=== PATIENT | male | born 1940 | race Caucasian/White ===

== ENCOUNTER 2023-12-16 03:29 | Emergency (ER) | payer MEDICARE, SELFPAY ==
[2023-12-16] VITALS (9 sets, daily range): BP systolic 149–202; BP diastolic 51–78; BMI 27.4
--- NOTE | 2023-12-16 04:08 | ED.GENMED ---
History of Present Illness
<BRIAN Hernandez - Last Filed: 12/16/23 21:51>
General
Chief Complaint: Chest Pain
Source: patient
Exam Limitations: none
Time Seen by Provider: 12/16/23 03:52
Nursing documentation reviewed up to this point in time: agreed with
Travel History
Have you had any contact with someone who has COVID-19?: No
Do you have any symptoms of coronavirus? Fever > 100 degrees, chills, cough, shortness of breath, sore throat, loss of taste or smell, muscle aches, or headache?: No
History of Present Illness
History of Present Illness:
Pt is a 83 YOM with significant ACS Hx including NSTEMI 2 weeks ago and RCA stenting and CKD stage 4 with dialysis presenting with 7/10 L sided crushing chest pain. Pt mentioned pain began around 0000 this morning and has persisted. Pt mentioned
this is similar pain to recent AR, but less severe. Pt mentioned accompanying mild LYON, dizziness, and SOB, fatigue. Pt is not hypoxic at this time. Pt gets dialysis Tues and Sat and only missed an appt while in hospital for his recent AR. Pt denied
any recent cough, rhinorrhea, fevers, vision changes, N/V/D/C, sensory changes. NKDA.
Past History
<BRIAN Hernandez - Last Filed: 12/16/23 21:51>
Past History
ED Past Medical History: CAD, HTN, Hypercholesterolemia, NIDDM, Renal failure and Other (TIA 2002)
ED Past Surgical History: Cardiac (Cardiac stents)
Social History
Tobacco: Former smoker
Alcohol: Occasional
Personal:
Living: with family
Employment: Retired
Review of Systems
<BRIAN Hernandez - Last Filed: 12/16/23 21:51>
Review of Systems
Allergies reviewed?: Yes
All Other Systems: ROS reviewed and negative except as documented in HPI and ROS
Constitutional: Reports fatigue
EENT: Reports no symptoms
Respiratory: Reports trouble breathing
Cardiac: Reports chest pain
ABD/GI: Reports no symptoms
: Reports no symptoms
Musculoskeletal: Reports no symptoms
Skin: Reports no symptoms
Neurological: Reports dizzy and headache
Hematologic/Lymphatic: Reports no symptoms
Psychiatric: Reports no symptoms
Phy Exam
<BRIAN Hernandez - Last Filed: 12/16/23 21:51>
General Physical Exam
General Presentation: moderate distress
General age: appears stated age
General Skin: warm, dry and pale
General Habitus: normal
General Mental: alert
General Hydration: appears well hydrated
ENT Exam
ENT Exam: EOMI
Eye Exam
Eye Exam: PERRL and EOMI
Cardiovascular Exam
Cardiovascular Exam: regular rate/rhythm, no edema, no gallop, no JVD, no murmur and normal peripheral pulses
Pulmonary Exam
Pulmonary Exam: lungs clear, no respiratory distress, no rales, no crackles, no rhonchi, no stridor, no wheezing and no cough
Gastrointestinal Exam
Gastrointestinal Exam: normal bowel sounds, non tender, soft, no pulsatile mass, non distended, no abdominal hernia and no masses
Neurological Exam
Neurological Exam: alert, oriented x3, no motor deficits, no sensory deficits and speech normal
Musculoskeletal Exam
Musculoskeletal Exam: neuro vasc intact
Skin Exam
Skin Exam: warm/dry, no rash and pallor
Psychiatric Exam
Psychiatric Exam: normal mood/affect
Scores
<BRIAN Hernandez - Last Filed: 12/16/23 21:51>
Heart Score for Chest Pain Patients
Heart Score for Chest Pain Patients: 6
Heart Score Risk: 20.3% MACE over next 6 weeks
<La R. Sheets, DO - Last Filed: 12/16/23 07:35>
Heart Score for Chest Pain Patients
STEMI patient?: No
History: Moderately Suspicious
ECG: Normal
Age: >/= 65 years
Risk Factors: >/= 3 Risk Factors or History of CAD
Troponin: >1 - <3 x Normal Limit
Heart Score for Chest Pain Patients: 6
Heart Score Risk: 20.3% MACE over next 6 weeks
<Evens Glover DO - Last Filed: 12/16/23 08:45>
Heart Score for Chest Pain Patients
Heart Score for Chest Pain Patients: 6
Heart Score Risk: 20.3% MACE over next 6 weeks
Course
<ST DavidIA - Last Filed: 12/16/23 21:51>
Orders/Labs/Results
Orders:
Orders
12/16/23 03:30
Electrocardiogram (*1) Urgent
Reason for Study: Chest Pain
EKG- Treatment ONCE
12/16/23 03:54
CMP [Comprehensive Metabolic Panel] Urgent
Complete Blood Count/With Diff Urgent
Troponin I Urgent
12/16/23 05:23
Aspirin Chewable [Low Strength Aspirin] 324 mg PO NOW STA
Nitroglycerin Sublingual [Nitrostat (Sublingual)] 0.4 mg SL NOW STA
12/16/23 05:36
Troponin I Urgent
12/16/23 05:54
Electrocardiogram (*1) Urgent
Reason for Study: Other
Other Reason for Exam: repeat EKG with trop
EKG- Treatment ONCE
12/16/23 06:03
Nitroglycerin Sublingual [Nitrostat (Sublingual)] 0.4 mg SL NOW STA
12/16/23 06:45
Nitroglycerin Sublingual [Nitrostat (Sublingual)] 0.4 mg SL NOW STA
12/16/23 07:33
Nitroglycerin Ointment [Nitro-Bid] 1 inch TOPICAL NOW STA
12/16/23 08:59
Amlodipine [Norvasc] 5 mg PO NOW STA
Amlodipine [Norvasc] 5 mg PO NOW STA
Abnormal Lab Results
12/16/23 12/16/23
03:54 05:36
WBC 4.0 L 10^3/uL
(4.8-10.8)
RBC 3.21 L 10^6/uL
(4.70-6.10)
Hgb 10.2 L g/dL
(13.0-18.0)
Hct 31.0 L %
(39.0-52.0)
MCV 96.6 H fL
(80.0-94.0)
MCH 31.8 H pg
(27.0-31.0)
MCHC 32.9 L g/dL
(33.0-37.0)
RDW 16.9 H %
(11.5-14.5)
MPV 10.6 H fL
(7.4-10.4)
Absolute Lymphs (auto) 0.8 L 10^3/uL
(1.2-3.4)
Immature Gran % 1.0 H %
(0-0.5)
Lymphocytes % 19.3 L %
(20.5-51.1)
Monocytes % 15.8 H %
(1.7-9.3)
BUN 55 H mg/dl
(9-20)
Creatinine 6.9 H* mg/dL
(0.7-1.3)
Glucose 105 H mg/dl
(70-99)
Calcium 7.6 L mg/dl
(8.4-10.2)
Troponin I 0.192 H* ng/ml 0.178 H* ng/ml
Total Protein 6.0 L g/dl
(6.3-8.2)
12/16/23 03:54
12/16/23 03:54
Vital Signs
Initial and Last Documented VS:
Initial Vital Signs
Pulse Pulse Ox
74 98
12/16/23 03:46 12/16/23 03:46
Last Documented Vital Signs
Temp Pulse Resp BP Pulse Ox
97.5 F 98 19 149/51 97
12/16/23 07:58 12/16/23 09:28 12/16/23 09:28 12/16/23 09:28 12/16/23 09:28
<La Sheets DO - Last Filed: 12/16/23 07:35>
Orders/Labs/Results
Orders:
Orders
12/16/23 03:30
Electrocardiogram (*1) Urgent
Reason for Study: Chest Pain
EKG- Treatment ONCE
12/16/23 03:54
CMP [Comprehensive Metabolic Panel] Urgent
Complete Blood Count/With Diff Urgent
Troponin I Urgent
12/16/23 05:23
Aspirin Chewable [Low Strength Aspirin] 324 mg PO NOW STA
Nitroglycerin Sublingual [Nitrostat (Sublingual)] 0.4 mg SL NOW STA
12/16/23 05:36
Troponin I Urgent
12/16/23 05:54
Electrocardiogram (*1) Urgent
Reason for Study: Other
Other Reason for Exam: repeat EKG with trop
EKG- Treatment ONCE
12/16/23 06:03
Nitroglycerin Sublingual [Nitrostat (Sublingual)] 0.4 mg SL NOW STA
12/16/23 06:45
Nitroglycerin Sublingual [Nitrostat (Sublingual)] 0.4 mg SL NOW STA
12/16/23 07:33
Nitroglycerin Ointment [Nitro-Bid] 1 inch TOPICAL NOW STA
12/16/23 08:59
Amlodipine [Norvasc] 5 mg PO NOW STA
Amlodipine [Norvasc] 5 mg PO NOW STA
Abnormal Lab Results
12/16/23 12/16/23
03:54 05:36
WBC 4.0 L 10^3/uL
(4.8-10.8)
RBC 3.21 L 10^6/uL
(4.70-6.10)
Hgb 10.2 L g/dL
(13.0-18.0)
Hct 31.0 L %
(39.0-52.0)
MCV 96.6 H fL
(80.0-94.0)
MCH 31.8 H pg
(27.0-31.0)
MCHC 32.9 L g/dL
(33.0-37.0)
RDW 16.9 H %
(11.5-14.5)
MPV 10.6 H fL
(7.4-10.4)
Absolute Lymphs (auto) 0.8 L 10^3/uL
(1.2-3.4)
Immature Gran % 1.0 H %
(0-0.5)
Lymphocytes % 19.3 L %
(20.5-51.1)
Monocytes % 15.8 H %
(1.7-9.3)
BUN 55 H mg/dl
(9-20)
Creatinine 6.9 H* mg/dL
(0.7-1.3)
Glucose 105 H mg/dl
(70-99)
Calcium 7.6 L mg/dl
(8.4-10.2)
Troponin I 0.192 H* ng/ml 0.178 H* ng/ml
Total Protein 6.0 L g/dl
(6.3-8.2)
12/16/23 03:54
12/16/23 03:54
Vital Signs
Initial and Last Documented VS:
Initial Vital Signs
Pulse Pulse Ox
74 98
12/16/23 03:46 12/16/23 03:46
Last Documented Vital Signs
Temp Pulse Resp BP Pulse Ox
97.5 F 98 19 149/51 97
12/16/23 07:58 12/16/23 09:28 12/16/23 09:28 12/16/23 09:28 12/16/23 09:28
<Evens Glover DO - Last Filed: 12/16/23 08:45>
Orders/Labs/Results
Orders:
Orders
12/16/23 03:30
Electrocardiogram (*1) Urgent
Reason for Study: Chest Pain
EKG- Treatment ONCE
12/16/23 03:54
CMP [Comprehensive Metabolic Panel] Urgent
Complete Blood Count/With Diff Urgent
Troponin I Urgent
12/16/23 05:23
Aspirin Chewable [Low Strength Aspirin] 324 mg PO NOW STA
Nitroglycerin Sublingual [Nitrostat (Sublingual)] 0.4 mg SL NOW STA
12/16/23 05:36
Troponin I Urgent
12/16/23 05:54
Electrocardiogram (*1) Urgent
Reason for Study: Other
Other Reason for Exam: repeat EKG with trop
EKG- Treatment ONCE
12/16/23 06:03
Nitroglycerin Sublingual [Nitrostat (Sublingual)] 0.4 mg SL NOW STA
12/16/23 06:45
Nitroglycerin Sublingual [Nitrostat (Sublingual)] 0.4 mg SL NOW STA
12/16/23 07:33
Nitroglycerin Ointment [Nitro-Bid] 1 inch TOPICAL NOW STA
12/16/23 08:59
Amlodipine [Norvasc] 5 mg PO NOW STA
Amlodipine [Norvasc] 5 mg PO NOW STA
Abnormal Lab Results
12/16/23 12/16/23
03:54 05:36
WBC 4.0 L 10^3/uL
(4.8-10.8)
RBC 3.21 L 10^6/uL
(4.70-6.10)
Hgb 10.2 L g/dL
(13.0-18.0)
Hct 31.0 L %
(39.0-52.0)
MCV 96.6 H fL
(80.0-94.0)
MCH 31.8 H pg
(27.0-31.0)
MCHC 32.9 L g/dL
(33.0-37.0)
RDW 16.9 H %
(11.5-14.5)
MPV 10.6 H fL
(7.4-10.4)
Absolute Lymphs (auto) 0.8 L 10^3/uL
(1.2-3.4)
Immature Gran % 1.0 H %
(0-0.5)
Lymphocytes % 19.3 L %
(20.5-51.1)
Monocytes % 15.8 H %
(1.7-9.3)
BUN 55 H mg/dl
(9-20)
Creatinine 6.9 H* mg/dL
(0.7-1.3)
Glucose 105 H mg/dl
(70-99)
Calcium 7.6 L mg/dl
(8.4-10.2)
Troponin I 0.192 H* ng/ml 0.178 H* ng/ml
Total Protein 6.0 L g/dl
(6.3-8.2)
12/16/23 03:54
12/16/23 03:54
Vital Signs
Initial and Last Documented VS:
Initial Vital Signs
Pulse Pulse Ox
74 98
12/16/23 03:46 12/16/23 03:46
Last Documented Vital Signs
Temp Pulse Resp BP Pulse Ox
97.5 F 98 19 149/51 97
12/16/23 07:58 12/16/23 09:28 12/16/23 09:28 12/16/23 09:28 12/16/23 09:28
<BRIAN Hernandez - Last Filed: 12/16/23 21:51>
MDM/Problems Addressed
Differential Diagnosis Includes:
ACS, acute HF, PE, pericarditis
MDM/Problems Addressed:
83 YOM presenting with chest pain
Chronic conditions affecting care:
ACS
Chronic conditions affecting care: Kidney disease
Acute Exacerbation and/or Progression of Chronic Illness:
ACS
Acute Exacerbation and/or Progression of Chronic Illness: Kidney disease
<BRIAN Hernandez - Last Filed: 12/16/23 21:51>
*Pulse Oximetry
Patient hypoxic: no
*EKG
Interpreted by ED Provider?: Yes
Interpretation: abnormal
Comparison EKG: changes noted
Rate: normal
Rhythm: sinus
[place]: normal axis
Interval: normal interval
QRS Pattern: right bundle branch block
Ischemia: no ischemia
*Bevel Polisher Interpretation
Rate: normal
Interpretation: normal
Rhythm: sinus
*Critical Care Note
Total Time (30-74mins, 75-104mins- exclusive of procedures): Not Applicable
<La Sheets DO - Last Filed: 12/16/23 07:35>
*EKG
Comparison EKG: no changes (Unchanged from previous November 28, 2023)
<BRIAN Hernandez - Last Filed: 12/16/23 21:51>
Update Note
Update Note:
12/16/23 0558: Pt is resting comfortably in bed. Pt admitted no pain relief with nitroglycerin dose. SBP in 190s at this time.
12/16/23 0645: Pt resting comfortably in bed. Pt mentioned improvement in pain. SBP in 170s at this time.
<Evens Glover, - Last Filed: 12/16/23 08:45>
Update Note
Update Note:
12/16/23 0558: Pt is resting comfortably in bed. Pt admitted no pain relief with nitroglycerin dose. SBP in 190s at this time.
12/16/23 0645: Pt resting comfortably in bed. Pt mentioned improvement in pain. SBP in 170s at this time.
0839: Pt seen by cardiology. They have cleared the patient for discharge. They will add amlodipine to medication regiment. Discussed case with Dr. Vargas, pt needs to go to dialysis today and they do have room for him to go.
ED Attending Note
<BRIAN Hernandez - Last Filed: 12/16/23 21:51>
-
Portions of this chart may have been created with voice recognition software.� Occasional wrong word or��sound alike� substitutions may have occurred due to the inherent limitations of voice recognition software.
<La Sheets DO - Last Filed: 12/16/23 07:35>
ED Attending Note
Patient seen and examined by attending physician: Yes
I performed the substantive portion of visit, reviewed & personally made and approve the management plan that is documented in note by myself or BRYAN.: Yes
I performed a history and physical exam of patient and discussed management with resident, I reviewed resident's note and agree with documented findings and plan of care.: Yes
ED Attending Note:
This is an 83-year-old gentleman who has history significant for coronary artery disease status post CABG 2017, hypertension, hyperlipidemia, end-stage renal disease on dialysis Tuesdays and Saturdays. He has history of paroxysmal A-fib on chronic
anticoagulation with Eliquis. History of prior strokes x 2 with recent hospitalization November 26 until December 02 when he presented with crushing substernal chest pain, EKG changes noting flipped T's anteriorly and questionable ST elevation
inferiorly. Urgent catheterization revealed 99% stenosis mid RCA where he received PTCA with stent.
Troponin peak at 26.8.
Hospitalization complicated with persistent abdominal pain, intermittent diarrhea, evaluated by GI. At 1 point concern for intermittent ischemic bowel but abdominal pain eventually resolved and patient was discharged to home on December 02 with
continuation of Eliquis and addition of Plavix.
Patient states he has been feeling relatively well until midnight tonight when he developed similar substernal chest pain, not as severe as November 26 but similar in quality and he is concern for recurrent AR. He denies shortness of breath, no
nausea nor vomiting, no palpitations, no dizziness nor lightheadedness. He has not had a cough, no fever nor chills. No return of abdominal pain, no diarrhea.
GENERAL: 83-year-old gentleman appears his stated age. Asleep upon initially entering exam room, awakens easily. He continues with some substernal chest pain, mild but not completely resolved. Overall appears comfortable.
EYE: anicteric
NECK: Supple, nontender, no meningismus, no significant adenopathy. No JVD.
ENT: oral mucosa is moist. No rhinorrhea.
CARDIAC: Regular rate and rhythm. no murmur.
LUNGS: Clear breath sounds bilaterally, no acute respiratory distress, no wheezes/rales/rhonchi
ABDOMEN: Soft, nondistended, without focal tenderness, no r/g, normoactive BS.
NEUROLOGICAL: Alert and oriented x3, no focal neuro deficits.
SKIN: Warm and dry, normal color, skin intact. No rash.
MUSCULOSKELETAL: No C/C/E. peripheral pulses are full and equal b/l. No palpable tenderness. AV graft left upper extremity.
PSYCH: Normal and appropriate interaction.
Concern for ACS/unstable angina. GERD. Less likely chest wall pain, pneumonia, CHF.
EKG shows normal sinus rhythm, right bundle branch block, no acute ST-T wave abnormalities and overall similar and unchanged from most recent EKG November 28. The prior flipped T waves anteriorly and minimal ST segment elevation in lead III noted on
EKG November 26 have resolved.
Patient noted to have significant systolic hypertension. Similar sporadic hypertension noted during most recent hospitalization.
He denies shortness of breath and lungs are clear to auscultation, nothing to suggest fluid overload.
Labs show troponin of 0.192 which is marked downtrend from most recent troponin of 11 on November 28. At this point unclear if this is continued downtrend from previous non-STEMI versus acute recurrent coronary ischemia.
Will give 325 mg of chewable aspirin and trial of sublingual nitroglycerin.
Will plan to repeat troponin and EKG at 6 AM. Will plan to contact cardiology.
12/16/2023 0646 AM
Troponin has trended down to 0.178.
Patient has had no relief of chest pain after 1 sublingual nitroglycerin but now reports mild to moderate relief after second sublingual nitroglycerin.
Hypertension is improving. Hypertension is improving, 170/70.
Will give additional sublingual nitroglycerin.
Awaiting return call from cardiology.
07:30
Pt pain free and comfortable after 3rd NTG.
Resting comfortably
BP improved 150/78---his baseline.
Case d/w cardiology who will evaluate at bedside this am.
Will add NTG paste.
Discharge Plan
Departure
Patient Disposition: Home (Routine Discharge)
Date of Disposition: 12/16/23
Time of Disposition: 08:41
Patient with high blood pressure during this ER visit?: Yes
Condition: Fair
Discharge Problem:
chest pain r/o [place]
Instructions: Chest Pain DCA Follow Up
Prescriptions:
New
amlodipine 5 mg tablet
5 mg PO DAILY Qty: 30 11RF
nitroglycerin 0.3 mg tablet, sublingual
0.3 mg sublingual Q5-15M PRN (Reason: chest pain) Qty: 30 0RF
No Action
furosemide 40 MG tablet
80 mg PO BID@0800,1600
Eliquis 2.5 MG tablet
2.5 mg PO BID Qty: 60 0RF
atorvastatin 80 MG tablet
80 mg PO HS
tamsulosin 0.4 MG capsule
0.4 mg PO BID
melatonin 3 mg Capsule
3 mg PO HS PRN (Reason: Sleep)
clopidogrel 75 mg Tablet
75 mg PO DAILY Qty: 30 0RF
pantoprazole 40 mg Tablet,Delayed Release (Dr/Ec)
40 mg PO DAILY Qty: 30 0RF
metoprolol succinate 25 mg Tablet Extended Release 24 Hr
12.5 mg PO DAILY Qty: 30 0RF
Referrals:
Jose Tamez MD [Family Provider] -
Ed Mak MD [Active] - 12/24/23 10:00 am (You have an appt to see Dr. Mak's physician paperhanger assistant, Laney, at the [facility] on 12/24/23 at 10 AM. Please call [phone] if you need to reschedule.)
Activity Restrictions/Additional Instructions:
Go right to dialysis
Interventions
Interventions:
*Risk Screen - Suicide Last Done: 12/16/23 03:53
*General Assessment Last Done: 12/16/23 03:53
*Neglect/Abuse Screening Last Done: 12/16/23 03:53
ED- Fall Risk Assessment Last Done: 12/16/23 07:58
*ED COVID-19 Vaccine History Last Done: 12/16/23 03:53
*Nursing Disposition Last Done: 12/16/23 09:28
ED- Cardiac Assessment Last Done: 12/16/23 07:58
Discharge Date and Time
Discharge Date/Time: 12/16/23 09:25
[2023-12-16 04:13] LABS: % Basophils 0.2 % (0-2); % Eosinophils 4.7 % (0-6); % Lymphocytes 19.3 % (20.5-51.1); % Monocytes 15.8 % (1.7-9.3); Absolute Eosinophils 0.2 10^3/uL (0-0.7); Absolute Lymphocytes 0.8 10^3/uL (1.2-3.4); Absolute Monocytes 0.6 10^3/uL (0.1-0.6); Absolute Neutrophils 2.4 10^3/uL (1.4-6.5); Hemoglobin 10.2 g/dL (13.0-18.0); Mean Corp Hgb Conc. 32.9 g/dL (33.0-37.0); Mean Corpuscular Hgb 31.8 pg (27.0-31.0); Mean Corpuscular Volume 96.6 fL (80.0-94.0); Mean Platelet Volume 10.6 fL (7.4-10.4); Nucleated Red Blood Cells % 0 % (-); Platelet Count 146 10^3/uL (130-400); Red Blood Cell Count 3.21 10^6/uL (4.70-6.10); Red Cell Dist. Width 16.9 % (11.5-14.5)
[2023-12-16 04:50] LABS: ALT (SGPT) 12 U/L (0-50); AST (SGOT) 22 U/L (17-59); Albumin 3.6 g/dl (3.5-5.0); Alkaline Phosphatase 72 U/L (38-126); Blood Urea Nitrogen 55 mg/dl (9-20); Calcium 7.6 mg/dl (8.4-10.2); Carbon Dioxide 27 mmol/L (22-30); Chloride 102 mmol/L (98-107); Estimated Creatinine Clearance 8 ml/min; Glucose 105 mg/dl (70-99); Potassium 4.3 mmol/L (3.5-5.1); Sodium 141 mmol/L (135-145); Total Bilirubin 0.6 mg/dl (0.2-1.3); Troponin I 0.192 ng/ml; eGFR 7.31
[2023-12-16] MEDS: LOW STRENGTH ASPIRIN 324 MG PO (05:32)
[2023-12-16] MEDS: NITROSTAT (SUBLINGUAL) 0.400000000000000022 MG SL ×3 (05:33→06:46)
[2023-12-16 06:13] LABS: Troponin I 0.178 ng/ml
[2023-12-16] MEDS: NITRO-BID 1 INCH TOPICAL (07:52)
--- NOTE | 2023-12-16 08:52 | CON.CAR ---
Addendum entered and electronically signed by Savanna Julien MD 12/16/23 12:36:
I saw and examined the patient.
The Appraiser Personal Property's note was reviewed and I agree with the note.
Comment: Patient is known to me from recent admission and PCI. Briefly he is a 83-year-old gentleman with past medical history of hypertension, hyperlipidemia, end-stage renal disease on dialysis, coronary artery disease status post prior bypass
with recent acute coronary syndrome status post RCA PCI on Plavix, paroxysmal atrial fibrillation on Eliquis and chronic amiodarone, multiple prior strokes, bilateral carotid artery disease, medication nonadherence who presents after a recurrent
episode of chest pressure while he was sitting in bed watching TV last night lasting for couple of hours. On presentation with ongoing chest discomfort his blood pressures were noted to be significantly elevated in the 200s systolic and he was
given to sublingual nitroglycerin with pain subsiding as his blood pressures improved. Most recently he continues to be hypertensive at 140s to 150s systolic. He is currently chest pain-free and has not had any recurrent symptoms.
Vital signs stable other than blood pressures as noted above. Exam is notable for a gentleman in no acute distress, normal S1 and S2, irregularly irregular heart rhythm, 2 out of 6 systolic ejection murmur at right upper sternal border, lungs are
clear to auscultation bilaterally, abdomen is soft, nontender, nondistended, warm extremities without significant edema.
Lab work reviewed with very low-level troponin, significantly reduced compared to recent admission where he presented with acute coronary syndrome. ECG is unchanged with stable right bundle branch block and ST-T wave changes.
Recommendations:
I do not think his discomfort at this time was due to acute coronary syndrome however more in the setting of poorly controlled hypertension. We will add 5 mg of amlodipine for better blood pressure control and continue his other medications
including low-dose beta-alicia and Lasix. Of note he has not tolerated higher doses of beta-blockers before given baseline bradycardia.
I reemphasized the importance of not missing any Plavix or Eliquis doses given recent PCI. Strongly encourage medication adherence to all his other cardiac medications.
Plan to continue outpatient dialysis as scheduled. He will follow-up with cardiology as scheduled on December 24, 2023.
Discussed plan with ED staff.
Savanna Julien MD, [facility], [facility]
Original Note:
Consultation
Consultation Request
Date/Time Consultation Requested: 12/16/23
Date/Time Consultation Performed: 12/16/23
Requesting Provider: Drs. Sheets and Adalberto in the ER
Performing Provider: Dr. Julien
Reason for Consultation: Chest pain, elevated Troponin
Medical History
-
History of Present Illness:
Patient came to [facility] very early this morning with chest pain and cardiology is now consulted. Patient was just admitted 11/26/23 until 12/02/23 with a NSTEMI peak Troponin 26.8 and he received a 2.75 mm Xience to mid RCA. EF was stable by echo.
Admission was prolonged due to nausea an vomiting. Also patient with a h/o ESRD and is on HD Tuesdays and Saturdays only by his direction/choice. He still makes urine. Patient was discharged to home with VN and has been driving himself to HD without
issue. Today is Friday and he says that he had his usual HD session on Friday. He had uneventful days Friday and Friday and then awoke very early this morning with a severe chest pain that felt identical to his [place] pain, but described as being
less intense. He came to [facility] and his initial Troponin was 0.192. ECG with a stable RBBB. Patient was also noted to be HTN at 202/71 initially. Patient was given NTG SL x1 and no real improvement in chest pain, but BP improved to 175/67. Patient
given a 2nd NTG SL and chest pain improved and BP again improved to 151/78. BP is now 149/51 and he is pain free. Patient is due for HD today.
PMH:
CAD
s/p LCX JOSE & PDA PTCA 2007
s/p CABG x3 GALVEZ to LAD, SVG sequential to OM-2 and OM-3 05/19/17
s/p NSTEMI and 2.75 mm Xience to mid RCA 11/26/2023
Sinus bradycardia/right bundle branch block
Paroxysmal Afib
Chronic Eliquis OAC
Chronic amiodarone
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
Linq monitor, no longer functional since 2019
HTN
Hyperlipidemia
ESRD on HD with LUE fistula
stenting of left upper extremity brachiocephalic fistula January 2022
h/o bilateral carotid disease
h/o medical noncompliance
h/o thrombocytopenia
Past Medical History
Past Medical History: Other (in HPI)
Past Surgical History: Cardiac (Circ and PDA PCI 2007, CABG 2016 and RCA PCI 11/26/23) and Other (LUE AV Fistula w/ stenting of left upper extremity brachiocephalic fistula January 2022)
Social History
Tobacco: Former Smoker
Alcohol: Occasional
Drug: None
Personal:
Living: Alone
Family History
Family History: Other (mother at age 70 from stroke, father at age 61 from [place]. No family history of lung cancer, lung disease)
Allergies / Home Medications
Allergy/AdvReac Type Severity Reaction Status Date / Time
No Known Allergies Allergy Verified 12/16/23 03:33
Medication Instructions Recorded Confirmed Type
furosemide 40 mg tablet 80 mg PO BID@0800,1600 Fluid 05/04/21 11/26/23 History
retention/Swelling
apixaban 2.5 mg tablet (Eliquis) 2.5 mg PO BID blood thinner #60 05/12/21 11/26/23 Rx
tabs
atorvastatin 80 mg tablet 80 mg PO HS High cholesterol 01/03/22 11/26/23 History
tamsulosin 0.4 mg capsule 0.4 mg PO BID Urinary issue 02/08/22 11/26/23 History
melatonin 3 mg capsule 3 mg PO HS PRN Sleep 11/27/23 11/27/23 History
clopidogrel 75 mg tablet 75 mg PO DAILY #30 tabs 12/02/23 Rx
metoprolol succinate 25 mg 12.5 mg PO DAILY #30 tabs 12/02/23 Rx
tablet,extended release 24 hr
pantoprazole 40 mg tablet,delayed 40 mg PO DAILY #30 tabs 12/02/23 Rx
release
Review of Systems
-
History Source: Patient and Family (daughter sitting bedside helps with HPI)
All other systems: Negative unless noted
Physical Exam
Vital Signs
Temp Pulse Resp BP Pulse Ox
97.5 F 69 18 151/78 97
12/16/23 07:58 12/16/23 07:58 12/16/23 07:58 12/16/23 07:58 12/16/23 07:58
GEN: NAD, AAOx3
HEENT: MMM, EOMI
LUNGS: CTA B/L without wheeze or rales
CV: Reg, S1/S2, 1 syst LSB
ABD: soft, BS+, ND, NT
EXT: No clubbing, cyanosis, lesions or edema B/L
NEURO: Gross non-focal
SKIN: Warm, dry and pink. No rash
Lab Results
12/16/23 03:54
12/16/23 03:54
Troponin I 0.178 ng/ml H* 12/16/23 05:36
Impression / Plan
-
PCP: Dr. Tamez
Cardiology: Dr. Mak
Impression:
Presented with chest pain 12/16/23
HTN urgency
Elevated Troponin
Recent admission for NSTEMI, RCA PCI and vomiting 11/26/23 until 12/02/23
CAD
s/p LCX JOSE & PDA PTCA 2007
s/p CABG x3 GALVEZ to LAD, SVG sequential to OM-2 and OM-3 05/19/17
s/p NSTEMI and 2.75 mm Xience to mid RCA 11/26/2023
Sinus bradycardia/right bundle branch block
Paroxysmal Afib
Chronic Eliquis OAC
Chronic amiodarone
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
Linq monitor, no longer functional since 2019
HTN
Hyperlipidemia
ESRD on HD with LUE fistula
stenting of left upper extremity brachiocephalic fistula January 2022
h/o bilateral carotid disease
h/o medical noncompliance
h/o thrombocytopenia
Echo 09/2020:�normal lv size and function, no regional wall abnormalities, EF 55-60%, mild lvh, severely dilated left atrium, mild mr, mild tr, estimated PAP 34-39
Echo 11/13/2023:�EF 60-65%, mild cLVH, mild LAE.
Echo 12/02/23: EF 60-65%, no WMA, mild conc LVH
Plan:
-Patient came to [facility] very early this morning with chest pain and cardiology is now consulted. Patient was just admitted 11/26/23 until 12/02/23 with a NSTEMI peak Troponin 26.8 and he received a 2.75 mm Xience to mid RCA. EF was stable by echo.
Admission was prolonged due to nausea an vomiting. Also patient with a h/o ESRD and is on HD Tuesdays and Saturdays only by his direction/choice. He still makes urine. Patient was discharged to home with VN and has been driving himself to HD without
issue. Today is Friday and he says that he had his usual HD session on Friday. He had uneventful days Friday and Friday and then awoke very early this morning with a severe chest pain that felt identical to his [place] pain, but described as being
less intense. He came to [facility] and his initial Troponin was 0.192. ECG with a stable RBBB. Patient was also noted to be HTN at 202/71 initially. Patient was given NTG SL x1 and no real improvement in chest pain, but BP improved to 175/67. Patient
given a 2nd NTG SL and chest pain improved and BP again improved to 151/78. BP is now 149/51 and he is pain free. Patient is due for HD today.
-Initial Troponin 0.192 and then trended down to 0.178. ECG reviewed by me is stable and without acute ischemic change. Chest pain initially that seemed to improve with lowering BP after NTG SL. Do not think this is ACS. Troponin is trending down
from recent NSTEMI.
-Suspect HTN urgency. Will add amlodipine 5 mg daily. Amlodipine e-scribed by me.
-Cont usual dose of Toprol XL 12.5 mg daily. Toprol XL dose lowered last admission due to bradycardia.
-Patient needs his HD session. Of note patient only has HD twice a week by his own wishes. He still makes urine.
-Cont Plavix 75 mg daily
-Cont Eliquis 2.5 mg BID for ESRD on HD (although twice weekly and not thrice weekly) and age 83
-Patient completed 1 week of triple therapy following recent NSTEMI and RCA PCI earlier this month. Hgb is stable at 10.2 on Eliquis and Plavix.
-LDL 65 on 11/27/2023.� Continue outpatient dose of Lipitor 80 mg daily.
-Known prior history of noncompliance and increased depression lately with the passing of his and their wedding anniversary, but his daughter is supportive and is here with him in the ER today.� Will continue to urge patient to take his
medications.
-Cardiology f/u already scheduled for 12/24/23, added to ER discharge instructions.
[2023-12-16] MEDS: NORVASC 5 MG PO (09:13)
--- NOTE | 2023-12-16 09:26 | EDRN ---
Reviewed discharge instructions with patient. Verbalized understanding. Ambulated with steady gait to the lobby.
== END 2023-12-16 09:25 | disposition home or self-care (01) ==
LOC: EMR 03:29
PROVIDERS: EMERGENCY PHYSICIAN Emergency Medicine; FAMILY PHYSICIAN Family Medicine
DX: R07.89 Other chest pain (principal); R42 Dizziness and giddiness; R51.9 Headache, unspecified; R06.00 Dyspnea, unspecified; I25.10 Atherosclerotic heart disease of native coronary artery without angina pectoris; Z95.1 Presence of aortocoronary bypass graft; I13.2 Hypertensive heart and chronic kidney disease with heart failure and with stage 5 chronic kidney disease, or end stage renal disease; I50.9 Heart failure, unspecified; E11.22 Type 2 diabetes mellitus with diabetic chronic kidney disease; N18.6 End stage renal disease; Z99.2 Dependence on renal dialysis; K57.90 Diverticulosis of intestine, part unspecified, without perforation or abscess without bleeding; Z91.148 Patient's other noncompliance with medication regimen for other reason; I48.0 Paroxysmal atrial fibrillation; E78.00 Pure hypercholesterolemia, unspecified; I45.10 Unspecified right bundle-branch block; I25.2 Old myocardial infarction; Z86.73 Personal history of transient ischemic attack (TIA), and cerebral infarction without residual deficits; Z87.891 Personal history of nicotine dependence; Z79.01 Long term (current) use of anticoagulants; Z79.899 Other long term (current) drug therapy
CPT/HCPCS: 99284; 80053; 84484; 85025; 93005

== ENCOUNTER 2023-12-20 04:12 | Emergency (ER) | payer MEDICARE, SELFPAY ==
[2023-12-20 04:18] VITALS: BP 170/72
[2023-12-20 04:30] VITALS: BMI 26.7
[2023-12-20 04:53] VITALS: BP 168/60
[2023-12-20 05:00] VITALS: BP 164/60
[2023-12-20 05:03] LABS: % Basophils 0.4 % (0-2); % Eosinophils 2.6 % (0-6); % Immature Granulocytes 2.6 % (0-0.5); % Lymphocytes 11.7 % (20.5-51.1); % Monocytes 13.9 % (1.7-9.3); % Neutrophils 68.8 % (42.2-75.2); Absolute Eosinophils 0.1 10^3/uL (0-0.7); Absolute Immature Granulocytes 0.1 10^3/uL (0-0.05); Absolute Lymphocytes 0.6 10^3/uL (1.2-3.4); Absolute Monocytes 0.7 10^3/uL (0.1-0.6); Absolute Neutrophils 3.5 10^3/uL (1.4-6.5); Hematocrit 31.5 % (39.0-52.0); Hemoglobin 10.8 g/dL (13.0-18.0); Mean Corp Hgb Conc. 34.3 g/dL (33.0-37.0); Mean Corpuscular Hgb 32.1 pg (27.0-31.0); Mean Corpuscular Volume 93.8 fL (80.0-94.0); Mean Platelet Volume 10.7 fL (7.4-10.4); Nucleated Red Blood Cells % 0 % (-); Platelet Count 143 10^3/uL (130-400); Red Blood Cell Count 3.36 10^6/uL (4.70-6.10); Red Cell Dist. Width 15.9 % (11.5-14.5); White Blood Cell Count 5.1 10^3/uL (4.8-10.8)
--- NOTE | 2023-12-20 05:19 | ED.GENMED ---
History of Present Illness
<DO Timothy Smith Filed: 12/20/23 07:08>
General
Chief Complaint: Abdominal Symptoms
Source: patient
Time Seen by Provider: 12/20/23 04:47
Travel History
Have you had any contact with someone who has COVID-19?: No
Do you have any symptoms of coronavirus? Fever > 100 degrees, chills, cough, shortness of breath, sore throat, loss of taste or smell, muscle aches, or headache?: No
History of Present Illness
History of Present Illness:
83-year-old male presents to the emergency room complaining of abdominal pain, nausea, vomiting and diarrhea. Patient states the pain in his abdomen became quite significant tonight. He has vomited multiple times. No fever or chills. Recent
hospitalization for NSTEMI and had a stent placed in the RCA.
Past History
<DO Timothy Smith Filed: 12/20/23 07:08>
Past History
ED Past Medical History: CAD, HTN, Hypercholesterolemia, NIDDM, Renal failure and Other (TIA 2002)
ED Past Surgical History: Cardiac (Cardiac stents)
Social History
Tobacco: Former smoker
Alcohol: Occasional
Personal:
Living: with family
Employment: Retired
Phy Exam
<DO Timothy Smith Filed: 12/20/23 07:08>
Physical Exam
Physical Exam:
General: Awake, Alert, Oriented X3. Patient is chronically ill and uncomfortable
Vitals: unremarkable
Head: Atraumatic
Eyes: Pupils equal, EOMI
Throat: Airway intact, no exudates
Neck: Trachea midline
Lungs: Clear and equal b/l
Heart: Regular rate, no murmurs
Abd: Soft, left lower abdominal tenderness to palpation, No pulsatile mass
Neuro: Nonfocal
Skin: Warm, dry, no rash
Extremities: pulses equal b/l, no edema
Course
<Evens Glover DO - Last Filed: 12/20/23 07:08>
Orders/Labs/Results
Orders:
Orders
12/20/23 04:28
Electrocardiogram (*1) Urgent
Reason for Study: Abdominal Pain
EKG- Treatment ONCE
IV Insert/Care/Rem.- Treatment PRN
12/20/23 04:55
Complete Blood Count/With Diff Urgent
Comprehensive Metabolic Panel Urgent
LDH Urgent
Comment: ADD ON
Lipase Urgent
Troponin I Urgent
Comment: .
12/20/23 05:16
CT Abd/Pel (IV only)-DH only Urgent
Comment:
Reason For Exam: left lower quad abd pain
12/20/23 05:19
0.9% Sodium Chloride 250 ml [Nss] 250 ml IV BOLUS
HYDROmorphone [Dilaudid] 0.5 mg IV NOW STA
Ondansetron Injectable [Zofran] 4 mg IV NOW STA
12/20/23 07:14
Lactic Acid Urgent
12/20/23 08:33
Albumin Human 25% 50 ml [Flexbumin 25% For Hemodialysis] 12.5 grams IV HD-Q1HPRN PRN
Epoetin Terry [Epogen] 10,000 units IV HD-ONCE ONE
Mannitol 12.5 grams IV HD-Q1HPRN PRN
Sodium Chloride [Sodium Chloride 4 Meq/ml For Hemodialysis] 10 ml IV HD-Q1HPRN PRN
Hemodialysis treatment As Directed
Treatment date:: 12/20/23
Treatment type: Hemodialysis
Ultrafiltration (kg): 2.5kg
Treatment time (duration): 3 hours 30 minutes
Use dialysis access:: AVF
Dialyzer:: Optiflux 160
Blood flow rate minimum: 350
Blood flow rate maximum: 400
Dialysis flow rate: 600 mL/min
Dialysate temperature: 35 degrees Celsius
Sodium (Na): 140
Potassium (K): 2
Calcium (Ca): 2.5
Bicarbonate (HCO3): 35
12/20/23 08:34
Add On- LAB Routine
Tests Added?: LDH
Abnormal Lab Results
12/20/23
04:55
RBC 3.36 L 10^6/uL
(4.70-6.10)
Hgb 10.8 L g/dL
(13.0-18.0)
Hct 31.5 L %
(39.0-52.0)
MCH 32.1 H pg
(27.0-31.0)
RDW 15.9 H %
(11.5-14.5)
MPV 10.7 H fL
(7.4-10.4)
Abs Immat Gran (auto) 0.1 H 10^3/uL
(0-0.05)
Absolute Lymphs (auto) 0.6 L 10^3/uL
(1.2-3.4)
Absolute Monos (auto) 0.7 H 10^3/uL
(0.1-0.6)
Immature Gran % 2.6 H %
(0-0.5)
Lymphocytes % 11.7 L %
(20.5-51.1)
Monocytes % 13.9 H %
(1.7-9.3)
Carbon Dioxide 20 L mmol/L
(22-30)
BUN 64 H mg/dl
(9-20)
Creatinine 8.1 H* mg/dL
(0.7-1.3)
Glucose 111 H mg/dl
(70-99)
Calcium 7.6 L mg/dl
(8.4-10.2)
Lactate Dehydrogenase 260 H U/L
(120-246)
Troponin I 0.038 H* ng/ml
12/20/23 04:55
12/20/23 04:55
Vital Signs
Initial and Last Documented VS:
Initial Vital Signs
Temp Pulse Resp BP Pulse Ox
97.7 F 75 20 170/72 100
12/20/23 04:18 12/20/23 04:18 12/20/23 04:18 12/20/23 04:18 12/20/23 04:18
Last Documented Vital Signs
Temp Pulse Resp BP Pulse Ox
97.7 F 68 23 156/59 97
12/20/23 04:18 12/20/23 08:30 12/20/23 08:30 12/20/23 08:00 12/20/23 07:30
<Abiodun Wilkins DO - Last Filed: 12/20/23 15:11>
Orders/Labs/Results
Orders:
Orders
12/20/23 04:28
Electrocardiogram (*1) Urgent
Reason for Study: Abdominal Pain
EKG- Treatment ONCE
IV Insert/Care/Rem.- Treatment PRN
12/20/23 04:55
Complete Blood Count/With Diff Urgent
Comprehensive Metabolic Panel Urgent
LDH Urgent
Comment: ADD ON
Lipase Urgent
Troponin I Urgent
Comment: .
12/20/23 05:16
CT Abd/Pel (IV only)-DH only Urgent
Comment:
Reason For Exam: left lower quad abd pain
12/20/23 05:19
0.9% Sodium Chloride 250 ml [Nss] 250 ml IV BOLUS
HYDROmorphone [Dilaudid] 0.5 mg IV NOW STA
Ondansetron Injectable [Zofran] 4 mg IV NOW STA
12/20/23 07:14
Lactic Acid Urgent
12/20/23 08:33
Albumin Human 25% 50 ml [Flexbumin 25% For Hemodialysis] 12.5 grams IV HD-Q1HPRN PRN
Epoetin Terry [Epogen] 10,000 units IV HD-ONCE ONE
Mannitol 12.5 grams IV HD-Q1HPRN PRN
Sodium Chloride [Sodium Chloride 4 Meq/ml For Hemodialysis] 10 ml IV HD-Q1HPRN PRN
Hemodialysis treatment As Directed
Treatment date:: 12/20/23
Treatment type: Hemodialysis
Ultrafiltration (kg): 2.5kg
Treatment time (duration): 3 hours 30 minutes
Use dialysis access:: AVF
Dialyzer:: Optiflux 160
Blood flow rate minimum: 350
Blood flow rate maximum: 400
Dialysis flow rate: 600 mL/min
Dialysate temperature: 35 degrees Celsius
Sodium (Na): 140
Potassium (K): 2
Calcium (Ca): 2.5
Bicarbonate (HCO3): 35
12/20/23 08:34
Add On- LAB Routine
Tests Added?: LDH
Abnormal Lab Results
12/20/23
04:55
RBC 3.36 L 10^6/uL
(4.70-6.10)
Hgb 10.8 L g/dL
(13.0-18.0)
Hct 31.5 L %
(39.0-52.0)
MCH 32.1 H pg
(27.0-31.0)
RDW 15.9 H %
(11.5-14.5)
MPV 10.7 H fL
(7.4-10.4)
Abs Immat Gran (auto) 0.1 H 10^3/uL
(0-0.05)
Absolute Lymphs (auto) 0.6 L 10^3/uL
(1.2-3.4)
Absolute Monos (auto) 0.7 H 10^3/uL
(0.1-0.6)
Immature Gran % 2.6 H %
(0-0.5)
Lymphocytes % 11.7 L %
(20.5-51.1)
Monocytes % 13.9 H %
(1.7-9.3)
Carbon Dioxide 20 L mmol/L
(22-30)
BUN 64 H mg/dl
(9-20)
Creatinine 8.1 H* mg/dL
(0.7-1.3)
Glucose 111 H mg/dl
(70-99)
Calcium 7.6 L mg/dl
(8.4-10.2)
Lactate Dehydrogenase 260 H U/L
(120-246)
Troponin I 0.038 H* ng/ml
12/20/23 04:55
12/20/23 04:55
Vital Signs
Initial and Last Documented VS:
Initial Vital Signs
Temp Pulse Resp BP Pulse Ox
97.7 F 75 20 170/72 100
12/20/23 04:18 12/20/23 04:18 12/20/23 04:18 12/20/23 04:18 12/20/23 04:18
Last Documented Vital Signs
Temp Pulse Resp BP Pulse Ox
97.7 F 68 23 156/59 97
12/20/23 04:18 12/20/23 08:30 12/20/23 08:30 12/20/23 08:00 12/20/23 07:30
<Evens Glover DO - Last Filed: 12/20/23 07:08>
MDM/Problems Addressed
Differential Diagnosis Includes:
Diverticulitis, ischemic bowel, intra-abdominal abscess
MDM/Problems Addressed:
Patient presents with significant left lower quadrant abdominal pain. He is quite tender to palpation. He is afebrile. CT with contrast obtained and is read as radiology is no specific abnormality. He does have extensive diverticulosis.
Radiology also also noted very advanced vascular calcifications. Given this it is possible his pain is due to ischemic colitis. He has had diarrhea though not bloody. Will hospitalize the patient for further evaluation. Today is a dialysis day
for him so I have sent a message to Dr. Vargas notifying him the patient will need dialysis today.
<Abiodun Wilkins, DO - Last Filed: 12/20/23 15:11>
*Critical Care Note
Total Time (30-74mins, 75-104mins- exclusive of procedures): Not Applicable
<Abiodun Wilkins, DO - Last Filed: 12/20/23 15:11>
Update Note
Update Note:
Renal saw patient. Renal said that the patient can go to his dialysis session this morning as an outpatient. Patient feels comfortable with this. I spoke to the patient at bedside.
ED Attending Note
<Evens Glover, DO - Last Filed: 12/20/23 07:08>
-
Portions of this chart may have been created with voice recognition software.� Occasional wrong word or��sound alike� substitutions may have occurred due to the inherent limitations of voice recognition software.
Discharge Plan
Departure
Patient Disposition: Home (Routine Discharge)
Date of Disposition: 12/20/23
Time of Disposition: 07:05
Admit to: Med/Surg
Patient with high blood pressure during this ER visit?: Yes
Condition: Fair
Discharge Problem:
Abdominal pain, ESRD (end stage renal disease)
Instructions: Hemodialysis (DC), Abdominal Pain
Prescriptions:
No Action
furosemide 40 MG tablet
80 mg PO BID@0800,1600
Eliquis 2.5 MG tablet
2.5 mg PO BID Qty: 60 0RF
atorvastatin 80 MG tablet
80 mg PO HS
tamsulosin 0.4 MG capsule
0.4 mg PO BID
melatonin 3 mg Capsule
3 mg PO HS PRN (Reason: Sleep)
clopidogrel 75 mg Tablet
75 mg PO DAILY Qty: 30 0RF
pantoprazole 40 mg Tablet,Delayed Release (Dr/Ec)
40 mg PO DAILY Qty: 30 0RF
metoprolol succinate 25 mg Tablet Extended Release 24 Hr
12.5 mg PO DAILY Qty: 30 0RF
amlodipine 5 mg tablet
5 mg PO DAILY Qty: 30 11RF
nitroglycerin 0.3 mg tablet, sublingual
0.3 mg sublingual Q5-15M PRN (Reason: chest pain) Qty: 30 0RF
Referrals:
Jose Tamez MD [Family Provider] -
Activity Restrictions/Additional Instructions:
Proceed for dialysis this morning. Return here if worse.
Interventions
Interventions:
*Risk Screen - Suicide Last Done: 12/20/23 04:18
*General Assessment Last Done: 12/20/23 04:18
*Neglect/Abuse Screening Last Done: 12/20/23 04:18
ED- Fall Risk Assessment Last Done: 12/20/23 04:18
*ED COVID-19 Vaccine History Last Done: 12/20/23 04:18
*Nursing Disposition Last Done: 12/20/23 09:02
KZ-Zftqhe-Bfusfuumno Assessment Last Done: 12/20/23 04:25
ED- Cardiac Assessment Last Done: 12/20/23 04:25
Discharge Date and Time
Discharge Date/Time: 12/20/23 09:02
[2023-12-20 05:22] LABS: ALT (SGPT) 14 U/L (0-50); AST (SGOT) 22 U/L (17-59); Albumin 4.1 g/dl (3.5-5.0); Alkaline Phosphatase 82 U/L (38-126); Blood Urea Nitrogen 64 mg/dl (9-20); Calcium 7.6 mg/dl (8.4-10.2); Carbon Dioxide 20 mmol/L (22-30); Chloride 105 mmol/L (98-107); Estimated Creatinine Clearance 7 ml/min; Glucose 111 mg/dl (70-99); Lipase 232 U/L (23-300); Potassium 4.6 mmol/L (3.5-5.1); Sodium 137 mmol/L (135-145); Total Bilirubin 0.8 mg/dl (0.2-1.3); Total Protein 6.4 g/dl (6.3-8.2); eGFR 6.03
[2023-12-20 05:30] LABS: Troponin I 0.038 ng/ml
[2023-12-20] MEDS: DILAUDID 0.5 MG IV (05:56)
[2023-12-20] MEDS: ZOFRAN 4 MG IV (05:57)
[2023-12-20 06:00] VITALS: BP 174/63
[2023-12-20] MEDS: NSS 250 IV (06:10)
[2023-12-20 07:00] VITALS: BP 163/64
[2023-12-20 07:41] LABS: Lactic Acid 0.9 mmol/L (0.7-2.0)
[2023-12-20 08:00] VITALS: BP 156/59
--- NOTE | 2023-12-20 08:26 | CON.MD ---
Consultation - Medical
-
Assessment:
Status post RCA stent on 11/26/23
ESRD ([facility]) [facility] in [place]
Diarrhea chronic
Weakness
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
Hypertension
Atrial fibrillation
BPH
Anemia of CKD
CAD/CABG 2016
Cerebrovascular disease
TIA 2002
History ESBL Klebsiella pneumoniae UTI
Gout
Medical noncompliance (allows only two 3-hour HD treatments weekly)
Plan:
-HD today
-check LDH
-prior eval suggested possible enteritis, but also has significant ASCVD involving celiac/SMA
-[id number]
[2023-12-20 11:57] LABS: LDH 260 U/L (120-246)
== END 2023-12-20 09:02 | disposition home or self-care (01) ==
LOC: EMR 04:12
PROVIDERS: EMERGENCY PHYSICIAN Emergency Medicine; FAMILY PHYSICIAN Family Medicine; OTHER PHYSICIAN Specialist
DX: R10.32 Left lower quadrant pain (principal); R11.2 Nausea with vomiting, unspecified; R19.7 Diarrhea, unspecified; I25.10 Atherosclerotic heart disease of native coronary artery without angina pectoris; I12.0 Hypertensive chronic kidney disease with stage 5 chronic kidney disease or end stage renal disease; N18.6 End stage renal disease; Z99.2 Dependence on renal dialysis; I48.0 Paroxysmal atrial fibrillation; E11.22 Type 2 diabetes mellitus with diabetic chronic kidney disease; E78.00 Pure hypercholesterolemia, unspecified; M10.9 Gout, unspecified; K57.90 Diverticulosis of intestine, part unspecified, without perforation or abscess without bleeding; N40.0 Benign prostatic hyperplasia without lower urinary tract symptoms; D63.1 Anemia in chronic kidney disease; I25.2 Old myocardial infarction; Z79.01 Long term (current) use of anticoagulants; Z91.158 Patient's noncompliance with renal dialysis for other reason; Z95.1 Presence of aortocoronary bypass graft; Z95.5 Presence of coronary angioplasty implant and graft; Z86.73 Personal history of transient ischemic attack (TIA), and cerebral infarction without residual deficits; Z86.718 Personal history of other venous thrombosis and embolism; Z87.891 Personal history of nicotine dependence
CPT/HCPCS: 99285; 96375; 96374; 74177; 80053; 83605; 83615; 83690; 84484; 85025; 93005; Q9967

== ENCOUNTER 2024-01-06 12:48 | Inpatient (IN) | payer MEDICARE, SELFPAY ==
[2024-01-06] VITALS (12 sets, daily range): BP systolic 153–185; BP diastolic 50–78; BMI 26.6; BMI 26.5
[2024-01-06 04:36] LABS: Hematocrit 27.2 % (39.0-52.0); Hemoglobin 9.4 g/dL (13.0-18.0); Mean Corp Hgb Conc. 34.6 g/dL (33.0-37.0); Mean Corpuscular Hgb 31.3 pg (27.0-31.0); Mean Corpuscular Volume 90.7 fL (80.0-94.0); Mean Platelet Volume 11.3 fL (7.4-10.4); Platelet Count 143 10^3/uL (130-400); Red Cell Dist. Width 14.6 % (11.5-14.5)
[2024-01-06 05:03] LABS: ALT (SGPT) 14 U/L (0-50); AST (SGOT) 20 U/L (17-59); Albumin 3.9 g/dl (3.5-5.0); Alkaline Phosphatase 93 U/L (38-126); Blood Urea Nitrogen 53 mg/dl (9-20); Calcium 7.8 mg/dl (8.4-10.2); Carbon Dioxide 28 mmol/L (22-30); Chloride 101 mmol/L (98-107); Estimated Creatinine Clearance 9 ml/min; Glucose 115 mg/dl (70-99); Potassium 4.2 mmol/L (3.5-5.1); Sodium 139 mmol/L (135-145); Total Bilirubin 0.7 mg/dl (0.2-1.3); Total Protein 6.3 g/dl (6.3-8.2)
[2024-01-06 05:11] LABS: Troponin I 0.032 ng/ml
[2024-01-06 05:30] LABS: Absolute Neutrophils -Man Diff 3.7 10^3/uL (1.4-6.5); Band Neutrophils 10 % (0-3); Eosinophils 2 % (0-6); Lymphocytes 14 % (20-51); Monocytes 10 % (2-9); Normal RBC Morphology Yes; Platelets Checked Yes; Segmented Neutrophils 64 % (42-75); Total Cells Counted 100; Toxic Granulation 1+
--- NOTE | 2024-01-06 06:10 | ED.GENMED ---
History of Present Illness
General
Chief Complaint: Chest Pain
Source: patient and records
Exam Limitations: none
Time Seen by Provider: 01/06/24 06:08
Nursing documentation reviewed up to this point in time: agreed with
Travel History
Have you had any contact with someone who has COVID-19?: No
Do you have any symptoms of coronavirus? Fever > 100 degrees, chills, cough, shortness of breath, sore throat, loss of taste or smell, muscle aches, or headache?: No
History of Present Illness
History of Present Illness:
83-year-old male presents emergency department complaining of chest heaviness, that feels like an elephant sitting on his chest. This began at midnight. It has dissipated some. It feels similar to when he had an RI about a month ago. He had an
RCA stent placed by Dr. Julien.
Past History
Past History
ED Past Medical History: CAD, HTN, Hypercholesterolemia, NIDDM, Renal failure and Other (TIA 2002)
ED Past Surgical History: Cardiac (Cardiac stents)
Social History
Tobacco: Former smoker
Alcohol: Occasional
Personal:
Living: with family
Employment: Retired
Review of Systems
Review of Systems
Allergies reviewed?: Yes
All Other Systems: Not applicable
Constitutional: Reports no symptoms
EENT: Reports no symptoms
Respiratory: Reports no symptoms
Cardiac: Reports chest pain
ABD/GI: Reports no symptoms
: Reports no symptoms
Musculoskeletal: Reports no symptoms
Skin: Reports no symptoms
Neurological: Reports no symptoms
Endocrine: Reports no symptoms
Hematologic/Lymphatic: Reports no symptoms
Psychiatric: Reports no symptoms
Phy Exam
Physical Exam
Physical Exam:
Physical Exam
General: no apparent distress, not acutely ill
Neck: supple. no meningeal signs. normal posterior pharynx
Heart: s1/s2 regular rate and rhythm, no murmur. equal radial
pulses.
HEENT: Pupils equal round reactive to light, EOMI
Lungs: no acute respiratory distress. clear bilaterally
Abdomen: normal bowel sounds. not tender. no CVAT
Neuro: alert and oriented. no focal neurological deficits cranial nerves II through XII intact
Skin: no rash
Psychiatric: well kept. interactive and cooperative
Extremities: no edema. no calf tenderness. negative homans. good distal pulses
Scores
Heart Score for Chest Pain Patients
STEMI patient?: No
History: Highly Suspicious
ECG: Nonspecific Repolarization
Age: >/= 65 years
Risk Factors: >/= 3 Risk Factors or History of CAD
Troponin: >1 - <3 x Normal Limit
Heart Score for Chest Pain Patients: 8
Heart Score Risk: 72.7 % MACE over next 6 weeks
Course
Orders/Labs/Results
Orders:
Orders
01/06/24 03:50
Electrocardiogram (*1) Urgent
Reason for Study: Chest Pain
EKG- Treatment ONCE
01/06/24 04:26
CMP [Comprehensive Metabolic Panel] Urgent
Complete Blood Count/With Diff Urgent
Manual Differential Urgent
Troponin I Urgent
01/06/24 06:17
Aspirin 325 mg PO NOW STA
Clopidogrel Bisulfate [Plavix] 75 mg PO NOW STA
01/06/24 06:19
CR Chest - 2 Views Urgent
Comment:
Reason For Exam: chest pain
01/06/24 06:58
Troponin I Urgent
01/06/24 08:54
Troponin I Stat
Abnormal Lab Results
01/06/24 01/06/24
04:26 06:58
RBC 3.00 L 10^6/uL
(4.70-6.10)
Hgb 9.4 L g/dL
(13.0-18.0)
Hct 27.2 L %
(39.0-52.0)
MCH 31.3 H pg
(27.0-31.0)
RDW 14.6 H %
(11.5-14.5)
MPV 11.3 H fL
(7.4-10.4)
Band Neutrophils 10 H %
(0-3)
Lymphocytes (Manual) 14 L %
(20-51)
Monocytes (Manual) 10 H %
(2-9)
BUN 53 H mg/dl
(9-20)
Creatinine 5.8 H* mg/dL
(0.7-1.3)
Glucose 115 H mg/dl
(70-99)
Calcium 7.8 L mg/dl
(8.4-10.2)
Troponin I 0.035 H* ng/ml
01/06/24 04:26
01/06/24 04:26
Vital Signs
Initial and Last Documented VS:
Initial Vital Signs
Temp Pulse Resp BP Pulse Ox
97.8 F 72 26 184/66 97
01/06/24 03:53 01/06/24 03:53 01/06/24 03:53 01/06/24 03:53 01/06/24 03:53
Last Documented Vital Signs
Temp Pulse Resp BP Pulse Ox
97.8 F 69 13 174/62 99
01/06/24 03:53 01/06/24 11:15 01/06/24 11:15 01/06/24 11:00 01/06/24 11:15
*Radiology
Radiology exam reviewed: radiology read reviewed (Chest x-ray no acute finding)
*Pulse Oximetry
Patient hypoxic: no
*EKG
Interpreted by ED Provider?: Yes
EKG Intrepretation Date: 01/06/24
EKG Intrepretation Time: 04:03
Interpretation: abnormal
Comparison EKG: no changes
Heart Rate: 69
Rate: normal
Rhythm: sinus
Bowie: normal axis
Interval: normal interval
QRS Pattern: right bundle branch block
Ischemia: no ischemia
*Asbestos Coverer Interpretation
Rate: normal
Interpretation: normal
Heart Rate: 66
Rhythm: sinus
*Critical Care Note
Total Time (30-74mins, 75-104mins- exclusive of procedures): Not Applicable
Data Reviewed
Review of Other/Old Records Reveals: Operative Reports (Prior cardiac catheterization 11/26/2023 99% occlusion RCA, RCA stent placed)
Source: records
Prescriptions/Medications Considered But Not Given:
Heparin considered, but not indicated
Patient Management
Social determinants of health affecting care: Living situation
Discussion with other providers: Hospitalist and Cell Maker (Dr. Muir, cardiology recommends admit, cath in 24-48hrs)
Escalation/DeEscalation of care consider admission/obs:
Admission indicated
ED Attending Note
-
Portions of this chart may have been created with voice recognition software.� Occasional wrong word or��sound alike� substitutions may have occurred due to the inherent limitations of voice recognition software.
Discharge Plan
Departure
Patient Disposition: Admit
Date of Disposition: 01/06/24
Time of Disposition: 11:56
Admit to: IVU
Presentation/result/management discussed w/ accepting MD/DO: Hospitalist
Patient with high blood pressure during this ER visit?: Yes
Condition: Good
Discharge Problem:
Unstable angina, Chronic renal failure
Prescriptions:
No Action
Eliquis 2.5 MG tablet
2.5 mg PO BID Qty: 60 0RF
atorvastatin 80 MG tablet
80 mg PO HS
tamsulosin 0.4 MG capsule
0.4 mg PO BID
clopidogrel 75 mg Tablet
75 mg PO DAILY Qty: 30 0RF
pantoprazole 40 mg Tablet,Delayed Release (Dr/Ec)
40 mg PO DAILY Qty: 30 0RF
amlodipine 5 mg tablet
5 mg PO DAILY Qty: 30 11RF
melatonin 3 mg Tablet
3 mg PO HS PRN (Reason: sleep)
lorazepam 0.5 mg Tablet
0.5 mg PO TID PRN (Reason: anxiety)
Patient Comments:
01/06/2024, pt. filled this med. on 12/11/2023 for 60 tablets according to PDMP.
temazepam 15 mg Capsule
15 mg PO DAILY
Patient Comments:
01/06/2024, pt. filled this med. on 12/12/2023 for 90 capsules according to PDMP.
furosemide 80 mg Tablet
80 mg PO BID@0800,1600
losartan 25 mg Tablet
25 mg PO DAILY
cyanocobalamin (vitamin B-12)
1 tab PO TUSA@0800
Patient Comments:
01/06/2024, taken on dialysis days.
metoprolol succinate 25 mg tablet extended release 24 hr
25 mg PO DAILY
Referrals:
Jose Tamez MD [Family Provider] -
Interventions
Interventions:
*Risk Screen - Suicide Last Done: 01/06/24 04:15
*General Assessment Last Done: 01/06/24 04:15
ED- Fall Risk Assessment Last Done: 01/06/24 04:15
*ED COVID-19 Vaccine History Last Done: 01/06/24 04:15
ED- Cardiac Assessment Last Done: 01/06/24 04:15
[2024-01-06] MEDS: ASPIRIN 325 MG PO (06:57)
[2024-01-06] MEDS: PLAVIX 75 MG PO (06:57)
[2024-01-06 07:48] LABS: Troponin I 0.035 ng/ml
[2024-01-06 09:26] LABS: Troponin I 0.031 ng/ml
--- NOTE | 2024-01-06 09:45 | CON.CAR ---
Addendum entered and electronically signed by Gregory Muir DO 01/06/24 20:17:
I saw and examined the patient.
The Incinerator Plant Laborer's note was reviewed and I agree with the note.
Comment:
Plan:
Pt is here for his second ER eval for chest pain that reminds him of his angina prior to his recent PCI. Discussed options including stress vs cardiac cath and he was agreeable to cath which is reasonable as he continues to have angina.
Hold Eliquis in anticipation of cath. Last Eliquis was PM Jan 05.
Coordinate cath with nephrology, likely next 24-48 hrs.
Cont Toprol which was recently increased in the office earlier this month
Cont Norvasc.
Cont Lipitor. Last LDL was 65.
Patient only has HD twice a week by his own wishes. He still makes urine. Cont Lasix 80 mg PO BID.
Cont Plavix 75 mg daily
Gave emotional support of his 's recent passing.
�
Original Note:
Consultation
Consultation Request
Date/Time Consultation Requested: 01/06/24
Date/Time Consultation Performed: 01/06/24
Requesting Provider: Dr. Hair in the ER
Performing Provider: Dr. Muir
Reason for Consultation: Chest pain, h/o CAD
Medical History
-
History of Present Illness:
Patient came to [facility] this morning with chest pain and cardiology has been consulted. Patient says that he missed his usual HD appointment on Friday due to snow, but he made up for it with an unscheduled HD session yesterday, Friday. Patient says
that he is scheduled again on Friday. Patient only has HD on Tuesdays and Saturdays which is not a standard HD schedule. Patient says that he had a normal HD sessions Friday. He went to bed last night feeling fine, but awoke around 0300 this AM
with chest pain. Chest pain has been constant. He was given Plavix 75 mg and aspirin 325 mg and he says that his pain is a little bit better, but still has some pressure. He has occasional SOB, but no KEYES. No palpitations. Chest pain feels identical
to his [place] pain. Initial Troponin was 0.032 then 0.035 then 0.031. Patient was also noted to be HTN at 184/66 and he says that sometimes it is higher at HD. Patient was seen in the ER for chest pain 12/16/23 and he had amlodipine 5 mg daily was added
at that time.
PMH:
Recent admission for NSTEMI, RCA PCI and vomiting 11/26/23 until 12/02/23
CAD
s/p LCX JOSE & PDA PTCA 2007
s/p CABG x3 GALVEZ to LAD, SVG sequential to OM-2 and OM-3 05/19/17
s/p NSTEMI and 2.75 mm Xience to mid RCA 11/26/2023
Sinus bradycardia/right bundle branch block
Paroxysmal Afib
Chronic Eliquis OAC
Chronic amiodarone
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
Linq monitor, no longer functional since 2019
HTN
Hyperlipidemia
ESRD on HD with LUE fistula
stenting of left upper extremity brachiocephalic fistula January 2022
h/o bilateral carotid disease
h/o medical noncompliance
h/o thrombocytopenia
Past Medical History
Past Medical History: Other (in HPI)
Past Surgical History: Cardiac (Circ and PDA PCI 2007, CABG 2016 and RCA PCI 11/26/23) and Other (LUE AV Fistula w/ stenting of left upper extremity brachiocephalic fistula January 2022)
Social History
Tobacco: Former Smoker
Alcohol: Occasional
Drug: None
Personal:
Family History
Family History: Other (mother at age 70 from stroke, father at age 61 from [place]. No family history of lung cancer, lung disease)
Allergies / Home Medications
Allergy/AdvReac Type Severity Reaction Status Date / Time
No Known Allergies Allergy Verified 01/06/24 03:59
Medication Instructions Recorded Confirmed Type
furosemide 40 mg tablet 80 mg PO BID@0800,1600 Fluid 05/04/21 01/06/24 History
retention/Swelling
apixaban 2.5 mg tablet (Eliquis) 2.5 mg PO BID blood thinner #60 05/12/21 01/06/24 Rx
tabs
atorvastatin 80 mg tablet 80 mg PO HS High cholesterol 01/03/22 01/06/24 History
tamsulosin 0.4 mg capsule 0.4 mg PO BID Urinary issue 02/08/22 01/06/24 History
melatonin 3 mg capsule 3 mg PO HS PRN Sleep 11/27/23 01/06/24 History
clopidogrel 75 mg tablet 75 mg PO DAILY #30 tabs 12/02/23 01/06/24 Rx
metoprolol succinate 25 mg 12.5 mg PO DAILY #30 tabs 12/02/23 01/06/24 Rx
tablet,extended release 24 hr
pantoprazole 40 mg tablet,delayed 40 mg PO DAILY #30 tabs 12/02/23 01/06/24 Rx
release
amlodipine 5 mg tablet 5 mg PO DAILY Blood pressure #30 12/16/23 01/06/24 Rx
tabs
nitroglycerin 0.3 mg sublingual 0.3 mg sublingual Q5-15M PRN chest 12/16/23 01/06/24 Rx
tablet pain #30 tabs
Review of Systems
-
History Source: Patient
All other systems: Negative unless noted
Physical Exam
Vital Signs
Temp Pulse Resp BP Pulse Ox
97.8 F 66 16 171/69 97
01/06/24 03:53 01/06/24 06:30 01/06/24 06:30 01/06/24 06:00 01/06/24 06:30
GEN: NAD, AAOx3
HEENT: MMM, EOMI
LUNGS: CTA B/L without wheeze or rales
CV: Reg, S1/S2, 1/6 syst LSB
ABD: soft, BS+, ND, NT
EXT: No clubbing, cyanosis, lesions or edema B/L
NEURO: Gross non-focal
SKIN: Warm, dry and pink. No rash
Lab Results
01/06/24 04:26
01/06/24 04:26
Troponin I 0.031 ng/ml 01/06/24 08:54
Impression / Plan
-
PCP: Dr. Tamez
Cardiology: Dr. Mak
Impression:
Presented with chest pain 12/16/23
HTN urgency
Elevated Troponin
Recent admission for NSTEMI, RCA PCI and vomiting 11/26/23 until 12/02/23
CAD
s/p LCX JOSE & PDA PTCA 2007
s/p CABG x3 GALVEZ to LAD, SVG sequential to OM-2 and OM-3 05/19/17
s/p NSTEMI and 2.75 mm Xience to mid RCA 11/26/2023
Sinus bradycardia/right bundle branch block
Paroxysmal Afib
Chronic Eliquis OAC
Chronic amiodarone
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
Linq monitor, no longer functional since 2019
HTN
Hyperlipidemia
ESRD on HD with LUE fistula
stenting of left upper extremity brachiocephalic fistula January 2022
h/o bilateral carotid disease
h/o medical noncompliance
h/o thrombocytopenia
Echo 09/2020:�normal lv size and function, no regional wall abnormalities, EF 55-60%, mild lvh, severely dilated left atrium, mild mr, mild tr, estimated PAP 34-39
Echo 11/13/2023:�EF 60-65%, mild cLVH, mild LAE.
Echo 12/02/23: EF 60-65%, no WMA, mild conc LVH
Plan:
-Patient came to [facility] this morning with chest pain and cardiology has been consulted. Patient says that he missed his usual HD appointment on Friday due to snow, but he made up for it with an unscheduled HD session yesterday, Friday. Patient says
that he is scheduled again on Friday. Patient only has HD on Tuesdays and Saturdays which is not a standard HD schedule. Patient says that he had a normal HD sessions Friday. He went to bed last night feeling fine, but awoke around 0300 this AM
with chest pain. Chest pain has been constant. He was given Plavix 75 mg and aspirin 325 mg and he says that his pain is a little bit better, but still has some pressure. He has occasional SOB, but no KEYES. No palpitations. Chest pain feels identical
to his [place] pain. Initial Troponin was 0.032 then 0.035 then 0.031. Patient was also noted to be HTN at 184/66 and he says that sometimes it is higher at HD. Patient was seen in the ER for chest pain 12/16/23 and he had amlodipine 5 mg daily was added
at that time.
-Recommend admission for [facility] in [facility]
-Troponin was 0.032 then 0.035 then 0.031. Will manage as a nonischemic myocardial injury Troponin elevation for now pending cath results.
-Toprol XL was increased to 25 mg daily at last office visit 12/24/23.
-Cont amlodipine 5 mg daily.
-He has losartan listed on his med list, but this looks like a mistake
-Patient only has HD twice a week by his own wishes. He still makes urine. Cont Lasix 80 mg PO BID.
-Cont Plavix 75 mg daily
-Cont Eliquis 2.5 mg BID for ESRD on HD (although twice weekly and not thrice weekly) and age 83
-LDL 65 on 11/27/2023.� Continue outpatient dose of Lipitor 80 mg daily.
-Known prior history of noncompliance and increased depression lately with the passing of his and their wedding anniversary, but his daughter is supportive and is here with him in the ER today.� Will continue to urge patient to take his
medications.
-ECG reviewed by me with cRBBB and no acute ischemic changes.
--- NOTE | 2024-01-06 12:04 | HPS.HSE ---
Addendum entered and electronically signed by Katalina Epstein MD 01/06/24 13:06:
I saw and examined the patient.
The SALES RECEPTIONIST or PA's note was reviewed and I agree with the note.
Comment: 83 male presented with chest pain, heaviness like on chest that last for two hours. No sob. He reported that pain was similar when he had the heart attack in 11/2023. No fever. No cough. troponin at 0.035 which is around his baseline. EKG
is reviewed.
Physical Exam
General: Other (no acute distress, conversant)
HEENT: Moist mucous membranes and PERRLA
Respiratory: Clear; No Wheezes, Rales or Rhonchi
Cardiac: S1/S2 and Regular Rhythm; No Murmur
GI: Soft, Non Distended, Normal Bowel Sounds.
Musculoskeletal: No Clubbing, No Cyanosis and No Edema
Neuro: AO x 3, followed commands.
Psych: Calm; No Anxious or Depressed
#chest pain/hxt of CAD/ R/o NSTEMI
-recent stent on RCA
-He is pain free now
No need for IV heparin gtt
plan for cardiac cath in 24-48 hours
-Troponin 0.035 then 0.031, around his baseline
-Chest x-ray with no impression of acute cardiopulmonary process
-EKG with normal sinus rhythm with right bundle branch block
-hold Eliquis
-received asa and Plavix in ER
-asa, Plavix continued
- Appreciate cardiology input
#ESRD on HD -on dialysis� fri, , Friday
-nephrology consulted
# Anemia of chronic disease
-Hemoglobin stable at 9.4
-No active bleeding
-Continue to monitor
#Paroxysmal atrial fibrillation- in SR
-Metoprolol continued
-Hold Eliquis
# Essential hypertension
-Norvasc continued
-furosemide continued
-losartan continued
#GERD
-PPI continued
#BPH
-Flomax continued
#anxiety
-lorazepam tid
Hyperlipidemia - cw statins
DVT prophylaxis
scd
#CODE status
-DNR
Total time spent to see the patient, examine the patient on the floor, review data and lab results, discuss treatment plan with patient, nursing staff, ER doctor around 75 minutes
�
Original Note:
Family Physician
-
Family Physician: Jose Tamez
Chief Complaint
-
mid sternum chest pain
History of Present Illness
83-year-old male history for coronary artery disease, hypertension, hyperlipidemia diabetes, TIA, chronic kidney disease presented to us with midsternal chest pain which lasted for few hours last night. Stated that feels like an elephant sitting on
his chest. Denied any short of breath. Patient denied fever or chills. Stated some headache denies dizziness or syncopal episode. Patient denied abdominal pain, nausea, vomiting, diarrhea. Patient denied dysuria, hematuria.
Patient received aspirin and Plavix in the ER. Management
Medical History
Past Medical History
Past Medical History: Reports Other
Additional Past Medical History:
Coronary artery disease
Hypertension
Hyperlipidemia
NIDDM
End-stage renal disease
TIA
Past Surgical History: Reports Other
Additional Past Surgical History:
Cardiac stent
CABG 2016
(LUE AV Fistula w/ stenting of left upper extremity brachiocephalic fistula January 2022)
Social History
Tobacco: Former Smoker
Alcohol: None
Drug: None
Personal: Single
Living: Alone
Family History
Family History: Not pertinent
Allergies / Home Medications
Allergies reflects when Allergies were last updated in [employer] [facility]
Home Medications with original date entered in [employer] ([facility])
Allergy/Medication List:
Allergies
Allergy/AdvReac Type Severity Reaction Status Date / Time
No Known Allergies Allergy Verified 01/06/24 03:59
Home Medications
apixaban 2.5 mg tablet (Eliquis) 2.5 mg PO BID blood thinner #60 tabs 05/12/21
atorvastatin 80 mg tablet 80 mg PO HS High cholesterol 01/03/22
tamsulosin 0.4 mg capsule 0.4 mg PO BID Urinary issue 02/08/22
clopidogrel 75 mg tablet 75 mg PO DAILY #30 tabs 12/02/23
pantoprazole 40 mg tablet,delayed release 40 mg PO DAILY #30 tabs 12/02/23
amlodipine 5 mg tablet 5 mg PO DAILY Blood pressure #30 tabs 12/16/23
cyanocobalamin (vitamin B-12) 1 tab PO TUSA@0800 01/06/24
furosemide 80 mg tablet 80 mg PO BID@0800,1600 01/06/24
lorazepam 0.5 mg tablet 0.5 mg PO TID PRN anxiety 01/06/24
losartan 25 mg tablet 25 mg PO DAILY 01/06/24
melatonin 3 mg tablet 3 mg PO HS PRN sleep 01/06/24
metoprolol succinate 25 mg tablet,extended release 24 hr 25 mg PO DAILY 01/06/24
temazepam 15 mg capsule 15 mg PO DAILY 01/06/24
Review of Systems
-
Constitutional: Reports No Symptoms
EENT: Reports No Symptoms
Respiratory: Reports No Symptoms
Cardiac: Reports Chest Pain
Abdomen/GI: Reports No Symptoms
: Reports No Symptoms
Musculoskeletal: Reports No Symptoms
Skin: Reports No Symptoms
Neurological: Reports No Symptoms
Endocrine: Reports No Symptoms
Hematologic/Lymphatic: Reports No Symptoms
Psych: Reports No Symptoms
Physical Exam
Vital Signs
Vital Signs
Temp Pulse Resp BP Pulse Ox
97.8 F 69 13 174/62 99
01/06/24 03:53 01/06/24 11:15 01/06/24 11:15 01/06/24 11:00 01/06/24 11:15
Physical Exam
General: Well Developed, Well Nourished and No Apparent Distress
HEENT: NormoCephalic, Moist mucous membranes and Atraumatic
Respiratory: Clear
Cardiac: S1/S2 and Regular Rhythm; No Murmur or Rub
GI: Soft, Non Tender, Non Distended and Normal Bowel Sounds; No Organomegaly
Rectal: Deferred by Provider
Musculoskeletal: No Clubbing, No Cyanosis and No Edema
Skin: No Rash
Neuro: AO x 3 and Nonfocal/grossly intact
Psych: Calm
Laboratory Results
-
01/06/24 04:26
01/06/24 04:26
Laboratory Results
Total Bilirubin 0.7 mg/dl (0.2-1.3) 01/06/24 04:26
AST 20 U/L (17-59) 01/06/24 04:26
ALT 14 U/L (0-50) 01/06/24 04:26
Alkaline Phosphatase 93 U/L (38-126) 01/06/24 04:26
Troponin I 0.031 ng/ml 01/06/24 08:54
Data Reviewed
-
Diagnostic Radiology: Report Reviewed by me
Lab Data: Labs Reviewed by me
Impression/Plan
-
#chest pain/hxt of CAD/ R/o NSTEMI
-recent stent on RCA
-plan for cardiac cath in 24-48 hours
-Troponin 0.035 then 0.031
-Chest x-ray with no impression of acute cardiopulmonary process
-EKG with normal sinus rhythm with right bundle branch block
-trend trop, EKG
-hold eliquis
-received asa and Plavix in ER
-asa, plavix continued
-cardiology following
#chornic kidney disease
-on dialysis fri, , Friday
-nephrology consulted
# Anemia of chronic disease
-Hemoglobin stable at 9.4
-No active bleeding
-Continue to monitor
#Paroxysmal atrial fibrillation- in SR
-Metoprolol continued
-Hold Eliquis
# Essential hypertension
-Norvasc continued
-furosemide continued
-losartan continued
#GERD
-PPI continued
#BPH
-flomax continued
#anxiety
-lorazepam tid
Hyperlipidemia - cw statins
DVT prophylaxis
scd
#CODE status
-DNR
[2024-01-06 14:25] LABS: Glucose - Point of Care 166 mg/dl (70-99)
--- NOTE | 2024-01-06 14:27 | W.CON.NEPH ---
Consultation
-
Date/Time Consultation Requested: 01/06/24 1233
Date/Time Consultation Performed: 01/06/24 1245
Requesting Provider: Dr Katalina Moreno
Performing Provider: Anastacia Wall
Reason for Consultation: ESRD
Medical History
-
Chief Complaint: CP
History of Present Illness:
This is an 83-year-old male who is well known to us for his end-stage renal disease on hemodialysis Tuesdays, Saturdays at [facility]. By his own preference, he would not come do more treatments. He does have known coronary disease with bypass
grafting as well as recent stenting last month
of his RCA. He has hypertension on a multidrug regimen as well as paroxysmal atrial fibrillation on Eliquis therapy presented with CP started midnight. It lasted for 2hrs not associated with sob. Reports CP similar to old ACS in Nov but not so
intense this time. He had missed HD on Friday due to snow and last HD was yesterday. He was seen by [facility] today and plan LHC if needed.
Past Medical History
1. ESRD.
2. Left arm AV fistula with angioplasty.
3. Coronary artery disease, bypass grafting, stent 2023.
4. Anemia.
5. Gout.
6. Diabetes mellitus, type 2.
7. Paroxysmal atrial fibrillation.
8. Stroke.
9. BPH.
10. Hypertension.
Social History
Tobacco: Former Smoker
Alcohol: None
Family History
no h/o CKD
Allergies / Home Medications
Allergy/AdvReac Type Severity Reaction Status Date / Time
No Known Allergies Allergy Verified 01/06/24 03:59
Medication Instructions Recorded Confirmed Type
apixaban 2.5 mg tablet (Eliquis) 2.5 mg PO BID blood thinner #60 05/12/21 01/06/24 Rx
tabs
atorvastatin 80 mg tablet 80 mg PO HS High cholesterol 01/03/22 01/06/24 History
tamsulosin 0.4 mg capsule 0.4 mg PO BID Urinary issue 02/08/22 01/06/24 History
clopidogrel 75 mg tablet 75 mg PO DAILY #30 tabs 12/02/23 01/06/24 Rx
pantoprazole 40 mg tablet,delayed 40 mg PO DAILY #30 tabs 12/02/23 01/06/24 Rx
release
amlodipine 5 mg tablet 5 mg PO DAILY Blood pressure #30 12/16/23 01/06/24 Rx
tabs
cyanocobalamin (vitamin B-12) 1 tab PO TUSA@0800 01/06/24 01/06/24 History
furosemide 80 mg tablet 80 mg PO BID@0800,1600 01/06/24 01/06/24 History
lorazepam 0.5 mg tablet 0.5 mg PO TID PRN anxiety 01/06/24 01/06/24 History
losartan 25 mg tablet 25 mg PO DAILY 01/06/24 01/06/24 History
melatonin 3 mg tablet 3 mg PO HS PRN sleep 01/06/24 01/06/24 History
metoprolol succinate 25 mg 25 mg PO DAILY 01/06/24 01/06/24 History
tablet,extended release 24 hr
temazepam 15 mg capsule 15 mg PO DAILY 01/06/24 01/06/24 History
Review of Systems
-
All complete 12 point ROS inquired and found negative other than stated in HPI
Physical Exam
Vital Signs
Vital Signs
Temp Pulse Resp BP Pulse Ox
97.8 F 69 13 174/62 99
01/06/24 03:53 01/06/24 11:15 01/06/24 11:15 01/06/24 11:00 01/06/24 11:15
Lab Results
WBC 5.0 10^3/uL (4.8-10.8) 01/06/24 04:26
RBC 3.00 10^6/uL (4.70-6.10) L 01/06/24 04:26
Hgb 9.4 g/dL (13.0-18.0) L 01/06/24 04:26
Hct 27.2 % (39.0-52.0) L 01/06/24 04:26
Plt Count 143 10^3/uL (130-400) 01/06/24 04:26
Sodium 139 mmol/L (135-145) 01/06/24 04:26
Potassium 4.2 mmol/L (3.5-5.1) 01/06/24 04:26
Chloride 101 mmol/L (98-107) 01/06/24 04:26
Carbon Dioxide 28 mmol/L (22-30) 01/06/24 04:26
BUN 53 mg/dl (9-20) H 01/06/24 04:26
Creatinine 5.8 mg/dL (0.7-1.3) H* 01/06/24 04:26
eGFR 9.00 01/06/24 04:26
Glucose 115 mg/dl (70-99) H 01/06/24 04:26
Calcium 7.8 mg/dl (8.4-10.2) L 01/06/24 04:26
Albumin 3.9 g/dl (3.5-5.0) 01/06/24 04:26
Physical Exam
General: Awake, Alert, Oriented and AOx3
HEENT: EOMI and Anicteric
Respiratory: Clear
Cardiac: S1/S2 and Regular Rate/Rhythm
Abdomen: Soft, Nontender and Nondistended
Musculoskeletal: No Cyanosis and No Edema
Skin: No Rash
Neuro: Nonfocal/Grossly Intact
Psych: Insight/judgement good and Appropriate
Assessment/Plan
-
Assessment:
Chest pain
Status post RCA stent on 11/26/23
ESRD ([facility]) [facility] in [place]
Diarrhea chronic
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
Hypertension
Atrial fibrillation
BPH
Anemia of CKD
CAD/CABG 2016
Cerebrovascular disease
TIA 2002
History ESBL Klebsiella pneumoniae UTI
Gout
Medical noncompliance (allows only two 3-hour HD treatments weekly)
Plan:
A/w CP started midnight with recent h/o RCA stent on 11/26
Pt has HD yesterday since missing Friday
Last week he only had HD once on Friday , only does HD twice weekly
We reviewed about imp of avoiding underdialysis with few and shorter HD session of his choice
he agreed to have HD tomorrow and not today
cont home meds
cards follows +/- cath
d/w pt and primary
[2024-01-06] MEDS: LASIX 80 MG PO (15:11)
--- NOTE | 2024-01-06 15:32 | PTCARENOTE ---
Received patient from ED into room 2122. Patient AAOx3, VSS, denies any chest pain at this time. Per H&P, patient with history of NIDDM; patient states he does not monitor his sugars at home. Blood sugar 166, MD made aware; per MD, no need for
sliding scale insulin at this time. Patient with history of ESRD on dialysis Tu/Sat; patient made aware of tentative HD scheduled for tomorrow per nephro. Patient oriented to room and call kaveh, states no concerns at this time.
[2024-01-06 17:58] LABS: Glucose - Point of Care 129 mg/dl (70-99)
[2024-01-06] MEDS: FLOMAX 0.400000000000000022 MG PO (20:20)
[2024-01-06] MEDS: RESTORIL 15 MG PO (21:00)
[2024-01-06] MEDS: LIPITOR 80 MG PO (21:01)
[2024-01-06 21:50] LABS: Glucose - Point of Care 91 mg/dl (70-99)
[2024-01-07] VITALS (7 sets, daily range): BP systolic 119–167; BP diastolic 60–71; PULSE 106; BMI 26.1
[2024-01-07 04:57] LABS: Hematocrit 25.9 % (39.0-52.0); Mean Corp Hgb Conc. 34.7 g/dL (33.0-37.0); Mean Corpuscular Hgb 31.4 pg (27.0-31.0); Mean Corpuscular Volume 90.2 fL (80.0-94.0); Mean Platelet Volume 10.9 fL (7.4-10.4); Platelet Count 131 10^3/uL (130-400); Red Blood Cell Count 2.87 10^6/uL (4.70-6.10); Red Cell Dist. Width 14.4 % (11.5-14.5); White Blood Cell Count 4.7 10^3/uL (4.8-10.8)
--- NOTE | 2024-01-07 05:06 | DOWNTIME ---
There was a [employer] Client [employer] Downtime on 01/07/2024 from 0111 to 01/07/2024 at 0405. Downtime documentation of patient's care, including medication administrations, has been reconciled in the electronic record per guidelines. Refer to the
patient's paper chart under the miscellaneous tab to see printed paper medication records and downtime forms.
[2024-01-07 05:30] LABS: Blood Urea Nitrogen 64 mg/dl (9-20); Calcium 7.7 mg/dl (8.4-10.2); Carbon Dioxide 27 mmol/L (22-30); Chloride 100 mmol/L (98-107); Estimated Creatinine Clearance 8 ml/min; Glucose 110 mg/dl (70-99); Sodium 137 mmol/L (135-145); eGFR 6.95
[2024-01-07 05:45] LABS: Glucose - Point of Care 115 mg/dl (70-99)
[2024-01-07] MEDS: LASIX PO (08:30)
[2024-01-07] MEDS: FLOMAX 0.400000000000000022 MG PO ×2 (08:35→19:48)
[2024-01-07] MEDS: NORVASC 5 MG PO (08:35)
[2024-01-07] MEDS: LOW STRENGTH ASPIRIN 81 MG PO (08:35)
[2024-01-07] MEDS: PLAVIX 75 MG PO (08:35)
[2024-01-07] MEDS: PROTONIX 40 MG PO (08:35)
--- NOTE | 2024-01-07 08:42 | W.PN.HOSP.TC ---
Today's Communication/Plan
-
.
Assessment / Plan
Assessment / Plan
83 male presented with chest pain, heaviness like on chest that last for two hours. No sob. He reported that pain was similar when he had the heart attack in 11/2023. No fever. No cough. troponin at 0.035 which is around his baseline. EKG is
reviewed.
Physical Exam
General: Other (no acute distress, conversant)
HEENT: Moist mucous membranes and PERRLA
Respiratory: Clear; No Wheezes, Rales or Rhonchi
Cardiac: S1/S2 and Regular Rhythm; No Murmur
GI: Soft, Non Distended, Normal Bowel Sounds.
Musculoskeletal: No Clubbing, No Cyanosis and No Edema
Neuro: AO x 3, followed commands.
Psych: Calm; No agitation.
#Angina
No recurrent chest pain over night
Plan for cath
Hx of CAD/ R/o NSTEMI/ recent stent on RCA
-Troponin 0.035 then 0.031, around his baseline
-Chest x-ray with no impression of acute cardiopulmonary process
-EKG with normal sinus rhythm with right bundle branch block
-holding Eliquis
-received asa and Plavix in ER
-asa, Plavix continued
- Appreciate cardiology input
#ESRD on HD -on dialysis� fri, , Friday
hx of non compliance with hD
-nephrology consulted
# Anemia of chronic disease
-Hemoglobin stable at 9.4
-No active bleeding
-Continue to monitor
#Paroxysmal atrial fibrillation- in SR
-Metoprolol continued
-Hold Eliquis
# Essential hypertension
-Norvasc continued
-furosemide continued
-losartan continued
#GERD
-PPI continued
#BPH
-Flomax continued
#anxiety
-lorazepam tid
Hyperlipidemia - cw statins
DVT prophylaxis
scd
#CODE status
-DNR
Total time spent to see the patient, examine the patient on the floor, review data and lab results, discuss treatment plan with patient, nursing staff around 55 minutes
Anticipated Discharge: 24 - 48 hours
Subjective/Interval History
-
Date of Service: January 07, 2024
no sob
no chest pain
Objective Data
-
Labs:
Laboratory Results
01/07/24
04:33
WBC 4.7 L
Hgb 9.0 L
Hct 25.9 L
Plt Count 131
Sodium 137
Potassium 4.0
Chloride 100
Carbon Dioxide 27
BUN 64 H
Creatinine 7.2 H*
Glucose 110 H
Calcium 7.7 L
Vital Signs:
Vital Signs
Temp Pulse Resp BP Pulse Ox
97.2 F 71 14 167/68 97
01/07/24 07:15 01/07/24 08:35 01/07/24 07:15 01/07/24 08:35 01/07/24 07:15
I&O
01/06/24 01/07/24 01/08/24
06:59 06:59 06:59
Intake Total 120 / 120
Balance 120 / 120
[2024-01-07] MEDS: RETACRIT 4000 UNITS IV (08:56)
[2024-01-07 10:12] LABS: Glucose - Point of Care 97 mg/dl (70-99)
--- NOTE | 2024-01-07 12:43 | W.PN.NEPH.HD ---
Assessment
-
- refused to complete 3.5 hour treatment
- blood pressures stable
- otherwise feeling well
Progress Note - Hemodialysis
-
Date of Service: January 07, 2024
Duration: 3 hours
Potassium Bath: 3
Calcium Bath: 2.5
Opti-Dialyzer: 160
Ultrafiltration: Other
Blood Flow: 400
Dialysate Flow: 600
EPO: 4K
--- NOTE | 2024-01-07 13:08 | W.PN.CARDCBS ---
Today's Communication / Plan
-
No further chest pain
Continue antianginal meds as well as Plavix and statin
Tentative plan for left heart cath tomorrow
Impression / Plan
-
PCP: Dr. Tamez
Cardiology: Dr. Mak
Impression:
Presented with chest pain 12/16/23
HTN urgency
Elevated Troponin
Recent admission for NSTEMI, RCA PCI and vomiting 11/26/23 until 12/02/23
CAD
s/p LCX JOSE & PDA PTCA 2007
s/p CABG x3 GALVEZ to LAD, SVG sequential to OM-2 and OM-3 05/19/17
s/p NSTEMI and 2.75 mm Xience to mid RCA 11/26/2023
Sinus bradycardia/right bundle branch block
Paroxysmal Afib
Chronic Eliquis OAC
Chronic amiodarone
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
Linq monitor, no longer functional since 2019
HTN
Hyperlipidemia
ESRD on HD with LUE fistula
stenting of left upper extremity brachiocephalic fistula January 2022
h/o bilateral carotid disease
h/o medical noncompliance
h/o thrombocytopenia
Echo 09/2020:�normal lv size and function, no regional wall abnormalities, EF 55-60%, mild lvh, severely dilated left atrium, mild mr, mild tr, estimated PAP 34-39
Echo 11/13/2023:�EF 60-65%, mild cLVH, mild LAE.
Echo 12/02/23: EF 60-65%, no WMA, mild conc LVH
[facility] this morning with chest pain and cardiology has been consulted. Patient says that he missed his usual HD appointment on Friday due to snow, but he made up for it with an unscheduled HD session yesterday, Friday. Patient says
that he is scheduled again on Friday. Patient only has HD on Tuesdays and Saturdays which is not a standard HD schedule. Patient says that he had a normal HD sessions Friday. He went to bed last night feeling fine, but awoke around 0300 this AM
with chest pain. Chest pain has been constant. He was given Plavix 75 mg and aspirin 325 mg and he says that his pain is a little bit better, but still has some pressure. He has occasional SOB, but no KEYES. No palpitations. Chest pain feels identical
to his PR pain. Initial Troponin was 0.032 then 0.035 then 0.031. Patient was also noted to be HTN at 184/66 and he says that sometimes it is higher at HD. Patient was seen in the ER for chest pain 12/16/23 and he had amlodipine 5 mg daily was added
at that time.
Plan:
-Presenting with chest pain in the setting of recent PCI
-ECG reviewed by me with cRBBB and no acute ischemic changes.
-Troponin was 0.032 then 0.035 then 0.031. Will manage as a nonischemic myocardial injury Troponin elevation for now pending cath results.
-Tentative plan for LHC in AM
-Cont Toprol XL and amlodipine as anti-anginals
-Cont Plavix, Eliquis on hold for possible LHC
-Continue outpatient dose of Lipitor 80 mg daily.
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
Subjective
Date of Service: January 07, 2024
NAOE. Resting comfortably, receiving HD. No further chest pain or pressure.
Objective
Labs:
01/07/24 04:33
01/07/24 04:33
Labs
Hgb 9.0 g/dL (13.0-18.0) L 01/07/24 04:33
Hct 25.9 % (39.0-52.0) L 01/07/24 04:33
Plt Count 131 10^3/uL (130-400) 01/07/24 04:33
Sodium 137 mmol/L (135-145) 01/07/24 04:33
Potassium 4.0 mmol/L (3.5-5.1) 01/07/24 04:33
BUN 64 mg/dl (9-20) H 01/07/24 04:33
Creatinine 7.2 mg/dL (0.7-1.3) H* 01/07/24 04:33
Glucose 110 mg/dl (70-99) H 01/07/24 04:33
Troponins
01/06/24 01/06/24 01/06/24
04:26 06:58 08:54
Troponin I 0.032 0.035 H* 0.031
Vital Signs and I&O:
Vital Signs
Temp Pulse Resp BP Pulse Ox
97.2 F 82 14 147/67 98
01/07/24 11:19 01/07/24 11:19 01/07/24 11:19 01/07/24 11:19 01/07/24 11:19
Vital Signs
Temp Pulse Resp BP Pulse Ox
97.2 F 82 14 147/67 98
01/07/24 11:19 01/07/24 11:19 01/07/24 11:19 01/07/24 11:19 01/07/24 11:19
Intake & Output
01/05/24 01/06/24 01/07/24 01/08/24
06:59 06:59 06:59 06:59
Intake Total 120 / 120
Balance 120 / 120
Physical Exam
Physical Exam
Gen: NAD, AA
HEENT: NC/AT, sclera anicteric
Neck: No JVD
CV: RRR, NL s1/s2
Lungs: CTAB
Abd: S/ND
Ext: No LE edema
Skin: Warm, dry
Neuro: Non-focal
[2024-01-07] MEDS: TOPROL XL 25 MG PO (13:17)
--- NOTE | 2024-01-07 13:53 | PN.CDI ---
Addendum entered and electronically signed by Katalina Epstein MD 01/07/24 14:26:
Stable angina
Original Note:
CDI
- -
CDI:
Physician Documentation Request
Admit Date: 01/06/24 12:48
Dear Doctor Tete,
Clinical Indicators:
Patient admitted with chest pain. PMH includes recent MO with RCA PCI.
01/06 Cardiology Consult,'He went to bed last night feeling fine, but awoke around 0300 this AM with chest pain. Chest pain has been constant.'
01/07 PN, 'Angina No recurrent chest pain over night'
Please clarify the type of angina:
Unstable angina
Stable angina
Other
Use of terms such as suspected, likely, concern for, or probable (associated with a specific diagnosis that is being evaluated, monitored, or treated as if it exists) are acceptable and can be coded in the inpatient setting, when documented at the
time of discharge.
Thank you,
AFTAB Canseco RN
CDI Specialist
available via tiger text
Please use your independent medical judgment in providing your response.
--- NOTE | 2024-01-07 14:36 | CM ---
Initial assessment completed with patient who lives alone in a 2 story home with B/B on 2nd and 1/2 bath on 1st, no steps to enter. He is independent in ADL's. Support system is 2 daughters, one of which lives in the area. Patient has a RW and cane
in the home. No services. Pharmacy is [facility] in [place] and PCP is Dr. Jose Tamez. Anticipate home with no needs.
[2024-01-07] MEDS: LASIX 80 MG PO (17:00)
[2024-01-07] MEDS: LIPITOR 80 MG PO (21:46)
[2024-01-07] MEDS: RESTORIL 15 MG PO (21:46)
[2024-01-08] VITALS (17 sets, daily range): BP systolic 133–160; BP diastolic 56–71; BMI 25.8
[2024-01-08] MEDS: NORVASC 5 MG PO (07:27)
[2024-01-08] MEDS: TOPROL XL 25 MG PO (07:28)
[2024-01-08] MEDS: PROTONIX 40 MG PO (07:28)
[2024-01-08] MEDS: PLAVIX 75 MG PO (07:28)
[2024-01-08] MEDS: LOW STRENGTH ASPIRIN 81 MG PO (07:28)
[2024-01-08] MEDS: LASIX PO (08:10)
[2024-01-08] MEDS: FLOMAX PO (08:10)
--- NOTE | 2024-01-08 08:28 | W.PN.HOSP.TC ---
Today's Communication/Plan
-
.
Assessment / Plan
Assessment / Plan
83 male presented with chest pain, heaviness like on chest that last for two hours. No sob. He reported that pain was similar when he had the heart attack in 11/2023. No fever. No cough. troponin at 0.035 which is around his baseline. EKG is
reviewed.
Physical Exam
General: Other (no acute distress, conversant)
HEENT: Moist mucous membranes and PERRLA
Respiratory: Clear; No Wheezes, Rales or Rhonchi
Cardiac: S1/S2 and Regular Rhythm; No Murmur
GI: Soft, Non Distended, Normal Bowel Sounds.
Musculoskeletal: No Clubbing, No Cyanosis and No Edema
Neuro: AO x 3, followed commands.
Psych: Calm; No agitation.
#Stable Angina
No recurrent chest pain over night
Plan for cath today, he is NPO
Hx of CAD/ R/o NSTEMI/ recent stent on RCA
-Troponin 0.035 then 0.031, around his baseline
-Chest x-ray with no impression of acute cardiopulmonary process
-EKG with normal sinus rhythm with right bundle branch block
-holding Eliquis
-received asa and Plavix in ER
-asa, Plavix continued
- Appreciate cardiology input
#ESRD on HD -on dialysis� fri, , Friday
hx of non compliance with hD
-nephrology consulted
# Anemia of chronic disease
-Hemoglobin stable at 9.4
-No active bleeding
-Continue to monitor
#Paroxysmal atrial fibrillation- in SR
-Metoprolol continued
-Hold Eliquis
# Essential hypertension
-Norvasc continued
-furosemide continued
-losartan continued
#GERD
-PPI continued
#BPH
-Flomax continued
#anxiety
-lorazepam tid
Hyperlipidemia - cw statins
DVT prophylaxis
scd
#CODE status
-DNR
Total time spent to see the patient, examine the patient on the floor, review data and lab results, discuss treatment plan with patient, daughter, nursing staff around 55 minutes
Anticipated Discharge: 24 - 48 hours
Subjective/Interval History
-
Date of Service: January 08, 2024
No chest pain
No sob
No abd pain
Objective Data
-
Vital Signs:
Vital Signs
Temp Pulse Resp BP Pulse Ox
97.6 F 73 14 138/66 98
01/08/24 07:45 01/08/24 07:45 01/08/24 07:45 01/08/24 07:45 01/08/24 07:45
I&O
01/07/24 01/08/24 01/09/24
06:59 06:59 06:59
Intake Total 120 / 120 1300 / 1300
Output Total 50 / 50
Balance 120 / 120 1250 / 1250
--- NOTE | 2024-01-08 09:00 | PTCARENOTE ---
Received pt from slab inspector with cath RN at bedside. VSS, dressing to the right femoral artery dry and intact, vascular check and VS stable. Pt resting comfortably at this time, call lnin within reach.
--- NOTE | 2024-01-08 09:43 | ITS.CL.CATH ---
Oral Communication Instructor - Catheterization
Cardiac Catheterization
Procedure Report:
LEFT HEART CATHETERIZATION
Date of Procedure: January 08, 2024
Referring: Dr. Ed Mak
PROCEDURES:
1. Left heart catheterization with coronary angiography
2. Selective saphenous vein and CORRINA angiography
INDICATION: This is an 83-year-old gentleman with a past medical history notable for end-stage renal disease on hemodialysis twice weekly and left upper extremity AV fistula. He has a history of paroxysmal atrial fibrillation and is chronically
maintained on oral apixaban, coronary artery disease with history of coronary artery bypass surgery in 2017 with a GALVEZ-LAD, SVG-OM1 and OM 2. He is diabetic, hypertensive, and hyperlipidemic. He presented to [facility] emergency
department on 11/26/2023 with chest discomfort and was referred for coronary angiography. He was found to have a high-grade mid RCA stenosis which underwent successful angioplasty and stenting with placement of a 2.75 x 28 mm Xience suha point stent
that was postdilated with a 3 mm noncompliant balloon. Since this time he has been back to the emergency department with complaints of vague chest discomfort. He was very hypertensive when he was admitted to [facility] and his troponin
peaked at 0.035. He is now referred for coronary angiography.
ACCESS: Right common femoral artery, 6 Singaporean sheath. The pulse in the right femoral artery was much better than that noted on the left. The patient did have an Angio-Seal on the right over a month ago.
HEMODYNAMICS : (mmHg)
AO (s/d) : 160/55
LV (s/d) : 156/9
LVEDP : 13
CORONARY ANGIOGRAPHY
Dominance: Right
LEFT MAIN: Calcified 80% distal left main stenosis involving proximal LAD and proximal circumflex
LEFT ANTERIOR DESCENDING: The LAD arises normally from the left main and runs in the anterior interventricular groove. There is 60% stenosis in the proximal LAD before the takeoff of a large first septal ios developer and small caliber first diagonal
branch. The mid LAD beyond the diagonal branch has diffuse 70% stenosis and supplies a small caliber second diagonal branch. The LAD beyond the second diagonal branch demonstrates competitive flow from a widely patent CORRINA graft
CIRCUMFLEX: The circumflex is heavily calcified and diffusely diseased in its proximal to midportion supplying 2 very small obtuse marginal branches. The saphenous vein graft to the second and third obtuse marginal branch is widely patent as
described below.
RIGHT CORONARY ARTERY: The right coronary artery has a 50% proximal stenosis. There is no pressure dampening with engagement of a 6 Singaporean diagnostic catheter. The stent in the mid right coronary artery is widely patent. The distal RCA has 30%
stenosis. The PDA is 100% occluded at its origin. The posterolateral branch has moderate diffuse plaque but no focal obstructive stenosis
GRAFT ANGIOGRAPHY:
1. SVG-OM2-OM 3: Widely patent with antegrade and retrograde filling. Both obtuse marginal branches are small
2. GALVEZ-LAD: The GALVEZ graft to the LAD is widely patent with antegrade and retrograde filling of the LAD
LEFT VENTRICULOGRAPHY: Not done
RADIATION SUMMARY: Fluoro Time (min): 3, Dose (mGy): 310, DAP (Gy.cm2) : 25.9
Closure Device: None
CONCLUSION
1. Patent mid RCA stent with otherwise stable coronary anatomy. Patent sequential SVG-OM2-OM3 and GALVEZ-LAD
Copy to: Dr. Ed Mak
[2024-01-08 10:22] LABS: Hematocrit 27.8 % (39.0-52.0); Hemoglobin 9.8 g/dL (13.0-18.0); Mean Corp Hgb Conc. 35.3 g/dL (33.0-37.0); Mean Corpuscular Hgb 31.6 pg (27.0-31.0); Mean Corpuscular Volume 89.7 fL (80.0-94.0); Mean Platelet Volume 11.1 fL (7.4-10.4); Platelet Count 139 10^3/uL (130-400); Red Cell Dist. Width 14.5 % (11.5-14.5); White Blood Cell Count 4.4 10^3/uL (4.8-10.8)
[2024-01-08 10:38] LABS: APTT 33.4 Sec (23.4-35.0)
--- NOTE | 2024-01-08 11:52 | W.PN.NEPH.PH ---
Today's Communication / Plan
-
- plan for HD on Friday if patient amenable
Assessment/Plan
-
Assessment:
Chest pain
Status post RCA stent on 11/26/23
[facility]RD () [facility] [place]
Diarrhea chronic
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
Hypertension
Atrial fibrillation
BPH
Anemia of CKD
CAD/CABG 2016
Cerebrovascular disease
TIA 2002
History ESBL Klebsiella pneumoniae UTI
Gout
Medical noncompliance (allows only two 3-hour HD treatments weekly)
Plan:
A/w
Patient underwent HD yesterday (01/07) and informed patient that he will be due Friday
He was very unhappy and is currently refusing HD on Friday, I am hopeful we will be able to convince him otherwise.
Underwent cardiac cath today - RCA stent patent
Last week he only had HD once on Friday , only does HD twice weekly
We reviewed about imp of avoiding underdialysis with few and shorter HD session of his choice
cont home meds
d/w pt
-
-
Date of Service: January 08, 2024
CC / HPI / ROS
-
Chief Complaint:
ESRD on HD
History of Present Illness:
chest pain in the setting of recent PCI (resolved)
HD TS as patient preference
Review of Systems:
no complaints
Labs
-
Labs:
WBC 4.4 10^3/uL (4.8-10.8) L 01/08/24 10:07
RBC 3.10 10^6/uL (4.70-6.10) L 01/08/24 10:07
Hgb 9.8 g/dL (13.0-18.0) L 01/08/24 10:07
Hct 27.8 % (39.0-52.0) L 01/08/24 10:07
Plt Count 139 10^3/uL (130-400) 01/08/24 10:07
Sodium 137 mmol/L (135-145) 01/07/24 04:33
Potassium 4.0 mmol/L (3.5-5.1) 01/07/24 04:33
Chloride 100 mmol/L (98-107) 01/07/24 04:33
Carbon Dioxide 27 mmol/L (22-30) 01/07/24 04:33
BUN 64 mg/dl (9-20) H 01/07/24 04:33
Creatinine 7.2 mg/dL (0.7-1.3) H* 01/07/24 04:33
eGFR 6.95 01/07/24 04:33
Glucose 110 mg/dl (70-99) H 01/07/24 04:33
Calcium 7.7 mg/dl (8.4-10.2) L 01/07/24 04:33
Albumin 3.9 g/dl (3.5-5.0) 01/06/24 04:26
Physical Exam
-
Vital Signs:
Vital Signs
Temp Pulse Resp BP Pulse Ox
97.7 F 61 16 145/57 99
01/08/24 11:00 01/08/24 11:00 01/08/24 11:00 01/08/24 11:00 01/08/24 11:00
Cardiovascular:: Regular rate and rhythm
Respiratory:: Bilateral: CTA
Lung Excursion:: Normal
Abdomen:: Nontender and Soft
Bowel Sounds:: Normal
Extremity Edema:: None: Bilateral:
Escobar Catheter: No
--- NOTE | 2024-01-08 14:10 | W.DCSUMMARY ---
Discharge Summary
Discharge Data
Date of Admission: 01/06/24
Date of Discharge: 01/09/24
-
Pending Results: No
Hospital Course
83 years old male presented with chest pain. He had mild elevation of troponin. His chest pain lasted for a few hours and subsided. He was found to have hypertensive emergency. Patient had history of recent admission for non-ST elevation
myocardial infarction with angioplasty of right coronary artery. Patient was evaluated by car stereo installer. He underwent left heart catheterization with reassuring finding of patent recent stent. His chest discomfort felt to be reflection of angina
secondary to uncontrolled hypertension and elevated Volume. Patient was advised to comply with hemodialysis schedule. Patient reported feeling unwell for more than the day after each dialysis. He reported weakness and dizziness upon standing
following each hemodialysis. Patient was evaluated by fire prevention engineer. He had hemodialysis with no complication. No reported postdialysis hypotension. He remained hemodynamically stable. Patient was discharged in a stable condition.
Discharge Plan
-
Patient Disposition: Home with Home Care
Discharge Diagnosis/Procedures: Cardiac catheterization.
You were seen by car stereo installer, metoprolol was stopped and you were started on Coreg.
Diet: Low Cholesterol
Stand Alone Forms: DC Instructions- Cath/EP Lab
Referrals:
Jose Tamez MD [Family Provider] -
Ed Mak MD [Active] - 04/30/24 8:00 am
Prescriptions:
New
nitroglycerin 0.4 mg tablet, sublingual
0.4 mg sublingual Q5-15M PRN (Reason: chest pain) Qty: 10 0RF
carvedilol [Coreg] 6.25 mg tablet
6.25 mg PO BID Qty: 90 3RF
ondansetron HCl 4 mg tablet
4 mg PO DAILY PRN (Reason: nausea after HD) 4 Days Qty: 10 0RF
Continued
Eliquis 2.5 MG tablet
2.5 mg PO BID Qty: 60 0RF
atorvastatin 80 MG tablet
80 mg PO HS
tamsulosin 0.4 MG capsule
0.4 mg PO BID
clopidogrel 75 mg Tablet
75 mg PO DAILY Qty: 30 0RF
pantoprazole 40 mg Tablet,Delayed Release (Dr/Ec)
40 mg PO DAILY Qty: 30 0RF
amlodipine 5 mg tablet
5 mg PO DAILY Qty: 30 11RF
melatonin 3 mg Tablet
3 mg PO HS PRN (Reason: sleep)
lorazepam 0.5 mg Tablet
0.5 mg PO TID PRN (Reason: anxiety)
Patient Comments:
01/06/2024, pt. filled this med. on 12/11/2023 for 60 tablets according to PDMP.
temazepam 15 mg Capsule
15 mg PO DAILY
Patient Comments:
01/06/2024, pt. filled this med. on 12/12/2023 for 90 capsules according to PDMP.
furosemide 80 mg Tablet
80 mg PO BID@0800,1600
losartan 25 mg Tablet
25 mg PO DAILY
cyanocobalamin (vitamin B-12)
1 tab PO TUSA@0800
Patient Comments:
01/06/2024, taken on dialysis days.
Discontinued
metoprolol succinate 25 mg tablet extended release 24 hr
25 mg PO DAILY
Discharge Orders:
Discharge Patient (As Directed); Ordered 01/09/24
Ordered By: Katalina Epstein
Discharge Date and Time
Discharge Date/Time: 01/09/24 14:55
--- NOTE | 2024-01-08 14:56 | CM ---
PT has recommended HH services for patient at the time of discharge. MD requesting VN. Met with patient and discussed HH services. He has had [facility] in the past and would like a referral be sent to them. Referral will be sent to - for VN,
PT/OT services. Patient in agreement.
[2024-01-08] MEDS: LASIX 80 MG PO (16:16)
[2024-01-08] MEDS: HEPARIN 25000 UNITS/250 ML IV (16:16)
[2024-01-08] MEDS: COREG 6.25 MG PO (19:49)
[2024-01-08] MEDS: FLOMAX 0.400000000000000022 MG PO (19:49)
[2024-01-08] MEDS: RESTORIL 15 MG PO (21:34)
[2024-01-08] MEDS: LIPITOR 80 MG PO (21:34)
[2024-01-08 23:16] LABS: APTT 39.1 Sec (23.4-35.0)
[2024-01-09 03:53] VITALS: BP 137/71
[2024-01-09 05:39] VITALS: BMI 26.2
[2024-01-09 06:15] LABS: APTT 80.3 Sec (23.4-35.0)
[2024-01-09 07:05] VITALS: BP 160/69
[2024-01-09] MEDS: LASIX 80 MG PO (08:11)
[2024-01-09] MEDS: COREG 6.25 MG PO (08:12)
[2024-01-09] MEDS: PLAVIX 75 MG PO (08:12)
[2024-01-09] MEDS: FLOMAX 0.400000000000000022 MG PO (08:12)
[2024-01-09] MEDS: PROTONIX 40 MG PO (08:12)
[2024-01-09] MEDS: LOW STRENGTH ASPIRIN 81 MG PO (08:12)
[2024-01-09] MEDS: NORVASC 5 MG PO (08:13)
--- NOTE | 2024-01-09 10:59 | PTCARENOTE ---
As per ENVIRONMENTAL SERVICES ASSOCIATE Isis Segura continue heparin as ordered, until Eliquis is resumed by cardio. plan of care ongoing. No s/s of distress noted.
[2024-01-09 11:00] VITALS: BP 144/77
--- NOTE | 2024-01-09 11:15 | W.PN.HOSP.TC ---
Today's Communication/Plan
-
.
Assessment / Plan
Assessment / Plan
83 male presented with chest pain, heaviness like on chest that last for two hours. No sob. He reported that pain was similar when he had the heart attack in 11/2023. No fever. No cough. troponin at 0.035 which is around his baseline. EKG is
reviewed.
Physical Exam
General: Other (no acute distress, conversant)
HEENT: Moist mucous membranes and PERRLA
Respiratory: Clear; No Wheezes, Rales or Rhonchi
Cardiac: S1/S2 and Regular Rhythm; No Murmur
GI: Soft, Non Distended, Normal Bowel Sounds.
Musculoskeletal: No Clubbing, No Cyanosis and No Edema
Neuro: AO x 3, followed commands.
Psych: Calm; No agitation.
#Stable Angina
No recurrent chest pain over night
cath no blockage to stent, patent stent
Hx of CAD/ R/o NSTEMI/ recent stent on RCA
-Troponin 0.035 then 0.031, around his baseline
-Chest x-ray with no impression of acute cardiopulmonary process
-EKG with normal sinus rhythm with right bundle branch block
-holding Eliquis
-received asa and Plavix in ER
-asa, Plavix continued
- Appreciate cardiology input
#ESRD on HD -on dialysis� fri, , Friday
hx of non compliance with hD
-nephrology consulted
# Anemia of chronic disease
-Hemoglobin stable at 9.4
-No active bleeding
-Continue to monitor
#Paroxysmal atrial fibrillation- in SR
-Metoprolol continued
-Hold Eliquis, started on IV heparin gtt post cath
# Essential hypertension
-Norvasc continued
-furosemide continued
-losartan continued
#GERD
-PPI continued
#BPH
-Flomax continued
#anxiety
-lorazepam tid
Hyperlipidemia - cw statins
DVT prophylaxis
scd
#CODE status
-DNR
Total discharge time spent to see the patient, examine the patient on the floor, review data and lab results, discuss discharge plan with patient, daughter, nursing staff around 67 minutes
Anticipated Discharge: Today
Subjective/Interval History
-
Date of Service: January 09, 2024
No events over night
Objective Data
-
Labs:
Laboratory Results
01/08/24 01/09/24 01/09/24
22:58 05:28 12:25
APTT 39.1 H 80.3 H Pending
Vital Signs:
Vital Signs
Temp Pulse Resp BP Pulse Ox
97.9 F 74 16 160/69 95
01/09/24 07:05 01/09/24 08:13 01/09/24 07:05 01/09/24 08:13 01/09/24 08:00
I&O
01/08/24 01/09/24 01/10/24
06:59 06:59 06:59
Intake Total 1300 / 1300 1140 / 1140
Output Total 50 / 50
Balance 1250 / 1250 1140 / 1140
[2024-01-09 11:24] VITALS: BP 156/64; PULSE 62; O2SAT 99
--- NOTE | 2024-01-09 12:23 | W.PN.CARDCBS ---
Today's Communication / Plan
-
Okay for discharge, see recommendations below
Impression / Plan
-
PCP: Dr. Tamez
Cardiology: Dr. Mak
Impression:
Presented with chest pain 12/16/23
HTN urgency
Elevated Troponin
Recent admission for NSTEMI, RCA PCI and vomiting 11/26/23 until 12/02/23
CAD
s/p LCX JOSE & PDA PTCA 2007
s/p CABG x3 GALVEZ to LAD, SVG sequential to OM-2 and OM-3 05/19/17
s/p NSTEMI and 2.75 mm Xience to mid RCA 11/26/2023
Sinus bradycardia/right bundle branch block
Paroxysmal Afib
Chronic Eliquis OAC
Chronic amiodarone
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
Linq monitor, no longer functional since 2019
HTN
Hyperlipidemia
ESRD on HD with LUE fistula
stenting of left upper extremity brachiocephalic fistula January 2022
h/o bilateral carotid disease
h/o medical noncompliance
h/o thrombocytopenia
Echo 09/2020:�normal lv size and function, no regional wall abnormalities, EF 55-60%, mild lvh, severely dilated left atrium, mild mr, mild tr, estimated PAP 34-39
Echo 11/13/2023:�EF 60-65%, mild cLVH, mild LAE.
Echo 12/02/23: EF 60-65%, no WMA, mild conc LVH
Plan:
From a cardiac standpoint, he seems stable.
Cardiac catheterization yesterday was reassuring.
Given that he has an occluded PDA intermittent angina is not necessarily surprising
Given his coronary anatomy, it may be that symptoms of chest discomfort, with detectable troponin are a reflection of hypertension and elevated volume, largely related to the fact that the patient does not want his antihypertensive meds increased
and will only undergo dialysis twice a week rather than 3 times a week as nephrology has requested.
I encouraged him to be compliant with dialysis and to permit nephrology to uptitrate his antihypertensive medications. I am skeptical that he will comply.
He can be discharged from a cardiac standpoint.
We will arrange for outpatient follow-up.
Recommended cardiac medications at discharge:
Amlodipine 5 mg a day
Furosemide per nephrology
Atorvastatin 80 mg a day
Clopidogrel 75 mg daily
Aspirin 81 mg daily
Carvedilol 6.25 mg twice daily
Eliquis 2.5 mg twice daily
Losartan per nephrology
Sublingual nitro 0.4 mg as needed for chest discomfort
Would not object to up titration of amlodipine or carvedilol if nephrology desires and patient is willing
Patient came to [facility] on the day of admission with chest pain and cardiology has been consulted. Patient says that he missed his usual HD appointment on Friday due to snow, but he made up for it with an unscheduled HD session yesterday, Friday.
Patient says that he is scheduled again on Friday. Patient only has HD on Tuesdays and Saturdays which is not a standard HD schedule. Patient says that he had a normal HD sessions Friday. He went to bed last night feeling fine, but awoke around
0300 this AM with chest pain. Chest pain has been constant. He was given Plavix 75 mg and aspirin 325 mg and he says that his pain is a little bit better, but still has some pressure. He has occasional SOB, but no KEYES. No palpitations. Chest pain
feels identical to his PR pain. Initial Troponin was 0.032 then 0.035 then 0.031. Patient was also noted to be HTN at 184/66 and he says that sometimes it is higher at HD. Patient was seen in the ER for chest pain 12/16/23 and he had amlodipine 5 mg
daily was added at that time.
Progress Note - Livestock Counter
Subjective
Date of Service: January 09, 2024:
recently . Not consistent in hemodialysis.
Allergies none
Outpatient medications: Amlodipine 5 mg a day, atorvastatin 80 at bedtime, carvedilol 6.25 twice daily, clopidogrel 75 mg a day, Eliquis 2.5 mg twice daily, furosemide 80 mg p.o. twice daily, losartan 25 mg a day, Protonix,
Current medications: Amlodipine 5 mg a day, furosemide 80 mg twice daily, atorvastatin 80 mg a day, Plavix 75 mg a day, aspirin 81 mg a day, carvedilol 6.25 twice daily
PMH/PSH/SH/FH: Reviewed
Review of systems negative except as above
No labs today
Cardiac catheterization 01/08/2024: GALVEZ to LAD patent, sequential saphenous vein graft patent, 80% distal left main, 60% proximal LAD, 70% mid LAD, calcified diffusely diseased circumflex, RCA with 50% proximal stenosis, 100% PDA, Xience stent to
mid RCA patent
Objective
Labs:
01/08/24 10:07
01/07/24 04:33
Labs
Hgb 9.8 g/dL (13.0-18.0) L 01/08/24 10:07
Hct 27.8 % (39.0-52.0) L 01/08/24 10:07
Plt Count 139 10^3/uL (130-400) 01/08/24 10:07
APTT 80.3 Sec (23.4-35.0) H 01/09/24 05:28
Sodium 137 mmol/L (135-145) 01/07/24 04:33
Potassium 4.0 mmol/L (3.5-5.1) 01/07/24 04:33
BUN 64 mg/dl (9-20) H 01/07/24 04:33
Creatinine 7.2 mg/dL (0.7-1.3) H* 01/07/24 04:33
Glucose 110 mg/dl (70-99) H 01/07/24 04:33
Vital Signs and I&O:
Vital Signs
Temp Pulse Resp BP Pulse Ox
36.7 C 90 16 144/77 95
01/09/24 11:00 01/09/24 11:00 01/09/24 11:00 01/09/24 11:00 01/09/24 11:00
Vital Signs
Temp Pulse Resp BP Pulse Ox
36.7 C 90 16 144/77 95
01/09/24 11:00 01/09/24 11:00 01/09/24 11:00 01/09/24 11:00 01/09/24 11:00
Intake & Output
01/07/24 01/08/24 01/09/24 01/10/24
07:59 07:59 07:59 07:59
Intake Total 120 / 120 1300 / 1300 1140 / 1140
Output Total 50 / 50
Balance 120 / 120 1250 / 1250 1140 / 1140
Physical Exam
Physical Exam
144/77, pulse 90, 70s
No acute distress
Head neck exam unremarkable
Lungs are clear
Regular rate and rhythm
Abdomen benign
Extremities without clubbing cyanosis edema
Neuro nonfocal
--- NOTE | 2024-01-09 14:20 | CM ---
Patient has been medically cleared for discharge to home with [facility] services. Daughter will transport home.
--- NOTE | 2024-01-09 14:31 | W.PN.NEPH.PH ---
Today's Communication / Plan
-
ok for d/c
Assessment/Plan
-
Assessment:
Chest pain
Status post RCA stent on 11/26/23
ESRD () [facility] in [place]
Diarrhea chronic
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
Hypertension
Atrial fibrillation
BPH
Anemia of CKD
CAD/CABG 2016
Cerebrovascular disease
TIA 2002
History ESBL Klebsiella pneumoniae UTI
Gout
Medical noncompliance (allows only two 3-hour HD treatments weekly)
Plan:
A/w CP -s/p LHC on 01/08 patent RCA stent and stable CAD
d/w cards suspect underdialysis could be playing a role
reviewed with pt in detail and requested him to do 3xweek HD which will allow better BP control too
If he is d/c today, should return HD tomorrow at [facility]-hope that he wont miss it
cont home meds
ok for d/c
-
-
Date of Service: January 09, 2024
CC / HPI / ROS
-
Chief Complaint:
ESRD on HD
History of Present Illness:
no fever, s/p LHC reviewed on 01/08
HD TS as patient preference, s/p HD Friday
hb stable at 9.8
Review of Systems:
no complaints
CP free , no sob
no n/v
Labs
-
Labs:
WBC 4.4 10^3/uL (4.8-10.8) L 01/08/24 10:07
RBC 3.10 10^6/uL (4.70-6.10) L 01/08/24 10:07
Hgb 9.8 g/dL (13.0-18.0) L 01/08/24 10:07
Hct 27.8 % (39.0-52.0) L 01/08/24 10:07
Plt Count 139 10^3/uL (130-400) 01/08/24 10:07
Sodium 137 mmol/L (135-145) 01/07/24 04:33
Potassium 4.0 mmol/L (3.5-5.1) 01/07/24 04:33
Chloride 100 mmol/L (98-107) 01/07/24 04:33
Carbon Dioxide 27 mmol/L (22-30) 01/07/24 04:33
BUN 64 mg/dl (9-20) H 01/07/24 04:33
Creatinine 7.2 mg/dL (0.7-1.3) H* 01/07/24 04:33
eGFR 6.95 01/07/24 04:33
Glucose 110 mg/dl (70-99) H 01/07/24 04:33
Calcium 7.7 mg/dl (8.4-10.2) L 01/07/24 04:33
Albumin 3.9 g/dl (3.5-5.0) 01/06/24 04:26
Physical Exam
-
Vital Signs:
Vital Signs
Temp Pulse Resp BP Pulse Ox
98.0 F 90 16 144/77 95
01/09/24 11:00 01/09/24 11:00 01/09/24 11:00 01/09/24 11:00 01/09/24 11:00
Cardiovascular:: Regular rate and rhythm
Respiratory:: Bilateral: CTA
Lung Excursion:: Normal
Abdomen:: Nontender and Soft
Extremity Edema:: None: Bilateral:
Escobar Catheter: No
== END 2024-01-09 14:55 | disposition home health service (06) | DRG 286 ==
LOC: 2 NORTH 12:48
PROVIDERS: Emergency Medicine; Internal Medicine Interventional Cardiology; Nurse Practitioner Adult Health; Registered Nurse; Student in an Organized Health Care Education/Training Program; ADMITTING PHYSICIAN Internal Medicine; CONSULT PHYSICIAN Internal Medicine; CONSULT PHYSICIAN Nuclear Medicine Nuclear Cardiology; EMERGENCY PHYSICIAN Emergency Medicine; FAMILY PHYSICIAN Family Medicine
PROC: 5A1D70Z Performance of Urinary Filtration, Intermittent, Less than 6 Hours Per Day (ICD-10-PCS; 2024-01-07)
PROC: 4A023N7 Measurement of Cardiac Sampling and Pressure, Left Heart, Percutaneous Approach (ICD-10-PCS; 2024-01-08)
PROC: B2111ZZ Fluoroscopy of Multiple Coronary Arteries using Low Osmolar Contrast (ICD-10-PCS; 2024-01-08)
PROC: B2131ZZ Fluoroscopy of Multiple Coronary Artery Bypass Grafts using Low Osmolar Contrast (ICD-10-PCS; 2024-01-08)
DX: I16.1 Hypertensive emergency (principal); N18.6 End stage renal disease; I5A Non-ischemic myocardial injury (non-traumatic); I25.118 Atherosclerotic heart disease of native coronary artery with other forms of angina pectoris; I12.0 Hypertensive chronic kidney disease with stage 5 chronic kidney disease or end stage renal disease; I45.10 Unspecified right bundle-branch block; E11.22 Type 2 diabetes mellitus with diabetic chronic kidney disease; E78.00 Pure hypercholesterolemia, unspecified; I48.0 Paroxysmal atrial fibrillation; M10.9 Gout, unspecified; D63.1 Anemia in chronic kidney disease; K21.9 Gastro-esophageal reflux disease without esophagitis; N40.0 Benign prostatic hyperplasia without lower urinary tract symptoms; F32.A Depression, unspecified; F41.9 Anxiety disorder, unspecified; Z86.73 Personal history of transient ischemic attack (TIA), and cerebral infarction without residual deficits; Z95.5 Presence of coronary angioplasty implant and graft; Z87.891 Personal history of nicotine dependence; Z79.01 Long term (current) use of anticoagulants; Z79.02 Long term (current) use of antithrombotics/antiplatelets; Z66 Do not resuscitate; Z95.1 Presence of aortocoronary bypass graft; Z99.2 Dependence on renal dialysis; Z86.718 Personal history of other venous thrombosis and embolism; Z87.440 Personal history of urinary (tract) infections; Z86.19 Personal history of other infectious and parasitic diseases; Z91.199 Patient's noncompliance with other medical treatment and regimen due to unspecified reason; I25.2 Old myocardial infarction; Z82.49 Family history of ischemic heart disease and other diseases of the circulatory system; Z63.4 Disappearance and death of family member
CPT/HCPCS: 71046; 80048; 80053; 82962; 83036; 84484; 85025; 85027; 85730; 87070; 93005; 93459; 97116; 97162; 97166; 99285; C1894; G0257; P9047; Q5106; Q9967

== ENCOUNTER 2024-01-26 23:26 | Inpatient (IN) | payer MEDICARE, SELFPAY ==
[2024-01-26 20:40] VITALS: BP 139/74
[2024-01-26 20:58] LABS: % Basophils 0.3 % (0-2); % Immature Granulocytes 11.3 % (0-0.5); % Monocytes 11.6 % (1.7-9.3); % Neutrophils 67.8 % (42.2-75.2); Absolute Eosinophils 0.1 10^3/uL (0-0.7); Absolute Immature Granulocytes 0.9 10^3/uL (0-0.05); Absolute Lymphocytes 0.6 10^3/uL (1.2-3.4); Absolute Monocytes 0.9 10^3/uL (0.1-0.6); Absolute Neutrophils 5.3 10^3/uL (1.4-6.5); Hematocrit 29.9 % (39.0-52.0); Hemoglobin 10.1 g/dL (13.0-18.0); Mean Corp Hgb Conc. 33.8 g/dL (33.0-37.0); Mean Corpuscular Hgb 32.1 pg (27.0-31.0); Mean Corpuscular Volume 94.9 fL (80.0-94.0); Mean Platelet Volume 10.3 fL (7.4-10.4); Nucleated Red Blood Cells % 0 % (-); Platelet Count 190 10^3/uL (130-400); Red Blood Cell Count 3.15 10^6/uL (4.70-6.10); Red Cell Dist. Width 16.9 % (11.5-14.5); White Blood Cell Count 7.9 10^3/uL (4.8-10.8)
[2024-01-26 21:10] LABS: INR 1.29; PT 15.9 Sec (11.4-14.6)
[2024-01-26 21:11] LABS: APTT 44.1 Sec (23.4-35.0)
[2024-01-26 21:17] LABS: ALT (SGPT) 13 U/L (0-50); AST (SGOT) 18 U/L (17-59); Albumin 4.3 g/dl (3.5-5.0); Alkaline Phosphatase 90 U/L (38-126); Blood Urea Nitrogen 65 mg/dl (9-20); Calcium 8.4 mg/dl (8.4-10.2); Carbon Dioxide 28 mmol/L (22-30); Chloride 95 mmol/L (98-107); Glucose 151 mg/dl (70-99); Potassium 4.2 mmol/L (3.5-5.1); Sodium 139 mmol/L (135-145); Total Bilirubin 1.2 mg/dl (0.2-1.3); Total Protein 6.7 g/dl (6.3-8.2); eGFR 5.53
--- NOTE | 2024-01-26 21:19 | ED.GENMED ---
History of Present Illness
General
Chief Complaint: Abdominal Symptoms
Source: patient
Exam Limitations: none
Time Seen by Provider: 01/26/24 20:45
Travel History
Have you had any contact with someone who has COVID-19?: No
Do you have any symptoms of coronavirus? Fever > 100 degrees, chills, cough, shortness of breath, sore throat, loss of taste or smell, muscle aches, or headache?: No
History of Present Illness
History of Present Illness:
This is 83 year old male that comes in with c/o dizziness and diarrhea. States that this started today. Yesterday he states he had chest pain and abd pain. States that he feels SOB, Nausea, abd cramping, headache and dizziness. States that he has
had diarrhea bout 10 times today. States that he is also nauseated. States that he does urinate daily. Denies any fever, chills, chest pain, vomiting, urinary burning.
Past History
Past History
ED Past Medical History: Arrthythmia (Atrial fib), CAD, CVA (Left sided weakness slight), HTN, Hypercholesterolemia, NIDDM, [place], Renal failure (Dialysis Friday and Friday) and Other (TIA 2003, Diverticulosis, Anemia)
ED Past Surgical History: Cardiac (Cardiac stents, LINK, CABG) and Other (Cataracts, Left arm fistula)
Social History
Tobacco: Former smoker
Alcohol: None
Personal:
Living: alone
Employment: Retired
Review of Systems
Review of Systems
All Other Systems: ROS reviewed and negative except as documented in HPI and ROS
Constitutional: Reports no symptoms; Denies fever or chills
EENT: Reports no symptoms
Respiratory: Reports trouble breathing; Denies cough
Cardiac: Reports chest pain
ABD/GI: Reports nausea and diarrhea; Denies abdominal pain or vomiting
: Reports no symptoms
Musculoskeletal: Reports no symptoms
Skin: Reports no symptoms
Neurological: Reports dizzy and headache
Psychiatric: Reports no symptoms
Phy Exam
General Physical Exam
General Presentation: mild distress
General age: appears stated age
General Skin: warm and dry
General Habitus: elderly
General Mental: alert
General Hydration: appears well hydrated
ENT Exam
ENT Exam: TM's normal, pharynx normal and neck supple
Eye Exam
Eye Exam: EOMI
Cardiovascular Exam
Cardiovascular Exam: regular rate/rhythm, no edema and normal peripheral pulses
Pulmonary Exam
Pulmonary Exam: no respiratory distress, no rales, chest non tender, no crackles, no rhonchi, no cough and other (Exp wheezing throughout)
Gastrointestinal Exam
Gastrointestinal Exam: soft, no organomegaly, no pulsatile mass, non distended, tender (Left sided abd tenderness. ) and other (Hypoactive bowel sounds)
Musculoskeletal Exam
Musculoskeletal Exam: full ROM and no edema
Skin Exam
Skin Exam: normal color, warm/dry, no rash and no petechia
Psychiatric Exam
Psychiatric Exam: normal mood/affect
Course
Orders/Labs/Results
Orders:
Orders
01/26/24 20:44
Electrocardiogram (*1) Urgent
Reason for Study: QTc Monitoring
EKG- Treatment ONCE
01/26/24 20:47
Complete Blood Count/With Diff Urgent
Comprehensive Metabolic Panel Urgent
Protime/PTT Urgent
01/26/24 21:19
0.9% Sodium Chloride 250 ml [Nss] 250 ml IV BOLUS
01/26/24 21:23
Ondansetron Injectable [Zofran] 4 mg IV NOW STA
01/26/24 21:24
Troponin I Urgent
Stool Culture Urgent
DREW Source: Feces/Stool
Specimen Description:
Date Specimen was Collected: 01/26/24
Time Specimen was Collected: 21:22
Stool For WBC Urgent
DREW Source: Feces/Stool
Specimen Description:
Date Specimen was Collected: 01/26/24
Time Specimen was Collected: 21:22
01/26/24 21:25
CT Abd/pelvis W Iv Cont Urgent
Comment:
Reason For Exam: left sided abd tenderness
01/26/24 21:28
Norovirus by PCR Urgent
DREW Source: Feces/Stool
Specimen Description:
Date Specimen was Collected: 01/26/24
Time Specimen was Collected: 21:21
STOOL [C difficile Antigen & Toxins] Urgent
DREW Source: Feces/Stool
Specimen Description:
Date Specimen was Collected: 01/26/24
Time Specimen was Collected: 21:21
Abnormal Lab Results
01/26/24
20:47
RBC 3.15 L 10^6/uL
(4.70-6.10)
Hgb 10.1 L g/dL
(13.0-18.0)
Hct 29.9 L %
(39.0-52.0)
MCV 94.9 H fL
(80.0-94.0)
MCH 32.1 H pg
(27.0-31.0)
RDW 16.9 H %
(11.5-14.5)
Abs Immat Gran (auto) 0.9 H 10^3/uL
(0-0.05)
Absolute Lymphs (auto) 0.6 L 10^3/uL
(1.2-3.4)
Absolute Monos (auto) 0.9 H 10^3/uL
(0.1-0.6)
Immature Gran % 11.3 H %
(0-0.5)
Lymphocytes % 8.0 L %
(20.5-51.1)
Monocytes % 11.6 H %
(1.7-9.3)
PT 15.9 H Sec
(11.4-14.6)
APTT 44.1 H Sec
(23.4-35.0)
Chloride 95 L mmol/L
(98-107)
BUN 65 H mg/dl
(9-20)
Creatinine 8.7 H* mg/dL
(0.7-1.3)
Glucose 151 H mg/dl
(70-99)
01/26/24 20:47
01/26/24 20:47
H/H low, Anemia, Chronic renal Failure, Glucose nonfasting, PT 15.9 with INR 1.29, PTT 44.1, Troponin 0.028,
Vital Signs
Initial and Last Documented VS:
Initial Vital Signs
Temp Pulse Resp BP Pulse Ox
97.7 F 81 24 139/74 100
01/26/24 20:40 01/26/24 20:40 01/26/24 20:40 01/26/24 20:40 01/26/24 20:40
Last Documented Vital Signs
Temp Pulse Resp BP Pulse Ox
97.7 F 81 24 139/74 95
01/26/24 20:40 01/26/24 20:40 01/26/24 20:40 01/26/24 20:40 01/26/24 22:22
MDM/Problems Addressed
Differential Diagnosis Includes:
GI viral syndrome. C-diff, Colitis,
MDM/Problems Addressed:
This is a 83 year old male that comes in with c/o abd pain, nausea and diarrhea. States that this started today and he has had diarrhea about 10 times. States that he has chest pain yesterday and is SOB.
Will check labs, Sent stool and given only NSS 250mg over 2 hours. Patient live alone and will most likely admit due to weakness. Daughter is aware.
Back into see patient. Explained that his CT shows Enteritis. Patient at this time is having diarrhea in the bed. Patient is very weak and will need dialysis tomorrow. Will admit.
Chronic conditions affecting care: Kidney disease
Acute Exacerbation and/or Progression of Chronic Illness: Kidney disease
*Radiology
Radiology exam reviewed: radiology read reviewed (CT-Questionable mild enteritis with diffuse slightly prominent small bowel loops. Chronic findings are otherwise unchanged from previous exam. )
*Pulse Oximetry
Patient hypoxic: no
*EKG
Interpreted by ED Provider?: Yes
Heart Rate: 82
Rate: normal
[place]: left axis deviation
Interval: normal interval
QRS Pattern: right bundle branch block
Ischemia: no ischemia
*Leaf Sucker Operator Interpretation
Rate: normal
Heart Rate: 83
Rhythm: sinus
*Critical Care Note
Total Time (30-74mins, 75-104mins- exclusive of procedures): Not Applicable
ED Attending Note
-
Portions of this chart may have been created with voice recognition software.� Occasional wrong word or��sound alike� substitutions may have occurred due to the inherent limitations of voice recognition software.
Discharge Plan
Departure
Patient Disposition: Admit
Date of Disposition: 01/26/24
Time of Disposition: 22:41
Admit to: Med/Surg
Presentation/result/management discussed w/ accepting MD/DO: Hospitalist
Patient with high blood pressure during this ER visit?: Yes
Condition: Good
Covid-19: Not Applicable
Discharge Problem:
Weakness, Enteritis, Diarrhea
Prescriptions:
No Action
Eliquis 2.5 MG tablet
2.5 mg PO BID Qty: 60 0RF
atorvastatin 80 MG tablet
80 mg PO DAILY
tamsulosin 0.4 MG capsule
0.4 mg PO BID
clopidogrel 75 mg Tablet
75 mg PO DAILY Qty: 30 0RF
pantoprazole 40 mg Tablet,Delayed Release (Dr/Ec)
40 mg PO DAILY Qty: 30 0RF
amlodipine 5 mg tablet
5 mg PO DAILY Qty: 30 11RF
melatonin 3 mg Tablet
3 mg PO HS PRN (Reason: sleep)
lorazepam 0.5 mg Tablet
0.5 mg PO TID PRN (Reason: anxiety)
Patient Comments:
01/26/2024, pt. filled this med. on 12/11/2023 for 60 tablets according to PDMP.
temazepam 15 mg Capsule
15 mg PO HS
Patient Comments:
01/26/2024, pt. filled this med. on 12/12/2023 for 90 capsules according to PDMP.
furosemide 80 mg Tablet
80 mg PO BID
losartan 25 mg Tablet
25 mg PO DAILY
cyanocobalamin (vitamin B-12)
1 tab PO TUSA@0800
carvedilol [Coreg] 6.25 mg tablet
6.25 mg PO BID Qty: 90 3RF
acetaminophen [Tylenol] 325 mg Tablet
975 mg PO DAILYPRN PRN (Reason: mild pain)
loperamide [Imodium] 2 mg Capsule
4 mg PO Q2HPRN PRN (Reason: diarrhea)
Referrals:
Jose Tamez MD [Family Provider] -
Interventions
Interventions:
*Risk Screen - Suicide Last Done: 01/26/24 20:40
ED- Fall Risk Assessment Last Done: 01/26/24 22:20
HF-Gtcdhi-Luorwtcxea Assessment Last Done: 01/26/24 22:20
[2024-01-26] MEDS: NSS 250 IV (21:32)
[2024-01-26] MEDS: ZOFRAN 4 MG IV (21:32)
[2024-01-26 21:59] LABS: Troponin I 0.028 ng/ml
[2024-01-26 22:32] VITALS: BP 145/77
--- NOTE | 2024-01-26 22:50 | HPS.HSE ---
Addendum entered and electronically signed by Clem Nance MD 01/26/24 23:36:
Patient seen and examined independently with CONTROLS TECHNICIAN.� 83-year-old male past medical history of ESRD on hemodialysis Friday and Friday, anemia, atrial fibrillation, CAD status post CABG, CVA, hypertension, hypercholesteremia, diabetes, presenting with
profuse diarrhea and abdominal pain since yesterday likely viral gastroenteritis.� CT scan shows mild enteritis.� N.p.o., IV fluids, Zofran, check stool studies and cdif.� Nephrology consulted for dialysis tomorrow.
Original Note:
Family Physician
-
Family Physician: Jose Tamez
Chief Complaint
-
diarrhea , nausea
History of Present Illness
83-year-old male complaining of abdominal cramping with watery diarrhea yellow in color since yesterday a.m. He reports he ate a breakfast sandwich he did in the microwave then 1 hour later started with abdominal cramping and watery diarrhea all
day yesterday and all day today. He reports feeling slightly dizzy. He also had fish sticks the night before for dinner. He reports he has been taking his 80 mg of furosemide twice daily while having diarrhea. He denies fever, chills, chest
pain, palpitations, shortness breath, cough, vomiting, recent sick contacts. He lives alone and has had no visitors in the last several weeks.
The patient has past medical history of recent NSTEMI 11/26/2023 requiring RCA stent with recurrent chest pain December 2023 and admission, paroxysmal A-fib, RBBB, Linq device, CVA 2011, 2016, HTN, HLD, ESRD dialysis Friday ,Friday,
diverticulosis, chronic anemia, former smoker, BPH, anxiety
Medical History
Past Medical History
Past Medical History: Reports Other
Additional Past Medical History:
Coronary artery disease
Nstemi 11/26/23
Hypertension
Hyperlipidemia
NIDDM
End-stage renal disease
TIA
Past Surgical History: Reports Other
Additional Past Surgical History:
CAD/NSTEMI/stent RCA 11/26/2023
s/p LCX JOSE & PDA PTCA 2007
s/p CABG x3 GALVEZ to LAD, SVG sequential to OM-2 and OM-3 05/19/17
s/p NSTEMI and 2.75 mm Xience to mid RCA 11/26/2023
CABG 2016
(LUE AV Fistula w/ stenting of left upper extremity brachiocephalic fistula January 2022)
Social History
Tobacco: Former Smoker
Alcohol: None
Drug: None
Personal: Single
Living: Alone
Family History
Family History: Not pertinent
Allergies / Home Medications
Allergies reflects when Allergies were last updated in [employer].
Home Medications with original date entered in [employer]
Allergy/Medication List:
Allergies
Allergy/AdvReac Type Severity Reaction Status Date / Time
No Known Allergies Allergy Verified 01/06/24 03:59
Home Medications
apixaban 2.5 mg tablet (Eliquis) 2.5 mg PO BID blood thinner #60 tabs 05/12/21
atorvastatin 80 mg tablet 80 mg PO DAILY High cholesterol 01/03/22
tamsulosin 0.4 mg capsule 0.4 mg PO BID Urinary issue 02/08/22
clopidogrel 75 mg tablet 75 mg PO DAILY #30 tabs 12/02/23
pantoprazole 40 mg tablet,delayed release 40 mg PO DAILY #30 tabs 12/02/23
amlodipine 5 mg tablet 5 mg PO DAILY Blood pressure #30 tabs 12/16/23
cyanocobalamin (vitamin B-12) 1 tab PO TUSA@0800 Supplement 01/06/24
furosemide 80 mg tablet 80 mg PO BID Fluid Retention/Swelling 01/06/24
lorazepam 0.5 mg tablet 0.5 mg PO TID PRN anxiety 01/06/24
losartan 25 mg tablet 25 mg PO DAILY Blood Pressure 01/06/24
melatonin 3 mg tablet 3 mg PO HS PRN sleep 01/06/24
temazepam 15 mg capsule 15 mg PO HS SLEEP 01/06/24
carvedilol 6.25 mg tablet (Coreg) 6.25 mg PO BID #90 tabs 01/09/24
acetaminophen 325 mg tablet (Tylenol) 975 mg PO DAILYPRN PRN mild pain 01/26/24
loperamide 2 mg capsule 4 mg PO Q2HPRN PRN diarrhea 01/26/24
Review of Systems
-
History Source: Patient
A 12 point ROS was completed and negative except as noted: Yes
Constitutional: Denies Fever or Chills
EENT: Denies Sore Throat or Runny Nose
Respiratory: Denies Cough or Trouble Breathing
Cardiac: Denies Chest Pain, Diaphoresis or Syncope
Abdomen/GI: Reports Nausea and Diarrhea (Yellow watery); Denies Vomiting or Constipated
: Denies Dysuria, Frequency, Flank Pain, Incontinence or Difficulty Voiding
Musculoskeletal: Denies Joint Pain, Joint Swelling or Muscle Pain
Skin: Denies Itching or Rash
Neurological: Denies Dizzy, Headache or Weakness
Endocrine: Reports No Symptoms
Hematologic/Lymphatic: Reports No Symptoms
Psych: Reports Calm
Physical Exam
Vital Signs
Vital Signs
Temp Pulse Resp BP Pulse Ox
97.7 F 81 24 139/74 95
01/26/24 20:40 01/26/24 20:40 01/26/24 20:40 01/26/24 20:40 01/26/24 22:22
Physical Exam
General: Conversant; No Pain, Fever or Chills
HEENT: NormoCephalic, Anicteric, PERRLA and Other (Dry oral mucosa)
Respiratory: Clear; No Wheezes, Rales or Rhonchi
Cardiac: S1/S2 and Regular Rhythm; No Murmur, Rub, Gallop or Peripheral Edema
Breast: Deferred by me
GI: Soft, Non Tender, Non Distended, No Hepatosplenomegaly and Other (Hyperactive bowel sounds, watery yellow diarrhea)
Rectal: Deferred by Provider
Genito-urinary: Deferred by me
Musculoskeletal: No Clubbing, No Cyanosis and No Edema
Skin: Warm, Dry and Other (AV fistula); No Rash
Neuro: AO x 3, No Motor Deficits, Nonfocal/grossly intact, Cranial Nerves Intact and No Sensory Deficits; No Slurred Speech, Facial Droop or Tremors
Psych: Calm
Laboratory Results
-
01/26/24 20:47
01/26/24 20:47
Laboratory Results
PT 15.9 Sec (11.4-14.6) H 01/26/24 20:47
INR 1.29 01/26/24 20:47
APTT 44.1 Sec (23.4-35.0) H 01/26/24 20:47
Total Bilirubin 1.2 mg/dl (0.2-1.3) 01/26/24 20:47
AST 18 U/L (17-59) 01/26/24 20:47
ALT 13 U/L (0-50) 01/26/24 20:47
Alkaline Phosphatase 90 U/L (38-126) 01/26/24 20:47
Troponin I 0.028 ng/ml 01/26/24 21:24
Data Reviewed
-
CT Scan: Report Reviewed by me
Lab Data: Labs Reviewed by me
Impression/Plan
-
Impression/plan:
Admit to MedSurg
#Acute enteritis likely viral with Volume depletion 2/2 to diarrhea
stool culture, stool wbc, cdiff
- add probiotic
- zofran
- Iv NSS 80 cc/hr
CT abdomen pelvis with IV contrast:
? Mild enteritis with a few slightly prominent small bowel loops
#ESRD on HD Friday
#Left upper extremity fistula
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
Hx noncompliance with HD
-Consult Nephro
-IV NSS
#Hx CAD/NSTEMI/stent RCA 11/26/2023
#RBBB
s/p LCX JOSE & PDA PTCA 2007
s/p CABG x3 GALVEZ to LAD, SVG sequential to OM-2 and OM-3 05/19/17
s/p NSTEMI and 2.75 mm Xience to mid RCA 11/26/2023
-Continue aspirin, Plavix
-Follows with [facility]
2D echo 12/02/2023 EF 60-65% no wall abnormalities, mild LVH
#Anemia of chronic disease
-Hgb 10.1 appears baseline for patient
#Paroxysmal A-fib
Linq monitor no longer functional since 2019
-Continue metoprolol with hold parameters
-Continue Eliquis
#CVA Hx 11/05/2012, 03/06/2017
-Continue Plavix, statin
#HTN�benign
-Continue Norvasc, losartan,
-HOLD furosemide
#HLD
-Continue statins
#GERD
-Continue PPI
#BPH
-Continue Flomax
#Anxiety
-Continue lorazepam 3 times daily
DVT prophylaxis
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
Dnr per pt
[2024-01-26 23:00] VITALS: BP 167/68
[2024-01-27] VITALS (19 sets, daily range): BP systolic 138–163; BP diastolic 49–96; PULSE 65; BMI 25.9; BMI 25.4
[2024-01-27] MEDS: TYLENOL 975 MG PO (00:48)
[2024-01-27] MEDS: NSS 1000 IV (01:01)
[2024-01-27 06:14] LABS: % Basophils 0.1 % (0-2); % Eosinophils 1.2 % (0-6); % Immature Granulocytes 9.6 % (0-0.5); % Lymphocytes 8.3 % (20.5-51.1); % Monocytes 16.1 % (1.7-9.3); % Neutrophils 64.7 % (42.2-75.2); Absolute Eosinophils 0.1 10^3/uL (0-0.7); Absolute Immature Granulocytes 0.7 10^3/uL (0-0.05); Absolute Lymphocytes 0.6 10^3/uL (1.2-3.4); Absolute Monocytes 1.2 10^3/uL (0.1-0.6); Absolute Neutrophils 4.8 10^3/uL (1.4-6.5); Hematocrit 24.6 % (39.0-52.0); Hemoglobin 8.1 g/dL (13.0-18.0); Mean Corp Hgb Conc. 32.9 g/dL (33.0-37.0); Mean Corpuscular Hgb 31.4 pg (27.0-31.0); Mean Corpuscular Volume 95.3 fL (80.0-94.0); Nucleated Red Blood Cells % 0 % (-); Platelet Count 155 10^3/uL (130-400); Red Blood Cell Count 2.58 10^6/uL (4.70-6.10); Red Cell Dist. Width 16.5 % (11.5-14.5); White Blood Cell Count 7.4 10^3/uL (4.8-10.8)
[2024-01-27 06:46] LABS: ALT (SGPT) < 10 U/L (0-50); AST (SGOT) 15 U/L (17-59); Albumin 3.6 g/dl (3.5-5.0); Alkaline Phosphatase 86 U/L (38-126); Blood Urea Nitrogen 64 mg/dl (9-20); Carbon Dioxide 27 mmol/L (22-30); Chloride 99 mmol/L (98-107); Glucose 116 mg/dl (70-99); Potassium 3.8 mmol/L (3.5-5.1); Sodium 139 mmol/L (135-145); Total Bilirubin 0.9 mg/dl (0.2-1.3); Total Protein 5.9 g/dl (6.3-8.2); eGFR 5.24
[2024-01-27] MEDS: FLOMAX 0.400000000000000022 MG PO ×2 (07:49→20:24)
[2024-01-27] MEDS: LIPITOR 80 MG PO (07:49)
[2024-01-27] MEDS: PROTONIX 40 MG PO (07:49)
[2024-01-27] MEDS: VISBIOME 2 CAP PO (07:49)
[2024-01-27] MEDS: COZAAR 25 MG PO (07:49)
[2024-01-27] MEDS: PLAVIX 75 MG PO (07:49)
[2024-01-27] MEDS: ELIQUIS 2.5 MG PO ×2 (07:50→20:24)
[2024-01-27] MEDS: VITAMIN B-12 1000 MCG PO (07:50)
[2024-01-27] MEDS: COREG 6.25 MG PO ×2 (07:50→20:23)
--- NOTE | 2024-01-27 09:43 | VNURNOTE ---
Patient is current with [facility] since 01/11 w/SN, will monitor progress and plan at discharge.
--- NOTE | 2024-01-27 10:44 | W.CON.NEPH ---
Consultation
-
Date/Time Consultation Requested: 01/26/24 2318
Date/Time Consultation Performed: 01/27/24 1000
Requesting Provider: Eduardo Garcia
Performing Provider: Anastacia Wall
Reason for Consultation: ESRD
Medical History
-
Chief Complaint: Diarrhea
History of Present Illness:
83-year-old male who is well known to us for his end-stage renal disease on hemodialysis Tuesdays, Saturdays at [facility]. By his own preference, he would not come do more treatments. He does have known coronary
disease with bypass grafting as well as recent stenting in Nov of his RCA. He has hypertension on a multidrug regimen as well as paroxysmal atrial fibrillation on Eliquis therapy. He had multiple admits since Nov. He now returns with diarrhea
starting from Friday 2days ago after eating sandwich at breakfast, CT shows enteritis. He reports feeling dizzy but no n/v or abd pain. NO fever, cough or CP or sob. Last admit in dec for CP felt he was under dialyzed and recommended to increase to
3xweekly diaysis but pt refused to comply. We are asked to assist in management of his ESRD, last HD on Friday..
Past Medical History
Status post RCA stent on 11/26/23
ESRD () [facility] in [place]
Diarrhea chronic
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
Hypertension
Atrial fibrillation
BPH
Anemia of CKD
CAD/CABG 2016
Cerebrovascular disease
TIA 2002
History ESBL Klebsiella pneumoniae UTI
Gout
Medical noncompliance (allows only two 3-hour HD treatments weekly)
Social History
Tobacco: Former Smoker
Alcohol: None
Living: Alone
Family History
No CKD
Family History: Not Pertinent
Allergies / Home Medications
Allergy/AdvReac Type Severity Reaction Status Date / Time
No Known Allergies Allergy Verified 01/06/24 03:59
Medication Instructions Recorded Confirmed Type
apixaban 2.5 mg tablet (Eliquis) 2.5 mg PO BID blood thinner #60 05/12/21 01/26/24 Rx
tabs
atorvastatin 80 mg tablet 80 mg PO DAILY High cholesterol 01/03/22 01/26/24 History
tamsulosin 0.4 mg capsule 0.4 mg PO BID Urinary issue 02/08/22 01/26/24 History
clopidogrel 75 mg tablet 75 mg PO DAILY #30 tabs 12/02/23 01/26/24 Rx
pantoprazole 40 mg tablet,delayed 40 mg PO DAILY #30 tabs 12/02/23 01/26/24 Rx
release
amlodipine 5 mg tablet 5 mg PO DAILY Blood pressure #30 12/16/23 01/26/24 Rx
tabs
cyanocobalamin (vitamin B-12) 1 tab PO TUSA@0800 Supplement 01/06/24 01/26/24 History
furosemide 80 mg tablet 80 mg PO BID Fluid 01/06/24 01/26/24 History
Retention/Swelling
lorazepam 0.5 mg tablet 0.5 mg PO TID PRN anxiety 01/06/24 01/26/24 History
losartan 25 mg tablet 25 mg PO DAILY Blood Pressure 01/06/24 01/26/24 History
melatonin 3 mg tablet 3 mg PO HS PRN sleep 01/06/24 01/26/24 History
temazepam 15 mg capsule 15 mg PO HS SLEEP 01/06/24 01/26/24 History
carvedilol 6.25 mg tablet (Coreg) 6.25 mg PO BID #90 tabs 01/09/24 01/26/24 Rx
acetaminophen 325 mg tablet 975 mg PO DAILYPRN PRN mild pain 01/26/24 01/26/24 History
(Tylenol)
loperamide 2 mg capsule 4 mg PO Q2HPRN PRN diarrhea 01/26/24 01/26/24 History
Review of Systems
-
All complete 12 point ROS have been inquired and found negative other than stated in HPI
Physical Exam
Vital Signs
Vital Signs
Temp Pulse Resp BP Pulse Ox
97.8 F 80 16 151/62 94
01/27/24 07:00 01/27/24 07:49 01/27/24 07:00 01/27/24 07:49 01/27/24 07:00
Lab Results
WBC 7.4 10^3/uL (4.8-10.8) 01/27/24 05:51
RBC 2.58 10^6/uL (4.70-6.10) L 01/27/24 05:51
Hgb 8.1 g/dL (13.0-18.0) L 01/27/24 05:51
Hct 24.6 % (39.0-52.0) L 01/27/24 05:51
Plt Count 155 10^3/uL (130-400) 01/27/24 05:51
Sodium 139 mmol/L (135-145) 01/27/24 05:51
Potassium 3.8 mmol/L (3.5-5.1) 01/27/24 05:51
Chloride 99 mmol/L (98-107) 01/27/24 05:51
Carbon Dioxide 27 mmol/L (22-30) 01/27/24 05:51
BUN 64 mg/dl (9-20) H 01/27/24 05:51
Creatinine 9.1 mg/dL (0.7-1.3) H* 01/27/24 05:51
eGFR 5.24 01/27/24 05:51
Glucose 116 mg/dl (70-99) H 01/27/24 05:51
Calcium 8.0 mg/dl (8.4-10.2) L 01/27/24 05:51
Albumin 3.6 g/dl (3.5-5.0) 01/27/24 05:51
Exams:� CT Abd/pelvis W Iv Cont
PROCEDURES: CT Abd/pelvis W Iv Cont
CLINICAL INDICATION: Left abdominal tenderness.
TECHNIQUE: A CT examination of the abdomen and pelvis was performed following the administration of nonionic intravenous contrast. Oral contrast was not administered. Coronal and sagittal reformatted images were obtained. Automatic exposure control
radiation dose reduction technology was utilized.
COMPARISON: CT abdomen/pelvis 12/20/2023.
FINDINGS:
CHEST: Mild atelectasis in the left lung base. Small hiatal hernia. Sternotomy wires and coronary artery calcifications.
ABDOMEN:
Subcentimeter hypoattenuating foci in the right hepatic lobe, too small to accurately characterize. The gallbladder, bile ducts, pancreas, and bilateral adrenal glands are unremarkable. The spleen is enlarged and measures 15 cm in length. Chronic
bilateral renal cortical thinning. Bilateral renal cysts with the largest measuring 2.6 cm in the upper pole of the right kidney. Right upper pole renal calculus measuring 4 mm. Punctate right midpole renal calculus. No hydronephrosis.
The abdominal aorta is normal in caliber. Severe aortobiiliac calcified atherosclerosis. Severe calcified atherosclerosis throughout the upper abdominal arterial vasculature.
No abdominal or retroperitoneal lymphadenopathy.
Tiny fat-containing umbilical hernia.
Colonic diverticulosis, without evidence for acute diverticulitis. No bowel obstruction. Nonspecific but slightly prominent small bowel loops, which may be on the basis of a mild enteritis. No extraluminal free air, fluid collection, or ascites.
PELVIS: The urinary bladder is unremarkable. The prostate gland is mildly enlarged. No pelvic lymphadenopathy or free fluid.
SKELETON: Chronic degenerative changes of the spine.
IMPRESSION:
Questionable mild enteritis with diffuse slightly prominent small bowel loops. Chronic findings are otherwise unchanged from previous examinations.
Electronically signed by Conrad Patel 01/26/2024 10:32 PM
[employer] Dose Report: Up-to-date CT equipment and radiation dose reduction techniques were employed. CTDIvol: 12.8 mGy. DLP: 751 mGy-cm.
Physical Exam
General: Awake, Alert, Oriented, No Distress and Nontoxic
HEENT: EOMI and Anicteric
Respiratory: Clear
Cardiac: S1/S2, Regular Rate/Rhythm and No Edema
Abdomen: Soft, Nontender and Nondistended
Musculoskeletal: No Cyanosis and No Edema
Skin: No Rash
Neuro: Nonfocal/Grossly Intact
Psych: Mood/afflect pleasant, Insight/judgement good and Appropriate
Assessment/Plan
-
Assessment:
Acute enteritis likely viral with Volume depletion 2/2 to diarrhea
Status post RCA stent on 11/26/23
ESRD (TuSa 3hr) [facility] in [place]
Diarrhea chronic
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
Hypertension
Atrial fibrillation
BPH
Anemia of CKD
CAD/CABG 2016
Cerebrovascular disease
TIA 2002
History ESBL Klebsiella pneumoniae UTI
Gout
Medical noncompliance (allows only two 3-hour HD treatments weekly)
Plan:
A/w acute onset of diarrhea 2days ago, CT noted enteritis
felt viral in nature-cont supportive care s/p 1.25 lit NS in ER
BP are stable back on home meds
plan HD today with limited UF as he risk of vol depletion
high dose ROB for anemia
He typically does Friday and Friday 3hr HD only and would not allow anymore than this and he is well aware of under dialysis and its complication-reviewed in the past many times
d/w pt
Data Reviewed
-
Radiology: Report Reviewed by me
CT Scan: Report Reviewed by me
Labs: Labs Reviewed by me
--- NOTE | 2024-01-27 11:03 | W.PN.HOSP.TC ---
Today's Communication/Plan
-
monitor stool output
HD today-awaiting room assignment
BRAT diet
Assessment / Plan
Assessment / Plan
#Acute enteritis likely viral with Volume depletion 2/2 to diarrhea
-�cdiff negative.
-�add probiotic
- zofran
- DC IVF. Diet advanced to BRAT.
CT abdomen pelvis with IV contrast: ?� Mild enteritis with a few slightly prominent small bowel loops
#ESRD on HD Friday
#Left upper extremity fistula
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
Hx noncompliance with HD
-Consult Nephro
#Hx CAD/NSTEMI/stent RCA 11/26/2023
#RBBB
s/p LCX JOSE & PDA PTCA 2007
s/p CABG x3 GALVEZ to LAD, SVG sequential to OM-2 and OM-3 05/19/17
s/p NSTEMI and 2.75 mm Xience to mid RCA 11/26/2023-Continue aspirin, Plavix
-Follows with [facility]
2D echo 12/02/2023 EF 60-65% no wall abnormalities, mild LVH
#Anemia of chronic disease
-Hgb 8.1
-EPO/IV iron per nephro.
#Paroxysmal A-fib
Linq monitor no longer functional since 2019
-Continue metoprolol with hold parameters
-Continue Eliquis
#CVA Hx 11/05/2012, 03/06/2017
-Continue Plavix, statin
#HTN�benign
-Continue Norvasc, losartan,
-HOLD furosemide
#HLD
-Continue statins
#GERD
-Continue PPI
#BPH
-Continue Flomax
#Anxiety
-Continue lorazepam 3 times daily
DVT prophylaxis
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
Dnr per pt
Anticipated Discharge: > 48 hours
Subjective/Interval History
-
Date of Service: January 27, 2024
denies abd pain or nausea
with rectal tube
tolerated breakfast
Objective Data
-
Labs:
Laboratory Results
01/27/24
05:51
WBC 7.4
Hgb 8.1 L
Hct 24.6 L
Plt Count 155
Sodium 139
Potassium 3.8
Chloride 99
Carbon Dioxide 27
BUN 64 H
Creatinine 9.1 H*
Glucose 116 H
Calcium 8.0 L
Total Bilirubin 0.9
AST 15 L
ALT < 10
Alkaline Phosphatase 86
Vital Signs:
Vital Signs
Temp Pulse Resp BP Pulse Ox
97.8 F 80 16 151/62 94
01/27/24 07:00 01/27/24 07:49 01/27/24 07:00 01/27/24 07:49 01/27/24 07:00
Physical Exam
-
General: Well Developed and No Apparent Distress
HEENT: Normocephalic, Atraumatic and Moist Mucous Membranes
Respiratory: Clear to Auscultation
Cardiac: Regular Rhythm and S1/S2; Negative Murmur, Rub or Gallop
GI: Soft, Nontender, Nondistended and Normal Bowel Sounds; Negative Organomegaly
Rectal: Deferred by Provider
Musculoskeletal: No Clubbing, No Cyanosis and No Edema
Skin: Negative Rash
Neuro: Awake, No Motor Deficits and Nonfocal/Grossly Intact
[2024-01-27] MEDS: NORVASC 5 MG PO (11:17)
--- NOTE | 2024-01-27 13:00 | PTCARENOTE ---
Patient received to [facility] with rectal pouch placed in ED. Vitals stable on room air. Patient oriented to room. Dialysis treatment received in afternoon.
[2024-01-27] MEDS: TYLENOL 650 MG PO (15:59)
[2024-01-27] MEDS: RETACRIT 10000 UNITS IV (17:25)
--- NOTE | 2024-01-27 17:36 | W.PN.NEPH.HD ---
Assessment
-
pt seen during HD
vitals stable
still with diarrhea on rectal tube
limited UF
AVF functions well
Progress Note - Hemodialysis
-
Date of Service: January 27, 2024
Duration: 3 hours
Potassium Bath: 3
Calcium Bath: 2.5
Opti-Dialyzer: 160
Ultrafiltration: Other (0.5kg)
Blood Flow: 400
Dialysate Flow: 600
Heparin: no
EPO: 29344
[2024-01-27] MEDS: RESTORIL 15 MG PO (21:58)
[2024-01-28 05:08] LABS: % Basophils 0.2 % (0-2); % Immature Granulocytes 11.1 % (0-0.5); % Lymphocytes 12.7 % (20.5-51.1); % Monocytes 14.7 % (1.7-9.3); % Neutrophils 59.3 % (42.2-75.2); Absolute Eosinophils 0.1 10^3/uL (0-0.7); Absolute Immature Granulocytes 0.5 10^3/uL (0-0.05); Absolute Lymphocytes 0.6 10^3/uL (1.2-3.4); Absolute Monocytes 0.7 10^3/uL (0.1-0.6); Absolute Neutrophils 2.7 10^3/uL (1.4-6.5); Hemoglobin 8.4 g/dL (13.0-18.0); Mean Corp Hgb Conc. 33.6 g/dL (33.0-37.0); Mean Corpuscular Hgb 32.4 pg (27.0-31.0); Mean Corpuscular Volume 96.5 fL (80.0-94.0); Mean Platelet Volume 10.8 fL (7.4-10.4); Nucleated Red Blood Cells % 0 % (-); Platelet Count 142 10^3/uL (130-400); Red Blood Cell Count 2.59 10^6/uL (4.70-6.10); Red Cell Dist. Width 16.3 % (11.5-14.5); White Blood Cell Count 4.5 10^3/uL (4.8-10.8)
[2024-01-28 05:38] VITALS: BMI 25.9
[2024-01-28 05:59] LABS: ALT (SGPT) < 10 U/L (0-50); AST (SGOT) 18 U/L (17-59); Albumin 3.5 g/dl (3.5-5.0); Alkaline Phosphatase 85 U/L (38-126); Blood Urea Nitrogen 25 mg/dl (9-20); Calcium 7.7 mg/dl (8.4-10.2); Carbon Dioxide 27 mmol/L (22-30); Chloride 101 mmol/L (98-107); Estimated Creatinine Clearance 11 ml/min; Glucose 94 mg/dl (70-99); Sodium 135 mmol/L (135-145); Total Bilirubin 0.8 mg/dl (0.2-1.3); Total Protein 5.8 g/dl (6.3-8.2); eGFR 10.51
[2024-01-28 07:20] VITALS: BP 145/51
[2024-01-28] MEDS: COZAAR 25 MG PO (08:39)
[2024-01-28] MEDS: NORVASC 5 MG PO (08:40)
[2024-01-28] MEDS: ELIQUIS 2.5 MG PO ×2 (08:40→20:52)
[2024-01-28] MEDS: COREG 6.25 MG PO ×2 (08:40→20:52)
[2024-01-28] MEDS: PROTONIX 40 MG PO (08:40)
[2024-01-28] MEDS: IMODIUM 4 MG PO (08:40)
[2024-01-28] MEDS: VISBIOME 2 CAP PO (08:40)
[2024-01-28] MEDS: PLAVIX 75 MG PO (08:40)
[2024-01-28] MEDS: LIPITOR 80 MG PO (08:40)
[2024-01-28] MEDS: FLOMAX 0.400000000000000022 MG PO ×2 (08:40→20:52)
--- NOTE | 2024-01-28 10:27 | W.PN.HOSP.TC ---
Today's Communication/Plan
-
monitor stools output
advanced diet
Assessment / Plan
Assessment / Plan
#Acute enteritis likely viral with Volume depletion 2/2 to diarrhea
-�cdiff and norovirus negative.
-�add probiotic. Imodium x 1 dose.
- zofran
- DC IVF. Will advanced to LRD. Monitor diet tolerance.
- CT abdomen pelvis with IV contrast: ?� Mild enteritis with a few slightly prominent small bowel loops
- wbc wnl. afebrile. Hold off on abx.
#ESRD on HD Friday
#Left upper extremity fistula
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
Hx noncompliance with HD and only wants 2 days of week compared to TID weekly. Understands risks
-Consult Nephro
#Hx CAD/NSTEMI/stent RCA 11/26/2023
#RBBB
2D echo 12/02/2023 EF 60-65% no wall abnormalities, mild LVH
-No chest pain.
#Anemia of chronic disease
-Hgb 8.4
-EPO/IV iron per nephro.
#Paroxysmal A-fib
Linq monitor no longer functional since 2019
-Continue metoprolol with hold parameters
-Continue Eliquis
#CVA Hx 11/05/2012, 03/06/2017
-Continue Plavix, statin
#HTN�benign
-Continue Norvasc, losartan,
-HOLD furosemide
#HLD
-Continue statins
#GERD
-Continue PPI
#BPH
-Continue Flomax
#Anxiety
-Continue lorazepam 3 times daily
DVT prophylaxis
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
Dnr per pt
PT/OT -HH vs. no needs.
Anticipated Discharge: Within 24 hours
Subjective/Interval History
-
Date of Service: January 28, 2024
underwent Hd yesterday
Denies abd pain this morning
tolerating breakfast
not much output in rectal bag
Objective Data
-
Labs:
Laboratory Results
01/28/24
04:06
WBC 4.5 L
Hgb 8.4 L
Hct 25.0 L
Plt Count 142
Sodium 135
Potassium 4.0
Chloride 101
Carbon Dioxide 27
BUN 25 H
Creatinine 5.1 H*
Glucose 94
Calcium 7.7 L
Total Bilirubin 0.8
AST 18
ALT < 10
Alkaline Phosphatase 85
Vital Signs:
Vital Signs
Temp Pulse Resp BP Pulse Ox
98.8 F 68 14 145/51 94
01/28/24 07:20 01/28/24 08:40 01/28/24 07:20 01/28/24 08:40 01/28/24 07:20
I&O
01/27/24 01/28/24 01/29/24
06:59 06:59 06:59
Intake Total 720 / 720
Output Total 300 / 300
Balance 420 / 420
Physical Exam
-
General: Well Developed and No Apparent Distress
HEENT: Normocephalic, Atraumatic and Moist Mucous Membranes
Respiratory: Clear to Auscultation
Cardiac: Regular Rhythm and S1/S2; Negative Murmur, Rub or Gallop
GI: Soft, Nontender, Nondistended, Normal Bowel Sounds and Other (rectal bag-no stool noted); Negative Organomegaly
Rectal: Deferred by Provider
Musculoskeletal: No Clubbing, No Cyanosis and No Edema
Skin: Negative Rash
Neuro: Awake and Nonfocal/Grossly Intact
[2024-01-28] MEDS: TYLENOL 650 MG PO ×2 (10:31→23:55)
--- NOTE | 2024-01-28 11:15 | W.PN.NEPH.PH ---
Today's Communication / Plan
-
- no hd tomorrow per patient preference
Assessment/Plan
-
Assessment:
Acute enteritis likely viral with Volume depletion 2/2 to diarrhea
Status post RCA stent on 11/26/23
ESRD (TuSa 3hr) [facility] in [place]
Diarrhea chronic
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
Hypertension
Atrial fibrillation
BPH
Anemia of CKD
CAD/CABG 2016
Cerebrovascular disease
TIA 2002
History ESBL Klebsiella pneumoniae UTI
Gout
Medical noncompliance (allows only two 3-hour HD treatments weekly)
Plan:
A/w acute onset of diarrhea 2days ago, CT noted enteritis
felt viral in nature-cont supportive care s/p 1.25 lit NS in ER
BP are stable back on home meds
plan HD today with limited UF as he risk of vol depletion
high dose ROB for anemia
He typically does Friday and Friday 3hr HD only and would not allow anymore than this and he is well aware of under dialysis and its complication-reviewed in the past many times
-
-
Date of Service: January 28, 2024
CC / HPI / ROS
-
Chief Complaint:
ESRD on HD
History of Present Illness:
enteritis, continues with diarrhea
Review of Systems:
denies complaints.
Labs
-
Labs:
WBC 4.5 10^3/uL (4.8-10.8) L 01/28/24 04:06
RBC 2.59 10^6/uL (4.70-6.10) L 01/28/24 04:06
Hgb 8.4 g/dL (13.0-18.0) L 01/28/24 04:06
Hct 25.0 % (39.0-52.0) L 01/28/24 04:06
Plt Count 142 10^3/uL (130-400) 01/28/24 04:06
Sodium 135 mmol/L (135-145) 01/28/24 04:06
Potassium 4.0 mmol/L (3.5-5.1) 01/28/24 04:06
Chloride 101 mmol/L (98-107) 01/28/24 04:06
Carbon Dioxide 27 mmol/L (22-30) 01/28/24 04:06
BUN 25 mg/dl (9-20) H 01/28/24 04:06
Creatinine 5.1 mg/dL (0.7-1.3) H* 01/28/24 04:06
eGFR 10.51 01/28/24 04:06
Glucose 94 mg/dl (70-99) 01/28/24 04:06
Calcium 7.7 mg/dl (8.4-10.2) L 01/28/24 04:06
Albumin 3.5 g/dl (3.5-5.0) 01/28/24 04:06
Physical Exam
-
Vital Signs:
Vital Signs
Temp Pulse Resp BP Pulse Ox
98.8 F 68 14 145/51 94
01/28/24 07:20 01/28/24 08:40 01/28/24 07:20 01/28/24 08:40 01/28/24 07:20
Cardiovascular:: Regular rate and rhythm
Respiratory:: Bilateral: Coarse
Lung Excursion:: Normal
Abdomen:: Nontender and Soft
Bowel Sounds:: Normal
Extremity Edema:: +1: Bilateral:
Escobar Catheter: No
[2024-01-28 15:20] VITALS: BP 128/47
--- NOTE | 2024-01-28 15:26 | CM ---
Initial assessment completed with patient with daughter in room. Patient lives alone in a 2 story home with basement , no steps to enter, B/B on and 1/2 bath on , has a RW and SPC, no in home services. 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
drove. He receives HD on and Sat only with a 5:30am chair time at [facility] in [place]. His daughter, Elle Sandra, is HC POA. His 2 daughters are support system. No psychiatric history. Pharmacy is [facility] in [place] and PCP is
Jose Lozoya. Anticipate no needs at discharge.
[2024-01-28 16:53] VITALS: BP 143/61; PULSE 77; O2SAT 100
[2024-01-28 20:51] VITALS: BP 159/57
[2024-01-28] MEDS: RESTORIL 15 MG PO (20:52)
[2024-01-28 23:35] VITALS: BP 138/52
[2024-01-29 05:06] LABS: Hematocrit 24.2 % (39.0-52.0); Hemoglobin 7.9 g/dL (13.0-18.0); Mean Corp Hgb Conc. 32.6 g/dL (33.0-37.0); Mean Corpuscular Volume 94.9 fL (80.0-94.0); Mean Platelet Volume 10.5 fL (7.4-10.4); Nucleated Red Blood Cells % 0 % (-); Platelet Count 143 10^3/uL (130-400); Red Blood Cell Count 2.55 10^6/uL (4.70-6.10); Red Cell Dist. Width 16.2 % (11.5-14.5); White Blood Cell Count 3.8 10^3/uL (4.8-10.8)
[2024-01-29 05:31] LABS: ALT (SGPT) < 10 U/L (0-50); AST (SGOT) 15 U/L (17-59); Albumin 3.4 g/dl (3.5-5.0); Alkaline Phosphatase 74 U/L (38-126); Blood Urea Nitrogen 42 mg/dl (9-20); Calcium 7.7 mg/dl (8.4-10.2); Carbon Dioxide 27 mmol/L (22-30); Chloride 97 mmol/L (98-107); Estimated Creatinine Clearance 7 ml/min; Glucose 122 mg/dl (70-99); Sodium 136 mmol/L (135-145); Total Bilirubin 0.5 mg/dl (0.2-1.3); Total Protein 5.7 g/dl (6.3-8.2); eGFR 6.51
[2024-01-29 06:00] VITALS: BMI 25.8
[2024-01-29 07:43] LABS: Absolute Neutrophils -Man Diff 2.6 10^3/uL (1.4-6.5); Band Neutrophils 2 % (0-3); Eosinophils 2 % (0-6); Lymphocytes 21 % (20-51); Monocytes 6 % (2-9); Segmented Neutrophils 69 % (42-75)
[2024-01-29 07:45] LABS: Acanthocytes 1+; Anisocytosis 1+; Hypochromasia 1+; Normal RBC Morphology No; Ovalocytes 1+; Platelets Checked Yes; Polychromasia 1+; Total Cells Counted 100
[2024-01-29 07:55] VITALS: BP 162/59
[2024-01-29] MEDS: LASIX 80 MG PO (08:00)
[2024-01-29] MEDS: NORVASC 5 MG PO (08:01)
[2024-01-29] MEDS: COZAAR 25 MG PO (08:01)
[2024-01-29] MEDS: PLAVIX 75 MG PO (08:01)
[2024-01-29] MEDS: FLOMAX 0.400000000000000022 MG PO (08:01)
[2024-01-29] MEDS: LIPITOR 80 MG PO (08:02)
[2024-01-29] MEDS: PROTONIX 40 MG PO (08:02)
[2024-01-29] MEDS: ELIQUIS 2.5 MG PO (08:02)
[2024-01-29] MEDS: COREG 6.25 MG PO (08:02)
[2024-01-29] MEDS: VISBIOME 2 CAP PO (08:02)
--- NOTE | 2024-01-29 09:55 | W.PN.HOSP.TC ---
Addendum entered and electronically signed by Eduardo Guzman MD 01/29/24 09:59:
Addendum-rectal bag has been removed since yesterday.
Original Note:
Today's Communication/Plan
-
DC home
Dialysis on Friday
Assessment / Plan
Assessment / Plan
#Acute enteritis likely viral with Volume depletion 2/2 to diarrhea
-�cdiff and norovirus negative.
-�add probiotic. Imodium x 1 dose.
- zofran
- DC IVF. Will advanced to [facility]. Monitor diet tolerance.
- CT abdomen pelvis with IV contrast: ?� Mild enteritis with a few slightly prominent small bowel loops
- wbc wnl. afebrile. Hold off on abx.
#ESRD on HD Friday
#Left upper extremity fistula
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
Hx noncompliance with HD and only wants 2 days of week compared to TID weekly. Understands risks
-Makes urine. On diuretics.
-Consult Nephro
#Hx CAD/NSTEMI/stent RCA 11/26/2023
#RBBB
2D echo 12/02/2023 EF 60-65% no wall abnormalities, mild LVH
-No chest pain.
#Anemia of chronic disease
-Hgb 7.9. No luminal bleeding.
-EPO/IV iron per nephro.
#Paroxysmal A-fib
Linq monitor no longer functional since 2019
-Continue metoprolol with hold parameters
-Continue Eliquis
#CVA Hx 11/05/2012, 03/06/2017
-Continue Plavix, statin
#HTN�benign
-Continue Norvasc, losartan,
#HLD
-Continue statins
#GERD
-Continue PPI
#BPH
-Continue Flomax
#Anxiety
-Continue lorazepam 3 times daily
DVT prophylaxis
Continue [employer] Eliquis
Dnr per pt
PT/OT -HH vs. no needs.
DC today.More than 30 minutes spent in discharge including
Final examination of the patient
Summarizing hospital stay
Instructions for continuing care to all relevant caregivers
Preparation of discharge records, prescriptions, and referral forms
Total time spent (in minutes): 45
Anticipated Discharge: Today
Subjective/Interval History
-
Date of Service: January 29, 2024
Feeling better
Tolerating diet
Denies severe abdominal pain
Denies any nausea vomiting
Sitting in chair.
Afebrile.
Objective Data
-
Labs:
Laboratory Results
01/29/24
04:20
WBC 3.8 L
Hgb 7.9 L
Hct 24.2 L
Plt Count 143
Sodium 136
Potassium 4.0
Chloride 97 L
Carbon Dioxide 27
BUN 42 H
Creatinine 7.6 H*
Glucose 122 H
Calcium 7.7 L
Total Bilirubin 0.5
AST 15 L
ALT < 10
Alkaline Phosphatase 74
Vital Signs:
Vital Signs
Temp Pulse Resp BP Pulse Ox
97.7 F 64 12 162/59 99
01/29/24 07:55 01/29/24 08:02 01/29/24 07:55 01/29/24 08:02 01/29/24 07:55
I&O
01/28/24 01/29/24 01/30/24
06:59 06:59 06:59
Intake Total 720 / 720 1140 / 1140
Output Total 300 / 300 100 / 100
Balance 420 / 420 1040 / 1040
Physical Exam
-
General: Well Developed and No Apparent Distress
HEENT: Normocephalic, Atraumatic and Moist Mucous Membranes
Respiratory: Clear to Auscultation
Cardiac: Regular Rhythm and S1/S2; Negative Murmur, Rub or Gallop
GI: Soft, Nontender, Nondistended, Normal Bowel Sounds and Other (rectal bag-no stool noted); Negative Organomegaly
Rectal: Deferred by Provider
Musculoskeletal: No Clubbing, No Cyanosis and No Edema
Skin: Negative Rash
Neuro: Awake and Nonfocal/Grossly Intact
--- NOTE | 2024-01-29 10:00 | W.DCSUMMARY ---
Discharge Summary
Discharge Data
Date of Admission: 01/26/24
Date of Discharge: 01/29/24
-
Pending Results: No
Hospital Course
82 male past medical history of anemia chronic ESRD on dialysis, stroke, hypertension, hyperlipidemia, GERD, BPH, CAD status post stents, anxiety presenting from home with abdominal pain nausea and vomiting. Patient stated he had frozen breakfast
which he heated up. Had a lot of abdominal pain nausea vomiting decided come to the ER. Underwent CT abdomen pelvis which showed mild enteritis with diffuse slightly prominent small bowel loops. Chronic findings. No abdominal retroperitoneal
lymphadenopathy. Gallbladder minus pancreas and bilateral adrenal glands are unremarkable. Patient stool study was negative. Patient underwent regular scheduled dialysis. Patient has only agreed to undergo dialysis 2 times a week instead of 3
times daily weekly. He understands the risk of decreasing with dialysis leading to complication, cardiac arrest and . Patient abdominal pain nausea vomiting resolved. Patient diet was advanced. Patient was tolerating diet. Patient was eval
by physical and Occupational Therapy. Patient blood pressure was stable. Patient be discharged home with VN.
Discharge Plan
-
Patient Disposition: Home with Home Care
Discharge Diagnosis/Procedures: Acute viral gastroenteritis
Dehydration
Condition: Fair
Diet: 2 Gram Sodium and Restrict fluids to 48 oz
Activity: With assistance and As tolerated
Driving Restrictions: Not until seen by your Dr
Blood Work: Recommend CBC at your next dialysis session.
Other Services: [facility]
Referrals:
Jose Tamez MD [Family Provider] - in less than 1 week
Prescriptions:
Continued
Eliquis 2.5 MG tablet
2.5 mg PO BID Qty: 60 0RF
atorvastatin 80 MG tablet
80 mg PO DAILY
tamsulosin 0.4 MG capsule
0.4 mg PO BID
clopidogrel 75 mg Tablet
75 mg PO DAILY Qty: 30 0RF
pantoprazole 40 mg Tablet,Delayed Release (Dr/Ec)
40 mg PO DAILY Qty: 30 0RF
amlodipine 5 mg tablet
5 mg PO DAILY Qty: 30 11RF
melatonin 3 mg Tablet
3 mg PO HS PRN (Reason: sleep)
lorazepam 0.5 mg Tablet
0.5 mg PO TID PRN (Reason: anxiety)
Patient Comments:
01/26/2024, pt. filled this med. on 12/11/2023 for 60 tablets according to PDMP.
temazepam 15 mg Capsule
15 mg PO HS
Patient Comments:
01/26/2024, pt. filled this med. on 12/12/2023 for 90 capsules according to PDMP.
furosemide 80 mg Tablet
80 mg PO BID
losartan 25 mg Tablet
25 mg PO DAILY
cyanocobalamin (vitamin B-12)
1 tab PO TUSA@0800
carvedilol [Coreg] 6.25 mg tablet
6.25 mg PO BID Qty: 90 3RF
acetaminophen [Tylenol] 325 mg Tablet
975 mg PO DAILYPRN PRN (Reason: mild pain)
loperamide 2 mg Capsule
4 mg PO Q2HPRN PRN (Reason: diarrhea)
Discharge Orders:
Discharge Patient (As Directed); Ordered 01/29/24
Ordered By: Eduardo Guzman
Discharge Date and Time
Discharge Date/Time: 01/29/24 11:25
--- NOTE | 2024-01-29 10:31 | W.PN.NEPH.PH ---
Today's Communication / Plan
-
- for discharge
Assessment/Plan
-
Assessment:
Acute enteritis likely viral with Volume depletion 2/2 to diarrhea
Status post RCA stent on 11/26/23
ESRD ([facility]Sa 3hr) [facility] in [place]
Diarrhea chronic
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
Hypertension
Atrial fibrillation
BPH
Anemia of CKD
CAD/CABG 2016
Cerebrovascular disease
TIA 2002
History ESBL Klebsiella pneumoniae UTI
Gout
Medical noncompliance (allows only two 3-hour HD treatments weekly)
Plan:
A/w acute onset of diarrhea 2days ago, CT noted enteritis
felt viral in nature-cont supportive care s/p 1.25 lit NS in ER
BP are stable back on home meds
likely for discharge today, next HD on Friday
high dose ROB for anemia
He typically does Friday and Friday 3hr HD only and would not allow anymore than this and he is well aware of under dialysis and its complication-reviewed in the past many times
-
-
Date of Service: January 29, 2024
CC / HPI / ROS
-
Chief Complaint:
ESRD on HD
History of Present Illness:
enteritis, continues with diarrhea
Review of Systems:
denies complaints.
Labs
-
Labs:
WBC 3.8 10^3/uL (4.8-10.8) L 01/29/24 04:20
RBC 2.55 10^6/uL (4.70-6.10) L 01/29/24 04:20
Hgb 7.9 g/dL (13.0-18.0) L 01/29/24 04:20
Hct 24.2 % (39.0-52.0) L 01/29/24 04:20
Plt Count 143 10^3/uL (130-400) 01/29/24 04:20
Sodium 136 mmol/L (135-145) 01/29/24 04:20
Potassium 4.0 mmol/L (3.5-5.1) 01/29/24 04:20
Chloride 97 mmol/L (98-107) L 01/29/24 04:20
Carbon Dioxide 27 mmol/L (22-30) 01/29/24 04:20
BUN 42 mg/dl (9-20) H 01/29/24 04:20
Creatinine 7.6 mg/dL (0.7-1.3) H* 01/29/24 04:20
eGFR 6.51 01/29/24 04:20
Glucose 122 mg/dl (70-99) H 01/29/24 04:20
Calcium 7.7 mg/dl (8.4-10.2) L 01/29/24 04:20
Albumin 3.4 g/dl (3.5-5.0) L 01/29/24 04:20
Physical Exam
-
Vital Signs:
Vital Signs
Temp Pulse Resp BP Pulse Ox
97.7 F 64 12 162/59 99
01/29/24 07:55 01/29/24 08:02 01/29/24 07:55 01/29/24 08:02 01/29/24 07:55
Cardiovascular:: Regular rate and rhythm
Respiratory:: Bilateral: Coarse
Lung Excursion:: Normal
Abdomen:: Nontender and Soft
Bowel Sounds:: Normal
Extremity Edema:: None: Bilateral:
Escobar Catheter: No
--- NOTE | 2024-01-29 13:26 | VNURNOTE ---
[facility] resumption of care completed in [facility] after review of chart and discussion with patient by phone.
Patient is in agreement with having [facility].
Patient confirmed having [facility] contact number.
--- NOTE | 2024-01-29 13:51 | CM ---
Patient has been discharged to home with no additional skilled services. Patient is walking in hallways independently. Daughter to transport home.
== END 2024-01-29 11:25 | disposition home health service (06) | DRG 391 ==
LOC: 2 NORTH 23:26
PROVIDERS: Clinical Nurse Specialist Family Health; ADMITTING PHYSICIAN Hospitalist; ATTENDING PHYSICIAN Hospitalist; CONSULT PHYSICIAN Internal Medicine; EMERGENCY PHYSICIAN Emergency Medicine; FAMILY PHYSICIAN Family Medicine
PROC: 5A1D70Z Performance of Urinary Filtration, Intermittent, Less than 6 Hours Per Day (ICD-10-PCS; 2024-01-27)
DX: A08.4 Viral intestinal infection, unspecified (principal); N18.6 End stage renal disease; I12.0 Hypertensive chronic kidney disease with stage 5 chronic kidney disease or end stage renal disease; I69.354 Hemiplegia and hemiparesis following cerebral infarction affecting left non-dominant side; E86.0 Dehydration; K57.30 Diverticulosis of large intestine without perforation or abscess without bleeding; E78.00 Pure hypercholesterolemia, unspecified; I48.0 Paroxysmal atrial fibrillation; D63.1 Anemia in chronic kidney disease; E11.22 Type 2 diabetes mellitus with diabetic chronic kidney disease; I25.10 Atherosclerotic heart disease of native coronary artery without angina pectoris; F41.9 Anxiety disorder, unspecified; I25.2 Old myocardial infarction; Z79.02 Long term (current) use of antithrombotics/antiplatelets; Z91.158 Patient's noncompliance with renal dialysis for other reason
CPT/HCPCS: 74177; 80053; 84484; 85025; 85610; 85730; 87045; 87046; 87070; 87324; 87427; 87449; 87798; 89055; 93005; 96374; 97530; 99285; G0257; P9047; Q5106; Q9967

== ENCOUNTER 2024-08-14 05:50 | Inpatient (IN) | payer OTHER, SELFPAY ==
[2024-08-14] VITALS (31 sets, daily range): BP systolic 149–197; BP diastolic 57–83; BMI 29.0
--- NOTE | 2024-08-14 02:04 | ED.GENMED ---
History of Present Illness
<BRIAN Sow - Last Filed: 08/14/24 03:51>
General
Chief Complaint: Cardiac Symptoms
Source: patient
Time Seen by Provider: 08/14/24 02:02
Nursing documentation reviewed up to this point in time: agreed with
History of Present Illness
History of Present Illness:
Patient is an 83 year old male with a PMH of afib CAD HTN HLD ESRD CVA and previous LA with CABG ans stent presents to the ED with complaints of chest pain x 5 days. Patient said he lost his balance and had a fall on Friday and now reports with left
sided weakness and chest pain. He denies hitting his head. He described the chest pain as a tight pressure and rates it a 5/10. He states it is worse with mild activity and the pain comes and goes. While talking to him he did not have any chest
pain. Patient does not remember if the pain was the same as his anginal pain in November. The weakness is on the whole left side of his body and describes it as hard to move around and feels unsteady. He drove himself to the ED today. He also admits
to mild sob which had the same onset as the chest pain. He denies fever light headedness headache change in weight.
Patient currently takes Eliquis and clopidogrel for clot prevention. He was admitted to the hospital in November for an NSTEMI which resulted in an RCA stent. He was also in January for abdominal problems. He had a stroke in 2016. Patient denies any
alcohol and is a former smoker who quit 70 years ago. His EKG is similar to the one in January with NSR with some PACs and a right bundle branch block.
Past History
<BRIAN Sow - Last Filed: 08/14/24 03:51>
Past History
ED Past Medical History: Arrthythmia (Atrial fib), CAD, CVA (Left sided weakness slight), HTN, Hypercholesterolemia, NIDDM, LA, Renal failure (Dialysis Friday and Friday) and Other (TIA 2003, Diverticulosis, Anemia)
ED Past Surgical History: Cardiac (Cardiac stents, LINK, CABG) and Other (Cataracts, Left arm fistula)
Social History
Tobacco: Former smoker
Alcohol: None
Personal:
Living: alone
Employment: Retired
Review of Systems
<Shekhar Castro [facility] - Last Filed: 08/14/24 03:51>
Review of Systems
Allergies reviewed?: Yes
Constitutional: Reports no symptoms
Respiratory: Reports trouble breathing
Cardiac: Reports chest pain
ABD/GI: Reports no symptoms
Neurological: Reports weakness (left sided)
Phy Exam
<Shekhar Castro [facility] - Last Filed: 08/14/24 03:51>
General Physical Exam
General Presentation: mild distress
General age: appears stated age
General Habitus: elderly
General Mental: alert
Cardiovascular Exam
Cardiovascular Exam: no edema, no gallop, no JVD and occasionally irregular (PAC)
Pulmonary Exam
Pulmonary Exam: lungs clear, no respiratory distress, no rales, chest non tender, no crackles, no rhonchi, no stridor, no wheezing and no cough
NIH Stroke Score
Level of Consciousness: 0 - Alert
LOC questions: 0-Answers both correctly
LOC Commands: 0-Performs both correctly
Best Gaze: 0-Normal
Visual Rooney: 0=Normal, no visual loss
Facial palsy: 0=Normal, symmetrical
Motor - Right Arm: 0=No drift 10 seconds
Motor - Left Arm: 0=No drift 10 seconds
Motor - Right Le-No drift 5 seconds
Motor - Left Le-No drift 5 seconds
Limb Ataxia: 0-Absent
Sensation: 0-Normal
Best Language: 0-No aphasia
Dysarthria: 0-Normal
Extinction and Inattention: 0-No abnormality
Total Score:: 0
Sensory
Sensory Exam: intact (sensation intact to light touch in upper and lower extremities b/l)
Cerebellar
Cerebellar Function: normal heel to louis
<La Sheets DO - Last Filed: 08/14/24 03:50>
NIH Stroke Score
Total Score:: 0
Scores
<ST JuanjosePA - Last Filed: 08/14/24 03:51>
NIH Stroke Score
Total Score:: 1
Heart Failure Risk
HF Risk Score: 5
Admission Status: VERY HIGH RISK 39.8% Consider admission to hospital
Heart Score for Chest Pain Patients
Heart Score for Chest Pain Patients: 8
Heart Score Risk: 72.7 % MACE over next 6 weeks
<La Sheets DO - Last Filed: 08/14/24 03:50>
NIH Stroke Score
Level of Consciousness: 0 - Alert
LOC Questions: 0-Answers both correctly
LOC Commands: 0-Performs both correctly
Best Horizontal Gaze: 0-Normal
Visual Rooney: 1=Partial hemianopia
Facial Palsy: 0=Normal, symmetrical
Motor - Right Arm: 0=No drift 10 seconds
Motor - Left Arm: 0=No drift 10 seconds
Motor - Right Le-No drift 5 seconds
Motor - Left Le-No drift 5 seconds
Limb Ataxia: 0-Absent
Sensation: 0-Normal
Best Language: 0-No aphasia
Dysarthria: 0-Normal
Extinction and Inattention: 0-No abnormality
Total Score:: 1
Thrombolytic Contraindication
Inclusion and Exclusion criteria reviewed: Yes
Reasons for NON-Tx with Thrombolytics ABSOLUTE Exclusions: Greater than 4.5 hrs from onset of sxs and Patient taking oral anticoagulant and last dose within 48 hours
IAT Contraindications: NIHSS < 6
Heart Failure Risk
Heart Failure Risk Score: Yes
History of Stroke or TIA: Yes
History of intubation for respiratory distress: No
Heart rate on ED arrival >/= 110: No
SaO2 <90% on arrival on room air: No
HR >/=110 during 3min walk test (or too ill to perform test): Yes
ECG has acute ischemic changes: No
Urea >/=12mmol/L (BUN 33.6mg/dL): Yes
Serum CO2>/=35mmol/L: No
Troponin I or T elevated to LA Level (0.4mg/dL): No
NT-proBNP >/=5,000ng/L (5,000pg/ml): Yes
HF Risk Score: 5
Admission Status: VERY HIGH RISK 39.8% Consider admission to hospital
Heart Score for Chest Pain Patients
STEMI patient?: No
History: Highly Suspicious
ECG: Nonspecific Repolarization
Age: >/= 65 years
Risk Factors: >/= 3 Risk Factors or History of CAD
Troponin: >1 - <3 x Normal Limit
Heart Score for Chest Pain Patients: 8
Heart Score Risk: 72.7 % MACE over next 6 weeks
Course
<BRIAN Sow - Last Filed: 08/14/24 03:51>
Orders/Labs/Results
Orders:
Orders
08/14/24 01:56
EKG [Electrocardiogram (*1)] Urgent
Reason for Study: Chest Pain
EKG- Treatment ONCE
08/14/24 02:09
CR Chest - 2 Views Urgent
Comment:
Reason For Exam: CP, SOB
08/14/24 02:10
CT Head W/o Iv Contrast Urgent
Comment:
Reason For Exam: FALL 1 WEEK AGO, L SIDED WEAKNESS
08/14/24 02:40
Complete Blood Count/With Diff Urgent
Comprehensive Metabolic Panel Urgent
NT-proBNP Urgent
PTT Urgent
Troponin I Urgent
08/14/24 03:10
Aspirin Chewable [Low Strength Aspirin] 324 mg PO NOW STA
08/14/24 03:38
Furosemide [Lasix] 100 mg IV NOW STA
Nitroglycerin Ointment [Nitro-Bid] 1 inch TOPICAL NOW STA
Abnormal Lab Results
08/14/24
02:40
WBC 3.6 L 10^3/uL
(4.8-10.8)
RBC 3.17 L 10^6/uL
(4.70-6.10)
Hgb 9.9 L g/dL
(13.0-18.0)
Hct 30.6 L %
(39.0-52.0)
MCV 96.5 H fL
(80.0-94.0)
MCH 31.2 H pg
(27.0-31.0)
MCHC 32.4 L g/dL
(33.0-37.0)
RDW 15.0 H %
(11.5-14.5)
MPV 11.2 H fL
(7.4-10.4)
Abs Immat Gran (auto) 0.3 H 10^3/uL
(0-0.05)
Absolute Lymphs (auto) 0.6 L 10^3/uL
(1.2-3.4)
Immature Gran % 9.1 H %
(0-0.5)
Lymphocytes % 16.0 L %
(20.5-51.1)
Monocytes % 16.0 H %
(1.7-9.3)
APTT 42.9 H Sec
(23.4-35.0)
Sodium 146 H mmol/L
(135-145)
Chloride 108 H mmol/L
(98-107)
Carbon Dioxide 21 L mmol/L
(22-30)
BUN 74 H mg/dl
(9-20)
Creatinine 7.1 H* mg/dL
(0.7-1.3)
Glucose 106 H mg/dl
(70-99)
Calcium 7.9 L mg/dl
(8.4-10.2)
Troponin I 0.063 H* ng/ml
08/14/24 02:40
08/14/24 02:40
Vital Signs
Initial and Last Documented VS:
Initial Vital Signs
Temp Pulse BP Pulse Ox
98.0 F 88 197/73 96
08/14/24 02:02 08/14/24 02:02 08/14/24 02:02 08/14/24 02:02
Last Documented Vital Signs
Temp Pulse Resp BP Pulse Ox
98.0 F 77 26 181/74 93
08/14/24 02:02 08/14/24 03:34 08/14/24 03:34 08/14/24 03:34 08/14/24 03:34
<La Sheets, DO - Last Filed: 08/14/24 03:50>
Orders/Labs/Results
Orders:
Orders
08/14/24 01:56
EKG [Electrocardiogram (*1)] Urgent
Reason for Study: Chest Pain
EKG- Treatment ONCE
08/14/24 02:09
CR Chest - 2 Views Urgent
Comment:
Reason For Exam: CP, SOB
08/14/24 02:10
CT Head W/o Iv Contrast Urgent
Comment:
Reason For Exam: FALL 1 WEEK AGO, L SIDED WEAKNESS
08/14/24 02:40
Complete Blood Count/With Diff Urgent
Comprehensive Metabolic Panel Urgent
NT-proBNP Urgent
PTT Urgent
Troponin I Urgent
08/14/24 03:10
Aspirin Chewable [Low Strength Aspirin] 324 mg PO NOW STA
08/14/24 03:38
Furosemide [Lasix] 100 mg IV NOW STA
Nitroglycerin Ointment [Nitro-Bid] 1 inch TOPICAL NOW STA
Abnormal Lab Results
08/14/24
02:40
WBC 3.6 L 10^3/uL
(4.8-10.8)
RBC 3.17 L 10^6/uL
(4.70-6.10)
Hgb 9.9 L g/dL
(13.0-18.0)
Hct 30.6 L %
(39.0-52.0)
MCV 96.5 H fL
(80.0-94.0)
MCH 31.2 H pg
(27.0-31.0)
MCHC 32.4 L g/dL
(33.0-37.0)
RDW 15.0 H %
(11.5-14.5)
MPV 11.2 H fL
(7.4-10.4)
Abs Immat Gran (auto) 0.3 H 10^3/uL
(0-0.05)
Absolute Lymphs (auto) 0.6 L 10^3/uL
(1.2-3.4)
Immature Gran % 9.1 H %
(0-0.5)
Lymphocytes % 16.0 L %
(20.5-51.1)
Monocytes % 16.0 H %
(1.7-9.3)
APTT 42.9 H Sec
(23.4-35.0)
Sodium 146 H mmol/L
(135-145)
Chloride 108 H mmol/L
(98-107)
Carbon Dioxide 21 L mmol/L
(22-30)
BUN 74 H mg/dl
(9-20)
Creatinine 7.1 H* mg/dL
(0.7-1.3)
Glucose 106 H mg/dl
(70-99)
Calcium 7.9 L mg/dl
(8.4-10.2)
Troponin I 0.063 H* ng/ml
08/14/24 02:40
08/14/24 02:40
Vital Signs
Initial and Last Documented VS:
Initial Vital Signs
Temp Pulse BP Pulse Ox
98.0 F 88 197/73 96
08/14/24 02:02 08/14/24 02:02 08/14/24 02:02 08/14/24 02:02
Last Documented Vital Signs
Temp Pulse Resp BP Pulse Ox
98.0 F 77 26 181/74 93
08/14/24 02:02 08/14/24 03:34 08/14/24 03:34 08/14/24 03:34 08/14/24 03:34
<BRIAN Sow - Last Filed: 08/14/24 03:51>
MDM/Problems Addressed
Differential Diagnosis Includes:
unstable angina, CVA, NSTEMI, stable angina
MDM/Problems Addressed:
order blood work cardiac enzymes CT head and cxr, give baby aspirin 349a update troponin above baseline at 0.063 creatinine 7.1, give IV dose of lasix and nitro, admit
<BRIAN Sow - Last Filed: 08/14/24 03:51>
*Radiology
Radiology exam reviewed: preliminary read by ED provider (CT looked similar to previous, XR increased interstitial markings, infiltrate in posterior lobe)
*Pulse Oximetry
Patient hypoxic: no
*EKG
Interpreted by ED Provider?: Yes
Interpretation: abnormal
Comparison EKG: no changes
Rate: normal
Rhythm: sinus and PAC's
Gerald: normal axis
QRS Pattern: right bundle branch block
Ischemia: non-specific ST changes
*Librarian Head Interpretation
Rate: normal
Interpretation: normal
Rhythm: sinus
*Critical Care Note
Total Time (30-74mins, 75-104mins- exclusive of procedures): Not Applicable
<La Sheets DO - Last Filed: 08/14/24 03:50>
*Radiology
Radiology exam reviewed: radiology read reviewed (CT of the head shows chronic findings, unchanged from previous.)
ED Attending Note
<BRIAN Sow - Last Filed: 08/14/24 03:51>
-
Portions of this chart may have been created with voice recognition software.� Occasional wrong word or��sound alike� substitutions may have occurred due to the inherent limitations of voice recognition software.
<La Sheets DO - Last Filed: 08/14/24 03:50>
ED Attending Note
Patient seen and examined by attending physician: Yes
I performed the substantive portion of visit, reviewed & personally made and approve the management plan that is documented in note by myself or BRYAN.: Yes
ED Attending Note:
This is an 83-year-old gentleman with extensive past medical history including end-stage renal disease, dialysis dependent twice weekly, hypertension, hyperlipidemia, [id number]-[id number] diabetes, CAD with prior LA 2017 as well as November 2023.
Several previous cardiac interventions/stents, most recently November 2023 when he suffered a non-STEMI. He has history of CVA 2017 with chronic right eye vision loss. History of PAF maintained on Eliquis as well as Plavix.
He has driven himself to the ED tonight with concern for intermittent chest pain that began a week ago, described as a pressure, heaviness in nature, questionably worse with activity and also associated with some dyspnea on exertion. Chest pain was
worse tonight prompting ED visit. Currently chest pain-free.
He also notes history of suffering a fall 6 days ago. He denies head injury, denies loss of consciousness but since that fall on Friday he complains of some left-sided weakness.
Although he has driven himself to the ED he was noted by triage nurse to be significantly unsteady on his feet requiring much assistance to get into and then out of wheelchair and much assistance to transition to stretcher.
GENERAL: 83-year-old gentleman appears his stated age, appears mildly debilitated. Seems mildly confused with recent events, unable to elaborate with current symptoms/HPI.
EYE: pupils equal and reactive. anicteric. Mild masklike facies noted. No facial asymmetry.
NECK: Supple, nontender, no meningismus, no significant adenopathy.
ENT: posterior pharynx is clear, oral mucosa is moist. No rhinorrhea..
CARDIAC: Regular rate and rhythm. 2/6 holosystolic murmur left sternal border.
LUNGS: Very mild resting tachypnea noted. Fine bibasilar rales otherwise clear to auscultation.
ABDOMEN: Soft, nondistended, without focal tenderness, normoactive BS.
NEUROLOGICAL: Alert and oriented x3, no focal/lateralizing weakness noted. Very mild cogwheel rigidity noted of extremities. Masklike facies noted. No evidence of pill-rolling/resting tremor.
SKIN: Warm and dry, normal color, skin intact. No rash.
MUSCULOSKELETAL: No C/C/E. peripheral pulses are full and equal b/l. No palpable tenderness. AV graft left upper arm.
PSYCH: Mildly blunted affect. Cooperative.
Concern for ACS/unstable angina, non-STEMI. Concern for CVA, intracranial injury/bleeding related to fall, concern for electrolyte abnormality, CHF, pneumonia.
EKG shows no evidence of STEMI, overall similar and unchanged from EKG January 2024.
Currently chest pain-free.
Will plan for 324 mg chewable aspirin but will await CT of the head findings to ensure there is no acute intracranial bleeding.
Labs are pending.
Patient is significantly unsteady on his feet and is at significant risk for recurrent falls. As he is chronically maintained on Eliquis, Plavix, significant risk for recurrent falls as well as significant concern for CVA, significant concern for
unstable angina, he will require acute hospitalization for further evaluation/treatment of these potential life-threatening conditions.
08/14/2024 0330 AM
Patient continues to deny chest pain. He is noted to have very mild resting tachypnea but currently denies shortness of breath.
Chest x-ray consistent with CHF and BNP is markedly elevated greater than 27,000 which is much higher from previous results.
CT of the head unchanged from previous, no evidence of acute traumatic findings nor acute CVA.
Troponin 0.063 which is higher than his baseline of 0.028�0.03.
He is chronically maintained on Lasix 80 mg twice daily and does produce urine. Will give an IV dose of Lasix now.
Moderate systolic hypertension persists. Will add Nitropaste.
Chronically maintained on Plavix as well as Eliquis. PTT is pending. Due to concern for ACS, could consider initiation of IV heparin but will discuss with hospitalist.
Discharge Plan
Departure
Patient Disposition: Admit
Date of Disposition: 08/14/24
Time of Disposition: 03:42
Admit to: Telemetry
Admit to doctor: Aliza
Presentation/result/management discussed w/ accepting MD/DO: Hospitalist
Condition: Serious
Discharge Problem:
ACS (acute coronary syndrome), Acute on chronic diastolic CHF (congestive heart failure), weakness r/o CVA
Prescriptions:
No Action
Eliquis 2.5 MG tablet
2.5 mg PO BID Qty: 60 0RF
atorvastatin 80 MG tablet
80 mg PO DAILY
tamsulosin 0.4 MG capsule
0.4 mg PO BID
clopidogrel 75 mg Tablet
75 mg PO DAILY Qty: 30 0RF
pantoprazole 40 mg Tablet,Delayed Release (Dr/Ec)
40 mg PO DAILY Qty: 30 0RF
amlodipine 5 mg tablet
5 mg PO DAILY Qty: 30 11RF
melatonin 3 mg Tablet
3 mg PO HS PRN (Reason: sleep)
lorazepam 0.5 mg Tablet
0.5 mg PO TID PRN (Reason: anxiety)
Patient Comments:
01/26/2024, pt. filled this med. on 12/11/2023 for 60 tablets according to PDMP.
temazepam 15 mg Capsule
15 mg PO HS
Patient Comments:
01/26/2024, pt. filled this med. on 12/12/2023 for 90 capsules according to PDMP.
furosemide 80 mg Tablet
80 mg PO BID
losartan 25 mg Tablet
25 mg PO DAILY
cyanocobalamin (vitamin B-12)
1 tab PO TUSA@0800
carvedilol [Coreg] 6.25 mg tablet
6.25 mg PO BID Qty: 90 3RF
acetaminophen [Tylenol] 325 mg Tablet
975 mg PO DAILYPRN PRN (Reason: mild pain)
loperamide 2 mg Capsule
4 mg PO Q2HPRN PRN (Reason: diarrhea)
Referrals:
Jose Tamez MD [Family Provider] -
Interventions
Interventions:
*Risk Screen - Suicide Last Done: 08/14/24 02:02
*General Assessment Last Done: 08/14/24 02:02
*Neglect/Abuse Screening Last Done: 08/14/24 02:02
ED- Fall Risk Assessment Last Done: 08/14/24 02:23
*ED COVID-19 Vaccine History Last Done: 08/14/24 02:02
ED- Pulmonary Assessment Last Done: 08/14/24 02:23
ED- Cardiac Assessment Last Done: 08/14/24 02:23
Discharge Date and Time
Print Language: [place]
[2024-08-14 03:05] LABS: Hematocrit 30.6 % (39.0-52.0); Hemoglobin 9.9 g/dL (13.0-18.0); Mean Corp Hgb Conc. 32.4 g/dL (33.0-37.0); Mean Corpuscular Hgb 31.2 pg (27.0-31.0); Mean Corpuscular Volume 96.5 fL (80.0-94.0); Mean Platelet Volume 11.2 fL (7.4-10.4); Platelet Count 143 10^3/uL (130-400); Red Blood Cell Count 3.17 10^6/uL (4.70-6.10); White Blood Cell Count 3.6 10^3/uL (4.8-10.8)
[2024-08-14 03:16] LABS: ALT (SGPT) 12 U/L (0-50); AST (SGOT) 17 U/L (17-59); Albumin 4.2 g/dl (3.5-5.0); Alkaline Phosphatase 79 U/L (38-126); Blood Urea Nitrogen 74 mg/dl (9-20); Calcium 7.9 mg/dl (8.4-10.2); Carbon Dioxide 21 mmol/L (22-30); Chloride 108 mmol/L (98-107); Estimated Creatinine Clearance 8 ml/min; Glucose 106 mg/dl (70-99); Potassium 4.9 mmol/L (3.5-5.1); Sodium 146 mmol/L (135-145); Total Bilirubin 0.4 mg/dl (0.2-1.3); Total Protein 6.4 g/dl (6.3-8.2); eGFR 7.06
[2024-08-14 03:26] LABS: APTT 42.9 Sec (23.4-35.0)
[2024-08-14 03:28] LABS: % Basophils 0.3 % (0-2); % Eosinophils 3.9 % (0-6); % Immature Granulocytes 9.1 % (0-0.5); % Neutrophils 54.7 % (42.2-75.2); Absolute Eosinophils 0.1 10^3/uL (0-0.7); Absolute Immature Granulocytes 0.3 10^3/uL (0-0.05); Absolute Lymphocytes 0.6 10^3/uL (1.2-3.4); Absolute Monocytes 0.6 10^3/uL (0.1-0.6); NT-proBNP > 27000 pg/ml; Nucleated Red Blood Cells % 0 % (-); Troponin I 0.063 ng/ml
[2024-08-14] MEDS: LASIX 100 MG IV (03:48)
[2024-08-14] MEDS: LOW STRENGTH ASPIRIN 324 MG PO (03:55)
[2024-08-14] MEDS: NITRO-BID 1 INCH TOPICAL (03:56)
--- NOTE | 2024-08-14 04:10 | HPS.HSE ---
Family Physician
-
Family Physician: Jose Tamez
Chief Complaint
-
Chest Pressure
History of Present Illness
This is an 83-year-old male with past medical history of CAD status post non-ST elevation [place] in November with status post PCI to the RCA. He is also status post CABG in 2017 presenting to the emergency department with chest pressure that
started this evening.
Patient has end-stage renal disease on hemodialysis Tuesdays and Saturdays. Patient reported that last week Friday he felt he had a stroke. This is because he had a fall. Patient denies any weakness numbness tingling. He denies any speech
difficulty. He denies any facial asymmetry. He denies having any headache. He denies hitting his head. There was no loss of consciousness. He had felt uneasy since then due to concern for stroke. He has had a prior stroke. He is on Plavix and
Eliquis currently.
He went to his usual dialysis on Friday without anybody noticing any symptoms.
Patient reported that today he was plan to go to bed when he noticed a 5 out of 10 chest pressure in the substernal area. He denies any radiation. He denies any nausea or vomiting. He had no diaphoresis. He denies any numbness or tingling to his
upper or lower extremities. He reports mild shortness of breath. Stated last dialysis was Friday. Patient denies any acute weight gain or weight loss. He denies any lower extremity swelling. He denies recent exertional dyspnea orthopnea or PND.
On arrival in the emergency department he was noted to be unsteady on his feet especially with transfers. Otherwise he was hypertensive to 181/74, afebrile with a pulse of 72. He was satting at 92% on room air. ECG shows sinus rhythm at a rate of
89 with a known right bundle branch. It is unchanged from his recent EKG except PACs. [place] trop[place] 0[place] [address]. Chest x-ray shows mild pulmonary edema to me. There was no cardiomegaly. CBC was unremarkable. Electrolytes consistent
with ESRD. Sodium 146 potassium 4.9 bicarb 21. BUN 75 creatinine 7.1.
Medical History
Past Medical History
Past Medical History: Reports Arrhythmia (Atrial fibrillation), CAD (CAD s/p CABG 2016. PCI to RCA Nov 2023), CVA, HTN and Renal Failure (ESRD on HD via LUE AVF)
Past Surgical History: Reports Cardiac (CABG 2016)
Social History
Tobacco: Non-smoker
Alcohol: None
Drug: None
Personal:
Living: Alone
Employment: Retired
Family History
Family History: Not pertinent
Allergies / Home Medications
Allergies reflects when Allergies were last updated in [facility].
Home Medications with original date entered in [facility]
Allergy/Medication List:
Allergies
Allergy/AdvReac Type Severity Reaction Status Date / Time
No Known Allergies Allergy Verified 08/14/24 02:02
Home Medications
apixaban 2.5 mg tablet (Eliquis) 2.5 mg PO BID blood thinner #60 tabs 05/12/21
atorvastatin 80 mg tablet 80 mg PO DAILY High cholesterol 01/03/22
tamsulosin 0.4 mg capsule 0.4 mg PO BID Urinary issue 02/08/22
clopidogrel 75 mg tablet 75 mg PO DAILY #30 tabs 12/02/23
pantoprazole 40 mg tablet,delayed release 40 mg PO DAILY #30 tabs 12/02/23
amlodipine 5 mg tablet 5 mg PO DAILY Blood pressure #30 tabs 12/16/23
cyanocobalamin (vitamin B-12) 1 tab PO TUSA@0800 Supplement 01/06/24
furosemide 80 mg tablet 80 mg PO BID Fluid Retention/Swelling 01/06/24
lorazepam 0.5 mg tablet 0.5 mg PO TID PRN anxiety 01/06/24
losartan 25 mg tablet 25 mg PO DAILY Blood Pressure 01/06/24
melatonin 3 mg tablet 3 mg PO HS PRN sleep 01/06/24
temazepam 15 mg capsule 15 mg PO HS SLEEP 01/06/24
carvedilol 6.25 mg tablet (Coreg) 6.25 mg PO BID #90 tabs 01/09/24
acetaminophen 325 mg tablet (Tylenol) 975 mg PO DAILYPRN PRN mild pain 01/26/24
loperamide 2 mg capsule 4 mg PO Q2HPRN PRN diarrhea 01/26/24
Review of Systems
-
History Source: Patient
Constitutional: Reports No Symptoms
EENT: Reports No Symptoms
Respiratory: Reports Trouble Breathing
Cardiac: Reports Chest Pain
Abdomen/GI: Reports No Symptoms
: Reports No Symptoms
Musculoskeletal: Reports No Symptoms
Skin: Reports No Symptoms
Neurological: Reports Dizzy
Endocrine: Reports No Symptoms
Hematologic/Lymphatic: Reports No Symptoms
Psych: Reports No Symptoms
Physical Exam
Vital Signs
Vital Signs
Temp Pulse Resp BP Pulse Ox
98.0 F 80 28 186/74 92
08/14/24 02:02 08/14/24 04:00 08/14/24 04:00 08/14/24 04:00 08/14/24 04:00
Physical Exam
General: Well Developed, Well Nourished and Pain (5/10 chest pain)
HEENT: NormoCephalic, Anicteric, Moist mucous membranes, Atraumatic, PERRLA and [place] Conjunctivae
Respiratory: Clear and Non Labored Respirations
Cardiac: S1/S2 and Regular Rhythm
Breast: Deferred by me
GI: Soft, Non Tender, Non Distended and Normal Bowel Sounds
Rectal: Deferred by Provider
Genito-urinary: Deferred by me
Musculoskeletal: No Clubbing, No Cyanosis, No Edema and Other (LEFT UE AVF)
Skin: Warm
Neuro: AO x 3, No Motor Deficits, Cranial Nerves Intact, No Sensory Deficits and DTR's Intact & Symmetrical
Hematologic/Lymphatic: No Lymphadenopathy
Psych: Calm
Laboratory Results
-
08/14/24 02:40
08/14/24 02:40
Laboratory Results
APTT 42.9 Sec (23.4-35.0) H 08/14/24 02:40
Total Bilirubin 0.4 mg/dl (0.2-1.3) 08/14/24 02:40
AST 17 U/L (17-59) 08/14/24 02:40
ALT 12 U/L (0-50) 08/14/24 02:40
Alkaline Phosphatase 79 U/L (38-126) 08/14/24 02:40
Troponin I 0.063 ng/ml H* 08/14/24 02:40
Data Reviewed
-
Diagnostic Radiology: Image Personally Visualized and interpreted
Medical Tests (Nuc Med, Echo, EKG etc): Image Personally Visualized and interpreted
Lab Data: Labs Reviewed by me
Old Records: Reviewed
Impression/Plan
-
IMPRESSION:
83 M CAD s/p CABG and recent PCI to RCA in November on plavix and eliquis presenting to ED with substernal chest pressure 5/10 for about 3 - 4 hours prior to ED arrival. ECG is non-ischemic. Trop is 0.063, up from 0.035. Hypertensive in ED with
elevated JVD, no peripheral edema, mild pulm edema on Xray suggestive of volume overload. Suspect symptoms may be secondary to HTN and volume overload vs ACS. Patient was seen in December for chest pressure and mild trop elevation to 0.035 after 4
hours of CP and resolution. Patient was evaluated by instructor ground services. He underwent left heart catheterization with reassuring finding of patent recent stent. His chest discomfort felt to be reflection of angina secondary to uncontrolled hypertension
and elevated Volume. Patient was advised to comply with hemodialysis schedule. Pain was reproducible with palp but no history to suggest msk pain.
PLAN:
1. Chest pain - Chest pressure 5/10 x 4 hours. Still persistent without ischemia on ECG. Trop 0.063. Concern for ACS versus hypertensive urgency and volume overload.
- admit to telemetry
- given asa 324 w/o improvement
- given sl-ntg x 2 in ED, mild improvement in pain, hold off on heparin, repeat trop 2 hrs unchanged.
- continue plavix, eliquis, statin carvedilol
- given lasix 100mg in ED as patient is not anuric
- cardiology consult
2. HTN - Moderately hypertensive at 180/70. Possible but less likely etiology of discomfort
- BP control improved to 163 with ntg, continue nitropaste for now
- continue carvedilol, losartan and amlodipine
- lasix given
- HD per renal
3. ESRD - Volume overload on my exam with elevated JVD. Last HD was Friday. No hypoxia. K 4.9. HCO3 21.
- fluid restriction
- IV lasix 80 bid for now
- UF per renal
- renal consult
4. AFIB - Rate controlled and on AC at home
- continue coreg
- ac with either eliquis or if trop elevation heparin gtt
5. Fall - H/O CVA with residual left sided weakness. Unwitnessed fall at home 6 days ago. Denied loss of consciousness. Did not hit head. CT head negative for acute bleed. Chronic appearing bilateral basal ganglia lacunar infarcts unchanged.
Patient unsteady on feet, felt he had a stroke. NIHSS = 0 at this time. On eliquis and plavix.
- neurochecks q6
- no TPA, on plavix and eliquis
- consider MRI to confirm stroke
- PT evaluation
DVT PPX - on AC
Code status - DNR
[2024-08-14] MEDS: NITROSTAT (SUBLINGUAL) 0.4 MG SL ×2 (04:25→05:02)
[2024-08-14 05:49] LABS: Troponin I 0.067 ng/ml
[2024-08-14] MEDS: NORVASC 5 MG PO (08:15)
[2024-08-14] MEDS: LIPITOR 80 MG PO (08:15)
[2024-08-14] MEDS: FLOMAX 0.4 MG PO ×2 (08:15→20:35)
[2024-08-14] MEDS: COZAAR 25 MG PO (08:15)
[2024-08-14] MEDS: PROTONIX 40 MG PO (08:15)
[2024-08-14] MEDS: PLAVIX 75 MG PO (08:16)
[2024-08-14] MEDS: COREG 6.25 MG PO (08:16)
[2024-08-14 10:24] LABS: INR 1.17; PT 14.8 Sec (11.4-14.6)
[2024-08-14 10:42] LABS: Troponin I 0.085 ng/ml
[2024-08-14 11:28] LABS: Troponin I 0.078 ng/ml
--- NOTE | 2024-08-14 13:54 | W.PN.UPDATE ---
Update Note
Progress Note Update
Patient seen and examined after postmidnight admission. Patient denies chest pain. Reports some shortness of breath. Vital signs stable. No acute stress, awake and alert. Regular rate and rhythm, normal S1-S2. Clear to auscultation
bilaterally. Cranial to 12 intact. Troponins minimally elevated and flat. Repeat ECG without ST changes. Will order another ECG now. Cardiology to see. Continue management as outlined in the H&P done after midnight.
--- NOTE | 2024-08-14 14:23 | W.CON.NEPH ---
Consultation
-
Date/Time Consultation Requested: 08/14/2024 11:00 AM
Date/Time Consultation Performed: 08/14/2024 215 PM
Requesting Provider: Dr. Jackson
Performing Provider: Dr. Mckeon
Reason for Consultation: End-stage renal disease
Medical History
-
Chief Complaint: End-stage renal disease
History of Present Illness:
The patient is an 83-year-old male with a past medical history of end-stage renal disease who dialyzes only on Tuesdays and Saturdays (due to noncompliance), at [facility] dialysis unit. His last dialysis was this past Friday as he
refuses to show up on . He has baseline uncontrolled hypertension due to his noncompliance with dialysis modality. He is maintained on amlodipine , losartan and carvedilol for his hypertension. He receives ROB therapy on dialysis for his
anemia of chronic kidney disease and is maintained on benzodiazepine therapy for his anxiety. He is chronically anticoagulated for paroxysmal A-fib. His past medical history also includes CAD status post non-ST elevation [place] in November with status
post PCI to the RCA. He is also status post CABG in 2017 presenting to the emergency department with chest pressure that started last evening. The Patient reported that last week Friday he felt he had a stroke. This is because he had a fall.
Patient denies any weakness numbness tingling. He denies any speech difficulty. He denies any facial asymmetry. He denies having any headache. He denies hitting his head. There was no loss of consciousness. He had felt uneasy since then due to
concern for stroke. He has had a prior stroke. He is on Plavix and Eliquis currently. Patient reported that today he was plan to go to bed when he noticed a 5 out of 10 chest pressure in the substernal area. He denies any radiation. He denies
any nausea or vomiting. He had no diaphoresis. He denies any numbness or tingling to his upper or lower extremities. He reports mild shortness of breath. Stated last dialysis was Friday. Patient denies any acute weight gain or weight loss. He
denies any lower extremity swelling. He denies recent exertional dyspnea orthopnea or PND.
On arrival in the emergency department he was noted to be unsteady on his feet especially with transfers. Otherwise he was hypertensive to 181/74, afebrile with a pulse of 72. He was satting at 92% on room air. ECG shows sinus rhythm at a rate of
89 with a known right bundle branch. It is unchanged from his recent EKG except PACs. [place] 0[place] [address]. Chest x-ray shows mild pulmonary edema. There was no cardiomegaly. CBC was unremarkable. Electrolytes consistent with
ESRD. Sodium 146 potassium 4.9 bicarb 21. BUN 75 creatinine 7.1. During by encounter with him in the emergency room he denied chest pain or shortness of breath. We were consulted for end-stage renal disease management.
Past Medical History
Status post RCA stent on 11/26/23
[facility]RD (TuSa 3hr) [facility] [place]
Diarrhea chronic
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
Hypertension
Atrial fibrillation
BPH
Anemia of CKD
CAD/CABG 2016
Cerebrovascular disease
TIA 2002
History ESBL Klebsiella pneumoniae UTI
Gout
Medical noncompliance (allows only two 3-hour HD treatments weekly)
Social History
Tobacco: Former Smoker
Alcohol: None
Family History
no ckd
Allergies / Home Medications
Allergy/AdvReac Type Severity Reaction Status Date / Time
No Known Allergies Allergy Verified 08/14/24 02:02
�Medication �Instructions �Recorded �Confirmed �Type
apixaban 2.5 mg tablet (Eliquis) 2.5 mg PO BID blood thinner #60 05/12/21 08/14/24 Rx
tabs
atorvastatin 80 mg tablet 80 mg PO DAILY High cholesterol 01/03/22 08/14/24 History
tamsulosin 0.4 mg capsule 0.4 mg PO BID Urinary issue 02/08/22 08/14/24 History
clopidogrel 75 mg tablet 75 mg PO DAILY #30 tabs 12/02/23 08/14/24 Rx
pantoprazole 40 mg tablet,delayed 40 mg PO DAILY #30 tabs 12/02/23 08/14/24 Rx
release
amlodipine 5 mg tablet 5 mg PO DAILY Blood pressure #30 12/16/23 08/14/24 Rx
tabs
cyanocobalamin (vitamin B-12) 1 tab PO TUSA@0800 Supplement 01/06/24 08/14/24 History
furosemide 80 mg tablet 80 mg PO BID Fluid 01/06/24 08/14/24 History
Retention/Swelling
lorazepam 0.5 mg tablet 0.5 mg PO TIDPRN PRN anxiety 01/06/24 08/14/24 History
losartan 25 mg tablet 25 mg PO DAILY Blood Pressure 01/06/24 08/14/24 History
temazepam 15 mg capsule 15 mg PO HSPRN PRN sleep 01/06/24 08/14/24 History
carvedilol 6.25 mg tablet (Coreg) 6.25 mg PO BID #90 tabs 01/09/24 08/14/24 Rx
acetaminophen 325 mg tablet 975 mg PO DAILYPRN PRN mild pain 01/26/24 08/14/24 History
(Tylenol)
loperamide 2 mg capsule 4 mg PO Q2HPRN PRN diarrhea 01/26/24 08/14/24 History
Review of Systems
-
History Source: Patient
All other systems: Negative unless noted
Constitutional: Other (weakness)
Hematologic/Lymphatic: Other (Left upper extremity AV fistula)
Physical Exam
Vital Signs
Vital Signs
Temp Pulse Resp BP Pulse Ox
97.6 F 74 24 177/69 96
08/14/24 11:00 08/14/24 14:00 08/14/24 14:00 08/14/24 14:00 08/14/24 14:00
Lab Results
08/14/24 02:40
08/14/24 02:40
WBC 3.6 10^3/uL (4.8-10.8) L 08/14/24 02:40
RBC 3.17 10^6/uL (4.70-6.10) L 08/14/24 02:40
Hgb 9.9 g/dL (13.0-18.0) L 08/14/24 02:40
Hct 30.6 % (39.0-52.0) L 08/14/24 02:40
Plt Count 143 10^3/uL (130-400) 08/14/24 02:40
Sodium 146 mmol/L (135-145) H 08/14/24 02:40
Potassium 4.9 mmol/L (3.5-5.1) 08/14/24 02:40
Chloride 108 mmol/L (98-107) H 08/14/24 02:40
Carbon Dioxide 21 mmol/L (22-30) L 08/14/24 02:40
BUN 74 mg/dl (9-20) H 08/14/24 02:40
Creatinine 7.1 mg/dL (0.7-1.3) H* 08/14/24 02:40
eGFR 7.06 08/14/24 02:40
Glucose 106 mg/dl (70-99) H 08/14/24 02:40
Calcium 7.9 mg/dl (8.4-10.2) L 08/14/24 02:40
Ees-E-Obfmjxojvys Pept > 47115 pg/ml 08/14/24 02:40
Albumin 4.2 g/dl (3.5-5.0) 08/14/24 02:40
Physical Exam
General: AOx3, Nontoxic , NAD
HEENT: PERRL, EOMI, Anicteric, Conjunctivae Clear, Ear/Nose Intact, Hearing Normal, Oropharynx Clear/Moist, Dentition Intact, Facial Symmetry, Neck Supple, Neck: Trachea Midline, No JVD and No Thyromegaly, no Bruits
Respiratory: Clear to auscultation bilaterally with normal lung exersion
Cardiac: S1/S2 and Regular Rate/Rhythm
Breast: Deferred by me
Abdomen: Soft, Nontender, Nondistended, Normal Bowel Sounds and No Hepatosplenomegaly
Rectal: Deferred by Provider
Genito-urinary: No Costovertebral Tenderness
Extremities: No Clubbing, No Cyanosis and No Edema
Skin: No Rash or open lesions
Neuro: Nonfocal/Grossly Intact, CN II-XII (Intact) and Strength (Musculoskeletal exam 5 out of 5 both upper and lower extremities)
Hematologic/Lymphatic: No Cervical Lymphadenopathy, No Submandibular Lymphadenopathy and No Supraclavicular Lymphadenopathy
Psych: Very Flat affect Insight/judgement good and Appropriate
Vascular: plus 2 pedal and radial pulses
Vascular Access: AVF (Left brachiocephalic AV fistula with good thrill and bruit)
Data Reviewed
-
Radiology: Image Personally Visualized and interpreted (Chest x-ray personally reviewed shows mild pulmonary edema sternal stable wires small effusion)
MRI: Other (EKG report notes right bundle branch block Q waves in the inferior leads and lateral T wave abnormalities at 76 bpm)
Labs: Labs Reviewed by me (BMP CBC)
Old Records: Reviewed (Reviewed previous consultation from January 2024 for end-stage renal disease (gastroenteritis admission))
Assessment/Plan
-
Impression:
Chest Pain
CAD with history of ACS Status post RCA stent on 11/26/23
ESRD (TuSa 3hr) [facility] in [place]
Diarrhea chronic
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
Hypertension
Atrial fibrillation
BPH
Anemia of CKD
CAD/CABG 2016
Cerebrovascular disease
TIA 2002
History ESBL Klebsiella pneumoniae UTI
Gout
Medical noncompliance (allows only two 3-hour HD treatments weekly)
Plan:
HD today, orders provided
Cardiology evaluation for chest pain which has subsequently stopped, continue troponin trend
ROB to be provided for anemia
Maintain oral antihypertensives for hypertension
Hopefully ultrafiltration on dialysis will help with hypertension but noncompliance limits our efficacy, patient does have mild CHF findings on chest x-ray by personal review of film
Fluid restriction and low sodium and potassium diet
[2024-08-14] MEDS: HEPARIN 500 UNITS IV ×2 (15:55→16:55)
--- NOTE | 2024-08-14 16:00 | W.PN.NEPH.HD ---
Assessment
-
Patient seen on dialysis
Patient already battling me on time and UF
I explained to him that he needs 3-1/2 hours of dialysis as he only receives dialysis twice a week and he now has some pulmonary edema on chest x-ray and is hypertensive
I also explained to him that 2 times of dialysis a week is not enough and it is only at his demand and refusal to come to our unit 3 times a week
Progress Note - Hemodialysis
-
Date of Service: August 14, 2024
Duration: 30 minutes and 3 hours
Potassium Bath: 2
Calcium Bath: 2.5
Opti-Dialyzer: 160
Ultrafiltration: Other (2-2.5kg)
Blood Flow: 400
Dialysate Flow: 600
Heparin: 500 times two
EPO: 8000
--- NOTE | 2024-08-14 16:42 | CON.CAR ---
Addendum entered and electronically signed by Elvis Recio MD 08/14/24 17:03:
He remains in sinus rhythm. Would recommend continuing Eliquis 2.5 mg twice daily.
Original Note:
Consultation
Consultation Request
Date/Time Consultation Requested: 08/14/24 7:00AM
Date/Time Consultation Performed: 08/14/24 7:00AM
Requesting Provider: Dr Jackson
Performing Provider: Dr Recio
Reason for Consultation: chest pain
Medical History
-
Chief Complaint: chest pain/falls
History of Present Illness:
83-year-old male with past medical history of coronary artery disease status post CABG and RCA PCI, stroke, diabetes, end-stage renal disease on hemodialysis with noncompliance presents to [facility] with chest pains fatigue and dizziness.
The patient states that 1 week ago he fell and believes he had a stroke but did not seek medical attention. He was having some intermittent balance issues but these seem to improved. He went to dialysis on last Friday and overall felt okay. He
then last night started having some more dizziness and some chest discomfort. The chest pain was an atypical ache in the center of his chest. It seemed worse sometimes with deep breaths other times with exertion. It was moderate in severity do
not radiate. He denies any orthopnea or PND. His weight is up somewhat from his dry weight. He only is agreeable to dialysis Tuesdays and Saturdays. He has no bleeding. He denies any focal power deficits, slurred speech or weakness. He has no
palpitations or syncope.
Past Medical History
Past Medical History: Arrhythmias (Paroxysmal atrial fibrillation) and Other (Recent admission for NSTEMI, RCA PCI and vomiting 11/26/23 until 12/02/23 CAD s/p LCX JOSE & PDA PTCA 2007 s/p CABG x3 GALVEZ to LAD, SVG sequential to OM-2 and OM-3 05/19/17 s/p
NSTEMI and 2.75 mm Xience to mid RCA 11/26/2023 Sinus bradycardia/right bundle branch block Paroxysmal Afib Chronic Eliquis OAC C)
Past Surgical History: Cardiac (CABG 2017)
Social History
Tobacco: Former Smoker
Alcohol: Occasional
Drug: None
Personal:
Family History
Family History: CAD (father 61 GA)
Allergies / Home Medications
Allergy/AdvReac Type Severity Reaction Status Date / Time
No Known Allergies Allergy Verified 08/14/24 02:02
�Medication �Instructions �Recorded �Confirmed �Type
apixaban 2.5 mg tablet (Eliquis) 2.5 mg PO BID blood thinner #60 05/12/21 08/14/24 Rx
tabs
atorvastatin 80 mg tablet 80 mg PO DAILY High cholesterol 01/03/22 08/14/24 History
tamsulosin 0.4 mg capsule 0.4 mg PO BID Urinary issue 02/08/22 08/14/24 History
clopidogrel 75 mg tablet 75 mg PO DAILY #30 tabs 12/02/23 08/14/24 Rx
pantoprazole 40 mg tablet,delayed 40 mg PO DAILY #30 tabs 12/02/23 08/14/24 Rx
release
amlodipine 5 mg tablet 5 mg PO DAILY Blood pressure #30 12/16/23 08/14/24 Rx
tabs
cyanocobalamin (vitamin B-12) 1 tab PO TUSA@0800 Supplement 01/06/24 08/14/24 History
furosemide 80 mg tablet 80 mg PO BID Fluid 01/06/24 08/14/24 History
Retention/Swelling
lorazepam 0.5 mg tablet 0.5 mg PO TIDPRN PRN anxiety 01/06/24 08/14/24 History
losartan 25 mg tablet 25 mg PO DAILY Blood Pressure 01/06/24 08/14/24 History
temazepam 15 mg capsule 15 mg PO HSPRN PRN sleep 01/06/24 08/14/24 History
carvedilol 6.25 mg tablet (Coreg) 6.25 mg PO BID #90 tabs 01/09/24 08/14/24 Rx
acetaminophen 325 mg tablet 975 mg PO DAILYPRN PRN mild pain 01/26/24 08/14/24 History
(Tylenol)
loperamide 2 mg capsule 4 mg PO Q2HPRN PRN diarrhea 01/26/24 08/14/24 History
Review of Systems
-
History Source: Patient
Constitutional: Weight Gain and Fatigue
EENT: No Symptoms
Respiratory: Trouble Breathing
Cardiac: Chest Pain
Abdomen/GI: No Symptoms
: No Symptoms
Musculoskeletal: Muscle Stiffness
Skin: No Symptoms
Neurological: Dizzy
Endocrine: No Symptoms
Hematologic/Lymphatic: No Symptoms
Physical Exam
Vital Signs
Temp Pulse Resp BP Pulse Ox
97.6 F 74 24 177/69 96
08/14/24 11:00 08/14/24 14:00 08/14/24 14:00 08/14/24 14:00 08/14/24 14:00
Lab Results
08/14/24 02:40
08/14/24 02:40
Troponin I 0.078 ng/ml H* 08/14/24 10:46
Bly-Z-Lqrabnjhpvk Pept > 50190 pg/ml 08/14/24 02:40
Physical Exam
General: Well Developed, Well Nourished and No Apparent Distress
HEENT: Normocephalic and Anicteric
Respiratory: Clear and Non Labored Respirations
Cardiac: S1/S2, Regular Rhythm and Murmur (11/22 syst LSB)
GI: Soft, Non Tender and Non Distended
Genito-urinary: No Costovertebral Tender
Musculoskeletal: No Edema
Skin: Warm and Dry
Neuro: AO x 3
Psych: Calm
Impression / Plan
-
PCP: Dr. Tamez
Cardiology: Dr. Mak
Impression:
Presented with chest pain
HTN urgency
Elevated Troponin
NSTEMI, RCA PCI and vomiting 11/26/23 until 12/02/23
CAD
s/p LCX JOSE & PDA PTCA 2007
s/p CABG x3 GALVEZ to LAD, SVG sequential to OM-2 and OM-3 05/19/17
s/p NSTEMI and 2.75 mm Xience to mid RCA 11/26/2023Sinus bradycardia/right bundle branch block
Paroxysmal Afib
Chronic Eliquis OAC
Chronic amiodarone
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
Linq monitor, no longer functional since 2019
HTN
Hyperlipidemia
ESRD on HD with LUE fistula
stenting of left upper extremity brachiocephalic fistula January 2022h/o bilateral carotid disease
h/o medical noncompliance
h/o thrombocytopenia
Echo 09/2020:�normal lv size and function, no regional wall abnormalities, EF 55-60%, mild lvh, severely dilated left atrium, mild mr, mild tr, estimated PAP 34-39
Echo 11/13/2023:�EF 60-65%, mild cLVH, mild LAE.
Echo 12/02/23: EF 60-65%, no WMA, mild conc LVH
Cath 01/08/24: Patent saphenous vein graft to OM2-OM3, patent GALVEZ to LAD, patent mid RCA stent.
Plan:
He has known significant coronary artery status post CABG and RCA stent from November 2023. He presents with more chest pains. We reviewed his catheterization from December 2023 which was stable.
His EKG does have some nonspecific T wave abnormalities. Cardiac troponins are mildly elevated but also in the setting of dialysis, although he is not compliant with dialysis and only uses dialysis twice a week.
Would recommend medical therapy for CAD/non-STEMI.
Will increase Coreg to 12.5 mg p.o. twice daily. Continue Plavix, high-dose atorvastatin, losartan, and amlodipine.
Continue hemodialysis for volume removal.
Will check lipids.
Will check echocardiogram on Friday.
Data Reviewed
-
EKG: Tracing Personally Visualized and interpreted
Radiology: Report Reviewed by me
Medical Tests (Nuc Med, Echo etc): Report Reviewed by me
Labs: Labs Reviewed by me
Old Records: Reviewed
[2024-08-14] MEDS: LASIX 80 MG IV (17:05)
[2024-08-14] MEDS: RETACRIT 8000 UNITS IV (17:15)
[2024-08-14] MEDS: COREG 12.5 MG PO (20:35)
[2024-08-15 03:00] VITALS: BP 143/51
--- NOTE | 2024-08-15 07:10 | PTCARENOTE ---
pt agitated standing at elevator stated he is leaving. code purple. pt assisted back to his room. Ivs removed, daughter called. Daughter S/W pt on phone but he continued to insist he was leaving. pt oriented x3. states he has his car here, presented
keys, educated on risks of leaving AMA but insisted firmly.
== END 2024-08-15 07:41 | disposition left against medical advice (07) | DRG 291 ==
LOC: 3 WEST ACU 05:50
PROVIDERS: ADMITTING PHYSICIAN Internal Medicine; ATTENDING PHYSICIAN Internal Medicine; CONSULT PHYSICIAN Internal Medicine Cardiovascular Disease; CONSULT PHYSICIAN Specialist; EMERGENCY PHYSICIAN Emergency Medicine; FAMILY PHYSICIAN Family Medicine
PROC: 5A1D70Z Performance of Urinary Filtration, Intermittent, Less than 6 Hours Per Day (ICD-10-PCS; 2024-08-14)
DX: I13.2 Hypertensive heart and chronic kidney disease with heart failure and with stage 5 chronic kidney disease, or end stage renal disease (principal); I50.33 Acute on chronic diastolic (congestive) heart failure; N18.6 End stage renal disease; I69.354 Hemiplegia and hemiparesis following cerebral infarction affecting left non-dominant side; E11.22 Type 2 diabetes mellitus with diabetic chronic kidney disease; I48.0 Paroxysmal atrial fibrillation; I25.10 Atherosclerotic heart disease of native coronary artery without angina pectoris; I16.0 Hypertensive urgency; Z66 Do not resuscitate; Z99.2 Dependence on renal dialysis; Z91.158 Patient's noncompliance with renal dialysis for other reason; I25.2 Old myocardial infarction; Z79.02 Long term (current) use of antithrombotics/antiplatelets; Z95.1 Presence of aortocoronary bypass graft; Z95.5 Presence of coronary angioplasty implant and graft; Z87.891 Personal history of nicotine dependence
CPT/HCPCS: 70450; 71046; 80053; 83880; 84484; 85025; 85610; 85730; 87070; 93005; 96374; 99285; G0257; Q5106

== ENCOUNTER → 2024-12-31 07:37 | Outpatient (REF) | payer OTHER, SELFPAY | LOC: RAD 07:37 | PROVIDERS: ATTENDING PHYSICIAN Family Medicine | DX: R06.00 Dyspnea, unspecified (principal) | CPT/HCPCS: 71046 ==

== ENCOUNTER 2025-01-11 10:39 | Emergency (ER) | payer OTHER, SELFPAY ==
[2025-01-11 11:00] VITALS: BP 184/82
--- NOTE | 2025-01-11 13:24 | ED.GENMED ---
History of Present Illness
General
Chief Complaint: Catheter/Tube Problem
Source: patient and family
Exam Limitations: none
Time Seen by Provider: 01/11/25 13:23
Nursing documentation reviewed up to this point in time: agreed with
History of Present Illness
History of Present Illness:
Patient is a 84-year-old male who was brought to the ER by EMS for bleeding left AV fistula. Patient started bleeding in dialysis. He now reports bleeding has since resolved. He has no complaints and wanted to go home prior to my exam.
Daughter at bedside
Past History
Past History
ED Past Medical History: Arrthythmia (Atrial fib), CAD, CVA (Left sided weakness slight), HTN, Hypercholesterolemia, NIDDM, [place], Renal failure (Dialysis Friday and Friday) and Other (TIA 2002, Diverticulosis, Anemia)
ED Past Surgical History: Cardiac (Cardiac stents, LINK, CABG) and Other (Cataracts, Left arm fistula)
Social History
Tobacco: Former smoker
Alcohol: None
Personal:
Living: alone
Employment: Retired
Review of Systems
Review of Systems
Allergies reviewed?: Yes
All Other Systems: ROS reviewed and negative except as documented in HPI and ROS
Constitutional: Reports no symptoms; Denies fever
Musculoskeletal: Reports other (Bleeding from left AV fistula)
Skin: Reports no symptoms
Psychiatric: Reports no symptoms
Phy Exam
General Physical Exam
General Presentation: no apparent distress
General age: appears stated age
General Skin: warm and dry
General Habitus: elderly
General Mental: alert
Neurological Exam
Neurological Exam: alert
Musculoskeletal Exam
Musculoskeletal Exam: other (Left upper extremity AV fistula no bleeding positive thrill good pulses normal distal sensation)
Course
Vital Signs
Initial and Last Documented VS:
Initial Vital Signs
Temp Pulse Resp BP Pulse Ox
97.5 F 83 18 184/82 98
01/11/25 11:00 01/11/25 11:00 01/11/25 11:00 01/11/25 11:00 01/11/25 11:00
Last Documented Vital Signs
Temp Pulse Resp BP Pulse Ox
97.5 F 83 18 184/82 98
01/11/25 11:00 01/11/25 11:00 01/11/25 11:00 01/11/25 11:00 01/11/25 11:00
MDM/Problems Addressed
MDM/Problems Addressed:
Patient is an 84-year-old male who presented for bleeding AV fistula. Patient had bleeding while in dialysis and has had a clip on for several hours however bleeding has self resolved. He has no physical complaints. Positive thrill good pulse.
Case to ED physician ultrasound considered heart patient declines, patient also declines blood work. He is requesting to go home as symptoms are resolved. Repeat blood pressure 179/82 taken by myself
*Critical Care Note
Total Time (30-74mins, 75-104mins- exclusive of procedures): Not Applicable
ED Attending Note
-
Portions of this chart may have been created with voice recognition software.� Occasional wrong word or��sound alike� substitutions may have occurred due to the inherent limitations of voice recognition software.
Discharge Plan
Departure
Patient Disposition: Home (Routine Discharge)
Date of Disposition: 01/11/25
Time of Disposition: 13:38
Patient with high blood pressure during this ER visit?: Yes
Condition: Fair
Covid-19: Not Applicable
Discharge Problem:
bleeding av fistula
Prescriptions:
No Action
Eliquis 2.5 MG tablet
2.5 mg PO BID Qty: 60 0RF
atorvastatin 80 MG tablet
80 mg PO DAILY
tamsulosin 0.4 MG capsule
0.4 mg PO BID
clopidogrel 75 mg Tablet
75 mg PO DAILY Qty: 30 0RF
pantoprazole 40 mg Tablet,Delayed Release (Dr/Ec)
40 mg PO DAILY Qty: 30 0RF
amlodipine 5 mg tablet
5 mg PO DAILY Qty: 30 11RF
lorazepam 0.5 mg Tablet
0.5 mg PO TIDPRN PRN (Reason: anxiety)
Patient Comments:
08/14/2024: last filled on 04/29/2024 for 60 tablets over 20 days
temazepam 15 mg Capsule
15 mg PO HSPRN PRN (Reason: sleep)
Patient Comments:
08/14/2024: last filled on 03/24/2024 for 30 capsules over 30 days
furosemide 80 mg Tablet
80 mg PO BID
losartan 25 mg Tablet
25 mg PO DAILY
cyanocobalamin (vitamin B-12)
1 tab PO TUSA@0800
Patient Comments:
08/14/24: patient states he gets this from dialysis. Unsure of dosage
carvedilol [Coreg] 6.25 mg tablet
6.25 mg PO BID Qty: 90 3RF
acetaminophen [Tylenol] 325 mg Tablet
975 mg PO DAILYPRN PRN (Reason: mild pain)
loperamide 2 mg Capsule
4 mg PO Q2HPRN PRN (Reason: diarrhea)
Referrals:
Jose Tamez MD [Family Provider] -
Activity Restrictions/Additional Instructions:
You were seen today for bleeding from your AV fistula. Return if any worsening of symptoms follow-up with your personnel director as needed and dialysis as scheduled
Interventions
Interventions:
*Risk Screen - Suicide Last Done: 01/11/25 11:00
*General Assessment Last Done: 01/11/25 11:00
*Neglect/Abuse Screening Last Done: 01/11/25 11:00
*ED COVID-19 Vaccine History Last Done: 01/11/25 11:00
*Nursing Disposition Last Done: 01/11/25 14:08
Discharge Date and Time
Discharge Date/Time: 01/11/25 14:09
Print Language: CYMRAES
== END 2025-01-11 14:09 | disposition home or self-care (01) ==
LOC: EMR 10:39
PROVIDERS: EMERGENCY PHYSICIAN Emergency Medicine; FAMILY PHYSICIAN Family Medicine
DX: T82.838A Hemorrhage due to vascular prosthetic devices, implants and grafts, initial encounter (principal); Y84.1 Kidney dialysis as the cause of abnormal reaction of the patient, or of later complication, without mention of misadventure at the time of the procedure; E78.00 Pure hypercholesterolemia, unspecified; I12.0 Hypertensive chronic kidney disease with stage 5 chronic kidney disease or end stage renal disease; N18.6 End stage renal disease; Z99.2 Dependence on renal dialysis; I25.10 Atherosclerotic heart disease of native coronary artery without angina pectoris; I69.954 Hemiplegia and hemiparesis following unspecified cerebrovascular disease affecting left non-dominant side; I48.91 Unspecified atrial fibrillation; Z87.891 Personal history of nicotine dependence; Z95.1 Presence of aortocoronary bypass graft; Z95.5 Presence of coronary angioplasty implant and graft
CPT/HCPCS: 99283

== ENCOUNTER → 2025-02-02 06:32 | Outpatient (REF) | payer OTHER, SELFPAY | LOC: RAD 06:32 | PROVIDERS: ATTENDING PHYSICIAN Surgery Vascular Surgery; FAMILY PHYSICIAN Family Medicine | DX: I77.0 Arteriovenous fistula, acquired (principal); N18.4 Chronic kidney disease, stage 4 (severe) | CPT/HCPCS: 93990 ==

== ENCOUNTER 2025-02-18 11:49 | Day surgery (SDC) | payer OTHER, SELFPAY ==
--- NOTE | 2025-02-15 12:36 | SUR.OPER ---
11/2024 ECG w/ Inferior infarct, 04/30/2024 ECG with same
[2025-02-18 12:32] LABS: Hematocrit 35.6 % (39.0-52.0); Hemoglobin 11.4 g/dL (13.0-18.0); Mean Corpuscular Hgb 30.5 pg (27.0-31.0); Mean Corpuscular Volume 95.2 fL (80.0-94.0); Mean Platelet Volume 11.1 fL (7.4-10.4); Platelet Count 156 10^3/uL (130-400); Red Blood Cell Count 3.74 10^6/uL (4.70-6.10); Red Cell Dist. Width 16.5 % (11.5-14.5); White Blood Cell Count 5.6 10^3/uL (4.8-10.8)
[2025-02-18 12:35] VITALS: BP 189/74
[2025-02-18 12:38] VITALS: BMI 27.8
[2025-02-18 12:41] LABS: INR 1.25
[2025-02-18 12:42] LABS: APTT 37.7 Sec (23.4-35.0)
[2025-02-18 12:45] VITALS: BP 189/74
[2025-02-18 12:50] LABS: Blood Urea Nitrogen 46 mg/dl (9-20); Calcium 8.5 mg/dl (8.4-10.2); Carbon Dioxide 29 mmol/L (22-30); Chloride 102 mmol/L (98-107); Estimated Creatinine Clearance 7 ml/min; Glucose 94 mg/dl (70-99); Potassium 4.5 mmol/L (3.5-5.1); Sodium 144 mmol/L (135-145); eGFR 7.14
--- NOTE | 2025-02-18 15:50 | W.SUR.PREOP ---
Pre-Operative Surgical Note
-
I have examined this patient prior to the performance of the scheduled procedure.
The patient's condition is unchanged from the time of the current History and
Physical and the patient is able to undergo the scheduled procedure.
[2025-02-18 17:09] LABS: Glucose - Point of Care 112 mg/dl (70-99)
[2025-02-18 17:22] VITALS: BP 135/54; BP 189/74
[2025-02-18 17:27] LABS: Glucose - Point of Care 115 mg/dl (70-99)
--- NOTE | 2025-02-18 17:28 | OR.RPT ---
Operative Report
Operative Report
Date of Operation: 02/18/2025
Pre Op Diagnosis: Prolonged bleeding following hemodialysis
Post Op Diagnosis: Prolonged bleeding following hemodialysis
Procedure:
1. Diagnostic left upper extremity fistulogram
2. Central venogram
3. Balloon angioplasty of venous outflow stenosis (7 mm x 40 mm balloon)
Surgeon: Maximino Escobar III, MD
Toe Lining Closer: Álvaro Groves MD PGY1
Anesthesia: Sedation/local
Complications: None
Fluoroscopy:
5 minutes
15 mGy
5.23 DAP
History and Indications for Procedure: 84-year-old male with end-stage renal disease requiring hemodialysis. He has a functioning left upper arm arteriovenous access. He noted prolonged bleeding at hemodialysis
Procedure in Detail: Israel Frost was correctly identified and placed supine on the operating table. After adequate induction of anesthesia the [ ] was positioned, prepped and draped in the usual sterile fashion. Preoperative antibiotics were
administered. A timeout procedure was performed with the nursing and anesthesia staff confirming the patient�s identity as well as the nature and laterality of the procedure.
Intraoperative ultrasound was performed on the AV access. This was a brachiocephalic arteriovenous fistula. The fistula was patent.
I identified a puncture site along the proximal venous outflow and infiltrated local anesthesia at this site. Under ultrasound guidance I accessed the fistula with a micropuncture needle facing towards the venous outflow and placed the micropuncture
sheath. I performed a fistulogram which demonstrated the following:
Fistulogram: Patent left upper extremity brachiocephalic fistula. Mild aneurysmal degeneration at the mid arm cephalic vein segment. Patent Viabahn stent graft in the distal venous outflow in the upper arm. Focal high-grade stenosis identified at
the proximal edge of the Viabahn stent graft and in the more proximal venous outflow. Distal cephalic vein widely patent. Patent cephalic arch with no stenosis identified.
Central venogram: Patent central venous system with brisk flow and no stenosis identified
Endovascular intervention:
Systemic heparin was administered. A short 6 Fr sheath was placed. A [employer]ao[employer]son wire was used to cross the stenosis. I then brought a 7 mm x 40 mm angioplasty balloon into position under roadmap guidance and centered this across the stenosis at the
proximal end of the Viabahn stent graft. This was inflated to nominal pressure and held in place for 1 minute.
While the balloon was inflated I performed a reflux fistulogram that demonstrated the proximal vein was patent and no significant stenosis identified. There was reflux across the arteriovenous anastomosis which was patent and no stenosis was
identified. The visualized segment of the brachial artery was patent.
I then deflated the balloon and pulled it back to treat the more proximal venous outflow stenosis. The balloon was inflated to nominal pressure and held in place for 1 minute.
Completion fistulogram demonstrated an excellent technical result. Widely patent fistula with brisk flow. No residual stenosis was identified..
At the conclusion of the procedure a Monocryl suture was placed around the sheath puncture site. The sheath was removed and the suture secured. Hemostasis was achieved. A sterile dressing was applied.
The patient tolerated the procedure well and was taken to the PACU in stable condition
Attestation: I was present and responsible for the entire procedure
Signed: Maximino Escobar III, MD
[facility]
[phone] ([id number])
[2025-02-18 17:30] VITALS: BP 147/58
[2025-02-18 17:45] VITALS: BP 152/57
[2025-02-18 17:59] VITALS: BP 160/62
== END 2025-02-18 18:20 | disposition home or self-care (01) ==
LOC: CATH 11:49
PROVIDERS: ATTENDING PHYSICIAN Surgery Vascular Surgery; FAMILY PHYSICIAN Family Medicine; OTHER PHYSICIAN Internal Medicine Cardiovascular Disease; PRIMARYCARE PHYSICIAN Internal Medicine Cardiovascular Disease
DX: T82.838D Hemorrhage due to vascular prosthetic devices, implants and grafts, subsequent encounter (principal); Y83.2 Surgical operation with anastomosis, bypass or graft as the cause of abnormal reaction of the patient, or of later complication, without mention of misadventure at the time of the procedure; I12.0 Hypertensive chronic kidney disease with stage 5 chronic kidney disease or end stage renal disease; E11.22 Type 2 diabetes mellitus with diabetic chronic kidney disease; N18.6 End stage renal disease; Z99.2 Dependence on renal dialysis; I25.2 Old myocardial infarction; Z86.73 Personal history of transient ischemic attack (TIA), and cerebral infarction without residual deficits; Z95.5 Presence of coronary angioplasty implant and graft; Z79.899 Other long term (current) drug therapy; Z79.01 Long term (current) use of anticoagulants; Z79.82 Long term (current) use of aspirin
CPT/HCPCS: 36902; 80048; 82962; 85027; 85610; 85730; C1725; C1769; C1894; Q9967

== ENCOUNTER → 2025-02-24 06:23 | Outpatient (REF) | payer OTHER, SELFPAY ==
[2025-02-24 06:52] LABS: Hematocrit 34.2 % (39.0-52.0); Hemoglobin 11.1 g/dL (13.0-18.0); Mean Corp Hgb Conc. 32.5 g/dL (33.0-37.0); Mean Corpuscular Hgb 30.7 pg (27.0-31.0); Mean Corpuscular Volume 94.7 fL (80.0-94.0); Mean Platelet Volume 11.1 fL (7.4-10.4); Platelet Count 102 10^3/uL (130-400); Red Blood Cell Count 3.61 10^6/uL (4.70-6.10); Red Cell Dist. Width 16.3 % (11.5-14.5); White Blood Cell Count 5.5 10^3/uL (4.8-10.8)
[2025-02-24 07:28] LABS: NT-proBNP > 27000 pg/ml
[2025-02-24 07:36] LABS: ALT (SGPT) 14 U/L (0-50); AST (SGOT) 17 U/L (17-59); Albumin 4.7 g/dl (3.5-5.0); Alkaline Phosphatase 93 U/L (38-126); Blood Urea Nitrogen 56 mg/dl (9-20); Calcium 8.9 mg/dl (8.4-10.2); Carbon Dioxide 28 mmol/L (22-30); Chloride 101 mmol/L (98-107); Glucose 125 mg/dl (70-99); HDL Cholesterol 69 mg/dl; LDL Cholesterol, Calculated 52 mg/dl; Phosphorus 5.7 mg/dl (2.5-4.5); Sodium 145 mmol/L (135-145); Total Bilirubin 0.7 mg/dl (0.2-1.3); Total Cholesterol 137 mg/dl (50-199); Total Protein 6.8 g/dl (6.3-8.2); Triglyceride 82 mg/dl (10-149); Very Low Density Lipoprotein 16 mg/dl (0-30)
[2025-02-24 07:57] LABS: TSH 3.06 uIU/ml (0.47-4.68)
[2025-02-24 11:19] LABS: % Basophils 0.4 % (0-2); % Immature Granulocytes 5.9 % (0-0.5); % Lymphocytes 10.8 % (20.5-51.1); % Monocytes 19.8 % (1.7-9.3); % Neutrophils 61.1 % (42.2-75.2); Absolute Eosinophils 0.1 10^3/uL (0-0.7); Absolute Immature Granulocytes 0.3 10^3/uL (0-0.05); Absolute Lymphocytes 0.6 10^3/uL (1.2-3.4); Absolute Monocytes 1.1 10^3/uL (0.1-0.6); Absolute Neutrophils 3.3 10^3/uL (1.4-6.5); Nucleated Red Blood Cells % 0 % (-)
== END ==
LOC: REG 06:23
PROVIDERS: ATTENDING PHYSICIAN Internal Medicine Cardiovascular Disease; FAMILY PHYSICIAN Family Medicine
DX: R06.02 Shortness of breath (principal); D63.8 Anemia in other chronic diseases classified elsewhere; N18.5 Chronic kidney disease, stage 5; I50.33 Acute on chronic diastolic (congestive) heart failure; E78.5 Hyperlipidemia, unspecified
CPT/HCPCS: 36415; 80053; 80061; 83880; 84100; 84443; 85025

== ENCOUNTER → 2025-03-02 13:25 | Outpatient (REF) | payer OTHER, SELFPAY | LOC: RCS 13:25 | PROVIDERS: ATTENDING PHYSICIAN Internal Medicine Cardiovascular Disease; FAMILY PHYSICIAN Family Medicine | DX: R06.02 Shortness of breath (principal) | CPT/HCPCS: 93306 ==

== ENCOUNTER 2025-04-12 19:40 | Observation (INO) | payer OTHER, SELFPAY ==
[2025-04-12] VITALS (7 sets, daily range): BP systolic 134–183; BP diastolic 45–77; BMI 24.8
[2025-04-12 14:39] LABS: Hematocrit 28.8 % (39.0-52.0); Hemoglobin 9.6 g/dL (13.0-18.0); Mean Corp Hgb Conc. 33.3 g/dL (33.0-37.0); Mean Corpuscular Hgb 30.4 pg (27.0-31.0); Mean Corpuscular Volume 91.1 fL (80.0-94.0); Mean Platelet Volume 11.1 fL (7.4-10.4); Platelet Count 137 10^3/uL (130-400); Red Blood Cell Count 3.16 10^6/uL (4.70-6.10); Red Cell Dist. Width 16.7 % (11.5-14.5); White Blood Cell Count 6.4 10^3/uL (4.8-10.8)
[2025-04-12 15:10] LABS: ALT (SGPT) 16 U/L (0-50); AST (SGOT) 18 U/L (17-59); Albumin 4.6 g/dl (3.5-5.0); Alkaline Phosphatase 99 U/L (38-126); Blood Urea Nitrogen 48 mg/dl (9-20); Carbon Dioxide 29 mmol/L (22-30); Chloride 101 mmol/L (98-107); Glucose 98 mg/dl (70-99); Potassium 4.6 mmol/L (3.5-5.1); Sodium 143 mmol/L (135-145); Total Bilirubin 0.7 mg/dl (0.2-1.3); Total Protein 7.2 g/dl (6.3-8.2); eGFR 9.14
[2025-04-12 15:11] LABS: % Basophils 0.2 % (0-2); % Eosinophils 3.8 % (0-6); % Immature Granulocytes 7.5 % (0-0.5); % Lymphocytes 10.6 % (20.5-51.1); % Monocytes 17.7 % (1.7-9.3); % Neutrophils 60.2 % (42.2-75.2); Absolute Eosinophils 0.2 10^3/uL (0-0.7); Absolute Immature Granulocytes 0.5 10^3/uL (0-0.05); Absolute Lymphocytes 0.7 10^3/uL (1.2-3.4); Absolute Monocytes 1.1 10^3/uL (0.1-0.6); Absolute Neutrophils 3.9 10^3/uL (1.4-6.5); Nucleated Red Blood Cells % 0 % (-)
--- NOTE | 2025-04-12 16:46 | ED.GENMED ---
History of Present Illness
General
Chief Complaint: Fall
Source: patient
Exam Limitations: none
Time Seen by Provider: 04/12/25 16:17
Nursing documentation reviewed up to this point in time: agreed with
History of Present Illness
History of Present Illness:
Patient is an 84-year-old with past medical history of chronic renal disease on hemodialysis Friday, A-fib CHF CAD NC on Eliquis presents to the ER for evaluation. Daughter at bedside reports patient's balance has gotten
progressively worse for the past month. He has had 2 falls because of his balance. He does feel somewhat weak but reports he mainly feels off balance when he walks. he describes feeling very unsteady on his feet and feeling dizzy though the room
does not spin. He has to hold onto things or is going to fall over. He fell 2 weeks ago and then fell again 2 days ago. He has hit his head when he fell and is on anticoagulation. Dialysis nurses noticed his abrasion to his left knee and called
daughter who brought patient to the ER. He does report that symptoms started 1 month ago prior to that his balance was not off. He fell 1 month ago due to his balance and also at that time noticed that his left hearing was decreased and reports he
was concerned he might of had a stroke at that time.
Patient reports when symptoms first started about a month ago he got up out of a chair felt off balance and fell and thought he might of had a stroke at that time because his left hearing has been decreased since then.
He denies any recent illness fever chills. He denies any black or dark stools.
Past History
Past History
ED Past Medical History: Arrthythmia (Atrial fib), CAD, CVA (Left sided weakness slight), HTN, Hypercholesterolemia, NIDDM, NC, Renal failure (Dialysis Friday and Friday) and Other (TIA 2002, Diverticulosis, Anemia)
ED Past Surgical History: Cardiac (Cardiac stents, LINK, CABG) and Other (Cataracts, Left arm fistula)
Social History
Tobacco: Former smoker
Alcohol: None
Personal:
Living: alone
Employment: Retired
Review of Systems
Review of Systems
Allergies reviewed?: Yes
Other source history: family
All Other Systems: ROS reviewed and negative except as documented in HPI and ROS
Constitutional: Reports fatigue; Denies fever
Respiratory: Reports no symptoms; Denies trouble breathing
Cardiac: Reports no symptoms; Denies chest pain
ABD/GI: Reports no symptoms; Denies abdominal pain, nausea, vomiting or black stools
: Reports no symptoms
Musculoskeletal: Reports no symptoms
Skin: Reports no symptoms
Neurological: Reports other (Feels off balance when he walks)
Psychiatric: Reports no symptoms
Phy Exam
General Physical Exam
General Presentation: no apparent distress
General age: appears stated age
General Skin: warm and dry
General Habitus: elderly
General Mental: alert
General Hydration: appears well hydrated
Eye Exam
Eye Exam: PERRL, EOMI and other (No nystagmus)
Eye Exam General: PERRL: bilateral and EOM intact: bilateral
Pupil Exam: Bilateral: round and reactive
Cardiovascular Exam
Cardiovascular Exam: regular rate/rhythm, no murmur and normal peripheral pulses
Pulmonary Exam
Pulmonary Exam: lungs clear and no respiratory distress
Neurological Exam
Neurological Exam: alert, oriented x3, no sensory deficits and other (Minimal left sided weakness which is chronic from previous stroke; normal finger-nose; attempted ambulation balance is very slow slightly unsteady)
Musculoskeletal Exam
Musculoskeletal Exam: full ROM
Skin Exam
Skin Exam: normal color and warm/dry
Psychiatric Exam
Psychiatric Exam: normal mood/affect
Course
Orders/Labs/Results
Orders:
Orders
04/12/25 14:19
CT Head W/o Iv Contrast Urgent
Comment:
Reason For Exam: fall+thinners
04/12/25 14:28
Complete Blood Count/With Diff Urgent
Comprehensive Metabolic Panel Urgent
04/12/25 17:00
UA Reflex to Culture [Urinalysis Reflex To Culture] Urgent
04/12/25 17:04
Electrocardiogram (*1) Stat
Reason for Study: Other
Other Reason for Exam: chest pain
Cardiac Monitoring- Treatment ONCE
EKG- Treatment ONCE
04/12/25 17:25
C DIFF [C difficile Antigen & Toxins] Urgent
DREW Source: Feces/Stool
Specimen Description:
Stool Culture Urgent
DREW Source: Feces/Stool
Specimen Description:
Abnormal Lab Results
04/12/25
14:28
RBC 3.16 L 10^6/uL
(4.70-6.10)
Hgb 9.6 L g/dL
(13.0-18.0)
Hct 28.8 L %
(39.0-52.0)
RDW 16.7 H %
(11.5-14.5)
MPV 11.1 H fL
(7.4-10.4)
Abs Immat Gran (auto) 0.5 H 10^3/uL
(0-0.05)
Absolute Lymphs (auto) 0.7 L 10^3/uL
(1.2-3.4)
Absolute Monos (auto) 1.1 H 10^3/uL
(0.1-0.6)
Immature Gran % 7.5 H %
(0-0.5)
Lymphocytes % 10.6 L %
(20.5-51.1)
Monocytes % 17.7 H %
(1.7-9.3)
BUN 48 H mg/dl
(9-20)
Creatinine 5.7 H* mg/dL
(0.7-1.3)
04/12/25 14:28
04/12/25 14:28
Vital Signs
Initial and Last Documented VS:
Initial Vital Signs
Temp Pulse Resp BP Pulse Ox
98.3 F 46 20 155/59 96
04/12/25 14:14 04/12/25 14:14 04/12/25 14:14 04/12/25 14:14 04/12/25 14:14
Last Documented Vital Signs
Temp Pulse Resp BP Pulse Ox
98.3 F 91 21 183/77 95
04/12/25 14:14 04/12/25 18:03 04/12/25 18:03 04/12/25 17:08 04/12/25 17:20
MDM/Problems Addressed
MDM/Problems Addressed:
As documented patient is an 84-year-old male with significant history stocking above presents for difficulty walking progressive weakness balance issues over the past 1 month. He has fallen twice in the past month ;last fall was 2 days ago and he
has hit his head with this falls. He is anticoagulated. Patient does feel slightly weak but reports mostly feeling unsteady with ambulation. Patient has no acute neurological deficits here in the ER he has chronic slight left-sided weakness from
previous CVA. Nurse and I did attempt to ambulate patient he is very slow and unsteady there is a definite high concern for fall risk at home. No acute findings on CAT scan however may need neuro eval and PT eval. He lives at home alone. Will
require admission for evaluation safety/fall risk.
He denies any fevers and is afebrile here hemoglobin low at 9.6 decreased from 11.1 in February. He denies any black or dark stools. He does report he has had diarrhea for the past several weeks. Stool culture ordered. He has chronic renal failure
his potassium was normal at 4.6 with a normal sodium. Will check urinalysis.
*Radiology
Radiology exam reviewed: radiology read reviewed
*Pulse Oximetry
Patient hypoxic: no
*EKG
Interpreted by ED Provider?: Yes
Comparison EKG: changes noted (qtc lengthened)
Heart Rate: 72
Rate: normal
Rhythm: sinus
Ischemia: no ischemia
*Critical Care Note
Total Time (30-74mins, 75-104mins- exclusive of procedures): Not Applicable
Data Reviewed
Review of Other/Old Records Reveals: Labs and Discharge Summary
Patient Management
Discussion with other providers: Hospitalist
ED Attending Note
-
Portions of this chart may have been created with voice recognition software.� Occasional wrong word or��sound alike� substitutions may have occurred due to the inherent limitations of voice recognition software.
Discharge Plan
Departure
Patient Disposition: Admit
Date of Disposition: 04/12/25
Time of Disposition: 17:33
Admit to: Med/Surg
Admit to doctor: hospitalist
Presentation/result/management discussed w/ accepting MD/DO: Hospitalist
Patient with high blood pressure during this ER visit?: Yes
Condition: Fair
Covid-19: Not Applicable
Discharge Problem:
Frequent falls, Ambulatory dysfunction, Anemia, Chronic renal failure
Prescriptions:
No Action
Eliquis 2.5 MG tablet
2.5 mg PO BID Qty: 60 0RF
atorvastatin 80 MG tablet
80 mg PO DAILY
tamsulosin 0.4 MG capsule
0.4 mg PO BID
pantoprazole 40 mg Tablet,Delayed Release (Dr/Ec)
40 mg PO DAILY Qty: 30 0RF
amlodipine 5 mg tablet
5 mg PO DAILY Qty: 30 11RF
furosemide 80 mg Tablet
80 mg PO BID
losartan 25 mg Tablet
25 mg PO DAILY
carvedilol [Coreg] 6.25 mg tablet
6.25 mg PO BID Qty: 90 3RF
sertraline 50 mg Tablet
50 mg PO BID
mirtazapine 7.5 mg Tablet
7.5 mg PO HS
Referrals:
NONE,* [Active] -
Interventions
Interventions:
*Risk Screen - Suicide Last Done: 04/12/25 14:14
*General Assessment Last Done: 04/12/25 14:14
*Neglect/Abuse Screening Last Done: 04/12/25 14:14
*ED- Fall Risk Assessment Last Done: 04/12/25 18:27
*ED COVID-19 Vaccine History Last Done: 04/12/25 18:27
ED-Musculoskeletal Assessment Last Done: 04/12/25 18:29
ED- Neurological Assessment Last Done: 04/12/25 18:29
ED-Skin Assessment Last Done: 04/12/25 18:30
Discharge Date and Time
Print Language: CENTRAL AFRICAN
--- NOTE | 2025-04-12 18:00 | HPS.HSE ---
Family Physician
-
Family Physician: Jose Tamez
Chief Complaint
-
Falls, bilateral hearing loss left greater than right
History of Present Illness
84-year-old male with reported 2 falls over the past month and worsening balance. He reportedly feels unsteady on his feet with a dizzy sensation he has to hold onto furniture to walk throughout his apartment after falling 1 month ago he has
noticed some left hearing loss. The patient states about a month ago he got up out of a chair felt off balance and thought he might of had a stroke due to developing left hearing loss acutely. He reports on Friday he was walking out of his house
took 2 steps out the door and suddenly fell on the ground he had no prodrome of symptoms. He reports hearing loss is worse in his left ear he did have the ear wax removed 1 month ago there is currently no wax in his bilateral ears however he has
cloudy appearance behind his tympanic membrane although landmarks are visible. He denies any postnasal drip, rhinorrhea, sneezing. 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
He was complaining of diarrhea for a couple weeks to the ER he denies current headache, fever, chills, chest pain, palpitations, cough, shortness of breath, abdominal pain, nausea, vomiting. Patient has past medical history of Cardiac murmur,
CAD/NE/CABG, 2D echo 03/02/2025 EF 50-55%, normal LVS LVSF, mild LVH, mild inferior septal hypokinesis, stage I diastolic dysfunction, severely dilated LA, moderate MR, mild TR, PASP 22 mmHg, Stent March 2017, drug-eluting stent, multiple stents and
PCI 2 stents to circumflex and PDA on 05/26/2008, 07/31/2011
CABG x 3 vessel GALVEZ to LAD, vein graft OM 2 sequential to OM [address] Wilkes 05/19/2017, RBBB, Paroxysmal A-fib, Bradycardia due to labetalol, ESRD on HD Friday by his choice, Anemia of chronic disease, Benign HTN, CVA with left-sided
weakness, Dizziness, HLD, Depression
Medical History
Past Medical History
Past Medical History: Reports Other
Additional Past Medical History:
Cardiac murmur
Cardiac stents�Stent March 2017, drug-eluting stent, multiple stents and PCI 2 stents to circumflex and PDA on 05/26/2008, 07/31/2011
CAD/NE/CABG x 3 vessel 05/19/2017 GALVEZ to LAD, vein graft OM 2 sequential to OM [address] Wilkes 05/19/2017
2D echo 03/02/2025 EF 50-55%, normal LVS LVSF, mild LVH, mild inferior septal hypokinesis, stage I diastolic dysfunction, severely dilated LA, moderate MR, mild TR, PASP 22 mmHg
Stent coronary artery
RBBB
Paroxysmal A-fib
Bradycardia due to labetalol
ESRD on HD Friday by his choice
Anemia of chronic disease
Benign HTN
CVA with left-sided weakness
Dizziness
HLD
Depression
Past Surgical History: Reports Other
Additional Past Surgical History:
Stent March 2017, drug-eluting stent, multiple stents and PCI 2 stents to circumflex and PDA on 05/26/2008, 07/31/2011
CABG x 3 vessel GALVEZ to LAD, vein graft OM 2 sequential to OM [address] Wilkes 05/19/2017
AV fistula 11/03/2020, left arm fistulogram 01/05/2021, 04/13/2021
Stenting left upper extremity brachiocephalic fistula venous outflow stenosis Dr. Escobar 02/08/2022
Balloon angioplasty proximal venous stenosis of the left upper arm AV fistula Dr. Escobar 02/04/2023
Social History
Tobacco: Non-smoker
Alcohol: None
Drug: None
Personal: Single
Living: Alone
Employment: Retired
Family History
Family History: Other (Father age 61 NE Mother age 70 CVA Son from suicide Son bladder cancer)
Allergies / Home Medications
Allergies reflects when Allergies were last updated in [facility].
Home Medications with original date entered in [facility]
Allergy/Medication List:
Allergies
Allergy/AdvReac Type Severity Reaction Status Date / Time
No Known Allergies Allergy Verified 04/12/25 14:18
Home Medications
apixaban 2.5 mg tablet (Eliquis) 2.5 mg PO BID blood thinner #60 tabs 05/12/21
atorvastatin 80 mg tablet 80 mg PO DAILY High cholesterol 01/03/22
tamsulosin 0.4 mg capsule 0.4 mg PO BID Urinary issue 02/08/22
pantoprazole 40 mg tablet,delayed release 40 mg PO DAILY #30 tabs 12/02/23
amlodipine 5 mg tablet 5 mg PO DAILY Blood pressure #30 tabs 12/16/23
furosemide 80 mg tablet 80 mg PO BID Fluid Retention/Swelling 01/06/24
losartan 25 mg tablet 25 mg PO DAILY Blood Pressure 01/06/24
carvedilol 6.25 mg tablet (Coreg) 6.25 mg PO BID #90 tabs 01/09/24
mirtazapine 7.5 mg tablet 7.5 mg PO HS 04/12/25
sertraline 50 mg tablet 50 mg PO BID 04/12/25
Review of Systems
-
History Source: Patient
A 12 point ROS was completed and negative except as noted: Yes
Constitutional: Reports Other (Falls x 2 past month); Denies Fever, Fatigue or Chills
EENT: Denies Sore Throat or Other (Bilateral hearing loss left greater than right)
Respiratory: Denies Cough or Trouble Breathing
Cardiac: Denies Chest Pain, Diaphoresis, Palpitations or Syncope
Abdomen/GI: Reports Diarrhea (Watery brown x 1 month); Denies Abdominal Pain, Nausea, Vomiting, Constipated, Bloody Stools or Black Stools
: Denies Dysuria, Frequency, Flank Pain, Incontinence, Difficulty Voiding or Urgency
Musculoskeletal: Denies Joint Pain or Edema
Skin: Reports Other (AV fistula left upper arm positive thrill); Denies Itching or Rash
Neurological: Reports Dizzy (Episode 1 month ago prior to fall); Denies Headache or Weakness
Endocrine: Reports No Symptoms
Hematologic/Lymphatic: Reports No Symptoms
Psych: Reports Calm
Physical Exam
Vital Signs
Vital Signs
Temp Pulse Resp BP Pulse Ox
98.3 F 46 20 155/59 96
04/12/25 14:14 04/12/25 14:14 04/12/25 14:14 04/12/25 14:14 04/12/25 14:14
Physical Exam
General: Comfortable and Conversant; No Pain, Fever or Chills
HEENT: NormoCephalic, Anicteric, PERRLA, Farnam Conjunctivae, No Ptosis, Neck Nontender and Other (Bilateral TMs intact no cerumen, left tympanic membrane slightly cloudy but visualization of landmarks present speech is clear patient able to
understand me at normal tone spoken)
Respiratory: Clear; No Wheezes or Rales
Cardiac: S1/S2 and Regular Rhythm; No Murmur, Rub, Gallop or Peripheral Edema
Breast: Deferred by me
GI: Soft, Non Tender, Non Distended, Normal Bowel Sounds and No Hepatosplenomegaly
Rectal: Deferred by Provider
Genito-urinary: Deferred by me
Musculoskeletal: No Clubbing, No Cyanosis and No Edema
Skin: Warm, Dry and Other (Left upper arm AV fistula positive thrill); No Rash or Jaundice
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
Speech, Facial Droop, Tremors or Sedated
Laboratory Results
-
04/12/25 14:28
04/12/25 14:28
Laboratory Results
Total Bilirubin 0.7 mg/dl (0.2-1.3) 04/12/25 14:28
AST 18 U/L (17-59) 04/12/25 14:28
ALT 16 U/L (0-50) 04/12/25 14:28
Alkaline Phosphatase 99 U/L (38-126) 04/12/25 14:28
Impression/Plan
-
Impression/plan:
OBS telemetry
#Acute on chronic ambulatory dysfunction with falls recent/bilateral hearing loss left greater than right concern possible CVA versus orthostatic hypotension due to dialysis/chronic diarrhea volume depletion
fall 3 days ago
#CVA in 1999 with left arm weakness can only lift to the level of the shoulder. lacunar infarcts bilateral cochran radiata, right basal ganglia, right thalamus
# Chronic dizziness
- Check orthostatic vitals
- Check MRI brain
-Carotid ultrasound
- Lipid profile, HgbA1c
- Consult neurology
-Recommend outpatient ENT for hearing test
- Continue atorvastatin 80 mg daily, Eliquis 2.5 mg twice daily
PT/OT/case management lives alone
CT head: Chronic lacunar infarcts of the bilateral cochran radiata, right basal ganglia and right thalamus mild age-related parenchymal atrophy, bilateral ocular lens implants, no acute intracranial abnormality
#Chronic watery brown diarrhea x 1 month-unclear etiology
Several episodes a day no recent antibiotics or travel
-Check stool WBC, stool culture, C. difficile
#Benign HTN
BP 155/59
-Continue losartan 25 mg daily with hold parameters, Coreg 6.25 mg p.o. twice daily, amlodipine 5 mg daily with hold parameters
#ESRD on HD Friday, Friday
#AV fistula 11/03/2020, left arm fistulogram 01/05/2021, 04/13/2021
#Stenting left upper extremity brachiocephalic fistula venous outflow stenosis Dr. Escobar 02/08/2022
#Balloon angioplasty proximal venous stenosis of the left upper arm AV fistula Dr. Escobar 02/04/2023
-Creat 5.7, bun 48
-Patient reports had dialysis today 3 hours via left upper arm fistula, patient follows with Dr. Vargas
- Consult Nephro
#BPH
-Continue tamsulosin 0.4 mg p.o. twice daily with hold parameters
#Anemia of chronic disease/ESRD
Hgb 9.6 baseline appears 9-11
#CAD/NE/CABG
#Stent March 2017, drug-eluting stent, multiple stents and PCI 2 stents to circumflex and PDA on 05/26/2008, 07/31/2011
#CABG x 3 vessel GALVEZ to LAD, vein graft OM 2 sequential to OM [address] Wilkes 05/19/2017
-Continue atorvastatin, Coreg 6.25 mg twice daily, Eliquis 2.5 mg twice daily
2D echo 03/02/2025 EF 50-55%, normal LVS LVSF, mild LVH, mild inferior septal hypokinesis, stage I diastolic dysfunction, severely dilated LA, moderate MR, mild TR, PASP 22 mmHg
#RBBB
#Paroxysmal A-fib
#Cardiac murmur
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
- Continue Eliquis 2.5 mg twice daily, Coreg 6.25 mg twice daily
#Chronic diastolic CHF
I/O, daily weights
-Continue Lasix 80 mg twice daily with hold parameters
#HLD
Continue atorvastatin
#Depression
Continue Zoloft 50 mg twice daily, mirtazapine 7.5 mg at bedtime
DVT prophylaxis
Continue Eliquis 2.5 mg twice daily
DNR per patient
--- NOTE | 2025-04-12 20:13 | W.PN.UPDATE ---
Update Note
Progress Note Update
This note serves as an addendum to the H&P by hand leather trimmer BRYAN Gi PRINCE
HPI
84M Lives alone HX ESRD, CHD on Fri and Sat by choice , stented CAD, FL, CABG, HX Prx AF on eliquis, HX CVA, Depression, limited RoM left shoulder seen at ER for falls:
- difficulty walking/balance issues for past one month and 2 falls w/ head injury
- Non of the falls associated with LoC
- last fall 2 d ago.
- Gait: slow and unsteady for 1 month
- denies vertigo type
- decreased hearing in left ear and thought he might have had a stroke.
- baseline very flat affect as per daughter
HX depression
Vital Signs
Temp Pulse Resp BP Pulse Ox
98.3 F 71 17 161/55 97
04/12/25 14:14 04/12/25 19:15 04/12/25 19:15 04/12/25 19:00 04/12/25 19:15
PE
Gen: conversant
HEENT: atraumatic
Neck: supple
Lungs: CTA
Cor: RRR S1 S2
Abdomen: soft benign
CLINICAL FELLOW: AAO3 , NFND , No resting tremors, No rigidity
MS:
Left upper arm AV fistula positive thrill
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
able to grasp objects from prior stroke in 1999
Gait: Steady gait walking back from bathroom,
Psych:
Labs
02/24/25 04/12/25
06:37 14:28
Hgb 11.1 L 9.6 L
MCV 94.7 H 91.1
Plt Count 102 L D 137
Potassium 5.0 4.6
Carbon Dioxide 29
BUN 56 H 48 H
Creatinine 8.7 H* 5.7 H*
EKG
NORMAL SINUS RHYTHM
RIGHT BUNDLE BRANCH BLOCK
INFERIOR INFARCT (CITED ON OR BEFORE 24-NOV-2023)
ABNORMAL ECG
WHEN COMPARED WITH ECG OF 14-AUG-2024 14:14,
QT HAS LENGTHENED
03/02/2025 TTE
EF 50-55%
normal LVS LVS
mild inferior septal hypokinesis
stage I diastolic dysfunction
severely dilated LA
moderate MR
mild TR
PASP [address] W/o Iv Contrast
Mild age-related parenchymal atrophy. Chronic lacunar infarcts of the bilateral cochran radiata, right basal ganglia, and right thalamus. No intra- or extra-axial mass, hemorrhage, or fluid collection. Moderate subcortical, deep, and periventricular
white matter low-attenuation, compatible with changes of chronic small vessel ischemic disease. Mild mucosal thickening of the bilateral maxillary sinuses. The mastoid air cells are clear. Bilateral ocular lens implants.
ASSESSMENT & PLAN
2 non traumatic falls in 4 week
Difficulty walking and balance issues
Acute on chronic ambulatory dysfunction
No extrapyramidal symptoms
No clinical evidence of Parkinsonism
HCT suggest chronic lacunar infarcts of the bilateral cochran radiata, right basal ganglia, and right thalamus
lives alone
- Ortho VSS
- agree with CUS
- Brain MRI
- Atorvastatin 80 mg daily,
- BUSINESS TECH[employer]OLOGY ARCHITECT Eliquis 2.5 mg twice daily
- PT
- Neuro consult
Chronic dizziness
B/L Hearing Loss L > R
- OP ENT
Chronic watery brown diarrhea of unclear etiology
Several episodes a day no recent antibiotics or travel
- stool WBC, Cx stool culture, C. difficile
Benign HTN
BP 155/59
- c/w losartan 25 mg daily with hold parameters, Coreg 6.25 mg p.o. twice daily, amlodipine 5 mg daily with hold parameters
HX ESRD on HD Friday, Friday
AV fistula 11/03/2020, left arm fistulogram 01/05/2021, 04/13/2021
Stenting left upper extremity brachiocephalic fistula venous outflow stenosis Dr. Escobar 02/08/2022
Balloon angioplasty proximal venous stenosis of the left upper arm AV fistula Dr. Escobar 02/04/2023
- Patient reports had dialysis today 3 hours via left upper arm fistula, patient follows with Dr. Vargas
- Consult Nephro
Anemia of chronic disease/ESRD
Interval new drop in Gfb Hgb 9.6 baseline appears 11
- No active bleed
- Trend Hgb
BPH
- c/w tamsulosin
HX stented CAD/FL/CABG
Stent March 2017, drug-eluting stent, multiple stents and PCI 2 stents to circumflex and PDA on 05/26/2008, 07/31/2011
CABG x [address] Wilkes 05/19/2017
HLD
- c/w atorvastatin, Coreg
Prx AF on Eliquis
- on BUSINESS TECHNOLOGY ARCHITECT Eliquis, Coreg
Chronic HFpEF
- c/w PO Lasix 80 mg BID
Depression
- cont. Zoloft 50 mg twice daily, mirtazapine 7.5 mg at bedtime
DVT Px: on [employer] TECH[employer]OLOGY ARCHITECT Eliquis
DNR
OBS TLM
--- NOTE | 2025-04-12 21:30 | PTCARENOTE ---
Received patient from ED at approx 2100. Patient ambulated with assistance from stretcher to bed. AAA x 3. Denies pain. Oriented to room Call linn in reach.
[2025-04-12] MEDS: REMERON 7.5 MG PO (21:45)
[2025-04-12] MEDS: COREG 6.25 MG PO (21:45)
[2025-04-12] MEDS: LASIX 80 MG PO (21:45)
[2025-04-12] MEDS: ELIQUIS 2.5 MG PO (21:45)
[2025-04-12] MEDS: FLOMAX PO (21:45)
[2025-04-12] MEDS: ZOLOFT 50 MG PO (21:45)
[2025-04-12] MEDS: FLOMAX 0.4 MG PO (21:48)
[2025-04-13] VITALS (8 sets, daily range): BP systolic 125–177; BP diastolic 43–76; PULSE 53–86; O2SAT 93–94; BMI 24.7
--- NOTE | 2025-04-13 02:00 | PTCARENOTE ---
Tele monitor occasionally showing patient in the [facility]. Patient is asymptomatic. GROUP SUPERVISOR YARD made aware via TT. Electrolytes added to AM labs.
[2025-04-13 07:33] LABS: Hematocrit 25.7 % (39.0-52.0); Hemoglobin 8.3 g/dL (13.0-18.0); Mean Corp Hgb Conc. 32.3 g/dL (33.0-37.0); Mean Corpuscular Hgb 29.9 pg (27.0-31.0); Mean Corpuscular Volume 92.4 fL (80.0-94.0); Mean Platelet Volume 12.2 fL (7.4-10.4); Platelet Count 114 10^3/uL (130-400); Red Blood Cell Count 2.78 10^6/uL (4.70-6.10); Red Cell Dist. Width 16.8 % (11.5-14.5); White Blood Cell Count 6.2 10^3/uL (4.8-10.8)
--- NOTE | 2025-04-13 07:39 | PTCARENOTE ---
Patient off unit for MRI.
--- NOTE | 2025-04-13 08:04 | CON.NEURO ---
Neuro Assessment/Plan
Assessment
Recurrent falling
MRI of brain failed to demonstrate an acute abnormality however there is evidence of chronic lacunar infarcts
Most likely secondary to vasovagal events with possible orthostasis most likely secondary to diffuse autonomic dysfunction and prior renal dysfunction
Plan
Check orthostatic blood pressures with 3-minute intervals between each body position change
Rehabilitation evaluations
Continue apixaban
Continue atorvastatin
Goal of normotension
Due to evidence of greater than 70% stenosis in the right carotid bulb by ultrasound, patient should have eventual evaluation by vascular surgery. Of note is that the patient's carotid stenosis is by no means symptomatic neurologically.
Will follow as outpatient
Consultation
Order
Date of Consultation: 04/13/25
Requesting Provider: Hospitalist
Reason for Consult: Gait dysfunction
Subjective/Objective
Subjective Data
Date of Service: April 13, 2025
Edited from my esteemed former colleague's consult note of March 09, 2017:
'Patient is a 76 years old male who has been admitted to the hospital since 07 of March with chest pain. Cardiology is of the opinion that patient may require a coronary artery bypass graft surgery for triple vessel disease. Patient is also found
to be having chronic anemia with a positive Hemoccult. GI needs to evaluate him for his chronic blood loss. Neurology has not been consulted because patient is on dual antiplatelet therapy with aspirin and Plavix for secondary prevention of stroke.
Patient has had had multiple strokes in the past; the latest one was about 2 weeks ago when he was admitted to the [facility] with a sudden loss of vision from his right eye. Both cardiology and gastroenterology consider dual antiplatelet
therapy a significant risk for their respective procedures and would like to withhold the medication for 5-7 day period prior to and during the procedures.
Patient currently reports that he does have continued loss of vision from his right eye. He also complains of chronic weakness in his left upper and lower extremity more in the left upper extremity. He denies any difficulty speaking/swallowing,
headache dizziness or facial weakness. He reports compliance with his medications.
Impression:
Mr. STACY VOSS is a 76 years old M who has presented to the hospital with chest pain. Neurology has been consulted to comment upon risks associated with holding his antiplatelet therapy for a possible coronary artery bypass graft and GI
evaluation for chronic anemia. His neurologic examination is remarkable for loss of vision from the right eye, left hemiparesis and hyperreflexia on the left side. There is no neuro imaging to review for this admission.
In my opinion, the withholding antiplatelet therapy (even though briefly) on the patient especially in view of his multiple strokes in the past the latest one as recent as 2 weeks ago, would expose him to a significant risk for future strokes in the
short-term. But at the same time, symptomatic coronary artery disease and anemia due, in themselves, carry a significant risk to patient's health and life both in short-term as well as long-term. I also agree with cardiology and GI teams' concerns
that patient needs to be off Plavix for 5-7 days pre-, and mack-procedurally.
At this time, the long-term benefit associated with patient getting a GI evaluation for anemia, and coronary artery bypass graft surgery would outweigh the short-term risk of new stroke associated with temporary withholding of Plavix for 5-7 days.
Moreover, a new acute ischemic stroke does not pose a threat to patient's life whereas a myocardial infarction does.
Recommendations:
In view of the above stated opinion that benefit of patient getting GI evaluation for anemia, and coronary artery bypass graft surgery would outweigh the risk of acute stroke associated with temporarily withholding Plavix, Plavix may be temporarily
withheld for the minimal and absolutely essential period prior to and during the procedures. My understanding is that patient will not at all be taken off aspirin. Plavix may be reinstituted at the first available opportunity after the procedures.'
The patient returned to this hospital on 04/12/2025 due to worsening balance for the last month. The patient reports 2 episodes of falling as well as dizziness. Falling took place according to records 2 weeks prior to presentation as well as 3 days
ago.
First episode at home after going to stand. Second episode standing and took 1.5 hour to stand again.
Objective Data
Vital Signs
Temp Pulse Resp BP Pulse Ox
36.7 C 76 14 125/46 94
04/13/25 03:29 04/13/25 03:29 04/13/25 03:29 04/13/25 03:29 04/13/25 03:29
Lab Results
04/13/25 06:22
Sodium 143 mmol/L (135-145) 04/12/25 14:28
Potassium 4.6 mmol/L (3.5-5.1) 04/12/25 14:28
BUN 48 mg/dl (9-20) H 04/12/25 14:28
Glucose 98 mg/dl (70-99) 04/12/25 14:28
Calcium 9.0 mg/dl (8.4-10.2) 04/12/25 14:28
Patient Allergies
No Known Allergies Allergy (Verified 04/12/25 14:18)
Review of Systems
-
History Source: Patient
All other systems: Reviewed and negative
EENT: Negative Blurry Vision or Swallowing Difficulty
Respiratory: Negative Trouble Breathing
Cardiac: Negative Chest Pain
Abdomen/GI: Negative Incontinence of Stool
Genitourinary: Negative Incontinence
Musculoskeletal: Negative Back Pain or Neck Pain
Neuro: Weakness (starting in 02/2025 in BLEs); Negative Dizzy or Headache
Physical Exam
-
General: No Apparent Distress and Appears Stated Age
Eyes: Round [place]U, [place] Conjunctivae and No Ptosis
HEENT: Anicteric and Moist Mucous Membranes
Neck: Full Range of Motion
Respiratory: No Dyspnea
Cardiac: No JVD
GI: Non-distended
Extremities: No Clubbing, No Cyanosis and No Edema
Psych: Intact Judgement/Insight
Extended Neurological Exam
Mood & Affect: Mood Unremarkable and Affect Unremarkable
Attention Span & Concentration: Awake, Alert, Interactive and No Difficulty with 2 Step Request
Memory: Unremarkable
Tremor: Hand Tremor Absent and Head Tremor Absent
Speech: Quality Unremarkable and Quantity Unremarkable
Cranial Nerve II: Left Eye: Pupillary Reactivity Unremarkable, Pupillary Size Unremarkable and Visual [place] Intact
Cranial Nerve II: Right Eye: Pupillary Reactivity Unremarkable, Pupillary Size Unremarkable and Other (No vision)
Cranial Nerves III, IV, : Extraocular Movement: Extraocular Movement Full in all Directions and Other (Right eye 1+ exophoria)
Cranial Nerve VII: Facial Symmetry: Normal Facial Symmetry
Cranial Nerve VIII: Hearing: Unremarkable Hearing to Normal Conversational Volume
Cranial Nerves IX, X: Palate Movement: Palate Elevation Symmetric
Cranial Nerve XI: Shoulder Shrug: Unremarkable
Cranial Nerve XII: Tongue Protusion: Midline
Muscle Strength, Overall: Full Throughout
Muscle Bulk & Tone: Bulk Unremarkable and Tone Unremarkable
Pronator Drift: No Drift in Upper Extremities and No Drift in Lower Extremities
Deep Tendon Reflexes: Absent Throughout
Touch Sensation: Unremarkable
Coordination: [id number] Testing Unremarkable
Babinski Sign: Absent Bilaterally
Data Reviewed
-
MRI Head: Report Reviewed and Image Reviewed
Labs: Report Reviewed
Reviewed with: Physician and Patient
Old Records: Summarized
Medications
-
Active Medications
Generic Name Dose Route Start Last Admin
Trade Name Freq PRN Reason Stop Dose Admin
Acetaminophen 650 mg 04/12/25 20:47
Acetaminophen 325 Mg Tablet PO 05/10/25 20:46
Q4HPRN PRN
mild pain/LYON/temp> 100.4F
Amlodipine Besylate 5 mg 04/13/25 08:00
Amlodipine 5 Mg Tablet PO 05/11/25 07:59
DAILY ZACHARY
Apixaban 2.5 mg 04/12/25 20:47 04/12/25 21:45
Apixaban (Eliquis) 2.5 Mg Tablet PO 05/10/25 20:46 2.5 mg
BID ZACHARY Administration
Atorvastatin Calcium 80 mg 04/13/25 08:00
Atorvastatin (Lipitor) 80 Mg Tablet PO 05/11/25 07:59
DAILY ZACHARY
Carvedilol 6.25 mg 04/12/25 20:47 04/12/25 21:45
Carvedilol 6.25 Mg Tablet PO 05/10/25 20:46 6.25 mg
BID ZACHARY Administration
Furosemide 80 mg 04/12/25 20:47 04/12/25 21:45
Furosemide 80 Mg Tablet PO 05/10/25 20:46 80 mg
BID AT 0800,1600 ZACHARY Administration
Losartan Potassium 25 mg 04/13/25 08:00
Losartan 25 Mg Tablet PO 05/11/25 07:59
DAILY ZACHARY
Mirtazapine 7.5 mg 04/12/25 22:00 04/12/25 21:45
Mirtazapine 7.5 Mg Regular Release Tablet PO 05/10/25 21:59 7.5 mg
HS ZACHARY Administration
Pantoprazole Sodium 40 mg 04/13/25 08:00
Pantoprazole 40 Mg Delayed Release Tablet PO 05/11/25 07:59
DAILY ZACHARY
Sertraline HCl 50 mg 04/12/25 20:47 04/12/25 21:45
Sertraline 50 Mg Tablet PO 05/10/25 20:46 50 mg
BID ZACHARY Administration
Sodium Chloride 0 flush 04/12/25 21:00
Sodium Chloride 0.9% (Flush) Syringe IV 05/10/25 20:59
PER PROTOCOL ZACHARY
Tamsulosin HCl 0.4 mg 04/12/25 20:47 04/12/25 21:48
Tamsulosin 0.4 Mg Capsule PO 05/10/25 20:46 0.4 mg
BID ZACHARY Administration
Home Medications
�Medication �Instructions �Recorded
apixaban 2.5 mg tablet (Eliquis) 2.5 mg PO BID blood thinner #60 05/12/21
tabs
atorvastatin 80 mg tablet 80 mg PO DAILY High cholesterol 01/03/22
tamsulosin 0.4 mg capsule 0.4 mg PO BID Urinary issue 02/08/22
pantoprazole 40 mg tablet,delayed 40 mg PO DAILY #30 tabs 12/02/23
release
amlodipine 5 mg tablet 5 mg PO DAILY Blood pressure #30 12/16/23
tabs
furosemide 80 mg tablet 80 mg PO BID Fluid 01/06/24
Retention/Swelling
losartan 25 mg tablet 25 mg PO DAILY Blood Pressure 01/06/24
carvedilol 6.25 mg tablet (Coreg) 6.25 mg PO BID #90 tabs 01/09/24
mirtazapine 7.5 mg tablet 7.5 mg PO HS 04/12/25
sertraline 50 mg tablet 50 mg PO BID 04/12/25
Past History
Past History
ED Past Medical History: Arrthythmia (Atrial fib), CAD, CHF, CVA (Left sided weakness slight), HTN, Hypercholesterolemia, NIDDM, NV, Renal failure (Dialysis Friday and Friday) and Other (TIA 2002, Diverticulosis, Anemia, right central retinal
artery occlusion)
ED Past Surgical History: Cardiac (Cardiac stents, LINQ device placement, CABG) and Other (Cataracts, Left arm fistula)
Social History
Tobacco: Former smoker
Alcohol: None
Personal:
Living: alone
Employment: Retired
Family History
Family History: Other (Reviewed and noncontributory)
[2025-04-13 08:16] LABS: ALT (SGPT) 14 U/L (0-50); AST (SGOT) 14 U/L (17-59); Alkaline Phosphatase 89 U/L (38-126); Blood Urea Nitrogen 64 mg/dl (9-20); Carbon Dioxide 22 mmol/L (22-30); Chloride 105 mmol/L (98-107); Estimated Creatinine Clearance 8 ml/min; Glucose 122 mg/dl (70-99); HDL Cholesterol 43 mg/dl; LDL Cholesterol, Calculated 51 mg/dl; Magnesium 1.9 mg/dl (1.6-2.3); Potassium 4.3 mmol/L (3.5-5.1); Sodium 142 mmol/L (135-145); Total Bilirubin 0.5 mg/dl (0.2-1.3); Total Cholesterol 116 mg/dl (50-199); Total Protein 6.1 g/dl (6.3-8.2); Triglyceride 112 mg/dl (10-149); Very Low Density Lipoprotein 22 mg/dl (0-30)
[2025-04-13 08:26] LABS: Absolute Neutrophils -Man Diff 3.2 10^3/uL (1.4-6.5); Band Neutrophils 0 % (0-3); Eosinophils 2 % (0-6); Lymphocytes 21 % (20-51); Monocytes 18 % (2-9); Myelocytes 6 % (-); Normal RBC Morphology Yes; Platelets Checked Yes; Segmented Neutrophils 53 % (42-75); Total Cells Counted 100
[2025-04-13 09:08] LABS: Glycohemoglobin (HgbA1c) 5.8 % (4.0-5.6)
[2025-04-13] MEDS: LASIX 80 MG PO ×2 (10:35→18:04)
[2025-04-13] MEDS: ELIQUIS 2.5 MG PO ×2 (10:35→20:24)
[2025-04-13] MEDS: FLOMAX 0.4 MG PO ×2 (10:36→20:24)
[2025-04-13] MEDS: ZOLOFT 50 MG PO ×2 (10:36→20:24)
[2025-04-13] MEDS: COZAAR 25 MG PO (10:36)
[2025-04-13] MEDS: NORVASC 5 MG PO (10:36)
[2025-04-13] MEDS: PROTONIX 40 MG PO (10:36)
[2025-04-13] MEDS: LIPITOR 80 MG PO (10:36)
[2025-04-13] MEDS: COREG 6.25 MG PO ×2 (10:36→20:24)
--- NOTE | 2025-04-13 10:52 | W.CON.NEPH ---
Consultation
-
Date/Time Consultation Requested: 04/12/25 2415
Date/Time Consultation Performed: 04/13/25 1040
Requesting Provider: Arthur Dinero
Performing Provider: molly Carvajal
Reason for Consultation: ESRD
Medical History
-
Chief Complaint: Frequent falls
History of Present Illness:
The patient is an 83-year-old male with a past medical history of end-stage renal disease who dialyzes only on Tuesdays and Saturdays (by his choice), at [facility] dialysis unit. His last dialysis was this past Friday as he refuses to
show up on . He has baseline uncontrolled hypertension due to his noncompliance with dialysis modality. He is maintained on amlodipine , losartan and carvedilol for his hypertension. He receives ROB therapy on dialysis for his anemia of
chronic kidney disease and is chronically anticoagulated for paroxysmal A-fib. His past medical history also includes CAD status post PCI to the RCA. He is also status post CABG in 2017, CVA presenting to the emergency department with frequent
falls, reported 2 falls over the past month and worsening balance. He has chronic intermittent dizziness, He reports hearing loss is worse in his left ear he did have the ear wax removed 1 month ago. He had complaining of diarrhea for a couple
weeks to the ER he denies current headache, fever, chills, chest pain, shortness of breath, abdominal pain, nausea, vomiting. He denies any dysuria. He completed HD yesterday with out difficulty. HIs BPs were high on reviewing records. Nephrology
consulted for HD needs.
Past Medical History
Status post RCA stent on 11/26/23
[facility] [place]
Diarrhea chronic
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
Hypertension
Atrial fibrillation
BPH
Anemia of CKD
CAD/CABG 2016
Cerebrovascular disease
TIA 2002
History ESBL Klebsiella pneumoniae UTI
Gout
Medical noncompliance (allows only two 3-hour HD treatments weekly)
Past Surgical History: Other (Stent March 2017, drug-eluting stent, multiple stents and PCI 2 stents to circumflex and PDA on 05/26/2008, 07/31/2011 CABG x 3 vessel GALVEZ to LAD, vein graft OM [address] Wilkes 05/19/2017 AV fistula
11/03/2020, left arm fistulogram 01/05/2021, 04/13/2021 Stenting left upper extremity brachi)
Social History
Tobacco: Former Smoker
Alcohol: None
Family History
no ckd
Allergies / Home Medications
Allergy/AdvReac Type Severity Reaction Status Date / Time
No Known Allergies Allergy Verified 04/12/25 14:18
�Medication �Instructions �Recorded �Confirmed �Type
apixaban 2.5 mg tablet (Eliquis) 2.5 mg PO BID blood thinner #60 05/12/21 04/12/25 Rx
tabs
atorvastatin 80 mg tablet 80 mg PO DAILY High cholesterol 01/03/22 04/12/25 History
tamsulosin 0.4 mg capsule 0.4 mg PO BID Urinary issue 02/08/22 04/12/25 History
pantoprazole 40 mg tablet,delayed 40 mg PO DAILY #30 tabs 12/02/23 04/12/25 Rx
release
amlodipine 5 mg tablet 5 mg PO DAILY Blood pressure #30 12/16/23 04/12/25 Rx
tabs
furosemide 80 mg tablet 80 mg PO BID Fluid 01/06/24 04/12/25 History
Retention/Swelling
losartan 25 mg tablet 25 mg PO DAILY Blood Pressure 01/06/24 04/12/25 History
carvedilol 6.25 mg tablet (Coreg) 6.25 mg PO BID #90 tabs 01/09/24 04/12/25 Rx
mirtazapine 7.5 mg tablet 7.5 mg PO HS Mental Health/Anxiety 04/12/25 04/12/25 History
sertraline 50 mg tablet 50 mg PO BID Depression 04/12/25 04/12/25 History
Review of Systems
-
All other systems: Negative unless noted
Physical Exam
Vital Signs
Vital Signs
Temp Pulse Resp BP Pulse Ox
97.9 F 52 16 133/43 98
04/13/25 16:34 04/13/25 16:34 04/13/25 16:34 04/13/25 16:34 04/13/25 16:34
Lab Results
WBC 6.2 10^3/uL (4.8-10.8) 04/13/25 06:22
RBC 2.78 10^6/uL (4.70-6.10) L 04/13/25 06:22
Hgb 8.3 g/dL (13.0-18.0) L 04/13/25 06:22
Hct 25.7 % (39.0-52.0) L 04/13/25 06:22
Plt Count 114 10^3/uL (130-400) L 04/13/25 06:22
Sodium 142 mmol/L (135-145) 04/13/25 06:22
Potassium 4.3 mmol/L (3.5-5.1) 04/13/25 06:22
Chloride 105 mmol/L (98-107) 04/13/25 06:22
Carbon Dioxide 22 mmol/L (22-30) 04/13/25 06:22
BUN 64 mg/dl (9-20) H 04/13/25 06:22
Creatinine 7.2 mg/dL (0.7-1.3) H* 04/13/25 06:22
eGFR 6.90 04/13/25 06:22
Glucose 122 mg/dl (70-99) H 04/13/25 06:22
Calcium 8.0 mg/dl (8.4-10.2) L 04/13/25 06:22
Albumin 4.0 g/dl (3.5-5.0) 04/13/25 06:22
Physical Exam
General: Awake, Alert, Oriented, AOx3, No Distress and Nontoxic
HEENT: EOMI, Anicteric, Conjunctivae Clear, Facial Symmetry and Neck Supple
Respiratory: Clear, Normal Excursion and Nonlabored Respirations
Cardiac: S1/S2 and Regular Rate/Rhythm
Breast: Deferred by me
Abdomen: Soft and Nontender
Musculoskeletal: No Cyanosis and No Edema
Skin: No Rash
Neuro: Nonfocal/Grossly Intact
Vascular Access: AVF
Data Reviewed
-
Labs: Labs Reviewed by me, Discussed with Physician, Discussed with Nurse and Discussed with Patient
Assessment/Plan
-
Impression:
Acute on chronic ambulatory dysfunction with falls
recent/bilateral hearing impairment left greater
Chronic dizziness
Chronic watery brown diarrhea x 1 month-unclear etiology
[facility] [place]
Benign HTN
AV fistula last fistulogram 02/2025
BPH
Anemia of chronic disease/ESRD
CAD/SC/CABG s/p stent 11/2023
RBBB
Paroxysmal A-fib
Cardiac murmur
Bradycardia due to labetalol
Chronic diastolic CHF
HLD
Depression
Gout
Medical noncompliance (allows only two 3-hour HD treatments weekly)
Plan:
A/w frequent fall, neuro follows
+ve orthostatic seem chronic issues
UF usually on HD is limited due to his symptoms
his BP are high during hd at out pt
start TEDs
Maintain oral antihypertensives for hypertension
renal diet
next HD friday
he still makes urine hence cont lasix
carotid US today
d/w pt and nursing
d/w primary
--- NOTE | 2025-04-13 11:51 | CM ---
CM reviewed chart, patient seen bedside, initial assessment completed. Patient resides in a two story home, no steps to enter. Patient reports having two walkers at home, history of VN in past, denies SNF. Patient confirms HD Tu and Sat at [facility]
[place], 5:30 a.m. chair time. Patient confirms PCP Jose Tamez, pharmacy [facility], confirms prescription coverage. Patient provided with [facility] form, verbally reviewed, placed in chart. CM discussed PT recommendation of SNF, patient not
agreeable to rehab, offered VN, patient not agreeable at this time. CM will continue to follow for all discharge planning needs.
Plan; home with outpatient HD, declining SNF, declining VN
[facility]
--- NOTE | 2025-04-13 16:09 | DOWNTIME ---
There was a [employer] Service Dispatcher Downtime on 04/13/2025 from 1230 to 04/13/2025 at 1550. Downtime documentation of patient's care, including medication administrations, has been reconciled in the electronic record per guidelines. Refer to the
patient's paper chart under the miscellaneous tab to see printed paper medication records and downtime forms.
--- NOTE | 2025-04-13 16:59 | W.PN.HOSP.TC ---
Addendum entered and electronically signed by Humza Judd MD 04/13/25 17:44:
Seen and examined by me independently in collaboration with the medical affairs leader.
Lab data and imaging data reviewed.
Addendum as below :
No evidence of acute stroke on MRI of brain. Multiple small chronic lacunar infarcts with moderate chronic microvascular white matter ischemic changes noted.
Orthostatic drop noted. His weight is the lowest in [facility] system. He says he lost 20 pounds of weight since he went on dialysis. He only receives dialysis twice at week.
His symptoms are orthostatic more so. He also has balance issues at the times. I suspect some of his symptoms are related to orthostatic hypotension. I will consult nephrology regarding his ideal goal weight and make sure his not to below his
goal weight account for his orthostatic symptoms. No evidence of extrarenal losses. Check TSH and cortisol and consider midodrine. He is known to have hypertension and blood pressure readings were high here. Continue with antihypertensives for
now.
He does have bigeminy but no evidence of any tacky arrhythmias on the monitor. Patient denies any palpitations or loss of consciousness. Continue with telemetry.
Discussed with neurology.
Total time spent on today's encounter was 52 minutes which included time spent in counseling the patient/family regarding diagnosis and treatment plan as listed above, goals of care, and symptom management. Case was discussed with nursing staff,
specialists, and care coordinators/case management. All labs and imaging personally reviewed by me. Remainder the time spent in detailed review of previous records, lab data, imaging, and other medical provider documentation.
Original Note:
Today's Communication/Plan
-
Continue home medications.
PT and OT evaluations.
Nephrology evaluation, carotid ultrasounds
Assessment / Plan
Assessment / Plan
[id number]-old male with PMHx significant for CAD,-PCI x 2 for circumflex, and PDA, history of CVA, RBBB, paroxysmal A-fib, ESRD on hemodialysis, benign HTN, dizziness, hyperlipidemia, depression presents to the hospital for evaluation of
recurrent mechanical falls-with no prodrome.
Plan-
Recurrent falls-
CT of the head showed no evidence of new stroke
MRI of the brain failed to demonstrate any acute abnormality.
Orthostatic vital signs positive.
Most likely secondary to vasovagal events from previous renal dysfunction versus autonomic dysfunction.
Compression stockings, abdominal binders.
Patient has been on his dry side with lowest weight. Dry target weight unknown. Could also be vasovagal from volume depletion after dialysis.
Noncompliant with dialysis, on Lasix 80 twice daily.
Ultrasound of the carotids showed bilateral 70% stenosis-likely asymptomatic. Appreciate neurology help in evaluating patient.
Vascular surgery consulted.
Consult PT and OT to evaluate for mechanical falls.
Chronic watery brown diarrhea-
Intermittent, no recent history of travel, no recent antibiotics.
Formed stools, unlikely C. difficile.
Salmonella Shigella and Campylobacter pending.
Stool WBC pending. Will order fecal calprotectin, suspect less likely to be infectious in etiology.
Chronic dizziness-
Bilateral hearing loss left greater than right.
ENT evaluation outpatient.
Patient denies tinnitus.
ESRD on hemodialysis-Friday, Friday.
Reviewed with nephrology, left arm fistulogram on 01/05/2021, 04/13/2021.
Stenting of the left upper extremity brachiocephalic fistula for venous outflow stenosis on 02/08/2022, balloon angioplasty for proximal venous stenosis on 02/04/2023.
Most recent dialysis-on 04/12/2025.
Reviewed with nephrology, patient noncompliant, and on Friday and Friday regimen by his choice (although nephrology would not recommend it).
On high dose of Lasix, still having urine output.
Monitor urine output, appreciate nephrology inputs.
Paroxysmal A-fib-
On carvedilol and Eliquis.
[id number] score-5.
Eliquis reduced dosing.-Age 84, ESRD.
CAD/HI-
Continue atorvastatin and Coreg.
Chronic HFpEF-
P.o. Lasix 80 twice daily-continue
Depression-
Home meds Zoloft and mirtazapine.
Continue Zoloft and mirtazapine.
BPH-
Continue with tamsulosin.
Anemia of chronic disease-
Hemoglobin at 8.6.
No active bleed
Trend hemoglobin.
DVT prophylaxis-
Patient on Eliquis.
CODE STATUS-
DO NOT RESUSCITATE.
Anticipated Discharge: > 48 hours
Subjective/Interval History
-
Date of Service: April 13, 2025
Met the patient today for the first time. Patient states that he had about 2 falls in the last 1 month with the most recent fall being yesterday. His falls usually happen without any prodrome of symptoms or warning signs. He did not loose
consciousness during the falls. He reports to have extreme dizziness after every dialysis episode, feels wobbly on his legs, and has been experiencing unsteadiness over the last 1 month. Over the last 2 falls he hit his head, and could not hear
from his left ear and right ear's, left greater than right. Patient also denies having any neck pain, bilateral leg pain, joint aches, muscle weakness. He is unsure what his dry weight is. When reviewed his records he is at a weight of 75 kgs
-which has been his lowest weight so far. Patient denies having any bowel incontinence, bladder incontinence, lightheadedness, vertigo, dizziness, nausea, emesis, blurring of vision.
Patient denies having any focal weakness, paresthesias, tingling or numbness.
He also reports to have intermittent episodes of diarrhea-watery loose stools, 3 episodes a day lasting for about 5 days to 1 week. The maximum number of weeks he has been symptom-free is 2 weeks so far. He has been having ongoing diarrheal
episodes for last few months.
Of note, he is on Friday and Friday dialysis regimen per his will, missed about 5 dialysis episodes in the last 1 month. This is one of the reasons why he continues to remain on Lasix 80 twice daily.
Objective Data
-
Labs:
Laboratory Results
04/13/25
06:22
WBC 6.2
Hgb 8.3 L
Hct 25.7 L
Plt Count 114 L
Sodium 142
Potassium 4.3
Chloride 105
Carbon Dioxide 22
BUN 64 H
Creatinine 7.2 H*
Glucose 122 H
Calcium 8.0 L
Total Bilirubin 0.5
AST 14 L
ALT 14
Alkaline Phosphatase 89
Vital Signs:
Vital Signs
Temp Pulse Resp BP Pulse Ox
97.9 F 52 16 133/43 98
04/13/25 16:34 04/13/25 16:34 04/13/25 16:34 04/13/25 16:34 04/13/25 16:34
Review of Systems
-
History Source: Patient
Constitutional: Reports No Symptoms
EENT: Reports Hearing Loss (Bilateral ears, left greater than right.)
Respiratory: Denies Cough or Trouble Breathing
Cardiac: Denies Chest Pain, Palpitations, Syncope or Orthopnea
Abdomen/GI: Reports Diarrhea; Denies Abdominal Pain, Nausea or Vomiting
Genitourinary: Reports No Symptoms and Other (Still making urine,)
Musculoskeletal: Reports No Symptoms
Skin: Reports No Symptoms
Neuro: Reports No Symptoms
Hematologic / Lymphatic: Reports No Symptoms
Allergy / Immunology: Reports No Symptoms
Physical Exam
-
General: No Apparent Distress and Comfortable
HEENT: Moist Mucous Membranes, Anicteric and [place] Conjunctivae
Respiratory: Clear to Auscultation and Crackles; Negative Wheezes, Rales or Rhonchi
Cardiac: Regular Rhythm, S1/S2 and Murmur (Systolic's 3/6 in intensity best heard in aortic and pulmonary areas); Negative Rub or Gallop
GI: Soft, Nontender, Nondistended and Normal Bowel Sounds
Genito-urinary: No Costovertebral Tender
Musculoskeletal: No Clubbing, No Cyanosis and No Edema
Skin: Warm
Neuro: AO x 3, No Motor Deficits and Other (Right eye exophoria (present since 2017), no facial asymmetry noted, no pronator drift, no deep tendon reflexes, [id number] test unremarkable, no dysdiadochokinesia, Romberg's negative, gait-guarded.);
Negative Tremors
Psych: Calm
Data Reviewed
-
MRI: Image personally visualized and interpreted (With help of Dr. Mooney), Report Reviewed by me and Discussed with Physician
Medical Tests (Nuc Med, Echo etc): Image personally visualized and interpreted, Report Reviewed by me and Discussed with Physician
Labs: Labs Reviewed by me, Discussed with Physician and Discussed with Nurse
[2025-04-13] MEDS: REMERON 7.5 MG PO (21:53)
[2025-04-14 01:26] LABS: Urine Albumin 3+ (Neg - Trace); Urine Bilirubin Negative (Negative); Urine Character Clear (Clear); Urine Color Yellow; Urine Glucose Negative (Negative); Urine Ketone Negative (Negative); Urine Leukocyte Negative (Negative); Urine Nitrite Negative (Negative); Urine Occult Blood 1+ (Negative); Urine Specific Gravity 1.025 (<1.030); Urine Urobilinogen Negative (Neg - 1+)
[2025-04-14 02:51] LABS: Urine Squamous Cell >30 /LPF (Few)
[2025-04-14 03:12] VITALS: BP 135/55
[2025-04-14 06:00] VITALS: BMI 25.0
[2025-04-14 07:00] VITALS: BP 163/64
[2025-04-14 07:52] LABS: Hematocrit 25.8 % (39.0-52.0); Hemoglobin 8.3 g/dL (13.0-18.0); Mean Corp Hgb Conc. 32.2 g/dL (33.0-37.0); Mean Corpuscular Hgb 30.5 pg (27.0-31.0); Mean Corpuscular Volume 94.9 fL (80.0-94.0); Mean Platelet Volume 11.7 fL (7.4-10.4); Platelet Count 112 10^3/uL (130-400); Red Blood Cell Count 2.72 10^6/uL (4.70-6.10); Red Cell Dist. Width 16.5 % (11.5-14.5); White Blood Cell Count 5.4 10^3/uL (4.8-10.8)
[2025-04-14] MEDS: LIPITOR 80 MG PO (09:31)
[2025-04-14] MEDS: PROTONIX 40 MG PO (09:31)
[2025-04-14] MEDS: ELIQUIS 2.5 MG PO (09:32)
[2025-04-14] MEDS: ZOLOFT 50 MG PO (09:32)
[2025-04-14] MEDS: FLOMAX 0.4 MG PO (09:32)
[2025-04-14] MEDS: LASIX 80 MG PO (09:32)
[2025-04-14] MEDS: NORVASC 5 MG PO (09:33)
[2025-04-14] MEDS: COREG 6.25 MG PO (09:33)
[2025-04-14] MEDS: COZAAR 25 MG PO (09:34)
--- NOTE | 2025-04-14 09:42 | CON.VAS ---
Consultation
Consultation Request
Date/Time Consultation Performed: 04/14/25 0945
Requesting Provider: Hospitalist
Performing Provider: Annelise Romero, CORINA-C for Prashant Hernandez M.D.
Reason for Consultation: Asymptomatic carotid stenosis
Medical History
-
Chief Complaint: Ataxia
History of Present Illness:
This is a 84-year-old male with significant past medical history for atrial fibrillation, right bundle branch block, CAD, stroke, renal failure on HD, anemia, hypertension, hyperlipidemia, and depression who presented to [facility] ED on 04/12/2025
with reports of worsening balance, dizziness, some hearing loss in his left ea intermittently occurring over the past month. He was seen by neurology, and as part of workup had carotid duplex. We were consulted for evaluation of asymptomatic
carotid stenosis right greater than left. Patient has a history of end-stage renal disease on hemodialysis (prior fistula created by [facility], and subsequent fistulogram/angioplasty most recently 02/18/2025). Patient specifically denies any episodes of
amaurosis, unilateral numbness or weakness, speech dysarthria. He does endorse history of stroke which left him with mild left upper extremity weakness.
Past Medical History
Past Medical History: Arrhythmias (RBBB, Paroxysmal A-fib, Bradycardia due to labetalol), CAD, CVA (Left-sided weakness), Renal Failure (ESRD on HD Friday by his choice) and Other (Anemia of chronic disease, hypertension, dizziness,
hyperlipidemia, depression)
Past Surgical History: Cardiac (Cardiac catherization w/ PCI (Stent March 2017, drug-eluting stent, multiple stents and PCI 2 stents to circumflex and PDA on 05/26/2008, 07/31/2011), CAD/NE/CABG x 3 vessel 05/19/2017 GALVEZ to LAD, vein graft OM 2
sequential to OM [address] Wilkes 05/19/2017) and Other (AV fistula 11/03/2020, left arm fistulogram 01/05/2021, 04/13/2021)
Social History
Tobacco: Non-Smoker
Alcohol: None
Drug: None
Personal: Single
Living: Alone
Family History
Family History: Other (Father age 61 NE Mother age 70 CVA Son from suicide Son bladder cancer)
Allergies / Home Medications
Allergy/AdvReac Type Severity Reaction Status Date / Time
No Known Allergies Allergy Verified 04/12/25 14:18
�Medication �Instructions �Recorded �Confirmed �Type
apixaban 2.5 mg tablet (Eliquis) 2.5 mg PO BID blood thinner #60 05/12/21 04/12/25 Rx
tabs
atorvastatin 80 mg tablet 80 mg PO DAILY High cholesterol 01/03/22 04/12/25 History
tamsulosin 0.4 mg capsule 0.4 mg PO BID Urinary issue 02/08/22 04/12/25 History
pantoprazole 40 mg tablet,delayed 40 mg PO DAILY #30 tabs 12/02/23 04/12/25 Rx
release
amlodipine 5 mg tablet 5 mg PO DAILY Blood pressure #30 12/16/23 04/12/25 Rx
tabs
furosemide 80 mg tablet 80 mg PO BID Fluid 01/06/24 04/12/25 History
Retention/Swelling
losartan 25 mg tablet 25 mg PO DAILY Blood Pressure 01/06/24 04/12/25 History
carvedilol 6.25 mg tablet (Coreg) 6.25 mg PO BID #90 tabs 01/09/24 04/12/25 Rx
mirtazapine 7.5 mg tablet 7.5 mg PO HS Mental Health/Anxiety 04/12/25 04/12/25 History
sertraline 50 mg tablet 50 mg PO BID Depression 04/12/25 04/12/25 History
Review of Systems
-
History Source: Patient
All other systems: Negative unless noted
Constitutional: Reports No Symptoms
EENT: Reports Other (Left hearing loss)
Respiratory: Reports No Symptoms
Cardiac: Reports No Symptoms
Abdomen/GI: Reports Diarrhea
: Reports No Symptoms
Musculoskeletal: Reports No Symptoms
Skin: Reports No Symptoms
Neurological: Reports Dizzy and Other (Incoordination, falls due to imbalance)
Endocrine: Reports No Symptoms
Physical Exam
Vital Signs
Temp Pulse Resp BP Pulse Ox
98.1 F 74 19 163/64 100
04/14/25 07:00 04/14/25 09:34 04/14/25 07:00 04/14/25 09:34 04/14/25 07:00
Lab Results
04/14/25 06:58
Physical Exam
General: No Apparent Distress
HEENT: Normocephalic, Anicteric and Atraumatic
Respiratory: Non Labored Respirations
Cardiac: Negative JVD
GI: Soft, Non Tender and Non Distended
Musculoskeletal: No Edema and Other (Left upper extremity AV fistula with palpable thrill, unable to palpate distal DP/PT pulses)
Skin: Warm
Neuro: Awake and Alert
Assessment / Plan
-
Assessment: 84-year-old male admitted for ataxia, and reports of left hearing loss with incidental finding of asymptomatic bilateral carotid stenosis prompting vascular surgical consultation
Plan:
Asymptomatic bilateral carotid stenosis, right side greater than 70%, left side either 50 to 69%, or alternatively greater than 70% sort of on the cusp. He is asymptomatic and therefore no urgent indication for revascularization. However would
pursue CT angiogram given bilateral potentially high-grade stenoses. He can follow-up in the office (known to Shawn, so can follow-up with him) within the next month after completion of CT angiogram that can be obtained in the outpatient setting.
Appointment for CT angiogram of head and neck and outpatient vascular surgery appointment placed in discharge instructions.
Suspect he also has a degree of peripheral arterial disease due to nonpalpable distal pulses. However, at this time he denies rest pain/tissue loss. No chronic limb threatening ischemia. However, can get baseline noninvasive ultrasound studies
and can continue to follow-up in the office with us.
Please call with questions or concerns we will sign off
I performed this shared service with the attending. I evaluated the patient [id number] and have entered clinical documentation as shown in the encounter note. I performed the following component(s):�history and physical exam. Note that medical
decision making is not final until attested by vascular attending.
--- NOTE | 2025-04-14 09:45 | W.PN.UPDATE ---
Update Note
Progress Note Update
Seen and evaluated with CORINA Romero. Full consultation to follow. Briefly 84-year-old male presented with worsening balance, dizziness, some hearing loss in his left ear. He was seen by neurology, and as part of workup had carotid duplex. We were
consulted for evaluation of asymptomatic carotid stenosis right greater than left. Patient has a history of end-stage renal disease on hemodialysis (prior fistula created by Shawn, and subsequent fistulogram/angioplasty most recently 02/18/2025).
Patient specifically denies any episodes of amaurosis, unilateral numbness or weakness, speech dysarthria.
On exam/he is awake and alert. No acute distress. Breathing is unlabored. Neurologically no focal deficits. Left upper extremity fistula with good thrill. Nonpalpable pedal pulses bilaterally.
Carotid duplex reviewed.
MRI report reviewed.
Plan/
1. Asymptomatic bilateral carotid stenosis, right side greater than 70%, left side either 50 to 69%, or alternatively greater than 70% sort of on the cusp. He is asymptomatic and therefore no urgent indication for revascularization. However would
pursue CT angiogram given bilateral potentially high-grade stenoses. He can follow-up in the office (known to Shawn, so can follow-up with him) within the next month after completion of CT angiogram.
2. Peripheral arterial disease. Nonpalpable distal pulses. No ischemic rest pain/tissue loss. No chronic limb threatening ischemia. However can get baseline noninvasive ultrasound studies and can continue to follow-up in the office with us.
3. End-stage renal disease on hemodialysis. Fistula working well. No active issues.
--- NOTE | 2025-04-14 09:51 | W.PN.HOSP.TC ---
Addendum entered and electronically signed by Humza Judd MD 04/14/25 13:02:
Seen and examined by me independently in collaboration with the nuclear medical technologist.
Lab data and imaging data reviewed.
Addendum as below :
No episodes of loss of consciousness, syncope or falls. Apart from balance issues he voices no new specific complaints. He worked with the PT who is recommending rehab but he wants to go home and declining rehab. He is agreeable for
home/outpatient PT.
No evidence of stroke. Appreciate neurology input.
Clinical concern may be symptomatic from his orthostatic hypotension. His advised MICHELLE stockings which he is refusing. Midodrine treatments would be risk for him due to supine hypertension. Advised caution and stressed about the importance of stat
stockings.
Appreciate nephrology input-continue with dialysis per nephrology.
Ultrasound of the carotid showed more than 70% stenosis of the bilateral carotid bulbs and vascular is recommending a CT angiogram head and neck and follow-up as an outpatient.
Nephrology is okay with CT angiogram and do not need to time with hemodialysis. Next hemodialysis is on Friday.
DC home after CT angiogram.
Original Note:
Today's Communication/Plan
-
Patient declined dialysis, not scheduled for dialysis today.
Patient declined compression stockings and abdominal binders.
Continue his oral medications.
CT angiogram of the neck and then plan for discharge.
Assessment / Plan
Assessment / Plan
Xjfensrtou-41-hehg-old male with PMHx significant for CAD,-PCI x 2 for circumflex, and PDA, history of CVA, RBBB, paroxysmal A-fib, ESRD on hemodialysis, benign HTN, dizziness, hyperlipidemia, depression presents to the hospital for evaluation of
recurrent mechanical falls-with no prodrome.
Plan-
Recurrent falls-
CT of the head showed no evidence of new stroke
MRI of the brain failed to demonstrate any acute abnormality.
Orthostatic vital signs positive.
Most likely secondary to vasovagal events from previous renal dysfunction versus autonomic dysfunction.
Compression stockings, abdominal binders.
Patient has been on his dry side with lowest weight. Dry target weight unknown. Could also be vasovagal from volume depletion after dialysis.
Noncompliant with dialysis, on Lasix 80 twice daily.
Ultrasound of the carotids showed bilateral 70% stenosis-likely asymptomatic. Appreciate neurology help in evaluating patient.
Vascular surgery recommended CTA and outpatient follow up.
patient refused compression stockings and abdominal binder for orthostasis.
Consult PT and OT to evaluate for mechanical falls.
Chronic watery brown diarrhea-
Intermittent, no recent history of travel, no recent antibiotics.
Formed stools, unlikely C. difficile.
Salmonella Shigella and Campylobacter pending.
Stool WBC pending. fecal calprotectin added.
suspect less likely to be infectious in etiology.
Chronic dizziness-
Bilateral hearing loss left greater than right.
ENT evaluation outpatient.
Patient denies tinnitus.
ESRD on hemodialysis-Friday, Friday.
Reviewed with nephrology, left arm fistulogram on 01/05/2021, 04/13/2021.
Stenting of the left upper extremity brachiocephalic fistula for venous outflow stenosis on 02/08/2022, balloon angioplasty for proximal venous stenosis on 02/04/2023.
Most recent dialysis-on 04/12/2025.
Reviewed with nephrology, patient noncompliant, and on Friday and Friday regimen by his choice (although nephrology would not recommend it).
On high dose of Lasix, still having urine output.
Monitor urine output, appreciate nephrology inputs.
Paroxysmal A-fib-
On carvedilol and Eliquis.
[id number] score-5.
Eliquis reduced dosing.-Age 84, ESRD.
CAD/[place]-
Continue atorvastatin and Coreg.
Chronic HFpEF-
P.o. Lasix 80 twice daily-continue
Depression-
Home meds Zoloft and mirtazapine.
Continue Zoloft and mirtazapine.
BPH-
Continue with tamsulosin.
Anemia of chronic disease-
Hemoglobin at 8.6.
No active bleed
Trend hemoglobin.
DVT prophylaxis-
Patient on Eliquis.
CODE STATUS-
DO NOT RESUSCITATE.
Anticipated Discharge: 24 - 48 hours
Subjective/Interval History
-
Date of Service: April 14, 2025
Spoke to [place] at bedside about dialysis today. Patient stated that he thinks he needs only 2 days of dialysis a week, when offered to discuss further, and tried to explain though necessity of volume regulation and its association with dizziness,
he did not want to talk any further about dialysis and kept staring at the wall. When asked if he wants to talk further about the dialysis recommendations per nephrology he politely declined.
Patient stated that he he does not have any complaints today. His dizziness is still there.
Objective Data
-
Labs:
Laboratory Results
04/14/25
06:58
WBC 5.4
Hgb 8.3 L
Hct 25.8 L
Plt Count 112 L
Sodium Pending
Potassium Pending
Chloride Pending
Carbon Dioxide Pending
BUN Pending
Creatinine Pending
Glucose Pending
Calcium Pending
Vital Signs:
Vital Signs
Temp Pulse Resp BP Pulse Ox
98.1 F 74 19 163/64 100
04/14/25 07:00 04/14/25 09:34 04/14/25 07:00 04/14/25 09:34 04/14/25 07:00
I&O
04/13/25 04/14/25 04/15/25
06:59 06:59 06:59
Intake Total 327 / 327
Output Total 100 / 100 100 / 100
Balance -100 / -100 227 / 227
Review of Systems
-
History Source: Patient
Constitutional: Denies Fever, Fatigue or Chills
EENT: Reports Hearing Loss; Denies Blurry Vision, Decreased Vision or Tinnitis
Respiratory: Denies Cough or Trouble Breathing
Cardiac: Denies Chest Pain, Palpitations, Syncope or Orthopnea
Abdomen/GI: Denies Abdominal Pain, Nausea or Diarrhea
Genitourinary: Denies Dysuria or Frequency
Musculoskeletal: Denies No Symptoms
Neuro: Denies No Symptoms
Hematologic / Lymphatic: Denies No Symptoms
Physical Exam
-
General: No Apparent Distress and Comfortable
HEENT: Moist Mucous Membranes, [place] Conjunctivae and PERRLA
Respiratory: Clear to Auscultation; Negative Wheezes, Rales, Rhonchi or Crackles
Cardiac: Regular Rhythm, S1/S2 and Murmur (systolic murmur 3/6 best heard in [place]); Negative Rub or Gallop
GI: Soft, Nontender, Nondistended and Normal Bowel Sounds
Genito-urinary: No Costovertebral Tender; Negative Supra Pubic Tube
Musculoskeletal: No Clubbing, No Cyanosis and Other (Stasis dermatitis changes on bilateral lower extremities.)
Skin: Warm
Neuro: AO x 3 and No Motor Deficits; Negative DTR's Intact & Symmetrica
Psych: Calm
Data Reviewed
-
Ultrasound: Report Reviewed by me and Discussed with Physician
Medical Tests (Nuc Med, Echo etc): Report Reviewed by me and Discussed with Physician
Labs: Labs Reviewed by me and Discussed with Physician
[2025-04-14 10:06] LABS: Blood Urea Nitrogen 77 mg/dl (9-20); Calcium 7.8 mg/dl (8.4-10.2); Carbon Dioxide 24 mmol/L (22-30); Chloride 105 mmol/L (98-107); Estimated Creatinine Clearance 6 ml/min; Glucose 106 mg/dl (70-99); Potassium 4.6 mmol/L (3.5-5.1); Sodium 143 mmol/L (135-145); eGFR 5.66
[2025-04-14 10:35] LABS: TSH Reflex To Free T4 0.89 uIU/ml (0.47-4.68)
[2025-04-14 10:53] LABS: Cortisol, Random 17.2 ug/dl
[2025-04-14 11:00] VITALS: BP 155/62
--- NOTE | 2025-04-14 13:27 | W.PN.NEPH.PH ---
Today's Communication / Plan
-
next HD on Friday
Assessment/Plan
-
Impression:
Acute on chronic ambulatory dysfunction with falls
recent/bilateral hearing impairment left greater
Chronic dizziness
Chronic watery brown diarrhea x 1 month-unclear etiology
ESRD ([facility] 3hr) [facility] in [place]
Benign HTN
AV fistula last fistulogram 02/2025
BPH
Anemia of chronic disease/ESRD
CAD/HI/CABG s/p stent 11/2023
RBBB
Paroxysmal A-fib
Cardiac murmur
Bradycardia due to labetalol
Chronic diastolic CHF
HLD
Depression
Gout
Medical noncompliance (allows only two 3-hour HD treatments weekly)
Plan:
A/w frequent fall, neuro follows
+ve orthostatic seem chronic issues
UF usually on HD is limited due to his symptoms
his BP are high during hd at out pt
start TEDs
Maintain oral antihypertensives for hypertension
renal diet
next HD friday
he still makes urine hence cont lasix
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
d/w pt and daughter at bedside
-
-
Date of Service: April 14, 2025
CC / HPI / ROS
-
Chief Complaint:
ESRD
History of Present Illness:
Bp high with mild ortho vitals
no fever. hb at 8.3
Review of Systems:
no cp ro sob
not willing to use walker even at home
chr diarrhea
Labs
-
Labs:
WBC 5.4 10^3/uL (4.8-10.8) 04/14/25 06:58
RBC 2.72 10^6/uL (4.70-6.10) L 04/14/25 06:58
Hgb 8.3 g/dL (13.0-18.0) L 04/14/25 06:58
Hct 25.8 % (39.0-52.0) L 04/14/25 06:58
Plt Count 112 10^3/uL (130-400) L 04/14/25 06:58
Sodium 143 mmol/L (135-145) 04/14/25 06:58
Potassium 4.6 mmol/L (3.5-5.1) 04/14/25 06:58
Chloride 105 mmol/L (98-107) 04/14/25 06:58
Carbon Dioxide 24 mmol/L (22-30) 04/14/25 06:58
BUN 77 mg/dl (9-20) H 04/14/25 06:58
Creatinine 8.5 mg/dL (0.7-1.3) H* 04/14/25 06:58
eGFR 5.66 04/14/25 06:58
Glucose 106 mg/dl (70-99) H 04/14/25 06:58
Calcium 7.8 mg/dl (8.4-10.2) L 04/14/25 06:58
Albumin 4.0 g/dl (3.5-5.0) 04/13/25 06:22
Physical Exam
-
Vital Signs:
Vital Signs
Temp Pulse Resp BP Pulse Ox
97.3 F 69 18 155/62 100
04/14/25 11:00 04/14/25 11:00 04/14/25 11:00 04/14/25 11:00 04/14/25 11:00
Cardiovascular:: Regular rate and rhythm
Respiratory:: Bilateral: CTA
Lung Excursion:: Normal
Abdomen:: Nontender and Soft
Bowel Sounds:: Normal
Extremity Edema:: None: Bilateral:
Escobar Catheter: No
--- NOTE | 2025-04-14 14:56 | CM ---
Addendum entered by Savanna Cook 04/14/25 15:44:
Scripts for OP PT/OT placed on pt chart
Original Note:
CM received consult for VN, met with pt and his daughter at bedside. Pt confirms that he lives alone and drives himself to dialysis. Daughter requesting information about [facility], information printed from the internet and given to pt. Discussed
with pt he may not qualify for VN services since he is not homebound(drives himself to dialysis twice a week), is interested in VN but will consider OP therapy if he does not qualify. Will discuss with VN Liaison.
Pt confirms transportation home at time of discharge. CM will continue to follow for discharge planning needs.
Plan: Home with VN vs OP therapy
[facility]
[2025-04-14 15:00] VITALS: BP 141/56; BP 155/54; BP 157/59; PULSE 67; PULSE 76; PULSE 79
--- NOTE | 2025-04-14 15:45 | W.DCSUMMARY ---
Discharge Summary
Discharge Data
Date of Admission: 04/12/25
Date of Discharge: 04/14/25
-
Pending Results: Yes
Additional Pending Results:
CTA head and neck
Hospital Course
Assessment - 84-year-old male with PMHx significant for CAD,-PCI x 2 for circumflex, and PDA, history of CVA, RBBB, paroxysmal A-fib, ESRD on hemodialysis, benign HTN, dizziness, hyperlipidemia, depression presents to the hospital for evaluation of
recurrent mechanical falls-with no prodrome.
PCP - Unknown
Primary discharge diagnosis -
Mechanical fall
Dizziness
Hospital course -
Patient is admitted to hospital for evaluation of recurrent falls, he was worked up for falls-he denied having any syncope upon admission. Neurology was called to evaluate his dizziness, a CT head was obtained to rule out any acute intracranial
hemorrhage, and MRI brain was ordered to rule out any balance issues. Both of which are normal, chronic lacunar infarcts are found but no evidence of acute disease process (infection, stroke, hemorrhage, tumors) found. Patient was also connected
to telemetry where PVCs were found over the last 2 days, and occasional ventricular bigeminy. An ultrasound of the carotids was obtained that showed evidence for carotid artery stenosis-bilateral with 70% occlusion. Vascular surgery was consulted,
vascular surgery saw the patient and recommended outpatient follow-up and a CT angiogram. CT angiogram of head and neck is obtained in the hospital.
Nephrology was consulted for his end-stage renal disease on dialysis, there was difficulty in patient being compliant with his 3-day dialysis regimen. In the last 1 month he missed about 5 dialysis episodes. Patient repeatedly denied conversations
about dialysis as he only wants to stick to 2 days a week instead of 3 days a week. Hence decision was made to continue Lasix twice daily of the patient. Given his complicated dialysis regimen and Lasix-patient is having volume maintenance issues
and dry weight issues. He is also found to be positive for orthostatic vitals. When advised the patient to wear compression stockings and abdominal binders patient declined them. PT and OT was consulted to evaluate for balance issues and frailty,
they recommended SNF stay. Patient refused staying at SNF. Case management was consulted, PT and OT arrangements were made for at home as well as outpatient, and patient was discharged home with a follow-up appointment set with vascular surgery on
May 16.
Workup in the hospital-
CT angiogram-04/14/2025-results pending.
Lower extremity gvzixfdbzl-qnjxdskv-6/29/2025-
IMPRESSION:
Right leg: FORTINO unreliable/unobtainable secondary to calcified/non-compliant vessels. TBI severely reduced measuring 0.26. Multiphasic flow within the common femoral artery with no evidence for inflow disease. Multiphasic flow also observed within
the superficial femoral and popliteal arteries. Monophasic continuous pedal flow suggestive of infrapopliteal and distal small vessel disease.
Left leg: FORTINO unobtainable/unreliable secondary to noncompressible vessels. TBI moderately reduced measuring 0.55. Multifocal flow within the common femoral through popliteal arteries. Monophasic pedal flow. Findings suggestive of infrapopliteal and
distal small vessel disease.
Vascular ultrasound of carotids-04/13/2025-
IMPRESSION:
1. Calcified plaque within the right carotid bulb, measurements suggestive of greater than 70% stenosis as per modified Society of Radiologists in Ultrasound consensus criteria (IAC carotid criteria white paper, 2020). Progression compared to prior
study dated 05/16/2017.
2. Calcified left carotid bulb plaque, velocity measurements suggestive of greater than 70% stenosis but internal to common carotid ratio suggestive of 50-69%. Also progressed compared to prior study.
Brain MRI-04/13/2025-
No acute intracranial abnormality noted. Specifically, no acute infarct. Multiple small chronic lacunar infarcts. Moderate chronic microvascular white matter ischemic disease. Advanced global atrophy. Chronic occlusion of the right intradural
vertebral artery.
Head CT-04/12/2025-
No acute intracranial abnormality.
Discharge Plan
-
Patient Disposition: Home (Routine Discharge)
Discharge Diagnosis/Procedures: Mechanical falls, Dizziness
Condition: Fair
Diet: No restrictions
Activity: No restrictions and As tolerated
Driving Restrictions: As prior to admission
Bathing Restrictions: None
Other Services: PT and OT
Instructions: Preventing falls in adults, Dizziness in adults - ED discharge instructions
Referrals:
Jose Tamez MD [Family Provider, [facility]]
Maximino Escobar III, MD [Active, Vascular Surgery] - 05/18/25 4:15 pm
Prescriptions:
Continued
Eliquis 2.5 MG tablet
2.5 mg PO BID Qty: 60 0RF
atorvastatin 80 MG tablet
80 mg PO DAILY
tamsulosin 0.4 MG capsule
0.4 mg PO BID
pantoprazole 40 mg Tablet,Delayed Release (Dr/Ec)
40 mg PO DAILY Qty: 30 0RF
amlodipine 5 mg tablet
5 mg PO DAILY Qty: 30 11RF
furosemide 80 mg Tablet
80 mg PO BID
losartan 25 mg Tablet
25 mg PO DAILY
carvedilol [Coreg] 6.25 mg tablet
6.25 mg PO BID Qty: 90 3RF
sertraline 50 mg Tablet
50 mg PO BID
mirtazapine 7.5 mg Tablet
7.5 mg PO HS
Discharge Orders:
Discharge Patient (As Directed); Ordered 04/14/25
Ordered By: Belinda Cao
Discharge Date and Time
Discharge Date/Time: 04/14/25 17:35
Print Language: K[place]
[2025-04-14] MEDS: LASIX PO (16:57)
== END 2025-04-14 17:35 | disposition home or self-care (01) ==
LOC: 4 WEST ACU 19:40
PROVIDERS: Clinical Nurse Specialist Family Health; Nurse Practitioner; Student in an Organized Health Care Education/Training Program; ADMITTING PHYSICIAN Internal Medicine; ATTENDING PHYSICIAN Internal Medicine; CONSULT PHYSICIAN Psychiatry & Neurology Neurology; CONSULT PHYSICIAN Surgery Vascular Surgery; EMERGENCY PHYSICIAN Emergency Medicine; FAMILY PHYSICIAN Family Medicine; OTHER PHYSICIAN Internal Medicine
DX: R27.0 Ataxia, unspecified (principal); R29.6 Repeated falls; R53.1 Weakness; R19.7 Diarrhea, unspecified; N18.6 End stage renal disease; I13.2 Hypertensive heart and chronic kidney disease with heart failure and with stage 5 chronic kidney disease, or end stage renal disease; I48.0 Paroxysmal atrial fibrillation; I50.32 Chronic diastolic (congestive) heart failure; I25.10 Atherosclerotic heart disease of native coronary artery without angina pectoris; I65.23 Occlusion and stenosis of bilateral carotid arteries; I69.354 Hemiplegia and hemiparesis following cerebral infarction affecting left non-dominant side; I73.9 Peripheral vascular disease, unspecified; G31.9 Degenerative disease of nervous system, unspecified; I66.8 Occlusion and stenosis of other cerebral arteries; E78.00 Pure hypercholesterolemia, unspecified; D63.1 Anemia in chronic kidney disease; S80.212A Abrasion, left knee, initial encounter; I49.3 Ventricular premature depolarization; H91.93 Unspecified hearing loss, bilateral; I45.10 Unspecified right bundle-branch block; N40.0 Benign prostatic hyperplasia without lower urinary tract symptoms; R45.89 Other symptoms and signs involving emotional state; H54.61 Unqualified visual loss, right eye, normal vision left eye; M10.9 Gout, unspecified; F32.A Depression, unspecified; W18.39XA Other fall on same level, initial encounter; Y93.01 Activity, walking, marching and hiking; Y92.008 Other place in unspecified non-institutional (private) residence as the place of occurrence of the external cause; I25.2 Old myocardial infarction; Z66 Do not resuscitate; Z60.2 Problems related to living alone; Z79.899 Other long term (current) drug therapy; Z95.1 Presence of aortocoronary bypass graft; Z79.01 Long term (current) use of anticoagulants; Z87.891 Personal history of nicotine dependence; Z95.5 Presence of coronary angioplasty implant and graft; Z99.2 Dependence on renal dialysis; Z87.74 Personal history of (corrected) congenital malformations of heart and circulatory system; Z82.3 Family history of stroke; Z82.49 Family history of ischemic heart disease and other diseases of the circulatory system; Z87.19 Personal history of other diseases of the digestive system; Z87.440 Personal history of urinary (tract) infections; Z91.158 Patient's noncompliance with renal dialysis for other reason
CPT/HCPCS: 70450; 70496; 70498; 70551; 80048; 80053; 80061; 81003; 81015; 82533; 83036; 83735; 84443; 85025; 85027; 87045; 87046; 87070; 87427; 93005; 93880; 93922; 93925; 97163; 97167; 99285; G0378; Q9967

== ENCOUNTER 2025-05-11 13:24 | Emergency (ER) | payer OTHER, SELFPAY ==
[2025-05-11 13:36] VITALS: BP 139/58
[2025-05-11 14:13] LABS: Hematocrit 28.2 % (39.0-52.0); Hemoglobin 8.8 g/dL (13.0-18.0); Mean Corp Hgb Conc. 31.2 g/dL (33.0-37.0); Mean Corpuscular Hgb 30.1 pg (27.0-31.0); Mean Corpuscular Volume 96.6 fL (80.0-94.0); Mean Platelet Volume 11.9 fL (7.4-10.4); Platelet Count 170 10^3/uL (130-400); Red Blood Cell Count 2.92 10^6/uL (4.70-6.10); Red Cell Dist. Width 16.8 % (11.5-14.5)
[2025-05-11 14:15] LABS: Lactic Acid 2.3 mmol/L (0.7-2.0)
[2025-05-11 14:23] LABS: ALT (SGPT) 11 U/L (0-50); AST (SGOT) 14 U/L (17-59); Albumin 4.2 g/dl (3.5-5.0); Alkaline Phosphatase 83 U/L (38-126); Blood Urea Nitrogen 34 mg/dl (9-20); Calcium 8.6 mg/dl (8.4-10.2); Carbon Dioxide 30 mmol/L (22-30); Chloride 99 mmol/L (98-107); Glucose 124 mg/dl (70-99); Lipase 89 U/L (23-300); Potassium 4.6 mmol/L (3.5-5.1); Sodium 141 mmol/L (135-145); Total Bilirubin 0.7 mg/dl (0.2-1.3); Total Protein 6.7 g/dl (6.3-8.2); eGFR 6.57
[2025-05-11 14:55] LABS: Absolute Neutrophils -Man Diff 8.8 10^3/uL (1.4-6.5); Band Neutrophils 3 % (0-3); Lymphocytes 3 % (20-51); Monocytes 9 % (2-9); Segmented Neutrophils 85 % (42-75)
[2025-05-11 14:56] LABS: Acanthocytes 1+; Anisocytosis 1+; Hypochromasia 1+; Normal RBC Morphology No; Ovalocytes 1+; Platelets Checked Yes; Polychromasia 1+; Total Cells Counted 100
[2025-05-11 15:03] VITALS: BP 132/67
--- NOTE | 2025-05-12 08:55 | EDRN ---
Called patient at number provided in chart to inform him of abnormal test results from 05/11/24. Pt reports that he's feeling a little better though he still has dry heaves. Pt reports that he's taking fluids well PO. Advised pt to follow up with his
primary doctor. He replied 'I'll see him this week.' Pt reports he receives dialysis Tuesdays and Saturdays and will go this Friday. Advised pt to return to the ED with any medical concerns.
== END 2025-05-11 15:41 | disposition left against medical advice (07) ==
LOC: EMR 13:24
PROVIDERS: EMERGENCY PHYSICIAN Emergency Medicine
DX: R10.9 Unspecified abdominal pain (principal); Z53.21 Procedure and treatment not carried out due to patient leaving prior to being seen by health care provider
CPT/HCPCS: 80053; 83605; 83690; 85025

== ENCOUNTER 2025-05-28 03:53 | Emergency (ER) | payer OTHER, SELFPAY ==
[2025-05-28 03:54] VITALS: BP 156/79
--- NOTE | 2025-05-28 04:13 | ED.GENMED ---
History of Present Illness
General
Chief Complaint: Abdominal Pain
Time Seen by Provider: 05/28/25 04:09
History of Present Illness
History of Present Illness:
TIME OF INITIAL EVALUATION
- 4:10 AM
REVIEW OF OLD RECORDS
- The patient has history of CKD/on dialysis, CHF, CAD. I reviewed the discharge summary from admission from March of this year when he was here with falls, ambulatory dysfunction
Note:
CHIEF COMPLAINT(S)
Lower abdominal pain and hematuria.
HISTORY OF PRESENT ILLNESS
The patient is an 84-year-old male with a history of chronic abdominal pain who presents with new-onset hematuria. The patient reports that both symptoms started approximately 12 hours ago, around Friday, with significant blood visible in the urine.
He describes the abdominal pain as consistent with previous episodes he experiences regularly due to an underlying chronic condition. The patient emphasizes the hematuria as the new and concerning feature, prompting his visit. He denies any nausea.
The patient is on dialysis and is able to produce urine. His med list includes Eliquis.
The patient tells me that he chronically has lower abdominal pain which is common for him but the new issue is gross hematuria.
SOCIAL DETERMINANTS AFFECTING HEALTH
The patient is on dialysis, indicating potential significant chronic health management requirements affecting daily life. Of note, patient states that he was able to drive himself here
PHYSICAL EXAM
- General: The patient appears somewhat chronically weak and debilitated
- HEENT: Moist oral mucosa
- Cardiovascular: No murmurs, normal heart rate, regular rhythm, No chest wall tenderness
- Pulmonary: No respiratory distress, breath sounds are clear and equal
- Abdomen: Soft with no peritoneal signs, no significant tenderness
- Neurologic: Good strength all extremities, no coordination deficits
- Psychiatric: Reasonable insight and judgment but there may be some mild cognitive impairment
- Extremities: Nontender, no edema, moves all extremities equally
- Skin: No rash, no lesions
DIFFERENTIAL DIAGNOSIS
The Differential Diagnosis includes, in no particular order and is not limited to:
1. Urinary tract infection
2. Nephrolithiasis
3. Bladder cancer
4. Benign prostatic hyperplasia
5. Urethral trauma
6. Glomerulonephritis
7. Renal cell carcinoma
8. Analgesic nephropathy
9. Polycystic kidney disease
10. Hemorrhagic cystitis
RADIOLOGY
- CT imaging shows no obstructive uropathy, perinephric stranding again seen. Although the patient stated he had no sensation of need to void, CT imaging shows that he had a moderately distended bladder.
EKG
-
LABS
- White count normal at 9.8, hemoglobin 8.3 which is near recent baseline, creatinine 0.9, calcium low at 6.1, urinalysis shows no evidence of infection
UPDATE
- Given the distended bladder noted on CT with out ability to void, RN straight cath. Of note, there was no gross blood on urine sample
SUMMARY OF ENCOUNTER
The patient, an 84-year-old male on dialysis, presented to the emergency department with lower abdominal pain and new-onset hematuria that began approximately 12 hours prior. Physical examination revealed tenderness upon palpation of the lower
abdomen. A CT scan was performed, revealing a significant amount of urine in the bladder, but no alarming findings. The urine analysis did not indicate infection or current hematuria. Management involved draining the bladder. There was no indication
for antibiotics or additional medications at this time. The patient is to follow up with dialysis as scheduled.
DISPOSITION
Discharge.
PLAN
The patient will be discharged with instructions to continue with his scheduled dialysis on Friday and return if symptoms worsen or new symptoms develop.
INDEPENDENT REVIEW OF LABS AND INTERPRETATION OF TESTS
My independent review of the urine analysis indicated no signs of infection and no current presence of blood.
My independent interpretation of the CT scan reveals no alarming findings, other than a significant amount of urine in the bladder, which was subsequently drained.
MEDICAL DECISION MAKING
-Chronic conditions affecting care: Chronic abdominal pain, undergoing dialysis regularly. Differential diagnosis includes urinary tract infection, nephrolithiasis, bladder cancer, benign prostatic hyperplasia, urethral trauma, glomerulonephritis,
renal cell carcinoma, analgesic nephropathy, polycystic kidney disease, hemorrhagic cystitis.
-Data:
Category 1
The urine analysis was reviewed showing no signs of active infection or current blood. The CT scan was independently interpreted with the findings of urine accumulation but no alarming abnormalities.
-Risk:
Care significantly affected by Social Determinants of Health: The patients reliance on consistent dialysis is crucial for his chronic condition management.
Consideration of Admission/Observation: Escalation of care including admission/observation was considered given the complexity and risk of the patients presenting complaint, exam findings, and/or their underlying comorbidities. However, ultimately I
feel the patient is safe for outpatient management with close follow-up. Reasoning: Work-up reassuring, does not reveal any acute life/organ-threatening processes, patients symptoms well controlled upon reevaluation, reexamination is reassuring,
vitals are stable, patient agreeable with discharge, reliable for follow-up.
DIAGNOSIS
Lower abdominal pain (R10.30)
Hematuria, unspecified (R31.9)
Past History
Past History
ED Past Medical History: Arrthythmia (Atrial fib), CAD, CHF, CVA (Left sided weakness slight), HTN, Hypercholesterolemia, NIDDM, [place], Renal failure (Dialysis Friday and Friday) and Other (TIA 2003, Diverticulosis, Anemia, right central retinal
artery occlusion)
ED Past Surgical History: Cardiac (Cardiac stents, LINQ device placement, CABG) and Other (Cataracts, Left arm fistula)
Social History
Tobacco: Former smoker
Alcohol: None
Personal:
Living: alone
Employment: Retired
Family History
Family History: Other (Reviewed and noncontributory)
Phy Exam
Physical Exam
Physical Exam:
See HPI
Course
Orders/Labs/Results
Orders:
Orders
05/28/25 04:15
CT Abd/pel Without Iv Or Oral Urgent
Comment:
Reason For Exam: CKD, pain, hematuria
05/28/25 04:37
Complete Blood Count/With Diff Urgent
Comprehensive Metabolic Panel Urgent
05/28/25 05:22
0.9% Sodium Chloride 250 ml [Nss] 250 ml IV BOLUS
05/28/25 05:42
Straight cath- Treatment ONCE
05/28/25 05:50
Lidocaine 2% [Lidocaine Uro-Jet 2%] 1 syringe .ROUTE .STK-MED ONE
05/28/25 06:00
Urinalysis Reflex To Culture Urgent
Date Specimen was Collected: 05/28/25
Time Specimen was Collected: 05:58
05/28/25 06:08
Calcium Carbonate [Oscal Blayne 500] 500 mg PO NOW STA
05/28/25 07:00
Flush (0.9% Sodium Chloride) [Flush (Nss)] See Dose Instructions IV PER PROTOCOL
Abnormal Lab Results
05/28/25
04:37
RBC 2.65 L 10^6/uL
(4.70-6.10)
Hgb 8.3 L g/dL
(13.0-18.0)
Hct 25.9 L %
(39.0-52.0)
MCV 97.7 H fL
(80.0-94.0)
MCH 31.3 H pg
(27.0-31.0)
MCHC 32.0 L g/dL
(33.0-37.0)
RDW 17.9 H %
(11.5-14.5)
MPV 11.1 H fL
(7.4-10.4)
Abs Immat Gran (auto) 0.7 H 10^3/uL
(0-0.05)
Absolute Lymphs (auto) 0.6 L 10^3/uL
(1.2-3.4)
Absolute Monos (auto) 1.9 H 10^3/uL
(0.1-0.6)
Immature Gran % 7.0 H %
(0-0.5)
Lymphocytes % 6.0 L %
(20.5-51.1)
Monocytes % 19.8 H %
(1.7-9.3)
BUN 91 H mg/dl
(9-20)
Creatinine 8.9 H* mg/dL
(0.7-1.3)
Glucose 118 H mg/dl
(70-99)
Calcium 6.1 L* mg/dl
(8.4-10.2)
05/28/25 04:37
05/28/25 04:37
Vital Signs
Initial and Last Documented VS:
Initial Vital Signs
Temp Pulse Resp BP Pulse Ox
36.6 C 84 22 156/79 99
05/28/25 03:54 05/28/25 03:54 05/28/25 03:54 05/28/25 03:54 05/28/25 03:54
Last Documented Vital Signs
Temp Pulse Resp BP Pulse Ox
36.6 C 84 22 142/72 99
05/28/25 03:54 05/28/25 04:42 05/28/25 03:54 05/28/25 04:42 05/28/25 04:42
*Pulse Oximetry
SaO2: 99
Oxygen Mode of Delivery: Room air
Patient hypoxic: no
*Critical Care Note
Total Time (30-74mins, 75-104mins- exclusive of procedures): Not Applicable
ED Attending Note
-
Portions of this chart may have been created with voice recognition software.� Occasional wrong word or��sound alike� substitutions may have occurred due to the inherent limitations of voice recognition software.
Discharge Plan
Departure
Prescriptions:
No Action
Eliquis 2.5 MG tablet
2.5 mg PO BID Qty: 60 0RF
atorvastatin 80 MG tablet
80 mg PO DAILY
tamsulosin 0.4 MG capsule
0.4 mg PO BID
pantoprazole 40 mg Tablet,Delayed Release (Dr/Ec)
40 mg PO DAILY Qty: 30 0RF
amlodipine 5 mg tablet
5 mg PO DAILY Qty: 30 11RF
furosemide 80 mg Tablet
80 mg PO BID
losartan 25 mg Tablet
25 mg PO DAILY
carvedilol [Coreg] 6.25 mg tablet
6.25 mg PO BID Qty: 90 3RF
sertraline 50 mg Tablet
50 mg PO BID
mirtazapine 7.5 mg Tablet
7.5 mg PO HS
Referrals:
Jose Tamez MD [Family Provider, Family Practice]
Interventions
Interventions:
*Risk Screen - Suicide Last Done: 05/28/25 03:54
[id number] Assessment Last Done: 05/28/25 04:41
Discharge Date and Time
Print Language: SPANISH
[2025-05-28 04:35] VITALS: BP 142/72
[2025-05-28 04:38] VITALS: BMI 26.8
[2025-05-28 04:42] VITALS: BP 142/72
[2025-05-28 05:03] LABS: Hematocrit 25.9 % (39.0-52.0); Hemoglobin 8.3 g/dL (13.0-18.0); Mean Corp Hgb Conc. 32.0 g/dL (33.0-37.0); Mean Corpuscular Volume 97.7 fL (80.0-94.0); Platelet Count 158 10^3/uL (130-400); Red Cell Dist. Width 17.9 % (11.5-14.5)
[2025-05-28] MEDS: NSS 250 IV (05:31)
[2025-05-28 05:38] LABS: ALT (SGPT) 19 U/L (0-50); AST (SGOT) 20 U/L (17-59); Albumin 4.0 g/dl (3.5-5.0); Alkaline Phosphatase 84 U/L (38-126); Blood Urea Nitrogen 91 mg/dl (9-20); Calcium 6.1 mg/dl (8.4-10.2); Carbon Dioxide 22 mmol/L (22-30); Chloride 103 mmol/L (98-107); Estimated Creatinine Clearance 6 ml/min; Glucose 118 mg/dl (70-99); Potassium 4.3 mmol/L (3.5-5.1); Sodium 141 mmol/L (135-145); Total Protein 6.4 g/dl (6.3-8.2); eGFR 5.35
[2025-05-28 06:16] LABS: Urine Character Clear (Clear)
[2025-05-28 06:16] LABS: Nucleated Red Blood Cells % 0 % (-)
[2025-05-28] MEDS: OSCAL CAL 500 500 MG PO (06:26)
[2025-05-28 06:29] VITALS: BP 135/70
[2025-05-28 06:29] LABS: Urine Red Blood Cell 0-2 /HPF (0-2)
== END 2025-05-28 06:45 | disposition home or self-care (01) ==
LOC: EMR 03:53
PROVIDERS: EMERGENCY PHYSICIAN Emergency Medicine; FAMILY PHYSICIAN Family Medicine
DX: R10.30 Lower abdominal pain, unspecified (principal); R31.0 Gross hematuria; E78.00 Pure hypercholesterolemia, unspecified; I13.2 Hypertensive heart and chronic kidney disease with heart failure and with stage 5 chronic kidney disease, or end stage renal disease; I50.9 Heart failure, unspecified; N18.6 End stage renal disease; Z99.2 Dependence on renal dialysis; I25.10 Atherosclerotic heart disease of native coronary artery without angina pectoris; N40.0 Benign prostatic hyperplasia without lower urinary tract symptoms; Z86.73 Personal history of transient ischemic attack (TIA), and cerebral infarction without residual deficits; Z87.891 Personal history of nicotine dependence; Z95.1 Presence of aortocoronary bypass graft; Z95.5 Presence of coronary angioplasty implant and graft
CPT/HCPCS: 99284; 96360; 74176; 80053; 81003; 81015; 85025

== ENCOUNTER → 2025-06-02 09:44 | Outpatient (REF) | payer OTHER, SELFPAY ==
[2025-06-02 11:36] LABS: Calcium 6.3 mg/dl (8.4-10.2)
== END ==
LOC: CLAB 09:44
PROVIDERS: ATTENDING PHYSICIAN Specialist
DX: N18.6 End stage renal disease (principal)
CPT/HCPCS: 36415; 82310

== ENCOUNTER 2025-06-18 03:52 | Inpatient (IN) | payer MEDICARE, SELFPAY ==
[2025-06-18] VITALS (22 sets, daily range): BP systolic 134–174; BP diastolic 61–88; PULSE 2–74; BMI 25.6; BMI 24.4
[2025-06-18] MEDS: NITROSTAT (SUBLINGUAL) 0.4 MG SL (00:52)
[2025-06-18 01:02] LABS: ALT (SGPT) 28 U/L (0-50); AST (SGOT) 30 U/L (17-59); Albumin 4.5 g/dl (3.5-5.0); Alkaline Phosphatase 79 U/L (38-126); Blood Urea Nitrogen 119 mg/dl (9-20); Calcium 7.4 mg/dl (8.4-10.2); Carbon Dioxide 16 mmol/L (22-30); Chloride 107 mmol/L (98-107); Estimated Creatinine Clearance 6 ml/min; Glucose 122 mg/dl (70-99); Potassium 5.7 mmol/L (3.5-5.1); Sodium 141 mmol/L (135-145); Total Protein 6.9 g/dl (6.3-8.2); eGFR 4.89
[2025-06-18 01:08] LABS: Hematocrit 28.0 % (39.0-52.0); Hemoglobin 8.8 g/dL (13.0-18.0); Mean Corp Hgb Conc. 31.4 g/dL (33.0-37.0); Mean Corpuscular Volume 94.6 fL (80.0-94.0); Platelet Count 123 10^3/uL (130-400); Red Cell Dist. Width 16.2 % (11.5-14.5)
[2025-06-18] MEDS: NITROGLYCERIN PREMIX 250 IV (01:13)
[2025-06-18 01:21] LABS: Troponin I 0.108 ng/ml
--- NOTE | 2025-06-18 02:39 | ED.GENMED ---
History of Present Illness
General
Chief Complaint: Chest Pain
Source: patient
Time Seen by Provider: 06/18/25 00:39
History of Present Illness
History of Present Illness:
Presents to the emergency shortness. Patient evidently had an episode of chest pain 2 days ago. Is felt short of breath since then. Patient has end-stage renal disease and receives dialysis on Tuesdays and Saturdays. He only receives dialysis
twice a week. He did not miss any recent treatments. Currently patient denies chest tightness but just states he has significant shortness of breath. No fever or chills.
Past History
Past History
ED Past Medical History: Arrthythmia (Atrial fib), CAD, CHF, CVA (Left sided weakness slight), HTN, Hypercholesterolemia, NIDDM, SC, Renal failure (Dialysis Friday and Friday) and Other (TIA 2002, Diverticulosis, Anemia, right central retinal
artery occlusion)
ED Past Surgical History: Cardiac (Cardiac stents, LINQ device placement, CABG) and Other (Cataracts, Left arm fistula)
Social History
Tobacco: Former smoker
Alcohol: None
Personal:
Living: alone
Employment: Retired
Family History
Family History: Other (Reviewed and noncontributory)
Phy Exam
Physical Exam
Physical Exam:
General: Awake, Alert, Oriented X2. No acute distress.
Vitals: Hypertensive mildly tachypnea
Head: Atraumatic
Eyes: Pupils equal, EOMI
Throat: Airway intact, no exudates
Neck: Trachea midline
Lungs: Crackles bilateral bases
Heart: Regular rate, no murmurs
Abd: Soft, Nontender, No pulsatile mass
Neuro: Nonfocal
Skin: Warm, dry, no rash
Extremities: pulses equal b/l, trace edema. Left arm AV fistula
Scores
Heart Score for Chest Pain Patients
STEMI patient?: No
History: Moderately Suspicious
ECG: Nonspecific Repolarization
Age: >/= 65 years
Risk Factors: >/= 3 Risk Factors or History of CAD
Troponin: >/= 3 x Normal Limit
Heart Score for Chest Pain Patients: 8
Heart Score Risk: 72.7 % MACE over next 6 weeks
Course
Orders/Labs/Results
Orders:
Orders
06/18/25 00:33
EKG [Electrocardiogram (*1)] Urgent
Reason for Study: Chest Pain
EKG- Treatment ONCE
06/18/25 00:39
Complete Blood Count/With Diff Urgent
Comprehensive Metabolic Panel Urgent
NT-proBNP Urgent
Troponin I Urgent
Nitroglycerin 100 mg/250 ml [Nitroglycerin Premix] 100 mg in 250 ml IV NOW
Initial dose in mcg/min, then titrate:: 40
Titrate to keep:: SBP < 160 mmHg
Titrate by mcg/min:: 5 mcg/min, may increase by 10 mcg/min if dose > 20 mcg/min
Frequency of titrations (minutes):: every 3-5 minutes
Maximum dose in mcg/min:: 200
Begin to taper infusion when:: Remained at goal for 2hrs
Taper by mcg/min:: 5 mcg/min
Frequency of taper (minutes) if patient maintains goal:: 30
Taper to off?: Yes
If infusion off & no longer maintaining goal:: Contact Provider
Nitroglycerin Sublingual [Nitrostat (Sublingual)] 0.4 mg SL NOW STA
06/18/25 00:41
CR Chest Portable - 1 View Urgent
Comment:
Reason For Exam: sob
Reason Study Needs to be Portable: Patient Unstable
06/18/25 02:29
Furosemide [Lasix] 80 mg IV NOW STA
06/18/25 02:33
Bipap [RESP] Urgent
Patient to use own unit?: No
Inspiratory Pressure (cm H2O): 12
Expiratory Pressure (cm H2O): 4
06/18/25 02:38
Sodium Zirconium Cyclosilicate [Lokelma] 10 gram PO NOW STA
Abnormal Lab Results
06/18/25
00:39
RBC 2.96 L 10^6/uL
(4.70-6.10)
Hgb 8.8 L g/dL
(13.0-18.0)
Hct 28.0 L %
(39.0-52.0)
MCV 94.6 H fL
(80.0-94.0)
MCHC 31.4 L g/dL
(33.0-37.0)
RDW 16.2 H %
(11.5-14.5)
Plt Count 123 L 10^3/uL
(130-400)
MPV 12.0 H fL
(7.4-10.4)
Potassium 5.7 H mmol/L
(3.5-5.1)
Carbon Dioxide 16 L mmol/L
(22-30)
BUN 119 H* mg/dl
(9-20)
Creatinine 9.6 H* mg/dL
(0.7-1.3)
Glucose 122 H mg/dl
(70-99)
Calcium 7.4 L mg/dl
(8.4-10.2)
Troponin I 0.108 H* ng/ml
06/18/25 00:39
06/18/25 00:39
Vital Signs
Initial and Last Documented VS:
Initial Vital Signs
Temp Pulse Resp Pulse Ox
98.3 F 92 28 97
06/18/25 00:34 06/18/25 00:34 06/18/25 00:34 06/18/25 00:34
Last Documented Vital Signs
Temp Pulse Resp BP Pulse Ox
98.3 F 78 24 134/77 94
06/18/25 00:34 06/18/25 02:15 06/18/25 02:15 06/18/25 02:15 06/18/25 02:15
MDM/Problems Addressed
Differential Diagnosis Includes:
Pulmonary edema, angina, NSTEMI
MDM/Problems Addressed:
Patient presents with essentially shortness of breath. Shortness of breath is described as being significant though his work of breathing does not seem as high as I would expect given his complaint. He is not hypoxic. Patient arrived fairly
hypertensive and therefore nitro was started. This did ultimately reduce his blood pressure but did not really help his symptomatology very much. His troponin is 0.108. His tropes have been elevated with multiple previous measurements. Troponin
will need to be trended. He is already anticoagulant Eliquis. Chest x-ray shows perhaps mild pulmonary edema. Patient states he does make some urine so we will give him a dose of Lasix as well. Given the patient's symptoms have not been
alleviated with our above interventions we will also start him on BiPAP to see if this will help
Chronic conditions affecting care: HTN and Kidney disease
*Radiology
Radiology exam reviewed: preliminary read by ED provider (Mild pulmonary edema)
*Pulse Oximetry
SaO2: 94
Oxygen Mode of Delivery: Room air
Patient hypoxic: no
*EKG
Interpreted by ED Provider?: Yes
Comparison EKG: no changes
Heart Rate: 83
Rate: normal
Rhythm: sinus
QRS Pattern: right bundle branch block and wide non-specific
Ischemia: non-specific ST changes
*Or[employer] Adf Developer Interpretation
Rate: normal
Interpretation: normal
Rhythm: sinus
*Critical Care Note
Total Time (30-74mins, 75-104mins- exclusive of procedures): 35 min
comment:
Critical care statement: A total of 35 minutes of critical care time was provided for this patient. This includes management of unstable vital signs, evaluation of the patient at bedside, reviewing the patient's pertinent medical records, discussion
with consultants, review of old EKGs and review of pertinent medical records. This time with separate from time utilized to perform the aforementioned documented procedures
Data Reviewed
Review of Other/Old Records Reveals: Labs, Radiology Studies and Discharge Summary
Patient Management
Social determinants of health affecting care: Living situation
ED Attending Note
-
Portions of this chart may have been created with voice recognition software.� Occasional wrong word or��sound alike� substitutions may have occurred due to the inherent limitations of voice recognition software.
Discharge Plan
Departure
Prescriptions:
No Action
Eliquis 2.5 MG tablet
2.5 mg PO BID Qty: 60 0RF
atorvastatin 80 MG tablet
80 mg PO DAILY
tamsulosin 0.4 MG capsule
0.4 mg PO BID
pantoprazole 40 mg Tablet,Delayed Release (Dr/Ec)
40 mg PO DAILY Qty: 30 0RF
amlodipine 5 mg tablet
5 mg PO DAILY Qty: 30 11RF
furosemide 80 mg Tablet
80 mg PO BID
losartan 25 mg Tablet
25 mg PO DAILY
carvedilol [Coreg] 6.25 mg tablet
6.25 mg PO BID Qty: 90 3RF
sertraline 50 mg Tablet
50 mg PO BID
mirtazapine 7.5 mg Tablet
7.5 mg PO HS
Referrals:
UNKNOWN - PT DOES,NOT KNOW [Family Provider]
Interventions
Interventions:
*Risk Screen - Suicide Last Done: 06/18/25 00:34
*General Assessment Last Done: 06/18/25 00:34
*Neglect/Abuse Screening Last Done: 06/18/25 00:34
*ED- Fall Risk Assessment Last Done: 06/18/25 00:34
*ED COVID-19 Vaccine History Last Done: 06/18/25 00:34
ED- Cardiac Assessment Last Done: 06/18/25 00:34
Discharge Date and Time
Print Language: OMANI
[2025-06-18] MEDS: LASIX 80 MG IV (02:43)
--- NOTE | 2025-06-18 02:57 | HPS.HSE ---
Family Physician
-
Family Physician: NOT KNOW UNKNOWN - PT DOES
Chief Complaint
-
Shortness of breath
History of Present Illness
This is a 84-year-old male with past medical history of end-stage renal disease on hemodialysis on Tuesdays and Saturdays, paroxysmal atrial fibrillation on Eliquis, CAD status post CABG and multiple cardiac interventions, peripheral arterial
disease, [id number] diabetes, history of CVA, hypertension presenting to the emergency department with complaint of shortness of breath.
He reported that he had an episode of chest pain 2 days ago that has since resolved since then he has had some shortness of breath. He reports that glucose a dialysis on Tuesdays and Saturdays prior show he is and has not missed any recent
sessions. Stated that he currently does not have any cough fevers or chills. Denies any chest tightness. Denies any nausea vomiting or diaphoresis. Denies any worsening lower extremity edema. Reports that he feels congested when he lays down
but does not have a productive cough. He has dyspnea on any amount of exertion. Says that he has had some mild shortness of breath for about 1 week but it has been more severe over the last 2 days.
While in the emergency department he was given nitroglycerin without any improvement in his shortness of breath although he was not hypoxic. He was also placed on BiPAP.
Currently blood pressure was 148/74 with a pulse rate of 74 and he was satting 99% on BIPAP 10/5 on RA. Temperature was 90.3. Chest x-ray shows increased vascular markings and mild pulmonary edema. ECG shows sinus rhythm at a rate of 83 with
known right bundle branch block and left anterior fascicular block. He has occasional PVC. His troponin was 0.1. BNP is greater than 27,000.
CBC shows a hemoglobin of 8.8 otherwise unremarkable. His potassium was 5.7 with a bicarb of 16. BUN and creatinine were 19 and 9.6.
Medical History
Past Medical History
Past Medical History: Reports Other
Additional Past Medical History:
Cardiac murmur
Cardiac stents�Stent March 2017, drug-eluting stent, multiple stents and PCI 2 stents to circumflex and PDA on 05/26/2008, 07/31/2011
CAD/SC/CABG x 3 vessel 05/19/2017 GALVEZ to LAD, vein graft OM 2 sequential to OM [address] Wilkes 05/19/2017
2D echo 03/02/2025 EF 50-55%, normal LVS LVSF, mild LVH, mild inferior septal hypokinesis, stage I diastolic dysfunction, severely dilated LA, moderate MR, mild TR, PASP 22 mmHg
Stent coronary artery
RBBB
Paroxysmal A-fib
Bradycardia due to labetalol
ESRD on HD Friday by his choice
Anemia of chronic disease
Benign HTN
CVA with left-sided weakness
Dizziness
HLD
Depression
Past Surgical History: Reports Other
Additional Past Surgical History:
Stent March 2017, drug-eluting stent, multiple stents and PCI 2 stents to circumflex and PDA on 05/26/2008, 07/31/2011
CABG x 3 vessel GALVEZ to LAD, vein graft OM 2 sequential to OM [address] Wilkes 05/19/2017
AV fistula 11/03/2020, left arm fistulogram 01/05/2021, 04/13/2021
Stenting left upper extremity brachiocephalic fistula venous outflow stenosis Dr. Escobar 02/08/2022
Balloon angioplasty proximal venous stenosis of the left upper arm AV fistula Dr. Escobar 02/04/2023
Social History
Tobacco: Non-smoker
Alcohol: None
Drug: None
Personal: Single
Living: Alone
Employment: Retired
Family History
Family History: Other (Father age 61 SC Mother age 70 CVA Son from suicide Son bladder cancer)
Allergies / Home Medications
Allergies reflects when Allergies were last updated in [facility].
Home Medications with original date entered in [facility]
Allergy/Medication List:
Allergies
Allergy/AdvReac Type Severity Reaction Status Date / Time
No Known Allergies Allergy Verified 04/12/25 14:18
Home Medications
apixaban 2.5 mg tablet (Eliquis) 2.5 mg PO BID blood thinner #60 tabs 05/12/21
atorvastatin 80 mg tablet 80 mg PO DAILY High cholesterol 01/03/22
tamsulosin 0.4 mg capsule 0.4 mg PO BID Urinary issue 02/08/22
pantoprazole 40 mg tablet,delayed release 40 mg PO DAILY #30 tabs 12/02/23
amlodipine 5 mg tablet 5 mg PO DAILY Blood pressure #30 tabs 12/16/23
furosemide 80 mg tablet 80 mg PO BID Fluid Retention/Swelling 01/06/24
losartan 25 mg tablet 25 mg PO DAILY Blood Pressure 01/06/24
carvedilol 6.25 mg tablet (Coreg) 6.25 mg PO BID #90 tabs 01/09/24
mirtazapine 7.5 mg tablet 7.5 mg PO HS 04/12/25
sertraline 50 mg tablet 50 mg PO BID 04/12/25
Review of Systems
-
History Source: Patient
Constitutional: Reports No Symptoms
EENT: Reports No Symptoms
Respiratory: Reports Trouble Breathing; Denies Cough
Cardiac: Reports Chest Pain; Denies Diaphoresis or Palpitations
Abdomen/GI: Reports No Symptoms
: Reports No Symptoms
Musculoskeletal: Reports No Symptoms; Denies Edema
Skin: Reports No Symptoms
Neurological: Reports No Symptoms
Endocrine: Reports No Symptoms
Hematologic/Lymphatic: Reports No Symptoms
Psych: Reports No Symptoms
Physical Exam
Vital Signs
Vital Signs
Temp Pulse Resp BP Pulse Ox
98.3 F 74 24 148/74 94
06/18/25 00:34 06/18/25 02:43 06/18/25 02:15 06/18/25 02:43 06/18/25 02:41
Physical Exam
General: Well Developed
HEENT: NormoCephalic, Moist mucous membranes, Atraumatic and PERRLA
Respiratory: Clear; No Wheezes, Rales, Rhonchi or Crackles
Cardiac: S1/S2, Regular Rhythm and JVD; No Murmur, Rub or Peripheral Edema
Breast: Deferred by me
GI: Soft, Non Tender, Non Distended and Normal Bowel Sounds; No Organomegaly
Rectal: Deferred by Provider
Genito-urinary: Deferred by me
Musculoskeletal: No Clubbing, No Cyanosis and No Edema
Skin: No Rash
Neuro: AO x 3 and Nonfocal/grossly intact
Hematologic/Lymphatic: No Lymphadenopathy
Psych: Calm
Laboratory Results
-
06/18/25 00:39
06/18/25 00:39
Laboratory Results
Total Bilirubin 0.9 mg/dl (0.2-1.3) 06/18/25 00:39
AST 30 U/L (17-59) 06/18/25 00:39
ALT 28 U/L (0-50) 06/18/25 00:39
Alkaline Phosphatase 79 U/L (38-126) 06/18/25 00:39
Troponin I 0.108 ng/ml H* 06/18/25 00:39
Data Reviewed
-
Diagnostic Radiology: Image Personally Visualized and interpreted
Medical Tests (Nuc Med, Echo, EKG etc): Image Personally Visualized and interpreted
Lab Data: Labs Reviewed by me
Old Records: Reviewed
Impression/Plan
-
IMPRESSION:
84-year-old with multiple comorbidities including end-stage renal disease on hemodialysis, CAD status post CABG, status post multiple stents, peripheral arterial disease, hypertension, CVA, nqc-dfjcpry-oonozyiui diabetes, chronic anemia who comes to
the Emergency Department with complaints of persistent dyspnea on exertion as well as shortness of breath with signs of congestion but no productive cough fevers or chills. X-ray with pulmonary edema. Patient is satting 99% on BiPAP currently.
His signs of dyspnea did not improve with nitroglycerin. He does feel slightly improved with the BiPAP. Overall patient has some pulmonary edema and elevated neck veins with no significant peripheral edema. Suspect volume overload with mild CHF
exacerbation in the setting of end-stage renal disease. His BNP is elevated over 27,000 similar to prior. His troponin is also elevated at 0.1 similar to prior admissions for which he has left AMA. He is currently without any chest pain and ECG
is nonischemic. No evidence of acute infection.
PLAN:
Shortness of breath - Dyspnea without hypoxia suggestive of pulmonary vessel congestion but was not improved with Nitro. He has no infiltrates, fevers or leukocytosis. Most recent echo shows worsening function with declining EF to 45-55% and mild
infero-septal hypokinesis, developement of moderate mr and enlarging LA
- admit to IMU due to being on bipap, removed bipap and remained with pulse ox of 93-98 on RA w/o SOB, admitted to telemetry
- plan for urgent HD in am, Renal aware
- nitroglycerin prn
- trend troponin. No CP, on eliquis 2.5 bid
- check echo
- sl-ntg prn chest pain
- continue eliquis and statin
- continue oral lasix, and antihypertensives.
ESRD - mild volume overload, K 5.7, bicarb 16, BUN 119. Likely underdialyzed at twice weekly dialysis.
- HD via LUE AVF (good thrill and bruit)
- nephrology consult
- fluid and salt restricton
- reassess SOB after HD
AFIB
- continue coreg
- continue eliquis
DVT PPX - on coreg
Code status - DNR
[2025-06-18] MEDS: LOKELMA 10 GRAM PO (04:12)
[2025-06-18 04:26] LABS: Absolute Neutrophils -Man Diff 6.9 10^3/uL (1.4-6.5)
[2025-06-18 04:27] LABS: Anisocytosis 1+; Macrocytosis 2+; Normal RBC Morphology No; Platelets Checked Yes; Total Cells Counted 100
[2025-06-18 07:08] LABS: Troponin I 0.109 ng/ml
--- NOTE | 2025-06-18 09:38 | W.CON.NEPH ---
Addendum entered and electronically signed by Anastacia Hammond MD 06/18/25 18:34:
edit CC-to sob
Original Note:
Consultation
-
Date/Time Consultation Requested: 06/18/2025 0620
Date/Time Consultation Performed: 06/18/25 0930
Requesting Provider: Adonay Bower
Performing Provider: anastacia Carvajal
Reason for Consultation: ESRD
Medical History
-
Chief Complaint: Frequent falls
History of Present Illness:
The patient is an 84-year-old male with a past medical history of end-stage renal disease who dialyzes only on Tuesdays and Saturdays (by his choice), at [facility] dialysis unit. His last dialysis was this past Friday as he refuses to
show up on . He has baseline uncontrolled hypertension due to his noncompliance with dialysis modality. He is maintained on amlodipine , losartan and carvedilol for his hypertension. He receives ROB therapy on dialysis for his anemia of
chronic kidney disease and is chronically anticoagulated for paroxysmal A-fib. His past medical history also includes CAD status post PCI to the RCA. He is also status post CABG in 2017, CVA presenting to the emergency department with Shortness of
breath. Reportedly symptoms started 2 days ago when he had chest pain that reportedly resolved. He reports no issues with her dialysis on Friday. Complains about mild cough and congestion. Denies any fevers or chills. No nausea or vomiting or
abdominal symptoms. In the ER he was on BiPAP temporarily. Potassium was elevated at 5.7, bicarbonate of 16, hemoglobin of 8.8. chest x-ray shows mild pulmonary vascular congestion. He was tried on a nitroglycerin drip however no improvement in
the symptoms. Nephrology was asked for dialysis needs.
Past Medical History
Status post RCA stent on 11/26/23
ESRD (TuSa 3hr) [facility] in [place]
Diarrhea chronic
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
Hypertension
Atrial fibrillation
BPH
Anemia of CKD
CAD/CABG 2016
Cerebrovascular disease
TIA 2002
History ESBL Klebsiella pneumoniae UTI
Gout
Medical noncompliance (allows only two 3-hour HD treatments weekly)
Past Surgical History: Other (Stent March 2017, drug-eluting stent, multiple stents and PCI 2 stents to circumflex and PDA on 05/26/2008, 07/31/2011 CABG x 3 vessel GALVEZ to LAD, vein graft OM 2 sequential to OM [address] Wilkes 05/19/2017 AV fistula
11/03/2020, left arm fistulogram 01/05/2021, 04/13/2021 Stenting left upper extremity brachi)
Social History
Tobacco: Former Smoker
Alcohol: None
Family History
no ckd
Family History: Not Pertinent
Allergies / Home Medications
Allergy/AdvReac Type Severity Reaction Status Date / Time
No Known Allergies Allergy Verified 05/28/25 03:54
�Medication �Instructions �Recorded �Confirmed �Type
apixaban 2.5 mg tablet (Eliquis) 2.5 mg PO BID blood thinner #60 05/12/21 04/12/25 Rx
tabs
atorvastatin 80 mg tablet 80 mg PO DAILY High cholesterol 01/03/22 04/12/25 History
tamsulosin 0.4 mg capsule 0.4 mg PO BID Urinary issue 02/08/22 04/12/25 History
pantoprazole 40 mg tablet,delayed 40 mg PO DAILY #30 tabs 12/02/23 04/12/25 Rx
release
amlodipine 5 mg tablet 5 mg PO DAILY Blood pressure #30 12/16/23 04/12/25 Rx
tabs
furosemide 80 mg tablet 80 mg PO BID Fluid 01/06/24 04/12/25 History
Retention/Swelling
losartan 25 mg tablet 25 mg PO DAILY Blood Pressure 01/06/24 04/12/25 History
carvedilol 6.25 mg tablet (Coreg) 6.25 mg PO BID #90 tabs 01/09/24 04/12/25 Rx
mirtazapine 7.5 mg tablet 7.5 mg PO HS Mental Health/Anxiety 04/12/25 04/12/25 History
sertraline 50 mg tablet 50 mg PO BID Depression 04/12/25 04/12/25 History
Review of Systems
-
All other systems: Negative unless noted
Physical Exam
Vital Signs
Vital Signs
Temp Pulse Resp BP Pulse Ox
97.5 F 85 20 174/83 98
06/18/25 08:00 06/18/25 08:00 06/18/25 08:00 06/18/25 08:00 06/18/25 08:00
Lab Results
WBC 8.2 10^3/uL (4.8-10.8) 06/18/25 00:39
RBC 2.96 10^6/uL (4.70-6.10) L 06/18/25 00:39
Hgb 8.8 g/dL (13.0-18.0) L 06/18/25 00:39
Hct 28.0 % (39.0-52.0) L 06/18/25 00:39
Plt Count 123 10^3/uL (130-400) L 06/18/25 00:39
Sodium 141 mmol/L (135-145) 06/18/25 00:39
Potassium 5.7 mmol/L (3.5-5.1) H 06/18/25 00:39
Chloride 107 mmol/L (98-107) 06/18/25 00:39
Carbon Dioxide 16 mmol/L (22-30) L 06/18/25 00:39
BUN 119 mg/dl (9-20) H* 06/18/25 00:39
Creatinine 9.6 mg/dL (0.7-1.3) H* 06/18/25 00:39
eGFR 4.89 06/18/25 00:39
Glucose 122 mg/dl (70-99) H 06/18/25 00:39
Calcium 7.4 mg/dl (8.4-10.2) L 06/18/25 00:39
Sqi-H-Hbxpirkomqb Pept > 72700 pg/ml 06/18/25 00:39
Albumin 4.5 g/dl (3.5-5.0) 06/18/25 00:39
Physical Exam
General: Awake, Alert, Oriented, AOx3, No Distress and Nontoxic
HEENT: EOMI, Anicteric, Conjunctivae Clear, Facial Symmetry and Neck Supple
Respiratory: Clear, Crackels, Normal Excursion and Nonlabored Respirations
Cardiac: S1/S2 and Regular Rate/Rhythm
Breast: Deferred by me
Abdomen: Soft and Nontender
Musculoskeletal: No Cyanosis and Edema (1+)
Skin: No Rash
Neuro: Nonfocal/Grossly Intact
Vascular Access: AVF
Data Reviewed
-
Labs: Labs Reviewed by me and Discussed with Patient
Assessment/Plan
-
Impression:
shortness of breath, pulmonary edema
ESRD (TuSa 3hr) [facility] in [place]
Benign HTN
AV fistula last fistulogram 02/2025
BPH
Anemia of chronic disease/ESRD
CAD/NM/CABG s/p stent 11/2023
RBBB
Paroxysmal A-fib
Cardiac murmur
Bradycardia due to labetalol
Chronic diastolic CHF
HLD
Depression
Gout
Medical noncompliance (allows only two 3-hour HD treatments weekly)
Chronic dizziness
Chronic watery brown diarrhea x 1 month-unclear etiology
Plan:
A/w sob, hypervolemia
not compliant with HDs , by his choice only twice weekly for 3hrs
will schedule HD today and UF as much possible
BP are high end, monitor post HD
has chr dizziness with orthostasis
he still makes urine hence cont lasix
d/w pt
[2025-06-18] MEDS: RETACRIT 8000 UNITS IV (09:47)
--- NOTE | 2025-06-18 10:44 | W.PN.NEPH.HD ---
Assessment
-
pt seen during HD
vitals stable
UF as tolerated
AVF functions fine
may need extra UF but pt not willing
Progress Note - Hemodialysis
-
Date of Service: June 18, 2025
Duration: 30 minutes and 3 hours
Potassium Bath: 2
Calcium Bath: 2.5
Opti-Dialyzer: 160
Ultrafiltration: Other (2.5-3kg)
Blood Flow: 400
Dialysate Flow: 600
Heparin: no
EPO: 8000
[2025-06-18] MEDS: COREG 6.25 MG PO ×2 (13:07→20:17)
[2025-06-18] MEDS: LASIX 80 MG PO ×2 (13:08→16:38)
[2025-06-18] MEDS: ELIQUIS 2.5 MG PO ×2 (13:08→20:17)
[2025-06-18] MEDS: LIPITOR 80 MG PO (13:08)
[2025-06-18] MEDS: COZAAR 25 MG PO (13:08)
[2025-06-18] MEDS: PROTONIX 40 MG PO (13:09)
[2025-06-18] MEDS: NORVASC 5 MG PO (13:09)
[2025-06-18] MEDS: FLOMAX 0.4 MG PO ×2 (13:09→20:17)
[2025-06-18] MEDS: ZOLOFT 50 MG PO ×2 (13:13→20:17)
[2025-06-18 13:50] LABS: Troponin I 0.095 ng/ml
--- NOTE | 2025-06-18 15:15 | W.PN.HOSP.TC ---
Today's Communication/Plan
-
Assessment / Plan
Assessment / Plan
General: No Apparent Distress, Comfortable and Conversant
HEENT: NormoCephalic, Moist mucous membranes, Atraumatic
Respiratory: Clear and Non Labored Respirations
Cardiac: S1/S2 and Regular Rhythm; No Rub or Gallop
GI: Soft, Non Tender, Non Distended and Normal Bowel Sounds
Musculoskeletal: No Edema, no deformity
Skin: Warm and dry
: NO Escobar
Neuro: Awake, Alert, Nonfocal/grossly intact
Psych: Calm and Intact Judgment/Insight
Mr. Frost is an 84-year-old male with a medical history of ESRD (on HD only Friday and Friday, by his choice), paroxysmal A-fib (on Eliquis), CAD (status post CABG), PAD, CVA, anemia of chronic disease, and hypertension who presented with
shortness of breath and fatigue. He was found to be normotensive and saturating appropriately on room air. Chest imaging showed pulmonary edema. Labs revealed a BNP greater than 27,000, mildly elevated but stable troponins, and a creatinine of
9.6 with a BUN of 119. He was started on BiPAP with improvement in his dyspnea. He was not hypoxic. He was admitted for further evaluation and management including dialysis.
Volume overload:
- Secondary to need for dialysis
- Patient usually undergoes HD only Tuesdays and Saturdays for 3 hours each time due to his choice, would most likely benefit from more frequent dialysis
- He is receiving dialysis this morning 06/18, with ultrafiltration as much as possible
- Continue further dialysis per nephrology recommendations
- Currently in the comfortably and saturating appropriately on room air, no longer dyspneic
- Continue diuresis with Lasix 40 mg p.o. twice daily, patient still makes urine
A-fib:
- Currently rate controlled
- Continue beta-blockade with carvedilol 6.25 milligrams twice daily
- Anticoagulation with low-dose Eliquis
Hypertension:
- Partially due to volume overload which is being treated as above
- Continue amlodipine 5 mg daily and losartan 25 mg daily
DVT prophylaxis: Low-dose Eliquis
CODE STATUS: DNR
Total time spent on today's encounter was 45 minutes
Anticipated Discharge: 24 - 48 hours
Subjective/Interval History
-
Date of Service: June 18, 2025
Patient was seen and examined at bedside this morning. He was getting dialysis in his room at that time. Reports feeling very tired.
Objective Data
-
Vital Signs:
Vital Signs
Temp Pulse Resp BP Pulse Ox
97.7 F 88 26 171/81 99
06/18/25 11:00 06/18/25 13:07 06/18/25 11:00 06/18/25 13:07 06/18/25 11:00
Review of Systems
-
History Source: Patient
All other systems: Reviewed and negative
Constitutional: Reports Fatigue
Physical Exam
-
General: No Apparent Distress
[2025-06-18] MEDS: DUONEB 3 ML INH (21:12)
[2025-06-18] MEDS: REMERON 7.5 MG PO (21:57)
[2025-06-19 03:00] VITALS: BP 149/70
[2025-06-19 04:26] VITALS: BMI 23.7
[2025-06-19] MEDS: DUONEB 3 ML INH (05:45)
[2025-06-19 07:00] VITALS: BP 169/72
[2025-06-19] MEDS: ELIQUIS 2.5 MG PO ×2 (08:17→19:52)
[2025-06-19] MEDS: LASIX 80 MG PO ×2 (08:17→16:09)
[2025-06-19] MEDS: LIPITOR 80 MG PO (08:18)
[2025-06-19] MEDS: PROTONIX 40 MG PO (08:18)
[2025-06-19] MEDS: COREG 6.25 MG PO ×2 (08:18→19:51)
[2025-06-19] MEDS: NORVASC 5 MG PO (08:18)
[2025-06-19] MEDS: COZAAR 25 MG PO (08:18)
[2025-06-19] MEDS: FLOMAX 0.4 MG PO ×2 (08:18→19:53)
[2025-06-19] MEDS: ZOLOFT 50 MG PO ×2 (08:18→19:52)
[2025-06-19 09:08] LABS: Blood Urea Nitrogen 62 mg/dl (9-20); Calcium 7.9 mg/dl (8.4-10.2); Carbon Dioxide 24 mmol/L (22-30); Chloride 102 mmol/L (98-107); Estimated Creatinine Clearance 9 ml/min; Glucose 120 mg/dl (70-99); HDL Cholesterol 54 mg/dl; LDL Cholesterol, Calculated 47 mg/dl; Magnesium 1.8 mg/dl (1.6-2.3); Potassium 4.0 mmol/L (3.5-5.1); Sodium 141 mmol/L (135-145); Very Low Density Lipoprotein 16 mg/dl (0-30); eGFR 7.53
--- NOTE | 2025-06-19 10:16 | CM ---
town manager reviewed patient's chart and met with patient and patient states he lives alone in a 2 story home, patient states he is independent with adl's and uses 2 crutches with ambulation, patient drives, per patient he goes to HD on Friday and
Saturdays at 5:30 pm chair, patient refuses to go to HD on .
Patient transports himself to HD.
PCP: Dr. Jose Tamez
Pharmacy: [facility] in [place]
Plan; Home with stable and follow up with [facility]
[phone]
[2025-06-19 11:00] VITALS: BP 151/63
--- NOTE | 2025-06-19 12:37 | W.PN.NEPH.PH ---
Today's Communication / Plan
-
HD on Friday
Assessment/Plan
-
Impression:
shortness of breath, pulmonary edema
ESRD ( 3hr) [facility] in [place]
Benign HTN
AV fistula last fistulogram 02/2025
BPH
Anemia of chronic disease/ESRD
CAD/ME/CABG s/p stent 11/2023
RBBB
Paroxysmal A-fib
Cardiac murmur
Bradycardia due to labetalol
Chronic diastolic CHF
HLD
Depression
Gout
Medical noncompliance (allows only two 3-hour HD treatments weekly)
Chronic dizziness
Chronic watery brown diarrhea x 1 month-unclear etiology
Plan:
A/w sob, hypervolemia
not compliant with HDs , by his choice only twice weekly for 3hrs
will schedule HD Friday
improving resp symp but reports not baseline
BP are high end, cont home meds
has chr dizziness with orthostasis
expect BP to improve with further UF
d/w pt
-
-
Date of Service: June 19, 2025
CC / HPI / ROS
-
Chief Complaint:
ESRD
History of Present Illness:
Bp better but high
wt is down
no fever. hb at 8.3
Review of Systems:
no cp, sob better but not baseline
no n/v
Labs
-
Labs:
WBC 8.2 10^3/uL (4.8-10.8) 06/18/25 00:39
RBC 2.96 10^6/uL (4.70-6.10) L 06/18/25 00:39
Hgb 8.8 g/dL (13.0-18.0) L 06/18/25 00:39
Hct 28.0 % (39.0-52.0) L 06/18/25 00:39
Plt Count 123 10^3/uL (130-400) L 06/18/25 00:39
Sodium 141 mmol/L (135-145) 06/19/25 08:03
Potassium 4.0 mmol/L (3.5-5.1) D 06/19/25 08:03
Chloride 102 mmol/L (98-107) 06/19/25 08:03
Carbon Dioxide 24 mmol/L (22-30) 06/19/25 08:03
BUN 62 mg/dl (9-20) H 06/19/25 08:03
Creatinine 6.7 mg/dL (0.7-1.3) H* 06/19/25 08:03
eGFR 7.53 06/19/25 08:03
Glucose 120 mg/dl (70-99) H 06/19/25 08:03
Calcium 7.9 mg/dl (8.4-10.2) L 06/19/25 08:03
Phosphorus 4.6 mg/dl (2.5-4.5) H 06/19/25 08:03
Ctp-D-Todddpbdvjk Pept > 07807 pg/ml 06/18/25 00:39
Albumin 4.5 g/dl (3.5-5.0) 06/18/25 00:39
Physical Exam
-
Vital Signs:
Vital Signs
Temp Pulse Resp BP Pulse Ox
97.9 F 83 20 151/63 97
06/19/25 11:00 06/19/25 11:00 06/19/25 11:00 06/19/25 11:00 06/19/25 11:00
Cardiovascular:: Regular rate and rhythm
Respiratory:: Bilateral: CTA
Lung Excursion:: Normal
Abdomen:: Nontender and Soft
Bowel Sounds:: Normal
Extremity Edema:: None: Bilateral:
Escobar Catheter: No
[2025-06-19 15:00] VITALS: BP 130/54
--- NOTE | 2025-06-19 15:01 | W.PN.HOSP.TC ---
Today's Communication/Plan
-
Assessment / Plan
Assessment / Plan
General: No Apparent Distress, Comfortable and Conversant
HEENT: NormoCephalic, Moist mucous membranes, Atraumatic
Respiratory: Clear and Non Labored Respirations
Cardiac: S1/S2 and Regular Rhythm; No Rub or Gallop
GI: Soft, Non Tender, Non Distended and Normal Bowel Sounds
Musculoskeletal: No Edema, no deformity
Skin: Warm and dry
: NO Escobar
Neuro: Awake, Alert, Nonfocal/grossly intact
Psych: Calm and Intact Judgment/Insight
Mr. Frost is an 84-year-old male with a medical history of ESRD (on HD only Friday and Friday, by his choice), paroxysmal A-fib (on Eliquis), CAD (status post CABG), PAD, CVA, anemia of chronic disease, and hypertension who presented with
shortness of breath and fatigue. He was found to be normotensive and saturating appropriately on room air. Chest imaging showed pulmonary edema. Labs revealed a BNP greater than 27,000, mildly elevated but stable troponins, and a creatinine of
9.6 with a BUN of 119. He was started on BiPAP with improvement in his dyspnea. He was not hypoxic. He was admitted for further evaluation and management including dialysis.
Volume overload:
- Secondary to need for dialysis
- Patient usually undergoes HD only Tuesdays and Saturdays for 3 hours each time due to his choice, would most likely benefit from more frequent dialysis
- He received dialysis yesterday morning 06/18, next dialysis planned for Friday
- Appreciate nephrology guidance
- Currently in the comfortably and saturating appropriately on room air, reports feeling slightly dyspneic
- Continue diuresis with Lasix 40 mg p.o. twice daily, patient still makes urine
ESRD:
- Plan as above
A-fib:
- Currently rate controlled
- Continue beta-blockade with carvedilol 6.25 milligrams twice daily
- Anticoagulation with low-dose Eliquis
Hypertension:
- Partially due to volume overload which is being treated as above
- Continue amlodipine 5 mg daily and losartan 25 mg daily
DVT prophylaxis: Low-dose Eliquis
CODE STATUS: DNR
Total time spent on today's encounter was 40 minutes
Anticipated Discharge: > 48 hours
Subjective/Interval History
-
Date of Service: June 19, 2025
Patient was seen and examined at bedside this morning. Still feeling short of breath but slightly better after dialysis yesterday.
Objective Data
-
Labs:
Laboratory Results
06/19/25
08:03
Sodium 141
Potassium 4.0 D
Chloride 102
Carbon Dioxide 24
BUN 62 H
Creatinine 6.7 H*
Glucose 120 H
Calcium 7.9 L
Vital Signs:
Vital Signs
Temp Pulse Resp BP Pulse Ox
97.9 F 83 20 151/63 97
06/19/25 11:00 06/19/25 11:00 06/19/25 11:00 06/19/25 11:00 06/19/25 11:00
I&O
06/18/25 06/19/25 06/20/25
06:59 06:59 06:59
Intake Total 240 / 240
Output Total 750 / 750
Balance -510 / -510
Review of Systems
-
History Source: Patient
All other systems: Reviewed and negative
Respiratory: Reports Trouble Breathing
Physical Exam
-
General: No Apparent Distress
[2025-06-19 19:52] VITALS: BP 117/59
[2025-06-19] MEDS: REMERON 7.5 MG PO (19:52)
[2025-06-19 23:16] VITALS: BP 121/62
[2025-06-20 04:13] VITALS: BP 153/68
[2025-06-20 06:00] VITALS: BMI 23.7
[2025-06-20 07:00] VITALS: BP 151/67
[2025-06-20 08:07] LABS: Blood Urea Nitrogen 67 mg/dl (9-20); Calcium 7.0 mg/dl (8.4-10.2); Carbon Dioxide 25 mmol/L (22-30); Chloride 103 mmol/L (98-107); Estimated Creatinine Clearance 8 ml/min; Glucose 107 mg/dl (70-99); Potassium 4.0 mmol/L (3.5-5.1); Sodium 140 mmol/L (135-145); eGFR 6.57
[2025-06-20] MEDS: COREG 6.25 MG PO ×2 (08:25→20:58)
[2025-06-20] MEDS: PROTONIX 40 MG PO (08:25)
[2025-06-20] MEDS: FLOMAX 0.4 MG PO ×2 (08:26→20:58)
[2025-06-20] MEDS: COZAAR 25 MG PO (08:26)
[2025-06-20] MEDS: ELIQUIS 2.5 MG PO ×2 (08:26→20:58)
[2025-06-20] MEDS: LASIX 80 MG PO ×2 (08:26→16:44)
[2025-06-20] MEDS: ZOLOFT 50 MG PO ×2 (08:26→20:58)
[2025-06-20] MEDS: NORVASC 5 MG PO (08:26)
[2025-06-20] MEDS: LIPITOR 80 MG PO (08:26)
[2025-06-20 11:00] VITALS: BP 149/62
--- NOTE | 2025-06-20 13:58 | W.PN.HOSP.TC ---
Today's Communication/Plan
-
Hemodialysis in the morning 06/21
Continue Coreg and losartan
Assessment / Plan
Assessment / Plan
Mr. Frost is an 84-year-old male with a medical history of ESRD (on HD only Friday and Friday, by his choice), paroxysmal A-fib (on Eliquis), CAD (status post CABG), PAD, CVA, anemia of chronic disease, and hypertension who presented with
shortness of breath and fatigue. He was found to be normotensive and saturating appropriately on room air. Chest imaging showed pulmonary edema. Labs revealed a BNP greater than 27,000, mildly elevated but stable troponins, and a creatinine of
9.6 with a BUN of 119. He was started on BiPAP with improvement in his dyspnea. He was not hypoxic. He was admitted for further evaluation and management including dialysis.
Volume overload:
- Secondary to need for dialysis
- Patient usually undergoes HD only Tuesdays and Saturdays for 3 hours each time due to his choice, would most likely benefit from more frequent dialysis
- He received dialysis yesterday morning 06/18, next dialysis planned for Friday
- Appreciate nephrology guidance
- Currently in the comfortably and saturating appropriately on room air, reports feeling slightly dyspneic
- Continue diuresis with Lasix increased to 80 mg twice a day mg p.o. twice daily, patient still makes urine
Cardiomyopathy.
Updated echo 06/20/25 LVEF 40% stage II diastolic dysfunction, no changes since echo 03/11
Continue current regimen including Coreg and losartan.
Outpatient follow-up with cardiology
ESRD:
- Plan as above
A-fib:
- Currently rate controlled
- Continue beta-blockade with carvedilol 6.25 milligrams twice daily
- Anticoagulation with low-dose Eliquis
Hypertension:
- Partially due to volume overload which is being treated as above
- Continue amlodipine 5 mg daily and losartan 25 mg daily
DVT prophylaxis: Low-dose Eliquis
CODE STATUS: DNR
Anticipated Discharge: 24 - 48 hours
Subjective/Interval History
-
Date of Service: June 20, 2025
Objective Data
-
Labs:
Laboratory Results
06/20/25
07:01
Sodium 140
Potassium 4.0
Chloride 103
Carbon Dioxide 25
BUN 67 H
Creatinine 7.5 H*
Glucose 107 H
Calcium 7.0 L
Vital Signs:
Vital Signs
Temp Pulse Resp BP Pulse Ox
97.9 F 69 18 149/62 97
06/20/25 11:00 06/20/25 11:00 06/20/25 11:00 06/20/25 11:00 06/20/25 11:00
I&O
06/19/25 06/20/25 06/21/25
06:59 06:59 06:59
Intake Total 240 / 240 240 / 240 240 / 240
Output Total 750 / 750
Balance -510 / -510 240 / 240 240 / 240
Physical Exam
-
General: Well Developed and No Apparent Distress
HEENT: Normocephalic, Atraumatic and Moist Mucous Membranes
Respiratory: Clear to Auscultation
Cardiac: Regular Rhythm and S1/S2; Negative Murmur, Rub or Gallop
GI: Soft, Nontender, Nondistended and Normal Bowel Sounds; Negative Organomegaly
Rectal: Deferred by Provider
Musculoskeletal: No Clubbing, No Cyanosis and No Edema
Skin: Negative Rash
Neuro: Nonfocal/Grossly Intact
[2025-06-20 15:00] VITALS: BP 161/70
--- NOTE | 2025-06-20 15:45 | CM ---
Addendum entered by Janice Almaguer 06/20/25 15:59:
Imm given to pt and form placed on the chart.
Original Note:
Chart reviewed. Met with Pt. possible D/C tomorrow to home, with no needs, after morning HD. [facility] notified of possible discharge. Pt also aware.
Plan; Home with no needs. Dialysis due on 06/21. [facility] aware.
[facility]
[phone]
[2025-06-20] MEDS: REMERON 7.5 MG PO (20:58)
[2025-06-20 23:55] VITALS: BP 128/67
[2025-06-21] VITALS: BP 128/67
[2025-06-21 06:00] VITALS: BMI 25.9
--- NOTE | 2025-06-21 07:52 | PN.CDI ---
CDI
- -
CDI:
Physician Documentation Request
Admit Date: 06/18/25 03:52
Dear Doctor Julia,
Please review the following and provide your response in the progress notes.
Clinical Indicators:
Nephrology, consult, 06/18
#...shortness of breath, pulmonary edema
#ESRD (TuSa 3hr) [facility] in [place]
#Chronic diastolic CHF
PN, 06/20
#...medical history of ESRD (on HD only Friday and Friday, by his choice),
#Chest imaging showed pulmonary edema.
#Labs revealed a BNP greater than 27,000,
#...was started on BiPAP with improvement in his dyspnea. He was not hypoxic.
#Volume overload:
#...- Secondary to need for dialysis
#...- Continue diuresis with Lasix increased to 80 mg twice a day mg p.o. twice daily,
Based on the above and your clinical assessment, please clarify the acuity and etiology of the pulmonary edema/volume overload:
Acute non-cardiac pulmonary edema due to fluid overload
Acute pulmonary edema due to heart failure (please specify type and acuity)
Type: systolic, diastolic, combined or other type
Acuity: acute (new onset), chronic or acute on chronic
Chronic pulmonary edema due to non-cardiac etiology (specify cause)
Other(please specify)
Use of terms such as suspected, likely, concern for, or probable (associated with a specific diagnosis that is being evaluated, monitored, or treated as if it exists) are acceptable and can be coded in the inpatient setting, when documented at the
time of discharge.
Thank you,
Bridgette Hodges RN BSN CCDS
CDI Specialist
Please contact via tiger text
Please use your independent medical judgment in providing your response.
[2025-06-21 07:55] VITALS: BP 152/71
--- NOTE | 2025-06-21 08:01 | PN.CDI ---
CDI
- -
CDI:
Physician Documentation Request
Admit Date: 06/18/25 03:52
Dear Doctor Julia,
Please review the following and provide your response in the progress notes.
Clinical Indicators:
PN, 06/20
#...Labs revealed a BNP greater than 27,000, mildly elevated but stable troponins,....
Laboratory Tests
06/18/25 06/18/25 06/18/25
00:39 06:24 12:54
Troponin I 0.108 H* 0.109 H* 0.095 H*
Based on the above, please clarify in the progress notes, the appropriate diagnosis, if significant, that supports the above abnormalities and additional evaluation, monitoring and/or treatment rendered:
Non ischemic myocardial injury
Abnormal lab value, clinically insignificant
Other(please specify)
Use of terms such as suspected, likely, concern for, or probable (associated with a specific diagnosis that is being evaluated, monitored, or treated as if it exists) are acceptable and can be coded in the inpatient setting, when documented at the
time of discharge.
Thank you,
Bridgette Hodges RN BSN CCDS
CDI Specialist
Please contact via tiger text
Please use your independent medical judgment in providing your response.
--- NOTE | 2025-06-21 08:06 | PN.CDI ---
CDI
- -
CDI:
Physician Documentation Request
Admit Date: 06/18/25 03:52
Dear Doctor Julia,
Please review the following and provide your response in the progress notes.
Clinical Indicators:
Nephrology, consult, 06/18
#...shortness of breath, pulmonary edema
#ESRD (Sa 3hr) [facility] in [place]
#Chronic diastolic CHF
PN, 06/20
#...BNP greater than 27,000, ...
#...medical history of ESRD (on HD only Friday and Friday, by his choice),
#Chest imaging showed pulmonary edema.
#Labs revealed a BNP greater than 27,000,
#...was started on BiPAP with improvement in his dyspnea. He was not hypoxic.
#Volume overload:
#...- Secondary to need for dialysis
#...- Continue diuresis with Lasix increased to 80 mg twice a day mg p.o. twice daily,
Laboratory Tests
06/18/25
00:39
Qnp-Z-Srjzynhzjim Pept > 11676
Based on the above and your clinical assessment, please clarify the acuity and etiology of the pulmonary edema/volume overload:
Acute non-cardiac pulmonary edema due to fluid overload
Acute pulmonary edema due to heart failure (please specify type and acuity)
Type: systolic, diastolic, combined or other type
Acuity: acute (new onset), chronic or acute on chronic
Chronic pulmonary edema due to non-cardiac etiology (specify cause)
Other(please specify)
Use of terms such as suspected, likely, concern for, or probable (associated with a specific diagnosis that is being evaluated, monitored, or treated as if it exists) are acceptable and can be coded in the inpatient setting, when documented at the
time of discharge.
Thank you,
Bridgette Hodges RN BSN CCDS
CDI Specialist
Please contact via tiger text
Please use your independent medical judgment in providing your response.
[2025-06-21 08:24] LABS: Hematocrit 25.4 % (39.0-52.0); Hemoglobin 8.1 g/dL (13.0-18.0)
[2025-06-21] MEDS: RETACRIT 10000 UNITS IV (09:19)
[2025-06-21 10:15] LABS: Blood Urea Nitrogen 74 mg/dl (9-20); Calcium 6.7 mg/dl (8.4-10.2); Carbon Dioxide 20 mmol/L (22-30); Chloride 104 mmol/L (98-107); Estimated Creatinine Clearance 6 ml/min; Glucose 195 mg/dl (70-99); Potassium 4.2 mmol/L (3.5-5.1); Sodium 139 mmol/L (135-145); eGFR 5.74
--- NOTE | 2025-06-21 10:34 | W.PN.NEPH.HD ---
Assessment
-
Seen on HD. no new issues. VSS< access ok
off supplemental O2
Progress Note - Hemodialysis
-
Date of Service: June 21, 2025
Duration: 30 minutes and 3 hours
Potassium Bath: 2
Calcium Bath: 2.5
Opti-Dialyzer: 160
Ultrafiltration: Other (4kg)
Blood Flow: 400
Dialysate Flow: 600
Heparin: 0
EPO: 44205 units
[2025-06-21] MEDS: COZAAR 25 MG PO (12:14)
[2025-06-21] MEDS: LIPITOR 80 MG PO (12:14)
[2025-06-21] MEDS: ZOLOFT 50 MG PO (12:14)
[2025-06-21] MEDS: LASIX 80 MG PO (12:14)
[2025-06-21] MEDS: PROTONIX 40 MG PO (12:15)
[2025-06-21] MEDS: FLOMAX 0.4 MG PO (12:15)
[2025-06-21] MEDS: ELIQUIS 2.5 MG PO (12:15)
[2025-06-21] MEDS: COREG 6.25 MG PO (12:15)
[2025-06-21] MEDS: NORVASC 5 MG PO (12:15)
--- NOTE | 2025-06-21 12:18 | W.DS.TRANS ---
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
-
Discharge Instructions:
Sleep Apnea Risk Intermediate
Discharge Diagnosis/Procedures ESRD with volume overload
Diet 2 Gram Sodium
Instructions:
Stand-Alone Forms:
Changes to Home Medications: No
Discharge Medications:
DC Medications w/original date entered in [email or web address]
apixaban 2.5 mg tablet (Eliquis) 2.5 mg PO BID blood thinner #60 tabs 05/12/21
atorvastatin 80 mg tablet 80 mg PO DAILY High cholesterol 01/03/22
tamsulosin 0.4 mg capsule 0.4 mg PO BID Urinary issue 02/08/22
pantoprazole 40 mg tablet,delayed release 40 mg PO DAILY #30 tabs 12/02/23
amlodipine 5 mg tablet 5 mg PO DAILY Blood pressure #30 tabs 12/16/23
furosemide 80 mg tablet 80 mg PO BID Fluid Retention/Swelling 01/06/24
losartan 25 mg tablet 25 mg PO DAILY Blood Pressure 01/06/24
carvedilol 6.25 mg tablet (Coreg) 6.25 mg PO BID #90 tabs 01/09/24
mirtazapine 7.5 mg tablet 7.5 mg PO HS Mental Health/Anxiety 04/12/25
sertraline 50 mg tablet 50 mg PO BID Depression 04/12/25
Home Medication Changes
Pending Results: No
--- NOTE | 2025-06-21 12:31 | CM ---
Pt completed HD today. Pt is D/C to home, no needs. Dtr will transport Pt home. Notified [facility] of D/C. Requesting last Dialysis treatment sheet and D/C summary: documents faxed
Plan: Pt is D/C to home, no needs
[facility]
[phone]
[2025-06-21 15:43] VITALS: BP 149/60
== END 2025-06-21 17:37 | disposition home or self-care (01) | DRG 291 ==
LOC: 4 WEST ACU 03:52
PROVIDERS: Specialist; ADMITTING PHYSICIAN Internal Medicine; ATTENDING PHYSICIAN Internal Medicine; EMERGENCY PHYSICIAN Emergency Medicine; OTHER PHYSICIAN Internal Medicine
PROC: 5A09357 Assistance with Respiratory Ventilation, Less than 24 Consecutive Hours, Continuous Positive Airway Pressure (ICD-10-PCS; 2025-06-18)
PROC: 5A1D70Z Performance of Urinary Filtration, Intermittent, Less than 6 Hours Per Day (ICD-10-PCS; 2025-06-18)
DX: I13.2 Hypertensive heart and chronic kidney disease with heart failure and with stage 5 chronic kidney disease, or end stage renal disease (principal); I50.33 Acute on chronic diastolic (congestive) heart failure; N18.6 End stage renal disease; I69.354 Hemiplegia and hemiparesis following cerebral infarction affecting left non-dominant side; I45.2 Bifascicular block; I48.20 Chronic atrial fibrillation, unspecified; E11.22 Type 2 diabetes mellitus with diabetic chronic kidney disease; I42.9 Cardiomyopathy, unspecified; I25.10 Atherosclerotic heart disease of native coronary artery without angina pectoris; N40.0 Benign prostatic hyperplasia without lower urinary tract symptoms; M10.9 Gout, unspecified; E78.00 Pure hypercholesterolemia, unspecified; F32.A Depression, unspecified; R29.6 Repeated falls; E03.9 Hypothyroidism, unspecified; D63.1 Anemia in chronic kidney disease; Z66 Do not resuscitate; Z60.2 Problems related to living alone; Z99.2 Dependence on renal dialysis; I25.2 Old myocardial infarction; Z95.1 Presence of aortocoronary bypass graft; Z95.5 Presence of coronary angioplasty implant and graft; Z87.891 Personal history of nicotine dependence; Z79.01 Long term (current) use of anticoagulants; Z86.718 Personal history of other venous thrombosis and embolism; Z86.19 Personal history of other infectious and parasitic diseases; Z91.158 Patient's noncompliance with renal dialysis for other reason; Z82.3 Family history of stroke
CPT/HCPCS: 71045; 80048; 80053; 80061; 83735; 83880; 84100; 84484; 85014; 85018; 85025; 87070; 93005; 93308; 93321; 93325; 94640; 94660; 96365; 96375; 99291; G0257; P9047; Q5106

== ENCOUNTER 2025-07-04 04:26 | Inpatient (IN) | payer MEDICARE, SELFPAY ==
[2025-07-04] VITALS (15 sets, daily range): BP systolic 129–190; BP diastolic 55–82; BMI 27.7; BMI 27.0
[2025-07-04 01:47] LABS: Hematocrit 27.7 % (39.0-52.0); Hemoglobin 8.7 g/dL (13.0-18.0); Mean Corp Hgb Conc. 31.4 g/dL (33.0-37.0); Mean Corpuscular Volume 95.8 fL (80.0-94.0); Platelet Count 120 10^3/uL (130-400); Red Cell Dist. Width 16.7 % (11.5-14.5)
[2025-07-04 02:10] LABS: Absolute Neutrophils -Man Diff 5.0 10^3/uL (1.4-6.5); Anisocytosis 1+; Normal RBC Morphology No; Platelets Checked Yes; Total Cells Counted 100
[2025-07-04 02:17] LABS: Troponin I 0.034 ng/ml
[2025-07-04 02:29] LABS: ALT (SGPT) 33 U/L (0-50); AST (SGOT) 27 U/L (17-59); Albumin 4.4 g/dl (3.5-5.0); Alkaline Phosphatase 79 U/L (38-126); Blood Urea Nitrogen 136 mg/dl (9-20); Calcium 8.9 mg/dl (8.4-10.2); Carbon Dioxide 19 mmol/L (22-30); Chloride 107 mmol/L (98-107); Estimated Creatinine Clearance 5 ml/min; Glucose 112 mg/dl (70-99); Potassium 7.0 mmol/L (3.5-5.1); Sodium 140 mmol/L (135-145); Total Protein 6.8 g/dl (6.3-8.2); eGFR 4.65
--- NOTE | 2025-07-04 02:39 | ED.GENMED ---
History of Present Illness
General
Chief Complaint: Weakness
Source: patient, ambulance crew and previous hospital records (Recent hospitalization June 18 to June 21 for treatment of pulmonary edema secondary to volume overload with missed hemodialysis.)
Exam Limitations: none
Time Seen by Provider: 07/04/25 02:05
Nursing documentation reviewed up to this point in time: agreed with
History of Present Illness
History of Present Illness:
This is an 84-year-old gentleman with history of end-stage renal disease, dialysis dependent twice weekly. Tuesdays and Saturdays. He also has history of PAF on Eliquis, CAD status post CABG and multiple cardiac interventions, PAD,
wow-ysthihe-errmttvyi diabetes, CVA, hypertension. Most recently hospitalized June 18 to June 21 for treatment of acute pulmonary edema related to missed hemodialysis. He was also noted to have non-[place] troponin elevation. Echocardiogram showed
EF of 40% stage II diastolic dysfunction with no changes in his echo since February 2025. There was recommendations to increase dialysis to 3 times weekly but patient has continued twice weekly dialysis and has been doing well until missing his most
recent dialysis this past Friday. He complains of 2-day history of cough, generalized fatigue and weakness as well as generalized headache. His appetite has been good. He has had no nausea or vomiting. No diarrhea. He does note intermittent
chest discomfort, more so with coughing. He notes difficulty sleeping over the past few days. He has not had a fall.
Although resides independently he is generally able to perform his ADLs and he continues to drive himself to dialysis.
Past History
Past History
ED Past Medical History: Arrthythmia (Atrial fib), CAD, CHF, CVA (Left sided weakness slight), HTN, Hypercholesterolemia, NIDDM, [place], Renal failure (Dialysis Friday and Friday) and Other (TIA 2002, Diverticulosis, Anemia, right central retinal
artery occlusion)
ED Past Surgical History: Cardiac (Cardiac stents, LINQ device placement, CABG) and Other (Cataracts, Left arm fistula)
Social History
Tobacco: Former smoker
Alcohol: None
Personal:
Living: alone
Employment: Retired
Family History
Family History: Other (Reviewed and noncontributory)
Phy Exam
Physical Exam
Physical Exam:
GENERAL: 84-year-old gentleman appears his stated age, awake and alert, appears moderately fatigued but easily communicative. Rare brief nonproductive cough is noted. No respiratory distress. Low-grade fever noted.
EYE: pupils equal and reactive. anicteric
NECK: Supple, nontender, no meningismus, no significant adenopathy. Mild JVD.
ENT: posterior pharynx is clear, oral mucosa is mildly dry. No rhinorrhea.
CARDIAC: Regular rate and rhythm. Occasional ectopy. No murmur.
LUNGS: no acute respiratory distress, bibasilar rales left greater than right with decreased breath sounds left base.
ABDOMEN: Rotund, soft, nondistended, without focal tenderness, no r/g, no cvat. normoactive BS.
NEUROLOGICAL: Alert and oriented x3, no focal neuro deficits.
SKIN: Mildly hot to touch and dry, normal color, skin intact. No rash.
MUSCULOSKELETAL: No C/C/E. peripheral pulses are full and equal b/l. No palpable tenderness.
PSYCH: Normal and appropriate interaction.
Course
Orders/Labs/Results
Orders:
Orders
07/04/25 01:01
EKG [Electrocardiogram (*1)] Urgent
Reason for Study: Chest Pain
EKG- Treatment ONCE
CR Chest - 2 Views Urgent
Comment:
Reason For Exam: chest pain
07/04/25 01:37
Complete Blood Count/With Diff Urgent
Comprehensive Metabolic Panel Urgent
Manual Differential Urgent
NT-proBNP Urgent
Troponin I Urgent
07/04/25 02:34
Calcium Gluconate 1,000 mg IV NOW STA
Dextrose 50%-Water [Dextrose 50% Syringe] 12.5 grams IV [id number] PRN
Dextrose 50%-Water [Dextrose 50% Syringe] 25 grams IV NOW STA
Furosemide [Lasix] 80 mg IV NOW STA
Insulin Human Regular [Novolin R] 5 units IV NOW STA
Sodium Bicarbonate 50 meq IV NOW STA
Sodium Zirconium Cyclosilicate [Lokelma] 10 gram PO NOW STA
07/04/25 02:35
Urinalysis Reflex To Culture Urgent
07/04/25 02:36
Bedside Glucose PRE IV Insulin- HyperK+ NOW
07/04/25 02:51
COVID-19 Antigen Urgent
Source: Nasal Swab
Lactic Acid Urgent
Potassium Urgent
Comment: draw 2 hours after regular insulin IV administration
Blood Culture Q30M
DREW Source: Blood/Venous
Specimen Description:
Blood Culture Q30M
DREW Source: Blood/Venous
Specimen Description:
07/04/25 03:33
Admit/Transfer Patient As Directed
Co-Sign Provider:
Level of Care: Inpatient admission
Assign to:: Telemetry
Physician / Group: Aliza
Diagnosis: Hyperkalemia
Reason for Telemetry: Other
Other Reason for Telemetry: hyperkalemia
Date to Stop Telemetry: 07/06/25
Time to Stop Telemetry: 11:00
Reason for Hospitalization: Hyperkalemia
Expected length of stay greater than two midnights?: Yes
ELOS- Estimated Length of Stay in days: 2
I certify the patient meets the requirements for IP care: Yes
PRN Pain Medication Management As Directed
May give lesser potent ordered pain med per pt: Yes
preference::
Protocol:: Medication orders for pain may be administered in a
manner that supports deferring to patient preference
when the pt is:
- Requesting an ordered lesser potent pain medication.
Least to most potent pain medications are defined
as: acetaminophen < NSAID < tramadol < opioids
(morphine, oxycodone, hydromorphone).
- Requesting a lesser dose of the same medication IF
ORDERED.
- Requesting a less intrusive route of administration
if both routes are prescribed by the provider (PO <
IV).
07/04/25 03:34
Code Status As Directed
Resuscitation Status: Do not resuscitate
Reached after discussion with pt or family/Healthcare POA: Yes
07/04/25 03:35
DNR Bracelet Application ONCE
07/04/25 03:40
Ipratropium/Albuterol Sulfate [Duoneb] 3 ml INH R NOW ONE
07/04/25 04:06
Bedside Glucose POST IV Insulin- HyperK+ Q1HX2,Q2HX2
07/04/25 04:15
CefTRIAXone [Rocephin] 1,000 mg IV NOW STA
Doxycycline Hyclate [Vibramycin] 100 mg 0.9% Sodium Chloride 250 ml [Nss] 250 ml IV NOW
07/04/25 05:17
BMP [Basic Metabolic Panel] Urgent
CBC/No Diff [Complete Blood Count/No Diff] Urgent
07/04/25 Breakfast
Potassium, 2 Gram
At Your Request: Limited Participation
07/04/25 06:53
Acetaminophen [Tylenol] 650 mg PO Q4HPRN PRN
Bisacodyl [Dulcolax] 10 mg RECTAL [id number] PRN
Docusate W/Senna [Senokot-S] 1 tablet PO BIDPRN PRN
Ipratropium/Albuterol Sulfate [Duoneb] 3 ml INH R Q4HPRN PRN
Ondansetron Injectable [Zofran] 4 mg IV Q6HPRN PRN
Polyethylene Glycol Powder [Miralax] 17 grams PO DAILYPRN PRN
07/04/25 06:53
NEPHROLOGY CONSULT Routine
Consulting Provider: Hernando Mckeon V.
Was physician already notified: Yes
Reason for consult: Hyperkalemia
VTE Contraindication Routine
VTE Mechanical Device Contraindication: Medical Contraindication
Pharmocologic Contraindication: Medical Contraindication
Activity As Directed
Activity Level: With Assistance
Vital Signs As Directed
Frequency: Per unit guidelines
O2 Therapy [RESP] Routine
Nasal Cannula Liter Flow: 2 LPM
Titrate/Wean O2 to maintain O2 sat greater than (%): 93
Pulse Ox/cont/shift [RESP] Routine
Quantity: 1
07/04/25 08:00
Albuterol Nebs [Ventolin Nebules] 2.5 mg INH R QID
Amlodipine [Norvasc] 5 mg PO DAILY
Apixaban [Eliquis] 2.5 mg PO BID
Atorvastatin [Lipitor] 80 mg PO DAILY
Carvedilol [Coreg] 6.25 mg PO BID
Furosemide [Lasix] 80 mg IV BID AT 0800,1600
Pantoprazole [Protonix] 40 mg PO DAILY
Sertraline HCl [Zoloft] 50 mg PO BID
Tamsulosin [Flomax] 0.4 mg PO BID
07/04/25 20:00
Doxycycline [Vibramycin] 100 mg PO BID
07/04/25 22:00
Mirtazapine [Remeron] 7.5 mg PO HS
07/05/25 04:00
CefTRIAXone [Rocephin] 1,000 mg IV Q24H
07/06/25 11:00
DC Protocol for Telemetry ONCE
Abnormal Lab Results
07/04/25 07/04/25 07/04/25
01:37 02:51 02:52
RBC 2.89 L 10^6/uL
(4.70-6.10)
Hgb 8.7 L g/dL
(13.0-18.0)
Hct 27.7 L %
(39.0-52.0)
MCV 95.8 H fL
(80.0-94.0)
MCHC 31.4 L g/dL
(33.0-37.0)
RDW 16.7 H %
(11.5-14.5)
Plt Count 120 L 10^3/uL
(130-400)
MPV 11.1 H fL
(7.4-10.4)
Band Neutrophils 6 H %
(0-3)
Lymphocytes (Manual) 10 L %
(20-51)
Potassium 7.0 H* mmol/L 6.8 H* mmol/L
(3.5-5.1) (3.5-5.1)
Carbon Dioxide 19 L mmol/L
(22-30)
BUN 136 H* mg/dl
(9-20)
Creatinine 10.0 H* mg/dL
(0.7-1.3)
Glucose 112 H mg/dl
(70-99)
POC Glucose 125 H mg/dl
(70-99)
07/04/25
04:04
RBC
Hgb
Hct
MCV
MCHC
RDW
Plt Count
MPV
Band Neutrophils
Lymphocytes (Manual)
Potassium
Carbon Dioxide
BUN
Creatinine
Glucose
POC Glucose 122 H mg/dl
(70-99)
07/04/25 01:37
07/04/25 02:51
Vital Signs
Temp: 99.3 F
Initial and Last Documented VS:
Initial Vital Signs
Temp Pulse Resp Pulse Ox
97.6 F 76 18 100
07/04/25 00:54 07/04/25 00:54 08/18/25 00:54 07/04/25 00:54
Last Documented Vital Signs
Temp Pulse Resp BP Pulse Ox
98.5 F 96 30 157/82 99
07/04/25 06:14 07/04/25 07:01 07/04/25 06:15 07/04/25 07:01 07/04/25 07:01
MDM/Problems Addressed
Differential Diagnosis Includes:
The Differential Diagnosis includes, in no particular order and is not limited to:
1. Pneumonia
2. Congestive heart failure exacerbation
3. Hyperkalemia
4. Chronic kidney disease-associated symptoms
5. Acute respiratory infection
6. Dehydration
7. Medication-related side effects
8. Viral infection
9. Chronic obstructive pulmonary disease exacerbation
10. Pulmonary edema
11. UTI
12. Sepsis
13. ACS
MDM/Problems Addressed:
Acute Problems:
- Cough
- Generalized weakness
- Chest pain
Chronic Problems:
- Congestive heart failure
- Dialysis requirement
Chronic conditions affecting care: DM, HTN, CAD, Cardiomyopathy, Arrhythmia and Kidney disease
Acute Exacerbation and/or Progression of Chronic Illness: Kidney disease
*Radiology
Radiology exam reviewed: preliminary read by ED provider (Chest x-ray shows chronic cardiomegaly, there is a left lower lobe infiltrate versus effusion, new compared to previous. Mild interstitial fullness bilaterally.)
*Pulse Oximetry
SaO2: 95
Oxygen Mode of Delivery: Room air
Patient hypoxic: no
*EKG
Interpreted by ED Provider?: Yes
Interpretation: abnormal
Comparison EKG: changes noted (Bigeminy is new compared to previous EKG June 18. Right bundle branch block is chronic and unchanged.)
Rate: normal
Rhythm: sinus and other (Bigeminy)
[place]: normal axis
QRS Pattern: right bundle branch block
Ischemia: non-specific ST changes
*Photographic Machine Operator Interpretation
Rate: normal
Rhythm: sinus and PVC's (Intermittent bigeminy)
*Critical Care Note
Total Time (30-74mins, 75-104mins- exclusive of procedures): Not Applicable
Patient Management
Social determinants of health affecting care: Living situation (Patient resides alone and although reports he generally has no difficulty driving himself to dialysis twice weekly. He has missed a dialysis session now twice this month.) and Poor
social support
Escalation/DeEscalation of care consider admission/obs:
Chest x-ray concerning for left lower lobe pneumonia. Also note of an element of interstitial edema.
Labs are remarkable for significant hyperkalemia with potassium of 7.
Low-grade fever noted. Concern for sepsis. Will check lactic acid, blood cultures, urinalysis with reflex to culture. Will check COVID antigen.
Will require acute treatment/stabilization for hyperkalemia.
IV antibiotics for potential pneumonia.
Will require acute hospitalization for acute pulmonary edema, pneumonia, hyperkalemia.
Consider social service evaluation to assess for improvement and home care needs/reliability with outpatient follow-up.
ED Attending Note
-
Portions of this chart may have been created with voice recognition software.� Occasional wrong word or��sound alike� substitutions may have occurred due to the inherent limitations of voice recognition software.
Discharge Plan
Departure
Patient Disposition: Admit
Date of Disposition: 07/04/25
Time of Disposition: 03:00
Admit to: Telemetry
Admit to doctor: Aliza
Presentation/result/management discussed w/ accepting MD/DO: Hospitalist
Condition: Serious
Discharge Problem:
Left lower lobe pneumonia, Acute pulmonary edema related to missed , Hyperkalemia related to end-stage renal , Fever, rule out sepsis
Interventions
Interventions:
*Risk Screen - Suicide Last Done: 07/04/25 00:54
*General Assessment Last Done: 07/04/25 00:54
*Neglect/Abuse Screening Last Done: 07/04/25 00:54
*ED- Fall Risk Assessment Last Done: 07/04/25 01:00
*ED COVID-19 Vaccine History Last Done: 07/04/25 01:00
ED- Cardiac Assessment Last Done: 07/04/25 01:52
ED- Neurological Assessment Last Done: 07/04/25 01:52
ED- Pulmonary Assessment Last Done: 07/04/25 01:52
[2025-07-04 02:54] LABS: Glucose - Point of Care 125 mg/dl (70-99)
--- NOTE | 2025-07-04 03:02 | HPS.HSE ---
Family Physician
-
Family Physician: NOT KNOW UNKNOWN - PT DOES
Chief Complaint
-
Weakness
History of Present Illness
This is a 84-year-old male with past medical history significant for ischemic cardiomyopathy, CHF with reduced EF of 40%, end-stage renal disease on hemodialysis Saturdays, paroxysmal atrial fibrillation, BPH, CVA with residual
left-sided weakness who presents to the emergency department with feeling weak and having some shortness of breath.
Patient reported that for about 2 days he has been having incessant cough and when he is coughing he feels short of breath and has some chest congestion and heaviness. He missed dialysis on Friday due to the symptoms. He has been having fatigue.
He also reports having a headache for about 2 days. He denies any sinus congestion, postnasal drip sore throat or rhinorrhea. He denies any sick contacts. He reports low-grade fevers at home. He denies any nausea or vomiting or diaphoresis. He
denies any radiating chest pain, he denies any numbness or tingling. He completed his usual session of dialysis on without any complications.
In the emergency department he was afebrile, blood pressure was 180/70, respiratory rate was 18 and he was satting 95% on room air.
ECG shows sinus rhythm at rate of 72 with bigeminy and some widening of the QRS.
Her CBC is at baseline without leukocytosis and globin of 8.7 with a platelet count of 120. His BNP is elevated at 27,000 which is similar to prior, troponin was negative. Electrolytes notable for a potassium of 7.
Chest x-ray showing now mild to moderate pleural effusion with possible retrocardiac consolidation versus atelectasis.
Medical History
Past Medical History
Past Medical History: Reports Other
Additional Past Medical History:
Cardiac murmur
Cardiac stents�Stent March 2017, drug-eluting stent, multiple stents and PCI 2 stents to circumflex and PDA on 05/26/2008, 07/31/2011
CAD/[place]/CABG x 3 vessel 05/19/2017 GALVEZ to LAD, vein graft OM 2 sequential to OM [address] Wilkes 05/19/2017
2D echo 03/02/2025 EF 50-55%, normal LVS LVSF, mild LVH, mild inferior septal hypokinesis, stage I diastolic dysfunction, severely dilated LA, moderate MR, mild TR, PASP 22 mmHg
Stent coronary artery
RBBB
Paroxysmal A-fib
Bradycardia due to labetalol
ESRD on HD Friday by his choice
Anemia of chronic disease
Benign HTN
CVA with left-sided weakness
Dizziness
HLD
Depression
Past Surgical History: Reports Other
Additional Past Surgical History:
Stent March 2017, drug-eluting stent, multiple stents and PCI 2 stents to circumflex and PDA on 05/26/2008, 07/31/2011
CABG x 3 vessel GALVEZ to LAD, vein graft OM 2 sequential to OM [address] Wilkes 05/19/2017
AV fistula 11/03/2020, left arm fistulogram 01/05/2021, 04/13/2021
Stenting left upper extremity brachiocephalic fistula venous outflow stenosis Dr. Escobar 02/08/2022
Balloon angioplasty proximal venous stenosis of the left upper arm AV fistula Dr. Escobar 02/04/2023
Social History
Tobacco: Non-smoker
Alcohol: None
Drug: None
Personal: Single
Living: Alone
Employment: Retired
Family History
Family History: Other (Father age 61 [place] Mother age 70 CVA Son from suicide Son bladder cancer)
Allergies / Home Medications
Allergies reflects when Allergies were last updated in [employer].
Home Medications with original date entered in [employer]
Allergy/Medication List:
Allergies
Allergy/AdvReac Type Severity Reaction Status Date / Time
No Known Allergies Allergy Verified 04/12/25 14:18
Home Medications
apixaban 2.5 mg tablet (Eliquis) 2.5 mg PO BID blood thinner #60 tabs 05/12/21
atorvastatin 80 mg tablet 80 mg PO DAILY High cholesterol 01/03/22
tamsulosin 0.4 mg capsule 0.4 mg PO BID Urinary issue 02/08/22
pantoprazole 40 mg tablet,delayed release 40 mg PO DAILY #30 tabs 12/02/23
amlodipine 5 mg tablet 5 mg PO DAILY Blood pressure #30 tabs 12/16/23
furosemide 80 mg tablet 80 mg PO BID Fluid Retention/Swelling 01/06/24
losartan 25 mg tablet 25 mg PO DAILY Blood Pressure 01/06/24
carvedilol 6.25 mg tablet (Coreg) 6.25 mg PO BID #90 tabs 01/09/24
mirtazapine 7.5 mg tablet 7.5 mg PO HS 04/12/25
sertraline 50 mg tablet 50 mg PO BID 04/12/25
Review of Systems
-
History Source: Patient
Constitutional: Reports Fatigue
EENT: Reports No Symptoms
Respiratory: Reports Cough
Cardiac: Reports Chest Pain; Denies Diaphoresis or Palpitations
Abdomen/GI: Reports No Symptoms
: Reports No Symptoms
Musculoskeletal: Reports No Symptoms; Denies Edema
Skin: Reports No Symptoms
Neurological: Reports Headache and Weakness
Endocrine: Reports No Symptoms
Hematologic/Lymphatic: Reports No Symptoms
Psych: Reports No Symptoms
Physical Exam
Vital Signs
Vital Signs
Temp Pulse Resp Pulse Ox
99.3 F 75 18 95
07/04/25 02:52 07/04/25 01:36 07/04/25 01:36 07/04/25 02:52
Physical Exam
General: Well Developed
HEENT: NormoCephalic, Moist mucous membranes, Atraumatic and PERRLA
Respiratory: Clear and Crackles; No Wheezes, Rales or Rhonchi
Cardiac: S1/S2, Regular Rhythm and JVD; No Murmur, Rub or Peripheral Edema
Breast: Deferred by me
GI: Soft, Non Tender, Non Distended and Normal Bowel Sounds; No Organomegaly
Rectal: Deferred by Provider
Genito-urinary: Deferred by me
Musculoskeletal: No Clubbing, No Cyanosis and No Edema
Skin: No Rash
Neuro: AO x 3 and Nonfocal/grossly intact
Hematologic/Lymphatic: No Lymphadenopathy
Psych: Calm
Laboratory Results
-
07/04/25 01:37
Laboratory Results
Total Bilirubin 0.9 mg/dl (0.2-1.3) 07/04/25 01:37
AST 27 U/L (17-59) 07/04/25 01:37
ALT 33 U/L (0-50) 07/04/25 01:37
Alkaline Phosphatase 79 U/L (38-126) 07/04/25 01:37
Troponin I 0.034 ng/ml 07/04/25 01:37
Data Reviewed
-
Diagnostic Radiology: Image Personally Visualized and interpreted
Medical Tests (Nuc Med, Echo, EKG etc): Image Personally Visualized and interpreted
Lab Data: Labs Reviewed by me
Old Records: Reviewed
Impression/Plan
-
IMPRESSION:
84-year-old with complex past medical history including ischemic cardiomyopathy with CHF and reduced EF of around 40%, proximal atrial fibrillation, end-stage renal disease on hemodialysis, type 2 diabetes, hypertension presenting to the emergency
department after missing dialysis on Friday due to respiratory symptoms of nonproductive cough with some congestion, headaches and fatigue. Found to have hyperkalemia to 7.0 with bigeminy on ECG. Days rest of his labs are mostly unremarkable.
His chest x-ray does shows increased cyst bilateral pleural effusion compared to prior and retrocardiac opacity cannot be ruled out. He is currently afebrile and not on supplemental oxygen. Despite chronically elevated BNP (307,000), he does not
have markedly elevated JVD and does not have peripheral edema. However cannot rule out some role of congestive heart failure.
PLAN:
Hyperkalemia -ESRD on HD who previous twice weekly dialysis sessions, missed his last Friday dialysis, K7.0, bigeminy on ECG. Bicarb is 19,
- Admit to telemetry once K < 6
- Temporizing measures in ED with calcium gluconate, sodium bicarb, insulin/dextrose and Lokelma
- Repeat K in 2 hours
- nephrology consult for HD in am
Cough/congestion - suspect bronchitis without pneumonia. No known COPD and temporily smoked over 50 years ago. Faint crackles on ausculation. No wheezing.
- duonebs RTC and prn
- will start empiric doxycyline and azithromycin
- sputum culture
- monitor fever profile
Congestive heart failure -dyspnea with mild hypoxia satting around 90% on room air. Suspect some mild volume overload with chronically elevated BNP and slight jugular vein enlargement. Hypertensive but hemodynamically stable. Slight increase in
pleural effusion
- Lasix 80 mg IV bid while inpatient, on oral lasix 80 bid at home
- Plan HD in a.m.
- Continue Coreg 6.25 twice daily
- Sublingual nitroglycerin as needed chest pain
- Nephrology consulted
Paroxysmal atrial fibrillation
- continue coreg
- continue eliquis
Anemia - Hgb 8.7, similar to prior. ACD.
- monitor for now
- iron/ROB per HD likely not in setting of acute infection
- no recent hx of bleeding on AC
DVT PPX - on apixaban
Code status - DNR
[2025-07-04] MEDS: LOKELMA 10 GRAM PO (03:06)
[2025-07-04] MEDS: CALCIUM GLUCONATE 1000 MG IV (03:07)
[2025-07-04] MEDS: DEXTROSE 50% SYRINGE 25 GRAMS IV (03:09)
[2025-07-04] MEDS: NOVOLIN R 5 UNITS IV (03:09)
[2025-07-04] MEDS: SODIUM BICARBONATE 50 MEQ IV (03:12)
[2025-07-04] MEDS: LASIX 80 MG IV ×2 (03:17→07:38)
[2025-07-04] MEDS: DUONEB 3 ML INH (04:04)
[2025-07-04 04:05] LABS: Potassium 6.8 mmol/L (3.5-5.1)
[2025-07-04 04:05] LABS: Glucose - Point of Care 122 mg/dl (70-99)
[2025-07-04 04:08] LABS: COVID-19 Antigen Negative (Negative)
[2025-07-04] MEDS: ROCEPHIN 1000 MG IV (04:30)
[2025-07-04] MEDS: VIBRAMYCIN 260 MG IV (05:22)
[2025-07-04 05:34] LABS: Hematocrit 24.9 % (39.0-52.0); Hemoglobin 8.0 g/dL (13.0-18.0); Mean Corp Hgb Conc. 32.1 g/dL (33.0-37.0); Mean Corpuscular Volume 94.0 fL (80.0-94.0); Platelet Count 112 10^3/uL (130-400); Red Cell Dist. Width 16.7 % (11.5-14.5)
[2025-07-04 06:03] LABS: Calcium 8.6 mg/dl (8.4-10.2); Carbon Dioxide 17 mmol/L (22-30); Chloride 108 mmol/L (98-107); Estimated Creatinine Clearance 6 ml/min; Glucose 75 mg/dl (70-99); Potassium 5.9 mmol/L (3.5-5.1); Sodium 142 mmol/L (135-145); eGFR 4.77
[2025-07-04 06:12] LABS: Blood Urea Nitrogen 136 mg/dl (9-20)
[2025-07-04 06:27] LABS: Glucose - Point of Care 118 mg/dl (70-99)
[2025-07-04 07:20] LABS: Glucose - Point of Care 105 mg/dl (70-99)
[2025-07-04] MEDS: ELIQUIS 2.5 MG PO ×2 (07:35→20:28)
[2025-07-04] MEDS: FLOMAX 0.4 MG PO ×2 (07:35→20:28)
[2025-07-04] MEDS: NORVASC 5 MG PO (07:35)
[2025-07-04] MEDS: PROTONIX 40 MG PO (07:35)
[2025-07-04] MEDS: LIPITOR 80 MG PO (07:35)
[2025-07-04] MEDS: COREG 6.25 MG PO ×2 (07:35→20:28)
[2025-07-04] MEDS: VENTOLIN NEBULES 2.5 MG INH ×3 (07:35→19:47)
[2025-07-04] MEDS: ZOLOFT 50 MG PO ×2 (07:38→20:28)
--- NOTE | 2025-07-04 08:32 | W.PN.HOSP.TC ---
Today's Communication/Plan
-
HD as per Nephro
dc abx, monitor off
Assessment / Plan
Assessment / Plan
Physical Exam
General: No acute distress, appears comfortable at this time
HEENT: NormoCephalic, Moist mucous membranes, Atraumatic PERRLA EOMI
Respiratory: Clear and Crackles; No Wheezes, Rales or Rhonchi
Cardiac: S1/S2, Regular Rhythm and JVD; No Murmur, Rub or Peripheral Edema
GI: Soft, Non Tender, Non Distended and Normal Bowel Sounds; No Organomegaly
Musculoskeletal: No Clubbing, No Cyanosis and No Edema
Skin: No Rash
Neuro: AO x 3 conversant coherent no asterixis
Psych: Calm flat affect denies depression though appears listless
84M with complex past medical history including ischemic cardiomyopathy HFrEF 40%, pAfib, ESRD HD, type 2 diabetes, HTN presented following missed dialysis session with respiratory symptoms, nonproductive cough, congestion, headaches, and fatigue.
Found to have Hyperkalemia to 7.0 with bigeminy on ECG. Chest x-ray showed increased bilateral pleural effusion compared to prior. Afebrile stable respirator status room air.
PLAN:
Hyperkalemia -ESRD on HD missed dialysis session, K high 7.0, bigeminy on ECG
- Tele admit
- Temporizing measures in ED with calcium gluconate, sodium bicarb, insulin/dextrose and Lokelma
- K trended down
- nephrology consult appreciated HD performed
Cough/congestion - likely d/t fluid overload from missed dialysis sesssion
- duonebs RTC and prn
- dc empiric abx ceftriaxone doxycycline, monitor off
- sputum culture
- monitor fever profile
Congestive heart failure -dyspnea with mild hypoxia satting around 90% on room air. Suspect mild volume overload. Hypertensive but hemodynamically stable. Slight increase in pleural effusion
- Lasix 80 mg IV bid while inpatient, on oral lasix 80 bid at home
- HD as per nephro
- Continue Coreg 6.25 twice daily
- Sublingual nitroglycerin as needed chest pain
Paroxysmal atrial fibrillation
- continue coreg
- continue eliquis (renally dosed d/t age >80 Cr>1.5)
Anemia -. ACD.
- H&H stable
- monitor for now
- iron/ROB per HD
DVT PPX - on apixaban
Code status - DNR
I spent a total of 45 minutes with the patient or on the floor. More than 50% of this time involved counseling and coordination of care.
Anticipated Discharge: 24 - 48 hours
Subjective/Interval History
-
Date of Service: July 04, 2025
No acute distress, resting comfortably in bed, overall reports feeling well. Denies new acute issues at this time. Cough improved.
Objective Data
-
Labs:
Laboratory Results
07/04/25 07/04/25 07/04/25
01:37 02:51 05:17
WBC 6.6 6.1
Hgb 8.7 L 8.0 L
Hct 27.7 L 24.9 L
Plt Count 120 L 112 L
Sodium 140 142
Potassium 7.0 H* 6.8 H* 5.9 H
Chloride 107 108 H
Carbon Dioxide 19 L 17 L
BUN 136 H* 136 H*
Creatinine 10.0 H* 9.8 H*
Glucose 112 H 75
Calcium 8.9 8.6
Total Bilirubin 0.9
AST 27
ALT 33
Alkaline Phosphatase 79
Vital Signs:
Vital Signs
Temp Pulse Resp BP Pulse Ox
98.5 F 96 30 157/82 99
07/04/25 06:14 07/04/25 07:01 07/04/25 06:15 07/04/25 07:01 07/04/25 07:01
[2025-07-04 09:29] LABS: Glucose - Point of Care 165 mg/dl (70-99)
--- NOTE | 2025-07-04 09:50 | W.CON.NEPH ---
Consultation
-
Date/Time Consultation Requested: June 24, 2025 1 AM
Date/Time Consultation Performed: June 24, 2025 9 AM
Requesting Provider: Adonay Abrams
Performing Provider: Dr. Horn
Reason for Consultation: ESRD
Medical History
-
Chief Complaint: ESRD and hyperkalemia
History of Present Illness:
The patient is an 84-year-old male presents with cough weakness and missed dialysis on Friday. He has baseline uncontrolled hypertension due to his noncompliance with dialysis modality. He receives ROB therapy on dialysis for his anemia of
chronic kidney disease and is chronically anticoagulated for paroxysmal A-fib. His past medical history also includes CAD status post PCI to the RCA. He is also status post CABG in 2016, CVA
Renal consultation end-stage renal disease
Chest x-ray independently reviewed no signs of pulmonary edema or infiltrate
He was seen in the emergency room comfortable no chest pain or shortness of breath no nausea or vomiting
Consistently misses dialysis treatments as outpatient records have been reviewed
His estimated dry weight is 77 kg. He is on room air
Presents with a potassium of 6.8 no significant azotemia with BUN of 140
Past Medical History
Status post RCA stent on 11/26/23
ESRD TTS [facility] in [place]
Diarrhea chronic
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
Hypertension
Atrial fibrillation
BPH
Anemia of CKD
CAD/CABG 2016
Cerebrovascular disease
TIA 2002
History ESBL Klebsiella pneumoniae UTI
Gout
Medical noncompliance (allows only two 3-hour HD treatments weekly)
Past Surgical History: Other (Stent March 2017, drug-eluting stent, multiple stents and PCI 2 stents to circumflex and PDA on 05/26/2008, 07/31/2011 CABG x 3 vessel GALVEZ to LAD, vein graft OM [address] Wilkes 05/19/2017 AV fistula
11/03/2020, left arm fistulogram 01/05/2021, 04/13/2021 Stenting left upper extremity brachi)
Social History
Tobacco: Former Smoker
Alcohol: None
Family History
no ckd
Family History: Not Pertinent
Allergies / Home Medications
Allergy/AdvReac Type Severity Reaction Status Date / Time
No Known Allergies Allergy Verified 05/28/25 03:54
�Medication �Instructions �Recorded �Confirmed �Type
apixaban 2.5 mg tablet (Eliquis) 2.5 mg PO BID blood thinner #60 05/12/21 07/04/25 Rx
tabs
atorvastatin 80 mg tablet 80 mg PO DAILY High cholesterol 01/03/22 07/04/25 History
tamsulosin 0.4 mg capsule 0.4 mg PO BID Urinary issue 02/08/22 07/04/25 History
amlodipine 5 mg tablet 5 mg PO DAILY Blood pressure #30 12/16/23 07/04/25 Rx
tabs
furosemide 80 mg tablet 80 mg PO BID Fluid 01/06/24 07/04/25 History
Retention/Swelling
losartan 25 mg tablet 25 mg PO DAILY Blood Pressure 01/06/24 07/04/25 History
carvedilol 6.25 mg tablet (Coreg) 6.25 mg PO BID #90 tabs 01/09/24 07/04/25 Rx
mirtazapine 7.5 mg tablet 7.5 mg PO HS Mental Health/Anxiety 04/12/25 07/04/25 History
sertraline 50 mg tablet 50 mg PO BID Depression 04/12/25 07/04/25 History
calcium acetate 668 mg (169 mg 1,336 mg PO AC hyperphosphatemia 07/04/25 07/04/25 History
calcium) tablet
therapeutic multivitamin 1 tab PO DAILY Supplement 07/04/25 07/04/25 History
Review of Systems
-
No chest pain or shortness of breath. Mild cough overall weakness
All other systems: Negative unless noted
Physical Exam
Vital Signs
Vital Signs
Temp Pulse Resp BP Pulse Ox
98.5 F 96 30 157/82 99
07/04/25 06:14 07/04/25 07:01 07/04/25 06:15 07/04/25 07:01 07/04/25 07:01
Lab Results
WBC 6.1 10^3/uL (4.8-10.8) 07/04/25 05:17
RBC 2.65 10^6/uL (4.70-6.10) L 07/04/25 05:17
Hgb 8.0 g/dL (13.0-18.0) L 07/04/25 05:17
Hct 24.9 % (39.0-52.0) L 07/04/25 05:17
Plt Count 112 10^3/uL (130-400) L 07/04/25 05:17
Sodium 142 mmol/L (135-145) 07/04/25 05:17
Potassium 5.9 mmol/L (3.5-5.1) H 07/04/25 05:17
Chloride 108 mmol/L (98-107) H 07/04/25 05:17
Carbon Dioxide 17 mmol/L (22-30) L 07/04/25 05:17
BUN 136 mg/dl (9-20) H* 07/04/25 05:17
Creatinine 9.8 mg/dL (0.7-1.3) H* 07/04/25 05:17
eGFR 4.77 07/04/25 05:17
Glucose 75 mg/dl (70-99) 07/04/25 05:17
Calcium 8.6 mg/dl (8.4-10.2) 07/04/25 05:17
Xyn-R-Khvbeqxjibr Pept > 06096 pg/ml 07/04/25 01:37
Albumin 4.4 g/dl (3.5-5.0) 07/04/25 01:37
Physical Exam
General no acute distress
HEENT no cephalic atraumatic extraocular muscle intact no scleral icterus no JVD neck supple
lungs clear to auscultation bilateral
heart regular S1-S2 positive
abdomen soft nontender positive bowel sounds
extremities no edema pulses present bilateral
Neurologically nonfocal alert and oriented x 3
Skin no lesions no abrasions no petechiae
Psych normal affect no bizarre behavior
Data Reviewed
-
Radiology: Image Personally Visualized and interpreted
Labs: Labs Reviewed by me and Discussed with Patient
Assessment/Plan
-
Impression:
ESRD TTS) [facility] in [place]
Benign HTN
AV fistula last fistulogram 02/2025
BPH
Anemia of chronic disease/ESRD
CAD/HI/CABG s/p stent 11/2023
RBBB
Paroxysmal A-fib
Cardiac murmur
Bradycardia due to labetalol
Chronic diastolic CHF
HLD
Depression
Gout
Medical noncompliance (allows only two 3-hour HD treatments weekly)
Chronic dizziness
Chronic watery brown diarrhea x 1 month-unclear etiology
Plan:
Dialysis ordered today
2 potassium bath
Estimated dry weight goal 77 kg
Epogen for hemoglobin of 8
Discussed with dialysis nurse
Patient agrees to dialysis today
We will dialyze again tomorrow as well
--- NOTE | 2025-07-04 11:39 | CM ---
CM reviewed chart and met with pt bedside in ED. Lives alone, 2 story home, no KEITH, has first floor BA, second floor BR.
Independent in ADLs, personal care and ambulation at baseline. Has walkers but does not use them.
Receives HD Friday and Friday, per pt he will be increasing to 3 days a week //Fri. Pt drives himself to HD, does not have a plan if he cannot drive himself.
Confirms prescription coverage.
Hemodialysis at [facility] [phone], fax [phone]
PCP: Jose Tamez
Pharmacy: [facility]
Hx VN, no hx SNF.
--- NOTE | 2025-07-04 14:28 | W.PN.NEPH.HD ---
Progress Note - Hemodialysis
-
Date of Service: July 04, 2025
Duration: 30 minutes and 3 hours
Potassium Bath: 2
Calcium Bath: 2.5
Opti-Dialyzer: 160
Ultrafiltration: Other (4kg)
Blood Flow: 400
Dialysate Flow: 600
Heparin: 0
EPO: 83348 units
[2025-07-04] MEDS: VENTOLIN NEBULES INH (14:54)
[2025-07-04] MEDS: RETACRIT 10000 UNITS IV (15:57)
[2025-07-04] MEDS: REMERON 7.5 MG PO (22:20)
[2025-07-05 03:34] VITALS: BP 121/50
[2025-07-05 06:00] VITALS: BMI 25.7
--- NOTE | 2025-07-05 06:28 | PTCARENOTE ---
07/05: 0630: Patient had no urine output on overnight shift. Patient was due for urine culture. Patient was bladder scanned due to 0 mL void. Bladder scan result: 684 mL. Nursing explained to patient straight catheterization, reason for procedure,
and repercussions of not completing the straight catheterization procedure. Patient refused. Patient education continued to be provided. Patient said 'No, no. Give me lasix.' Nursing explained patient has right to refuse and nursing will take note.
ESTHETICIAN AND [employer]GER [employer] notified.
[2025-07-05 07:00] VITALS: BP 135/64
[2025-07-05] MEDS: VENTOLIN NEBULES INH ×2 (07:27→15:36)
[2025-07-05 08:28] LABS: Hematocrit 24.4 % (39.0-52.0); Hemoglobin 7.9 g/dL (13.0-18.0); Mean Corp Hgb Conc. 32.4 g/dL (33.0-37.0); Mean Corpuscular Volume 93.8 fL (80.0-94.0); Platelet Count 106 10^3/uL (130-400); Red Cell Dist. Width 16.6 % (11.5-14.5)
--- NOTE | 2025-07-05 08:58 | W.PN.HOSP.TC ---
Today's Communication/Plan
-
HD as per Nephro
PT/OT
discharge planning
Assessment / Plan
Assessment / Plan
Physical Exam
General: No acute distress, appears comfortable at this time
HEENT: NormoCephalic, Moist mucous membranes, Atraumatic PERRLA EOMI
Respiratory: Clear and Crackles; No Wheezes, Rales or Rhonchi
Cardiac: S1/S2, Regular Rhythm and JVD; No Murmur, Rub or Peripheral Edema
GI: Soft, Non Tender, Non Distended and Normal Bowel Sounds; No Organomegaly
Musculoskeletal: No Clubbing, No Cyanosis and No Edema
Skin: No Rash
Neuro: AO x 3 conversant coherent no asterixis
Psych: Calm flat affect denies depression though appears listless
84M with complex past medical history including ischemic cardiomyopathy HFrEF 40%, pAfib, ESRD HD, type 2 diabetes, HTN presented following missed dialysis session with respiratory symptoms, nonproductive cough, congestion, headaches, and fatigue.
Found to have Hyperkalemia to 7.0 with bigeminy on ECG. Chest x-ray showed increased bilateral pleural effusion compared to prior. Afebrile stable respirator status room air.
PLAN:
Hyperkalemia -ESRD on HD missed dialysis session, K high 7.0, bigeminy on ECG
- Tele admit
- Temporizing measures in ED with calcium gluconate, sodium bicarb, insulin/dextrose and Lokelma
- K trended down
- nephrology consult appreciated
- cont HD as per nephro
Cough/congestion - likely d/t fluid overload from missed dialysis session
- duonebs RTC and prn
- dc empiric abx ceftriaxone doxycycline, monitor off
- sputum culture
- monitor fever profile
Congestive heart failure -dyspnea with mild hypoxia satting around 90% on room air. Suspect mild volume overload. Hypertensive but hemodynamically stable. Slight increase in pleural effusion
- Lasix 80 mg IV bid while inpatient, on oral lasix 80 bid at home
- HD as per nephro
- Continue Coreg 6.25 twice daily
- Sublingual nitroglycerin as needed chest pain
Paroxysmal atrial fibrillation
- continue coreg
- continue eliquis (renally dosed d/t age >80 Cr>1.5)
Anemia -. ACD.
- H&H stable
- monitor for now
- iron/ROB per HD
PT/OT eval pending
DVT PPX - on apixaban
Code status - DNR
I spent a total of 45 minutes with the patient or on the floor. More than 50% of this time involved counseling and coordination of care.
Anticipated Discharge: Within 24 hours
Subjective/Interval History
-
Date of Service: July 05, 2025
no acute distress, resting comfortably in bed. Endorses fatigue.
Objective Data
-
Labs:
Laboratory Results
07/05/25
07:48
WBC 4.4 L
Hgb 7.9 L
Hct 24.4 L
Plt Count 106 L
Sodium Pending
Potassium Pending
Chloride Pending
Carbon Dioxide Pending
BUN Pending
Creatinine Pending
Glucose Pending
Calcium Pending
Vital Signs:
Vital Signs
Temp Pulse Resp BP Pulse Ox
97.7 F 70 18 135/64 96
07/05/25 07:00 07/05/25 07:00 07/05/25 07:00 07/05/25 07:00 07/05/25 07:00
I&O
07/04/25 07/05/25 07/06/25
06:59 06:59 06:59
Intake Total 480 / 480
Balance 480 / 480
[2025-07-05 09:04] LABS: Blood Urea Nitrogen 67 mg/dl (9-20); Calcium 8.3 mg/dl (8.4-10.2); Carbon Dioxide 23 mmol/L (22-30); Chloride 99 mmol/L (98-107); Estimated Creatinine Clearance 8 ml/min; Glucose 157 mg/dl (70-99); Magnesium 1.9 mg/dl (1.6-2.3); Potassium 4.8 mmol/L (3.5-5.1); Sodium 137 mmol/L (135-145); eGFR 7.80
[2025-07-05] MEDS: MANNITOL 25% 12.5 GRAMS IV (09:09)
[2025-07-05] MEDS: LASIX 80 MG IV ×2 (10:17→16:48)
[2025-07-05] MEDS: FLOMAX 0.4 MG PO ×2 (10:21→21:50)
[2025-07-05 11:00] VITALS: BP 146/66
[2025-07-05] MEDS: VENTOLIN NEBULES 2.5 MG INH ×2 (11:45→19:51)
[2025-07-05] MEDS: LIPITOR 80 MG PO (12:18)
[2025-07-05] MEDS: PROTONIX 40 MG PO (12:18)
[2025-07-05] MEDS: COREG 6.25 MG PO ×2 (12:19→21:50)
[2025-07-05] MEDS: NORVASC 5 MG PO (12:19)
[2025-07-05] MEDS: ZOLOFT 50 MG PO ×2 (12:20→21:50)
[2025-07-05] MEDS: ELIQUIS 2.5 MG PO ×2 (12:21→21:49)
--- NOTE | 2025-07-05 13:50 | W.PN.NEPH.HD ---
Assessment
-
Seen on dialysis tolerating would be okay with discharge postdialysis
Progress Note - Hemodialysis
-
Date of Service: July 05, 2025
Duration: 30 minutes and 3 hours
Potassium Bath: 2
Calcium Bath: 2.5
Opti-Dialyzer: 160
Ultrafiltration: Other (4kg)
Blood Flow: 400
Dialysate Flow: 600
Heparin: 0
EPO: 60600 units
[2025-07-05 15:00] VITALS: BP 124/45
[2025-07-05 18:56] LABS: Urine Character Cloudy (Clear)
[2025-07-05 19:03] LABS: Urine Squamous Cell 0-2 /LPF (Few)
[2025-07-05 19:04] LABS: Urine White Cell >100 /HPF (0-5)
[2025-07-05 19:25] VITALS: BP 131/52
[2025-07-05] MEDS: REMERON 7.5 MG PO (21:50)
[2025-07-05 23:41] VITALS: BP 139/48
--- NOTE | 2025-07-06 02:46 | DOWNTIME ---
There was a [employer] Downtime on 07/06/2025 from 0100 to 07/06/2025 at 0235. Downtime documentation of patient's care, including medication administrations, has been reconciled in the electronic record per guidelines. Refer to the
patient's paper chart under the miscellaneous tab to see printed paper medication records and downtime forms.
[2025-07-06 03:40] VITALS: BP 132/56
[2025-07-06 05:18] VITALS: BMI 25.3
[2025-07-06 07:00] VITALS: BP 150/62
--- NOTE | 2025-07-06 07:57 | W.PN.HOSP.TC ---
Addendum entered and electronically signed by Georgia Verduzco MD 07/11/25 06:56:
Acute on chronic HFrEF 2/2 missed HD
resolved with HD here
Addendum entered and electronically signed by Georgia Verduzco MD 07/11/25 06:54:
pancytopenia
Original Note:
Today's Communication/Plan
-
Discharge
Assessment / Plan
Assessment / Plan
Physical Exam
General: No acute distress, appears comfortable at this time
HEENT: NormoCephalic, Moist mucous membranes, Atraumatic PERRLA EOMI
Respiratory: Clear and Crackles; No Wheezes, Rales or Rhonchi
Cardiac: S1/S2, Regular Rhythm and JVD; No Murmur, Rub or Peripheral Edema
GI: Soft, Non Tender, Non Distended and Normal Bowel Sounds; No Organomegaly
Musculoskeletal: No Clubbing, No Cyanosis and No Edema
Skin: No Rash
Neuro: AO x 3 conversant coherent no asterixis
Psych: Calm flat affect denies depression though appears listless
84M with complex past medical history including ischemic cardiomyopathy HFrEF 40%, pAfib, ESRD HD, type 2 diabetes, HTN presented following missed dialysis session with respiratory symptoms, nonproductive cough, congestion, headaches, and fatigue.
Found to have Hyperkalemia to 7.0 with bigeminy on ECG. Chest x-ray showed increased bilateral pleural effusion compared to prior. Afebrile stable respirator status room air.
PLAN:
Hyperkalemia -ESRD on HD missed dialysis session, K high 7.0, bigeminy on ECG
- Tele admit
- Temporizing measures in ED with calcium gluconate, sodium bicarb, insulin/dextrose and Lokelma
- K trended down
- received back to back HD x2 as per nephro
- nephrology consult appreciated cleared for discharge
Cough/congestion - likely d/t fluid overload from missed dialysis session
- duonebs RTC and prn
- dc empiric abx ceftriaxone doxycycline, monitor off
- sputum culture
- symptomatically improved
Congestive heart failure -dyspnea with mild hypoxia satting around 90% on room air. Suspect mild volume overload. Hypertensive but hemodynamically stable. Slight increase in pleural effusion
- Lasix 80 mg IV bid switched back to home PO Lasix
- HD as per nephro
- Continue Coreg 6.25 twice daily
- Sublingual nitroglycerin as needed chest pain
Paroxysmal atrial fibrillation
- continue coreg
- continue eliquis (renally dosed d/t age >80 Cr>1.5)
Anemia -. ACD.
- H&H stable
- iron/ROB per HD
PT/OT eval appreciated SNF vs HH pt prefers HH
DVT PPX - on apixaban
Code status - DNR
Medically stable for discharge home with home services and outpatient follow up recommendations.
Total Time Preparing Discharge ___40____ minutes including examination of the patient, summary of the hospital stay, instructions for continuing care to all relevant caregivers; and preparation of discharge records, prescriptions, and referral
forms if necessary.
Anticipated Discharge: Today
Subjective/Interval History
-
Date of Service: July 06, 2025
Seen and examined at bedside in no acute distress. Overall Reports feeling well. Denies new acute issues at this time.
Objective Data
-
Vital Signs:
Vital Signs
Temp Pulse Resp BP Pulse Ox
98.3 F 69 16 132/56 94
07/06/25 03:40 07/06/25 03:40 07/06/25 03:40 07/06/25 03:40 07/06/25 03:40
I&O
07/05/25 07/06/25 07/07/25
06:59 06:59 06:59
Intake Total 480 / 480 240 / 240
Balance 480 / 480 240 / 240
[2025-07-06] MEDS: VENTOLIN NEBULES 2.5 MG INH (08:16)
[2025-07-06] MEDS: NORVASC 5 MG PO (08:37)
[2025-07-06] MEDS: THERAGRAN 1 TABLET PO (08:37)
[2025-07-06] MEDS: COREG 6.25 MG PO (08:37)
[2025-07-06] MEDS: FLOMAX 0.4 MG PO (08:37)
[2025-07-06] MEDS: ELIQUIS 2.5 MG PO (08:37)
[2025-07-06] MEDS: LIPITOR 80 MG PO (08:37)
[2025-07-06] MEDS: ZOLOFT 50 MG PO (08:38)
[2025-07-06] MEDS: PROTONIX 40 MG PO (08:38)
[2025-07-06] MEDS: LASIX 80 MG PO (08:38)
[2025-07-06] MEDS: COZAAR 25 MG PO (08:38)
[2025-07-06] MEDS: PHOSLO 1334 MG PO ×3 (08:38→16:19)
[2025-07-06 09:09] VITALS: BP 162/83
[2025-07-06 09:24] VITALS: BP 124/74
[2025-07-06 11:00] VITALS: BP 136/57
[2025-07-06] MEDS: VENTOLIN NEBULES INH (11:26)
--- NOTE | 2025-07-06 11:59 | CM ---
CM reviewed chart, patient seen bedside, discussed therapy recommendation of home health, patient agreeable, reports he has worked with [facility] in past. IMM verbally reviewed with patient, provided with copy, placed in chart. Patient reports his
daughter will provide transport home upon d.c. CM will continue to follow for all discharge planning needs.
Plan; home, referral to [facility]
at [facility] [phone], fax [phone]
--- NOTE | 2025-07-06 14:16 | PN.CDI ---
CDI
- -
CDI:
Physician Documentation Request
Admit Date: 07/04/25 04:26
Dear Doctor Dax,
Clinical Indicators:
Patient admitted with cough/congestion after missed HD session.
06/18/2025 Echo Report, 'Left ventricular ejection fraction is 40% visually.'
07/05 PN 'Congestive heart failure -dyspnea with mild hypoxia satting around 90% on room air. Suspect some mild volume overload with chronically elevated BNP and slight jugular vein enlargement.
Please provide further specificity regarding the most likely acuity of CHF you are evaluating, treating or monitoring.
Acute on chronic HFrEF
Other, please specify
Use of terms such as suspected, likely, concern for, or probable (associated with a specific diagnosis that is being evaluated, monitored, or treated as if it exists) are acceptable and can be coded in the inpatient setting, when documented at the
time of discharge.
Thank you,
AFTAB Canesco RN
CDI Specialist
available via tiger text
Please use your independent medical judgment in providing your response.
--- NOTE | 2025-07-06 14:22 | PN.CDI ---
CDI
- -
CDI:
Physician Documentation Request
Admit Date: 07/04/25 04:26
Dear Doctor Dax,
Clinical Indicators:
Patient admitted with cough/congestion after missed HD session.
WBC, RBC, Plts:
07/05/25
07:48
WBC 4.4 L
RBC 2.60 L
Hgb 7.9 L
Plt Count 106 L
Based on the above, could you clarify in the progress notes, the appropriate diagnosis, if significant, that supports the above abnormalities and additional evaluation, monitoring and/or treatment rendered:
Pancytopenia
Abnormal lab values clinically insignificant
Other, please specify
Use of terms such as suspected, likely, concern for, or probable (associated with a specific diagnosis that is being evaluated, monitored, or treated as if it exists) are acceptable and can be coded in the inpatient setting, when documented at the
time of discharge.
Thank you,
AFTAB Canseco RN
CDI Specialist
available via tiger text
Please use your independent medical judgment in providing your response.
--- NOTE | 2025-07-06 14:22 | W.PN.NEPH.PH ---
Today's Communication / Plan
-
Dialysis tomorrow if patient is still here in the hospital
Assessment/Plan
-
Impression:
ESRD TTS) [facility] in [place]
Benign HTN
AV fistula last fistulogram 02/2025
BPH
Anemia of chronic disease/ESRD
CAD/AK/CABG s/p stent 11/2023
RBBB
Paroxysmal A-fib
Cardiac murmur
Bradycardia due to labetalol
Chronic diastolic CHF
HLD
Depression
Gout
Medical noncompliance (allows only two 3-hour HD treatments weekly)
Chronic dizziness
Chronic watery brown diarrhea x 1 month-unclear etiology
Plan:
Dialysis ordered for tomorrow if patient is not discharged today
Anemia persists, will escalate erythropoietin on dialysis
2 potassium bath
Estimated dry weight goal 77 kg
-
-
Date of Service: July 06, 2025
CC / HPI / ROS
-
Chief Complaint:
ESRD
History of Present Illness:
ESRD Friday but only goes to dialysis once or twice a week
Hemodynamically stable
Review of Systems:
No current chest pain or shortness of breath
Weight down to 77.7
Labs
-
Labs:
WBC 4.4 10^3/uL (4.8-10.8) L 07/05/25 07:48
RBC 2.60 10^6/uL (4.70-6.10) L 07/05/25 07:48
Hgb 7.9 g/dL (13.0-18.0) L 07/05/25 07:48
Hct 24.4 % (39.0-52.0) L 07/05/25 07:48
Plt Count 106 10^3/uL (130-400) L 07/05/25 07:48
Sodium 137 mmol/L (135-145) 07/05/25 07:48
Potassium 4.8 mmol/L (3.5-5.1) 07/05/25 07:48
Chloride 99 mmol/L (98-107) 07/05/25 07:48
Carbon Dioxide 23 mmol/L (22-30) 07/05/25 07:48
BUN 67 mg/dl (9-20) H 07/05/25 07:48
Creatinine 6.5 mg/dL (0.7-1.3) H* 07/05/25 07:48
eGFR 7.80 07/05/25 07:48
Glucose 157 mg/dl (70-99) H 07/05/25 07:48
Calcium 8.3 mg/dl (8.4-10.2) L 07/05/25 07:48
Phosphorus 5.7 mg/dl (2.5-4.5) H 07/05/25 07:48
Gkl-J-Korgocngwha Pept > 56291 pg/ml 07/04/25 01:37
Albumin 4.4 g/dl (3.5-5.0) 07/04/25 01:37
Physical Exam
-
Vital Signs:
Vital Signs
Temp Pulse Resp BP Pulse Ox
98.3 F 67 18 136/57 97
07/06/25 11:00 07/06/25 11:00 07/06/25 11:00 07/06/25 11:00 07/06/25 11:00
Cardiovascular:: Regular rate and rhythm
Respiratory:: Bilateral: Coarse
Lung Excursion:: Normal
Abdomen:: Nontender and Soft
Bowel Sounds:: Normal
Extremity Edema:: None: Bilateral:
Escobar Catheter: No
[2025-07-06 15:00] VITALS: BP 140/58
--- NOTE | 2025-07-06 16:07 | W.DCSUMMARY ---
Discharge Summary
Discharge Data
Date of Admission: 07/04/25
Date of Discharge: 07/06/25
-
Pending Results: Yes (urine culture results)
Hospital Course
84M with complex past medical history including ischemic cardiomyopathy HFrEF 40%, pAfib, ESRD HD, type 2 diabetes, HTN presented following missed dialysis session with respiratory symptoms, nonproductive cough, congestion, headaches, and fatigue.
Found to have Hyperkalemia to 7.0 with bigeminy on ECG. Chest x-ray showed increased bilateral pleural effusion compared to prior. Afebrile stable respirator status room air. Hyperkalemia likely d/t missed dialysis session, K high 7.0, bigeminy
on ECG. Tele admit. Temporizing measures given in ED with calcium gluconate, sodium bicarb, insulin/dextrose and Lokelma. K trended down. Received back to back HD x2 as per nephro. Nephrology consult appreciated cleared for discharge by
hospital day 3. Cough/congestion - likely d/t fluid overload from missed dialysis session. Treated with duonebs RTC and prn, eventually weaned to just PRN. DC empiric abx ceftriaxone doxycycline, monitor off. Patient since symptomatically
improved. PT/OT eval appreciated SNF vs (patient preferred ). Medically stable, patient was discharged home with home services and outpatient follow up recommendations.
Discharge Plan
-
Patient Disposition: Home with Home Care
Discharge Diagnosis/Procedures: Hyperkalemia, cough/congestion, fluid overload, likely due to missed dialysis sessions
End stage renal disease
paroxysmal atrial fibrillation
Anemia of chronic disease
Coronary Artery Disease
Congestive Heart Failure
Condition: Fair
Diet: 2 Gram Sodium
Additional Diets: 2 gram Potassium restricted diet, 40 oz fluid restriction
Activity: As tolerated
Driving Restrictions: As prior to admission
Bathing Restrictions: None
Other Services: PT and OT
Activity Restrictions/Additional Instructions:
Follow up with primary care provider in 1 week of discharge. Follow up with your Dialysis Center for your next Dialysis session.
Compliance with your scheduled dialysis sessions is strongly encouraged/recommended.
Referrals:
UNKNOWN - PT DOES,NOT KNOW [Family Provider]
Prescriptions:
Continued
Eliquis 2.5 MG tablet
2.5 mg PO BID Qty: 60 0RF
atorvastatin 80 MG tablet
80 mg PO DAILY
tamsulosin 0.4 MG capsule
0.4 mg PO BID
amlodipine 5 mg tablet
5 mg PO DAILY Qty: 30 11RF
furosemide 80 mg Tablet
80 mg PO BID
losartan 25 mg Tablet
25 mg PO DAILY
carvedilol [Coreg] 6.25 mg tablet
6.25 mg PO BID Qty: 90 3RF
sertraline 50 mg Tablet
50 mg PO BID
mirtazapine 7.5 mg Tablet
7.5 mg PO HS
therapeutic multivitamin Tablet
1 tab PO DAILY
calcium acetate 668 mg (169 mg calcium) Tablet
1,336 mg PO AC
Discharge Orders:
Discharge Patient (As Directed); Ordered 07/06/25
Ordered By: Georgia Verduzco
Discharge Date and Time
Discharge Date/Time: 07/06/25 18:05
Print Language: ROMANIAN
== END 2025-07-06 18:05 | disposition home health service (06) | DRG 640 ==
LOC: 4 WEST ACU 04:26
PROVIDERS: ADMITTING PHYSICIAN Internal Medicine; ATTENDING PHYSICIAN Internal Medicine; EMERGENCY PHYSICIAN Emergency Medicine; OTHER PHYSICIAN Internal Medicine Nephrology
PROC: 5A1D70Z Performance of Urinary Filtration, Intermittent, Less than 6 Hours Per Day (ICD-10-PCS; 2025-07-04)
DX: E87.5 Hyperkalemia (principal); I50.23 Acute on chronic systolic (congestive) heart failure; J18.9 Pneumonia, unspecified organism; N18.6 End stage renal disease; I13.2 Hypertensive heart and chronic kidney disease with heart failure and with stage 5 chronic kidney disease, or end stage renal disease; I69.354 Hemiplegia and hemiparesis following cerebral infarction affecting left non-dominant side; D61.818 Other pancytopenia; E11.22 Type 2 diabetes mellitus with diabetic chronic kidney disease; I48.0 Paroxysmal atrial fibrillation; E11.36 Type 2 diabetes mellitus with diabetic cataract; I45.10 Unspecified right bundle-branch block; I49.3 Ventricular premature depolarization; E78.00 Pure hypercholesterolemia, unspecified; F32.A Depression, unspecified; I25.10 Atherosclerotic heart disease of native coronary artery without angina pectoris; R09.02 Hypoxemia; M10.9 Gout, unspecified; D63.1 Anemia in chronic kidney disease; N40.0 Benign prostatic hyperplasia without lower urinary tract symptoms; E11.51 Type 2 diabetes mellitus with diabetic peripheral angiopathy without gangrene; I25.5 Ischemic cardiomyopathy; Z66 Do not resuscitate; Z60.8 Other problems related to social environment; Z60.2 Problems related to living alone; Z99.2 Dependence on renal dialysis; Z79.01 Long term (current) use of anticoagulants; Z95.1 Presence of aortocoronary bypass graft; I25.2 Old myocardial infarction; Z87.891 Personal history of nicotine dependence; Z95.5 Presence of coronary angioplasty implant and graft; Z87.19 Personal history of other diseases of the digestive system; Z79.4 Long term (current) use of insulin; Z11.52 Encounter for screening for COVID-19; Z91.158 Patient's noncompliance with renal dialysis for other reason; Z82.3 Family history of stroke; Z82.49 Family history of ischemic heart disease and other diseases of the circulatory system; Z80.52 Family history of malignant neoplasm of bladder; Z81.8 Family history of other mental and behavioral disorders; Z86.718 Personal history of other venous thrombosis and embolism
CPT/HCPCS: 71046; 80048; 80053; 81003; 81015; 82962; 83605; 83735; 83880; 84100; 84132; 84484; 85025; 85027; 87040; 87070; 87086; 87147; 87186; 87811; 93005; 94640; 96374; 96375; 97162; 97167; 99285; G0257; J2916; Q5106

== ENCOUNTER 2025-07-25 01:48 | Inpatient (IN) | payer MEDICARE, SELFPAY ==
[2025-07-24 21:36] VITALS: BP 149/79
[2025-07-24 21:46] VITALS: BMI 27.0
[2025-07-24 21:57] LABS: Hematocrit 30.3 % (39.0-52.0); Hemoglobin 9.7 g/dL (13.0-18.0); Mean Corp Hgb Conc. 32.0 g/dL (33.0-37.0); Mean Corpuscular Volume 96.8 fL (80.0-94.0); Platelet Count 103 10^3/uL (130-400); Red Cell Dist. Width 17.9 % (11.5-14.5)
[2025-07-24 22:00] VITALS: BP 132/77
[2025-07-24 22:12] LABS: ALT (SGPT) 20 U/L (0-50); AST (SGOT) 19 U/L (17-59); Albumin 4.5 g/dl (3.5-5.0); Alkaline Phosphatase 86 U/L (38-126); Calcium 9.0 mg/dl (8.4-10.2); Carbon Dioxide 15 mmol/L (22-30); Chloride 104 mmol/L (98-107); Estimated Creatinine Clearance 5 ml/min; Glucose 129 mg/dl (70-99); Potassium 6.1 mmol/L (3.5-5.1); Sodium 140 mmol/L (135-145); Total Protein 6.8 g/dl (6.3-8.2); eGFR 4.49
[2025-07-24 22:16] LABS: Normal RBC Morphology No; Ovalocytes 1+; Platelets Checked Yes
[2025-07-24 22:17] LABS: Anisocytosis 1+; Poikilocytosis 1+; Total Cells Counted 100
[2025-07-24 22:22] LABS: Blood Urea Nitrogen 126 mg/dl (9-20); Troponin I 0.035 ng/ml
--- NOTE | 2025-07-24 22:40 | ED.GENMED ---
History of Present Illness
General
Chief Complaint: Weakness
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 Similarly missing dialysis sessions.)
Exam Limitations: none
Time Seen by Provider: 07/24/25 21:58
Nursing documentation reviewed up to this point in time: agreed with
History of Present Illness
History of Present Illness:
This is an 84-year-old gentleman who resides at home alone, independently. He has history of end-stage renal disease, dialysis dependent, twice weekly. On Tuesdays and Saturdays. He continues to neglect dialysis on . He also has a
history of PAF, on , CAD status post CABG and multiple cardiac interventions, PAD, eyz-bpwjsig-qzluggobh diabetes, multiple lacunar infarcts, hypertension. Recent hospitalizations twice last month for treatment of acute pulmonary edema
related to missed dialysis sessions. He was also noted to have non-NC troponin elevations. Echocardiogram showed EF of 40%, stage II diastolic dysfunction with no change in previous echo since February 2025.
Despite recommending he increase his dialysis to 3 times weekly, he continues with twice weekly dialysis and again missed his most recent dialysis on Friday/yes due to complaints of generalized fatigue, generalized weakness and difficulty
sleeping which began a week ago.
He notes multiple falls over the past several days including twice today. He reports feeling unsteady on his feet having to hold onto things to ambulate. He complains of bilateral shoulder pain but denies striking his head. He denies loss of
consciousness. He denies nausea and or vomiting. Appetite has been good. He denies diarrhea or constipation. He does continue to urinate, denies dysuria and urgency and or hematuria. He has a somewhat chronic dry cough. He notes intermittent
chest pain, chronic in nature, no definitive aggravating or relieving factors. He denies chest pain with activity. He does note some dyspnea on exertion, denies nocturnal dyspnea but has had difficulty sleeping. He denies neck nor back pain. No
leg pain.
Somewhat similar complaints noted during most recent hospitalization July 04 to July 06. However, during that hospitalization he denied recent falls.
Past History
Past History
ED Past Medical History: Arrthythmia (Atrial fib), CAD, CHF, CVA (Left sided weakness slight), HTN, Hypercholesterolemia, NIDDM, NC, Renal failure (Dialysis Friday and Friday) and Other (TIA 2002, Diverticulosis, Anemia, right central retinal
artery occlusion)
ED Past Surgical History: Cardiac (Cardiac stents, LINQ device placement, CABG) and Other (Cataracts, Left arm fistula)
Social History
Tobacco: Former smoker
Alcohol: None
Personal:
Living: alone
Employment: Retired
Family History
Family History: Other (Reviewed and noncontributory)
Phy Exam
Physical Exam
Physical Exam:
GENERAL: 84-year-old gentleman appears his stated age, awake and alert, appears moderately fatigued but easily communicative. Very mild resting tachypnea is noted. Rare brief nonproductive cough is noted. He is afebrile.
EYE: pupils equal and reactive. anicteric. The head is normocephalic, atraumatic.
NECK: Supple, no midline bony tenderness, no meningismus, no significant adenopathy.
ENT: posterior pharynx is clear, oral mucosa is moist. TM clear b/l, nares patent.
CARDIAC: Regular rate and rhythm. Occasional ectopy. No murmur.
LUNGS: Very mild resting tachypnea, bibasilar rales noted.
ABDOMEN: Soft, nondistended, without focal tenderness, no r/g, no cvat. normoactive BS.
NEUROLOGICAL: Alert and oriented x3, no focal neuro deficits. Motor strength is 5/5 bilaterally. Gross sensation is intact.
SKIN: Warm and dry, normal color, skin intact. No rash. AV fistula left upper arm.
MUSCULOSKELETAL: No C/C/E. peripheral pulses are full and equal b/l. Mild tenderness to palpation left shoulder with moderately restricted range of motion left shoulder with mild crepitus with range of motion left shoulder. There is no gross
deformity. No soft tissue swelling nor ecchymosis. No tenderness about the right shoulder, full range of motion with mildly increased pain of right shoulder with abduction greater than 90 degrees. No crepitus. No soft tissue swelling nor
ecchymosis. There is no clavicular tenderness nor chest wall tenderness.
PSYCH: Normal and appropriate interaction.
Course
Orders/Labs/Results
Orders:
Orders
07/24/25 21:47
Electrocardiogram (*1) Urgent
Reason for Study: Chest Pain
Cardiac Monitoring- Treatment ONCE
EKG- Treatment ONCE
IV Insert/Care/Rem.- Treatment PRN
07/24/25 21:49
Complete Blood Count/With Diff Urgent
Comprehensive Metabolic Panel Urgent
Manual Differential Urgent
Troponin I Urgent
07/24/25 22:35
CT Cervical Spine W/o Iv Contr Urgent
Comment:
Reason For Exam: multiple falls, b/l shoulder pain
CT Head W/o Iv Contrast Urgent
Comment:
Reason For Exam: multiple falls, unsteady gait, on eliquis
Shoulder, Left, Trauma CR [CR Shoulder, Trauma - Left] Urgent
Comment:
Reason For Exam: multiple falls, L shoulder pain
Shoulder, Right, Trauma [CR Shoulder, Trauma - Right] Urgent
Comment:
Reason For Exam: fall today, R shoulder pain
07/24/25 22:36
CR Chest - 2 Views Urgent
Comment:
Reason For Exam: SOB, cough, missed dialysis yestrday
07/24/25 22:37
Urinalysis Reflex To Culture Urgent
07/24/25 22:38
Calcium Gluconate 1,000 mg IV NOW STA
Dextrose 50%-Water [Dextrose 50% Syringe] 12.5 grams IV [id number] PRN
Dextrose 50%-Water [Dextrose 50% Syringe] 25 grams IV NOW STA
Furosemide [Lasix] 80 mg IV NOW STA
Insulin Human Regular [Novolin R] 5 units IV NOW STA
Sodium Bicarbonate 50 meq IV NOW STA
Sodium Zirconium Cyclosilicate [Lokelma] 10 gram PO NOW STA
Bedside Glucose PRE IV Insulin- HyperK+ NOW
07/25/25 00:08
Bedside Glucose POST IV Insulin- HyperK+ Q1HX2,Q2HX2
07/25/25 01:12
Potassium Urgent
Comment: draw 2 hours after regular insulin IV administration
Abnormal Lab Results
07/24/25 07/24/25 07/25/25
21:49 22:50 01:09
RBC 3.13 L 10^6/uL
(4.70-6.10)
Hgb 9.7 L g/dL
(13.0-18.0)
Hct 30.3 L %
(39.0-52.0)
MCV 96.8 H fL
(80.0-94.0)
MCHC 32.0 L g/dL
(33.0-37.0)
RDW 17.9 H %
(11.5-14.5)
Plt Count 103 L 10^3/uL
(130-400)
MPV 12.7 H fL
(7.4-10.4)
Lymphocytes (Manual) 11 L %
(20-51)
Monocytes (Manual) 16 H %
(2-9)
Potassium 6.1 H* mmol/L
(3.5-5.1)
Carbon Dioxide 15 L mmol/L
(22-30)
BUN 126 H* mg/dl
(9-20)
Creatinine 10.3 H* mg/dL
(0.7-1.3)
Glucose 129 H mg/dl
(70-99)
Troponin I 0.035 H* ng/ml
POC Glucose 136 H mg/dl 116 H mg/dl
(70-99) (70-99)
07/24/25 21:49
Vital Signs
Initial and Last Documented VS:
Initial Vital Signs
Temp Pulse Resp BP Pulse Ox
97.5 F 88 22 149/79 98
07/24/25 21:36 07/24/25 21:36 07/24/25 21:36 07/24/25 21:36 07/24/25 21:36
Last Documented Vital Signs
Temp Pulse Resp BP Pulse Ox
97.5 F 69 22 148/65 96
07/24/25 21:36 07/25/25 01:00 07/24/25 21:36 07/25/25 01:00 07/25/25 01:00
MDM/Problems Addressed
Differential Diagnosis Includes:
The Differential Diagnosis includes, in no particular order and is not limited to:
- Electrolyte imbalance due to missed dialysis
- Heart failure exacerbation
- Diastolic dysfunction
- Renal failure
- Frequent falls secondary to muscle weakness or electrolyte imbalance
- Sleep apnea or insomnia
- Medication-related side effects
- Infection/pneumonia/UTI/sepsis
- Postural instability or unsteadiness due to weakness
- Psychological factors contributing to fatigue or insomnia
- CVA
- arrhythmia
- USA/NC
MDM/Problems Addressed:
Acute:
- Generalized weakness
- Frequent falls
- Bilateral shoulder pain
- Chest pain
- Elevated potassium level
Chronic:
- Chronic kidney disease
- Diastolic dysfunction with reduced ejection fraction
- Past urinary tract infection
- CAD
- CVA
Significant concern for recurrent pulmonary edema and electrolyte abnormality/hyperkalemia related to missed dialysis. These could certainly be attributed to his ambulatory dysfunction, frequent falls but must also consider CVA, closed head injury.
Complains of bilateral shoulder pain and upon review of records similar complaints of shoulder pain October 2023. I suspect acute on chronic DJD but must consider fracture. With bilateral shoulder pain and frequent falls must also consider
cervical spine fracture.
Polymyalgia rheumatica is much less likely.
EKG shows normal sinus rhythm with first-degree AV block, frequent unifocal PVCs, bigeminy. Overall similar to previous EKG July 04.
Patient remains hemodynamically stable and is afebrile. Normal pulse ox although noted have very mild resting tachypnea.
Review of previous records notes UTI on last hospitalization July 04 with urine culture positive for Staph epidermidis. Must consider recurrent UTI thus will check urinalysis with reflex to culture.
Labs are pending.
Due to significant concern for recurrent falls, missing dialysis, recurrent pulmonary edema, patient will require acute hospitalization for stabilization, further evaluation.
I have significant concern for progressive decline and concern for patient's safety residing alone/independently. I highly suspect he will require significant outpatient social service support. Other consideration is need for SNF placement.
*Radiology
Radiology exam reviewed: radiology read reviewed (CT of the head shows no acute intracranial hemorrhage. Atrophy and small vessel ischemic disease. Old lacunar infarcts. C-spine shows no acute fracture. Moderate DJD of cervical spine.)
*Pulse Oximetry
SaO2: 96
Oxygen Mode of Delivery: Room air
Patient hypoxic: no
*EKG
Interpreted by ED Provider?: Yes
Interpretation: abnormal
Comparison EKG: no changes (Unchanged from previous July 04, 2025)
Rate: normal
Rhythm: sinus and PVC's
Interval: first degree heart block
QRS Pattern: right bundle branch block
Ischemia: non-specific ST changes
*Supervisor Type Bar And Segment Interpretation
Rate: normal
Interpretation: abnormal
Rhythm: sinus, PVC's and other (Intermittent bigeminy)
*Critical Care Note
Total Time (30-74mins, 75-104mins- exclusive of procedures): Not Applicable
Patient Management
Social determinants of health affecting care: Living situation, Poor outpatient follow-up and Poor social support
Escalation/DeEscalation of care consider admission/obs:
The patient lives alone and is still driving himself to dialysis appointments, which may contribute to the irregular attendance for treatment sessions.
Update Note
Update Note:
Labs show mild but stable anemia.
Markedly elevated BUN and creatinine with metabolic acidosis. Potassium elevated at 6.1.
Troponin mildly elevated 0.035. This is actually improved from previous.
EKG shows normal sinus rhythm with frequent PVCs, intermittent bigeminy, first-degree AV block and right bundle branch block. Overall similar to previous June 2018.
Bilateral shoulder x-rays showed DJD more so on the left than right. No fracture.
Chest x-ray shows interstitial fullness consistent with CHF, cardiomegaly, similar to previous.
CTs of head and cervical spine show no acute findings.
Hyperkalemia has been addressed with stabilizing medications.
Will admit to hospitalist service.
ED Attending Note
-
Portions of this chart may have been created with voice recognition software.� Occasional wrong word or��sound alike� substitutions may have occurred due to the inherent limitations of voice recognition software.
Discharge Plan
Departure
Patient Disposition: Admit
Date of Disposition: 07/25/25
Time of Disposition: 01:19
Admit to: Telemetry
Admit to doctor: Ketan
Presentation/result/management discussed w/ accepting MD/DO: Hospitalist
Condition: Fair
Discharge Problem:
End-stage renal disease, dialysis depend, Acute ambulatory dysfunction, Frequent falls, DJD of both shoulders, Acute exacerbation of chronic insomnia, Recurrent hyperkalemia, Acute on chronic CHF
Prescriptions:
No Action
Eliquis 2.5 MG tablet
2.5 mg PO BID Qty: 60 0RF
atorvastatin 80 MG tablet
80 mg PO DAILY
tamsulosin 0.4 MG capsule
0.4 mg PO BID
amlodipine 5 mg tablet
5 mg PO DAILY Qty: 30 11RF
furosemide 80 mg Tablet
80 mg PO BID
losartan 25 mg Tablet
25 mg PO DAILY
carvedilol [Coreg] 6.25 mg tablet
6.25 mg PO BID Qty: 90 3RF
sertraline 50 mg Tablet
50 mg PO BID
mirtazapine 7.5 mg Tablet
7.5 mg PO HS
therapeutic multivitamin Tablet
1 tab PO DAILY
calcium acetate 668 mg (169 mg calcium) Tablet
1,336 mg PO AC
Referrals:
Rylan Tamez, Jose Rodriguez, [Other]
Jose Tamez MD [Family Provider, Family Practice]
Interventions
Interventions:
*Risk Screen - Suicide Last Done: 07/24/25 21:36
*General Assessment Last Done: 07/24/25 21:36
*Neglect/Abuse Screening Last Done: 07/24/25 21:36
*ED- Fall Risk Assessment Last Done: 07/24/25 21:36
*ED COVID-19 Vaccine History Last Done: 07/24/25 21:36
ED- Cardiac Assessment Last Done: 07/24/25 21:57
ED- Neurological Assessment Last Done: 07/24/25 21:57
ED- Pulmonary Assessment Last Done: 07/24/25 21:57
Discharge Date and Time
Print Language: BERMUDIAN
[2025-07-24 22:51] LABS: Glucose - Point of Care 136 mg/dl (70-99)
[2025-07-24] MEDS: LASIX 80 MG IV (22:52)
[2025-07-24] MEDS: CALCIUM GLUCONATE 1000 MG IV (22:57)
[2025-07-24 23:00] VITALS: BP 129/75
[2025-07-24] MEDS: DEXTROSE 50% SYRINGE 25 GRAMS IV (23:00)
[2025-07-24] MEDS: NOVOLIN R 5 UNITS IV (23:04)
[2025-07-24] MEDS: SODIUM BICARBONATE 50 MEQ IV (23:06)
[2025-07-24] MEDS: LOKELMA 10 GRAM PO (23:08)
[2025-07-24 23:35] VITALS: BP 150/84
[2025-07-25] VITALS (10 sets, daily range): BP systolic 130–159; BP diastolic 54–71; PULSE 64–65; O2SAT 97; BMI 25.9
[2025-07-25 00:19] LABS: Glucose - Point of Care 81 mg/dl (70-99)
[2025-07-25 01:11] LABS: Glucose - Point of Care 116 mg/dl (70-99)
[2025-07-25 01:40] LABS: Potassium 5.5 mmol/L (3.5-5.1)
--- NOTE | 2025-07-25 01:40 | HPS.HSE ---
Family Physician
-
Family Physician: Jose Tamez
Chief Complaint
-
SOB, Falls
History of Present Illness
Patient is an 84y M with PMH significant for ESRD on HD, CHFpEF and A-Fib who presents to ED complaining of weakness / falls and SOB. Patient states that he has been increasingly weak and unsteady since Friday. He reports dyspnea with activity
- even walking - and notes that he has had to hold on to furniture, etc due to imbalance/ unsteady gait. he fell twice yesterday - once on either side. He complains of pain in both shoulder after these falls. Not clear whether he struck his head.
He denies syncope / LOC. Patient has some residual L sided weakness from prior stroke. He denies any specific laterality to his current issues and notes that both legs seem weak.
He denies any recent cough, fevers / chills, chest pain, N/V/D or urinary complaints (he states that he urinates normally despite HD status).
Patient missed his last HD on Friday. He has a history of frequent missed sessions and has been hospitalized for volume overload as a result on multiple occasions.
Patient reports that he 'can't sleep' after dialysis and typically stays up for days. He falls asleep only a short time before Friday HD and then sleeps through this as a result.
He states that he does not have similar issues after Friday dialysis.
Medical History
Past Medical History
Past Medical History: Reports Other
Additional Past Medical History:
Cardiac murmur
Cardiac stents�Stent March 2017, drug-eluting stent, multiple stents and PCI 2 stents to circumflex and PDA on 05/26/2008, 07/31/2011
CAD/IA/CABG x 3 vessel 05/19/2017 GALVEZ to LAD, vein graft OM 2 sequential to OM [address] Wilkes 05/19/2017
2D echo 03/02/2025 EF 50-55%, normal LVS LVSF, mild LVH, mild inferior septal hypokinesis, stage I diastolic dysfunction, severely dilated LA, moderate MR, mild TR, PASP 22 mmHg
Stent coronary artery
RBBB
Paroxysmal A-fib
Bradycardia due to labetalol
ESRD on HD Friday by his choice
Anemia of chronic disease
Benign HTN
CVA with left-sided weakness
HLD
Depression
Past Surgical History: Reports Other
Additional Past Surgical History:
Stent March 2017, drug-eluting stent, multiple stents and PCI 2 stents to circumflex and PDA on 05/26/2008, 07/31/2011
CABG x 3 vessel GALVEZ to LAD, vein graft OM [address] sequential to OM [address] Wilkes 05/19/2017
AV fistula 11/03/2020, left arm fistulogram 01/05/2021, 04/13/2021
Stenting left upper extremity brachiocephalic fistula venous outflow stenosis Dr. Escobar 02/08/2022
Balloon angioplasty proximal venous stenosis of the left upper arm AV fistula Dr. Escobar 02/04/2023
Social History
Tobacco: Former Smoker (Quit smoking many years ago.)
Alcohol: None
Drug: None
Personal: Single
Living: Alone
Employment: Retired
Family History
Family History: Other (Father age 61 [place] Mother age 70 CVA Son from suicide Son bladder cancer)
Allergies / Home Medications
Allergies reflects when Allergies were last updated in [facility].
Home Medications with original date entered in [facility]
Allergy/Medication List:
Allergies
Allergy/AdvReac Type Severity Reaction Status Date / Time
No Known Allergies Allergy Verified 05/28/25 03:54
Home Medications
apixaban 2.5 mg tablet (Eliquis) 2.5 mg PO BID blood thinner #60 tabs 05/12/21
atorvastatin 80 mg tablet 80 mg PO DAILY High cholesterol 01/03/22
tamsulosin 0.4 mg capsule 0.4 mg PO BID Urinary issue 03/25/22
amlodipine 5 mg tablet 5 mg PO DAILY Blood pressure #30 tabs 12/16/23
furosemide 80 mg tablet 80 mg PO BID Fluid Retention/Swelling 01/06/24
losartan 25 mg tablet 25 mg PO DAILY Blood Pressure 01/06/24
carvedilol 6.25 mg tablet (Coreg) 6.25 mg PO BID #90 tabs 01/09/24
mirtazapine 7.5 mg tablet 7.5 mg PO HS Mental Health/Anxiety 04/12/25
sertraline 50 mg tablet 50 mg PO BID Depression 04/12/25
calcium acetate 668 mg (169 mg calcium) tablet 1,336 mg PO AC hyperphosphatemia 07/04/25
therapeutic multivitamin 1 tab PO DAILY Supplement 07/04/25
Review of Systems
-
History Source: Patient
A 12 point ROS was completed and negative except as noted: Yes
Constitutional: Reports Fatigue; Denies Fever or Chills
EENT: Denies Sore Throat
Respiratory: Reports Trouble Breathing; Denies Cough
Cardiac: Denies Chest Pain or Palpitations
Abdomen/GI: Denies Abdominal Pain, Nausea, Vomiting or Diarrhea
: Denies Dysuria, Frequency or Flank Pain
Musculoskeletal: Denies Joint Pain or Edema
Neurological: Reports Dizzy and Weakness; Denies Headache or Numbness
Psych: Denies Depression or Anxiety
Physical Exam
Vital Signs
Vital Signs
Temp Pulse Resp BP Pulse Ox
97.5 F 69 24 148/65 96
07/24/25 21:36 07/25/25 01:00 07/25/25 01:00 07/25/25 01:00 07/25/25 01:00
Physical Exam
General: Other (84y M in no acute distress.)
HEENT: Moist mucous membranes and PERRLA
Respiratory: Other (Few bibasilar rales.)
Cardiac: S1/S2 and Regular Rhythm; No Murmur
GI: Soft, Non Tender, Non Distended and Normal Bowel Sounds
Musculoskeletal: No Clubbing, No Cyanosis and No Edema
Neuro: AO x 3 and Other (Mild L weakness - unchanged per patient.)
Hematologic/Lymphatic: Other (LUE AVF with pos thrill / bruit.)
Laboratory Results
-
07/24/25 21:49
Laboratory Results
Total Bilirubin 0.7 mg/dl (0.2-1.3) 07/24/25 21:49
AST 19 U/L (17-59) 07/24/25 21:49
ALT 20 U/L (0-50) 07/24/25 21:49
Alkaline Phosphatase 86 U/L (38-126) 07/24/25 21:49
Troponin I 0.035 ng/ml H* 07/24/25 21:49
Impression/Plan
-
A/P: Patient is an 84y M with PMH significant for ESRD on HD, A-Fib and hypertension who presents to ED complaining of weakness / falls and dyspnea with exertion x 2 days.
Volume Overload
Acute on Chronic HFrEF
ESRD on HD with Missed HD Session
Anion Gap Metabolic Acidosis (? uremia)
Mild Hyperkalemia
- Admit for further evaluation and treatment.
- Nephrology evaluation for HD needs during acute stay.
- Continue usual Lasix dose for now with additional volume management on HD.
- Reported dry weight per prior notes is 77kg. Currently 83kg by ED scale.
Ambulatory Dysfunction
Frequent Falls
- PT / OT evaluations.
- No evidence of new focal deficits on exam.
- Decrease tamsulosin to once daily.
- Follow orthostatic signs.
Paroxysmal Atrial Fibrillation
- Stable. Continue metoprolol.
- Continue Eliquis for stroke risk reduction.
Anemia of CKD
- Stable. Hgb is at / near known baseline.
- Follow for changes.
Anxiety / Depression / Insomnia
- Continue current med regimen including sertraline / mirtazapine.
DVT Prophylaxis: On Eliquis
Code Status: DNR
[2025-07-25] MEDS: REMERON 7.5 MG PO ×2 (01:53→20:59)
[2025-07-25 03:09] LABS: Glucose - Point of Care 142 mg/dl (70-99)
[2025-07-25 05:10] LABS: Glucose - Point of Care 119 mg/dl (70-99)
[2025-07-25] MEDS: COREG 6.25 MG PO ×2 (08:28→20:58)
[2025-07-25] MEDS: LASIX 80 MG PO ×2 (08:29→20:59)
[2025-07-25] MEDS: ZOLOFT 50 MG PO ×2 (08:29→20:59)
[2025-07-25] MEDS: LIPITOR 80 MG PO (08:29)
[2025-07-25] MEDS: NORVASC 5 MG PO (08:29)
[2025-07-25] MEDS: COZAAR 25 MG PO (08:30)
[2025-07-25] MEDS: ELIQUIS 2.5 MG PO ×2 (08:30→20:58)
[2025-07-25] MEDS: PHOSLO 1334 MG PO ×3 (08:30→17:50)
[2025-07-25 08:53] LABS: Hematocrit 26.8 % (39.0-52.0); Hemoglobin 8.7 g/dL (13.0-18.0); Mean Corp Hgb Conc. 32.5 g/dL (33.0-37.0); Mean Corpuscular Volume 97.1 fL (80.0-94.0); Platelet Count 93 10^3/uL (130-400); Red Cell Dist. Width 17.6 % (11.5-14.5)
[2025-07-25 09:02] LABS: Calcium 8.6 mg/dl (8.4-10.2); Carbon Dioxide 16 mmol/L (22-30); Chloride 103 mmol/L (98-107); Estimated Creatinine Clearance 5 ml/min; Glucose 89 mg/dl (70-99); Magnesium 2.5 mg/dl (1.6-2.3); Potassium 5.7 mmol/L (3.5-5.1); Sodium 139 mmol/L (135-145); eGFR 4.60
[2025-07-25 09:26] LABS: Blood Urea Nitrogen 135 mg/dl (9-20)
--- NOTE | 2025-07-25 16:32 | W.CON.NEPH ---
Consultation
-
Date/Time Consultation Requested: July 25, 2025 9 AM
Date/Time Consultation Performed: July 25, 2025 4:30 PM
Requesting Provider: Dr. Aceves
Performing Provider: Dr. Vargas
Reason for Consultation: ESRD
Medical History
-
Chief Complaint: ESRD and hyperkalemia
History of Present Illness:
The patient is an 84-year-old male presents with weakness and 2 falls in the last week at home and missed dialysis on last and Friday. He has baseline uncontrolled hypertension due to his noncompliance with dialysis modality. He
receives ROB therapy on dialysis for his anemia of chronic kidney disease and is chronically anticoagulated for paroxysmal A-fib. His past medical history also includes CAD status post PCI to the RCA. He is also status post CABG in 2017, CVA.
He was hospitalized just last month with weakness. He has had more falls at home and given this came to the emergency room. He says that he has not been sleeping at home though his daughter who says that she has seen the cameras in the house that
he does nap though he does not sleep in the bed he only ever sleeps on the couch. He appears to nap for a few hours each time. The patient says that he does not go into the bedroom because it reminds him of his who . Lab values
show BUN greater than 100, creatinine greater than 10, potassium 5.7.
Past Medical History
Status post RCA stent on 11/26/23
ESRD TTS [facility] in [place]
Diarrhea chronic
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
Hypertension
Atrial fibrillation
BPH
Anemia of CKD
CAD/CABG 2016
Cerebrovascular disease
TIA 2002
History ESBL Klebsiella pneumoniae UTI
Gout
Medical noncompliance (allows only two 3-hour HD treatments weekly)
Past Surgical History: Other (Stent March 2017, drug-eluting stent, multiple stents and PCI 2 stents to circumflex and PDA on 05/26/2008, 07/31/2011 CABG x 3 vessel GALVEZ to LAD, vein graft OM [address] Wilkes 05/19/2017 AV fistula
11/03/2020, left arm fistulogram 01/05/2021, 04/13/2021 Stenting left upper extremity brachi)
Social History
Tobacco: Former Smoker
Alcohol: None
Family History
no ckd
Family History: Not Pertinent
Allergies / Home Medications
Allergy/AdvReac Type Severity Reaction Status Date / Time
No Known Allergies Allergy Verified 05/28/25 03:54
�Medication �Instructions �Recorded �Confirmed �Type
apixaban 2.5 mg tablet (Eliquis) 2.5 mg PO BID blood thinner #60 05/12/21 07/25/25 Rx
tabs
atorvastatin 80 mg tablet 80 mg PO DAILY High cholesterol 01/03/22 07/25/25 History
tamsulosin 0.4 mg capsule 0.4 mg PO BID Urinary issue 02/08/22 07/25/25 History
amlodipine 5 mg tablet 5 mg PO DAILY Blood pressure #30 12/16/23 07/25/25 Rx
tabs
furosemide 80 mg tablet 80 mg PO BID Fluid 01/06/24 07/25/25 History
Retention/Swelling
losartan 25 mg tablet 25 mg PO DAILY Blood Pressure 01/06/24 07/25/25 History
carvedilol 6.25 mg tablet (Coreg) 6.25 mg PO BID #90 tabs 01/09/24 07/25/25 Rx
mirtazapine 7.5 mg tablet 7.5 mg PO HS Mental Health/Anxiety 04/12/25 07/25/25 History
sertraline 50 mg tablet 50 mg PO BID Depression 04/12/25 07/25/25 History
calcium acetate 668 mg (169 mg 1,336 mg PO AC hyperphosphatemia 07/04/25 07/25/25 History
calcium) tablet
therapeutic multivitamin 1 tab PO DAILY Supplement 07/04/25 07/25/25 History
Review of Systems
-
No chest pain or shortness of breath. Weakness overall, falls as above. Poor sleep.
Physical Exam
Vital Signs
Vital Signs
Temp Pulse Resp BP Pulse Ox
97.8 F 63 18 151/61 99
07/25/25 15:00 07/25/25 15:00 07/25/25 15:00 07/25/25 15:00 07/25/25 15:00
Lab Results
WBC 5.7 10^3/uL (4.8-10.8) 07/25/25 06:31
RBC 2.76 10^6/uL (4.70-6.10) L 07/25/25 06:31
Hgb 8.7 g/dL (13.0-18.0) L 07/25/25 06:31
Hct 26.8 % (39.0-52.0) L 07/25/25 06:
Plt Count 93 10^3/uL (130-400) L 07/25/25 06:31
Sodium 139 mmol/L (135-145) 07/25/25 06:31
Potassium 5.7 mmol/L (3.5-5.1) H 07/25/25 06:31
Chloride 103 mmol/L (98-107) 07/25/25 06:31
Carbon Dioxide 16 mmol/L (22-30) L 07/25/25 06:31
BUN 135 mg/dl (9-20) H* 07/25/25 06:31
Creatinine 10.1 mg/dL (0.7-1.3) H* 07/25/25 06:31
eGFR 4.60 07/25/25 06:31
Glucose 89 mg/dl (70-99) 07/25/25 06:31
Calcium 8.6 mg/dl (8.4-10.2) 07/25/25 06:
Phosphorus 9.7 mg/dl (2.5-4.5) H 07/25/25 06:31
Albumin 4.5 g/dl (3.5-5.0) 07/24/25 21:49
Laboratory Tests
07/05/25
07:48
Hgb 7.9 L
Physical Exam
Patient is awake alert oriented and in no distress. Mood and affect were pleasant, insight and judgment were good. Pupils are equal round and reactive to light, extraocular movements are intact, sclera were anicteric. Hearing was normal, ears and
nose are intact. Oropharynx was clear. Neck was supple with trachea midline and no thyromegaly. Heart was regular rate and rhythm without rubs. Lower extremities without edema. Lungs were clear to auscultation bilaterally and with normal
excursion. Abdomen was soft, nontender, with normal active bowel sounds, and no hepatosplenomegaly. Skin was without rash and with normal turgor. AV fistula with good thrill and bruit
Data Reviewed
-
Radiology: Image Personally Visualized and interpreted (Chest x-ray 07/24/2025 by my reading vascular prominence)
Medical Tests (Nuc Med, Echo etc): Image Personally Visualized and interpreted (EKG 07/24/2025 by my reading sinus rhythm right bundle branch block inferior Q lateral T wave abnormality)
Labs: Labs Reviewed by me
Old Records: Reviewed
Assessment/Plan
-
Impression:
ESRD TTS [facility] in [place]
HTN
AV fistula last fistulogram 02/2025
BPH
Anemia of chronic disease/ESRD
CAD/[place]/CABG s/p stent 11/2023
RBBB
Paroxysmal A-fib
Cardiac murmur
Bradycardia due to labetalol
Chronic diastolic CHF
HLD
Depression
Gout
Medical noncompliance (allows only two 3-hour HD treatments weekly)
Chronic dizziness
Poor sleep
Plan:
Dialysis today
Dialysis tomorrow
Will likely need rehab
Discussed with patient and daughter
--- NOTE | 2025-07-25 17:10 | W.PN.NEPH.HD ---
Assessment
-
Seen on HD no new complaints. VSS< access ok
Progress Note - Hemodialysis
-
Date of Service: July 25, 2025
Duration: 3 hours
Potassium Bath: 2
Calcium Bath: 2.5
Opti-Dialyzer: 160
Ultrafiltration: Other (3kg)
Blood Flow: 400
Dialysate Flow: 600
Heparin: 0
EPO: [id number] units
--- NOTE | 2025-07-25 17:12 | PTCARENOTE ---
received pt to 3W, room 327 from ED approx 12:00. VS obtained, assessment complete, pt oriented to room, bed in lowest position, bed alarm applied, call linn within reach. Pt resting comfortably, will receive HD later today and again tomorrow
[2025-07-25] MEDS: RETACRIT 10000 UNITS IV (17:44)
[2025-07-25] MEDS: FLOMAX 0.4 MG PO (20:59)
[2025-07-26] VITALS (7 sets, daily range): BP systolic 137–152; BP diastolic 52–68; PULSE 70–76; BMI 25.7
[2025-07-26 06:53] LABS: Hematocrit 25.2 % (39.0-52.0); Hemoglobin 8.2 g/dL (13.0-18.0); Mean Corp Hgb Conc. 32.5 g/dL (33.0-37.0); Mean Corpuscular Volume 96.6 fL (80.0-94.0); Platelet Count 91 10^3/uL (130-400); Red Cell Dist. Width 17.4 % (11.5-14.5)
[2025-07-26 07:40] LABS: Blood Urea Nitrogen 64 mg/dl (9-20); Calcium 8.0 mg/dl (8.4-10.2); Carbon Dioxide 25 mmol/L (22-30); Chloride 102 mmol/L (98-107); Estimated Creatinine Clearance 8 ml/min; Glucose 91 mg/dl (70-99); Potassium 4.3 mmol/L (3.5-5.1); Sodium 139 mmol/L (135-145); eGFR 7.80
[2025-07-26] MEDS: NORVASC 5 MG PO (08:53)
[2025-07-26] MEDS: COZAAR 25 MG PO (08:53)
[2025-07-26] MEDS: LASIX 80 MG PO ×2 (08:53→20:47)
[2025-07-26] MEDS: ELIQUIS 2.5 MG PO ×2 (08:54→20:47)
[2025-07-26] MEDS: PHOSLO 1334 MG PO ×3 (08:54→17:28)
[2025-07-26] MEDS: COREG 6.25 MG PO ×2 (08:54→20:47)
[2025-07-26] MEDS: ZOLOFT 50 MG PO ×2 (08:54→20:47)
[2025-07-26] MEDS: LIPITOR 80 MG PO (08:54)
--- NOTE | 2025-07-26 09:18 | W.PN.HOSP.TC ---
Today's Communication/Plan
-
Check orthostatic vital signs
Discharge planning to SNF
Assessment / Plan
Assessment / Plan
HPI: 84y M with PMH significant for ESRD on HD, A-Fib and hypertension who presents to ED complaining of weakness / falls and dyspnea with exertion x 2 days.
Volume Overload
Acute on Chronic HFrEF
ESRD on HD with Missed HD Session
Anion Gap Metabolic Acidosis (? uremia)
Mild Hyperkalemia
- Appreciate nephrology input
- Hyperkalemia resolved status post dialysis 07/25
- Continue usual Lasix dose for now with additional volume management on HD.
- Reported dry weight per prior notes is 77kg. Currently 78.9 kg
- Continue dialysis as per nephrology, usually on Friday//Friday schedule
Ambulatory Dysfunction
Frequent Falls
Intermittent dizziness
- PT/OT rec SNF - CM informed 07/26
- No evidence of new focal deficits on exam
- Decreased tamsulosin to once daily
- Requested orthostatic vital signs from nursing
Paroxysmal Atrial Fibrillation
- Continue metoprolol and Eliquis
Anemia of CKD
- Monitor hemoglobin
Anxiety / Depression / Insomnia
- Continue sertraline / mirtazapine.
DVT Prophylaxis: On Eliquis
Code Status: DNR
Total time spent to see the patient on the floor, examine the patient, review data and lab results, discuss treatment plan with patient, nursing staff around 40 minutes.
Physical Exam
General: Appears chronically weak, no acute distress
HEENT: Normocephalic, Atraumatic, EOMI, MMM
Respiratory: Clear to Auscultation bilaterally
Cardiac: Normal S1/S2, Regular Rate and Rhythm
GI: Soft, Nontender, Nondistended, Normal Bowel Sounds
Extremities: No Clubbing, Cyanosis, or Edema
Neuro: Nonfocal/Grossly Intact
Anticipated Discharge: 24 - 48 hours
Subjective/Interval History
-
Date of Service: July 26, 2025
Patient reports intermittent dizziness, sometimes standing, sometimes sitting. No chest pain, no shortness of breath. No fever, no vomiting.
Objective Data
-
Labs:
Laboratory Results
07/26/25
05:47
WBC 4.5 L
Hgb 8.2 L
Hct 25.2 L
Plt Count 91 L
Sodium 139
Potassium 4.3
Chloride 102
Carbon Dioxide 25
BUN 64 H
Creatinine 6.5 H*
Glucose 91
Calcium 8.0 L
Vital Signs:
Vital Signs
Temp Pulse Resp BP Pulse Ox
97.4 F 68 18 152/64 98
07/26/25 07:00 07/26/25 08:54 07/26/25 07:00 07/26/25 08:54 07/26/25 07:00
I&O
07/25/25 07/26/25 07/27/25
06:59 06:59 06:59
Intake Total 840 / 840
Balance 840 / 840
[2025-07-26] MEDS: RETACRIT 10000 UNITS IV (12:52)
--- NOTE | 2025-07-26 15:33 | W.PN.NEPH.HD ---
Assessment
-
Seen on HD. no new complaints. not sleeping. VSS, access ok
Progress Note - Hemodialysis
-
Date of Service: July 26, 2025
Duration: 3 hours
Potassium Bath: 2
Calcium Bath: 2.5
Opti-Dialyzer: 160
Ultrafiltration: Other
Blood Flow: 400
Dialysate Flow: 600
Heparin: 0
EPO: [id number] units
--- NOTE | 2025-07-26 16:07 | CM ---
CM following for discharge planning. CARE AIDE pt had been driving himself to dialysis at [facility] in [place]. He has recently had several falls at home and was admitted to on 07/24/2025. SNF is recommended.
Pt is receiving dialysis this afternoon, so will need to await PT eval for SNF authorization; OT eval completed today.
Plan: CM to speak with patient and daughter to determine facilities of choice for SNF transfer.
[2025-07-26] MEDS: REMERON 7.5 MG PO (20:47)
[2025-07-26] MEDS: FLOMAX 0.4 MG PO (21:42)
[2025-07-27 03:00] VITALS: BP 153/66
[2025-07-27 06:00] VITALS: BMI 25.2
[2025-07-27 07:00] VITALS: BP 148/57
[2025-07-27 07:15] LABS: Hematocrit 29.7 % (39.0-52.0); Hemoglobin 9.2 g/dL (13.0-18.0); Mean Corp Hgb Conc. 31.0 g/dL (33.0-37.0); Mean Corpuscular Volume 98.7 fL (80.0-94.0); Platelet Count 99 10^3/uL (130-400); Red Cell Dist. Width 17.8 % (11.5-14.5)
[2025-07-27 07:22] LABS: Blood Urea Nitrogen 40 mg/dl (9-20); Calcium 8.2 mg/dl (8.4-10.2); Carbon Dioxide 29 mmol/L (22-30); Chloride 102 mmol/L (98-107); Estimated Creatinine Clearance 12 ml/min; Glucose 97 mg/dl (70-99); Potassium 4.4 mmol/L (3.5-5.1); Sodium 140 mmol/L (135-145); eGFR 12.46
[2025-07-27] MEDS: LASIX 80 MG PO ×2 (08:26→21:05)
[2025-07-27] MEDS: ZOLOFT 50 MG PO ×2 (08:27→21:06)
[2025-07-27] MEDS: COZAAR 25 MG PO (08:27)
[2025-07-27] MEDS: PHOSLO 1334 MG PO ×3 (08:27→17:47)
[2025-07-27] MEDS: NORVASC 5 MG PO (08:27)
[2025-07-27] MEDS: LIPITOR 80 MG PO (08:28)
[2025-07-27] MEDS: ELIQUIS 2.5 MG PO ×2 (08:28→21:06)
[2025-07-27] MEDS: COREG 6.25 MG PO ×2 (08:28→21:06)
--- NOTE | 2025-07-27 08:56 | W.PN.HOSP.TC ---
Today's Communication/Plan
-
Discharge to short-term rehab when bed available
Assessment / Plan
Assessment / Plan
HPI: 84y M with PMH significant for ESRD on HD, A-Fib and hypertension who presents to ED complaining of weakness / falls and dyspnea with exertion x 2 days.
Volume Overload
Acute on Chronic HFrEF
ESRD on HD with Missed HD Session
Anion Gap Metabolic Acidosis (? uremia)
Mild Hyperkalemia
- Appreciate nephrology input
- Hyperkalemia resolved status post dialysis 07/25
- Continue usual Lasix dose for now with additional volume management on HD
- Reported dry weight per prior notes is 77kg. Was 79.6 kg upon admission, now back to dry weight of 77.3 kg
- Continue dialysis as per nephrology, usually on Friday//Friday schedule
- Medically stable for discharge to short-term rehab when bed available
Ambulatory Dysfunction
Frequent Falls
Intermittent dizziness
- PT/OT rec SNF - CM informed 07/26
- No evidence of new focal deficits on exam
- Decreased tamsulosin to once daily
- Orthostatic vital signs negative, dizziness resolved
Paroxysmal Atrial Fibrillation
- Continue metoprolol and Eliquis
Anemia of CKD
- Monitor hemoglobin
Anxiety / Depression / Insomnia
- Continue sertraline / mirtazapine.
DVT Prophylaxis: On Eliquis
Code Status: DNR
Total time spent to see the patient on the floor, examine the patient, review data and lab results, discuss treatment plan with patient, nursing staff around 36 minutes.
Physical Exam
General: Appears chronically weak, no acute distress
HEENT: Normocephalic, Atraumatic, EOMI, MMM
Respiratory: Clear to Auscultation bilaterally
Cardiac: Normal S1/S2, Regular Rate and Rhythm
GI: Soft, Nontender, Nondistended, Normal Bowel Sounds
Extremities: No Clubbing, Cyanosis, or Edema
Neuro: Nonfocal/Grossly Intact
Anticipated Discharge: Within 24 hours
Subjective/Interval History
-
Date of Service: July 27, 2025
Dizziness and shortness of breath have resolved. No chest pain, no nausea, no vomiting. No fever.
Objective Data
-
Labs:
Laboratory Results
07/27/25
06:13
WBC 4.4 L
Hgb 9.2 L
Hct 29.7 L
Plt Count 99 L
Sodium 140
Potassium 4.4
Chloride 102
Carbon Dioxide 29
BUN 40 H
Creatinine 4.4 H*
Glucose 97
Calcium 8.2 L
Vital Signs:
Vital Signs
Temp Pulse Resp BP Pulse Ox
97.9 F 72 16 148/57 99
07/27/25 07:00 07/27/25 08:28 07/27/25 07:00 07/27/25 08:28 07/27/25 07:00
I&O
07/26/25 07/27/25 07/28/25
06:59 06:59 06:59
Intake Total 840 / 840 820 / 820
Balance 840 / 840 820 / 820
[2025-07-27 11:00] VITALS: BP 151/59
--- NOTE | 2025-07-27 11:50 | PN.CDI ---
CDI
- -
CDI:
Physician Documentation Request
Admit Date: 07/25/25 01:48
Dear Doctor Do,
Patient admitted acute on chronic HFrEF
Trop 07/24 0.035
Could you please provide a diagnosis that supports the above lab abnormalities:
nonischemic myocardial injury
Type II ME demand ischemia
Abnormal lab value clinically insignificant
Other
Use of terms such as suspected, likely, concern for, or probable (associated with a specific diagnosis that is being evaluated, monitored, or treated as if it exists) are acceptable and can be coded in the inpatient setting, when documented at the
time of discharge.
Thank you,
Tanisha Serna RN, BSN
CDI Specialist
tiger text
Please use your independent medical judgment in providing your response.
--- NOTE | 2025-07-27 11:53 | PN.CDI ---
CDI
- -
CDI:
Physician Documentation Request
Admit Date: 07/25/25 01:48
Dear Doctor Do,
Patient admitted with Acute on Chronic HFrEF
Recent hematology results:
Laboratory Tests
07/26/25 07/27/25
05:47 06:13
WBC 4.5 L 4.4 L
RBC 2.61 L 3.01 L
Plt Count 91 L 99 L
Could you please provide a diagnosis that supports the above lab abnormalities and additional evaluation/ monitoring:
Pancytopenia
Abnormal lab value clinically insignificant
Other- please specify
Use of terms such as suspected, likely, concern for, or probable (associated with a specific diagnosis that is being evaluated, monitored, or treated as if it exists) are acceptable and can be coded in the inpatient setting, when documented at the
time of discharge.
Thank you,
Tanisha Serna RN BSN
CDI Specialist
tiger text
Please use your independent medical judgment in providing your response.
--- NOTE | 2025-07-27 12:15 | PTCARENOTE ---
Tele monitor alarmed- pt had 14 beat run of Vtach. Pt denies chest pain and/or palpitations. BP 149/61 HR 75 now on monitor. made aware. No new orders at this time.
--- NOTE | 2025-07-27 12:15 | CM ---
Therapy recommendation for SNF. Patient on HD. Referrals forwarded to SNF-HD facilities.
[2025-07-27 15:00] VITALS: BP 135/52
--- NOTE | 2025-07-27 15:21 | W.PN.NEPH.PH ---
Today's Communication / Plan
-
HD Friday
Assessment/Plan
-
Impression:
ESRD TTS [facility] in [place]
HTN
AV fistula last fistulogram 02/2025
BPH
Anemia of chronic disease/ESRD
CAD/[place]/CABG s/p stent 11/2023
RBBB
Paroxysmal A-fib
Cardiac murmur
Bradycardia due to labetalol
Chronic diastolic CHF
HLD
Depression
Gout
Medical noncompliance (allows only two 3-hour HD treatments weekly)
Chronic dizziness
Poor sleep
Plan:
hemodynamically stable
tolerated HD yesterday, wants no HD tomorrow
next one on Friday
pending rehab placement
wt is down
-
-
Date of Service: July 27, 2025
CC / HPI / ROS
-
Chief Complaint:
ESRD
History of Present Illness:
ESRD Friday but only goes to dialysis once or twice a week
Hemodynamically stable
wt is down
Review of Systems:
no fever
sleeping during visit
on RA
Labs
-
Labs:
WBC 4.4 10^3/uL (4.8-10.8) L 07/27/25 06:13
RBC 3.01 10^6/uL (4.70-6.10) L 07/27/25 06:13
Hgb 9.2 g/dL (13.0-18.0) L 07/27/25 06:13
Hct 29.7 % (39.0-52.0) L 07/27/25 06:13
Plt Count 99 10^3/uL (130-400) L 07/27/25 06:13
Sodium 140 mmol/L (135-145) 07/27/25 06:13
Potassium 4.4 mmol/L (3.5-5.1) 07/27/25 06:13
Chloride 102 mmol/L (98-107) 07/27/25 06:13
Carbon Dioxide 29 mmol/L (22-30) 07/27/25 06:13
BUN 40 mg/dl (9-20) H 07/27/25 06:13
Creatinine 4.4 mg/dL (0.7-1.3) H* 07/27/25 06:13
eGFR 12.46 07/27/25 06:13
Glucose 97 mg/dl (70-99) 07/27/25 06:13
Calcium 8.2 mg/dl (8.4-10.2) L 07/27/25 06:13
Phosphorus 9.7 mg/dl (2.5-4.5) H 07/25/25 06:31
Albumin 4.5 g/dl (3.5-5.0) 07/24/25 21:49
Physical Exam
-
Vital Signs:
Vital Signs
Temp Pulse Resp BP Pulse Ox
97.6 F 65 18 151/59 99
07/27/25 11:00 07/27/25 11:00 07/27/25 11:00 07/27/25 11:00 07/27/25 11:00
Cardiovascular:: Regular rate and rhythm
Respiratory:: Bilateral: CTA
Lung Excursion:: Normal
Abdomen:: Nontender and Soft
Bowel Sounds:: Normal
Extremity Edema:: None: Bilateral:
Escobar Catheter: No
[2025-07-27 19:10] VITALS: BP 147/57; BP 161/62; BP 161/65; PULSE 64; PULSE 68; PULSE 72
[2025-07-27] MEDS: REMERON 7.5 MG PO (21:05)
[2025-07-27] MEDS: FLOMAX 0.4 MG PO (21:05)
[2025-07-27 23:28] VITALS: BP 156/66
[2025-07-28 03:03] VITALS: BP 137/61
[2025-07-28 06:00] VITALS: BMI 25.7
[2025-07-28 07:20] VITALS: BP 141/69
[2025-07-28 07:48] LABS: Blood Urea Nitrogen 55 mg/dl (9-20); Calcium 8.2 mg/dl (8.4-10.2); Carbon Dioxide 27 mmol/L (22-30); Chloride 102 mmol/L (98-107); Estimated Creatinine Clearance 9 ml/min; Glucose 100 mg/dl (70-99); Potassium 4.9 mmol/L (3.5-5.1); Sodium 140 mmol/L (135-145); eGFR 9.14
[2025-07-28] MEDS: COREG 6.25 MG PO (07:53)
[2025-07-28] MEDS: PHOSLO 1334 MG PO ×3 (07:53→17:03)
[2025-07-28] MEDS: COZAAR 25 MG PO (07:53)
[2025-07-28] MEDS: ELIQUIS 2.5 MG PO (07:53)
[2025-07-28] MEDS: LASIX 80 MG PO (07:53)
[2025-07-28] MEDS: ZOLOFT 50 MG PO (07:53)
[2025-07-28] MEDS: NORVASC 5 MG PO (07:53)
[2025-07-28] MEDS: LIPITOR 80 MG PO (07:53)
--- NOTE | 2025-07-28 09:10 | W.PN.HOSP.TC ---
Today's Communication/Plan
-
Discharge to short-term rehab when bed available
Assessment / Plan
Assessment / Plan
HPI: 84y M with PMH significant for ESRD on HD, A-Fib and hypertension who presents to ED complaining of weakness / falls and dyspnea with exertion x 2 days.
Volume Overload
Acute on Chronic HFrEF
ESRD on HD with Missed HD Session
Anion Gap Metabolic Acidosis (? uremia)
Mild Hyperkalemia
- Appreciate nephrology input
- Hyperkalemia resolved status post dialysis 07/25
- Continue usual Lasix dose for now with additional volume management on HD
- Reported dry weight per prior notes is 77kg. Was 79.6 kg upon admission, now back to dry weight of 77.3 kg
- Continue dialysis as per nephrology, usually on Friday//Friday schedule
- Medically stable for discharge to short-term rehab when bed available
Ambulatory Dysfunction
Frequent Falls
Intermittent dizziness
- PT/OT rec SNF - CM informed 07/26
- No evidence of new focal deficits on exam
- Decreased tamsulosin to once daily
- Orthostatic vital signs negative, dizziness resolved
Nonischemic myocardial injury troponin elevation
- Monitor
Paroxysmal Atrial Fibrillation
- Continue metoprolol and Eliquis
Anemia of CKD
- Monitor hemoglobin
Pancytopenia
- Monitor
Anxiety / Depression / Insomnia
- Continue sertraline / mirtazapine.
DVT Prophylaxis: On Eliquis
Code Status: DNR
Total time spent to see the patient on the floor, examine the patient, review data and lab results, discuss treatment plan with patient, nursing staff around 35 minutes.
Physical Exam
General: Appears chronically weak, no acute distress
HEENT: Normocephalic, Atraumatic, EOMI, MMM
Respiratory: Clear to Auscultation bilaterally
Cardiac: Normal S1/S2, Regular Rate and Rhythm
GI: Soft, Nontender, Nondistended, Normal Bowel Sounds
Extremities: No Clubbing, Cyanosis, or Edema
Neuro: Nonfocal/Grossly Intact
Anticipated Discharge: Within 24 hours
Subjective/Interval History
-
Date of Service: July 27, 2025
No recurrence of SOB or LH. No fever, no vomiting.
Objective Data
-
Labs:
Laboratory Results
07/27/25
06:13
WBC 4.4 L
Hgb 9.2 L
Hct 29.7 L
Plt Count 99 L
Sodium 140
Potassium 4.4
Chloride 102
Carbon Dioxide 29
BUN 40 H
Creatinine 4.4 H*
Glucose 97
Calcium 8.2 L
Vital Signs:
Vital Signs
Temp Pulse Resp BP Pulse Ox
97.6 F 65 18 151/59 99
07/27/25 11:00 07/27/25 11:00 07/27/25 11:00 07/27/25 11:00 07/27/25 11:00
I&O
07/26/25 07/27/25 07/28/25
06:59 06:59 06:59
Intake Total 840 / 840 820 / 820
Balance 840 / 840 820 / 820
[2025-07-28 11:15] VITALS: BP 154/63
--- NOTE | 2025-07-28 12:12 | CM ---
CM following for discharge planning to SNF with dialysis. [facility] and [facility] both have dialysis on site. [facility] is offering a bed, however their dialysis unit is not fully open; they would transport pt to/from dialysis until
their unit is complete.
CM to speak with pt's daughter to determine her preference for SNF.
--- NOTE | 2025-07-28 15:24 | W.PN.UPDATE ---
Update Note
Progress Note Update
Patient refusing dialysis today, refusing longterm rehab placement.
Discussed with nephrology, stable for discharge home with home care today.
[2025-07-28 15:30] VITALS: BP 141/51
--- NOTE | 2025-07-28 16:08 | W.PN.NEPH.PH ---
Today's Communication / Plan
-
HD on friday if he still here
Assessment/Plan
-
Impression:
[facility] [place]
[facility]
AV fistula last fistulogram 02/2025
BPH
Anemia of chronic disease/ESRD
CAD/[place]/CABG s/p stent 11/2023
RBBB
Paroxysmal A-fib
Cardiac murmur
Bradycardia due to labetalol
Chronic diastolic CHF
HLD
Depression
Gout
Medical noncompliance (allows only two 3-hour HD treatments weekly)
Chronic dizziness
Poor sleep
Plan:
hemodynamically stable
tolerated HD typically does HD on Friday and Friday by his choice
next one on Friday
pending rehab placement -not sure if he will accept
-
-
Date of Service: July 28, 2025
CC / HPI / ROS
-
Chief Complaint:
ESRD
History of Present Illness:
ESRD Friday but only goes to dialysis once or twice a week
Hemodynamically stable
wt is uup
Review of Systems:
no fever
offers no cp ro sob at rest
on RA
Labs
-
Labs:
WBC 4.4 10^3/uL (4.8-10.8) L 07/27/25 06:13
RBC 3.01 10^6/uL (4.70-6.10) L 07/27/25 06:13
Hgb 9.2 g/dL (13.0-18.0) L 07/27/25 06:13
Hct 29.7 % (39.0-52.0) L 07/27/25 06:13
Plt Count 99 10^3/uL (130-400) L 07/27/25 06:13
Sodium 140 mmol/L (135-145) 07/28/25 06:23
Potassium 4.9 mmol/L (3.5-5.1) 07/28/25 06:23
Chloride 102 mmol/L (98-107) 07/28/25 06:23
Carbon Dioxide 27 mmol/L (22-30) 07/28/25 06:23
BUN 55 mg/dl (9-20) H 07/28/25 06:23
Creatinine 5.7 mg/dL (0.7-1.3) H* 07/28/25 06:23
eGFR 9.14 07/28/25 06:23
Glucose 100 mg/dl (70-99) H 07/28/25 06:23
Calcium 8.2 mg/dl (8.4-10.2) L 07/28/25 06:23
Phosphorus 9.7 mg/dl (2.5-4.5) H 07/25/25 06:31
Albumin 4.5 g/dl (3.5-5.0) 07/24/25 21:49
Physical Exam
-
Vital Signs:
Vital Signs
Temp Pulse Resp BP Pulse Ox
97.7 F 64 16 154/63 99
07/28/25 11:15 07/28/25 11:15 07/28/25 11:15 07/28/25 11:15 07/28/25 11:15
Cardiovascular:: Regular rate and rhythm
Respiratory:: Bilateral: CTA
Lung Excursion:: Normal
Abdomen:: Nontender and Soft
Bowel Sounds:: Normal
Extremity Edema:: None: Bilateral:
Escobar Catheter: No
--- NOTE | 2025-07-28 16:26 | W.DCSUMMARY ---
Discharge Summary
Discharge Data
Date of Admission: 07/25/25
Date of Discharge: 07/28/25
-
Pending Results: No
Hospital Course
Discharge diagnosis:
End-stage renal failure on dialysis
Volume overload
Acute on chronic heart failure with reduced ejection fraction
Hyperkalemia
Ambulatory dysfunction
Frequent falls
Intermittent dizziness
Nonischemic myocardial injury troponin elevation
Paroxysmal atrial fibrillation
Anemia of chronic kidney disease
Pancytopenia
Anxiety/depression/insomnia
Consults: Nephrology
Hospital course:
84-year-old male with a past medical history of renal failure on dialysis //Fri, atrial fibrillation on , CHF, ambulatory dysfunction, anemia, and anxiety/depression was admitted for volume overload and acute on chronic heart failure
secondary to missing his dialysis session on Friday. Patient reports that he was dizzy on Friday, and could not make it to his dialysis session. He was found to be hyperkalemic upon admission. He was seen in conjunction with nephrology, and
dialyzed. His hyperkalemia and shortness of breath resolved.
Patient's dizziness resolved. His orthostatic vital signs were negative. He was seen in conjunction with PT, who recommended short-term rehab. Patient declined short-term rehab.
Patient is supposed to be on a Friday//Friday dialysis schedule. Patient refused dialysis on . Nephrology cleared him discharge. He is discharged home with home care. He needs to attend his usual dialysis sessions on
Friday//Friday, and follow-up with his PCP in 1 week.
Disposition: Home with home care
Discharge planning: Required 34 minutes
Discharge Plan
-
Patient Disposition: Home with Home Care
Discharge Diagnosis/Procedures: Shortness of breath due to missed dialysis, dizziness
Condition: Fair
Diet: 2 Gram Sodium and Other diet
Additional Diets: Low potassium diet
Activity: As tolerated
Driving Restrictions: As prior to admission
Activity Restrictions/Additional Instructions:
It is very important that you keep your dialysis sessions.
Follow-up with your primary care provider in 1 week.
Referrals:
Jose Tamez MD [Family Provider, [facility]] - in one week
Prescriptions:
Continued
Eliquis 2.5 MG tablet
2.5 mg PO BID Qty: 60 0RF
atorvastatin 80 MG tablet
80 mg PO DAILY
tamsulosin 0.4 MG capsule
0.4 mg PO BID
amlodipine 5 mg tablet
5 mg PO DAILY Qty: 30 11RF
furosemide 80 mg Tablet
80 mg PO BID
losartan 25 mg Tablet
25 mg PO DAILY
carvedilol [Coreg] 6.25 mg tablet
6.25 mg PO BID Qty: 90 3RF
sertraline 50 mg Tablet
50 mg PO BID
mirtazapine 7.5 mg Tablet
7.5 mg PO HS
therapeutic multivitamin Tablet
1 tab PO DAILY
calcium acetate 668 mg (169 mg calcium) Tablet
1,336 mg PO AC
Discharge Orders:
Discharge Patient (As Directed); Ordered 07/28/25
Ordered By: Bossman Quiroga
Discharge Date and Time
Discharge Date/Time: 07/28/25 18:44
Print Language: FAROESE
--- NOTE | 2025-07-28 16:29 | CM ---
Pt states his daughter will transport him home via car today. IMM reviewed and pt provided verbal consent.
CM spoke with Mehul's daughter to discuss discharge plans. Daughter asked that I speak with him to determine what he is willing to consider in terms of services. Daughter will not consider the available SNF facilities which are [facility],
[facility].
Pt is known to [facility] and referral sent to [facility] for resumption of services. Do to place order for VN.
Pt states his daughter will transport him home via car today. IMM reviewed and pt provided verbal consent.
[facility]
== END 2025-07-28 18:44 | disposition home health service (06) | DRG 291 ==
LOC: 3 WEST ACU 01:48
PROVIDERS: Emergency Medicine; ADMITTING PHYSICIAN Hospitalist; ATTENDING PHYSICIAN Family Medicine; CONSULT PHYSICIAN Specialist; EMERGENCY PHYSICIAN Emergency Medicine; FAMILY PHYSICIAN Family Medicine
PROC: 5A1D70Z Performance of Urinary Filtration, Intermittent, Less than 6 Hours Per Day (ICD-10-PCS; 2025-07-25)
DX: I13.2 Hypertensive heart and chronic kidney disease with heart failure and with stage 5 chronic kidney disease, or end stage renal disease (principal); I50.23 Acute on chronic systolic (congestive) heart failure; N18.6 End stage renal disease; I69.354 Hemiplegia and hemiparesis following cerebral infarction affecting left non-dominant side; E87.20 Acidosis, unspecified; D61.818 Other pancytopenia; I5A Non-ischemic myocardial injury (non-traumatic); E11.22 Type 2 diabetes mellitus with diabetic chronic kidney disease; D63.1 Anemia in chronic kidney disease; I48.0 Paroxysmal atrial fibrillation; I25.10 Atherosclerotic heart disease of native coronary artery without angina pectoris; E11.36 Type 2 diabetes mellitus with diabetic cataract; R29.6 Repeated falls; E78.00 Pure hypercholesterolemia, unspecified; I45.10 Unspecified right bundle-branch block; I44.0 Atrioventricular block, first degree; E87.5 Hyperkalemia; M19.011 Primary osteoarthritis, right shoulder; F41.9 Anxiety disorder, unspecified; M19.012 Primary osteoarthritis, left shoulder; F51.04 Psychophysiologic insomnia; N40.0 Benign prostatic hyperplasia without lower urinary tract symptoms; I49.3 Ventricular premature depolarization; M10.9 Gout, unspecified; F32.A Depression, unspecified; Z60.8 Other problems related to social environment; Z66 Do not resuscitate; Z79.01 Long term (current) use of anticoagulants; Z91.158 Patient's noncompliance with renal dialysis for other reason; Z99.2 Dependence on renal dialysis; Z95.1 Presence of aortocoronary bypass graft; Z91.81 History of falling; Z82.3 Family history of stroke; I25.2 Old myocardial infarction; Z82.49 Family history of ischemic heart disease and other diseases of the circulatory system; Z95.5 Presence of coronary angioplasty implant and graft; Z87.891 Personal history of nicotine dependence; Z80.52 Family history of malignant neoplasm of bladder; Z87.440 Personal history of urinary (tract) infections; Z86.718 Personal history of other venous thrombosis and embolism; Z79.4 Long term (current) use of insulin
CPT/HCPCS: 70450; 71046; 72125; 73030; 80048; 80053; 82962; 83735; 84100; 84132; 84484; 85025; 85027; 93005; 96374; 96375; 97116; 97163; 97166; 99285; G0257; P9047; Q5106

== ENCOUNTER 2025-09-30 18:42 | Inpatient (IN) | payer MEDICARE, SELFPAY ==
[2025-09-30] VITALS (11 sets, daily range): BP systolic 105–172; BP diastolic 55–65; BMI 25.3; BMI 24.7
[2025-09-30 11:21] LABS: Hematocrit 32.9 % (39.0-52.0); Hemoglobin 10.3 g/dL (13.0-18.0); Mean Corp Hgb Conc. 31.3 g/dL (33.0-37.0); Mean Corpuscular Volume 96.5 fL (80.0-94.0); Platelet Count 156 10^3/uL (130-400); Red Cell Dist. Width 17.8 % (11.5-14.5)
[2025-09-30 11:36] LABS: Absolute Neutrophils -Man Diff 10.7 10^3/uL (1.4-6.5); Anisocytosis 1+; Hypochromasia 1+; Normal RBC Morphology No; Ovalocytes 1+; Platelets Checked Yes; Polychromasia 1+
[2025-09-30 11:37] LABS: Acanthocytes FEW; Total Cells Counted 100
[2025-09-30 11:39] LABS: ALT (SGPT) 47 U/L (0-50); AST (SGOT) 43 U/L (17-59); Albumin 5.0 g/dl (3.5-5.0); Alkaline Phosphatase 121 U/L (38-126); Blood Urea Nitrogen 49 mg/dl (9-20); Calcium 9.3 mg/dl (8.4-10.2); Carbon Dioxide 32 mmol/L (22-30); Chloride 93 mmol/L (98-107); Glucose 143 mg/dl (70-99); Lipase 136 U/L (23-300); Potassium 5.5 mmol/L (3.5-5.1); Sodium 138 mmol/L (135-145); Total Protein 7.8 g/dl (6.3-8.2); eGFR 8.95
[2025-09-30] MEDS: TYLENOL 1000 MG PO (13:39)
[2025-09-30] MEDS: NSS 250 IV (13:48)
--- NOTE | 2025-09-30 14:02 | ED.GENMED ---
History of Present Illness
<Mojgan Wilhelm DO - Last Filed: 09/30/25 17:42>
General
Chief Complaint: Abdominal Pain
Time Seen by Provider: 09/30/25 13:02
<Nasima Lassiter MD, Resident - Last Filed: 09/30/25 15:41>
General
Source: patient and family
History of Present Illness
History of Present Illness:
84-year-old male with past medical history of end-stage renal disease on dialysis, CAD status post CABG x 3, diverticulitis, CHF, atrial fibrillation, CVA presents to the ER abdominal pain. He started to notice some itchiness and abdominal pain 1
week ago localized to the left lower quadrant. The pain is constant, 10 and 10 and nonradiating. Yesterday, he had 10-15 bouts of nonbloody watery diarrhea and 10-15 episodes of nonbloody vomiting. He went to dialysis yesterday regardless. He
denies any fevers or chills. This morning he continued to have nausea, vomiting and diarrhea so he came to the ER for further evaluation. He has no recent sick contacts that he is aware of. No recent antibiotic use. Diarrhea is not smelling. He
otherwise endorses some lightheadedness and dizziness however this has been a chronic issue over the past many months. He denies Chest pain, shortness of breath, numbness or tingling anywhere.
Past History
<Mojgan Wilhelm DO - Last Filed: 09/30/25 17:42>
Past History
ED Past Medical History: Arrthythmia (Atrial fib), CAD, CHF, CVA (Left sided weakness slight), HTN, Hypercholesterolemia, NIDDM, NE, Renal failure (Dialysis Friday and Friday) and Other (TIA 2003, Diverticulosis, Anemia, right central retinal
artery occlusion)
ED Past Surgical History: Cardiac (Cardiac stents, LINQ device placement, CABG) and Other (Cataracts, Left arm fistula)
Social History
Tobacco: Former smoker
Alcohol: None
Personal:
Living: alone
Employment: Retired
Family History
Family History: Other (Reviewed and noncontributory)
Review of Systems
<Nasima Lassiter MD, Resident - Last Filed: 09/30/25 15:41>
Review of Systems
Allergies reviewed?: Yes
Constitutional: Reports no symptoms
EENT: Reports no symptoms
Respiratory: Reports no symptoms
Cardiac: Reports no symptoms
ABD/GI: Reports abdominal pain, nausea, vomiting and diarrhea
: Reports no symptoms
Musculoskeletal: Reports no symptoms
Skin: Reports no symptoms
Neurological: Reports dizzy
Endocrine: Reports no symptoms
Hematologic/Lymphatic: Reports no symptoms
Psychiatric: Reports no symptoms
Phy Exam
<Nasima Lassiter MD, Resident - Last Filed: 09/30/25 15:41>
Physical Exam
Physical Exam:
General: Appears chronically ill
Head: Atraumatic
Eyes: PERRLA
ENT: Dry mucous membranes
Cardiac: Regular S1, S2, murmur noted
Respiratory: Clear breath sounds bilaterally, no wheezes or rails
Abdomen: Left lower quadrant tenderness to palpation, otherwise soft, no guarding or rigidity, nondistended, normal bowel sounds
Extremities: Decreased skin turgor, no peripheral edema
Psych: Calm
Course
<Mojgan Wilhelm, DO - Last Filed: 09/30/25 17:42>
Orders/Labs/Results
Orders:
Orders
09/30/25 11:04
Electrocardiogram (*1) Urgent
Reason for Study: Vertigo / Dizzy
EKG- Treatment ONCE
09/30/25 11:09
Complete Blood Count/With Diff Urgent
Comprehensive Metabolic Panel Urgent
Lipase Urgent
Manual Differential Urgent
09/30/25 13:32
CT Abd/pelvis W Iv Cont Urgent
Comment:
Reason For Exam: LLQ pain, diarrhea
Norovirus by PCR Urgent
DREW Source: Feces/Stool
Specimen Description:
Stool Culture Urgent
DREW Source: Feces/Stool
Specimen Description:
0.9% Sodium Chloride 250 ml [Nss] 250 ml IV BOLUS
09/30/25 13:33
Acetaminophen [Tylenol] 1,000 mg PO NOW STA
09/30/25 13:42
C DIFF [C difficile Antigen & Toxins] Urgent
DREW Source: Feces/Stool
Specimen Description:
09/30/25 13:51
Morphine Sulfate 4 mg IV NOW STA
Abnormal Lab Results
09/30/25
11:09
WBC 12.4 H 10^3/uL
(4.8-10.8)
RBC 3.41 L 10^6/uL
(4.70-6.10)
Hgb 10.3 L g/dL
(13.0-18.0)
Hct 32.9 L %
(39.0-52.0)
MCV 96.5 H fL
(80.0-94.0)
MCHC 31.3 L g/dL
(33.0-37.0)
RDW 17.8 H %
(11.5-14.5)
MPV 10.7 H fL
(7.4-10.4)
Abs Neuts (Manual) 10.7 H 10^3/uL
(1.4-6.5)
Segmented Neutrophils 85 H %
(42-75)
Lymphocytes (Manual) 5 L %
(20-51)
Potassium 5.5 H mmol/L
(3.5-5.1)
Chloride 93 L mmol/L
(98-107)
Carbon Dioxide 32 H mmol/L
(22-30)
BUN 49 H mg/dl
(9-20)
Creatinine 5.8 H* mg/dL
(0.7-1.3)
Glucose 143 H mg/dl
(70-99)
09/30/25 11:09
09/30/25 11:09
Vital Signs
Initial and Last Documented VS:
Initial Vital Signs
Temp Pulse Resp BP Pulse Ox
97.6 F 82 16 143/59 97
09/30/25 11:02 09/30/25 11:02 09/30/25 11:02 09/30/25 11:02 09/30/25 11:02
Last Documented Vital Signs
Temp Pulse Resp BP Pulse Ox
97.6 F 81 14 161/62 93
09/30/25 11:02 09/30/25 14:15 09/30/25 14:15 09/30/25 14:00 09/30/25 14:15
<Nasima Lassiter MD, Resident - Last Filed: 09/30/25 15:41>
Orders/Labs/Results
Orders:
Orders
09/30/25 11:04
Electrocardiogram (*1) Urgent
Reason for Study: Vertigo / Dizzy
EKG- Treatment ONCE
09/30/25 11:09
Complete Blood Count/With Diff Urgent
Comprehensive Metabolic Panel Urgent
Lipase Urgent
Manual Differential Urgent
09/30/25 13:32
CT Abd/pelvis W Iv Cont Urgent
Comment:
Reason For Exam: LLQ pain, diarrhea
Norovirus by PCR Urgent
DREW Source: Feces/Stool
Specimen Description:
Stool Culture Urgent
DREW Source: Feces/Stool
Specimen Description:
0.9% Sodium Chloride 250 ml [Nss] 250 ml IV BOLUS
09/30/25 13:33
Acetaminophen [Tylenol] 1,000 mg PO NOW STA
09/30/25 13:42
C DIFF [C difficile Antigen & Toxins] Urgent
DREW Source: Feces/Stool
Specimen Description:
09/30/25 13:51
Morphine Sulfate 4 mg IV NOW STA
Abnormal Lab Results
09/30/25
11:09
WBC 12.4 H 10^3/uL
(4.8-10.8)
RBC 3.41 L 10^6/uL
(4.70-6.10)
Hgb 10.3 L g/dL
(13.0-18.0)
Hct 32.9 L %
(39.0-52.0)
MCV 96.5 H fL
(80.0-94.0)
MCHC 31.3 L g/dL
(33.0-37.0)
RDW 17.8 H %
(11.5-14.5)
MPV 10.7 H fL
(7.4-10.4)
Abs Neuts (Manual) 10.7 H 10^3/uL
(1.4-6.5)
Segmented Neutrophils 85 H %
(42-75)
Lymphocytes (Manual) 5 L %
(20-51)
Potassium 5.5 H mmol/L
(3.5-5.1)
Chloride 93 L mmol/L
(98-107)
Carbon Dioxide 32 H mmol/L
(22-30)
BUN 49 H mg/dl
(9-20)
Creatinine 5.8 H* mg/dL
(0.7-1.3)
Glucose 143 H mg/dl
(70-99)
09/30/25 11:09
09/30/25 11:09
Vital Signs
Initial and Last Documented VS:
Initial Vital Signs
Temp Pulse Resp BP Pulse Ox
97.6 F 82 16 143/59 97
09/30/25 11:02 09/30/25 11:02 09/30/25 11:02 09/30/25 11:02 09/30/25 11:02
Last Documented Vital Signs
Temp Pulse Resp BP Pulse Ox
97.6 F 81 14 161/62 93
09/30/25 11:02 09/30/25 14:15 09/30/25 14:15 09/30/25 14:00 09/30/25 14:15
<Nasima Lassiter MD, Resident - Last Filed: 09/30/25 15:41>
MDM/Problems Addressed
Differential Diagnosis Includes:
Diverticulitis, norovirus, C. difficile, gastritis, viral colitis, bacterial colitis, pancreatitis, flu, COVID, SBO
MDM/Problems Addressed:
84-year-old male presents to the ER with severe abdominal pain, nausea, vomiting and diarrhea.
Considering he has a history of diverticulitis, highly probable this is a recurrence. Will get abdomen pelvis CT with IV contrast to evaluate. CBC did reveal white count of 12.4. CMP consistent with that of a end-stage renal disease patient on
dialysis. Will also order stool studies, norovirus and C. difficile. With dry oral mucous membranes and decreased skin turgor, give 250 cc bolus. Will avoid larger bolus at this time due to history of CHF and on dialysis. Will provide morphine
for pain.
15:40
Updated daughter that we are still awaiting ab/pelvis CT, but he does have a white count and we are doing stool cultures. Will continue to keep her in the loop.
Chronic conditions affecting care: Other (End-stage renal disease on dialysis, CAD status post CABG x 3, CVA, atrial fibrillation, diverticulitis)
<Mojgan Wilhelm DO - Last Filed: 09/30/25 17:42>
*Pulse Oximetry
SaO2: 98
Oxygen Mode of Delivery: Room air
<Nasima Lassiter MD, Resident - Last Filed: 09/30/25 15:41>
*Pulse Oximetry
Patient hypoxic: no
*Critical Care Note
Total Time (30-74mins, 75-104mins- exclusive of procedures): Not Applicable
Data Reviewed
Review of Other/Old Records Reveals: Labs (07/27/25 hg 9.2) and Radiology Studies (Chest x-ray 07/24/25 Mild pulmonary vascular congestion.)
Source: patient, records and family
ED Attending Note
<Mojgan Wilhelm DO - Last Filed: 09/30/25 17:42>
ED Attending Note
Patient seen and examined by attending physician: Yes
I performed the substantive portion of visit, reviewed & personally made and approve the management plan that is documented in note by myself or BRYAN.: Yes
I performed a history and physical exam of patient and discussed management with resident, I reviewed resident's note and agree with documented findings and plan of care.: Yes
ED Attending Note:
84-year-old male with history of end-stage renal disease on hemodialysis TTS, CHF, CAD status post CABG, anemia, diabetes, hyperlipidemia, hypertension presenting to the emergency department for abdominal pain. Patient reports pain started about a
week ago in the left lower quadrant. He has been taking Tylenol with some relief. Yesterday started with nausea and vomiting. Notes multiple episodes of both, nonbloody. Pain has also been increasing to the left lower quadrant. Denies any
abdominal surgeries in the past. Does note history of diverticulitis, however pain feels differently. Denies any fever. He did have dialysis yesterday, full treatment. Vital signs on arrival are normal.
On exam patient is in no acute distress, resting comfortably. Unremarkable cardiac and pulmonary exam. However on abdominal exam, focal tenderness to left lower quadrant with some voluntary guarding, no rebound. Symptom presentation and physical
exam appears most consistent with likely diverticulitis, particularly given location of pain and prior history. Gastroenteritis or colitis is also a consideration. Plan for laboratory analysis and CT imaging. Will administer morphine for pain.
17:40 -patient's labs do show mild leukocytosis. CT is consistent with enteritis. Given duration of symptoms, will start on antibiotics. Patient is still having some pain and daughter notes concern, patient lives at home alone, has not been
eating or drinking very much, has been increasingly weak. For this reason we will admit to the hospital for continued pain management and treatment.
-
Portions of this chart may have been created with voice recognition software.� Occasional wrong word or��sound alike� substitutions may have occurred due to the inherent limitations of voice recognition software.
Discharge Plan
Departure
Prescriptions:
No Action
Eliquis 2.5 MG tablet
2.5 mg PO BID Qty: 60 0RF
atorvastatin 80 MG tablet
80 mg PO DAILY
tamsulosin 0.4 MG capsule
0.4 mg PO BID
amlodipine 5 mg tablet
5 mg PO DAILY Qty: 30 11RF
furosemide 80 mg Tablet
80 mg PO BID
losartan 25 mg Tablet
25 mg PO DAILY
carvedilol [Coreg] 6.25 mg tablet
6.25 mg PO BID Qty: 90 3RF
therapeutic multivitamin Tablet
1 tab PO DAILY
calcium acetate 668 mg (169 mg calcium) Tablet
1,336 mg PO DAILY
acetaminophen [Tylenol] 325 mg Tablet
650 mg PO Q6HPRN PRN (Reason: mild pain)
loperamide 2 mg Tablet
2 mg PO BIDPRN PRN (Reason: dirrhea)
diphenhydramine HCl [Benadryl] 25 mg Capsule
25 mg PO DAILYPRN PRN (Reason: allergies)
hydroxyzine HCl 10 mg Tablet
10 mg PO HS
Referrals:
Jose Tamez MD [Family Provider, Family Practice]
Interventions
Interventions:
*Risk Screen - Suicide Last Done: 09/30/25 11:05
*General Assessment Last Done: 09/30/25 13:11
*Neglect/Abuse Screening Last Done: 09/30/25 11:05
*ED- Fall Risk Assessment Last Done: 09/30/25 13:11
*ED COVID-19 Vaccine History Last Done: 09/30/25 13:11
*ED Influenza Vaccine History Last Done: 09/30/25 13:11
TT-Pdregs-Ycusgbzine Assessment Last Done: 09/30/25 13:49
Discharge Date and Time
Print Language: WELSH
[2025-09-30] MEDS: MORPHINE SULFATE 4 MG IV (14:07)
--- NOTE | 2025-09-30 15:30 | EDRN ---
Report received, introduced myself to patient he is aware he is waiting to go to CT, asked for more water, provided for patient who has been tolerating water without issues.
--- NOTE | 2025-09-30 17:54 | HPS.HSE ---
Addendum entered and electronically signed by Clem Nance MD 09/30/25 19:05:
This is an addendum to H&P written by Gi Richard on 09/30/2025. �Patient seen and examined independently with G[employer]ER.
84-year-old male past medical history of ESRD on hemodialysis, CAD status post CABG x 3, right bundle branch block, chronic HFrEF, paroxysmal atrial fibrillation on Eliquis, anemia of CKD, pancytopenia, anxiety/depression, insomnia, hyperlipidemia,
presenting with left lower quadrant abdominal pain. �10-15 bouts of nonbloody watery diarrhea and vomiting yesterday. �No fevers or chills.
Vital signs unremarkable.
Labs show�leukocytosis. �Stable anemia of 10.3. �Potassium 5.5.
EKG shows chronic T wave inversions, QTc 490 improved from previously.
CT abdomen pelvis shows some nondistended fluid-filled loops of small bowel and liquid stool particularly in the right colon suggestive of enteritis.
Patient with acute enteritis. �Check stool studies for n.p.o., IV fluids given, Zosyn. �Hold Lasix and further fluid. �Nephro consulted for hemodialysis.
Mild hyperkalemia so hold losartan for now.
Original Note:
Family Physician
-
Family Physician: Jose Tamez
Chief Complaint
-
Watery brown diarrhea, vomiting liquid in color
History of Present Illness
84-year-old male complaining of left lower quadrant abdominal pain x 1 week with 10-15 episodes of watery brown diarrhea and vomiting yesterday and today. The patient denies blood or mucus in watery brown diarrhea. Denies hematic emesis. Despite
GI symptoms he did have regular dialysis session yesterday. He does report feeling somewhat lightheaded and dizzy. In the ER he has had no vomiting since 3 PM is able to tolerate water. He does complain of left lower quadrant abdominal pain which
is better after morphine and Tylenol. Patient lives alone in his home. He was brought to the ER today by his daughter. He denies fever, chills, sick contacts, antibiotics, chest pain, palpitations, cough, shortness of breath, rash. He had CT in
ER showing enteritis. He has past medical history of 1 month diarrhea in March 2025 that was negative, ESRD on dialysis Friday, patient does make urine daily cardiac murmur, CAD/DC/CABG x 3 vessel, 2D echo 03/02/2025 EF 50-55%,
normal LVS LVSF, mild LVH, mild inferior septal hypokinesis, stage I diastolic dysfunction, severely dilated LA, moderate MR, mild TR, PASP 22 mmHg, Stent March 2017, drug-eluting stent, multiple stents and PCI 2 stents to circumflex and PDA on
05/26/2008, 07/31/2011, CABG x 3 vessel GALVEZ to LAD, vein graft OM 2 sequential to OM [address] Wilkes 05/19/2017, RBBB, Paroxysmal A-fib, Bradycardia due to labetalol, , Anemia of chronic disease, Benign HTN, CVA with left-sided weakness, Dizziness, HLD,
Depression
Medical History
Past Medical History
Past Medical History: Reports Other
Additional Past Medical History:
Cardiac murmur
Cardiac stents�Stent March 2017, drug-eluting stent, multiple stents and PCI 2 stents to circumflex and PDA on 05/26/2008, 07/31/2011
CAD/DC/CABG x 3 vessel 05/19/2017 GALVEZ to LAD, vein graft OM 2 sequential to OM [address] Wilkes 05/19/2017
2D echo 03/02/2025 EF 50-55%, normal LVS LVSF, mild LVH, mild inferior septal hypokinesis, stage I diastolic dysfunction, severely dilated LA, moderate MR, mild TR, PASP 22 mmHg
Stent coronary artery
RBBB
Paroxysmal A-fib
Bradycardia due to labetalol
ESRD on HD Friday, Friday�patient does make urine daily
Anemia of chronic disease
Benign HTN
CVA with left-sided weakness
Dizziness
HLD
Depression
Diverticulosis descending and sigmoid colon per CT 09/30/2025
Past Surgical History: Reports Other
Additional Past Surgical History:
Stent March 2017, drug-eluting stent, multiple stents and PCI 2 stents to circumflex and PDA on 05/26/2008, 07/31/2011
CABG x 3 vessel GALVEZ to LAD, vein graft OM 2 sequential to OM [address] Wilkes 05/19/2017
AV fistula 11/03/2020, left arm fistulogram 01/05/2021, 04/13/2021
Stenting left upper extremity brachiocephalic fistula venous outflow stenosis Dr. Escobar 02/08/2022
Balloon angioplasty proximal venous stenosis of the left upper arm AV fistula Dr. Escobar 02/04/2023
Social History
Tobacco: Non-smoker
Alcohol: None
Drug: None
Personal: Single
Living: Alone
Employment: Retired
Family History
Family History: Other (Father age 61 DC Mother age 70 CVA Son from suicide Son bladder cancer)
Allergies / Home Medications
Allergies reflects when Allergies were last updated in [employer].
Home Medications with original date entered in [employer]
Allergy/Medication List:
Allergies
Allergy/AdvReac Type Severity Reaction Status Date / Time
No Known Allergies Allergy Verified 05/28/25 03:54
Home Medications
apixaban 2.5 mg tablet (Eliquis) 2.5 mg PO BID blood thinner #60 tabs 05/12/21
atorvastatin 80 mg tablet 80 mg PO DAILY High cholesterol 01/03/22
tamsulosin 0.4 mg capsule 0.4 mg PO BID Urinary issue 02/08/22
amlodipine 5 mg tablet 5 mg PO DAILY Blood pressure #30 tabs 12/16/23
furosemide 80 mg tablet 80 mg PO BID Fluid Retention/Swelling 01/06/24
losartan 25 mg tablet 25 mg PO DAILY Blood Pressure 01/06/24
carvedilol 6.25 mg tablet (Coreg) 6.25 mg PO BID #90 tabs 01/09/24
calcium acetate 668 mg (169 mg calcium) tablet 1,336 mg PO DAILY hyperphosphatemia 07/04/25
therapeutic multivitamin 1 tab PO DAILY Supplement 07/04/25
acetaminophen 325 mg tablet (Tylenol) 650 mg PO Q6HPRN PRN mild pain 09/30/25
diphenhydramine HCl 25 mg capsule (Benadryl) 25 mg PO DAILYPRN PRN allergies 09/30/25
hydroxyzine HCl 10 mg tablet 10 mg PO HS 09/30/25
loperamide 2 mg tablet 2 mg PO BIDPRN PRN dirrhea 09/30/25
Review of Systems
-
History Source: Patient
A 12 point ROS was completed and negative except as noted: Yes
Constitutional: Denies Fever or Chills
EENT: Denies Sore Throat or Runny Nose
Respiratory: Denies Cough or Trouble Breathing
Cardiac: Denies Chest Pain, Diaphoresis, Palpitations or Syncope
Abdomen/GI: Reports Abdominal Pain (Left lower quadrant), Nausea, Vomiting and Diarrhea (Watery brown); Denies Constipated, Bloody Stools or Black Stools
: Denies Dysuria, Frequency, Flank Pain, Incontinence, Difficulty Voiding or Urgency
Musculoskeletal: Denies Joint Pain or Edema
Skin: Denies Itching or Rash
Neurological: Reports Dizzy; Denies Headache or Weakness
Endocrine: Reports No Symptoms
Hematologic/Lymphatic: Reports No Symptoms
Psych: Reports Calm
Physical Exam
Vital Signs
Vital Signs
Temp Pulse Resp BP Pulse Ox
97.6 F 81 14 161/62 93
09/30/25 11:02 09/30/25 14:15 09/30/25 14:15 09/30/25 14:00 09/30/25 14:15
Physical Exam
General: No Fever or Chills
HEENT: NormoCephalic, Anicteric, Moist mucous membranes, PERRLA, [place] Conjunctivae and No Ptosis
Respiratory: Clear; No Wheezes, Rales or Rhonchi
Cardiac: S1/S2 and Regular Rhythm; No Murmur, Rub, Gallop or Peripheral Edema
GI: Non Distended, Normal Bowel Sounds, Tender (Left lower quadrant) and No Hepatosplenomegaly
Genito-urinary: Deferred by me
Musculoskeletal: No Clubbing, No Cyanosis and No Edema
Skin: Warm and Dry; No Rash
Neuro: AO x 3, No Motor Deficits, Nonfocal/grossly intact, Cranial Nerves Intact and No Sensory Deficits; No Slurred Speech, Facial Droop, Tremors or Sedated
Psych: Calm
Laboratory Results
-
09/30/25 11:09
09/30/25 11:09
Laboratory Results
Total Bilirubin 0.8 mg/dl (0.2-1.3) 09/30/25 11:09
AST 43 U/L (17-59) 09/30/25 11:09
ALT 47 U/L (0-50) 09/30/25 11:09
Alkaline Phosphatase 121 U/L (38-126) 09/30/25 11:09
Lipase 136 U/L (23-300) 09/30/25 11:09
Data Reviewed
-
CT Scan: Report Reviewed by me
Lab Data: Labs Reviewed by me
Impression/Plan
-
Impression/plan:
Admit to telemetry
#Acute enteritis with watery diarrhea/vomiting
#History of 1 month diarrhea March 2025 with negative cultures negative C. difficile
#History of watery diarrhea and vomiting since yesterday no recent constipation
#History of diverticulosis descending sigmoid colon on CT
-Check stool cultures, C. difficile
- IV Zosyn
- Patient was given Rocephin/Flagyl in ER
-Patient was given 500 cc bolus NSS in ER will hold further fluids
-Hold Lasix 80 mg twice daily
- IV Phenergan in place of Zofran due to slight prolonged QTc
- Clear liquid diet as is tolerating water in ER for several hours
EKG NSR RBBB known heart rate 82 bpm, QTc B490 MS(improved from 530 July 2025), Chronic T wave inversions in all leads
CT abdomen pelvis: 1. Limited evaluation of intestinal tract without oral contrast with some nondistended fluid-filled loops of small bowel and some liquid stool particularly in the right colon,
intestinal tract nonobstructed. No free air. Findings overall could represent ENTERITIS.
2. Diverticulosis of the descending and sigmoid colon.
3. Relative atrophic kidneys bilaterally non-excreting. Small right renal nonobstructing calculi versus atherosclerotic vascular calcification. Small simple right renal cysts.
Additional bilateral subcentimeter low-attenuation renal lesions too small to characterize.
#ESRD on HD Friday
#AV fistula 11/03/2020, left arm fistulogram 01/05/2021, 04/13/2021
#Stenting left upper extremity brachiocephalic fistula venous outflow stenosis Dr. Escobar 02/08/2022
#Balloon angioplasty proximal venous stenosis of the left upper arm AV fistula Dr. Escobar 02/04/2023
Had full session yesterday 09/29/2025
-Creat 5.8, bun 48
- patient follows with Dr. aVrgas
- Consult Nephro Dr. Hammond aware
# Mild hyperkalemia
K5.4
Will hold losartan at current time
-follow BMP
#Chronic ambulatory dysfunction with falls recent/bilateral hearing loss left greater than right concern possible CVA versus orthostatic hypotension due to dialysis/chronic diarrhea volume depletion
fall 3
#CVA in 1999 with left arm weakness can only lift to the level of the shoulder. Chronic lacunar infarcts bilateral cochran radiata, right basal ganglia, right thalamus
# Chronic dizziness
-Check orthostatics, PT/OT/case management
#Benign HTN
BP 161/62
-Continue Coreg 6.25 mg p.o. twice daily, amlodipine 5 mg daily with hold parameters
Hold losartan
#BPH
-Continue tamsulosin 0.4 mg p.o. twice daily with hold parameters
#Anemia of chronic disease/ESRD
Hgb 10.3 baseline appears 07-28
#CAD/DC/CABG
#Stent March 2017, drug-eluting stent, multiple stents and PCI 2 stents to circumflex and PDA on 05/26/2008, 07/31/2011
#CABG x 3 vessel GALVEZ to LAD, vein graft OM 2 sequential to OM [address] Wilkes 05/19/2017
-Continue atorvastatin, Coreg 6.25 mg twice daily, Eliquis 2.5 mg twice daily
2D echo 03/02/2025 EF 50-55%, normal LVS LVSF, mild LVH, mild inferior septal hypokinesis, stage I diastolic dysfunction, severely dilated LA, moderate MR, mild TR, PASP 22 mmHg
#RBBB
#Paroxysmal A-fib
#Cardiac murmur
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
- Continue Eliquis 2.5 mg twice daily, Coreg 6.25 mg twice daily
#Chronic diastolic CHF
I/O, daily weights
-Hold Lasix 80 mg twice daily with hold parameters
#HLD
Continue atorvastatin
#Depression
Continue Zoloft 50 mg twice daily, mirtazapine 7.5 mg at bedtime
DVT prophylaxis
Continue Eliquis 2.5 mg twice daily
DNR per patient
[2025-09-30] MEDS: FLAGYL 500 MG 100 IV (18:03)
[2025-09-30] MEDS: ROCEPHIN 1000 MG IV (18:03)
--- NOTE | 2025-09-30 18:08 | EDRN ---
CORINA Angelo at bedside working on admission
[2025-09-30] MEDS: ATARAX 10 MG PO (21:22)
[2025-09-30] MEDS: COREG 6.25 MG PO (21:22)
[2025-09-30] MEDS: FLOMAX 0.4 MG PO (21:22)
[2025-09-30] MEDS: ELIQUIS 2.5 MG PO (21:22)
[2025-09-30] MEDS: ZOSYN 50 IV (21:23)
[2025-09-30] MEDS: MORPHINE SULFATE 2 MG IV (21:24)
--- NOTE | 2025-09-30 21:40 | PTCARENOTE ---
Pt arrived to unit at 2019-pt ambulated to bed without assist-gait steady & erect posture. Pt complaining LLQ abd pain-See JAN. Pt given HS medications-See JAN. Pt reports some weakness to LE-notified to ring prior to ambulation d/t weakness-patient
is agreeable to this at this time. Plan for HD 10/01. Pt denies recent N/V/D at this time. Bed in lowest position and locked, call linn within reach, pt without further concerns at this time.
[2025-10-01 03:36] VITALS: BP 144/63
[2025-10-01] MEDS: ZOSYN 50 IV ×3 (03:47→19:35)
[2025-10-01 06:00] VITALS: BMI 24.8
[2025-10-01 07:45] VITALS: BP 148/55
[2025-10-01] MEDS: BENADRYL 25 MG PO (08:08)
[2025-10-01 08:14] LABS: Hematocrit 27.8 % (39.0-52.0); Hemoglobin 8.6 g/dL (13.0-18.0); Mean Corp Hgb Conc. 30.9 g/dL (33.0-37.0); Mean Corpuscular Volume 98.2 fL (80.0-94.0); Platelet Count 140 10^3/uL (130-400); Red Cell Dist. Width 17.5 % (11.5-14.5)
[2025-10-01 08:31] LABS: ALT (SGPT) 42 U/L (0-50); AST (SGOT) 31 U/L (17-59); Albumin 3.9 g/dl (3.5-5.0); Alkaline Phosphatase 96 U/L (38-126); Blood Urea Nitrogen 58 mg/dl (9-20); Calcium 8.0 mg/dl (8.4-10.2); Carbon Dioxide 25 mmol/L (22-30); Chloride 93 mmol/L (98-107); Estimated Creatinine Clearance 8 ml/min; Glucose 102 mg/dl (70-99); Magnesium 2.1 mg/dl (1.6-2.3); Potassium 5.2 mmol/L (3.5-5.1); Sodium 131 mmol/L (135-145); Total Protein 6.2 g/dl (6.3-8.2); eGFR 6.90
--- NOTE | 2025-10-01 09:09 | W.PN.HOSP.TC ---
Addendum entered and electronically signed by Natanael Apodaca MD 10/01/25 11:07:
Attending�addendum:
I saw and evaluated the patient. I reviewed the resident�s note and agree with findings and plan as documented in the resident�s note.��patient seen and examined at bedside, denies any more diarrhea, complaining of mild nausea and overall itching,
no abdominal pain or vomiting.
Physical�exam:
GENERAL : Patient is awake, alert, oriented x3
HEENT: Nonicteric sclerae, PERRLA, EOMI. Oropharynx clear. Moist mucous membranes. Conjunctivae appear well perfused.
CHEST: Chest wall is nontender.
HEART: Regular rate and rhythm without murmurs.
LUNGS: Clear to auscultation bilaterally.
ABDOMEN: Soft, positive bowel sounds, nontender, no organomegaly.
RECTAL: Deferred.
MUSCLES/EXTREMITIES: Left arm AV fistula
NEUROLOGIC: Cranial nerves II-XII intact without motor/sensory deficit.
�
Assessment/plan:
Acute enteritis.
Continue Zosyn.
Pending stool studies
End-stage renal disease on dialysis.
Hyperkalemia.
Appreciate nephrology input
Anemia of chronic disease.
Stable
CODE STATUS: DNR
DVT prophylaxis: Eliquis
Diet: Renal/low residual
Disposition: Advance diet
�
Total time spent on today�s encounter was 51 minutes which included time spent in counseling the patient/family regarding diagnosis and treatment plan as listed above, goals of care, and symptom management. Case was discussed with nursing staff,
specialists, and care coordinators/case management. All labs and imaging personally reviewed by me. Remainder the time spent in detailed review of previous records, lab data, imaging, and other medical provider documentation.
Original Note:
Today's Communication/Plan
-
Continue Zosyn
Pending stool studies
Switch to Tigan
Nephrology following. Hemodialysis today 10/01
Trend CBC, BMP
Assessment / Plan
Assessment / Plan
Impression:
An 84-year-old male with a past medical history significant for ESRD on hemodialysis (Friday//Friday), coronary artery disease s/p CABG x 3, chronic HFrEF, paroxysmal atrial fibrillation on Eliquis, anemia of CKD, hypertension,
hyperlipidemia, BPH, depression/anxiety presented to the ED with left lower quadrant abdominal pain with associated vomiting and watery diarrhea. Found to have enteritis on CT.
PLAN:
# Left lower quadrant abdominal pain/acute enteritis
CT abdomen/pelvis: Nondistended fluid-filled small bowel loops; liquid stool in right colon suggestive of enteritis
WBC 12.4 on arrival. Afebrile.
History of month-long diarrhea earlier this year with negative infectious workup
Continue Zosyn
IV Phenergan for nausea due to prolonged QTc-patient still nauseous 10/01. Switched to Tigan 100 mg PRN
Avoid further IV fluids due to ESRD and heart failure
Stool studies/cultures, C. difficile pending
Low residue diet
# ESRD on hemodialysis
# Hyperkalemia
Friday, , Friday schedule
Initial creatinine 5.9, BUN 48
Hyperkalemia K 5.5�losartan held
Follows up outpatient with Dr. Brown
Nephrology consulted for hemodialysis management. Getting hemodialysis 10/01/2025
Trend BMP daily
# Anemia of chronic kidney disease
Hgb 10.3; baseline -
Trend CBC
# Chronic ambulatory dysfunction
# Recurrent falls
# Bilateral hearing loss
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
Chronic dizziness may multifactorial-deconditioning versus hearing impairment versus orthostasis
PT/OT following
Orthostats
Case management for dispo planning
# Essential hypertension
Continue Coreg 6.25 mg twice daily, and amlodipine 5 mg with hold parameters
Losartan held due to hyperkalemia
# Paroxysmal atrial fibrillation
# Right bundle branch block
EKG showed chronic T wave inversions, QTc 490 (improved from prior)
Continue Eliquis 2.5 mg twice daily, Coreg 6.25 mg twice daily
Monitor telemetry for arrhythmia
# Chronic heart failure
Holding diuretics due to GI illness and ESRD
Daily weights, strict I/Os
Monitor for volume overload
# BPH
Continue tamsulosin
# Hyperlipidemia
Continue atorvastatin
# Depression
# Anxiety
# Insomnia
Continue Zoloft 50 mg twice daily, mirtazapine 7.5 mg nightly
CODE STATUS: DNR
DVT prophylaxis: Eliquis
Disposition: Pending clinical improvement, infectious workup, PT/OT recommendations
Anticipated Discharge: > 48 hours
Subjective/Interval History
-
Date of Service: October 01, 2025
Patient evaluated at bedside this morning. He states he still feels nauseous despite getting antiemetics. Slightly feeling short of breath, no other complaints.
Objective Data
-
Labs:
Laboratory Results
10/01/25
06:22
WBC 13.0 H
Hgb 8.6 L
Hct 27.8 L
Plt Count 140
Sodium 131 L
Potassium 5.2 H
Chloride 93 L
Carbon Dioxide 25
BUN 58 H
Creatinine 7.2 H*
Glucose 102 H
Calcium 8.0 L
Total Bilirubin 0.7
AST 31
ALT 42
Alkaline Phosphatase 96
Vital Signs:
Vital Signs
Temp Pulse Resp BP Pulse Ox
97.3 F 77 16 148/55 96
10/01/25 07:45 10/01/25 07:45 10/01/25 07:45 10/01/25 07:45 10/01/25 07:45
I&O
09/30/25 10/01/25 10/02/25
06:59 06:59 06:59
Intake Total 1060 / 1060
Balance 1060 / 1060
Review of Systems
-
History Source: Patient
Constitutional: Reports Fatigue
EENT: Reports No Symptoms Reported
Respiratory: Reports Trouble Breathing
Cardiac: Reports No Symptoms
Abdomen/GI: Reports Nausea
Musculoskeletal: Reports No Symptoms
Skin: Reports No Symptoms
Neuro: Reports No Symptoms
Endocrine: Reports No Symptoms
Hematologic / Lymphatic: Reports No Symptoms
Allergy / Immunology: Reports No Symptoms
Physical Exam
-
General: Well Developed, Well Nourished and Appears in Distress (Mild)
HEENT: Normocephalic, Atraumatic, Moist Mucous Membranes and Anicteric
Respiratory: Clear to Auscultation
GI: Soft, Nondistended, Normal Bowel Sounds and Tender (LLQ)
Musculoskeletal: No Clubbing, No Cyanosis and No Edema
Skin: Warm
Neuro: Awake and AO x 3
Psych: Calm and Intact Judgement/Insight
Data Reviewed
-
CT Scan: Report Reviewed by me and Discussed with Physician
Labs: Labs Reviewed by me, Discussed with Physician and Discussed with Patient
Old Records: Reviewed
[2025-10-01] MEDS: RETACRIT 2000 UNITS IV (10:01)
--- NOTE | 2025-10-01 10:24 | W.CON.NEPH ---
Consultation
-
Date/Time Consultation Requested: 09/30/25 1816
Date/Time Consultation Performed: 10/01/25 0945
Requesting Provider: Dr Clem Nance
Performing Provider: Anastacia Wall
Reason for Consultation: ESRD
Medical History
-
Chief Complaint: Abd pain and diarrhea
History of Present Illness:
84-year-old male with PMH of hypertension, ESRD on TTS through AVF with better compliance lately, ROB therapy on dialysis for his anemia of chronic kidney disease and is chronically anticoagulated for paroxysmal A-fib. His past medical history also
includes CAD status post PCI to the RCA. He is also status post CABG in 2017, CVA presented to ER on 09/30 with complaining of left lower quadrant abdominal pain x 1 week with 10-15 episodes of watery brown diarrhea and vomiting with decreased po
intake. Denies hematemesis or blood in stools. He does report feeling somewhat lightheaded and dizzy likely more than baseline. He denies fever, chills, sick contacts, antibiotics, chest pain, cough, shortness of breath. He had CT in ER showing
enteritis. Nephrology asked for ESRd and HD needs.
Past Medical History
Status post RCA stent on 11/26/23
ESRD TTS [facility] in [place]
Diarrhea chronic
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
Hypertension
Atrial fibrillation
BPH
Anemia of CKD
CAD/CABG 2016
Cerebrovascular disease
TIA 2002
History ESBL Klebsiella pneumoniae UTI
Gout
Medical noncompliance (allows only two 3-hour HD treatments weekly)
Past Surgical History: Other (Stent March 2017, drug-eluting stent, multiple stents and PCI 2 stents to circumflex and PDA on 05/26/2008, 07/31/2011 CABG x 3 vessel GALVEZ to LAD, vein graft OM 2 sequential to OM [address] Wilkes 05/19/2017 AV fistula
11/03/2020, left arm fistulogram 01/05/2021, 04/13/2021 Stenting left upper extremity brachi)
Social History
Tobacco: Former Smoker
Alcohol: None
Family History
no ckd
Family History: Not Pertinent
Allergies / Home Medications
Allergy/AdvReac Type Severity Reaction Status Date / Time
No Known Allergies Allergy Verified 05/28/25 03:54
�Medication �Instructions �Recorded �Confirmed �Type
apixaban 2.5 mg tablet (Eliquis) 2.5 mg PO BID blood thinner #60 05/12/21 09/30/25 Rx
tabs
atorvastatin 80 mg tablet 80 mg PO DAILY High cholesterol 01/03/22 09/30/25 History
tamsulosin 0.4 mg capsule 0.4 mg PO BID Urinary issue 02/08/22 09/30/25 History
amlodipine 5 mg tablet 5 mg PO DAILY Blood pressure #30 12/16/23 09/30/25 Rx
tabs
furosemide 80 mg tablet 80 mg PO BID Fluid 01/06/24 09/30/25 History
Retention/Swelling
losartan 25 mg tablet 25 mg PO DAILY Blood Pressure 01/06/24 09/30/25 History
carvedilol 6.25 mg tablet (Coreg) 6.25 mg PO BID #90 tabs 01/09/24 09/30/25 Rx
calcium acetate 668 mg (169 mg 1,336 mg PO DAILY hyperphosphatemia 07/04/25 09/30/25 History
calcium) tablet
therapeutic multivitamin 1 tab PO DAILY Supplement 07/04/25 09/30/25 History
acetaminophen 325 mg tablet 650 mg PO Q6HPRN PRN mild pain 09/30/25 09/30/25 History
(Tylenol)
diphenhydramine HCl 25 mg capsule 25 mg PO DAILYPRN PRN allergies 09/30/25 09/30/25 History
(Benadryl)
hydroxyzine HCl 10 mg tablet 10 mg PO HS Sleep 09/30/25 09/30/25 History
loperamide 2 mg tablet 2 mg PO BIDPRN PRN dirrhea 09/30/25 09/30/25 History
Review of Systems
-
All other systems: Negative unless noted
Physical Exam
Vital Signs
Vital Signs
Temp Pulse Resp BP Pulse Ox
97.3 F 77 16 148/55 96
10/01/25 07:45 10/01/25 07:45 10/01/25 07:45 10/01/25 07:45 10/01/25 07:45
Lab Results
WBC 13.0 10^3/uL (4.8-10.8) H 10/01/25 06:22
RBC 2.83 10^6/uL (4.70-6.10) L 10/01/25 06:22
Hgb 8.6 g/dL (13.0-18.0) L 10/01/25 06:22
Hct 27.8 % (39.0-52.0) L 10/01/25 06:22
Plt Count 140 10^3/uL (130-400) 10/01/25 06:22
Sodium 131 mmol/L (135-145) L 10/01/25 06:22
Potassium 5.2 mmol/L (3.5-5.1) H 10/01/25 06:22
Chloride 93 mmol/L (98-107) L 10/01/25 06:22
Carbon Dioxide 25 mmol/L (22-30) 10/01/25 06:22
BUN 58 mg/dl (9-20) H 10/01/25 06:22
Creatinine 7.2 mg/dL (0.7-1.3) H* 10/01/25 06:22
eGFR 6.90 10/01/25 06:22
Glucose 102 mg/dl (70-99) H 10/01/25 06:22
Calcium 8.0 mg/dl (8.4-10.2) L 10/01/25 06:22
Phosphorus 5.9 mg/dl (2.5-4.5) H 10/01/25 06:22
Albumin 3.9 g/dl (3.5-5.0) 10/01/25 06:22
Physical Exam
General: Awake, Alert, Oriented and AOx3
HEENT: EOMI, Anicteric, Conjunctivae Clear and Facial Symmetry
Respiratory: Clear, Normal Excursion and Nonlabored Respirations
Cardiac: S1/S2, Regular Rate/Rhythm and Murmur
Breast: Deferred by me
Abdomen: Soft and Other (TTP lower abd)
Rectal: Deferred by Provider
Musculoskeletal: No Cyanosis and No Edema
Skin: No Rash
Neuro: Nonfocal/Grossly Intact
Psych: Insight/judgement good and Appropriate
Vascular Access: AVF
Data Reviewed
-
Labs: Labs Reviewed by me and Discussed with Patient
Assessment/Plan
-
Impression:
Acute enteritis with watery diarrhea/vomiting
Mild hyperkalemia
ESRD TTS [facility] in [place]
HTN
AV fistula last fistulogram 02/2025
BPH
Anemia of chronic disease/ESRD
CAD/CO/CABG s/p stent 11/2023
RBBB
Paroxysmal A-fib
Cardiac murmur
Bradycardia due to labetalol
Chronic diastolic CHF
HLD
Depression
Gout
Chronic dizziness
Poor sleep
Hypoantremia
Plan:
A/w abd pain and diarrhea, CT noted enteritis
hemodynamically stable
HD today as per schedule
resume home meds including phoslo
abx per primary
[2025-10-01 11:01] LABS: Nucleated Red Blood Cells % 0 % (-)
[2025-10-01] MEDS: MORPHINE SULFATE 2 MG IV (11:04)
--- NOTE | 2025-10-01 11:19 | W.PN.NEPH.HD ---
Assessment
-
pt seen during HD
vitals stable
no sig UF needed , close to EDW
AVF functions fine
Progress Note - Hemodialysis
-
Date of Service: October 01, 2025
Duration: 3 hours
Potassium Bath: 2
Calcium Bath: 2.5
Opti-Dialyzer: 160
Ultrafiltration: Other (0.5kg)
Blood Flow: 400
Dialysate Flow: 600
Heparin: no
EPO: 2000
[2025-10-01] MEDS: PHOSLO 1334 MG PO (14:30)
[2025-10-01] MEDS: LIPITOR 80 MG PO (14:30)
[2025-10-01] MEDS: THERAGRAN 1 TABLET PO (14:31)
[2025-10-01] MEDS: COREG 6.25 MG PO ×2 (14:31→20:53)
[2025-10-01] MEDS: FLOMAX 0.4 MG PO ×2 (14:31→19:35)
[2025-10-01] MEDS: ELIQUIS 2.5 MG PO ×2 (14:31→19:35)
[2025-10-01] MEDS: NORVASC 5 MG PO (14:31)
[2025-10-01 15:43] VITALS: BP 145/67
[2025-10-01 19:34] VITALS: BP 147/60
[2025-10-01] MEDS: ATARAX 10 MG PO (20:52)
[2025-10-01 23:49] VITALS: BP 125/52
[2025-10-02] VITALS (8 sets, daily range): BP systolic 99–147; BP diastolic 52–76; PULSE 76–77; O2SAT 95–98; BMI 25.0
[2025-10-02] MEDS: ZOSYN 50 IV ×3 (04:41→20:34)
[2025-10-02 07:09] LABS: ALT (SGPT) 83 U/L (0-50); AST (SGOT) 63 U/L (17-59); Albumin 3.5 g/dl (3.5-5.0); Alkaline Phosphatase 88 U/L (38-126); Blood Urea Nitrogen 36 mg/dl (9-20); Calcium 8.2 mg/dl (8.4-10.2); Carbon Dioxide 29 mmol/L (22-30); Chloride 95 mmol/L (98-107); Estimated Creatinine Clearance 10 ml/min; Glucose 113 mg/dl (70-99); Potassium 4.4 mmol/L (3.5-5.1); Sodium 134 mmol/L (135-145); Total Protein 5.9 g/dl (6.3-8.2); eGFR 9.54
--- NOTE | 2025-10-02 07:27 | W.PN.HOSP.TC ---
Addendum entered and electronically signed by Natanael Apodaca MD 10/02/25 11:09:
Attending�addendum:
I saw and evaluated the patient. I reviewed the resident�s note and agree with findings and plan as documented in the resident�s note.��patient seen and examined at bedside, denies any more diarrhea, complaining of mild nausea and itching, patient
still complaining of abdominal pain, no vomiting.
Physical�exam:
GENERAL : Patient is awake, alert, oriented x3
HEENT: Nonicteric sclerae, PERRLA, EOMI. Oropharynx clear. Moist mucous membranes. Conjunctivae appear well perfused.
CHEST: Chest wall is nontender.
HEART: Regular rate and rhythm without murmurs.
LUNGS: Clear to auscultation bilaterally.
ABDOMEN: Soft, positive bowel sounds, nontender, no organomegaly.
RECTAL: Deferred.
MUSCLES/EXTREMITIES: Left arm AV fistula
NEUROLOGIC: Cranial nerves II-XII intact without motor/sensory deficit.
�
Assessment/plan:
Acute enteritis.
Continue Zosyn.
Pending stool studies (no bowel movement since admission)
End-stage renal disease on dialysis.
Hyperkalemia.
Appreciate nephrology input
Anemia of chronic disease.
Stable
CODE STATUS: DNR
DVT prophylaxis: Eliquis
Diet: Renal/low residual
Disposition: Bentyl, continue Zosyn
�
Total time spent on today�s encounter was 51 minutes which included time spent in counseling the patient/family regarding diagnosis and treatment plan as listed above, goals of care, and symptom management. Case was discussed with nursing staff,
specialists, and care coordinators/case management. All labs and imaging personally reviewed by me. Remainder the time spent in detailed review of previous records, lab data, imaging, and other medical provider documentation.
Original Note:
Documented by User: Bernadette Haley MD, Resident 10/02/25 11:04
Today's Communication/Plan
-
Continue IV Zosyn
Pantoprazole 40 mg daily
Trend CBC and BMP
Nephrology following
Assessment / Plan
Assessment / Plan
Impression:
An 84-year-old male with a past medical history significant for ESRD on hemodialysis (Friday//Friday), coronary artery disease s/p CABG x 3, chronic HFrEF, paroxysmal atrial fibrillation on Eliquis, anemia of chronic disease (CKD),
hypertension, hyperlipidemia, BPH, depression/anxiety presented to the ED with left lower quadrant abdominal pain with associated vomiting and watery diarrhea. Found to have enteritis on CT.
PLAN:
# Left lower quadrant abdominal pain/acute enteritis
# Nausea
CT abdomen/pelvis: Nondistended fluid-filled small bowel loops; liquid stool in right colon suggestive of enteritis
WBC 12.4 on arrival. Afebrile.
History of month-long diarrhea earlier this year with negative infectious workup
Continue Zosyn
IV Phenergan for nausea due to prolonged QTc-patient still nauseous 10/01. Switched to Tigan 100 mg PRN.
Avoid further IV fluids due to ESRD and heart failure
Stool studies/cultures, C. difficile pending- patient has not had a bowel movement since being hospitalized- no stool sample. Last bowel movement 3 days ago.
Pantoprazole 40 mg daily
Low residue diet
# ESRD on hemodialysis
# Hyperkalemia
# Hyponatremia
Friday, , Friday schedule
Initial creatinine 5.9, BUN 48
Follows up outpatient with Dr. Vargas
Nephrology consulted for hemodialysis management. HD 10/01/2025. Labs improved from Cr 7.2, BUN 58 on 10/01 to Cr 5.5, BUN 36. Close to estimated dry weight.
Hyperkalemia K 5.5 on 10/01�losartan held. After HD, improved K 4.4 10/02/25
Hyponatremia Na 131 10/01, improved to 134 on 10/02.
Trend BMP daily
# Anemia of chronic kidney disease
On admission- Hgb 10.3; baseline 9-11
Hgb 8.5 10/02/25
Trend CBC
# Chronic ambulatory dysfunction
# Recurrent falls
# Bilateral hearing loss
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
Chronic dizziness may multifactorial-deconditioning versus hearing impairment versus orthostasis
PT/OT following
Orthostatic vital signs
CM for care home dc planning
# Essential hypertension
Continue Coreg 6.25 mg twice daily, and amlodipine 5 mg with hold parameters
Losartan held due to hyperkalemia
# Paroxysmal atrial fibrillation
# Right bundle branch block
EKG showed chronic T wave inversions, QTc 490 (QTc improved from prior)
Continue Eliquis 2.5 mg twice daily, Coreg 6.25 mg twice daily
Monitor telemetry for arrhythmia
# Chronic heart failure
Holding diuretics due to GI illness and ESRD
Daily weights, strict I/Os
Monitor for volume overload
# BPH
Continue tamsulosin
# Hyperlipidemia
Continue atorvastatin
# Depression
# Anxiety
# Insomnia
Continue Zoloft 50 mg twice daily, mirtazapine 7.5 mg nightly
CODE STATUS: DNR
DVT prophylaxis: Eliquis
Anticipated Discharge: > 48 hours
Subjective/Interval History
-
Date of Service: October 02, 2025
Patient evaluated at bedside this morning. He states he is still having lower abdominal pain which started 4 days ago. His last bowel movement was 3 days ago (diarrhea). Patient does not have nausea currently. No new complaints.
Objective Data
-
Labs:
Laboratory Results
10/02/25
06:05
WBC Pending
Hgb Pending
Hct Pending
Plt Count Pending
Sodium 134 L
Potassium 4.4
Chloride 95 L
Carbon Dioxide 29
BUN 36 H
Creatinine 5.5 H*
Glucose 113 H
Calcium 8.2 L
Total Bilirubin 0.6
AST 63 H
ALT 83 H
Alkaline Phosphatase 88
Vital Signs:
Vital Signs
Temp Pulse Resp BP Pulse Ox
97.8 F 77 18 147/57 97
10/02/25 03:24 10/02/25 03:24 10/02/25 03:24 10/02/25 03:24 10/02/25 03:24
I&O
10/01/25 10/02/25 10/03/25
06:59 06:59 06:59
Intake Total 1060 / 1060 1540 / 1540
Balance 1060 / 1060 1540 / 1540
Review of Systems
-
History Source: Patient
Constitutional: Reports Fatigue
EENT: Reports No Symptoms Reported
Respiratory: Reports No Symptoms
Cardiac: Reports No Symptoms
Abdomen/GI: Reports Abdominal Pain
Genitourinary: Reports No Symptoms
Musculoskeletal: Reports No Symptoms
Skin: Reports No Symptoms
Neuro: Reports No Symptoms
Endocrine: Reports No Symptoms
Hematologic / Lymphatic: Reports No Symptoms
Allergy / Immunology: Reports No Symptoms
Physical Exam
-
General: Well Developed, Well Nourished, No Apparent Distress, Comfortable and Conversant
HEENT: Normocephalic, Atraumatic, Moist Mucous Membranes and Anicteric
Respiratory: Clear to Auscultation
Cardiac: Regular Rhythm and S1/S2
GI: Soft, Nondistended and Normal Bowel Sounds
Musculoskeletal: No Clubbing, No Cyanosis and No Edema
Skin: Warm
Neuro: Awake and AO x 3
Psych: Calm and Intact Judgement/Insight
Data Reviewed
-
Labs: Labs Reviewed by me, Discussed with Physician and Discussed with Patient

Documented by User: Natanael Apodaca MD 10/02/25 11:07
Assessment / Plan
Assessment / Plan
Impression:
An 84-year-old male with a past medical history significant for ESRD on hemodialysis (Friday//Friday), coronary artery disease s/p CABG x 3, chronic HFrEF, paroxysmal atrial fibrillation on Eliquis, anemia of chronic disease (CKD),
hypertension, hyperlipidemia, BPH, depression/anxiety presented to the ED with left lower quadrant abdominal pain with associated vomiting and watery diarrhea. Found to have enteritis on CT.
PLAN:
# Left lower quadrant abdominal pain/acute enteritis
# Nausea
CT abdomen/pelvis: Nondistended fluid-filled small bowel loops; liquid stool in right colon suggestive of enteritis
WBC 12.4 on arrival. Afebrile.
History of month-long diarrhea last year with negative infectious workup
Continue Zosyn
IV Phenergan for nausea due to prolonged QTc-patient still nauseous 10/01. Switched to Tigan 100 mg PRN.
Avoid further IV fluids due to ESRD and heart failure
Stool studies/cultures, C. difficile pending- patient has not had a bowel movement since being hospitalized- no stool sample. Last bowel movement 3 days ago.
Pantoprazole 40 mg daily
Low residue diet
# ESRD on hemodialysis
# Hyperkalemia
# Hyponatremia
Friday, , Friday schedule
Initial creatinine 5.9, BUN 48
Follows up outpatient with Dr. Vargas
Nephrology consulted for hemodialysis management. HD 10/01/2025. Labs improved from Cr 7.2, BUN 58 on 10/01 to Cr 5.5, BUN 36. Close to estimated dry weight.
Hyperkalemia K 5.5 on 10/01�losartan held. After HD, improved K 4.4 10/02/25
Hyponatremia Na 131 10/01, improved to 134 on 10/02.
Trend BMP daily
# Anemia of chronic kidney disease
On admission- Hgb 10.3; baseline 9-
Hgb 8.5 10/02/25
Trend CBC
# Chronic ambulatory dysfunction
# Recurrent falls
# Bilateral hearing loss
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
Chronic dizziness may multifactorial-deconditioning versus hearing impairment versus orthostasis
PT/OT following
Orthostatic vital signs
CM for terminal makeup operator dc planning
# Essential hypertension
Continue Coreg 6.25 mg twice daily, and amlodipine 5 mg with hold parameters
Losartan held due to hyperkalemia
# Paroxysmal atrial fibrillation
# Right bundle branch block
EKG showed chronic T wave inversions, QTc 490 (QTc improved from prior)
Continue Eliquis 2.5 mg twice daily, Coreg 6.25 mg twice daily
Monitor telemetry for arrhythmia
# Chronic heart failure
Holding diuretics due to GI illness and ESRD
Daily weights, strict I/Os
Monitor for volume overload
# BPH
Continue tamsulosin
# Hyperlipidemia
Continue atorvastatin
# Depression
# Anxiety
# Insomnia
Continue Zoloft 50 mg twice daily, mirtazapine 7.5 mg nightly
CODE STATUS: DNR
DVT prophylaxis: Eliquis
[2025-10-02 07:41] LABS: Hematocrit 27.5 % (39.0-52.0); Hemoglobin 8.5 g/dL (13.0-18.0); Mean Corp Hgb Conc. 30.9 g/dL (33.0-37.0); Mean Corpuscular Volume 99.3 fL (80.0-94.0); Platelet Count 131 10^3/uL (130-400); Red Cell Dist. Width 17.7 % (11.5-14.5)
[2025-10-02] MEDS: THERAGRAN 1 TABLET PO (08:11)
[2025-10-02] MEDS: FLOMAX 0.4 MG PO ×2 (08:11→20:38)
[2025-10-02] MEDS: COREG 6.25 MG PO ×2 (08:11→20:35)
[2025-10-02] MEDS: NORVASC 5 MG PO (08:11)
[2025-10-02] MEDS: PHOSLO 1334 MG PO (08:11)
[2025-10-02] MEDS: ELIQUIS 2.5 MG PO ×2 (08:11→20:38)
[2025-10-02] MEDS: LIPITOR 80 MG PO (08:12)
[2025-10-02] MEDS: BENADRYL 25 MG PO (08:19)
[2025-10-02 09:02] LABS: Absolute Neutrophils -Man Diff 7.9 10^3/uL (1.4-6.5)
[2025-10-02 09:03] LABS: Acanthocytes FEW; Anisocytosis 1+; Hypochromasia 1+; Normal RBC Morphology No; Ovalocytes 1+; Platelets Checked Yes; Polychromasia 1+; Schistocytes FEW; Total Cells Counted 100
[2025-10-02] MEDS: PROTONIX 40 MG PO (09:26)
--- NOTE | 2025-10-02 12:58 | CM ---
Cm met with pt bedside
He resides alone in a 2SH with OSTE, full flight to 2nd floor
Pt is independent without ADs, drives+
has a WW and SPC for use as needed
He attends outpt HD at [facility] TTS 0530, he drives himself
PCP- Jose Tamez
Rx- CLAUDE Hernandez
SNF recs by therapy, pt declined
Referral sent to [facility] per his request
With permission, call to dtr/Elle with update
She supports pt going home as she noted they have not been pleased with SNFs with HD onsite
TT/resident requesting to update to dtr per family request
Discharge Disposition - home with [facility] (referral pending) and [facility] outpt HD
[facility] Fax- [phone]
[facility] fax- [phone]
--- NOTE | 2025-10-02 15:47 | W.PN.NEPH.PH ---
Today's Communication / Plan
-
observe
Assessment/Plan
-
Impression:
Acute enteritis with watery diarrhea/vomiting
Mild hyperkalemia
ESRD TTS [facility] in [place]
HTN
AV fistula last fistulogram 02/2025
BPH
Anemia of chronic disease/ESRD
CAD/RI/CABG s/p stent 11/2023
RBBB
Paroxysmal A-fib
Cardiac murmur
Bradycardia due to labetalol
Chronic diastolic CHF
HLD
Depression
Gout
Chronic dizziness
Poor sleep
Hypoantremia
Plan:
A/w abd pain and diarrhea, CT noted enteritis
hemodynamically stable
next HD Friday as per schedule
Bp stable
abx per primary
-
-
Date of Service: October 02, 2025
CC / HPI / ROS
-
Chief Complaint:
ESRD
History of Present Illness:
ESRD Friday
Hemodynamically stable
k normal, sodium better at 134
no fever
Review of Systems:
offers no cp ro sob at rest
no change in abd pain
on RA
no diarrhea
Labs
-
Labs:
WBC 10.7 10^3/uL (4.8-10.8) 10/02/25 06:05
RBC 2.77 10^6/uL (4.70-6.10) L 10/02/25 06:05
Hgb 8.5 g/dL (13.0-18.0) L 10/02/25 06:05
Hct 27.5 % (39.0-52.0) L 10/02/25 06:05
Plt Count 131 10^3/uL (130-400) 10/02/25 06:05
Sodium 134 mmol/L (135-145) L 10/02/25 06:05
Potassium 4.4 mmol/L (3.5-5.1) 10/02/25 06:05
Chloride 95 mmol/L (98-107) L 10/02/25 06:05
Carbon Dioxide 29 mmol/L (22-30) 10/02/25 06:05
BUN 36 mg/dl (9-20) H 10/02/25 06:05
Creatinine 5.5 mg/dL (0.7-1.3) H* 10/02/25 06:05
eGFR 9.54 10/02/25 06:05
Glucose 113 mg/dl (70-99) H 10/02/25 06:05
Calcium 8.2 mg/dl (8.4-10.2) L 10/02/25 06:05
Phosphorus 5.9 mg/dl (2.5-4.5) H 10/01/25 06:22
Albumin 3.5 g/dl (3.5-5.0) 10/02/25 06:05
Physical Exam
-
Vital Signs:
Vital Signs
Temp Pulse Resp BP Pulse Ox
97.8 F 74 16 135/53 96
10/02/25 11:00 10/02/25 11:00 10/02/25 11:00 10/02/25 11:00 10/02/25 11:00
Cardiovascular:: Regular rate and rhythm
Respiratory:: Bilateral: CTA
Lung Excursion:: Normal
Abdomen:: Nontender and Soft
Bowel Sounds:: Normal
Extremity Edema:: None: Bilateral:
Escobar Catheter: No
[2025-10-02] MEDS: ATARAX 10 MG PO (21:20)
[2025-10-02] MEDS: ZYRTEC 10 MG PO (21:20)
[2025-10-02] MEDS: CLARITIN 10 MG PO (23:14)
[2025-10-03 03:00] VITALS: BP 125/47
[2025-10-03] MEDS: TYLENOL 650 MG PO (03:06)
[2025-10-03] MEDS: ZOSYN 50 IV ×3 (03:06→20:25)
[2025-10-03 07:00] VITALS: BP 134/58
[2025-10-03 08:32] LABS: Hematocrit 27.7 % (39.0-52.0); Hemoglobin 8.7 g/dL (13.0-18.0); Mean Corp Hgb Conc. 31.4 g/dL (33.0-37.0); Mean Corpuscular Volume 101.5 fL (80.0-94.0); Platelet Count 127 10^3/uL (130-400); Red Cell Dist. Width 17.4 % (11.5-14.5)
[2025-10-03] MEDS: NORVASC 5 MG PO (08:34)
[2025-10-03] MEDS: PHOSLO 1334 MG PO (08:34)
[2025-10-03] MEDS: LIPITOR 80 MG PO (08:34)
[2025-10-03] MEDS: PROTONIX 40 MG PO (08:34)
[2025-10-03] MEDS: COREG 6.25 MG PO ×2 (08:35→20:24)
[2025-10-03] MEDS: ELIQUIS 2.5 MG PO ×2 (08:35→20:24)
[2025-10-03] MEDS: FLOMAX 0.4 MG PO ×2 (08:35→20:25)
[2025-10-03] MEDS: THERAGRAN 1 TABLET PO (08:35)
[2025-10-03 08:38] VITALS: BMI 26.2
[2025-10-03] MEDS: MORPHINE SULFATE 2 MG IV (08:44)
--- NOTE | 2025-10-03 08:55 | W.PN.HOSP.TC ---
Addendum entered and electronically signed by Bridgette Xiao MD 10/03/25 17:31:
I saw and evaluated the patient independently. I reviewed and discussed the resident�s note and agree with findings and plan as documented by Dr. Arce.
GENERAL: well developed, well nourished, male in no apparent distress
HEENT: NC/AT
HEART: irreg irreg, murmur
LUNGS : clear to auscultation bilaterally
ABDOM: soft, tender just with lying my stethoscope linn on his belly (seems out of proportion), nondistended, + bowel sounds
EXT: no cyanosis, clubbing, or edema
NEUROLOGIC: flat affect--grossly intact
Left lower quadrant abdominal pain/acute enteritis with nausea (possibly due to abx)--started on zosyn (renally dosed)--CT scan with enteritis--stool cultures pending--transitioned to oral augmentin--WBC improved--(History of month-long diarrhea
last year with negative infectious workup)--may need to follow up with GI as outpt if symptoms continue--Low residue diet
ESRD on hemodialysis/Hyperkalemia/Hyponatremia--Friday, , Friday schedule--apprec renal--cont meds as able
Anemia of chronic kidney disease-- no signs of active bleeding
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
PT/OT following
Essential hypertension--Continue Coreg 6.25 mg twice daily, and amlodipine 5 mg with hold parameters--Losartan held due to hyperkalemia
Paroxysmal atrial fibrillation/Right bundle branch block--EKG showed chronic T wave inversions, QTc 490 (QTc improved from prior)--Continue Eliquis 2.5 mg twice daily, Coreg 6.25 mg twice daily
Chronic heart failure with mildly reduced EF 40% in 06/2025 with stage 2 diastolic dysfunction--volume controlled by HD
BPH--Continue tamsulosin
Hyperlipidemia--Continue atorvastatin
Depression/Anxiety/Insomnia--Continue Zoloft 50 mg twice daily, mirtazapine 7.5 mg nightly
CODE STATUS--DNR
DVT proph-- Eliquis
Dr. Arce spoke with pt daughter to update clinical course.
Original Note:
Today's Communication/Plan
-
Hemodialysis for tomorrow.
piptaz switched to Augmentin
Discharge tomorrow after hemodialysis.
On trimethobenzamide for nausea.
Follow-up CMP, CBC.
Assessment / Plan
Assessment / Plan
Impression:
An 84-year-old male with a past medical history significant for ESRD on hemodialysis (Friday//Friday), coronary artery disease s/p CABG x 3, chronic HFrEF, paroxysmal atrial fibrillation on Eliquis, anemia of chronic disease (CKD),
hypertension, hyperlipidemia, BPH, depression/anxiety presented to the ED with left lower quadrant abdominal pain with associated vomiting and watery diarrhea. Found to have enteritis on CT.
PLAN:
# Left lower quadrant abdominal pain/acute enteritis:
# Nausea
Vitals: BP 99/53---134/58, [place] 78, temp 98, O2 sat 97, RR 16--20,
WBC 12.4 on arrival---> 8.2 today. Afebrile.
On 09/30 CT abdomen/pelvis: Nondistended fluid-filled small bowel loops; liquid stool in right colon suggestive of enteritis.
Diverticulosis of the descending and sigmoid colon.
Relative atrophic kidneys bilaterally non-excreting. Small right renal nonobstructing calculi versus atherosclerotic vascular calcification.
Small simple right renal cysts. Additional bilateral subcentimeter low-attenuation renal lesions too small to characterize.
History of month-long diarrhea last year with negative infectious workup.
Switched Zosyn to Augmentin for 10 days, planning the discharge for tomorrow after hemodialysis.
IV Phenergan for nausea due to prolonged QTc-patient still nauseous 10/01. Switched to Tigan 100 mg PRN.
Avoid further IV fluids due to ESRD and heart failure
Stool studies/cultures, C. difficile pending- patient had a bowel movement since being hospitalized- stool sample not collected.
Pantoprazole 40 mg daily
Low residue diet
# ESRD on hemodialysis
# Hyperkalemia
# Hyponatremia
Friday, , Friday schedule
Initial creatinine 5.9---7.6 high, BUN 48
Follows up outpatient with Dr. Vargas
Nephrology consulted for hemodialysis management.
Tomorrow scheduled for hemodialysis.
Hyperkalemia K 5.5 on 10/01�losartan held. After HD, improved K 4.4 10/02/25
Hyponatremia Na 131----130 low
Trend BMP daily
# Anemia of chronic kidney disease
On admission- Hgb 10.3; baseline -
Hgb 8.5 10/02/25
Trend CBC
# Chronic ambulatory dysfunction
# Recurrent falls
# Bilateral hearing loss
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
Chronic dizziness may multifactorial-deconditioning versus hearing impairment versus orthostasis
PT/OT following
Orthostatic vital signs
CM for [facility] dc planning
# Essential hypertension
Continue Coreg 6.25 mg twice daily, and amlodipine 5 mg with hold parameters
Losartan held due to hyperkalemia
# Paroxysmal atrial fibrillation
# Right bundle branch block
EKG showed chronic T wave inversions, QTc 490 (QTc improved from prior)
Continue Eliquis 2.5 mg twice daily, Coreg 6.25 mg twice daily
Monitor telemetry for arrhythmia
# Chronic heart failure
Holding diuretics due to GI illness and ESRD
Daily weights, strict I/Os
Monitor for volume overload
# BPH
Continue tamsulosin
# Hyperlipidemia
Continue atorvastatin
# Depression
# Anxiety
# Insomnia
Continue Zoloft 50 mg twice daily, mirtazapine 7.5 mg nightly
CODE STATUS: DNR
DVT prophylaxis: Eliquis
disposition: home with [facility]- visiting nurses.
Anticipated Discharge: Within 24 hours
Subjective/Interval History
-
Date of Service: October 03, 2025
Overnight he Concerns for lower abdominal pain on the left side, associated with nausea overnight he got Tigan, no vomiting episode.
His lower abdominal pain on the left side which is not radiating dull in nature not associated with the bowel movement.
Discussed with nurse regarding his itchiness and received cetirizine, diphenhydramine 25 mg, loratadine 10 mg overnight.
Objective Data
-
Labs:
Laboratory Results
10/03/25
07:57
WBC 8.2
Hgb 8.7 L
Hct 27.7 L
Plt Count 127 L
Sodium Pending
Potassium Pending
Chloride Pending
Carbon Dioxide Pending
BUN Pending
Creatinine Pending
Glucose Pending
Calcium Pending
Total Bilirubin Pending
AST Pending
ALT Pending
Alkaline Phosphatase Pending
Vital Signs:
Vital Signs
Temp Pulse Resp BP Pulse Ox
97.6 F 77 20 134/58 97
10/03/25 07:00 10/03/25 08:35 10/03/25 07:00 10/03/25 08:35 10/03/25 07:00
I&O
10/02/25 10/03/25 10/04/25
06:59 06:59 06:59
Intake Total 1540 / 1540
Output Total 350 / 350
Balance 1540 / 1540 -350 / -350
Review of Systems
-
History Source: Patient
All other systems: Reviewed and negative
Physical Exam
-
General: Well Developed, No Apparent Distress, Obese and Other (AV fistula on left side for hemodialysis.)
Respiratory: Clear to Auscultation
Cardiac: Regular Rhythm and Murmur (Systolic murmur)
GI: Soft, Nontender and Nondistended
Genito-urinary: No Costovertebral Tender
Musculoskeletal: No Clubbing, No Cyanosis and No Edema
Skin: Warm
Neuro: AO x 3
Hematologic / Lymphatic: No Lymphadenopathy
[2025-10-03 10:28] LABS: ALT (SGPT) 63 U/L (0-50); AST (SGOT) 34 U/L (17-59); Albumin 3.9 g/dl (3.5-5.0); Alkaline Phosphatase 81 U/L (38-126); Blood Urea Nitrogen 56 mg/dl (9-20); Calcium 8.0 mg/dl (8.4-10.2); Carbon Dioxide 26 mmol/L (22-30); Chloride 93 mmol/L (98-107); Estimated Creatinine Clearance 7 ml/min; Glucose 112 mg/dl (70-99); Potassium 4.6 mmol/L (3.5-5.1); Sodium 130 mmol/L (135-145); Total Protein 6.5 g/dl (6.3-8.2); eGFR 6.47
--- NOTE | 2025-10-03 10:47 | W.PN.NEPH.PH ---
Today's Communication / Plan
-
For dialysis tomorrow orders provided
Zosyn renally dosed
Assessment/Plan
-
Impression:
Acute enteritis with watery diarrhea/vomiting
Mild hyperkalemia
ESRD TTS [facility] in [place]
HTN
AV fistula last fistulogram 02/2025
BPH
Anemia of chronic disease/ESRD
CAD/PA/CABG s/p stent 11/2023
RBBB
Paroxysmal A-fib
Cardiac murmur
Bradycardia due to labetalol
Chronic diastolic CHF
HLD
Depression
Gout
Chronic dizziness
Poor sleep
Hypoantremia
Plan:
A/w abd pain and diarrhea, CT noted enteritis
hemodynamically stable
next HD Friday as per schedule , orders provided
Zosyn renally dosed
Bp stable
abx per primary
-
-
Date of Service: October 03, 2025
CC / HPI / ROS
-
Chief Complaint:
ESRD
History of Present Illness:
ESRD Friday
Hemodynamically stable
no fever
Review of Systems:
offers no cp ro sob at rest
no change in abd pain
on RA
no diarrhea
Labs
-
Labs:
WBC 8.2 10^3/uL (4.8-10.8) 10/03/25 07:57
RBC 2.73 10^6/uL (4.70-6.10) L 10/03/25 07:57
Hgb 8.7 g/dL (13.0-18.0) L 10/03/25 07:57
Hct 27.7 % (39.0-52.0) L 10/03/25 07:57
Plt Count 127 10^3/uL (130-400) L 10/03/25 07:57
Sodium 130 mmol/L (135-145) L 10/03/25 07:57
Potassium 4.6 mmol/L (3.5-5.1) 10/03/25 07:57
Chloride 93 mmol/L (98-107) L 10/03/25 07:57
Carbon Dioxide 26 mmol/L (22-30) 10/03/25 07:57
BUN 56 mg/dl (9-20) H 10/03/25 07:57
Creatinine 7.6 mg/dL (0.7-1.3) H* 10/03/25 07:57
eGFR 6.47 10/03/25 07:57
Glucose 112 mg/dl (70-99) H 10/03/25 07:57
Calcium 8.0 mg/dl (8.4-10.2) L 10/03/25 07:57
Phosphorus 5.9 mg/dl (2.5-4.5) H 10/01/25 06:22
Albumin 3.9 g/dl (3.5-5.0) 10/03/25 07:57
Physical Exam
-
Vital Signs:
Vital Signs
Temp Pulse Resp BP Pulse Ox
97.6 F 77 20 134/58 97
10/03/25 07:00 10/03/25 08:35 10/03/25 07:00 10/03/25 08:35 10/03/25 07:00
Cardiovascular:: Regular rate and rhythm
Respiratory:: Bilateral: CTA
Lung Excursion:: Normal
Abdomen:: Nontender and Soft
Bowel Sounds:: Normal
Extremity Edema:: None: Bilateral:
Escobar Catheter: No
[2025-10-03 11:00] VITALS: BP 146/60
[2025-10-03 11:00] LABS: Nucleated Red Blood Cells % 0 % (-)
--- NOTE | 2025-10-03 11:49 | CM ---
[facility] is unable to accept patient due to insurance. CM spoke with patient and he is in agreement to accept [facility], tt sent to Liaison and she will follow with patient to assess. Patient for HD tomorrow and tentatively planning for discharge home
tomorrow. CM will continue to follow for discharge planning needs.
Plan; home with [facility] pending acceptance
--- NOTE | 2025-10-03 12:13 | VNURNOTE ---
Home Health Liaison met with patient at bedside to discuss [facility] nurse/therapy, visits, schedule and homebound status. Patient is agreeable and understands that visits at home will be 2-3 x per week to assess and teach medical management. Patient
is aware that [facility] will contact them for start of care within a week after discharge from . Provided contact number for [facility].
[facility] referral completed in [facility].
[2025-10-03 15:00] VITALS: BP 146/64
--- NOTE | 2025-10-03 16:15 | W.PN.UPDATE ---
Update Note
Progress Note Update
Spoke with the patient's daughter Elle on phone.
Explained in detail regards patient's status includes below:
WBC in normal range, and currently he is on antibiotic, CT scan findings of enteritis, stool culture blood culture still pending.
He is stable currently with vitals and planning to discharge after hemodialysis for tomorrow.
Requested to follow-up with buncher operator in future.
Explained his hospitalization for more days might leads to hospital induced infection. She agrees with the plan for disposition to home with [facility]- visiting nurses.
[2025-10-03 19:21] VITALS: BP 142/57
[2025-10-03] MEDS: MORPHINE SULFATE 4 MG IV (20:36)
[2025-10-03] MEDS: ZYRTEC 10 MG PO (21:30)
[2025-10-03] MEDS: ATARAX 10 MG PO (21:30)
[2025-10-03 23:28] VITALS: BP 131/52
[2025-10-04] VITALS (7 sets, daily range): BP systolic 119–156; BP diastolic 41–65; BMI 25.8
[2025-10-04] MEDS: MORPHINE SULFATE 4 MG IV (03:40)
[2025-10-04] MEDS: ZOSYN 50 IV ×2 (03:43→12:49)
--- NOTE | 2025-10-04 06:38 | W.PN.HOSP.TC ---
Addendum entered and electronically signed by Bridgette Xiao MD 10/04/25 15:27:
I saw and evaluated the patient independently. I reviewed and discussed the resident�s note and agree with findings and plan as documented by Dr. Arce.
GENERAL: well developed, well nourished, male in no apparent distress
HEENT: NC/AT
HEART: irreg irreg, murmur
LUNGS : clear to auscultation bilaterally
ABDOM: soft, tenderness improving, nondistended, + bowel sounds
EXT: no cyanosis, clubbing, or edema
NEUROLOGIC: flat affect--grossly intact
Left lower quadrant abdominal pain/acute enteritis with nausea (possibly due to abx now resolved)--started on zosyn (renally dosed)--CT scan with enteritis--stool cultures pending, neg for norovirus and C. diff negative--transitioned to oral
augmentin--WBC improved--(History of month-long diarrhea last year with negative infectious workup)--may need to follow up with GI as outpt if symptoms continue--Low residue diet
ESRD on hemodialysis/Hyperkalemia/Hyponatremia--Friday, , Friday schedule--apprec renal--cont meds as able
Anemia of chronic kidney disease-- no signs of active bleeding
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
PT/OT following
Essential hypertension--Continue Coreg 6.25 mg twice daily, and amlodipine 5 mg with hold parameters--Losartan held due to hyperkalemia
Paroxysmal atrial fibrillation/Right bundle branch block--EKG showed chronic T wave inversions, QTc 490 (QTc improved from prior)--Continue Eliquis 2.5 mg twice daily, Coreg 6.25 mg twice daily
Chronic heart failure with mildly reduced EF 40% in 06/2025 with stage 2 diastolic dysfunction--volume controlled by HD
BPH--Continue tamsulosin
Hyperlipidemia--Continue atorvastatin
Depression/Anxiety/Insomnia--Continue Zoloft 50 mg twice daily, mirtazapine 7.5 mg nightly
CODE STATUS--DNR
DVT proph-- Eliquis
Dr. Arce spoke with pt daughter to update clinical course and she wants him to stay another night because he is 'weak' after HD.
Original Note:
Today's Communication/Plan
-
Augmentin for 5 days (tomorrow discharge) to complete 10 days course.
Follow-up with design draftsman at outpatient clinic
switched to augmentin today
follow up with design draftsman
c.dif negative
follow up with git as opd
Assessment / Plan
Assessment / Plan
Impression:
An 84-year-old male with a past medical history significant for ESRD on hemodialysis (Friday//Friday), coronary artery disease s/p CABG x 3, chronic HFrEF, paroxysmal atrial fibrillation on Eliquis, anemia of chronic disease (CKD),
hypertension, hyperlipidemia, BPH, depression/anxiety presented to the ED with left lower quadrant abdominal pain with associated vomiting and watery diarrhea. Found to have enteritis on CT.
PLAN:
# Left lower quadrant abdominal pain/acute enteritis:
# Nausea
Vitals: BP 141/65, VA 81, temp 98, O2 sat 97, RR 17
WBC 12.4 on arrival---> 8.2-->8.2 today. Afebrile.
On 09/30 CT abdomen/pelvis: Nondistended fluid-filled small bowel loops; liquid stool in right colon suggestive of enteritis.
Diverticulosis of the descending and sigmoid colon.
Relative atrophic kidneys bilaterally non-excreting. Small right renal nonobstructing calculi versus atherosclerotic vascular calcification.
Small simple right renal cysts. Additional bilateral subcentimeter low-attenuation renal lesions too small to characterize.
History of month-long diarrhea last year with negative infectious workup.
Switched Zosyn to Augmentin for 10 days, planning the discharge for today after hemodialysis.
IV Phenergan for nausea due to prolonged QTc-patient still nauseous 10/01. Switched to Tigan 100 mg PRN.
Avoid further IV fluids due to ESRD and heart failure
Stool culture collected yesterday norovirus negative. Salmonella, Shigella, Campylobacter still pending.
C. difficile negative
Pantoprazole 40 mg daily
Low residue diet
# ESRD on hemodialysis
# Hyperkalemia
# Hyponatremia
Friday, , Friday schedule
Initial creatinine 5.9---7.6 high, BUN 48
Follows up outpatient with Dr. Vargas
Nephrology consulted for hemodialysis management.
Tomorrow scheduled for hemodialysis.
Hyperkalemia K 5.5 on 10/01�losartan held. After HD, improved K 4.4 10/02/25
Hyponatremia Na 131----130 low
Trend BMP daily
# Anemia of chronic kidney disease
On admission- Hgb 10.3; baseline 9-
Hgb 8.5--->8.7-->8.3 10/02/25
Trend CBC
# Chronic ambulatory dysfunction
# Recurrent falls
# Bilateral hearing loss
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
Chronic dizziness may multifactorial-deconditioning versus hearing impairment versus orthostasis
PT/OT following
Orthostatic vital signs
CM for dry transfer worker dc planning
# Essential hypertension
Continue Coreg 6.25 mg twice daily, and amlodipine 5 mg with hold parameters
Losartan held due to hyperkalemia
# Paroxysmal atrial fibrillation
# Right bundle branch block
EKG showed chronic T wave inversions, QTc 490 (QTc improved from prior)
Continue Eliquis 2.5 mg twice daily, Coreg 6.25 mg twice daily
Monitor telemetry for arrhythmia
# Chronic heart failure
Holding diuretics due to GI illness and ESRD
Daily weights, strict I/Os
Monitor for volume overload
# BPH
Continue tamsulosin
# Hyperlipidemia
Continue atorvastatin
# Depression
# Anxiety
# Insomnia
Continue Zoloft 50 mg twice daily, mirtazapine 7.5 mg nightly
Case management consulted for visiting nurse at home during the discharge.
CODE STATUS: DNR
DVT prophylaxis: Eliquis
disposition: home with [facility]- visiting nurses.
Anticipated Discharge: Within 24 hours
Subjective/Interval History
-
Date of Service: October 04, 2025
Overnight the patient has no acute concerns for nausea, vomiting, diarrhea,fever, chills. Stool sample collected from yesterday's bowel movement sample. Today he is going to resume hemodialysis at morning.
Yesterday evening patient had a SVT at telemetry followed by EKG taken demonstrated type I AV block. He had similar EKG findings in his past.
Objective Data
-
Labs:
Laboratory Results
10/04/25
06:00
WBC Pending
Hgb Pending
Hct Pending
Plt Count Pending
Sodium Pending
Potassium Pending
Chloride Pending
Carbon Dioxide Pending
BUN Pending
Creatinine Pending
Glucose Pending
Calcium Pending
Total Bilirubin Pending
AST Pending
ALT Pending
Alkaline Phosphatase Pending
Vital Signs:
Vital Signs
Temp Pulse Resp BP Pulse Ox
97.6 F 81 17 141/65 98
10/04/25 03:21 10/04/25 03:21 10/04/25 03:21 10/04/25 03:21 10/04/25 03:21
I&O
10/02/25 10/03/25 10/04/25
06:59 06:59 06:59
Intake Total 1540 / 1540 1020 / 1020
Output Total 350 / 350
Balance 1540 / 1540 -350 / -350 1020 / 1020
Review of Systems
-
History Source: Patient
All other systems: Reviewed and negative
Physical Exam
-
General: No Apparent Distress and Obese
Respiratory: Clear to Auscultation
Cardiac: Regular Rhythm and Murmur (Systolic murmur)
GI: Soft, Nontender and Nondistended
Genito-urinary: No Costovertebral Tender
Musculoskeletal: No Clubbing and No Cyanosis
Neuro: AO x 3
Psych: Calm
[2025-10-04] MEDS: PHOSLO 1334 MG PO (08:03)
[2025-10-04 08:39] LABS: Hematocrit 25.4 % (39.0-52.0); Hemoglobin 8.3 g/dL (13.0-18.0); Mean Corp Hgb Conc. 32.7 g/dL (33.0-37.0); Mean Corpuscular Volume 93.0 fL (80.0-94.0); Platelet Count 154 10^3/uL (130-400); Red Cell Dist. Width 17.4 % (11.5-14.5)
[2025-10-04 09:19] LABS: ALT (SGPT) 54 U/L (0-50); AST (SGOT) 26 U/L (17-59); Albumin 3.9 g/dl (3.5-5.0); Alkaline Phosphatase 80 U/L (38-126); Blood Urea Nitrogen 65 mg/dl (9-20); Calcium 7.6 mg/dl (8.4-10.2); Carbon Dioxide 19 mmol/L (22-30); Chloride 95 mmol/L (98-107); Estimated Creatinine Clearance 6 ml/min; Glucose 126 mg/dl (70-99); Potassium 5.2 mmol/L (3.5-5.1); Sodium 130 mmol/L (135-145); Total Protein 5.9 g/dl (6.3-8.2); eGFR 5.01
[2025-10-04] MEDS: RETACRIT 8000 UNITS IV (09:37)
--- NOTE | 2025-10-04 09:39 | W.PN.NEPH.HD ---
Assessment
-
Patient seen on dialysis
Patient refusing full dialysis treatment per usual despite need
change K bath to 2
discharge after HD
Progress Note - Hemodialysis
-
Date of Service: October 04, 2025
Duration: 15 minutes and 3 hours
Potassium Bath: 2
Calcium Bath: 2.5
Opti-Dialyzer: 160
Ultrafiltration: Other (3kg)
Blood Flow: 400
Dialysate Flow: 600
Heparin: none
[2025-10-04 09:46] LABS: Nucleated Red Blood Cells % 0 % (-)
[2025-10-04] MEDS: LIPITOR 80 MG PO (12:47)
[2025-10-04] MEDS: FLOMAX 0.4 MG PO ×2 (12:48→20:06)
[2025-10-04] MEDS: NORVASC 5 MG PO (12:48)
[2025-10-04] MEDS: COREG 6.25 MG PO ×2 (12:48→20:05)
[2025-10-04] MEDS: PROTONIX 40 MG PO (12:48)
[2025-10-04] MEDS: ELIQUIS 2.5 MG PO ×2 (12:48→20:05)
[2025-10-04] MEDS: THERAGRAN 1 TABLET PO (12:49)
--- NOTE | 2025-10-04 16:18 | CM ---
Patient seen at bedside with physicians on [address]. Patient daughter did not want to transport home as patient was complaining of weakness following HD. CM spoke with HD nurse and she was planning to send updated flow sheets to HD agency. Patient
now for discharge home tomorrow with [facility] to follow. CM will continue to follow for discharge planning needs.
Plan; home with [facility] to follow and HD tue/thur/sat.
[2025-10-04] MEDS: AUGMENTIN 500 MG/125 MG 1 TABLET PO (20:05)
[2025-10-04] MEDS: ZYRTEC 10 MG PO (21:45)
[2025-10-04] MEDS: ATARAX 10 MG PO (21:45)
[2025-10-05 03:00] VITALS: BP 142/54
--- NOTE | 2025-10-05 03:00 | DOWNTIME ---
There was a [employer] Downtime on 10/05/2025 from 0100 to 10/05/2025 at 0255. Downtime documentation of patient's care, including medication administrations, has been reconciled in the electronic record per guidelines. Refer to the
patient's paper chart under the miscellaneous tab to see printed paper medication records and downtime forms.
[2025-10-05 05:54] VITALS: BMI 24.6
[2025-10-05] MEDS: MORPHINE SULFATE 4 MG IV (05:55)
--- NOTE | 2025-10-05 07:03 | W.PN.HOSP.TC ---
Addendum entered and electronically signed by Bridgette Xiao MD 10/05/25 13:23:
I saw and evaluated the patient independently. I reviewed and discussed the resident�s note and agree with findings and plan as documented by Dr. Arce.
GENERAL: well developed, well nourished, male in no apparent distress
HEENT: NC/AT
HEART: irreg irreg, murmur
LUNGS : clear to auscultation bilaterally
ABDOM: soft, tenderness improving, nondistended, + bowel sounds
EXT: no cyanosis, clubbing, or edema
NEUROLOGIC: flat affect--grossly intact--appears depressed
Left lower quadrant abdominal pain/acute enteritis with nausea (possibly due to abx now resolved)--started on zosyn (renally dosed) converted to augmentin at d/c--CT scan with enteritis--stool cultures neg for norovirus and C. diff negative-WBC
improved--(History of month-long diarrhea last year with negative infectious workup)--may need to follow up with GI as outpt if symptoms continue--Low residue diet
ESRD on hemodialysis/Hyperkalemia/Hyponatremia--Friday, , Friday schedule--apprec renal--cont meds as able--patient states that for the last 3 years he has been unable to complete a 4-hour dialysis treatment due to intolerance and
dizziness/weakness
Anemia of chronic kidney disease-- no signs of active bleeding
Chronic ambulatory dysfunction/Recurrent falls/Bilateral hearing loss--History of prior CVA with chronic left arm weakness--1999--Chronic dizziness may multifactorial--deconditioning versus hearing impairment versus orthostasis
PT/OT following
Essential hypertension--Continue Coreg 6.25 mg twice daily, and amlodipine 5 mg with hold parameters--Losartan held due to hyperkalemia
Paroxysmal atrial fibrillation/Right bundle branch block--EKG showed chronic T wave inversions, QTc 490 (QTc improved from prior)--Continue Eliquis 2.5 mg twice daily, Coreg 6.25 mg twice daily
Chronic heart failure with mildly reduced EF 40% in 06/2025 with stage 2 diastolic dysfunction--volume controlled by HD
BPH--Continue tamsulosin
Hyperlipidemia--Continue atorvastatin
Depression/Anxiety/Insomnia--Continue Zoloft 50 mg twice daily, mirtazapine 7.5 mg nightly
CODE STATUS--DNR
DVT proph-- Eliquis
Spoke with patient daughter Elle, she would like patient to go to long term facility for rehab. Patient is not agreeable. He only wants to go home. I have no reason to believe that he is unable to make informed medical decisions.
Therefore, I cannot send him any please he does not wish to go.
Ok for d/c home.
Original Note:
Today's Communication/Plan
-
Follow up with cto, GIT within a week
follow up with PCP
Assessment / Plan
Assessment / Plan
Impression:
An 84-year-old male with a past medical history significant for ESRD on hemodialysis (Friday//Friday), coronary artery disease s/p CABG x 3, chronic HFrEF, paroxysmal atrial fibrillation on Eliquis, anemia of chronic disease (CKD),
hypertension, hyperlipidemia, BPH, depression/anxiety presented to the ED with left lower quadrant abdominal pain with associated vomiting and watery diarrhea. Found to have enteritis on CT.
PLAN:
# Left lower quadrant abdominal pain/acute enteritis:
# Nausea
Vitals: BP 141/65, IN 81, temp 98, O2 sat 97, RR 17
WBC 12.4 on arrival---> 8.2-->8.2 today. Afebrile.
On 09/30 CT abdomen/pelvis: Nondistended fluid-filled small bowel loops; liquid stool in right colon suggestive of enteritis.
Diverticulosis of the descending and sigmoid colon.
Relative atrophic kidneys bilaterally non-excreting. Small right renal nonobstructing calculi versus atherosclerotic vascular calcification.
Small simple right renal cysts. Additional bilateral subcentimeter low-attenuation renal lesions too small to characterize.
History of month-long diarrhea last year with negative infectious workup.
Switched Zosyn to Augmentin for 10 days adjusted to renal dosage, planning the discharge for today after hemodialysis.
Augmentin renal dosage adjusted to 500 mg/125 on day 7.
IV Phenergan for nausea due to prolonged QTc-patient still nauseous 10/01. Switched to Tigan 100 mg PRN.
Avoid further IV fluids due to ESRD and heart failure
Stool culture collected yesterday norovirus negative. Salmonella, Shigella, Campylobacter still pending.
C. difficile negative
Pantoprazole 40 mg daily
Low residue diet
# ESRD on hemodialysis
# Hyperkalemia
# Hyponatremia
Friday, , Friday schedule
Initial creatinine 5.9---7.6-- 6.4 downtrending, BUN 48
Follows up outpatient with Dr. Vargas
Nephrology consulted for hemodialysis management.
Tomorrow scheduled for hemodialysis.
Hyperkalemia K 5.5 on 10/01�losartan held. After HD, improved K 4.4 10/02/25
Hyponatremia Na 131----130 low
Trend BMP daily
# Anemia of chronic kidney disease
On admission- Hgb 10.3; baseline 9-11
Hgb 8.5--->8.7-->8.3-->8.2 today
Trend CBC
# Chronic ambulatory dysfunction
# Recurrent falls
# Bilateral hearing loss
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
Chronic dizziness may multifactorial-deconditioning versus hearing impairment versus orthostasis
PT/OT following
Orthostatic vital signs
CM for supervisor long goods dc planning
# Essential hypertension
Continue Coreg 6.25 mg twice daily, and amlodipine 5 mg with hold parameters
Losartan held due to hyperkalemia
glucose 108 improving.
# Paroxysmal atrial fibrillation
# Right bundle branch block
EKG showed chronic T wave inversions, QTc 490 (QTc improved from prior)
Continue Eliquis 2.5 mg twice daily, Coreg 6.25 mg twice daily
Monitor telemetry for arrhythmia
# Chronic heart failure
Holding diuretics due to GI illness and ESRD
Daily weights, strict I/Os
Monitor for volume overload
# BPH
Continue tamsulosin
# Hyperlipidemia
Continue atorvastatin
# Depression
# Anxiety
# Insomnia
Continue Zoloft 50 mg twice daily, mirtazapine 7.5 mg nightly
Case management consulted for visiting nurse at home during the discharge.
CODE STATUS: DNR
DVT prophylaxis: Eliquis
disposition: [facility].
# he refused to work with PT,
# refused for the full dialysis.
# disposition: home.
Anticipated Discharge: Today
Subjective/Interval History
-
Date of Service: October 05, 2025
Overnight he he has concern for chronic abdominal pain, fatigue, dizziness, diarrhea. However checked with overnight nurse who reported no episodes of diarrhea, for the pain they administered morphine 1 dosage. His vitals are stable.
# he refused to work with PT, and therapy recommending long term.
# refused for the full dialysis for 3 yrs.
# Dr. Xiao spoke with the daughter on phone: regards his partial dialysis for the past 3 yrs because of dizziness, and not willing to go to SNF, not willing to accept physical therapy.
Objective Data
-
Labs:
Laboratory Results
10/05/25
06:49
WBC Pending
Hgb Pending
Hct Pending
Plt Count Pending
Sodium Pending
Potassium Pending
Chloride Pending
Carbon Dioxide Pending
BUN Pending
Creatinine Pending
Glucose Pending
Calcium Pending
Total Bilirubin Pending
AST Pending
ALT Pending
Alkaline Phosphatase Pending
Vital Signs:
Vital Signs
Temp Pulse Resp BP Pulse Ox
98.7 F 85 18 142/54 93
10/05/25 03:00 10/05/25 03:00 10/05/25 03:00 10/05/25 03:00 10/05/25 03:00
I&O
10/04/25 10/05/25 10/06/25
06:59 06:59 06:59
Intake Total 1500 / 1500 210 / 210
Balance 1500 / 1500 210 / 210
Physical Exam
-
General: Well Developed and Obese
Respiratory: Clear to Auscultation
Cardiac: Regular Rhythm and S1/S2
GI: Soft, Nontender and Nondistended
Genito-urinary: No Costovertebral Tender
Musculoskeletal: No Clubbing and No Edema
Skin: Warm
Neuro: AO x 3
Hematologic / Lymphatic: No Lymphadenopathy
Psych: Calm
[2025-10-05 07:18] LABS: Hematocrit 25.6 % (39.0-52.0); Hemoglobin 8.2 g/dL (13.0-18.0); Mean Corp Hgb Conc. 32.0 g/dL (33.0-37.0); Mean Corpuscular Volume 95.5 fL (80.0-94.0); Platelet Count 157 10^3/uL (130-400); Red Cell Dist. Width 17.4 % (11.5-14.5)
[2025-10-05 07:43] LABS: ALT (SGPT) 52 U/L (0-50); AST (SGOT) 26 U/L (17-59); Albumin 3.8 g/dl (3.5-5.0); Alkaline Phosphatase 86 U/L (38-126); Blood Urea Nitrogen 38 mg/dl (9-20); Calcium 8.1 mg/dl (8.4-10.2); Carbon Dioxide 29 mmol/L (22-30); Chloride 97 mmol/L (98-107); Estimated Creatinine Clearance 8 ml/min; Glucose 108 mg/dl (70-99); Potassium 4.5 mmol/L (3.5-5.1); Sodium 138 mmol/L (135-145); Total Protein 6.2 g/dl (6.3-8.2); eGFR 7.95
[2025-10-05 07:57] VITALS: BP 134/57
[2025-10-05] MEDS: LIPITOR 80 MG PO (08:06)
[2025-10-05] MEDS: PROTONIX 40 MG PO (08:06)
[2025-10-05] MEDS: AUGMENTIN 500 MG/125 MG 1 TABLET PO (08:06)
[2025-10-05] MEDS: COREG 6.25 MG PO (08:06)
[2025-10-05] MEDS: THERAGRAN 1 TABLET PO (08:06)
[2025-10-05] MEDS: ELIQUIS 2.5 MG PO (08:06)
[2025-10-05] MEDS: FLOMAX 0.4 MG PO (08:06)
[2025-10-05] MEDS: PHOSLO 1334 MG PO (08:06)
[2025-10-05] MEDS: NORVASC 5 MG PO (08:07)
--- NOTE | 2025-10-05 10:16 | CM ---
Addendum entered by Katya Houser 10/05/25 13:04:
Met with daughter at bedside; she will provide transport home
IMM explained; form signed @ 1305
Plan: discharge to home with VNA; VN/PT/OT
Original Note:
CM spoke with patient's daughter, Elle; she wants patient to go to rehab; per CM notes, patient refused
SNF site options in the [facility] with HD support were identified; daughter agreeable to a referral being sent to [facility]
[2025-10-05 11:21] VITALS: BP 142/61
--- NOTE | 2025-10-05 17:02 | W.DCSUMMARY ---
Addendum entered and electronically signed by Bridgette Xiao MD 10/06/25 06:57:
Read, reviewed, and agree. See same day progress note for additional details. Time spent coordinating care, DC planning, review of DC plan of care with resident, transition of care, review of records in EMR, med rec, consults, notes, d/w
consultants, nursing, family, and CM = 45 minutes
Original Note:
Discharge Summary
Discharge Data
Date of Admission: 09/30/25
Date of Discharge: 10/05/25
Total time spent discharging patient (in min): 45-minute
-
Pending Results: Yes
Additional Pending Results:
Discharging Physician : Dr. Xiao, Bridgette Burrell MD
Shannan Gonzales MD
Disposition : Home with visiting nurse
Primary care physician : Dr. Jose Tamez MD
Principal Discharge diagnosis : Enteritis
Chronic Discharge diagnosis :
# End-stage renal disease on hemodialysis-receiving partial hemodialysis for the past 3 years because he is unable to complete a 4-hour dialysis treatment due to intolerance of dizziness/weakness.
# Anemia of chronic kidney disease--no signs of active bleeding
# Chronic ambulatory dysfunction/recurrent falls/bilateral hearing loss--history of prior CVA with chronic left arm weakness
# Essential hypertension--continued Coreg 6.25 mg twice daily, amlodipine 5 mg with hold parameters--losartan held due to hyperkalemia, at the time of discharge restart her losartan and close follow-up with trust accounts supervisor in future.
# Paroxysmal A-fib/right bundle branch block--EKG shows chronic T wave inversions, QTc 490--continue Eliquis 2.5 mg twice daily.
# Chronic heart failure with mildly reduced ejection fraction 40% with stage II diastolic dysfunction--volume controlled by HD
# BPH--continue tamsulosin
# Depression/anxiety/insomnia--continue Zoloft 50 mg twice daily, mirtazapine 7.5 mg nightly
# Hyperlipidemia--continue atorvastatin
Hospital Course :
On 84-year-old male with past medical history of paroxysmal A-fib on Eliquis, hyperlipidemia, end-stage renal disease on hemodialysis(Friday, , Friday), essential hypertension, chronic heart failure with mildly reduced
ejection fraction, BPH, depression presented to ER with symptoms of watery brown diarrhea, vomiting, abdominal pain. Denied hematic emesis, fever, chills, dizziness, chest pain, palpitation, cough, shortness of breath, rash. He lives alone at his
home, he was brought by her daughter. Initial workup was done for the blood culture, CBC, CMP no significant findings. Stool culture collected at the course of admission when he had a bowel movement. Stool culture negative for C. difficile,
norovirus. IV Zosyn started. Social Work Supervisor was consulted for hemodialysis, 2 partial hemodialysis was done at the hospitalization. CT scan with enteritis results Zosyn started with renal dosed and while on discharge switch to Augmentin renally
adjusted dosage for 7 days of antibiotic course to complete. Patient was stable at the time of discharge and requested to follow-up with outpatient manufacturing industrial engineer, trust accounts supervisor, PCP within [address] Xiao spoke with patient daughter Elle, she would like patient to go to assisted facility for rehab. Patient is not agreeable. He only wants to go home. I have no reason to believe that he is unable to make informed medical
decisions. Therefore, I cannot send him any please he does not wish to go.
CODE STATUS--DNR
DVT prophylaxis--Eliquis at hospitalization time.
Disposition-Home
IMPORTANT:
If your symptoms worsen when you get home, go to the Emergency Room if you cannot reach a doctor, or call 911
Important imaging findings :
CT abdomen pelvis: 1. Limited evaluation of intestinal tract without oral contrast with some nondistended fluid-filled loops of small bowel and some liquid stool particularly in the right colon, intestinal tract nonobstructed.
No free air. Findings overall could represent ENTERITIS.
2. Diverticulosis of the descending and sigmoid colon.
3. Relative atrophic kidneys bilaterally non-excreting. Small right renal nonobstructing calculi versus atherosclerotic vascular calcification. Small simple right renal cysts. Additional bilateral subcentimeter
low-attenuation renal lesions too small to characterize.
Procedure findings : 2 days of partial hemodialysis on 10/01, 10/04.
Discharge Plan
-
Patient Disposition: Home with Home Care
Discharge Diagnosis/Procedures: Enteritis, end-stage renal disease on hemodialysis, anemia of chronic disease, chronic ambulatory dysfunction, essential hypertension, paroxysmal atrial fibrillation with right bundle branch block, chronic heart
failure with mildly reduced ejection fraction without exacerbation along with stage II diastolic dysfunction, benign prostatic hyperplasia, hyperlipidemia, depression/anxiety/insomnia
Condition: Fair
Diet: Low Sodium and 2 Gram Sodium
Additional Diets: Less than 2 g sodium, 2 g potassium
Activity: No restrictions
Driving Restrictions: As prior to admission
Bathing Restrictions: None
Blood Work: CBC, CMP 5-7 days after discharge
Other Services: VN
Specialty Instructions: Weigh Daily- Call MD for wt gain/loss 3 lbs overnight/5 lbs in 1 week
Instructions: Hemodialysis, End-stage kidney disease (kidney failure)
Referrals:
Ed Winston MD [Active, Gastroenterology] - in two to four weeks
Jose Tamez MD [Family Provider, Family Practice] - in less than 1 week
Turner Vargas MD [Active, Nephrology]
Referral Note: as per usual for HD
Additional Discharge Medication Instructions: Continue Augmentin and complete the course until 10/04.
Follow-up with GI regards enteritis.
follow-up with outpatient trust accounts supervisor within 1-2 weeks of discharge
Follow-up with PCP 3 to 4 weeks of discharge.
Shigella, Salmonella culture results are pending, will call and update the result in future.
Prescriptions:
New
amoxicillin-pot clavulanate 500-125 mg tablet
1 tab PO BID 1 Days Qty: 3 0RF
Continued
Eliquis 2.5 MG tablet
2.5 mg PO BID Qty: 60 0RF
atorvastatin 80 MG tablet
80 mg PO DAILY
tamsulosin 0.4 MG capsule
0.4 mg PO BID
amlodipine 5 mg tablet
5 mg PO DAILY Qty: 30 11RF
furosemide 80 mg Tablet
80 mg PO BID
losartan 25 mg Tablet
25 mg PO DAILY
carvedilol [Coreg] 6.25 mg tablet
6.25 mg PO BID Qty: 90 3RF
therapeutic multivitamin Tablet
1 tab PO DAILY
calcium acetate 668 mg (169 mg calcium) Tablet
1,336 mg PO DAILY
acetaminophen [Tylenol] 325 mg Tablet
650 mg PO Q6HPRN PRN (Reason: mild pain)
loperamide 2 mg Tablet
2 mg PO BIDPRN PRN (Reason: dirrhea)
diphenhydramine HCl [Benadryl] 25 mg Capsule
25 mg PO DAILYPRN PRN (Reason: allergies)
hydroxyzine HCl 10 mg Tablet
10 mg PO HS
Discharge Orders:
Discharge Patient (As Directed); Ordered 10/05/25
Ordered By: Shannan Arce
Discharge Date and Time
Discharge Date/Time: 10/05/25 13:54
Print Language: PAKISTANI
== END 2025-10-05 13:54 | disposition home health service (06) | DRG 391 ==
LOC: 2 NORTH 18:42
PROVIDERS: Clinical Nurse Specialist Family Health; Emergency Medicine; ADMITTING PHYSICIAN Hospitalist; ATTENDING PHYSICIAN Internal Medicine; CONSULT PHYSICIAN Internal Medicine; EMERGENCY PHYSICIAN Student in an Organized Health Care Education/Training Program; FAMILY PHYSICIAN Family Medicine
PROC: 5A1D70Z Performance of Urinary Filtration, Intermittent, Less than 6 Hours Per Day (ICD-10-PCS; 2025-10-01)
DX: K52.9 Noninfective gastroenteritis and colitis, unspecified (principal); N18.6 End stage renal disease; I13.2 Hypertensive heart and chronic kidney disease with heart failure and with stage 5 chronic kidney disease, or end stage renal disease; I50.32 Chronic diastolic (congestive) heart failure; E87.1 Hypo-osmolality and hyponatremia; D63.1 Anemia in chronic kidney disease; I25.10 Atherosclerotic heart disease of native coronary artery without angina pectoris; E87.5 Hyperkalemia; E78.00 Pure hypercholesterolemia, unspecified; N40.0 Benign prostatic hyperplasia without lower urinary tract symptoms; I48.0 Paroxysmal atrial fibrillation; F41.9 Anxiety disorder, unspecified; F32.A Depression, unspecified; Z66 Do not resuscitate; I45.10 Unspecified right bundle-branch block; Z79.899 Other long term (current) drug therapy; Z79.01 Long term (current) use of anticoagulants; Z86.718 Personal history of other venous thrombosis and embolism; Z87.891 Personal history of nicotine dependence; Z91.199 Patient's noncompliance with other medical treatment and regimen due to unspecified reason; Z95.1 Presence of aortocoronary bypass graft; Z95.5 Presence of coronary angioplasty implant and graft; Z99.2 Dependence on renal dialysis
CPT/HCPCS: 74177; 80053; 83690; 83735; 84100; 85025; 85027; 87045; 87046; 87070; 87077; 87324; 87427; 87449; 87798; 93005; 96365; 96375; 97163; 97167; 99285; G0257; P9047; Q5106; Q9967

== ENCOUNTER 2025-10-20 07:18 | Inpatient (IN) | payer MEDICARE, SELFPAY ==
[2025-10-18 15:00] VITALS: BP 124/57
--- NOTE | 2025-10-18 15:26 | ED.GENMED ---
History of Present Illness
General
Chief Complaint: Weakness
Source: patient, records and family
Time Seen by Provider: 10/18/25 15:06
History of Present Illness
History of Present Illness:
This patient is an 85-year-old male was brought into the hospital by EMS. Patient states that he is had 3 falls in the last few days. He had 2 falls on Friday early in the morning, each involving falling down 5 steps. He did not hit his head at
that time. When he told his daughter about the events he declined to go to the emergency department and as per the daughter did not have any complaints. Today he went to dialysis and says that he lasted about 3-1/2 hours before coming home. He
has a history of chronic dizziness and instability and says that he lost his balance, fell backwards, and hit his head. He had his phone with him at the time and rang his daughter who came over and then medics were called for lift assist. Patient
does have complaints of a mild posterior headache as well as discomfort in his mid back. He denies abdominal pain, nausea, vomiting, fever, chills, neck pain, chest pain, dyspnea, new leg swelling, or other complaints. Patient is compliant with
his Eliquis as well as other medications.
Past History
Past History
ED Past Medical History: Arrthythmia (Atrial fib), CAD, CHF, CVA (Left sided weakness slight), HTN, Hypercholesterolemia, NIDDM, SC, Renal failure (Dialysis Friday and Friday) and Other (TIA 2002, Diverticulosis, Anemia, right central retinal
artery occlusion)
ED Past Surgical History: Cardiac (Cardiac stents, LINQ device placement, CABG) and Other (Cataracts, Left arm fistula)
Social History
Tobacco: Former smoker
Alcohol: None
Drug: None
Personal:
Living: alone
Employment: Retired
Family History
Family History: Other (Reviewed and noncontributory)
Phy Exam
Physical Exam
Physical Exam:
GENERAL: Alert , in no apparent distress
EYE: pupils equal and reactive, no photophobia, EOMI, no nystagmus
NECK: Supple, no significant adenopathy, questionable mild midline tenderness at approximately C4 area.
ENT: o/p clr, mmm.
CARDIAC: Regular rate and rhythm .
LUNGS: Clear breath sounds bilaterally, no acute respiratory distress, no wheezes/rales/rhonchi
ABDOMEN: Soft, without focal tenderness, no r/g, no cvat
NEUROLOGICAL: Alert and oriented to person place and time and in fact reminds me that today is his birthday!, grossly nonfocal
SKIN: Warm and dry, superficial skin abrasions noted at bilateral louis/lower knee area as well as right dorsal distal arm without associated deformity bony tenderness or limitation range of motion. Patient does have limitation in range of left
shoulder due to weakness but I am able to range passively without difficulty
MUSCULOSKELETAL: Trace bilateral lower extremity edema, well perfused.
PSYCH: Normal and appropriate interaction.
Course
Orders/Labs/Results
Orders:
Orders
10/18/25 15:24
Case Management Consult ONCE
Case Management Consult: Discharge Planning
Pt Eval And Treat Urgent
Activity Level: Ambulate
10/18/25 15:25
Electrocardiogram (*1) Urgent
Reason for Study: Other
Other Reason for Exam: sepsis
CT Head W/o Iv Contrast Urgent
Comment:
Reason For Exam: fall
Cardiac Monitoring- Treatment ONCE
EKG- Treatment ONCE
Urinalysis Reflex To Culture Urgent
CR Chest - 2 Views Urgent
Comment:
Reason For Exam: fall
CR Thoracic Spine 3 Views Urgent
Reason For Exam: fall
Cervical Spine 4 or 5 Vw [CR Cervical Spine 4 Or 5 Vw] Urgent
Comment:
Reason For Exam: fall
Lumbar Spine Complete, 4 View [CR Lumbar Spine Comp Min 4 Vw*] Urgent
Comment:
Reason For Exam: fall
10/18/25 15:28
Morphine Sulfate 4 mg IV NOW STA
10/18/25 15:29
COVID-19 Antigen Urgent
Source: Nasal Swab
Complete Blood Count/With Diff Urgent
Comprehensive Metabolic Panel Urgent
Manual Differential Urgent
Troponin I Urgent
Influenza A+B Rapid Molecular Urgent
DREW Source: Nasal Swab
Specimen Description:
10/18/25 17:11
Morphine Sulfate 2 mg .ROUTE .STK-MED ONE
10/18/25 17:12
Morphine Sulfate 2 mg IV NOW STA
10/18/25 18:21
Ondansetron Injectable [Zofran] 4 mg .ROUTE .STK-MED ONE
10/18/25 18:23
Ondansetron Injectable [Zofran] 4 mg IV NOW STA
Abnormal Lab Results
10/18/25
15:29
RBC 3.43 L 10^6/uL
(4.70-6.10)
Hgb 10.6 L g/dL
(13.0-18.0)
Hct 33.3 L %
(39.0-52.0)
MCV 97.1 H fL
(80.0-94.0)
MCHC 31.8 L g/dL
(33.0-37.0)
RDW 19.7 H %
(11.5-14.5)
MPV 11.2 H fL
(7.4-10.4)
Abs Neuts (Manual) 6.6 H 10^3/uL
(1.4-6.5)
Lymphocytes (Manual) 7 L %
(20-51)
Monocytes (Manual) 16 H %
(2-9)
Chloride 93 L mmol/L
(98-107)
Carbon Dioxide 33 H mmol/L
(22-30)
BUN 25 H mg/dl
(9-20)
Creatinine 4.2 H* mg/dL
(0.7-1.3)
Glucose 130 H mg/dl
(70-99)
Troponin I 0.049 H* ng/ml
10/18/25 15:29
10/18/25 15:29
Vital Signs
Initial and Last Documented VS:
Initial Vital Signs
Temp Pulse Resp BP Pulse Ox
97.9 F 81 20 124/57 95
10/18/25 15:00 10/18/25 15:00 10/18/25 15:00 10/18/25 15:00 10/18/25 15:00
Last Documented Vital Signs
Temp Pulse Resp BP Pulse Ox
97.9 F 75 15 103/53 94
10/18/25 15:00 10/18/25 17:15 10/18/25 17:15 10/18/25 16:03 10/18/25 17:15
*Pulse Oximetry
SaO2: 95
Oxygen Mode of Delivery: Room air
Update Note
Update Note:
Patient presents to the Emergency Department with __frequent falls
Number and Complexity of Problems Addressed at the Encounter
� Chronic conditions affecting care:
� Acute Exacerbation and/or Progression of Chronic Illness:
� Differential Diagnosis includes: But not limited to C-spine fracture, intracranial bleed, lumbar fracture, dehydration, electrolyte disorder, etc. etc.
Amount and/or Complexity of Data to be Reviewed and Analyzed
� I performed an independent evaluation of and my interpretation is:
EKG: Read by me, normal sinus rhythm, right bundle branch block, no acute ischemia
CT:No acute intracranial abnormalities.
Possible small old lacunar infarct in the right nitesh.
Findings again seen compatible with diffuse cortical atrophy with nonspecific white matter changes as described above.
Xrays:Marked progression of widespread degenerative changes of the lumbar spine.
No findings to suggest lumbar vertebral compression fracture.
Final report cxr and c spine nad
Laboratory Studies: Nonspecific troponin elevation without acute ischemic ECG changes or chest pain. Baseline anemia
Other:
� Review of other/old records reveals: Discharge summary from earlier this month reviewed, patient has a history of heart failure with an EF of 40%. He has the medications made and does suffer from chronic dizziness.
� Clinical information was obtained by an independent historian: Case discussed with patient's daughter over the phone, she clarifies the nature of his falls, states that she does not feel that he is safe at home given his
chronic dizziness/unsteadiness and that he lives alone on Eliquis with frequent falls. She has declined rehabs in the past but now would like to reconsider if he does not necessarily need to be hospitalized overnight. I put in a consult for both
case management and physical therapy while workup proceeds.
� Prescriptions/Medications Considered but not given:
� Further testing considered but not performed:
Risk of Complications and/or Morbidity or Mortality of Patient Management
� Social determinants of health affecting care:
� Discussion with other providers (PCP, Hospitalists, Consultants, etc):
� Escalation of care including admission/observation vs risk of discharge considered: Daughter now bedside, both patient and daughter updated regarding results. Patient was complaining of back pain however much better now. Was
seen by physical therapy and case management, not stable for home, will need placement that can also accommodate his hemodialysis. Patient awake and alert.
ED Attending Note
-
Portions of this chart may have been created with voice recognition software.� Occasional wrong word or��sound alike� substitutions may have occurred due to the inherent limitations of voice recognition software.
Discharge Plan
Departure
Patient Disposition: Admit
Date of Disposition: 10/18/25
Time of Disposition: 19:00
Presentation/result/management discussed w/ accepting MD/DO: Hospitalist
Condition: Fair
Discharge Problem:
Falls
Prescriptions:
No Action
Eliquis 2.5 MG tablet
2.5 mg PO BID Qty: 60 0RF
atorvastatin 80 MG tablet
80 mg PO DAILY
tamsulosin 0.4 MG capsule
0.4 mg PO BID
amlodipine 5 mg tablet
5 mg PO DAILY Qty: 30 11RF
furosemide 80 mg Tablet
80 mg PO BID
losartan 25 mg Tablet
25 mg PO DAILY
carvedilol [Coreg] 6.25 mg tablet
6.25 mg PO BID Qty: 90 3RF
therapeutic multivitamin Tablet
1 tab PO DAILY
calcium acetate 668 mg (169 mg calcium) Tablet
1,336 mg PO DAILY
acetaminophen [Tylenol] 325 mg Tablet
650 mg PO Q6HPRN PRN (Reason: mild pain)
loperamide 2 mg Tablet
2 mg PO BIDPRN PRN (Reason: dirrhea)
diphenhydramine HCl [Benadryl] 25 mg Capsule
25 mg PO DAILYPRN PRN (Reason: allergies)
hydroxyzine HCl 10 mg Tablet
10 mg PO HS
amoxicillin-pot clavulanate 500-125 mg tablet
1 tab PO BID 1 Days Qty: 3 0RF
Referrals:
Jose Tamez MD [Family Provider, Family Practice]
Interventions
Interventions:
*Risk Screen - Suicide Last Done: 10/18/25 15:00
*General Assessment Last Done: 10/18/25 15:00
*Neglect/Abuse Screening Last Done: 10/18/25 15:00
*ED COVID-19 Vaccine History Last Done: 10/18/25 15:15
*ED Influenza Vaccine History Last Done: 10/18/25 15:15
[facility] Fall Risk Assessment Tool Last Done: 10/18/25 15:13
ED- Neurological Assessment Last Done: 10/18/25 15:40
ED- Pulmonary Assessment Last Done: 10/18/25 15:43
Discharge Date and Time
Print Language: ITALIAN
[2025-10-18 15:27] VITALS: BMI 25.2
[2025-10-18] MEDS: MORPHINE SULFATE 4 MG IV (15:34)
--- NOTE | 2025-10-18 15:44 | EDCM ---
Addendum entered by Savanna Cook 10/18/25 18:16:
PT recommended SNF. Per Dr Escobar, pt to be admitted.
Original Note:
Received consult, reviewed chart and met with pt bedside in ED. Lives alone in [address], no KEITH.
Independent in ADLs, personal care and ambulation at baseline. Does not use assistive device but has SPC and RW.
Drives self to HD T-- at [facility].
Pt has had 3 falls in past few days.
Current with [facility] for RN, Pt, OT.
PCP: Jose Tamez
Pharmacy: [facility]
Awaiting PT consult and recommendations, CM will continue to follow.
[2025-10-18 15:56] VITALS: BP 143/57
[2025-10-18 16:01] VITALS: BP 104/52
[2025-10-18 16:03] VITALS: BP 103/53
[2025-10-18 16:06] LABS: COVID-19 Antigen Negative (Negative)
[2025-10-18 16:12] LABS: ALT (SGPT) 18 U/L (0-50); AST (SGOT) 24 U/L (17-59); Albumin 4.7 g/dl (3.5-5.0); Alkaline Phosphatase 126 U/L (38-126); Blood Urea Nitrogen 25 mg/dl (9-20); Calcium 8.9 mg/dl (8.4-10.2); Carbon Dioxide 33 mmol/L (22-30); Chloride 93 mmol/L (98-107); Estimated Creatinine Clearance 13 ml/min; Glucose 130 mg/dl (70-99); Potassium 3.8 mmol/L (3.5-5.1); Sodium 138 mmol/L (135-145); Total Protein 7.5 g/dl (6.3-8.2); Troponin I 0.049 ng/ml; eGFR 13.10
[2025-10-18 16:13] LABS: Hematocrit 33.3 % (39.0-52.0); Hemoglobin 10.6 g/dL (13.0-18.0); Mean Corp Hgb Conc. 31.8 g/dL (33.0-37.0); Mean Corpuscular Volume 97.1 fL (80.0-94.0); Platelet Count 144 10^3/uL (130-400); Red Cell Dist. Width 19.7 % (11.5-14.5)
[2025-10-18 16:17] VITALS: BP 104/52; BP 143/57; PULSE 75; PULSE 87; O2SAT 91
[2025-10-18 16:24] LABS: Absolute Neutrophils -Man Diff 6.6 10^3/uL (1.4-6.5)
[2025-10-18 16:25] LABS: Anisocytosis 1+; Normal RBC Morphology No; Platelets Checked Yes
[2025-10-18 16:30] LABS: Macrocytosis 1+; Microcytosis Slight; Ovalocytes 1+
[2025-10-18 16:31] LABS: Total Cells Counted 100
[2025-10-18] MEDS: MORPHINE SULFATE 2 MG IV (17:12)
[2025-10-18] MEDS: ZOFRAN 4 MG IV (18:23)
--- NOTE | 2025-10-18 19:49 | HPS.HSE ---
Family Physician
-
Family Physician: Jose Tamez
Chief Complaint
-
Weakness / Falls
History of Present Illness
Patient is an 85y M with PMH significant for ASCVD, hypertension, DM-II and ESRD on HD who presents to ED complaining of weakness and frequent falls. Patient was recently admitted to in September for enteritis. He was seen by PT / OT at that
time and SNF was recommended; however, he declined. Patient notes that he has fallen about 3 times in the past week. He had two falls on Friday - both falling backwards down 4-6 stairs. He struck the back of his head and his neck both time. He
denies any loss of consciousness with either. He reports prodrome of feeling lightheaded. No dizziness / room spinning. No chest pain or dyspnea. His family advised him to present to the ED at that point; however, he declined.
Patient had another fall today after exiting dialysis. This was again a fall backwards - landing on concrete and striking the back of his head. He again denies LOC, chest pain, dizziness, etc.
Patient denies any recent issues such as fevers / chills, cough, chest pain / SOB, N/V/D, etc.
Medical History
Past Medical History
Past Medical History: Reports Other
Additional Past Medical History:
ASCVD
CVA with Residual Left Hemiparesis
Hypertension
DM-II
ESRD on HD
Anemia of CKD
Paroxysmal Atrial Fibrillation
Past Surgical History: Reports Other
Additional Past Surgical History:
CABG x 3
PTCA with Stent
HD Catheter Placement / Removal
LUE AVF / Revision
Social History
Tobacco: Former Smoker (Quit smoking 60 years ago.)
Alcohol: None
Drug: None
Family History
Family History: Not pertinent
Allergies / Home Medications
Allergies reflects when Allergies were last updated in [employer].
Home Medications with original date entered in [employer]
Allergy/Medication List:
Allergies
Allergy/AdvReac Type Severity Reaction Status Date / Time
No Known Allergies Allergy Verified 05/28/25 03:54
Home Medications
apixaban 2.5 mg tablet (Eliquis) 2.5 mg PO BID blood thinner #60 tabs 05/12/21
atorvastatin 80 mg tablet 80 mg PO DAILY High cholesterol 01/03/22
tamsulosin 0.4 mg capsule 0.4 mg PO BID Urinary issue 02/08/22
amlodipine 5 mg tablet 5 mg PO DAILY Blood pressure #30 tabs 12/16/23
furosemide 80 mg tablet 80 mg PO BID Fluid Retention/Swelling 01/06/24
losartan 25 mg tablet 25 mg PO DAILY Blood Pressure 01/06/24
carvedilol 6.25 mg tablet (Coreg) 6.25 mg PO BID #90 tabs 01/09/24
calcium acetate 668 mg (169 mg calcium) tablet 1,336 mg PO DAILY hyperphosphatemia 07/04/25
therapeutic multivitamin 1 tab PO DAILY Supplement 07/04/25
acetaminophen 325 mg tablet (Tylenol) 650 mg PO Q6HPRN PRN mild pain 09/30/25
diphenhydramine HCl 25 mg capsule (Benadryl) 25 mg PO DAILYPRN PRN allergies 09/30/25
hydroxyzine HCl 10 mg tablet 10 mg PO HS Sleep 09/30/25
loperamide 2 mg tablet 2 mg PO BIDPRN PRN dirrhea 09/30/25
Review of Systems
-
History Source: Patient
A 12 point ROS was completed and negative except as noted: Yes
Constitutional: Reports Fatigue; Denies Fever or Chills
EENT: Denies Sore Throat
Respiratory: Denies Cough or Trouble Breathing
Cardiac: Denies Chest Pain or Palpitations
Abdomen/GI: Reports Abdominal Pain (LLQ pain which he states he always gets after dialysis sessions.); Denies Nausea, Vomiting or Diarrhea
: Denies Dysuria, Frequency or Flank Pain
Musculoskeletal: Reports Other (Neck 'soreness'. Low back pain. ); Denies Edema
Neurological: Reports Weakness; Denies Dizzy or Headache
Psych: Denies Depression or Anxiety
Physical Exam
Vital Signs
Vital Signs
Temp Pulse Resp BP Pulse Ox
97.9 F 75 15 103/53 94
10/18/25 15:00 10/18/25 17:15 10/18/25 17:15 10/18/25 16:03 10/18/25 17:15
Physical Exam
General: Other (85y M in no acute distress.)
HEENT: Other (Dry MM. Neck supple.)
Respiratory: Clear; No Wheezes, Rales or Rhonchi
Cardiac: S1/S2 and Regular Rhythm; No Murmur
GI: Soft, Non Distended, Normal Bowel Sounds and Other (Mild LLQ tenderness with voluntary guarding. Pos BS.)
Musculoskeletal: No Clubbing, No Cyanosis and No Edema
Skin: Other (Few superficial abrasions on the knees / elbows.)
Neuro: AO x 3 and Other (L weakness - unchanged from prior. No new focal deficits.)
Hematologic/Lymphatic: Other (LUE AVF with pos thrill / bruit.)
Laboratory Results
-
10/18/25 15:29
10/18/25 15:
Laboratory Results
Total Bilirubin 0.9 mg/dl (0.2-1.3) 10/18/25 15:29
AST 24 U/L (17-59) 10/18/25 15:
ALT 18 U/L (0-50) 10/18/25 15:29
Alkaline Phosphatase 126 U/L (38-126) 10/18/25 15:29
Troponin I 0.049 ng/ml H* 10/18/25 15:29
Impression/Plan
-
A/P: Patient is an 85y M with PMH significant for ASCVD, HTN, DM-II and ESRD on HD who presents to ED complaining of weakness and frequent falls over the past two weeks.
Ambulatory Dysfunction
Frequent Falls
- Observe overnight for further evaluation and treatment.
- Patient describes lightheaded sensation - no dizziness / vertigo.
- Imaging studies done in the ED show no acute injury, fracture, etc.
- Diffuse DDD throughout the spine.
- No new focal neurologic deficits by exam.
- PT / OT evaluations - SNF was previously recommended.
- Stop tamsulosin for now to prevent orthostasis / lightheadedness.
- Holding parameters for BP meds for same purpose.
- Follow for any clinical changes.
ESRD on HD
- Stable. Has issues tolerating complete dialysis sessions due to abdominal pain / weakness.
- Last HD today.
- Nephrology evaluation for HD needs during acute stay.
- Continue usual meds / phosphate binders / etc.
ASCVD
- Prior h/o MS and CVA with L hemiparesis.
- No new chest pain, focal neuro deficits, etc.
- Continue current CV med regimen.
Chronic HFmrEF
- Stable. Does not appear grossly volume overloaded.
- Continue furosemide for now - mostly due to fact that patient does not tolerate full / recommended HD sessions.
- Follow weights, I/Os, etc and adjust or eliminate diuretic regimen if needed.
Paroxysmal Atrial Fibrillation
- Stable. Continue carvedilol with holding parameters.
- Continue Eliquis for stroke risk reduction - may need to revisit risk : benefits if fall risk remains high.
DM-II
- Stable. Most recent A1C (summer) was < 6%. Repeat.
- Follow glucose and cover with SSI if necessary.
Benign Hypertension
- Monitor BP including orthostatic signs.
- Adjust regimen as needed to avoid hypotension / lightheadedness.
BPH
- Hold tamsulosin for now as noted above.
- Bladder scan protocol / follow for any evidence of urinary retention.
DVT Prophylaxis: SCDs
Code Status: DNR
[2025-10-18 22:41] VITALS: BMI 25.2
[2025-10-18] MEDS: TYLENOL 650 MG PO (22:46)
[2025-10-18] MEDS: COREG 6.25 MG PO (22:46)
[2025-10-18] MEDS: ATARAX 10 MG PO (22:46)
[2025-10-18] MEDS: ELIQUIS 2.5 MG PO (22:47)
[2025-10-19] VITALS (8 sets, daily range): BP systolic 110–147; BP diastolic 49–78; PULSE 74–105; O2SAT 96; BMI 23.5
[2025-10-19] MEDS: TYLENOL 650 MG PO (03:29)
--- NOTE | 2025-10-19 05:40 | PTCARENOTE ---
Pt states he feels weak. 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
[2025-10-19 07:00] LABS: Hematocrit 31.5 % (39.0-52.0); Hemoglobin 10.0 g/dL (13.0-18.0); Mean Corp Hgb Conc. 31.7 g/dL (33.0-37.0); Mean Corpuscular Volume 99.1 fL (80.0-94.0); Platelet Count 142 10^3/uL (130-400); Red Cell Dist. Width 19.6 % (11.5-14.5)
[2025-10-19 07:32] LABS: Troponin I 0.060 ng/ml
[2025-10-19 07:38] LABS: Blood Urea Nitrogen 36 mg/dl (9-20); Calcium 8.3 mg/dl (8.4-10.2); Carbon Dioxide 32 mmol/L (22-30); Chloride 92 mmol/L (98-107); Estimated Creatinine Clearance 9 ml/min; Glucose 123 mg/dl (70-99); Magnesium 2.0 mg/dl (1.6-2.3); Potassium 4.5 mmol/L (3.5-5.1); Sodium 137 mmol/L (135-145); eGFR 9.08
[2025-10-19 07:53] LABS: Glucose - Point of Care 132 mg/dl (70-99)
[2025-10-19] MEDS: NOVOLOG FLEXPEN-LOW RESISTANCE SC ×3 (07:57→17:33)
[2025-10-19 08:24] LABS: Glycohemoglobin (HgbA1c) 5.5 % (4.0-5.9)
[2025-10-19] MEDS: LASIX 80 MG PO (08:48)
[2025-10-19] MEDS: LIPITOR 80 MG PO (08:48)
[2025-10-19] MEDS: PHOSLO 1334 MG PO (08:48)
[2025-10-19] MEDS: COZAAR 25 MG PO (08:50)
[2025-10-19] MEDS: ELIQUIS 2.5 MG PO ×2 (08:51→19:48)
[2025-10-19] MEDS: COREG 6.25 MG PO ×2 (08:51→19:54)
--- NOTE | 2025-10-19 09:20 | VNURNOTE ---
Chart reviewed. Patient is current with [facility]. Will continue to follow hospital course and DC plans.
--- NOTE | 2025-10-19 10:53 | PTCARENOTE ---
Pt projectile vomited 500cc of brown/green emesis. MD made aware, Demetrice ordered. Emesis shown to MD. No new orders at this time.
[2025-10-19] MEDS: PHOSLO PO ×2 (11:03→15:30)
--- NOTE | 2025-10-19 11:17 | CM ---
Chart reviewed. Discussed w/ PT/OT, rec SNF for patient, multiple falls at home. Cognitive concerns at this time.
Met w/ patient bedside, confirmed that his daughter does assist him w/ food shopping and medications
Reviewed SNF recommendation, patient agreeable
Patient admitted under obs services. [facility] form verbally reviewed, copy provided, copy on chart
Spoke w/ patient's daughter, Elle, reviewed SNF rec and therapy concerns w/ patient residing alone. Elle stated she would like patient to stay in [place] and prefers [facility] as she is aware that they offer HD on site. Referral placed
in [facility]
Elle asking for hospitalist to give a call to updater her. TT to hospitalist making aware
Patient will need insurance auth
Plan: SNF w/ HD
[2025-10-19] MEDS: TIGAN 200 MG IM ×2 (12:08→19:50)
[2025-10-19 12:24] LABS: Glucose - Point of Care 152 mg/dl (70-99)
[2025-10-19 12:24] LABS: Glucose - Point of Care 136 mg/dl (70-99)
[2025-10-19 12:29] LABS: Troponin I 0.170 ng/ml
--- NOTE | 2025-10-19 12:49 | W.PN.HOSP.TC ---
Today's Communication/Plan
-
see outlined plan below
Assessment / Plan
Assessment / Plan
Assessment:
Ambulatory Dysfunction
Frequent Falls
- Patient describes lightheaded sensation - no dizziness/vertigo.
- Imaging studies done in the ED show no acute injury, fracture, etc.
- Diffuse DDD throughout the spine.
- No new focal neurologic deficits by exam.
- PT/OT evaluations - SNF was previously recommended but patient declined during last admission
- Orthostatic vital signs positive on 10/19. continue to follow orthostatic vital signs; agree to stop Tamsulosin, also holding Amlodipine. Will add compression stockings.
- follow BP; may need adjustments of BP meds
Nausea/vomiting/Diarrhea
- recent Enteritis 2 weeks ago; completed antibiotics with symptomatic improvement
- symptoms reoccurred Since
- will start with obstruction series/AXR
- may need repeat CT with IV contrast, and if feasible, oral contrast
- if diarrhea, will send stool studies
- Prn Tigan IM; QTC 500 precludes other anti-emetics at present
Chronic SOB and chest pain with ambulation
Chronically elevated troponin, type 2 demand ischemia in setting of ESRD
Hx of CAD s/p CABG
- trend trops to peak
- check Echo
- last noted ischemic eval [facility] 2023; patient vessels
ESRD on HD
- Stable. Has issues tolerating complete dialysis sessions due to abdominal pain / weakness.
- Nephrology evaluation for HD needs during acute stay.
- Continue usual meds/phosphate binders/etc.
Hx of CVA with L hemiparesis.
- No new chest pain, focal neuro deficits, etc.
- Continue current CV med regimen.
Chronic HFmrEF
- Stable. Does not appear grossly volume overloaded.
- Continue furosemide for now - mostly due to fact that patient does not tolerate full/recommended HD sessions. Consider reducing from BID to daily dosing.
- Follow weights, I/Os, etc and adjust or eliminate diuretic regimen if needed.
Paroxysmal Atrial Fibrillation
- Stable. Continue carvedilol with holding parameters.
- Continue Eliquis for stroke risk reduction - may need to revisit risk:benefits if fall risk remains high.
DM-II
- Stable. Most recent A1C (summer) was < 6%. Repeat 5.5%
- Follow glucose and cover with SSI if necessary.
Benign Hypertension
- Monitor BP including orthostatic signs.
- Adjust regimen as needed to avoid hypotension/lightheadedness.
BPH
- Hold tamsulosin for now as noted above.
- Bladder scan protocol/follow for any evidence of urinary retention.
DVT Prophylaxis: SCDs
Code Status: DNR/DNI
Anticipated Discharge: > 48 hours
Subjective/Interval History
-
Date of Service: October 19, 2025
vomited brown food stuff earlier today, about 90 minutes after breakfast, no blood noted
reports ongoing nausea, abdominal discomfort
Endorses lightheadedness with walking which has led to falls, also endorses period chest pain and SOB with walking
denies fever/chills
Is compliant with // HD
Objective Data
-
Labs:
Laboratory Results
10/19/25
06:31
WBC 12.7 H
Hgb 10.0 L
Hct 31.5 L
Plt Count 142
Sodium 137
Potassium 4.5
Chloride 92 L
Carbon Dioxide 32 H
BUN 36 H
Creatinine 5.7 H*
Glucose 123 H
Calcium 8.3 L
Vital Signs:
Vital Signs
Temp Pulse Resp BP Pulse Ox
99.0 F 85 16 137/49 95
10/19/25 12:31 10/19/25 12:31 10/19/25 12:31 10/19/25 12:31 10/19/25 12:31
I&O
10/18/25 10/19/25 10/20/25
06:59 06:59 06:59
Output Total 450 / 450
Balance -450 / -450
Physical Exam
-
General: No Apparent Distress
HEENT: Normocephalic and Atraumatic
Respiratory: Clear to Auscultation; Negative Wheezes
Cardiac: Regular Rhythm and S1/S2
GI: Soft, Nondistended and Tender (diffusely)
Genito-urinary: No Costovertebral Tender
Neuro: AO x 3
Psych: Calm
Data Reviewed
-
Total Time Spent with Patient (in minutes): 44
Labs: Labs Reviewed by me
--- NOTE | 2025-10-19 14:46 | W.CON.NEPH ---
Consultation
-
Date/Time Consultation Requested: 10/19/2025 9 AM
Date/Time Consultation Performed: 10/19/2025 10 AM
Requesting Provider: Dr. Aceves
Performing Provider: Dr. Vargas
Reason for Consultation: ESRD
Medical History
-
Chief Complaint: Abd pain and diarrhea
History of Present Illness:
85-year-old male with hypertension, ESRD on TTS through AVF with better compliance lately, ROB therapy on dialysis for his anemia of chronic kidney disease and is chronically anticoagulated for paroxysmal A-fib. He also has CAD status post PCI to
the RCA. He is also status post CABG in 2017, CVA. He was seen at dialysis yesterday and out poorly. He says that he had been nauseous for a few days. He also reports lightheadedness though his blood pressures on dialysis were normal. He did
not have significantly high weight gains that we have contributed as well. He says that he vomits whenever he eats though he has no issues with fluids and pills overall. He also has fallen at home twice at least over the last weekend once hitting
his neck on a chair. He denies any other injuries.
Past Medical History
Status post RCA stent on 11/26/23
[facility] [place]
Diarrhea chronic
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
Hypertension
Atrial fibrillation
BPH
Anemia of CKD
CAD/CABG 2016
Cerebrovascular disease
TIA 2002
History ESBL Klebsiella pneumoniae UTI
Gout
Medical noncompliance (allows only two 3-hour HD treatments weekly)
Past Surgical History: Other (Stent March 2017, drug-eluting stent, multiple stents and PCI 2 stents to circumflex and PDA on 05/26/2008, 07/31/2011 CABG x 3 vessel GALVEZ to LAD, vein graft OM [address] Wilkes 05/19/2017 AV fistula
11/03/2020, left arm fistulogram 01/05/2021, 04/13/2021 Stenting left upper extremity brachi)
Social History
Tobacco: Former Smoker
Alcohol: None
Family History
no ckd
Family History: Not Pertinent
Allergies / Home Medications
Allergy/AdvReac Type Severity Reaction Status Date / Time
No Known Allergies Allergy Verified 05/28/25 03:54
�Medication �Instructions �Recorded �Confirmed �Type
apixaban 2.5 mg tablet (Eliquis) 2.5 mg PO BID blood thinner #60 05/12/21 10/18/25 Rx
tabs
atorvastatin 80 mg tablet 80 mg PO DAILY High cholesterol 01/03/22 10/18/25 History
tamsulosin 0.4 mg capsule 0.4 mg PO BID Urinary issue 02/08/22 10/18/25 History
amlodipine 5 mg tablet 5 mg PO DAILY Blood pressure #30 12/16/23 10/18/25 Rx
tabs
furosemide 80 mg tablet 80 mg PO BID Fluid 01/06/24 10/18/25 History
Retention/Swelling
losartan 25 mg tablet 25 mg PO DAILY Blood Pressure 01/06/24 10/18/25 History
carvedilol 6.25 mg tablet (Coreg) 6.25 mg PO BID #90 tabs 01/09/24 10/18/25 Rx
calcium acetate 668 mg (169 mg 1,336 mg PO DAILY hyperphosphatemia 07/04/25 10/18/25 History
calcium) tablet
therapeutic multivitamin 1 tab PO DAILY Supplement 07/04/25 10/18/25 History
acetaminophen 325 mg tablet 650 mg PO Q6HPRN PRN mild pain 09/30/25 10/18/25 History
(Tylenol)
diphenhydramine HCl 25 mg capsule 25 mg PO DAILYPRN PRN allergies 09/30/25 10/18/25 History
(Benadryl)
hydroxyzine HCl 10 mg tablet 10 mg PO HS Sleep 09/30/25 10/18/25 History
loperamide 2 mg tablet 2 mg PO BIDPRN PRN dirrhea 09/30/25 10/18/25 History
Review of Systems
-
All other systems: Negative unless noted
Physical Exam
Vital Signs
Vital Signs
Temp Pulse Resp BP Pulse Ox
99.0 F 85 16 137/49 95
10/19/25 12:31 10/19/25 12:31 10/19/25 12:10/19/25 12:10/19/25 12:31
Lab Results
WBC 12.7 10^3/uL (4.8-10.8) H 10/19/25 06:31
RBC 3.18 10^6/uL (4.70-6.10) L 10/19/25 06:31
Hgb 10.0 g/dL (13.0-18.0) L 10/19/25 06:31
Hct 31.5 % (39.0-52.0) L 10/19/25 06:31
Plt Count 142 10^3/uL (130-400) 10/19/25 06:31
Sodium 137 mmol/L (135-145) 10/19/25 06:31
Potassium 4.5 mmol/L (3.5-5.1) 10/19/25 06:31
Chloride 92 mmol/L (98-107) L 10/19/25 06:31
Carbon Dioxide 32 mmol/L (22-30) H 10/19/25 06:31
BUN 36 mg/dl (9-20) H 10/19/25 06:31
Creatinine 5.7 mg/dL (0.7-1.3) H* 10/19/25 06:31
eGFR 9.08 10/19/25 06:31
Glucose 123 mg/dl (70-99) H 10/19/25 06:31
Calcium 8.3 mg/dl (8.4-10.2) L 10/19/25 06:31
Phosphorus 5.8 mg/dl (2.5-4.5) H 10/19/25 06:31
Albumin 4.7 g/dl (3.5-5.0) 10/18/25 15:29
Physical Exam
Patient is awake alert oriented and in no distress. Mood and affect were pleasant, insight and judgment were good. Pupils are equal round and reactive to light, extraocular movements are intact, sclera were anicteric. Hearing was normal, ears and
nose are intact. Oropharynx was clear. Neck was supple with trachea midline and no thyromegaly. Heart was regular rate and rhythm without rubs. Lower extremities without edema. Lungs were clear to auscultation bilaterally and with normal
excursion. Abdomen was soft, nontender, with normal active bowel sounds, and no hepatosplenomegaly. Skin was without rash and with normal turgor.
Data Reviewed
-
Radiology: Image Personally Visualized and interpreted (Chest x-ray 10/19/2025 by my reading no acute disease) and Report Reviewed by me (Thoracic and lumbar's x-ray 10/18/25 degenerative changes DEXA scoliosis no fracture)
CT Scan: Report Reviewed by me (CT head 10/18/2025 no acute disease)
Labs: Labs Reviewed by me
Old Records: Reviewed
Assessment/Plan
-
Impression:
ESRD TTS [facility] in [place]
HTN
AV fistula last fistulogram 02/2025
BPH
Anemia of chronic disease/ESRD
CAD/NM/CABG s/p stent 11/2023
RBBB
Paroxysmal A-fib
Chronic diastolic CHF
dizziness
Poor sleep
Vomiting
Plan:
Next dialysis tomorrow
Likely will need GI evaluation, history of Schatzki's ring
Reduce Lasix
Follow blood pressures and orthostatic readings
[2025-10-19] MEDS: MORPHINE SULFATE 1 MG IV ×2 (15:40→19:48)
--- NOTE | 2025-10-19 17:41 | CON.GI ---
Addendum entered and electronically signed by Jb Burroughs MD 10/19/25 19:04:
I personally performed a history and physical exam of the patient and discussed management with the resident. I reviewed the resident's note and agree with the documented findings and plan of care HPI/CC.
This is an 85-year-old male past medical history of end-stage renal disease on dialysis, A-fib on Eliquis with recent hospitalization in September with abdominal pain, diarrhea, vomiting, leukocytosis found to have enteritis. He was discharged with
antibiotics and initially did well but 3 days after he finished antibiotics his nausea and vomiting persisted. He is having diffuse abdominal pain and he states now he is abdominal pain was ongoing since his last admission. Pain is diffuse and he
is tender on exam. He seems very uncomfortable when I went to examine him. He states he is constipated and did not have a bowel movement since yesterday. He has a leukocytosis to 12.7 which is up from 8.9 yesterday, troponin leak which has been
trending upwards up to 0.17. Hospitalist ordered an x-ray which showed nonspecific gaseous distention of several bowels a loop, paucity of gas within the colon, cannot rule out small bowel obstruction. Patient seems very uncomfortable and with
acute symptoms will get CT scan to ensure no small bowel obstruction. If he is able to tolerate p.o. we will do so if not we will just do with IV contrast. He is a dialysis patient. If CT is negative, we could consider eventual endoscopy for
further evaluation pending findings. Last endoscopy was done in 2017.
I discussed with the hospitalist.
Original Note:
Consultation
-
Date/Time Consultation Requested: 10-19-25
Date/Time Consultation Performed: 10-19-25
Requesting Provider: Dr. Trinity Kamara
Performing Provider: Dr. Jb Burroughs
Reason for Consultation: N&V
Medical History
Chief Complaint / HPI
Chief Complaint: N&V
History of Present Illness:
Israel Frost, 85-year-old with medical history significant for end-stage kidney disease on HD TTS, Afib on apixaban and recent admission to [facility] for enteritis about 2-3 weeks ago, was admitted to the hospital with weakness and frequent falls.
During his previous hospitalization, he was treated for enteritis for piperacillin-tazobactam which was transitioned to amoxicillin-clavulanate for a total of 7 days of antibiotics. At that admission, he complained of nausea, vomiting, abdominal
pain and diarrhea - all of which had improved by the time of discharge. He was sent home to complete 3 days of amox-clav. Independent of increased falling in the past week, he developed intermittent nausea around 10-12-25, which is 3 or so days
after he completed antibiotics. He was still moving his bowels daily and regularly. When he got admitted this time, on 10-18-25, he was nauseous intermittently but able to tolerate food and moving bowels. His nausea became acutely worse on 10-19-25
with abdominal pain and he could not tolerate oral intake. He also has not been able to have a bowel movement today. CR obstruction series showed nonspecific distention of small bowel. New leukocytosis with WBC 12.7 today (8.9 yesterday).
Past Medical History
Past Medical History: Other (Arrhythmia (PAROX AFib on eliquis), CAD (cabg), CVA, HTN, Hypercholesterolemia and Renal Failure (on HD ))
Past Surgical History: Other (CABG)
Social History
Tobacco: Former Smoker
Alcohol: Occasional
Family History
Family History: Reviewed & Not Pertinent
Allergies / Home Medications
Allergy/AdvReac Type Severity Reaction Status Date / Time
No Known Allergies Allergy Verified 05/28/25 03:54
�Medication �Instructions �Recorded
apixaban 2.5 mg tablet (Eliquis) 2.5 mg PO BID blood thinner #60 05/12/21
tabs
atorvastatin 80 mg tablet 80 mg PO DAILY High cholesterol 01/03/22
tamsulosin 0.4 mg capsule 0.4 mg PO BID Urinary issue 02/08/22
amlodipine 5 mg tablet 5 mg PO DAILY Blood pressure #30 12/16/23
tabs
furosemide 80 mg tablet 80 mg PO BID Fluid 01/06/24
Retention/Swelling
losartan 25 mg tablet 25 mg PO DAILY Blood Pressure 01/06/24
carvedilol 6.25 mg tablet (Coreg) 6.25 mg PO BID #90 tabs 01/09/24
calcium acetate 668 mg (169 mg 1,336 mg PO DAILY hyperphosphatemia 07/04/25
calcium) tablet
therapeutic multivitamin 1 tab PO DAILY Supplement 07/04/25
acetaminophen 325 mg tablet 650 mg PO Q6HPRN PRN mild pain 09/30/25
(Tylenol)
diphenhydramine HCl 25 mg capsule 25 mg PO DAILYPRN PRN allergies 09/30/25
(Benadryl)
hydroxyzine HCl 10 mg tablet 10 mg PO HS Sleep 09/30/25
loperamide 2 mg tablet 2 mg PO BIDPRN PRN dirrhea 09/30/25
Review of Systems
-
All other systems: A 12 pt ROS was Negative except as stated above in HPI
Vital Signs
Temp Pulse Resp BP Pulse Ox
99.0 F 90 19 144/57 95
10/19/25 15:40 10/19/25 15:40 10/19/25 15:40 10/19/25 15:40 10/19/25 15:40
Physical Exam
Exam
General: No Apparent Distress and Comfortable
HEENT: Normocephalic, Anicteric and Atraumatic
Respiratory: Clear and Non Labored Respirations
Cardiac: S1/S2 and Irregular Rhythm
GI: Soft, Non Distended and Tender (lower/pelvic > upper abdomen)
Musculoskeletal: No Clubbing, No Cyanosis and No Edema
Neuro: Awake, Alert, Oriented and Nonfocal/Grossly Intact
Psych: Calm
Results
WBC 12.7 10^3/uL (4.8-10.8) H 10/19/25 06:31
Hgb 10.0 g/dL (13.0-18.0) L 10/19/25 06:
Hct 31.5 % (39.0-52.0) L 10/19/25 06:31
MCV 99.1 fL (80.0-94.0) H 10/19/25 06:31
Plt Count 142 10^3/uL (130-400) 10/19/25 06:
Sodium 137 mmol/L (135-145) 10/19/25 06:
Potassium 4.5 mmol/L (3.5-5.1) 10/19/25 06:
Chloride 92 mmol/L (98-107) L 10/19/25:
Carbon Dioxide 32 mmol/L (22-30) H 10/19/25 06:31
BUN 36 mg/dl (9-20) H 10/19/25 06:31
Creatinine 5.7 mg/dL (0.7-1.3) H* 10/19/25 06:
Calcium 8.3 mg/dl (8.4-10.2) L 10/19/25 06:31
Total Bilirubin 0.9 mg/dl (0.2-1.3) 10/18/25 15:29
AST 24 U/L (17-59) 10/18/25 15:29
ALT 18 U/L (0-50) 10/18/25 15:29
Alkaline Phosphatase 126 U/L (38-126) 10/18/25 15:29
Diagnostic Image Results:
09-30-25: CT AP: Limited evaluation of intestinal tract without oral contrast with some nondistended fluid-filled loops of small bowel and some liquid stool particularly in the right colon, intestinal tract nonobstructed. No free air. Findings
overall could represent ENTERITIS. Diverticulosis of the descending and sigmoid colon. Relative atrophic kidneys bilaterally non-excreting. Small right renal nonobstructing calculi versus atherosclerotic vascular calcification. Small simple right
renal cysts. Additional bilateral subcentimeter low-attenuation renal lesions too small to characterize.
Assessment / Plan
-
Israel Frost, 85-year-old with medical history significant for end-stage kidney disease on HD TTS, Afib on apixaban and recent admission to [facility] for enteritis about 2-3 weeks ago, was admitted to the hospital with weakness and frequent falls.
During his previous hospitalization, he was treated for enteritis for piperacillin-tazobactam which was transitioned to amoxicillin-clavulanate for a total of 7 days of antibiotics. At that admission, he complained of nausea, vomiting, abdominal
pain and diarrhea - all of which had improved by the time of discharge. He was sent home to complete 3 days of amox-clav. Independent of increased falling in the past week, he developed intermittent nausea around 10-12-25, which is 3 or so days
after he completed antibiotics. He was still moving his bowels daily and regularly. When he got admitted this time, on 10-18-25, he was nauseous intermittently but able to tolerate food and moving bowels. His nausea became acutely worse on 10-19-25
with abdominal pain and he could not tolerate oral intake. He also has not been able to have a bowel movement today. CR obstruction series showed nonspecific distention of small bowel. New leukocytosis with WBC 12.7 today (8.9 yesterday).
Impression:
* Acute abdominal pain with progressive nausea and vomiting
* Recent history of enteritis, treated for a total of 7 days with piperacillin-tazobactam then amoxicillin-clavulanate
* Ambulatory dysfunction with frequent falls
* End-stage kidney disease on TTS HD
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
* Chronically elevated troponin, type 2 demand ischemia in setting of ESKD
* Paroxysmal atrial fibrillation on apixaban 2.5 mg
* Type II diabetes mellitus
* Primary hypertension
* Benign prostatic hyperplasia
* History of ESBL Klebsiella, 2020
* History of CVA with left-sided hemiparesis
Recommendations
- Acute symptoms concerning for a SBO.
- Check urgent CT AP with IV and PO contrast; IV contrast only if he cannot tolerate PO.
- Analgesic and antiemetics as needed.
- Afebrile and hemodynamically stable; no present need for antibiotics.
-
-
Thank you for consultation and allowing me to participate in the patient's care. Please call the client relationship manager GI physician during the after hours with any questions or concerns.
[2025-10-19 22:03] LABS: Troponin I 0.584 ng/ml
[2025-10-19 22:18] LABS: Glucose - Point of Care 144 mg/dl (70-99)
[2025-10-19 22:18] LABS: Glucose - Point of Care 136 mg/dl (70-99)
[2025-10-20 02:14] LABS: Troponin I 0.601 ng/ml
[2025-10-20 03:36] VITALS: BP 143/59
[2025-10-20 06:00] VITALS: BMI 24.0
[2025-10-20] MEDS: COREG PO (07:35)
[2025-10-20] MEDS: COZAAR PO (07:35)
--- NOTE | 2025-10-20 07:35 | W.PN.HOSP.TC ---
Addendum entered and electronically signed by Bridgette Xiao MD 10/20/25 15:14:
I saw and evaluated the patient independently. I reviewed and discussed the resident�s note and agree with findings and plan as documented by Dr. Arce.
GENERAL: well developed, well nourished, male in no apparent distress
HEENT: NC/AT
HEART: irreg irreg, murmur
LUNGS : clear to auscultation bilaterally
ABDOM: soft, nontender, nondistended, + bowel sounds
EXT: no cyanosis, clubbing, or edema
NEUROLOGIC: flat affect--grossly intact--appears depressed
abdominal pain--CT again shows acute enteritis--suspect more bowel wall edema as pt cannot tolerate complete HD course--holding ABX--apprec GI, for MR enterography---stool studies pending---2 gm sodium diet
ESRD on hemodialysis/Hyperkalemia/Hyponatremia--Friday, , Friday schedule--apprec renal--cont meds as able--patient states that for the last 3 years he has been unable to complete a 4-hour dialysis treatment due to intolerance and
dizziness/weakness
Anemia of chronic kidney disease-- no signs of active bleeding
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
Essential hypertension--meds as able
Paroxysmal atrial fibrillation/Right bundle branch block--Continue Eliquis, Coreg
Chronic heart failure with mildly reduced EF 40% in 06/2025 with stage 2 diastolic dysfunction--volume controlled by HD
BPH--Continue tamsulosin
Hyperlipidemia--Continue atorvastatin
Depression/Anxiety/Insomnia--Continue Zoloft 50 mg twice daily, mirtazapine 7.5 mg nightly
CODE STATUS--DNR
DVT proph-- Eliquis
I believe the pt may be approaching hospice--will try to call his daughter after MR results back
Original Note:
Today's Communication/Plan
-
plan:
tigan reduce the dosage
lasix dosage currently on 80 mg once a day.
Hemodialysis today
Disposition status currently pending discussing with case management.
Assessment / Plan
Assessment / Plan
Weight 73.6 kg, temp 97.7, BP 143/59, RR 18, saturation O2 93. On room
Troponin: 0.170--0.584--0.601 high
Blood glucose 137, creatinine 4.2--5.7 high, bun 25--36, phosphorus 5.8, calcium 8.3 low
No MRSA, flu negative,
CT scan 10/19:
Findings suggesting enteritis/ileus, slightly progressed. No hannah obstruction.
#Ambulatory Dysfunction:
#Frequent Falls
- Patient describes lightheaded sensation - no dizziness/vertigo.
- Imaging studies done in the ED show no acute injury, fracture, etc.
- Diffuse DDD throughout the spine.
- No new focal neurologic deficits by exam.
- PT/OT evaluations - SNF was previously recommended but patient declined during last admission
- Orthostatic vital signs positive on 10/19. continue to follow orthostatic vital signs; agree to stop Tamsulosin, also holding Amlodipine. Will add compression stockings.
- follow BP; may need adjustments of BP meds
#Nausea/vomiting/Diarrhea:
- recent Enteritis 2 weeks ago; completed antibiotics with symptomatic improvement
- symptoms reoccurred Since
- will start with obstruction series/AXR
- may need repeat CT with IV contrast, and if feasible, oral contrast
- if diarrhea, will send stool studies
-EKG: QT 428, QTc 517 ms
- Prn Tigan IM; QTC 500 precludes other anti-emetics at present
-[facility] recommended if the patient cannot tolerate oral then they are planning to do with IV contrast only, if CT is negative eventually they are going to do endoscopy procedure. His last endoscopy 2016.
Dialysis tomorrow.
Likely will need GI evaluation, history of Schatzki's ring
# The patient has end-stage renal disease with recurrent enteritis CT scan findings with symptoms of lower abdominal pain probably secondary to bowel edema due to volume overload.
#Chronic SOB and chest pain with ambulation:
Chronically elevated troponin, type 2 demand ischemia in setting of ESRD
Hx of CAD s/p CABG
- trend trops to peak
- check Echo
- last noted ischemic eval [facility] 2023; patient vessels
# End-stage renal on partial hemodialysis:
- Stable. Has issues tolerating complete dialysis sessions due to abdominal pain / weakness.
- Nephrology evaluation for HD needs during acute stay.
- Continue usual meds/phosphate binders/etc.
#Hx of CVA with L hemiparesis:
- No new chest pain, focal neuro deficits, etc.
- Continue current CV med regimen.
#Chronic HFmrEF:
- Stable. Does not appear grossly volume overloaded.
- Continue furosemide for now - mostly due to fact that patient does not tolerate full/recommended HD sessions. Consider reducing from BID to daily dosing.
- Follow weights, I/Os, etc and adjust or eliminate diuretic regimen if needed.
Echo 10/19
1. Ejection fraction is 40% by visual assessment.
2. Compared to a prior transthoracic echocardiogram study from June 2024 no significant changes are seen.
3. Calcified trileaflet aortic valve with decreased leaflet excursion. Mild aortic stenosis with mean pressure gradient of 14 mmHg and estimated aortic valve area 1.68 cm2 using LVOT diameter of 2.1 cm. Trace aortic insufficiency.
4. Left ventricular wall motion is diffusely hypokinetic.
5. Mild to moderate mitral valve regurgitation.
#Paroxysmal Atrial Fibrillation:
- Stable. Continue carvedilol with holding parameters.
- Continue Eliquis for stroke risk reduction - may need to revisit risk:benefits if fall risk remains high.
# Insulin-required type 2 diabetes:
- Stable. Most recent A1C (summer) was < 6%. Repeat 5.5%
- Follow glucose and cover with SSI if necessary.
#Benign Hypertension
- Monitor BP including orthostatic signs.
- Adjust regimen as needed to avoid hypotension/lightheadedness.
# Benign prostatic hyperplasia
- Hold tamsulosin for now as noted above.
- Bladder scan protocol/follow for any evidence of urinary retention.
Disposition status pending : discuss [place] details with case management.
DVT Prophylaxis: SCDs
Code Status: DNR/DNI
Anticipated Discharge: 24 - 48 hours
Subjective/Interval History
-
Date of Service: October 20, 2025
Patient today morning had mild abdominal pain at the left lower abdomen, not associated with diarrhea, vomiting. Today he is going to receive dialysis.
Objective Data
-
Labs:
Laboratory Results
10/20/25
06:00
WBC Pending
Hgb Pending
Hct Pending
Plt Count Pending
Sodium Pending
Potassium Pending
Chloride Pending
Carbon Dioxide Pending
BUN Pending
Creatinine Pending
Glucose Pending
Calcium Pending
Vital Signs:
Vital Signs
Temp Pulse Resp BP Pulse Ox
97.7 F 87 18 143/59 96
10/20/25 03:36 10/20/25 03:36 10/20/25 03:36 10/20/25 03:36 10/20/25 03:36
I&O
10/19/25 10/20/25 10/21/25
06:59 06:59 06:59
Intake Total 770 / 770
Output Total 450 / 450
Balance 320 / 320
Review of Systems
-
History Source: Patient
All other systems: Reviewed and negative
Physical Exam
-
General: Well Developed, Well Nourished, Appears in Distress and Pain (4/)
Respiratory: Clear to Auscultation
Cardiac: Regular Rhythm and S1/S2
GI: Soft, Nontender, Nondistended, Normal Bowel Sounds and Tender (Left side lower quad tenderness present while on auscultation of the bowel.)
Genito-urinary: No Costovertebral Tender
Musculoskeletal: No Clubbing, No Cyanosis and No Edema
Neuro: AO x 3
Hematologic / Lymphatic: No Lymphadenopathy
Psych: Calm
[2025-10-20 07:40] VITALS: BP 123/65
[2025-10-20 08:02] LABS: Glucose - Point of Care 137 mg/dl (70-99)
[2025-10-20] MEDS: NOVOLOG FLEXPEN-LOW RESISTANCE SC ×3 (08:07→17:17)
[2025-10-20 08:32] LABS: Hematocrit 29.0 % (39.0-52.0); Hemoglobin 9.3 g/dL (13.0-18.0); Mean Corp Hgb Conc. 32.1 g/dL (33.0-37.0); Mean Corpuscular Volume 98.6 fL (80.0-94.0); Platelet Count 143 10^3/uL (130-400); Red Cell Dist. Width 18.9 % (11.5-14.5)
[2025-10-20 08:50] LABS: Troponin I 0.539 ng/ml
[2025-10-20] MEDS: RETACRIT 8000 UNITS IV (09:16)
[2025-10-20 09:25] LABS: Blood Urea Nitrogen 59 mg/dl (9-20); Calcium 7.9 mg/dl (8.4-10.2); Carbon Dioxide 27 mmol/L (22-30); Chloride 93 mmol/L (98-107); Estimated Creatinine Clearance 7 ml/min; Glucose 127 mg/dl (70-99); Potassium 5.1 mmol/L (3.5-5.1); Sodium 133 mmol/L (135-145); eGFR 6.14
[2025-10-20] MEDS: ELIQUIS PO (09:33)
[2025-10-20] MEDS: LASIX PO (09:33)
[2025-10-20] MEDS: PHOSLO PO ×3 (09:33→16:58)
[2025-10-20 11:25] VITALS: BP 128/49
--- NOTE | 2025-10-20 11:45 | W.PN.NEPH.HD ---
Assessment
-
Pt seen on HD. no new complaints. VSS, access ok
still NV
Progress Note - Hemodialysis
-
Date of Service: October 20, 2025
Duration: 30 minutes and 3 hours
Potassium Bath: 2
Calcium Bath: 2.5
Opti-Dialyzer: 160
Ultrafiltration: Other (0.5)
Blood Flow: 400
Dialysate Flow: 600
Heparin: 0
EPO: 8000
[2025-10-20] MEDS: LASIX 80 MG PO (12:29)
[2025-10-20] MEDS: PHOSLO 1334 MG PO (12:30)
[2025-10-20] MEDS: LIPITOR 80 MG PO (12:30)
[2025-10-20 13:24] LABS: Glucose - Point of Care 140 mg/dl (70-99)
--- NOTE | 2025-10-20 13:37 | W.PN.GI.CBS2 ---
Today's Communication / Plan
-
MRE
Assessment / Plan
-
This is an 85-year-old male past medical history of end-stage renal disease on dialysis, A-fib on Eliquis with recent hospitalization in September with abdominal pain, diarrhea, vomiting, leukocytosis found to have enteritis. He was discharged with
antibiotics and initially did well but 3 days after he finished antibiotics his nausea and vomiting persisted. He is having diffuse abdominal pain and he states now he is abdominal pain was ongoing since his last admission. Pain is diffuse and he
is tender on exam. He seems very uncomfortable when I went to examine him. He states he is constipated and did not have a bowel movement since yesterday. He has a leukocytosis to 12.7 which is up from 8.9 yesterday, troponin leak which has been
trending upwards up to 0.17. Hospitalist ordered an x-ray which showed nonspecific gaseous distention of several bowels a loop, paucity of gas within the colon, cannot rule out small bowel obstruction. CT again showed enteritis and possible ileus.
WBC up to 15.5. Discussed with hospitalist plan for MRE for further eval of small bowel (if cannot get done in timely manner can do CTE).
Subjective
Subjective
Date of Service: October 20, 2025
Patient states n/v has improved
Still with pain
Objective
Data Reviewed
Laboratory Data:
Laboratory Results
10/20/25 08:15
10/20/25 08:15
Laboratory Results
Phosphorus 5.8 mg/dl (2.5-4.5) H 10/19/25 06:31
Magnesium 2.0 mg/dl (1.6-2.3) 10/19/25 06:31
Total Bilirubin 0.9 mg/dl (0.2-1.3) 10/18/25 15:29
AST 24 U/L (17-59) 10/18/25 15:29
ALT 18 U/L (0-50) 10/18/25 15:29
Alkaline Phosphatase 126 U/L (38-126) 10/18/25 15:29
Vital Signs and I&O:
Vital Signs
Temp Pulse Resp BP Pulse Ox
98.3 F 76 18 143/74 98
10/20/25 11:25 10/20/25 11:25 10/20/25 11:25 10/20/25 12:29 10/20/25 11:25
I&O
10/19/25 10/20/25 10/21/25
06:59 06:59 06:59
Intake Total 770 / 770
Output Total 450 / 450
Balance 320 / 320
Physical Exam
Physical Exam
GI: Non Distended and Tender
--- NOTE | 2025-10-20 14:35 | CM ---
Addendum entered by KEVIN Ashton 10/20/25 16:08:
REference # for Auth with [facility] community: [id number]. clinical faxed today. for plan d/c 10/21/25.
Original Note:
Confirmed with Pre[facility] at [facility] she is offering SNF bed for patient. UPdated garland Dee that bed at [facility] is available at discharge but auth will be required from insurer.
[2025-10-20 15:35] VITALS: BP 124/54
[2025-10-20] MEDS: MORPHINE SULFATE 1 MG IV ×2 (16:56→20:57)
--- NOTE | 2025-10-20 17:05 | PTCARENOTE ---
pt with severe abd pain requesting pain meds. See MAR. pt with minimal oral intake this afternoon and not planning on eating dinner. see worklist for proper charting. pt oob with x1 assist and after educating willing to work with walker. stool
specimen sent this afternoon.
[2025-10-20 17:10] LABS: Glucose - Point of Care 149 mg/dl (70-99)
[2025-10-20 19:19] VITALS: BP 134/54
[2025-10-20] MEDS: COREG 6.25 MG PO (20:26)
[2025-10-20] MEDS: ELIQUIS 2.5 MG PO (20:26)
[2025-10-20 22:03] LABS: Glucose - Point of Care 114 mg/dl (70-99)
[2025-10-20] MEDS: DILAUDID 0.25 MG IV (22:57)
[2025-10-20 23:00] VITALS: BP 130/58
[2025-10-21] MEDS: BENTYL 20 MG PO (00:46)
[2025-10-21 03:13] VITALS: BP 127/52
[2025-10-21] MEDS: TYLENOL 650 MG PO ×2 (03:34→11:33)
[2025-10-21] MEDS: TIGAN 100 MG IM (03:41)
[2025-10-21] MEDS: COMPAZINE 10 MG IV (05:16)
[2025-10-21 06:00] VITALS: BMI 23.5
[2025-10-21 06:43] LABS: Hematocrit 29.9 % (39.0-52.0); Hemoglobin 9.5 g/dL (13.0-18.0); Mean Corp Hgb Conc. 31.8 g/dL (33.0-37.0); Mean Corpuscular Volume 97.1 fL (80.0-94.0); Platelet Count 157 10^3/uL (130-400); Red Cell Dist. Width 19.0 % (11.5-14.5)
[2025-10-21 07:00] VITALS: BP 137/54
--- NOTE | 2025-10-21 07:01 | W.PN.HOSP.TC ---
Addendum entered and electronically signed by Bridgette Xiao MD 10/21/25 18:57:
I saw and evaluated the patient independently. I reviewed and discussed the resident�s note and agree with findings and plan as documented by Dr. Arce.
GENERAL: well developed, well nourished, male in no apparent distress
HEENT: NC/AT
HEART: irreg irreg, murmur
LUNGS : clear to auscultation bilaterally
ABDOM: soft, nontender, nondistended, + bowel sounds
EXT: no cyanosis, clubbing, or edema
NEUROLOGIC: flat affect--grossly intact--appears depressed
abdominal pain--CT again shows acute enteritis--suspect more bowel wall edema as pt cannot tolerate complete HD course--holding ABX--apprec GI, MR enterography still reading as enteritis---stool studies with C. diff antigen positive toxin negative,
norovirus neg---2 gm sodium diet
ESRD on hemodialysis/Hyperkalemia/Hyponatremia--Friday, , Friday schedule--apprec renal--cont meds as able--patient states that for the last 3 years he has been unable to complete a 4-hour dialysis treatment due to intolerance and
dizziness/weakness--now developing total body itching--trying atarax
Anemia of chronic kidney disease-- no signs of active bleeding
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
Essential hypertension--meds as able
Paroxysmal atrial fibrillation/Right bundle branch block--Continue Eliquis, Coreg
Chronic heart failure with mildly reduced EF 40% in 06/2025 with stage 2 diastolic dysfunction--volume controlled by HD
BPH--Continue tamsulosin
Hyperlipidemia--Continue atorvastatin
Depression/Anxiety/Insomnia--Continue Zoloft 50 mg twice daily, mirtazapine 7.5 mg nightly
CODE STATUS--DNR
DVT proph-- Eliquis
I believe the pt may be approaching hospice--will try to call his daughter after MR results back
He does have plans to go to SNF at [facility] when medically stable (have HD there)
Original Note:
Today's Communication/Plan
-
follow up with MR enterography
cmp, cbc
Assessment / Plan
Assessment / Plan
85-year-old with medical history significant for end-stage kidney disease on HD TTS, Afib on apixaban and recent admission to [facility] for enteritis about 2-3 weeks ago, readmitted to the hospital with weakness and frequent falls
Weight 73.6 kg, temp 97.7, BP 143/59, RR 18, saturation O2 93. On room
Troponin: 0.170--0.584--0.601 high
Blood glucose 137, creatinine 4.2--5.7 high, bun 25--36, phosphorus 5.8, calcium 8.3 low
No MRSA, flu negative,
CT scan 10/19:
Findings suggesting enteritis/ileus, slightly progressed. No hannah obstruction.
C.Diff toxin negative
#Ambulatory Dysfunction:
#Frequent Falls
- Patient describes lightheaded sensation - no dizziness/vertigo.
- Imaging studies done in the ED show no acute injury, fracture, etc.
- Diffuse DDD throughout the spine.
- No new focal neurologic deficits by exam.
- PT/OT evaluations - SNF was previously recommended but patient declined during last admission
- Orthostatic vital signs positive on 10/19. continue to follow orthostatic vital signs; agree to stop Tamsulosin, also holding Amlodipine. Will add compression stockings.
- follow BP; may need adjustments of BP meds
#Nausea/vomiting/Diarrhea:
- recent Enteritis 2 weeks ago; completed antibiotics with symptomatic improvement
- symptoms reoccurred Since
- will start with obstruction series/AXR
- may need repeat CT with IV contrast, and if feasible, oral contrast
- if diarrhea, will send stool studies
-EKG: QT 428, QTc 517 ms
- Prn Tigan IM; QTC 500 precludes other anti-emetics at present
-Meeting Facilitator recommended if the patient cannot tolerate oral then they are planning to do with IV contrast only, if CT is negative eventually they are going to do endoscopy procedure. His last endoscopy 2016.
Dialysis tomorrow.
Likely will need GI evaluation, history of Schatzki's ring
# The patient has end-stage renal disease with recurrent enteritis CT scan findings with symptoms of lower abdominal pain probably secondary to bowel edema due to volume overload.
#Chronic SOB and chest pain with ambulation:
Chronically elevated troponin, type 2 demand ischemia in setting of ESRD
Hx of CAD s/p CABG
- trend trops to peak
- check Echo
- last noted ischemic eval [facility] 2023; patient vessels
# End-stage renal on partial hemodialysis:
- Stable. Has issues tolerating complete dialysis sessions due to abdominal pain / weakness.
- Nephrology evaluation for HD needs during acute stay.
- Continue usual meds/phosphate binders/etc.
#Hx of CVA with L hemiparesis:
- No new chest pain, focal neuro deficits, etc.
- Continue current CV med regimen.
#Chronic HFmrEF:
- Stable. Does not appear grossly volume overloaded.
- Continue furosemide for now - mostly due to fact that patient does not tolerate full/recommended HD sessions. Consider reducing from BID to daily dosing.
- Follow weights, I/Os, etc and adjust or eliminate diuretic regimen if needed.
Echo 10/19
1. Ejection fraction is 40% by visual assessment.
2. Compared to a prior transthoracic echocardiogram study from June 2024 no significant changes are seen.
3. Calcified trileaflet aortic valve with decreased leaflet excursion. Mild aortic stenosis with mean pressure gradient of 14 mmHg and estimated aortic valve area 1.68 cm2 using LVOT diameter of 2.1 cm. Trace aortic insufficiency.
4. Left ventricular wall motion is diffusely hypokinetic.
5. Mild to moderate mitral valve regurgitation.
#Paroxysmal Atrial Fibrillation:
- Stable. Continue carvedilol with holding parameters.
- Continue Eliquis for stroke risk reduction - may need to revisit risk:benefits if fall risk remains high.
# Insulin-required type 2 diabetes:
- Stable. Most recent A1C (summer) was < 6%. Repeat 5.5%
- Follow glucose and cover with SSI if necessary.
#Benign Hypertension
- Monitor BP including orthostatic signs.
- Adjust regimen as needed to avoid hypotension/lightheadedness.
# Benign prostatic hyperplasia
- Hold tamsulosin for now as noted above.
- Bladder scan protocol/follow for any evidence of urinary retention.
Disposition status pending : discuss [facility] details with case management.
DVT Prophylaxis: SCDs
Code Status: DNR/DNI
Anticipated Discharge: 24 - 48 hours
Subjective/Interval History
-
Date of Service: October 21, 2025
Overnight the pt felt nauseous, vomiting and currently on tigan due to QT prolongation, he feels sick, uncomfortable due to left side abdomen pain.
However pt has no fever, chills, chest pain, dizziness, palpitation after receiving yesterday dialysis.
Objective Data
-
Labs:
Laboratory Results
10/21/25
05:42
WBC 14.0 H
Hgb 9.5 L
Hct 29.9 L
Plt Count 157
Sodium Pending
Potassium Pending
Chloride Pending
Carbon Dioxide Pending
BUN Pending
Creatinine Pending
Glucose Pending
Calcium Pending
Vital Signs:
Vital Signs
Temp Pulse Resp BP Pulse Ox
97.7 F 78 18 127/52 93
10/21/25 03:13 10/21/25 03:13 10/21/25 03:13 10/21/25 03:13 10/21/25 03:13
I&O
10/20/25 10/21/25 10/22/25
06:59 06:59 06:59
Intake Total 770 / 770 600 / 600
Output Total 450 / 450
Balance 320 / 320 600 / 600
Review of Systems
-
History Source: Patient
All other systems: Reviewed and negative
Physical Exam
-
General: Appears in Distress, Pain and Other
Respiratory: Clear to Auscultation
Cardiac: Regular Rhythm and S1/S2
GI: Normal Bowel Sounds, Tender and Other
Genito-urinary: No Costovertebral Tender
Skin: IV Access / Catheter Site (left side arm dialysis fistula present)
Neuro: AO x 3 and Central Nerve's Intact
Hematologic / Lymphatic: No Lymphadenopathy
[2025-10-21 07:09] LABS: Blood Urea Nitrogen 39 mg/dl (9-20); Calcium 8.7 mg/dl (8.4-10.2); Carbon Dioxide 29 mmol/L (22-30); Chloride 92 mmol/L (98-107); Estimated Creatinine Clearance 10 ml/min; Glucose 114 mg/dl (70-99); Potassium 4.3 mmol/L (3.5-5.1); Sodium 133 mmol/L (135-145); eGFR 9.48
[2025-10-21] MEDS: LASIX 80 MG PO (08:10)
[2025-10-21] MEDS: COREG 6.25 MG PO ×2 (08:11→19:57)
[2025-10-21] MEDS: LIPITOR 80 MG PO (08:11)
[2025-10-21] MEDS: COZAAR 25 MG PO (08:11)
[2025-10-21] MEDS: ELIQUIS 2.5 MG PO (08:11)
[2025-10-21] MEDS: PHOSLO PO ×3 (08:12→16:59)
[2025-10-21 08:55] LABS: Glucose - Point of Care 138 mg/dl (70-99)
[2025-10-21] MEDS: NOVOLOG FLEXPEN-LOW RESISTANCE SC ×3 (09:11→17:21)
[2025-10-21 11:00] VITALS: BP 114/47
[2025-10-21] MEDS: MORPHINE SULFATE 1 MG IV ×2 (13:17→19:56)
[2025-10-21 13:22] LABS: Glucose - Point of Care 126 mg/dl (70-99)
--- NOTE | 2025-10-21 13:34 | W.PN.NEPH.PH ---
Today's Communication / Plan
-
HD tomorrow
Assessment/Plan
-
Impression:
ESRD TTS [facility] in [place]
HTN
AV fistula last fistulogram 02/2025
BPH
Anemia of chronic disease/ESRD
CAD/IN/CABG s/p stent 11/2023
RBBB
Paroxysmal A-fib
Chronic diastolic CHF
dizziness
Poor sleep
Vomiting
history of Schatzki's ring
Plan:
Next dialysis tomorrow
s/p MRE today, await report-GI follows
vol status stable, cont lasix-dose reduced this admit
FR 40 ounces/day
bp stable on coreg
-
-
Date of Service: October 21, 2025
CC / HPI / ROS
-
Chief Complaint:
abd pain
History of Present Illness:
ESRD Friday
Hemodynamically stable
no fever but increasing WBC 14
Review of Systems:
offers no cp ro sob at rest
no change in abd pain
on RA
no diarrhea
Labs
-
Labs:
WBC 14.0 10^3/uL (4.8-10.8) H 10/21/25 05:42
RBC 3.08 10^6/uL (4.70-6.10) L 10/21/25 05:42
Hgb 9.5 g/dL (13.0-18.0) L 10/21/25 05:42
Hct 29.9 % (39.0-52.0) L 10/21/25 05:42
Plt Count 157 10^3/uL (130-400) 10/21/25 05:42
Sodium 133 mmol/L (135-145) L 10/21/25 05:42
Potassium 4.3 mmol/L (3.5-5.1) 10/21/25 05:42
Chloride 92 mmol/L (98-107) L 10/21/25 05:42
Carbon Dioxide 29 mmol/L (22-30) 10/21/25 05:42
BUN 39 mg/dl (9-20) H 10/21/25 05:42
Creatinine 5.5 mg/dL (0.7-1.3) H* 10/21/25 05:42
eGFR 9.48 10/21/25 05:42
Glucose 114 mg/dl (70-99) H 10/21/25 05:42
Calcium 8.7 mg/dl (8.4-10.2) 10/21/25 05:42
Phosphorus 5.8 mg/dl (2.5-4.5) H 10/19/25 06:31
Albumin 4.7 g/dl (3.5-5.0) 10/18/25 15:29
Physical Exam
-
Vital Signs:
Vital Signs
Temp Pulse Resp BP Pulse Ox
97.5 F 74 16 114/47 97
10/21/25 11:00 10/21/25 11:00 10/21/25 11:00 10/21/25 11:00 10/21/25 11:00
Cardiovascular:: Regular rate and rhythm
Respiratory:: Bilateral: CTA
Lung Excursion:: Normal
Abdomen:: Soft and Tender (left side tender)
Bowel Sounds:: Normal
Extremity Edema:: None: Bilateral:
Escobar Catheter: No
--- NOTE | 2025-10-21 15:18 | W.PN.GI.CBS2 ---
Addendum entered and electronically signed by Alma Ortega Do, MD 10/21/25 17:27:
I saw and evaluated the patient. I reviewed the resident�s note and agree with findings and plan as documented in the resident�s note.
Israel continues to report abd pain but tolerating diet. He had MRE today with consistent SB thickening. Vital stable exam diffuse TTP without guarding or rebound. Labs reviewed elevated WBC.
Recommendations
- AXR in AM to follow contrast
- Await rest of stool studies
- Check fecal calprotectin
- Hold eliquis tomorrow if does not improve consider push enteroscopy Friday
Will follow with you
Original Note:
Today's Communication / Plan
-
* X-ray abdomen in AM.
* Hold AC for potential enteroscopy on Friday.
Assessment / Plan
-
Israel Frost, 85-year-old with medical history significant for end-stage kidney disease on HD TTS, Afib on apixaban and recent admission to [facility] for enteritis about 2-3 weeks ago, was admitted to the hospital with weakness and frequent falls.
During his previous hospitalization, he was treated for enteritis for piperacillin-tazobactam which was transitioned to amoxicillin-clavulanate for a total of 7 days of antibiotics. At that admission, he complained of nausea, vomiting, abdominal
pain and diarrhea - all of which had improved by the time of discharge. He was sent home to complete 3 days of amox-clav. Independent of increased falling in the past week, he developed intermittent nausea around 10-12-25, which is 3 or so days
after he completed antibiotics. He was still moving his bowels daily and regularly. When he got admitted this time, on 10-18-25, he was nauseous intermittently but able to tolerate food and moving bowels. His nausea became acutely worse on 10-19-25
with abdominal pain and he could not tolerate oral intake. CR obstruction series showed nonspecific distention of small bowel. New leukocytosis. CT AP on 10-19-25 with findings suggesting enteritis/ileus, slightly progressed without hannah
obstruction. MRE on 10-21-25 with findings suggestive of enteritis with an associated ileus..
Impression:
* Acute abdominal pain with progressive nausea and vomiting
* Recent history of enteritis, treated for a total of 7 days with piperacillin-tazobactam then amoxicillin-clavulanate
* Ambulatory dysfunction with frequent falls
* End-stage kidney disease on TTS HD
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
* Chronically elevated troponin, type 2 demand ischemia in setting of ESKD
* Paroxysmal atrial fibrillation on apixaban 2.5 mg
* Type II diabetes mellitus
* Primary hypertension
* Benign prostatic hyperplasia
* History of ESBL Klebsiella, 2020
* History of CVA with left-sided hemiparesis
Recommendations
- MRE suggestive of enteritis with an associated ileus.
- Differential includes but is not limited to persistent enteritis, bowel wall edema (from chronic incomplete HD) or primary inflammatory process.
- X-ray abdomen in AM to track contrast given today for further evaluation of the ileus.
- Hold anticoagulation for a potential enteroscopy on Friday.
- Analgesic and antiemetics as needed.
- Afebrile and hemodynamically stable; no present need for antibiotics.
Subjective
Subjective
Date of Service: October 21, 2025
Pain has not improved. Still nauseous and vomiting. No appetite.
Objective
Data Reviewed
Laboratory Data:
Laboratory Results
10/21/25 05:42
10/21/25 05:42
Laboratory Results
Phosphorus 5.8 mg/dl (2.5-4.5) H 10/19/25 06:31
Magnesium 2.0 mg/dl (1.6-2.3) 10/19/25 06:31
Total Bilirubin 0.9 mg/dl (0.2-1.3) 10/18/25 15:29
AST 24 U/L (17-59) 10/18/25 15:29
ALT 18 U/L (0-50) 10/18/25 15:29
Alkaline Phosphatase 126 U/L (38-126) 10/18/25 15:29
Vital Signs and I&O:
Vital Signs
Temp Pulse Resp BP Pulse Ox
97.5 F 74 16 114/47 97
10/21/25 11:00 10/21/25 11:00 10/21/25 11:00 10/21/25 11:00 10/21/25 11:00
I&O
10/20/25 10/21/25 10/22/25
06:59 06:59 06:59
Intake Total 770 / 770 600 / 600
Output Total 450 / 450
Balance 320 / 320 600 / 600
Physical Exam
Physical Exam
GI: Non Distended, Tender and Normal Bowel Sounds
[2025-10-21 15:56] VITALS: BP 140/47
--- NOTE | 2025-10-21 17:46 | CM ---
Patient complaining of pain and not eating per physician. Patient planning for SNF placement when medically appropriate. CM will continue to follow for discharge planning needs.
Plan; SNF: pending auth and medical treatment plan
[2025-10-21 17:57] LABS: Glucose - Point of Care 122 mg/dl (70-99)
[2025-10-21 19:21] VITALS: BP 142/55
[2025-10-21] MEDS: ATARAX 12.5 MG PO (19:56)
[2025-10-21 22:22] LABS: Glucose - Point of Care 140 mg/dl (70-99)
[2025-10-21 23:29] VITALS: BP 139/56
[2025-10-22] VITALS (7 sets, daily range): BP systolic 117–154; BP diastolic 43–61; BMI 23.7
[2025-10-22] MEDS: ATARAX 10 MG PO (00:14)
[2025-10-22] MEDS: LOTRISONE CREAM 1 APPLIC TOPICAL ×3 (02:04→19:37)
[2025-10-22] MEDS: BENADRYL 25 MG PO (02:06)
[2025-10-22] MEDS: MORPHINE SULFATE 1 MG IV ×3 (03:50→19:35)
[2025-10-22] MEDS: TIGAN 100 MG IM (03:50)
[2025-10-22] MEDS: TYLENOL 650 MG PO ×2 (06:35→12:12)
[2025-10-22 07:15] LABS: Glucose - Point of Care 160 mg/dl (70-99)
[2025-10-22 07:44] LABS: Urine Character Slightly Cloudy (Clear)
[2025-10-22 08:11] LABS: Urine Red Blood Cell 50-60 /HPF (0-2); Urine White Cell 26-30 /HPF (0-5)
[2025-10-22 08:16] LABS: Hematocrit 28.1 % (39.0-52.0); Hemoglobin 9.1 g/dL (13.0-18.0); Mean Corp Hgb Conc. 32.4 g/dL (33.0-37.0); Mean Corpuscular Volume 96.6 fL (80.0-94.0); Platelet Count 166 10^3/uL (130-400); Red Cell Dist. Width 18.2 % (11.5-14.5)
[2025-10-22 08:50] LABS: ALT (SGPT) 17 U/L (0-50); AST (SGOT) 28 U/L (17-59); Albumin 3.5 g/dl (3.5-5.0); Alkaline Phosphatase 109 U/L (38-126); Blood Urea Nitrogen 56 mg/dl (9-20); Calcium 8.0 mg/dl (8.4-10.2); Carbon Dioxide 28 mmol/L (22-30); Chloride 90 mmol/L (98-107); Estimated Creatinine Clearance 7 ml/min; Glucose 135 mg/dl (70-99); Potassium 4.1 mmol/L (3.5-5.1); Sodium 130 mmol/L (135-145); Total Protein 5.8 g/dl (6.3-8.2); eGFR 6.75
[2025-10-22] MEDS: LASIX 80 MG PO (09:59)
[2025-10-22] MEDS: COREG 6.25 MG PO ×2 (09:59→19:29)
[2025-10-22] MEDS: COZAAR 25 MG PO (09:59)
[2025-10-22] MEDS: FLUSH (NSS) 2 FLUSH IV (10:03)
[2025-10-22] MEDS: PHOSLO PO ×3 (10:04→17:55)
[2025-10-22] MEDS: LIPITOR 80 MG PO (10:06)
[2025-10-22] MEDS: NOVOLOG FLEXPEN-LOW RESISTANCE SC ×2 (10:06→17:42)
[2025-10-22] MEDS: ATARAX 12.5 MG PO (12:15)
[2025-10-22 12:28] LABS: Glucose - Point of Care 196 mg/dl (70-99)
--- NOTE | 2025-10-22 13:17 | W.PN.GI.CBS2 ---
Today's Communication / Plan
-
AXR today with contrast completely passed
Given lack of improvement clinically recommend enteroscopy Friday
Await HD Friday to see if that may improve gut wall edema
Will follow with you
Assessment / Plan
-
Israel Frost, 85-year-old with medical history significant for end-stage kidney disease on HD TTS, Afib on apixaban and recent admission to [facility] for enteritis about 2-3 weeks ago, was admitted to the hospital with weakness and frequent falls.
During his previous hospitalization, he was treated for enteritis for piperacillin-tazobactam which was transitioned to amoxicillin-clavulanate for a total of 7 days of antibiotics. At that admission, he complained of nausea, vomiting, abdominal
pain and diarrhea - all of which had improved by the time of discharge. He was sent home to complete 3 days of amox-clav. Independent of increased falling in the past week, he developed intermittent nausea around 10-12-25, which is 3 or so days
after he completed antibiotics. He was still moving his bowels daily and regularly. When he got admitted this time, on 10-18-25, he was nauseous intermittently but able to tolerate food and moving bowels. His nausea became acutely worse on 10-19-25
with abdominal pain and he could not tolerate oral intake. CR obstruction series showed nonspecific distention of small bowel. New leukocytosis. CT AP on 10-19-25 with findings suggesting enteritis/ileus, slightly progressed without hannah
obstruction. MRE on 10-21-25 with findings suggestive of enteritis with an associated ileus..
Impression:
* Acute abdominal pain with progressive nausea and vomiting
* Recent history of enteritis, treated for a total of 7 days with piperacillin-tazobactam then amoxicillin-clavulanate
* Ambulatory dysfunction with frequent falls
* End-stage kidney disease on TTS HD
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
* Chronically elevated troponin, type 2 demand ischemia in setting of ESKD
* Paroxysmal atrial fibrillation on apixaban 2.5 mg
* Type II diabetes mellitus
* Primary hypertension
* Benign prostatic hyperplasia
* History of ESBL Klebsiella, 2020
* History of CVA with left-sided hemiparesis
Recommendations
- Clinically pain and appetite not improving. Would see if improves post HD if gut wall edema may be contributor
- Continue to hold AC
- Plan for enteroscopy Friday
- Stool studies thus far negative, few items still pending
- X-ray abdomen today with contrast completely passed and no bowel obstruction
Subjective
Subjective
Date of Service: October 22, 2025
Still with poor appetite and abdominal discomfort. With 2 loose BM yesterday
Objective
Data Reviewed
Laboratory Data:
Laboratory Results
10/22/25 07:57
10/22/25 07:57
Laboratory Results
Phosphorus 5.8 mg/dl (2.5-4.5) H 10/19/25 06:31
Magnesium 2.0 mg/dl (1.6-2.3) 10/19/25 06:31
Total Bilirubin 0.6 mg/dl (0.2-1.3) 10/22/25 07:57
AST 28 U/L (17-59) 10/22/25 07:57
ALT 17 U/L (0-50) 10/22/25 07:57
Alkaline Phosphatase 109 U/L (38-126) 10/22/25 07:57
Vital Signs and I&O:
Vital Signs
Temp Pulse Resp BP Pulse Ox
97.7 F 75 16 134/50 93
10/22/25 11:54 10/22/25 11:54 10/22/25 11:54 10/22/25 11:54 10/22/25 11:54
I&O
10/21/25 10/22/25 10/23/25
06:59 06:59 06:59
Intake Total 600 / 600 500 / 500
Output Total 0 / 0
Balance 600 / 600 500 / 500
Physical Exam
Physical Exam
GEN: No acute distress, conversant, pleasant
HEENT: anicteric, extraocular movements intact, dry MM
GI: soft, non-distended, lower quadrants tender to palpation, normal active bowel sounds, no hepatosplenomegaly
EXT: warm, well perfused, trace edema bilaterally
NEURO: AAOx3, non-focal
--- NOTE | 2025-10-22 13:46 | W.PN.HOSP.TC ---
Addendum entered and electronically signed by Bridgette Xiao MD 10/22/25 19:51:
I saw and evaluated the patient independently. I reviewed and discussed the resident�s note and agree with findings and plan as documented by Dr. Arce.
GENERAL: well developed, well nourished, male in no apparent distress
HEENT: NC/AT
HEART: irreg irreg, murmur
LUNGS : clear to auscultation bilaterally
ABDOM: soft, nontender, nondistended, + bowel sounds
EXT: no cyanosis, clubbing, or edema
NEUROLOGIC: flat affect--grossly intact--appears depressed and as if he has given up
abdominal pain--CT again shows acute enteritis--suspect more bowel wall edema as pt cannot tolerate complete HD course--holding ABX--apprec GI, MR enterography still reading as enteritis---stool studies with C. diff antigen positive toxin negative,
norovirus neg---2 gm sodium diet
ESRD on hemodialysis/Hyperkalemia/Hyponatremia--Friday, , Friday schedule--apprec renal--cont meds as able--patient states that for the last 3 years he has been unable to complete a 4-hour dialysis treatment due to intolerance and
dizziness/weakness--now developing total body itching--trying atarax
Anemia of chronic kidney disease-- no signs of active bleeding
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
Essential hypertension--meds as able
Paroxysmal atrial fibrillation/Right bundle branch block--Continue Eliquis, Coreg
Chronic heart failure with mildly reduced EF 40% in 06/2025 with stage 2 diastolic dysfunction--volume controlled by HD
BPH--Continue tamsulosin
Hyperlipidemia--Continue atorvastatin
Depression/Anxiety/Insomnia--Continue Zoloft 50 mg twice daily, mirtazapine 7.5 mg nightly
CODE STATUS--DNR
DVT proph-- Eliquis
I believe the pt may be approaching hospice--called his daughter Susan to discuss--did not have a chance to speak with him, will try tomorrow
He does have plans to go to SNF at [facility] when medically stable (have HD there)
Original Note:
Today's Communication/Plan
-
Patient overall seems to have more depressed mood compared to prior discharge
Discussions had with daughter Elle regarding patient's prognosis; goals of care to be further discussed which will guide further clinical decision making.
Eliquis on hold for possible push enteroscopy on Friday
Assessment / Plan
Assessment / Plan
85-year-old with medical history significant for end-stage kidney disease on HD TTS, Afib on apixaban and recent admission to [facility] for enteritis about 2-3 weeks ago, readmitted to the hospital with weakness and frequent falls
Weight 73.6 kg, temp 97.7, BP 143/59, RR 18, saturation O2 93. On room
Troponin: 0.170--0.584--0.601 high
Blood glucose 137, creatinine 4.2--5.7 high, bun 25--36, phosphorus 5.8, calcium 8.3 low
No MRSA, flu negative
CT scan 10/19:
Findings suggesting enteritis/ileus, slightly progressed. No hannah obstruction.
C.Diff toxin negative
#Ambulatory Dysfunction:
#Frequent Falls
- Patient describes lightheaded sensation - no dizziness/vertigo.
- Imaging studies done in the ED show no acute injury, fracture, etc.
- Diffuse DDD throughout the spine.
- No new focal neurologic deficits by exam.
- PT/OT evaluations - SNF was previously recommended but patient declined during last admission
- Orthostatic vital signs positive on 10/19. continue to follow orthostatic vital signs; stop Tamsulosin, also holding Amlodipine. Will add compression stockings.
- follow BP; may need adjustments of BP meds
#Nausea/vomiting/Diarrhea:
- recent Enteritis 2 weeks ago; completed antibiotics with symptomatic improvement
- symptoms reoccurred Since
- will start with obstruction series/AXR
- may need repeat CT with IV contrast, and if feasible, oral contrast
- if diarrhea, will send stool studies
-EKG: QT 428, QTc 517 ms
- Prn Tigan IM; QTC 500 precludes other anti-emetics at present
- [employer] recommended if the patient cannot tolerate oral then they are planning to do with IV contrast only, if CT is negative eventually they are going to do endoscopy procedure. His last endoscopy 2016.
Dialysis tomorrow.
- Seen by GI:
- Cdiff antigen +, toxin negative
- stool studies negative, no WBCs
- fecal calprotectin pending
- MRE showing mildly dilated loops of small bowel with areas of enhancement and mild wall thickening suggestive of enteritis with associated ileus, follow-up of abdomen x-ray demonstrating complete passage of contrast
- Eliquis on hold for possible push enteroscopy Friday, presuming this aligns with patient's GOC
# The patient has end-stage renal disease with recurrent enteritis CT scan findings with symptoms of lower abdominal pain probably secondary to bowel edema due to volume overload.
#Chronic SOB and chest pain with ambulation:
Chronically elevated troponin, type 2 demand ischemia in setting of ESRD
Hx of CAD s/p CABG
- trend trops to peak
- Repeat echo 10/19/2025 showing no other significant changes from prior
- last noted ischemic eval [facility] 2023; patient vessels
# End-stage renal on partial hemodialysis:
#Uremic Pruritus
- Stable. Has issues tolerating complete dialysis sessions due to abdominal pain / weakness.
- Nephrology evaluation for HD needs during acute stay.
- Continue usual meds/phosphate binders/etc.
- c/w hydroxyzine
#Hx of CVA with L hemiparesis:
- No new chest pain, focal neuro deficits, etc.
- Continue current CV med regimen.
#Chronic HFmrEF:
- Stable. Does not appear grossly volume overloaded.
- Continue furosemide for now - mostly due to fact that patient does not tolerate full/recommended HD sessions. Consider reducing from BID to daily dosing.
- Follow weights, I/Os, etc and adjust or eliminate diuretic regimen if needed.
Echo 10/19
1. Ejection fraction is 40% by visual assessment.
2. Compared to a prior transthoracic echocardiogram study from June 2024 no significant changes are seen.
3. Calcified trileaflet aortic valve with decreased leaflet excursion. Mild aortic stenosis with mean pressure gradient of 14 mmHg and estimated aortic valve area 1.68 cm2 using LVOT diameter of 2.1 cm. Trace aortic insufficiency.
4. Left ventricular wall motion is diffusely hypokinetic.
5. Mild to moderate mitral valve regurgitation.
#Paroxysmal Atrial Fibrillation:
- Stable. Continue carvedilol with holding parameters.
- Continue Eliquis for stroke risk reduction - may need to revisit risk:benefits if fall risk remains high.
# Insulin-required type 2 diabetes:
- Stable. Most recent A1C (summer) was < 6%. Repeat 5.5%
- Follow glucose and cover with SSI if necessary.
#Benign Hypertension
- Monitor BP including orthostatic signs.
- Adjust regimen as needed to avoid hypotension/lightheadedness.
# Benign prostatic hyperplasia
- Hold tamsulosin for now as noted above.
- Bladder scan protocol/follow for any evidence of urinary retention.
Disposition status pending : discuss [place] details with case management.
DVT Prophylaxis: SCDs
Code Status: DNR/DNI
Anticipated Discharge: > 48 hours
Subjective/Interval History
-
Date of Service: October 22, 2025
No acute overnight events. Patient still complaining of abdominal pain, diffuse itching. Patient has no acute mood complaints, however he remains flat of affect.
Objective Data
-
Labs:
Laboratory Results
10/22/25
07:57
WBC 13.0 H
Hgb 9.1 L
Hct 28.1 L
Plt Count 166
Sodium 130 L
Potassium 4.1
Chloride 90 L
Carbon Dioxide 28
BUN 56 H
Creatinine 7.3 H*
Glucose 135 H
Calcium 8.0 L
Total Bilirubin 0.6
AST 28
ALT 17
Alkaline Phosphatase 109
Vital Signs:
Vital Signs
Temp Pulse Resp BP Pulse Ox
97.7 F 75 16 134/50 93
10/22/25 11:54 10/22/25 11:54 10/22/25 11:54 10/22/25 11:54 10/22/25 11:54
I&O
10/21/25 10/22/25 10/23/25
06:59 06:59 06:59
Intake Total 600 / 600 500 / 500
Output Total 0 / 0
Balance 600 / 600 500 / 500
Review of Systems
-
History Source: Patient
All other systems: Reviewed and negative
Constitutional: Reports Fatigue
EENT: Reports No Symptoms Reported
Respiratory: Reports No Symptoms
Cardiac: Reports No Symptoms
Abdomen/GI: Reports Abdominal Pain; Denies Nausea, Vomiting or Diarrhea
Genitourinary: Reports No Symptoms
Musculoskeletal: Reports No Symptoms
Skin: Reports Itching; Denies Rash or Sores
Neuro: Reports No Symptoms
Physical Exam
-
General: No Apparent Distress and Appears Chronically Ill
HEENT: Normocephalic, Atraumatic, Moist Mucous Membranes, Bow Conjunctivae, No Ptosis, PERRLA, Nose Appears Normal and Ears Appear Normal
Respiratory: Clear to Auscultation and Non Labored Respirations; Negative Wheezes, Rales or Rhonchi
Cardiac: Regular Rhythm and S1/S2; Negative Murmur
GI: Soft, Nondistended, Normal Bowel Sounds and Tender
Rectal: Deferred by Provider
Genito-urinary: Deferred by me
Musculoskeletal: No Clubbing, No Cyanosis and No Edema
Skin: Warm, Dry and IV Access / Catheter Site
Neuro: AO x 3
Psych: Depressed and Other (Patient has flat affect, gives one-word answers, appears despondent.)
[2025-10-22] MEDS: FLEXBUMIN 25% FOR HEMODIALYSIS 12.5 GRAMS IV (13:55)
[2025-10-22] MEDS: NOVOLOG FLEXPEN-LOW RESISTANCE 1 UNITS SC (14:02)
--- NOTE | 2025-10-22 14:02 | CM ---
Varghese from [employer] rep for [facility] left VM that [place] out of network SNF. Phone [phone] extn [phone] fax [phone]. She offered [facility], [facility], [facility], [facility], [facility] and [facility].
Varghese called back today and CM explained that need for HD cannot not be met at the other SNFs in network. Varghese was able to put in need for higher level of care and allow patient to go to [facility] SNF. AUTH # [id number]. AUth for 4 days
10-22-25--08/11.
Review with Kim Richard, fax clinical to her at [phone]. Patient can transition to SNF with this auth up until 11:59 pm on 10/26/25.
CM spoke to attending who has spoken to dgtr about other options for care. Attending to speak to patient and update CM.
CM spoke to [facility] SNF liaison. SHe will need HD information sent in [employer] and the first and last HD flow sheets to be fax to her at
[phone].
Per attending patient to stay until Friday as plan is for a GI procedure on Friday.
[2025-10-22] MEDS: RETACRIT 4000 UNITS IV (14:21)
--- NOTE | 2025-10-22 15:25 | W.PN.NEPH.HD ---
Assessment
-
pt seen during HD
vitals stable
UF as tolerates, he is below EDW
GI plan enteroscopy on Friday , there could be gut edema causing his symp
vol status seem euvolemic specially under his EDW
avf function fine
d/w GI
Progress Note - Hemodialysis
-
Date of Service: October 22, 2025
Duration: 30 minutes and 3 hours
Potassium Bath: 3
Calcium Bath: 2.5
Opti-Dialyzer: 160
Ultrafiltration: Other (0.5-1kg)
Blood Flow: 400
Dialysate Flow: 600
Heparin: no
EPO: 4000
[2025-10-22 17:35] LABS: Glucose - Point of Care 105 mg/dl (70-99)
[2025-10-22 22:23] LABS: Glucose - Point of Care 186 mg/dl (70-99)
[2025-10-23 03:21] VITALS: BP 143/67
[2025-10-23] MEDS: MORPHINE SULFATE 1 MG IV ×2 (03:57→08:30)
[2025-10-23 06:00] VITALS: BMI 23.5
[2025-10-23 07:20] VITALS: BP 144/64
[2025-10-23 08:25] LABS: Glucose - Point of Care 170 mg/dl (70-99)
[2025-10-23] MEDS: LIPITOR 80 MG PO (09:15)
[2025-10-23] MEDS: PHOSLO PO ×3 (09:15→16:37)
[2025-10-23] MEDS: COREG 6.25 MG PO ×2 (09:15→21:32)
[2025-10-23] MEDS: NOVOLOG FLEXPEN-LOW RESISTANCE 1 UNITS SC ×2 (09:27→14:33)
[2025-10-23] MEDS: LASIX 80 MG PO (09:27)
[2025-10-23] MEDS: COZAAR 25 MG PO (09:28)
[2025-10-23] MEDS: TIGAN 100 MG IM ×2 (09:28→21:32)
[2025-10-23 10:29] LABS: Hematocrit 30.6 % (39.0-52.0); Hemoglobin 9.7 g/dL (13.0-18.0); Mean Corp Hgb Conc. 31.7 g/dL (33.0-37.0); Mean Corpuscular Volume 97.5 fL (80.0-94.0); Platelet Count 191 10^3/uL (130-400); Red Cell Dist. Width 18.8 % (11.5-14.5)
[2025-10-23 10:58] LABS: ALT (SGPT) 17 U/L (0-50); AST (SGOT) 29 U/L (17-59); Albumin 4.2 g/dl (3.5-5.0); Alkaline Phosphatase 143 U/L (38-126); Blood Urea Nitrogen 34 mg/dl (9-20); Calcium 8.7 mg/dl (8.4-10.2); Carbon Dioxide 27 mmol/L (22-30); Chloride 92 mmol/L (98-107); Estimated Creatinine Clearance 11 ml/min; Glucose 161 mg/dl (70-99); Potassium 4.0 mmol/L (3.5-5.1); Sodium 135 mmol/L (135-145); Total Protein 6.9 g/dl (6.3-8.2); eGFR 10.62
[2025-10-23 11:49] LABS: C-Reactive Protein > 270.00 mg/L (0.0-10.00)
[2025-10-23 11:57] VITALS: BP 145/65
[2025-10-23 12:10] LABS: Glucose - Point of Care 167 mg/dl (70-99)
--- NOTE | 2025-10-23 13:03 | W.PN.NEPH.PH ---
Today's Communication / Plan
-
HD friday
Assessment/Plan
-
Impression:
ESRD TTS [facility] in [place]
HTN
AV fistula last fistulogram 02/2025
BPH
Anemia of chronic disease/ESRD
CAD/PA/CABG s/p stent 11/2023
RBBB
Paroxysmal A-fib
Chronic diastolic CHF
dizziness
Poor sleep
Vomiting
history of Schatzki's ring
Plan:
hemodynamically [place]
GI think venkata son CT could be from gut edema
He is much lower than his EDW so vol is at it best level
for enteroscopy tomorrow
FR 40 ounces/day
bp stable on coreg
-
-
Date of Service: October 23, 2025
CC / HPI / ROS
-
Chief Complaint:
abd pain
History of Present Illness:
ESRD Friday
Hemodynamically stable
no fever but increasing WBC 16.5
Review of Systems:
offers no cp ro sob at rest
no change in abd pain
on RA
no diarrhea
Labs
-
Labs:
WBC 16.5 10^3/uL (4.8-10.8) H 10/23/25 09:21
RBC 3.14 10^6/uL (4.70-6.10) L 10/23/25 09:21
Hgb 9.7 g/dL (13.0-18.0) L 10/23/25 09:21
Hct 30.6 % (39.0-52.0) L 10/23/25 09:21
Plt Count 191 10^3/uL (130-400) 10/23/25 09:21
Sodium 135 mmol/L (135-145) 10/23/25 09:21
Potassium 4.0 mmol/L (3.5-5.1) 10/23/25 09:21
Chloride 92 mmol/L (98-107) L 10/23/25 09:21
Carbon Dioxide 27 mmol/L (22-30) 10/23/25 09:21
BUN 34 mg/dl (9-20) H 10/23/25 09:21
Creatinine 5.0 mg/dL (0.7-1.3) H* 10/23/25 09:21
eGFR 10.62 10/23/25 09:21
Glucose 161 mg/dl (70-99) H 10/23/25 09:21
Calcium 8.7 mg/dl (8.4-10.2) 10/23/25 09:21
Phosphorus 5.8 mg/dl (2.5-4.5) H 10/19/25 06:31
Albumin 4.2 g/dl (3.5-5.0) 10/23/25 09:21
Physical Exam
-
Vital Signs:
Vital Signs
Temp Pulse Resp BP Pulse Ox
98.3 F 87 16 145/65 93
10/23/25 11:57 10/23/25 11:57 10/23/25 11:57 10/23/25 11:57 10/23/25 11:57
Cardiovascular:: Regular rate and rhythm
Respiratory:: Bilateral: CTA
Lung Excursion:: Normal
Abdomen:: Soft and Tender (left side tender)
Bowel Sounds:: Normal
Extremity Edema:: None: Bilateral:
Escobar Catheter: No
--- NOTE | 2025-10-23 13:16 | W.PN.GI.CBS2 ---
Today's Communication / Plan
-
NPO at [facility] for enteroscopy tomorrow
Will follow with you
Assessment / Plan
-
Israel Frost, 85-year-old with medical history significant for end-stage kidney disease on HD TTS, Afib on apixaban and recent admission to [facility] for enteritis about 2-3 weeks ago, was admitted to the hospital with weakness and frequent falls.
During his previous hospitalization, he was treated for enteritis for piperacillin-tazobactam which was transitioned to amoxicillin-clavulanate for a total of 7 days of antibiotics. At that admission, he complained of nausea, vomiting, abdominal
pain and diarrhea - all of which had improved by the time of discharge. He was sent home to complete 3 days of amox-clav. Independent of increased falling in the past week, he developed intermittent nausea around 10-12-25, which is 3 or so days
after he completed antibiotics. He was still moving his bowels daily and regularly. When he got admitted this time, on 10-18-25, he was nauseous intermittently but able to tolerate food and moving bowels. His nausea became acutely worse on 10-19-25
with abdominal pain and he could not tolerate oral intake. CR obstruction series showed nonspecific distention of small bowel. New leukocytosis. CT AP on 10-19-25 with findings suggesting enteritis/ileus, slightly progressed without hannah
obstruction. MRE on 10-21-25 with findings suggestive of enteritis with an associated ileus..
Impression:
* Acute abdominal pain with progressive nausea and vomiting
* Recent history of enteritis, treated for a total of 7 days with piperacillin-tazobactam then amoxicillin-clavulanate
* Ambulatory dysfunction with frequent falls
* End-stage kidney disease on TTS HD
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
* Chronically elevated troponin, type 2 demand ischemia in setting of ESKD
* Paroxysmal atrial fibrillation on apixaban 2.5 mg
* Type II diabetes mellitus
* Primary hypertension
* Benign prostatic hyperplasia
* History of ESBL Klebsiella, 2020
* History of CVA with left-sided hemiparesis
Recommendations
- Continue to hold AC
- Plan for enteroscopy Friday
- Stool studies thus far negative
- X-ray abdomen today with contrast completely passed and no bowel obstruction
- NPO at [facility]
Will follow with you
Subjective
Subjective
Date of Service: October 23, 2025
AXR yesterday showed contrast passing. Still poor appetite and abd pain. Eating very little and some nonbloody diarrhea yesterday.
Objective
Data Reviewed
Laboratory Data:
Laboratory Results
10/23/25 09:21
10/23/25 09:21
Laboratory Results
Phosphorus 5.8 mg/dl (2.5-4.5) H 10/19/25 06:31
Magnesium 2.0 mg/dl (1.6-2.3) 10/19/25 06:31
Total Bilirubin 0.9 mg/dl (0.2-1.3) 10/23/25 09:21
AST 29 U/L (17-59) 10/23/25 09:21
ALT 17 U/L (0-50) 10/23/25 09:21
Alkaline Phosphatase 143 U/L (38-126) H 10/23/25 09:21
Vital Signs and I&O:
Vital Signs
Temp Pulse Resp BP Pulse Ox
98.3 F 87 16 145/65 93
10/23/25 11:57 10/23/25 11:57 10/23/25 11:57 10/23/25 11:57 10/23/25 11:57
I&O
10/22/25 10/23/25 10/24/25
06:59 06:59 06:59
Intake Total 500 / 500 710 / 710
Output Total 0 / 0
Balance 500 / 500 710 / 710
Physical Exam
Physical Exam
GEN: No acute distress, conversant, pleasant
HEENT: anicteric, extraocular movements intact, clear oropharynx without exudates
GI: soft, mildly-distended, not tender to palpation, normal active bowel sounds, no hepatosplenomegaly
EXT: warm, well perfused, trace edema bilaterally
NEURO: AAOx3, non-focal
[2025-10-23] MEDS: FLUSH (NSS) 2 FLUSH IV ×2 (14:33→14:35)
[2025-10-23] MEDS: MORPHINE SULFATE 2 MG IV ×2 (14:35→21:33)
[2025-10-23] MEDS: LOTRISONE CREAM 1 APPLIC TOPICAL ×2 (14:36→21:39)
--- NOTE | 2025-10-23 14:36 | W.PN.HOSP.TC ---
Addendum entered and electronically signed by Bridgette Xiao MD 10/23/25 14:57:
I saw and evaluated the patient independently. I reviewed and discussed the resident�s note and agree with findings and plan as documented by Dr. Rosas.
GENERAL: well developed, well nourished, male appears ill
HEENT: NC/AT
HEART: irreg irreg, murmur
LUNGS : clear to auscultation bilaterally
ABDOM: soft, nontender, nondistended, + bowel sounds
EXT: no cyanosis, clubbing, or edema
NEUROLOGIC: flat affect--grossly intact--appears depressed and as if he has given up
abdominal pain--CT again shows acute enteritis--suspect more bowel wall edema as pt cannot tolerate complete HD course--would not give ABX--apprec GI, MR enterography still reading as enteritis---stool studies with C. diff antigen positive toxin
negative, norovirus neg---2 gm sodium diet
ESRD on hemodialysis/Hyperkalemia/Hyponatremia--Friday, , Friday schedule--apprec renal--cont meds as able--patient states that for the last 3 years he has been unable to complete a 4-hour dialysis treatment due to intolerance and
dizziness/weakness--now developing total body itching--trying atarax
Anemia of chronic kidney disease-- no signs of active bleeding
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
Essential hypertension--meds as able
Paroxysmal atrial fibrillation/Right bundle branch block--Continue Eliquis, Coreg
Chronic heart failure with mildly reduced EF 40% in 06/2025 with stage 2 diastolic dysfunction--volume controlled by HD
BPH--Continue tamsulosin
Hyperlipidemia--Continue atorvastatin
Depression/Anxiety/Insomnia--Continue Zoloft 50 mg twice daily, mirtazapine 7.5 mg nightly
CODE STATUS--DNR
DVT proph-- Eliquis
I believe the pt may be approaching hospice--called his daughter Susan to discuss 10/22/25
10/23/25 --spoke with the patient and explained that I believe his abdominal pain is from worsening kidney failure from inability to tolerate dialysis and bowel wall edema as well as the itching now because of worsening renal function--I did ask the
patient if he wished to pursue ongoing lab draws, tests, procedures or would he rather be comfortable, he stated, 'I would want to be comfortable'
I also spoke with him about the possibility of hospice, explained its philosophy and that he would need to stop dialysis but that we would have our hospice fellow meet with them (patient and daughter) 10/24/2025 to determine next steps--his
daughter stated that he she would be in the hospital approximately 10:30-11:00
Original Note:
Today's Communication/Plan
-
pt considering hospice care/comfort care given ESRD with inability to tolerate full dialysis, chronic issues and overall feelings regarding his state of health
increase morphine to 2mg prn for pain for now
hydroxyzine for itching
daughter Susan contacted regarding prognosis and pt feeling on wanting comfort care -- family meeting tomorrow to decide GOC
keep Eliquis on hold for now pending final decision on enteroscopy procedure
Assessment / Plan
Assessment / Plan
85-year-old with medical history significant for end-stage kidney disease on HD TTS, Afib on apixaban and recent admission to [facility] for enteritis about 2-3 weeks ago, readmitted to the hospital with weakness and frequent falls
Weight 73.6 kg, temp 97.7, BP 143/59, RR 18, saturation O2 93. On room
Troponin: 0.170--0.584--0.601 high
Blood glucose 137, creatinine 4.2--5.7 high, bun 25--36, phosphorus 5.8, calcium 8.3 low
No MRSA, flu negative
CT scan 10/19:
Findings suggesting enteritis/ileus, slightly progressed. No hannah obstruction.
C.Diff toxin negative
#Ambulatory Dysfunction:
#Frequent Falls
- Patient describes lightheaded sensation - no dizziness/vertigo.
- Imaging studies done in the ED show no acute injury, fracture, etc.
- Diffuse DDD throughout the spine.
- No new focal neurologic deficits by exam.
- PT/OT evaluations - SNF was previously recommended but patient declined during last admission
- Orthostatic vital signs positive on 10/19. continue to follow orthostatic vital signs; stop Tamsulosin, also holding Amlodipine. Will add compression stockings.
- follow BP; may need adjustments of BP meds
#Nausea/vomiting/Diarrhea:
- recent Enteritis 2 weeks ago; completed antibiotics with symptomatic improvement
- symptoms reoccurred Since
- will start with obstruction series/AXR
- may need repeat CT with IV contrast, and if feasible, oral contrast
- if diarrhea, will send stool studies
-EKG: QT 428, QTc 517 ms
- Prn Tigan IM; QTC 500 precludes other anti-emetics at present
- Hydraulic [employer]om Operator recommended if the patient cannot tolerate oral then they are planning to do with IV contrast only, if CT is negative eventually they are going to do endoscopy procedure. His last endoscopy 2016.
Dialysis tomorrow.
- Seen by GI:
- Cdiff antigen +, toxin negative
- stool studies negative, no WBCs
- fecal calprotectin pending
- MRE showing mildly dilated loops of small bowel with areas of enhancement and mild wall thickening suggestive of enteritis with associated ileus, follow-up of abdomen x-ray demonstrating complete passage of contrast
- Eliquis on hold for possible push enteroscopy Friday, presuming this aligns with patient's GOC
# The patient has end-stage renal disease with recurrent enteritis CT scan findings with symptoms of lower abdominal pain probably secondary to bowel edema due to volume overload.
#Chronic SOB and chest pain with ambulation:
Chronically elevated troponin, type 2 demand ischemia in setting of ESRD
Hx of CAD s/p CABG
- trend trops to peak
- Repeat echo 10/19/2025 showing no other significant changes from prior
- last noted ischemic eval [facility] 2023; patient vessels
# End-stage renal on partial hemodialysis:
#Uremic Pruritus
- Stable. Has issues tolerating complete dialysis sessions due to abdominal pain / weakness.
- Nephrology evaluation for HD needs during acute stay.
- Continue usual meds/phosphate binders/etc.
- c/w hydroxyzine
#Hx of CVA with L hemiparesis:
- No new chest pain, focal neuro deficits, etc.
- Continue current CV med regimen.
#Chronic HFmrEF:
- Stable. Does not appear grossly volume overloaded.
- Continue furosemide for now - mostly due to fact that patient does not tolerate full/recommended HD sessions. Consider reducing from BID to daily dosing.
- Follow weights, I/Os, etc and adjust or eliminate diuretic regimen if needed.
Echo 10/19
1. Ejection fraction is 40% by visual assessment.
2. Compared to a prior transthoracic echocardiogram study from June 2024 no significant changes are seen.
3. Calcified trileaflet aortic valve with decreased leaflet excursion. Mild aortic stenosis with mean pressure gradient of 14 mmHg and estimated aortic valve area 1.68 cm2 using LVOT diameter of 2.1 cm. Trace aortic insufficiency.
4. Left ventricular wall motion is diffusely hypokinetic.
5. Mild to moderate mitral valve regurgitation.
#Paroxysmal Atrial Fibrillation:
- Stable. Continue carvedilol with holding parameters.
- Continue Eliquis for stroke risk reduction - may need to revisit risk:benefits if fall risk remains high.
# Insulin-required type 2 diabetes:
- Stable. Most recent A1C (summer) was < 6%. Repeat 5.5%
- Follow glucose and cover with SSI if necessary.
#Benign Hypertension
- Monitor BP including orthostatic signs.
- Adjust regimen as needed to avoid hypotension/lightheadedness.
# Benign prostatic hyperplasia
- Hold tamsulosin for now as noted above.
- Bladder scan protocol/follow for any evidence of urinary retention.
Disposition status pending : discuss [place] details with case management.
DVT Prophylaxis: SCDs
Code Status: DNR/DNI
Anticipated Discharge: > 48 hours
Subjective/Interval History
-
Date of Service: October 23, 2025
pt maintains complaints of LLQ abd pain, itching, fatigue, weakness. No acute overnight events. Pt not eating throughout the day, only dinner.
Objective Data
-
Labs:
Laboratory Results
10/23/25
09:21
WBC 16.5 H
Hgb 9.7 L
Hct 30.6 L
Plt Count 191
Sodium 135
Potassium 4.0
Chloride 92 L
Carbon Dioxide 27
BUN 34 H
Creatinine 5.0 H*
Glucose 161 H
Calcium 8.7
Total Bilirubin 0.9
AST 29
ALT 17
Alkaline Phosphatase 143 H
Vital Signs:
Vital Signs
Temp Pulse Resp BP Pulse Ox
98.3 F 87 16 145/65 93
10/23/25 11:57 10/23/25 11:57 10/23/25 11:57 10/23/25 11:57 10/23/25 11:57
I&O
10/22/25 10/23/25 10/24/25
06:59 06:59 06:59
Intake Total 500 / 500 710 / 710
Output Total 0 / 0
Balance 500 / 500 710 / 710
Review of Systems
-
History Source: Patient
All other systems: Reviewed and negative
Constitutional: Reports No Appetite, Fatigue and Weakness; Denies Chills
EENT: Reports No Symptoms Reported
Respiratory: Reports No Symptoms
Cardiac: Reports No Symptoms
Abdomen/GI: Reports Abdominal Pain and Anorexia; Denies Nausea, Vomiting, Diarrhea or Constipated
Genitourinary: Reports No Symptoms
Musculoskeletal: Reports Joint Pain (back pain)
Skin: Reports No Symptoms
Neuro: Reports No Symptoms
Physical Exam
-
General: No Apparent Distress and Appears Chronically Ill
HEENT: Normocephalic, Atraumatic, Moist Mucous Membranes, Anicteric, Barrera Conjunctivae, PERRLA, Nose Appears Normal and Ears Appear Normal
Respiratory: Clear to Auscultation and Non Labored Respirations; Negative Wheezes, Rales or Rhonchi
Cardiac: Regular Rhythm and S1/S2; Negative Murmur
GI: Soft, Nondistended, Normal Bowel Sounds and Tender (diffuse, but greatest in the LLQ)
Genito-urinary: No Costovertebral Tender
Musculoskeletal: No Clubbing, No Cyanosis and No Edema
Skin: Warm, Dry and IV Access / Catheter Site
Neuro: AO x 3
Psych: Depressed and Other (flat affect, minimal engagement)
[2025-10-23 15:30] VITALS: BP 137/64
[2025-10-23 17:25] LABS: Glucose - Point of Care 143 mg/dl (70-99)
[2025-10-23] MEDS: NOVOLOG FLEXPEN-LOW RESISTANCE SC (17:57)
[2025-10-23 19:19] VITALS: BP 151/68
[2025-10-23 22:02] LABS: Glucose - Point of Care 167 mg/dl (70-99)
[2025-10-23 23:21] VITALS: BP 140/66
[2025-10-24] MEDS: ATARAX 10 MG PO (00:32)
[2025-10-24] MEDS: MORPHINE SULFATE 1 MG IV (00:32)
[2025-10-24 03:21] VITALS: BP 136/70
[2025-10-24 06:00] VITALS: BMI 23.0
--- NOTE | 2025-10-24 07:04 | W.PN.HOSP.TC ---
Today's Communication/Plan
-
- Switch the patient's care to comfort care after hospice meeting today.
- Eliquis on hold for possible enteroscopy today, which was canceled by suspecting his sat level and edema due to end-stage renal disease probably causing his left lower abdominal pain.
Assessment / Plan
Assessment / Plan
85-year-old with medical history significant for end-stage kidney disease on HD TTS, Afib on apixaban and recent admission to [facility] for enteritis about 2-3 weeks ago, readmitted to the hospital with weakness and frequent falls
Weight 73.6 kg, temp 98.2, ND 99, BP 136/70
#Ambulatory Dysfunction:
#Frequent Falls
- Patient describes lightheaded sensation - no dizziness/vertigo.
- Imaging studies done in the ED show no acute injury, fracture, etc.
- Diffuse DDD throughout the spine.
- No new focal neurologic deficits by exam.
- PT/OT evaluations - SNF was previously recommended but patient declined during last admission
- Orthostatic vital signs positive on 10/19. continue to follow orthostatic vital signs; stop Tamsulosin, also holding Amlodipine. Will add compression stockings.
- follow BP; may need adjustments of BP meds
#Nausea/vomiting/Diarrhea:
- creatinine 4.2--5.7 high, bun 25--36,
-s/p C-reactive protein> 270 high
-No MRSA, flu negative
- recent Enteritis 2 weeks ago; completed antibiotics with symptomatic improvement
- symptoms reoccurred Since
-EKG: QT 430,
- Prn Tigan IM; QTC 500 precludes other anti-emetics at present
- Rn Quality recommended if the patient cannot tolerate oral then they are planning to do with IV contrast only, if CT is negative eventually they are going to do endoscopy procedure. His last endoscopy 2016.
His last hemodialysis on Friday 3 hours 30 minutes completed.
- Seen by GI:
- Cdiff antigen +, toxin negative
- stool studies negative, no WBCs
- fecal calprotectin pending
- MRE showing mildly dilated loops of small bowel with areas of enhancement and mild wall thickening suggestive of enteritis with associated ileus, follow-up of abdomen x-ray demonstrating complete passage of contrast
- Eliquis on hold for possible push enteroscopy Friday, which was canceled by suspecting his sat level and edema due to end-stage renal disease probably causing his left lower abdominal pain.
CT scan 10/19:
-Findings suggesting enteritis/ileus, slightly progressed. No hannah obstruction.
-C.Diff toxin negative
# The patient has end-stage renal disease with recurrent enteritis CT scan findings with symptoms of lower abdominal pain probably secondary to bowel edema due to volume overload.
#Chronic SOB and chest pain with ambulation:
Chronically elevated troponin, type 2 demand ischemia in setting of ESRD
Hx of CAD s/p CABG
- trend trops to peak
- Repeat echo 10/19/2025 showing no other significant changes from prior
- last noted ischemic eval [facility] 2023; patient vessels
# End-stage renal on partial hemodialysis:
#Uremic Pruritus
- Stable. Has issues tolerating complete dialysis sessions due to abdominal pain / weakness.
- Nephrology evaluation for HD needs during acute stay.
- Continue usual meds/phosphate binders/etc.
- c/w hydroxyzine
- Itchiness secondary to end-stage renal disease. Treating with hydroxyzine.
#Hx of CVA with L hemiparesis:
- No new chest pain, focal neuro deficits, etc.
- Continue current CV med regimen.
#Chronic HFmrEF:
- Stable. Does not appear grossly volume overloaded.
- Continue furosemide for now - mostly due to fact that patient does not tolerate full/recommended HD sessions. Consider reducing from BID to daily dosing.
- Follow weights, I/Os, etc and adjust or eliminate diuretic regimen if needed.
-s/p Troponin: 0.170--0.584--0.601 high
Echo 10/19
1. Ejection fraction is 40% by visual assessment.
2. Compared to a prior transthoracic echocardiogram study from June 2024 no significant changes are seen.
3. Calcified trileaflet aortic valve with decreased leaflet excursion. Mild aortic stenosis with mean pressure gradient of 14 mmHg and estimated aortic valve area 1.68 cm2 using LVOT diameter of 2.1 cm. Trace aortic insufficiency.
4. Left ventricular wall motion is diffusely hypokinetic.
5. Mild to moderate mitral valve regurgitation.
#Paroxysmal Atrial Fibrillation:
- Stable. Continue carvedilol with holding parameters.
- Continue Eliquis for stroke risk reduction - may need to revisit risk:benefits if fall risk remains high.
# Insulin-required type 2 diabetes:
- Stable. Most recent A1C (summer) was < 6%. Repeat 5.5%
- Follow glucose and cover with SSI if necessary.
#Benign Hypertension
- Monitor BP including orthostatic signs.
- Adjust regimen as needed to avoid hypotension/lightheadedness.
# Benign prostatic hyperplasia
- Hold tamsulosin for now as noted above.
- Bladder scan protocol/follow for any evidence of urinary retention.
# Today morning patient received Dilaudid 1 mg IV stat for given his pain scale 10/26.
Disposition status pending : Hospice meeting,
DVT Prophylaxis: SCDs
Code Status: DNR/DNI
Anticipated Discharge: 24 - 48 hours
Subjective/Interval History
-
Date of Service: October 24, 2025
Overnight the patient refused food, medication due to nausea, left lower abdominal pain and Tigan 100 mg twice from yesterday evening. Denies fever, palpitation, chest pain, dizziness.
Today morning the patient had dark vomit and feels like whole body is aching. His last meal was around yesterday 9:30 AM. He has concern for itchiness whole body.
Patient kept on telemetry to monitor QT interval. Today ND 0.12, RR 0.59, QT 430 ms, premature ventricular contraction detected.
Canceled upper endoscopy today by GI-and suspected probably his left lower pain due to bowel edema.
Objective Data
-
Vital Signs:
Vital Signs
Temp Pulse Resp BP Pulse Ox
98.2 F 99 18 136/70 94
10/24/25 03:21 10/24/25 03:21 10/24/25 03:21 10/24/25 03:21 10/24/25 04:22
I&O
10/23/25 10/24/25 10/25/25
06:59 06:59 06:59
Intake Total 710 / 710 780 / 780
Output Total 0 / 0
Balance 710 / 710 780 / 780
Review of Systems
-
History Source: Patient
All other systems: Reviewed and negative
Physical Exam
-
General: Well Developed, Well Nourished, Appears in Distress and Pain
Respiratory: Clear to Auscultation
Cardiac: Regular Rhythm and S1/S2
GI: Soft, Nondistended, Normal Bowel Sounds and Tender (02/24)
Genito-urinary: No Costovertebral Tender
Musculoskeletal: No Clubbing, No Cyanosis and No Edema
Skin: Warm
Neuro: AO x 3
Hematologic / Lymphatic: No Lymphadenopathy
--- NOTE | 2025-10-24 08:12 | W.PN.UPDATE ---
Update Note
Progress Note Update
Received update from Dr Wang
Cx enteroscopy for today. Agree that likely gut wall edema is cause of pain and poor appetite
Agree with hospice. GI can be available today if needed for family meeting. Please let us know time.
[2025-10-24] MEDS: MORPHINE SULFATE 2 MG IV ×2 (08:23→16:03)
[2025-10-24] MEDS: TIGAN 100 MG IM (08:26)
[2025-10-24 08:55] VITALS: BP 136/94
--- NOTE | 2025-10-24 08:55 | W.PN.GI.CBS2 ---
Addendum entered and electronically signed by Alma Ortega Do, MD 10/24/25 10:46:
I saw and evaluated the patient. I reviewed the resident�s note and agree with findings and plan as documented in the resident�s note.
Enteroscopy is low yield and abd pain/poor appetite likely related to gut wall edema . D/w pt and he is interested in hospice. Cx endoscopy. Also confirmed with daughter. C/w diet add smoothies for pleasure. Ok for IV morphine. Above d/w
hospitalist team. They prefer hospice in facility not home. Recommend hospice consult. GI will sign off please call for ?
Original Note:
Today's Communication / Plan
-
* Defer enteroscopy in lieu of C discussions per primary
Assessment / Plan
-
Israel Frost, 85-year-old with medical history significant for end-stage kidney disease on HD TTS, Afib on apixaban and recent admission to [facility] for enteritis about 2-3 weeks ago, was admitted to the hospital with weakness and frequent falls.
During his previous hospitalization, he was treated for enteritis for piperacillin-tazobactam which was transitioned to amoxicillin-clavulanate for a total of 7 days of antibiotics. At that admission, he complained of nausea, vomiting, abdominal
pain and diarrhea - all of which had improved by the time of discharge. He was sent home to complete 3 days of amox-clav. Independent of increased falling in the past week, he developed intermittent nausea around 10-12-25, which is 3 or so days
after he completed antibiotics. He was still moving his bowels daily and regularly. When he got admitted this time, on 10-18-25, he was nauseous intermittently but able to tolerate food and moving bowels. His nausea became acutely worse on 10-19-25
with abdominal pain and he could not tolerate oral intake. CR obstruction series showed nonspecific distention of small bowel. New leukocytosis. CT AP on 10-19-25 with findings suggesting enteritis/ileus, slightly progressed without hannah
obstruction. MRE on 10-21-25 with findings suggestive of enteritis with an associated ileus.
Impression:
* Acute abdominal pain with progressive nausea and vomiting
* Recent history of enteritis, treated for a total of 7 days with piperacillin-tazobactam then amoxicillin-clavulanate
* Ambulatory dysfunction with frequent falls
* End-stage kidney disease on TTS HD
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
* Chronically elevated troponin, type 2 demand ischemia in setting of ESKD
* Paroxysmal atrial fibrillation on apixaban 2.5 mg
* Type II diabetes mellitus
* Primary hypertension
* Benign prostatic hyperplasia
* History of ESBL Klebsiella, 2020
* History of CVA with left-sided hemiparesis
Recommendations:
- Differential includes but is not limited to persistent enteritis, bowel wall edema (from chronic incomplete HD) or primary inflammatory process.
- Continue to hold AC
- Defer enteroscopy today in lieu of hospice discussions.
- Stool studies thus far negative.
- Analgesic and antiemetics as needed.
- Afebrile and hemodynamically stable; no present need for antibiotics.
Subjective
Subjective
Date of Service: October 24, 2025
Nausea and pain persists - unchanged.
Objective
Data Reviewed
Laboratory Data:
Laboratory Results
10/23/25 09:21
10/23/25 09:21
Laboratory Results
Phosphorus 5.8 mg/dl (2.5-4.5) H 10/19/25 06:31
Magnesium 2.0 mg/dl (1.6-2.3) 10/19/25 06:31
Total Bilirubin 0.9 mg/dl (0.2-1.3) 10/23/25 09:21
AST 29 U/L (17-59) 10/23/25 09:21
ALT 17 U/L (0-50) 10/23/25 09:21
Alkaline Phosphatase 143 U/L (38-126) H 10/23/25 09:21
Vital Signs and I&O:
Vital Signs
Temp Pulse Resp BP Pulse Ox
98.2 F 99 18 136/70 94
10/24/25 03:21 10/24/25 03:21 10/24/25 03:21 10/24/25 03:21 10/24/25 04:22
I&O
10/23/25 10/24/25 10/25/25
06:59 06:59 06:59
Intake Total 710 / 710 780 / 780
Output Total 0 / 0
Balance 710 / 710 780 / 780
Physical Exam
Physical Exam
HEENT: Anicteric
Cardiology: Normal Sinus Rhythm
Pulmonary: Clear
GI: Soft, Tender and Normal Bowel Sounds
[2025-10-24 09:00] LABS: Glucose - Point of Care 178 mg/dl (70-99)
--- NOTE | 2025-10-24 09:16 | W.PN.NEPH.PH ---
Today's Communication / Plan
-
Likely for dialysis tomorrow unless patient chooses hospice
Assessment/Plan
-
Impression:
ESRD TTS [facility] in [place]
HTN
AV fistula last fistulogram 02/2025
BPH
Anemia of chronic disease/ESRD
CAD/FL/CABG s/p stent 11/2023
RBBB
Paroxysmal A-fib
Chronic diastolic CHF
dizziness
Poor sleep
Vomiting
history of Schatzki's ring
Plan:
hemodynamically stable
GI think venkata son CT could be from gut edema
He is much lower than his EDW so vol is at it best level
for enteroscopy today
FR 40 ounces/day
bp stable on coreg
If patient does not pursue hospice we will have to dialyze him tomorrow, hospice discussions to be
-
-
Date of Service: October 24, 2025
CC / HPI / ROS
-
Chief Complaint:
abd pain
History of Present Illness:
ESRD Friday
Hemodynamically stable
no fever but increasing WBC 16.5
Review of Systems:
offers no cp ro sob at rest
no change in abd pain
on RA
no diarrhea
Labs
-
Labs:
WBC 16.5 10^3/uL (4.8-10.8) H 10/23/25 09:21
RBC 3.14 10^6/uL (4.70-6.10) L 10/23/25 09:21
Hgb 9.7 g/dL (13.0-18.0) L 10/23/25 09:21
Hct 30.6 % (39.0-52.0) L 10/23/25 09:21
Plt Count 191 10^3/uL (130-400) 10/23/25 09:21
Sodium 135 mmol/L (135-145) 10/23/25 09:21
Potassium 4.0 mmol/L (3.5-5.1) 10/23/25 09:21
Chloride 92 mmol/L (98-107) L 10/23/25 09:21
Carbon Dioxide 27 mmol/L (22-30) 10/23/25 09:21
BUN 34 mg/dl (9-20) H 10/23/25 09:21
Creatinine 5.0 mg/dL (0.7-1.3) H* 10/23/25 09:21
eGFR 10.62 10/23/25 09:21
Glucose 161 mg/dl (70-99) H 10/23/25 09:21
Calcium 8.7 mg/dl (8.4-10.2) 10/23/25 09:21
Phosphorus 5.8 mg/dl (2.5-4.5) H 10/19/25 06:31
Albumin 4.2 g/dl (3.5-5.0) 10/23/25 09:21
Physical Exam
-
Vital Signs:
Vital Signs
Temp Pulse Resp BP Pulse Ox
98.2 F 99 18 136/70 94
10/24/25 03:21 10/24/25 03:21 10/24/25 03:21 10/24/25 03:21 10/24/25 04:22
Cardiovascular:: Regular rate and rhythm
Respiratory:: Bilateral: CTA
Lung Excursion:: Normal
Abdomen:: Soft and Tender (left side tender)
Bowel Sounds:: Normal
Extremity Edema:: None: Bilateral:
Escobar Catheter: No
[2025-10-24] MEDS: PHOSLO PO ×3 (09:44→16:48)
[2025-10-24] MEDS: NOVOLOG FLEXPEN-LOW RESISTANCE 1 UNITS SC (09:45)
[2025-10-24] MEDS: LASIX 80 MG PO (09:52)
[2025-10-24] MEDS: COREG 6.25 MG PO (09:52)
[2025-10-24] MEDS: LIPITOR 80 MG PO (09:52)
[2025-10-24] MEDS: LOTRISONE CREAM 1 APPLIC TOPICAL (09:53)
[2025-10-24] MEDS: COZAAR 25 MG PO (09:53)
--- NOTE | 2025-10-24 10:33 | W.PN.GI.CBS2 ---
Today's Communication / Plan
-
See above
Assessment / Plan
-
Israel Frost, 85-year-old with medical history significant for end-stage kidney disease on HD TTS, Afib on apixaban and recent admission to [facility] for enteritis about 2-3 weeks ago, was admitted to the hospital with weakness and frequent falls.
During his previous hospitalization, he was treated for enteritis for piperacillin-tazobactam which was transitioned to amoxicillin-clavulanate for a total of 7 days of antibiotics. At that admission, he complained of nausea, vomiting, abdominal
pain and diarrhea - all of which had improved by the time of discharge. He was sent home to complete 3 days of amox-clav. Independent of increased falling in the past week, he developed intermittent nausea around 10-12-25, which is 3 or so days
after he completed antibiotics. He was still moving his bowels daily and regularly. When he got admitted this time, on 10-18-25, he was nauseous intermittently but able to tolerate food and moving bowels. His nausea became acutely worse on 10-19-25
with abdominal pain and he could not tolerate oral intake. CR obstruction series showed nonspecific distention of small bowel. New leukocytosis. CT AP on 10-19-25 with findings suggesting enteritis/ileus, slightly progressed without hannah
obstruction. MRE on 10-21-25 with findings suggestive of enteritis with an associated ileus.
Impression:
* Acute abdominal pain with progressive nausea and vomiting
* Recent history of enteritis, treated for a total of 7 days with piperacillin-tazobactam then amoxicillin-clavulanate
* Ambulatory dysfunction with frequent falls
* End-stage kidney disease on TTS HD
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
* Chronically elevated troponin, type 2 demand ischemia in setting of ESKD
* Paroxysmal atrial fibrillation on apixaban 2.5 mg
* Type II diabetes mellitus
* Primary hypertension
* Benign prostatic hyperplasia
* History of ESBL Klebsiella, 2020
* History of CVA with left-sided hemiparesis
Recommendations:
- Differential includes but is not limited to persistent enteritis, bowel wall edema (from chronic incomplete HD) or primary inflammatory process.
- Continue to hold AC
- Defer enteroscopy today in lieu of hospice discussions.
- Stool studies thus far negative.
- Analgesic and antiemetics as needed.
- Afebrile and hemodynamically stable; no present need for antibiotics.
Subjective
Subjective
Date of Service: October 24, 2025
Objective
Data Reviewed
Laboratory Data:
Laboratory Results
10/23/25 09:21
10/23/25 09:21
Laboratory Results
Phosphorus 5.8 mg/dl (2.5-4.5) H 10/19/25 06:31
Magnesium 2.0 mg/dl (1.6-2.3) 10/19/25 06:31
Total Bilirubin 0.9 mg/dl (0.2-1.3) 10/23/25 09:21
AST 29 U/L (17-59) 10/23/25 09:21
ALT 17 U/L (0-50) 10/23/25 09:21
Alkaline Phosphatase 143 U/L (38-126) H 10/23/25 09:21
Vital Signs and I&O:
Vital Signs
Temp Pulse Resp BP Pulse Ox
98.2 F 93 18 136/94 94
10/24/25 08:55 10/24/25 09:53 10/24/25 08:55 10/24/25 09:53 10/24/25 08:55
I&O
10/23/25 10/24/25 10/25/25
06:59 06:59 06:59
Intake Total 710 / 710 780 / 780
Output Total 0 / 0
Balance 710 / 710 780 / 780
[2025-10-24] MEDS: DILAUDID 1 MG IV (12:37)
--- NOTE | 2025-10-24 12:50 | HOSPNOTE ---
Met with patient and daughter. The patient does not wish to continue dialysis. The plan is to transition the patient to inpatient hospice tomorrow 10/25 for pain management requiring IV medications. The attending and CM aware of plan. The daughter is
tearful but respects patient's decision. Will call admissions tomorrow to get hospice chart ready.
--- NOTE | 2025-10-24 13:13 | CM ---
Hospice consult. Patient to transition to inpatient hospice on 10/25/25.
--- NOTE | 2025-10-24 14:21 | PTOTSP ---
Chart reviewed and spoke with RN; patient to transition to hospice care.
Skilled therapy no longer warranted and will be discharged at this time.
--- NOTE | 2025-10-24 15:37 | HOSPNOTE ---
Patient will be admitted inpatient hospice today. Admissions was called and chart will be ready.
[2025-10-24 15:51] VITALS: BP 135/65
--- NOTE | 2025-10-24 15:55 | W.DCSUMMARY ---
Documented by User: Shannan Arce MD, Resident 10/24/25 16:09
Discharge Summary
Discharge Data
Date of Admission: 10/20/25
Date of Discharge: 10/24/25
-
Pending Results: No
Hospital Course
Discharging Physician : Dr Ed Brown MD
Dr Shannan Arce MD
Disposition : Hospice inpatient
Primary care physician : Unknown
Principal Discharge diagnosis : End-stage renal disease on hemodialysis 3 times a week
Chronic Discharge diagnosis :
# Ambulatory dysfunction
# Chronic nausea/vomiting secondary to bowel edema probably end-stage renal disease could be the cause
# History of cerebrovascular accident with left hemiparesis
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
# Chronic HFmrEF
# Paroxysmal atrial fibrillation
# Insulin required type 2 diabetes mellitus
# Benign hypertension
# Benign prostatic hyperplasia.
Hospital Course :
85-year-old male with medical history significant for end-stage renal disease on hemodialysis 3 times a week, A-fib on apixaban and recent admission to [facility] for enteritis about 2 to 3 weeks ago was readmitted to the hospital on 10/18 for fatigue,
weakness, fall risk. Patient received hemodialysis at around this admission, radio repairer consulted, lean manufacturing leader consulted for given his chronic lower quadrant abdominal pain. Stool studies showed negative for acute infections including C.
difficile. On CT scan findings include enteritis/ileus with no hannah obstruction lean manufacturing leader suggested for MR enterography and the findings suggestive of enteritis with an associated ileitis. Discussed the results with the daughter and the
future management and care. His chronic lower left abdominal pain was secondary to bowel edema probably due to end-stage renal disease. Pain, nausea managed with morphine, Dilaudid, Tigan at this admission. Patient was continuously deteriorating
day-by-day from the time of admission. Canceled the endoscopy procedure by the lean manufacturing leader but given his condition.
Explained and discussed in detail with the daughter, patient and the patient was willing to sign up for hospice in future which includes comfort care.
IMPORTANT:
If your symptoms worsen when you get home, go to the Emergency Room if you cannot reach a doctor, or call 911
Documentation is complete at this time.
Important imaging findings :
CT scan 10/19:
-Findings suggesting enteritis/ileus, slightly progressed. No hannah obstruction.
-C.Diff toxin negative
MRE on 10-21-25 with findings suggestive of enteritis with an associated ileus.
Procedure findings : None
Discharge Plan
-
Patient Disposition: Hospice - Inpatient
Discharge Orders:
Discharge Patient (As Directed); Ordered 10/24/25
Ordered By: Shannan Arce
Discharge Date and Time
Print Language: CUBAN

Documented by User: Ed Brown DO 10/24/25 16:26
Discharge Summary
Discharge Data
Date of Admission: 10/20/25
Date of Discharge: 10/24/25
Total time spent discharging patient (in min): 34
Discharge Plan
-
Patient Disposition: Hospice - Inpatient
Discharge Orders:
Discharge Patient (As Directed); Ordered 10/24/25
Ordered By: Shannan Arce
Discharge Date and Time
Print Language: CUBAN
[2025-10-24] MEDS: NSS (PRESERVATIVE FREE) 10 ML IV (16:03)
[2025-10-24] MEDS: PROTONIX IV 40 MG IV (16:03)
--- NOTE | 2025-10-24 16:36 | CM ---
Patient has been discharged to inpatient hospice services.
[2025-10-24] MEDS: NOVOLOG FLEXPEN-LOW RESISTANCE SC (16:48)
== END 2025-10-24 17:03 | disposition hospice, inpatient (51) | DRG 393 ==
LOC: 2 NORTH 07:18
PROVIDERS: Internal Medicine; Internal Medicine Gastroenterology; Nurse Practitioner Family; ADMITTING PHYSICIAN Hospitalist; ATTENDING PHYSICIAN Internal Medicine; CONSULT PHYSICIAN Internal Medicine Gastroenterology; EMERGENCY PHYSICIAN Emergency Medicine; FAMILY PHYSICIAN Family Medicine; OTHER PHYSICIAN Specialist
PROC: 5A1D70Z Performance of Urinary Filtration, Intermittent, Less than 6 Hours Per Day (ICD-10-PCS; 2025-10-20)
DX: K63.89 Other specified diseases of intestine (principal); N18.6 End stage renal disease; I13.2 Hypertensive heart and chronic kidney disease with heart failure and with stage 5 chronic kidney disease, or end stage renal disease; I69.354 Hemiplegia and hemiparesis following cerebral infarction affecting left non-dominant side; I50.42 Chronic combined systolic (congestive) and diastolic (congestive) heart failure; K56.7 Ileus, unspecified; E11.22 Type 2 diabetes mellitus with diabetic chronic kidney disease; Z99.2 Dependence on renal dialysis; I48.0 Paroxysmal atrial fibrillation; R33.8 Other retention of urine; N40.1 Benign prostatic hyperplasia with lower urinary tract symptoms; I25.10 Atherosclerotic heart disease of native coronary artery without angina pectoris; Z95.1 Presence of aortocoronary bypass graft; R29.6 Repeated falls; D63.1 Anemia in chronic kidney disease; Z87.891 Personal history of nicotine dependence; Z79.01 Long term (current) use of anticoagulants; Z66 Do not resuscitate; I34.0 Nonrheumatic mitral (valve) insufficiency; E78.00 Pure hypercholesterolemia, unspecified; I25.2 Old myocardial infarction; I45.10 Unspecified right bundle-branch block; K57.30 Diverticulosis of large intestine without perforation or abscess without bleeding; W10.9XXA Fall (on) (from) unspecified stairs and steps, initial encounter; Z79.899 Other long term (current) drug therapy; Z86.19 Personal history of other infectious and parasitic diseases; Z86.718 Personal history of other venous thrombosis and embolism; Z91.199 Patient's noncompliance with other medical treatment and regimen due to unspecified reason; Z95.5 Presence of coronary angioplasty implant and graft; Z11.52 Encounter for screening for COVID-19
CPT/HCPCS: 70450; 71046; 72050; 72072; 72110; 72197; 74019; 74022; 74177; 74183; 80048; 80053; 81003; 81015; 82962; 83036; 83735; 83993; 84100; 84484; 85025; 85027; 85652; 86140; 87045; 87046; 87070; 87077; 87086; 87324; 87427; 87449; 87502; 87798; 87811; 89055; 93005; 93308; 93321; 93325; 96374; 96375; 96376; 97167; 97530; 99285; A9585; P9047; Q5106; Q9967

== ENCOUNTER 2025-10-24 17:08 | Inpatient (IN) | payer OTHER, SELFPAY ==
--- NOTE | 2025-10-24 16:10 | HPS.HSE ---
Family Physician
-
Family Physician: INTERVIEWE UNKNOWN - PT NOT
Chief Complaint
-
Inpatient Hospice- comfort care
History of Present Illness
Today patient got admitted for hospice with comfort care for
85-year-old male with medical history significant for end-stage renal disease on hemodialysis 3 times a week, A-fib on apixaban and recent admission to [facility] for enteritis about 2 to 3 weeks ago was readmitted to the hospital on 10/18 for fatigue,
weakness, fall risk. Patient received hemodialysis at around this admission, burn out tender lace consulted, signal tester consulted for given his chronic lower quadrant abdominal pain. Stool studies showed negative for acute infections including C.
difficile. On CT scan findings include enteritis/ileus with no hannah obstruction signal tester suggested for MR enterography and the findings. suggestive of enteritis with an associated ileitis. Discussed the results with the daughter and
the future management and care. His chronic lower left abdominal pain was secondary to bowel edema probably due to end-stage renal disease. Pain, nausea managed with morphine, Dilaudid, Tigan at this admission. Patient was continuously
deteriorating day-by-day from the time of admission. Canceled the endoscopy procedure by the signal tester but given his condition.
Medical History
Past Medical History
Past Medical History: Reports Arrhythmia, CHF, GERD, HTN, Hypercholesterolemia and Other
Additional Past Medical History:
Benign prostatic hyperplasia
Past Surgical History: Reports None
Social History
Tobacco: Non-smoker
Alcohol: None
Drug: None
Personal: Single
Living: Alone
Employment: Retired
Family History
Family History: Not pertinent
Allergies / Home Medications
Allergies
Allergy/AdvReac Type Severity Reaction Status Date / Time
No Known Allergies Allergy Verified 05/28/25 03:54
Home Medications
apixaban 2.5 mg tablet (Eliquis) 2.5 mg PO BID blood thinner #60 tabs 05/12/21
atorvastatin 80 mg tablet 80 mg PO DAILY High cholesterol 02/17/22
tamsulosin 0.4 mg capsule 0.4 mg PO BID Urinary issue 02/08/22
amlodipine 5 mg tablet 5 mg PO DAILY Blood pressure #30 tabs 12/16/23
furosemide 80 mg tablet 80 mg PO BID Fluid Retention/Swelling 01/06/24
losartan 25 mg tablet 25 mg PO DAILY Blood Pressure 01/06/24
carvedilol 6.25 mg tablet (Coreg) 6.25 mg PO BID #90 tabs 01/09/24
calcium acetate 668 mg (169 mg calcium) tablet 1,336 mg PO DAILY hyperphosphatemia 07/04/25
therapeutic multivitamin 1 tab PO DAILY Supplement 07/04/25
acetaminophen 325 mg tablet (Tylenol) 650 mg PO Q6HPRN PRN mild pain 09/30/25
diphenhydramine HCl 25 mg capsule (Benadryl) 25 mg PO DAILYPRN PRN allergies 09/30/25
hydroxyzine HCl 10 mg tablet 10 mg PO HS Sleep 09/30/25
loperamide 2 mg tablet 2 mg PO BIDPRN PRN dirrhea 09/30/25
Allergies reflects when Allergies were last updated in [facility].
Home Medications with original date entered in [facility]
Allergy/Medication List:
Allergies
Allergy/AdvReac Type Severity Reaction Status Date / Time
No Known Allergies Allergy Verified 05/28/25 03:54
Home Medications
apixaban 2.5 mg tablet (Eliquis) 2.5 mg PO BID blood thinner #60 tabs 05/12/21
atorvastatin 80 mg tablet 80 mg PO DAILY High cholesterol 01/03/22
tamsulosin 0.4 mg capsule 0.4 mg PO BID Urinary issue 02/08/22
amlodipine 5 mg tablet 5 mg PO DAILY Blood pressure #30 tabs 12/16/23
furosemide 80 mg tablet 80 mg PO BID Fluid Retention/Swelling 01/06/24
losartan 25 mg tablet 25 mg PO DAILY Blood Pressure 01/06/24
carvedilol 6.25 mg tablet (Coreg) 6.25 mg PO BID #90 tabs 01/09/24
calcium acetate 668 mg (169 mg calcium) tablet 1,336 mg PO DAILY hyperphosphatemia 07/04/25
therapeutic multivitamin 1 tab PO DAILY Supplement 07/04/25
acetaminophen 325 mg tablet (Tylenol) 650 mg PO Q6HPRN PRN mild pain 09/30/25
diphenhydramine HCl 25 mg capsule (Benadryl) 25 mg PO DAILYPRN PRN allergies 09/30/25
hydroxyzine HCl 10 mg tablet 10 mg PO HS Sleep 09/30/25
loperamide 2 mg tablet 2 mg PO BIDPRN PRN dirrhea 09/30/25
Review of Systems
-
History Source: Patient
A 12 point ROS was completed and negative except as noted: Yes
Physical Exam
Physical Exam
General: Appears in Distress and Pain
Respiratory: Clear
Cardiac: S1/S2 and Irregular Rhythm
GI: Soft, Non Distended and Tender
Musculoskeletal: No Clubbing and No Cyanosis
Skin: IV/Catheter Site (AV dialysis fistula present on the left side) and Other
Neuro: AO x 3
Hematologic/Lymphatic: No Lymphadenopathy
Psych: Calm
Impression/Plan
-
IMPRESSION & PLAN:
85-year-old male with medical history significant for end-stage renal disease on hemodialysis 3 times a week, A-fib on apixaban and recent admission to [facility] for enteritis about 2 to 3 weeks ago was readmitted to the hospital on 10/18 for fatigue,
weakness, fall risk. Patient received hemodialysis at around this admission, burn out tender lace consulted, signal tester consulted for given his chronic lower quadrant abdominal pain. Stool studies showed negative for acute infections including C.
difficile.
On CT scan findings include enteritis/ileus with no hannah obstruction signal tester suggested for MR enterography and the findings suggestive of enteritis with an associated ileitis.
Discussed the results with the daughter and the future management and care. His chronic lower left abdominal pain was secondary to bowel edema probably due to end-stage renal disease.
# Ambulatory dysfunction
# Chronic nausea/vomiting secondary to bowel edema probably end-stage renal disease could be the cause
# History of cerebrovascular accident with left hemiparesis
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
# Chronic HFmrEF
# Paroxysmal atrial fibrillation
# Insulin required type 2 diabetes mellitus
# Benign hypertension
# Benign prostatic hyperplasia.
plan:
After discussing with daughter, patient and on his current state of end-stage renal disease with partial hemodialysis (because patient cannot tolerate full-time hemodialysis he experiences dizziness), he is currently admitted to inpatient hospice
for his comfort care which includes morphine, glycopyrrolate, diet as tolerated, lorazepam.
DNR code
[2025-10-24] MEDS: MORPHINE SULFATE 2 MG IV ×3 (18:07→22:00)
[2025-10-24] MEDS: ATIVAN 1 MG PO ×2 (18:19→21:20)
--- NOTE | 2025-10-24 20:17 | HOSPNOTE ---
Patient has been admitted to inpatient hospice services. Hospice will visit daily..
[2025-10-24] MEDS: ZYRTEC 10 MG PO (22:04)
[2025-10-24] MEDS: TIGAN 200 MG IM (22:04)
[2025-10-25] MEDS: MORPHINE SULFATE 2 MG IV ×2 (00:51→02:16)
[2025-10-25] MEDS: ATIVAN 1 MG PO (00:52)
[2025-10-25] MEDS: CALAMINE LOTION 180 ML TOPICAL (01:15)
--- NOTE | 2025-10-25 03:12 | W.PN.DEATH ---
Addendum entered and electronically signed by BLAYNE Toure 10/25/25 04:35:
[facility] called as the patient came to the hospital for assessment due to weakness and multiple falls. Spoke to Shante Sanchez and enrrique to process with the certification.
Original Note:
Pronouncement of
-
Called to see patient to pronounce.
No spontaneous heart tones or respirations noted.
Patient not responsive to verbal stimuli.
Patient is pronounced .
Time of : 02:47
Date of : 10/25/25
Cause of : End stage renal disease, anemia, chronic heart failure, Ambulatory dysfunction and multiple falls.
Family Notified: Yes (Daughter/ Elle notified )
--- NOTE | 2025-10-25 09:41 | CM ---
Patient on this date, 10/25/25 at 02:47.
== END 2025-10-25 02:47 | disposition expired | DRG 951 ==
LOC: 2 NORTH 17:08
PROVIDERS: ADMITTING PHYSICIAN Internal Medicine
DX: Z51.5 Encounter for palliative care (principal); N18.6 End stage renal disease; I13.2 Hypertensive heart and chronic kidney disease with heart failure and with stage 5 chronic kidney disease, or end stage renal disease; I50.22 Chronic systolic (congestive) heart failure; I69.354 Hemiplegia and hemiparesis following cerebral infarction affecting left non-dominant side; I48.0 Paroxysmal atrial fibrillation; E11.22 Type 2 diabetes mellitus with diabetic chronic kidney disease; R53.1 Weakness; R53.83 Other fatigue; K52.9 Noninfective gastroenteritis and colitis, unspecified; E78.00 Pure hypercholesterolemia, unspecified; K21.9 Gastro-esophageal reflux disease without esophagitis; N40.0 Benign prostatic hyperplasia without lower urinary tract symptoms; L29.9 Pruritus, unspecified; R29.6 Repeated falls; D64.9 Anemia, unspecified; Z66 Do not resuscitate; Z79.01 Long term (current) use of anticoagulants; Z91.81 History of falling; Z79.4 Long term (current) use of insulin; Z99.2 Dependence on renal dialysis